=== PATIENT | female | born 1960 | race Caucasian/White ===

== ENCOUNTER 2017-10-16 06:36 | Emergency (ER) | payer BC, SELFPAY ==
[2017-10-16 06:37] VITALS: BP 204/93; PULSE 58; RESP 16; TEMP 36.4; O2SAT 98; BMI 22.0
--- NOTE | 2017-10-16 07:06 | EKG12_ITS ---
Test Reason : DIZZINESS Blood Pressure : / mmHG Vent. Rate : 055 BPM Atrial Rate : 055 BPM P-R Int : 188 ms QRS Dur : 078 ms QT Int : 434 ms P-R-T Axes : 050 064 086 degrees QTc Int : 415 ms Sinus bradycardia Nonspecific T wave abnormality Abnormal ECG Confirmed by HEMA DE LEON, ROSE ([id number]), order editor AUDI WEEKS ([id number]) on 10/18/2017 12:57:34 PM Referred By: FREDO Confirmed By:ROSE GARRIDO MD
[2017-10-16 07:19] VITALS: BP 157/98; BP 162/90; BP 175/92; PULSE 52; PULSE 55; PULSE 57
[2017-10-16] MEDS: 0.9% Normal Saline 1,000 ML 150 ML IV (07:19)
[2017-10-16 07:24] LABS: Absolute Lymphocyte Count 1.37 X10^3/ul (0.83-4.51); Absolute Neutrophil Count 4.6 X10^3/uL (2.0-7.7); Basophil# 0.04 X10^3/uL; Basophil% 0.6 % (0-1); Eosinophil# 0.17 X10^3/uL; Eosinophils% 2.5 % (0-5); Hematocrit 38.1 % (37-47); Hemoglobin 12.4 g/dl (12.0-15.0); Lymphocyte # 1.37 X10^3/ul (4.0); Lymphocyte % 19.9 % (19-41); Mean Corp Hgb Conc 32.5 g/gl (32-36); Mean Corpuscular Hgb 29.1 pg (27.0-32.0); Mean Corpuscular Volume 89.4 fL (81-99); Mean Platelet Vol. 10.7 fl (6.2-12.0); Monocyte# 0.67 X10^3/uL; Monocyte% 9.7 % (0-10); Neutrophil # 4.62 X10^3/uL (2.7-7.7); Neutrophil % 67.2 % (47-70); POSITIVE COUNT NO; POSITIVE DIFFERENTIAL NO; POSITIVE MORPHOLOGY NO; Platelet Count 240 K/mm3 (150-450); RBC Distribution Width CV 13.4 % (11.6-14.6); RBC Distribution Width SD 43.8 fl (35.1-43.9); Red Blood Count 4.26 M/mm3 (4.2-5.4); White Blood Count 6.9 K/mm3 (4.4-11.0)
[2017-10-16 07:31] LABS: Anion Gap 7 (5-15); BUN 18 mg/dL (7-18); BUN/Creat Ratio 28.6 RATIO (10-20); Calcium,Total 8.9 mg/dL (8.5-10.1); Chloride 105 mmol/L (98-107); Creatinine, Serum 0.63 mg/dL (0.55-1.02); EST Glomerular Filtration Rate 103 mL/min (>60); Est Glom Filt Rate - Afr Amer 124 mL/min (>60); Glucose 116 mg/dL (74-106); Potassium 3.8 mmol/L (3.5-5.1); Sodium Level 140 mmol/L (136-145)
[2017-10-16 08:04] VITALS: BP 163/81; PULSE 54; RESP 16; O2SAT 99
--- NOTE | 2017-10-16 08:04 | ED.DCSUM_ITS ---
- ER Visit Summary Date of Service: 10/16/17 Chief Complaint: [Nose bleed and dizziness] History of Present Illness: The patient is a 57 F [presents to the emergency department with complaint of feeling lightheaded this morning. Patient states that she had a spontaneous nosebleed from the left side of her nose that started around 1:45 AM today. Patient states that it bled quite a bit and was running down the back of the throat to the point where she was swallowing blood that was thick and congealed. Patient states that it eventually the nosebleed stopped around 4 AM. Patient try to go to work but just did not feel normal so she comes in for evaluation today. Patient states that she did take her blood pressure medicines this morning. Patient denies any trauma to her nose. Patient does not get frequent nosebleeds. Patient is on Plavix and has a history of a cardiac stent. And states that normally her blood pressure is in the 130 systolic.] Denies recent illness. Patient denies any chest pain or shortness of breath. Patient denies exertional dyspnea. Denies vertiginous symptoms. Physical Examination: [HEENT-PERRLA, EOMI. Cranial nerves II through XII grossly intact. TMs clear. Mucous membranes moist. No adenopathy. Patient is noted to have small amount of dried blood in the left nasal vault with a small area of clot noted on the anterior septum where I suspect the source of the bleeding originated. There is no blood down the posterior oropharynx. Cardiovascular-regular rate and rhythm without murmur or ectopy Lungs-clear to auscultation, chest wall stable without crepitus or subcu emphysema Abdomen-normoactive bowel sounds, soft, nontender, no rebound or rigidity, no peritoneal signs. Extremities-intact ?4, normal range of motion, normal pulses, atraumatic] Test Results: [EKG obtained showed a sinus rhythm with a ventricular rate of 55 bpm with some nonspecific ST changes. CBC with differential was normal. Chemistries were normal. Troponin was less than 0.02. Orthostatic vital signs were negative] Emergency Department Course and Treatment: [Was just observed in the emergency department and her blood pressure improved into the 150s and 160s systolic with diastolics in the 80s. When I feel no further treatment of her blood pressures indicated.] Treatment Plan: [Patient advised to rest today and advised not to pick or blow her nose. Patient advised that if her know should start bleeding again to hold constant pressure for 20 minutes and if that does not resolve it to return to the emergency department.] Disposition: [Discharged to home in stable condition.] Impression: [Epistaxis left anterior septum Hypertension-established Dizziness-resolved ] This note was generated with [employer] dictation software. It may contain incorrect words, spelling, and punctuation that were not noted in review of the chart prior to signing ED Disposition - Plan for ED Patient: Chief Complaint: Dizziness Referrals: Care Physician,No Primary [Primary Care Provider] -
--- NOTE | 2017-10-16 08:05 | ED.DEP ---
ED Disposition - Plan for ED Patient: Chief Complaint: Dizziness Instructions: ED Dizziness UKO, ED Nosebleed, ED HTN Established Referrals: Care Physician,No Primary [Primary Care Provider] - Brian Stephenson III, MD [STAFF PHYSICIAN] - 3-5 Days
== END 2017-10-16 08:12 | disposition home or self-care (01) ==
PROVIDERS: Emergency Provider Emergency Medicine
DX: R04.0 Epistaxis (principal); I10 Essential (primary) hypertension; R42 Dizziness and giddiness; I25.10 Atherosclerotic heart disease of native coronary artery without angina pectoris; Z90.710 Acquired absence of both cervix and uterus; Z95.5 Presence of coronary angioplasty implant and graft; Z98.1 Arthrodesis status; Z79.02 Long term (current) use of antithrombotics/antiplatelets; Z79.899 Other long term (current) drug therapy; Z72.0 Tobacco use
CPT/HCPCS: 80048; 84484; 85025; 93005; 96360; 99285; A4216

== ENCOUNTER → 2018-06-22 09:48 | Outpatient (CLI) | payer BC, SELFPAY ==
[2018-06-22 11:43] LABS: AST(SGOT) 25 U/L (15-37); Alanine Aminotransfer ALT/SGPT 28 U/L (13-56); Albumin, Serum 3.3 g/dL (3.2-5.0); Alkaline Phosphatase 86 U/L (45-117); Anion Gap 6 (5-15); BUN 13 mg/dL (7-18); BUN/Creat Ratio 23.6 RATIO (10-20); Bilirubin, Direct 0.16 mg/dL (0.00-0.30); Calcium,Total 8.4 mg/dL (8.5-10.1); Chloride 108 mmol/L (98-107); Cholesterol 101 mg/dL (200); Creatinine, Serum 0.55 mg/dL (0.55-1.02); EST Glomerular Filtration Rate 120 mL/min (>60); Est Glom Filt Rate - Afr Amer 145 mL/min (>60); Globulin 3.5 g/dL (2.2-4.2); Glucose 96 mg/dL (74-106); High Density Lipoprotein 54 mg/dL; Potassium 4.1 mmol/L (3.5-5.1); Protein, Total 6.8 g/dL (6.4-8.2); Sodium Level 140 mmol/L (136-145); Triglycerides 44 mg/dL; Very Low Density Lipoprotein 9 mg/dL (5-40)
== END ==
PROVIDERS: Family Provider Internal Medicine; PCP Internal Medicine; Referring Provider Nurse Practitioner Family; Visit Provider Nurse Practitioner Family
DX: I10 Essential (primary) hypertension (principal); I25.10 Atherosclerotic heart disease of native coronary artery without angina pectoris; E78.00 Pure hypercholesterolemia, unspecified; Z95.5 Presence of coronary angioplasty implant and graft
CPT/HCPCS: 36415; 80048; 80061; 80076

== ENCOUNTER → 2019-07-15 09:44 | Outpatient (CLI) | payer BC, SELFPAY ==
[2019-07-09 16:02] VITALS: BMI 21.7
--- NOTE | 2019-07-15 09:45 | CDU_ITS ---
Reason For Study: carotid stenosis Rt. Velocities/BP Lt. Velocities/BP Prox CCA 83.3/15.5 cm/sec. Prox CCA 102.7/24.1 cm/sec. Mid CCA 78.1/15.5 cm/sec. Mid CCA 81.8/24.1 cm/sec. Dist CCA 72.9/19.4 cm/sec. Dist CCA 64.4/18.2 cm/sec. Prox ICA 54.1/15.6 cm/sec. Prox ICA 66.6/23.7 cm/sec. Mid ICA 71.3/18.6 cm/sec. Mid ICA 74.3/23.7 cm/sec. Dist ICA 64.7/15.3 cm/sec. Dist ICA 74.3/27.0 cm/sec. Rt. ICA/CCA = 71.3/78.1=0.9. Lt. ICA/CCA = 74.3/81.8=0.9. Prox ECA 61.2/11.6 cm/sec. Prox ECA 67.7/17.1 cm/sec. Rt. Vert. 42.4/9.4 cm/sec. Lt. Vert. 41.8/7.8 cm/sec. Right Extracranial There is intimal thickening but no significant atherosclerotic plaque noted in the right common carotid artery. There is intimal thickening but no significant atherosclerotic plaque noted in the right internal carotid artery. There is no significant atherosclerotic plaque noted in the right external carotid artery. Antegrade flow is noted in the right vertebral artery. Left Extracranial There is intimal thickening but no significant atherosclerotic plaque noted in the left common carotid artery. There is heterogeneous, irregular atherosclerotic plaque noted in the left internal carotid artery. There is heterogeneous, irregular atherosclerotic plaque noted in the left external carotid artery. Antegrade flow is noted in the left vertebral artery. Procedure Carotid Duplex [id number]. The exam was diagnostic. Exam performed in department. Interpretation Summary Mild (<50%) stenosis right extracranial internal carotid. Mild (<50%) stenosis left extracranial internal carotid. Flow within the vertebral arteries is antegrade bilaterally. Ordering Physician: Feliz Clancy Referring Physician: Cora Nguyễn Performed By: Obdulia Doherty RDCS, RVT
[2019-07-15 13:08] LABS: AST(SGOT) 22 U/L (15-37); Alanine Aminotransfer ALT/SGPT 28 U/L (13-56); Albumin, Serum 3.4 g/dL (3.2-5.0); Alkaline Phosphatase 78 U/L (45-117); Bilirubin, Direct 0.16 mg/dL (0.00-0.30); Cholesterol 108 mg/dL (200); Globulin 3.2 g/dL (2.2-4.2); High Density Lipoprotein 53 mg/dL; Protein, Total 6.6 g/dL (6.4-8.2); Triglycerides 61 mg/dL; Very Low Density Lipoprotein 12 mg/dL (5-40)
== END ==
PROVIDERS: Family Provider Internal Medicine; PCP Internal Medicine; Referring Provider Internal Medicine Cardiovascular Disease; Visit Provider Internal Medicine Cardiovascular Disease
DX: I73.9 Peripheral vascular disease, unspecified (principal); E78.00 Pure hypercholesterolemia, unspecified; I65.23 Occlusion and stenosis of bilateral carotid arteries
CPT/HCPCS: 36415; 80061; 80076; 93880

== ENCOUNTER 2019-08-12 09:47 | Emergency (ER) | payer BC, SELFPAY ==
[2019-07-09 16:02] VITALS: BMI 21.7
[2019-08-12 09:47] VITALS: BP 161/104; PULSE 102; RESP 16; TEMP 36.6; O2SAT 98; BMI 20.9
--- NOTE | 2019-08-12 10:12 | ED.DCSUM_ITS ---
History of Present Illness Chief Complaint: Nosebleed Informant: Patient Onset: Today Timing: Continuous Narrative: Patient is a 59-year-old female with a history of coronary artery disease status post stent placement presenting with a nosebleed. Patient states she has had nosebleeds in the past and has followed with ENT before for her ears. She notes this morning she blew her nose when her nose started bleeding. She held pressure but it continued to bleed. Patient states that she tilts her head back she feels blood-brain to the back of her throat. Is been out of the left side. She has associated pain or lightheadedness. Is been persistent for a little over 2 hours she came to the emergency room for further evaluation. She denies any other complaints at this time. She notes she is on Plavix and does tend to bleed easily if she cuts herself. Past Medical History - Allergies and Home Meds Allergies/Adverse Reactions: Allergies codeine Allergy (Intermediate, Verified 08/12/19 09:47) nausea and vomiting Primary Care Physician: Cora Nguyễn MD [Primary Care Provider] - Past Medical History: - - Coronary artery disease, hypertension, hyperlipidemia Surgical History: - - PCI Smoking Status: Heavy Smoker (>10/day) Review of Systems General: Denies: Chills, Fever, Sweats Eyes: Denies: Visual changes - bilaterally, Diplopia ENT: Reports: - - Epistaxis. Denies: Rhinorrhea, Sore throat Cardiovascular: Denies: Chest pain, Palpitations Respiratory: Denies: Dyspnea, Cough, Dyspnea on exertion Gastrointestinal: Denies: Abdominal pain, Nausea, Vomiting, Diarrhea, Melena, Hematochezia Genitourinary: Denies: Dysuria, Hematuria, Frequency Musculoskeletal: Denies: Back pain, Extremity Pain Skin: Denies: Rash, Wounds Neurological: Denies: Headache, Weakness, Numbness Physical Exam Vital Signs/Narrative: Vital Signs Temp Pulse Resp BP Pulse Ox 08/12/19 09:47 97.8 F 102 H 16 161/104 H 98 Inital Vital Signs reviewed: Yes General: Well nourished, Well developed, No Acute Distress Head: Normocephalic, Atraumatic Eyes: Perrl, EOMI ENT: Moist mucous membranes, No rhinorrhea, - - Epistaxis from the left naris present. There is active bleeding. A clot is visualized in the oropharynx but no active bleeding. The source of bleeding cannot be visualized on exam. Neck: Supple, Nontender Cardiovascular: Regular rate, Regular rhythm, No murmurs Respiratory: No distress, CTA bilaterally, Chest nontender Abdomen: Soft, Nontender, Nondistended, Normal bowel sounds Back: Nontender, Normal Inspection Extremities: Nontender, No edema Skin: Normal color, No rash Neurological: Alert, Oriented x3, Cranial nerves II-XII grossly intact, Normal Strength, Normal Sensation Psychological: Normal affect, Normal Mood Procedures Procedure(s): Epistaxis care, nasal packing. Patient evacuate the clots from her nose. Afrin is inserted intranasally. Cottonball soaked in Slovan solution is then placed in the left naris which appears to be the source of the bleeding. After about 5 minutes this is removed. Patient does not seem to have further bleeding at this time. Again I cannot visualize the source of bleeding. A 5.5 cm Rhino Rocket is placed. It does take 2 attempts as patient does not tolerate the discomfort well. 3 cc of air is inflated in the packing. Patient has no further evidence of bleeding. ED Disposition - Plan for ED Patient: Disposition: Home or Assisted Living Diagnosis: Epistaxis Instructions: Nosebleed Prescriptions: Amoxicillin/Potassium Clav [Augmentin 875-125 Tablet] 1 ea PO BID #14 tab Prescription Printed Ibuprofen [Motrin] 600 mg PO Q8H PRN PRN #15 tab PRN Reason: Pain Or Fever Prescription Printed Hydrocodone Bitart/Apap 5-325 [[place] 5MG-325MG] 1 tab PO Q8H PRN PRN 4 Days #12 tab PRN Reason: Pain Prescription Printed Referrals: Cora Nguyễn MD [Primary Care Provider] - Claudio Baron MD [STAFF PHYSICIAN] - Additional Instructions: Call Dr. Terrell, today to arrange follow-up over the next few days for removal of your nasal packing. Take the antibiotics as long as the packing is in place. Return if you have further bleeding or new symptoms.
[2019-08-12] MEDS: Oxymetazoline 0.05% 1 SPRAY SPRAY.BTL 2 SPRAY NASAL (10:37)
[2019-08-12] MEDS: Mixture 30 ML Bottle 5 ML TOPICAL (10:38)
[2019-08-12] MEDS: Ibuprofen 600 MG Tablet PO (11:39)
== END 2019-08-12 11:55 | disposition home or self-care (01) ==
PROVIDERS: Emergency Provider Emergency Medicine; Family Provider Internal Medicine; PCP Internal Medicine
DX: R04.0 Epistaxis (principal); I25.10 Atherosclerotic heart disease of native coronary artery without angina pectoris; I10 Essential (primary) hypertension; E78.5 Hyperlipidemia, unspecified; Z95.5 Presence of coronary angioplasty implant and graft; Z79.02 Long term (current) use of antithrombotics/antiplatelets; Z79.82 Long term (current) use of aspirin; Z79.899 Other long term (current) drug therapy; F17.200 Nicotine dependence, unspecified, uncomplicated
CPT/HCPCS: 30901; 99283; A4216

== ENCOUNTER 2019-10-25 15:56 | Inpatient (IN) | payer BC, SELFPAY ==
[2019-10-25 15:58] VITALS: BP 149/67; PULSE 55; RESP 17; TEMP 36.8; O2SAT 99; BMI 21.9
--- NOTE | 2019-10-25 16:13 | RAD_ITS ---
STUDY: X-RAY CHEST REASON FOR EXAM: Female, 59 years old. FALL, PRE OP, SMOKER, STENT TECHNIQUE: AP COMPARISON: None FINDINGS: Fusion hardware the lower cervical spine. Coarsened interstitial lung markings (suggesting fibrotic changes) but no airspace consolidation. There is no demonstrated pleural abnormality. Normal size heart. Normal mediastinum and rosamaria. Normal visualized pulmonary arteries. There is atherosclerotic calcification of the aortic arch with tortuosity. There is demineralization of the osseous structures. Normal visualized ribs, clavicles, and shoulders. There is no demonstrated abnormality of the visualized soft tissue structures of the upper abdomen. RAD/Chest 1 View (Portable) IMPRESSION: 1. No acute cardiopulmonary process. Electronically Signed: Luisito Peoples MD (Brooks) at 17:56 EST , Service support ,
--- NOTE | 2019-10-25 16:15 | RAD_ITS ---
STUDY: X-RAY - PELVIS AND LEFT HIP REASON FOR EXAM: Female, 59 years old. FALL, PAIN, DEFORMITY TECHNIQUE: 3 views of the pelvis and hip. COMPARISON: None. FINDINGS: There is a non-specific bowel gas pattern. Left hip soft tissue swelling noted. Normal bilateral iliac wings, sacroiliac joints and visualized sacrum. Normal bilateral superior and inferior pubic rami. Normal pubic symphysis. Normal bilateral ischial tuberosities. Normal visualized femoral head. Normal acetabulum. Normal hip joint. Left intratrochanteric fracture identified with varus deformity. There is approximately 2.3 cm of displacement of the lesser trochanter medially. RAD/HIP, UNI W/ Pelvis 2-3 Views IMPRESSION: Left intratrochanteric fracture with varus deformity. Electronically Signed: Luisito Peoples MD (Brooks) at 17:57 EST , Service support ,
--- NOTE | 2019-10-25 16:15 | ED.DCSUM_ITS ---
History of Present Illness Chief Complaint: Lower Extremity Injury Informant: Patient Onset: Today Current Severity: Severe Maximum Severity: Severe Narrative: Patient presents after fall with left hip injury. Patient states she was walking her dog on the side of the road when she caught her foot on the raised pavement. She landed directly on her left hip. Patient denies any other injury from her fall. EMS to give 50 mcg of fentanyl in route to the hospital. - Past Medical History (1) Anxiety Status: Chronic (2) Atherosclerosis of [place] coronary artery of [place] heart without angina pectoris Status: Chronic Comment: Stenting to LCX in March 2008; (3) Essential (primary) hypertension Status: Chronic (4) History of coronary artery stent placement Status: Chronic Comment: PCI/stent to LCX 03/11/08 (5) Pure hypercholesterolemia Status: Chronic Past Medical History - Allergies and Home Meds Allergies/Adverse Reactions: Allergies codeine Allergy (Intermediate, Verified 10/25/19 15:57) nausea and vomiting Primary Care Physician: Cora Nguyễn MD [Primary Care Provider] - Doctors: [facility] Prior records reviewed: Yes Surgical History: - - PCI Smoking Status: Heavy Smoker (>10/day) Review of Systems General: Denies: Chills, Fever Eyes: Denies: Visual changes - bilaterally ENT: Denies: Bilateral ear pain Cardiovascular: Denies: Chest pain Respiratory: Denies: Dyspnea, Cough Gastrointestinal: Denies: Abdominal pain, Nausea, Vomiting, Diarrhea Musculoskeletal: Reports: Extremity Pain Skin: Denies: Wounds Neurological: Denies: Headache Hematologic: Denies: Easy bruising, Easy bleeding Allergy: Denies: Uticaria Physical Exam Vital Signs/Narrative: Vital Signs Temp Pulse Resp BP Pulse Ox 10/25/19 15:58 98.2 F 55 L 17 149/67 H 99 Inital Vital Signs reviewed: Yes General: Well nourished, Well developed Head: Normocephalic ENT: Moist mucous membranes Neck: Supple Cardiovascular: Bradycardia Respiratory: No distress, CTA bilaterally Abdomen: Soft, Nontender Extremities: - - Tenderness over the left hip. No tenderness over the iliac wing. No tenderness of the knee or lower leg. Strong pulses are noted. She is able to wiggle toes. Patient is lying on her side so leg length discrepancy is difficult to determine at this time. Skin: Normal color Neurological: Alert, Oriented x3 Psychological: Normal affect Diagnostic/Tx/Re-eval Impressions Chest X-Ray 10/25/19 16:13 IMPRESSION: 1. No acute cardiopulmonary process. Electronically Signed: Luisito Peoples MD (Bro[place]) at 17:56 EST , Service support , Hip/Pelvis X-Ray 10/25/19 16:15 IMPRESSION: Left intratrochanteric fracture with varus deformity. Electronically Signed: Luisito Peoples MD (Brooks) at 17:57 EST , Service support , 10/25/19 16:13 Chest 1 View (Portable) [RAD] Stat 10/25/19 16:15 HIP, UNI W/ Pelvis 2-3 Views [RAD] Stat Laboratory Results 10/25/19 10/25/19 10/25/19 16:25 16:25 16:25 WBC 10.5 RBC 4.08 L Hgb 12.8 Hct 38.1 MCV 93.4 MCH 31.4 MCHC 33.6 RDW Std Deviation 46.2 H RDW Coeff of Ace 13.4 Plt Count 235 MPV 10.5 Immature Gran % (Auto) 0.500 Neut % (Auto) 71.5 H Lymph % (Auto) 18.2 L Person % (Auto) 8.3 Eos % (Auto) 1.0 Baso % (Auto) 0.5 Absolute Neuts (auto) 7.5 Absolute Lymphs (auto) 1.91 Nucleated RBC % 0 PT 13.9 INR 1.1 APTT 28.4 Sodium 144 Potassium 3.2 L Chloride 111 H Carbon Dioxide 29.0 Anion Gap 4 L BUN 13 Creatinine 0.63 Estim Creat Clear Calc 91.19 Est GFR (MDRD) Af Amer 123 Est GFR (MDRD) Non-Af 102 BUN/Creatinine Ratio 20.6 H Glucose 116 H Calcium 8.9 - Medical Decision Making Work-up does confirm left intertrochanteric hip fracture. Patient has received multiple small doses of Dilaudid while in the emergency room for pain control. On repeat examination patient still having a lot of spasm in her left thigh. She is given a small dose of Valium to help with spasm. I spoke with Dr. Moura as patient is known to us to orthopedics. Have also spoken with hospitalist. ED Disposition - Plan for ED Patient: Disposition: Acute Care Hospital [facility] Diagnosis: Closed left hip fracture Referrals: Cora Nguyễn MD [Primary Care Provider] -
[2019-10-25 16:33] LABS: Absolute Lymphocyte Count 1.91 X10^3/uL (0.83-4.51); Absolute Neutrophil Count 7.5 X10^3/uL (2.0-7.7); Basophil# 0.05 X10^3/uL; Basophil% 0.5 % (0-1); Hematocrit 38.1 % (37-47); Hemoglobin 12.8 g/dL (12.0-15.0); Lymphocyte # 1.91 X10^3/ul (4.0); Lymphocyte % 18.2 % (19-41); Mean Corp Hgb Conc 33.6 g/dL (32-36); Mean Corpuscular Hgb 31.4 pg (27.0-32.0); Mean Corpuscular Volume 93.4 fL (81-99); Mean Platelet Vol. 10.5 fl (6.2-12.0); Monocyte# 0.87 X10^3/uL; Monocyte% 8.3 % (0-10); NRBC Flagged by Analyzer 0 % (0-5); Neutrophil # 7.51 X10^3/uL (2.7-7.7); Neutrophil % 71.5 % (47-70); Platelet Count 235 K/mm3 (150-450); RBC Distribution Width CV 13.4 % (11.6-14.6); RBC Distribution Width SD 46.2 fl (35.1-43.9); Red Blood Count 4.08 M/mm3 (4.2-5.4); White Blood Count 10.5 K/mm3 (4.4-11.0)
[2019-10-25] MEDS: 0.9% Normal Saline 1,000 ML 150 ML IV (16:39)
[2019-10-25] MEDS: Ondansetron 4 MG/2 ML Vial IV (16:39)
[2019-10-25] MEDS: HYDROmorphone 1 MG/ML Syringe 0.5 MG IV (16:40)
[2019-10-25 16:43] LABS: International Normalized Ratio 1.1; Prothrombin Time (Protime)PT. 13.9 SECONDS (11.7-14.9)
[2019-10-25 16:44] LABS: Partial Thromboplast Time 28.4 Seconds (24.1-36.2)
[2019-10-25 17:07] LABS: Anion Gap 4 (5-15); BUN 13 mg/dL (7-18); BUN/Creat Ratio 20.6 RATIO (10-20); Calcium,Total 8.9 mg/dL (8.5-10.1); Chloride 111 mmol/L (98-107); Creatinine, Serum 0.63 mg/dL (0.55-1.02); EST Glomerular Filtration Rate 102 mL/min (>60); Est Glom Filt Rate - Afr Amer 123 mL/min (>60); Estimated Creatinine Clearance 91.19 ml/min; Glucose 116 mg/dL (74-106); Potassium 3.2 mmol/L (3.5-5.1); Sodium Level 144 mmol/L (136-145)
[2019-10-25] MEDS: HYDROmorphone 0.5 MG/0.5 ML SYRINGE IV ×2 (17:22→18:07)
[2019-10-25 18:00] VITALS: BP 166/88; PULSE 61; RESP 16; O2SAT 92
--- NOTE | 2019-10-25 18:55 | PCM.HP.STD ---
History of Present Illness Date of Admission: 10/25/19 Chief Complaint: Left hip pain The patient is a 59 year old F with a PMH as below who presents after a fall today. She was out walking her dog and tripped on the curb and landed on her left side. She was brought in immediately by EMS. She was found to have a left intertrochanter hip fracture, and orthopedic surgery was consulted. She states that she is in her normal health and she has not been having any issues. She had one stent in 2007 but otherwise has been doing fine. Her lab work was remarkable for a potassium of 3.2, and her blood pressure is just a little bit elevated likely secondary to pain. Past Medical History Past Medical History (Chronic Problems): Chronic Problems (Last Reviewed 07/09/19 @ 15:57 by Isabela Harding) Anxiety (Chronic) Nicotine dependence, cigarettes, uncomplicated (Chronic) Nonrheumatic mitral (valve) insufficiency (Chronic) Nonrheumatic aortic (valve) insufficiency (Chronic) Pure hypercholesterolemia (Chronic) Essential (primary) hypertension (Chronic) History of coronary artery stent placement (Chronic ~03/11/08) PCI/stent to LCX 03/11/08 Atherosclerosis of [place] coronary artery of [place] heart without angina pectoris (Chronic) Stenting to LCX in March 2008; Medical History: Medical History (Last Reviewed 07/09/19 @ 15:57 by Isabela Harding) Nonrheumatic mitral (valve) insufficiency (Chronic) I34.0 Nonrheumatic aortic (valve) insufficiency (Chronic) I35.1 Pure hypercholesterolemia (Chronic) E78.00 Essential (primary) hypertension (Chronic) I10 Atherosclerosis of [place] coronary artery of [place] heart without angina pectoris (Chronic) I25.10 Stenting to LCX in March 2008; Allergies codeine Allergy (Intermediate, Verified 10/25/19 15:57) nausea and vomiting Home Medications: Ambulatory Orders Medication Instructions Recorded atenolol 25 mg tablet 25 mg PO DAILY #90 tab 04/29/19 niacin 500 mg tablet,extended 500 mg PO DAILY #90 tab 06/13/19 release 24 hr aspirin 81 mg tablet,delayed 81 mg PO DAILY 07/09/19 release ferrous gluconate 270 mg (27 mg 270 mg PO BID tab 07/09/19 iron) tablet ramipril 10 mg capsule 20 mg PO DAILY #90 cap 07/09/19 clopidogrel 75 mg tablet 75 mg PO DAILY #90 tab 07/19/19 atorvastatin 80 mg tablet 80 mg PO QHS #90 tab 08/05/19 Amoxicillin/Potassium Clav 1 ea PO BID #14 tab 08/12/19 [Augmentin 875-125 Tablet] Surgical History: Surgical History (Last Reviewed 07/09/19 @ 15:57 by Isabela Harding) History of coronary artery stent placement (Chronic) Onset Date: ~03/11/08 Z95.5 PCI/stent to LCX 03/11/08 History of hysterectomy Z90.710 History of open reduction and internal fixation (ORIF) procedure Z98.890 right side of neck for pinched nerve History of shoulder surgery Z98.890 right ligament repair History of tonsillectomy Z90.89 Surgical History: - - PCI Smoking Status: Heavy Smoker (>10/day) Tobacco Use: Cigarettes Alcohol: None Drugs: None - *Family History Maternal Family History: Family History (Last Reviewed 07/09/19 @ 15:57 by Isabela Harding) Father Myocardial infarction Mother Myocardial infarction Brother CAD (coronary artery disease) Hypertension Sister Hypertension Review of Systems Constitutional: Denies: Chills, Fever, Weight Change HEENT: Denies: Head Aches, Sinus Congestion, Sinus Drainage Cardiovascular: Denies: Chest Pain, Palpitations Respiratory: Denies: Cough, Shortness of breath at rest, Sputum production Gastrointestinal: Denies: Abdominal Pain, Nausea, Vomiting Genitourinary: Denies: Dysuria Musculoskeletal: Reports: Leg Pain. Denies: Joint Pain, Joint Tenderness Skin: Denies: Rash, Wounds Neurological: Denies: Numbness, Tingling, Focal weakness Psychiatric: Denies: Anxiety, Depression Hematologic/ Lymphatic: Denies: Easy Bruising, Easy Bleeding VTE Information - Inpt Only VTE Present on Admission: No Patient Problems: Active and Suspected Problems (Last Reviewed 07/09/19 @ 15:57 by Isabela Harding) Closed left hip fracture (Acute) - Physical Exam Vitals/I&O's: Vital Signs Temp Pulse Resp BP Pulse Ox 98.2 F 61 16 166/88 H 92 10/25/19 15:58 10/25/19 18:00 10/25/19 18:00 10/25/19 18:00 10/25/19 18:00 Oxygen Delivery Method Room Air Weight: 140 lb 3.424 oz Body Mass Index (BMI) 21.9 General: Alert, Oriented x3, Cooperative, No apparent distress HEENT: Atraumatic, PERRLA, EOMI, Normocephalic Oral: Moist Mucosa Neck: Supple, No JVD Lungs: Clear to auscultation, Normal air movement, No rhonchi, No wheeze, No rales Cardiovascular: Regular rate, Regular Rhythm, Normal S1, Normal S2, No murmurs Abdomen: Soft, Non Tender, Non-Distended, No Hepato-splenomegaly Extremities: No edema, Capillary Refill Less than 3 Seconds Musculoskeletal: Tenderness - Left hip with muscle spasm Neurological: Neuro grossly intact, Sensory exam intact to light touch and pain Psych/Mental Status: Normal Affect, Appropriate Laboratory Results 10/25/19 16:25: WBC 10.5, RBC 4.08 L, Hgb 12.8, Hct 38.1, MCV 93.4, MCH 31.4, MCHC 33.6, RDW Std Deviation 46.2 H, RDW Coeff of Ace 13.4, Plt Count 235, MPV 10.5, Immature Gran % (Auto) 0.500, Neut % (Auto) 71.5 H, Lymph % (Auto) 18.2 L, [place] % (Auto) 8.3, Eos % (Auto) 1.0, Baso % (Auto) 0.5, Absolute Neuts (auto) 7.5, Absolute Lymphs (auto) 1.91, Nucleated RBC % 0 10/25/19 16:25: PT 13.9, INR 1.1, APTT 28.4 10/25/19 16:25: Sodium 144, Potassium 3.2 L, Chloride 111 H, Carbon Dioxide 29.0, Anion Gap 4 L, BUN 13, Creatinine 0.63, Estim Creat Clear Calc 91.19, Est GFR (MDRD) Af Amer 123, Est GFR (MDRD) Non-Af 102, BUN/Creatinine Ratio 20.6 H, Glucose 116 H, Calcium 8.9 Current Medications Sodium Chloride () 1,000 mls @ 150 mls/hr IV .Q6H40M [facility] Last Admin: 10/25/19 16:39 Dose: 150 mls/hr Documented by: Assessment/Plan All Active Problems (Last Reviewed 11/06/19 @ 15:57 by Isabela Harding) Closed left hip fracture (Acute) 1. Left acute intertrochanteric hip fracture -Consult orthopedic surgery, plan for surgery on Sunday -Risk calculator is in the chart -PT/OT -IV and p.o. pain medications -We will also provide p.o. Valium for muscle spasms 2. CAD status post stent/HTN/HLD -Her most recent stent was in 2007 -Can hold her aspirin and her Plavix for surgery -Continue with atenolol, Lipitor, ramipril, niacin DVT: Lovenox Code Visit Inpatient E&M: 43705 Init Hosp L2
[2019-10-25] MEDS: diazePAM 5 MG Tablet 2.5 MG PO (19:18)
[2019-10-25 20:11] VITALS: BMI 22.0
[2019-10-25 20:15] VITALS: BP 161/92; PULSE 64; RESP 18; TEMP 36.4; O2SAT 96
[2019-10-25] MEDS: Morphine 4 MG/ML Syringe IV (20:33)
[2019-10-25] MEDS: diazePAM 2 MG Tablet 4 MG PO (20:33)
[2019-10-25] MEDS: Atorvastatin Calcium 80 MG Tablet PO (23:03)
[2019-10-25] MEDS: oxyCODONE 5 MG Tablet PO (23:03)
[2019-10-25 23:06] VITALS: BMI 22.0
[2019-10-26] VITALS (7 sets, daily range): BP systolic 147–188; BP diastolic 86–92; PULSE 59–74; RESP 16–18; TEMP 36.8–37.3; O2SAT 88–96
[2019-10-26] MEDS: diazePAM 2 MG Tablet 4 MG PO ×4 (01:16→22:59)
[2019-10-26] MEDS: Morphine 4 MG/ML Syringe IV ×7 (01:16→22:38)
[2019-10-26] MEDS: 0.9% Saline Lock 10 ML Syringe IV ×7 (01:19→19:11)
[2019-10-26] MEDS: oxyCODONE 5 MG Tablet PO ×4 (03:34→21:09)
[2019-10-26 06:15] LABS: Absolute Lymphocyte Count 0.84 X10^3/uL (0.83-4.51); Absolute Neutrophil Count 6.3 X10^3/uL (2.0-7.7); Basophil# 0.02 X10^3/uL; Basophil% 0.2 % (0-1); Eosinophil# 0.03 X10^3/uL; Eosinophils% 0.4 % (0-5); Hematocrit 36.2 % (37-47); Hemoglobin 11.6 g/dL (12.0-15.0); Lymphocyte # 0.84 X10^3/ul (4.0); Lymphocyte % 10.4 % (19-41); Mean Corpuscular Hgb 30.7 pg (27.0-32.0); Mean Corpuscular Volume 95.8 fL (81-99); Mean Platelet Vol. 10.9 fl (6.2-12.0); Monocyte# 0.85 X10^3/uL; Monocyte% 10.5 % (0-10); NRBC Flagged by Analyzer 0 % (0-5); Neutrophil # 6.32 X10^3/uL (2.7-7.7); Neutrophil % 78.1 % (47-70); Platelet Count 176 K/mm3 (150-450); RBC Distribution Width CV 13.7 % (11.6-14.6); RBC Distribution Width SD 48.5 fl (35.1-43.9); Red Blood Count 3.78 M/mm3 (4.2-5.4); White Blood Count 8.1 K/mm3 (4.4-11.0)
[2019-10-26 06:38] LABS: Anion Gap 5 (5-15); BUN 14 mg/dL (7-18); BUN/Creat Ratio 28.3 RATIO (10-20); Calcium,Total 8.4 mg/dL (8.5-10.1); Chloride 110 mmol/L (98-107); EST Glomerular Filtration Rate 135 mL/min (>60); Est Glom Filt Rate - Afr Amer 163 mL/min (>60); Estimated Creatinine Clearance 110.61 ml/min; Glucose 120 mg/dL (74-106); Potassium 4.1 mmol/L (3.5-5.1); Sodium Level 139 mmol/L (136-145)
--- NOTE | 2019-10-26 07:38 | PCM.PN.HOSP ---
Patient Problems: Active and Suspected Problems (Last Reviewed 07/09/19 @ 15:57 by Isabela Harding) Closed left hip fracture (Acute) Reason for Visit: Follow-up on left hip fracture Subjective: Patient was seen and examined. She complains of severe pain in the left hip. Denied any dizziness or palpitations or shortness of breath. Objective: Physical exam: General: Alert, Oriented x3, Cooperative, No apparent distress HEENT: Atraumatic, PERRLA, EOMI, Normocephalic Oral: Moist Mucosa Neck: Supple, No JVD Lungs: Clear to auscultation, Normal air movement, No rhonchi, No wheeze, No rales Cardiovascular: Regular rate, Regular Rhythm, Normal S1, Normal S2, No murmurs Abdomen: Soft, Non Tender, Non-Distended, No Hepato-splenomegaly Extremities: No edema, underlies over the left hip, external rotation of the left lower extremity Musculoskeletal: Tenderness - Left hip with muscle spasm Neurological: Neuro grossly intact, Sensory exam intact to light touch and pain Psych/Mental Status: Normal Affect, Appropriate Vitals/I&O's: Vital Signs Temp Pulse Resp BP Pulse Ox 99.1 F 74 17 147/92 H 95 10/26/19 02:15 10/26/19 02:15 10/26/19 02:15 10/26/19 02:15 10/26/19 02:15 Oxygen Delivery Method Room Air Weight: 63.6 kg Body Mass Index (BMI) 22.0 Intake and Output for Last 24 Hours 10/24/19 10/25/19 10/26/19 23:59 23:59 23:59 Intake Total 1000 / 1000 740 / 740 Output Total 650 / 650 Balance 1000 / 1000 90 / 90 Laboratory Results 10/25/19 16:25: WBC 10.5, RBC 4.08 L, Hgb 12.8, Hct 38.1, MCV 93.4, MCH 31.4, MCHC 33.6, RDW Std Deviation 46.2 H, RDW Coeff of Ace 13.4, Plt Count 235, MPV 10.5, Immature Gran % (Auto) 0.500, Neut % (Auto) 71.5 H, Lymph % (Auto) 18.2 L, Evangeline % (Auto) 8.3, Eos % (Auto) 1.0, Baso % (Auto) 0.5, Absolute Neuts (auto) 7.5, Absolute Lymphs (auto) 1.91, Nucleated RBC % 0 10/25/19 16:25: PT 13.9, INR 1.1, APTT 28.4 10/25/19 16:25: Sodium 144, Potassium 3.2 L, Chloride 111 H, Carbon Dioxide 29.0, Anion Gap 4 L, BUN 13, Creatinine 0.63, Estim Creat Clear Calc 91.19, Est GFR (MDRD) Af Amer 123, Est GFR (MDRD) Non-Af 102, BUN/Creatinine Ratio 20.6 H, Glucose 116 H, Calcium 8.9 10/26/19 05:53: WBC 8.1, RBC 3.78 L, Hgb 11.6 L, Hct 36.2 L, MCV 95.8, MCH 30.7, MCHC 32.0, RDW Std Deviation 48.5 H, RDW Coeff of Ace 13.7, Plt Count 176, MPV 10.9, Immature Gran % (Auto) 0.400, Neut % (Auto) 78.1 H, Lymph % (Auto) 10.4 L, Evangeline % (Auto) 10.5 H, Eos % (Auto) 0.4, Baso % (Auto) 0.2, Absolute Neuts (auto) 6.3, Absolute Lymphs (auto) 0.84, Nucleated RBC % 0 10/26/19 05:53: Sodium 139, Potassium 4.1, Chloride 110 H, Carbon Dioxide 24.0, Anion Gap 5, BUN 14, Creatinine 0.50 L, Estim Creat Clear Calc 110.61, Est GFR (MDRD) Af Amer 163, Est GFR (MDRD) Non-Af 135, BUN/Creatinine Ratio 28.3 H, Glucose 120 H, Calcium 8.4 L Current Medications Atenolol (Tenormin (Beta Zeina)) 25 mg PO DAILY [facility] Atorvastatin Calcium (Lipitor) 80 mg PO QHS [facility] Last Admin: 10/25/19 23:03 Dose: 80 mg Documented by: Diazepam (Valium) 4 mg PO 4X/DAY PRN PRN PRN Reason: Muscle spasm left leg Last Admin: 10/26/19 01:16 Dose: 4 mg Documented by: Enoxaparin Sodium (Lovenox) 40 mg SC DAILY [facility] Sodium Chloride () 250 mls @ 15 mls/hr IV .[id number] PRN PRN Reason: Saline Flush Melatonin (Melatonin) 3 mg PO QHS PRN PRN PRN Reason: INSOMNIA Morphine Sulfate () 4 mg IV Q3H PRN PRN PRN Reason: Pain Score 6-10/10 Last Admin: 10/26/19 04:59 Dose: 4 mg Documented by: Ondansetron HCl (Zofran) 4 mg IV Q8H PRN PRN PRN Reason: NAUSEA/VOMITING Oxycodone HCl (Oxyir) 5 mg PO Q4H PRN PRN PRN Reason: Pain Score 4-5/10 Last Admin: 10/26/19 03:34 Dose: 5 mg Documented by: Ramipril (Altace) 20 mg PO DAILY [facility] Sodium Chloride () 10 - 40 ml IV UD PRN PRN Reason: SALINE FLUSH Last Admin: 10/26/19 05:00 Dose: 10 ml Documented by: Medical Necessity - Tobacco Use Smoking Status: Heavy Smoker (>10/day) Tobacco Use: Cigarettes Assessment/Plan All Active Problems (Last Reviewed 07/09/19 @ 15:57 by Isabela Harding) Closed left hip fracture (Acute) 1. Acute left intertrochanteric hip fracture, pneumatic secondary to mechanical fall Her pain is uncontrolled, continue on oxycodone with morphine as needed 2. Hypertension, fairly uncontrolled, on continue with atenolol, ramipril, continue to monitor 3. CAD status post stent, on aspirin and plavis, statin and beta-zeina Will hold plavix as surgery is tomorrow. Continue aspirin today, hold aspirin tomorrow for surgery Continue on statin and beta-zeina 4. Hypokalemia, resolved, check in a.m. 5. DVT PPx- Lovenox Sc Code Visit Inpatient E&M: 72529 Subs Hosp L2
[2019-10-26] MEDS: Atenolol 25 MG Tablet PO (09:29)
[2019-10-26] MEDS: Enoxaparin 40 MG/0.4 ML Syringe SC (09:30)
[2019-10-26] MEDS: Ramipril 10 MG Capsule 20 MG PO (09:30)
[2019-10-26] MEDS: Aspirin E.C. 81 MG Tablet PO (09:39)
[2019-10-26] MEDS: 0.9% Normal Saline 1,000 ML 75 ML IV ×2 (09:40→22:39)
--- NOTE | 2019-10-26 10:07 | PCM.CONS.GEN ---
Reason for Consult Date of Consultation: 10/26/19 Reason for Consultation: Left hip pain History of Present Illness: The patient is a 59 year old F [who was walking her dog yesterday and fell on a crack in the sidewalk. She suffered a left hip fracture and was admitted to the hospital by the [facility] hospitalist. She reports pain only in her left hip at this time.] Past Medical History Past Medical History (Chronic Problems): Chronic Problems (Last Reviewed 07/09/19 @ 15:57 by Isabela Harding) Anxiety (Chronic) Nicotine dependence, cigarettes, uncomplicated (Chronic) Nonrheumatic mitral (valve) insufficiency (Chronic) Nonrheumatic aortic (valve) insufficiency (Chronic) Pure hypercholesterolemia (Chronic) Essential (primary) hypertension (Chronic) History of coronary artery stent placement (Chronic ~03/11/08) PCI/stent to LCX 03/11/08 Atherosclerosis of [place] coronary artery of [place] heart without angina pectoris (Chronic) Stenting to LCX in March 2008; Medical History: Medical History (Last Reviewed 07/09/19 @ 15:57 by Isabela Harding) Nonrheumatic mitral (valve) insufficiency (Chronic) I34.0 Nonrheumatic aortic (valve) insufficiency (Chronic) I35.1 Pure hypercholesterolemia (Chronic) E78.00 Essential (primary) hypertension (Chronic) I10 Atherosclerosis of [place] coronary artery of [place] heart without angina pectoris (Chronic) I25.10 Stenting to LCX in March 2008; Allergies codeine Allergy (Intermediate, Verified 10/25/19 15:57) nausea and vomiting Home Medications: Ambulatory Orders Medication Instructions Recorded atenolol 25 mg tablet 25 mg PO DAILY #90 tab 04/29/19 niacin 500 mg tablet,extended 500 mg PO DAILY #90 tab 06/13/19 release 24 hr aspirin 81 mg tablet,delayed 81 mg PO DAILY 07/09/19 release ferrous gluconate 270 mg (27 mg 270 mg PO BID tab 07/09/19 iron) tablet ramipril 10 mg capsule 20 mg PO DAILY #90 cap 07/09/19 clopidogrel 75 mg tablet 75 mg PO DAILY #90 tab 07/19/19 atorvastatin 80 mg tablet 80 mg PO QHS #90 tab 08/05/19 Amoxicillin/Potassium Clav 1 ea PO BID #14 tab 08/12/19 [Augmentin 875-125 Tablet] Surgical History: Surgical History (Last Reviewed 07/09/19 @ 15:57 by Isabela Harding) History of coronary artery stent placement (Chronic) Onset Date: ~03/11/08 Z95.5 PCI/stent to LCX 03/11/08 History of hysterectomy Z90.710 History of open reduction and internal fixation (ORIF) procedure Z98.890 right side of neck for pinched nerve History of shoulder surgery Z98.890 right ligament repair History of tonsillectomy Z90.89 Surgical History: - - PCI Smoking Status: Heavy Smoker (>10/day) Tobacco Use: Cigarettes Alcohol: None Drugs: None - *Family History Maternal Family History: Family History (Last Reviewed 07/09/19 @ 15:57 by Isabela Harding) Father Myocardial infarction Mother Myocardial infarction Brother CAD (coronary artery disease) Hypertension Sister Hypertension Review of Systems Musculoskeletal: Reports: Joint Pain - left hip upon falling. Denies prior left hip pain Patient Problems: Active and Suspected Problems (Last Reviewed 07/09/19 @ 15:57 by Isabela Harding) Closed left hip fracture (Acute) - Physical Exam Vitals/I&O's: Vital Signs Temp Pulse Resp BP Pulse Ox 98.3 F 62 18 162/87 H 92 10/26/19 09:27 10/26/19 09:27 10/26/19 09:27 10/26/19 09:27 10/26/19 09:27 Oxygen Flow Rate (L/min) 2 Oxygen Delivery Method Nasal Cannula Weight: 140 lb 3.424 oz Body Mass Index (BMI) 22.0 Intake and Output for Last 24 Hours 10/24/19 10/25/19 10/26/19 23:59 23:59 23:59 Intake Total 1000 / 1000 740 / 740 Output Total 650 / 650 Balance 1000 / 1000 90 / 90 General: Alert, Oriented x3, Cooperative Extremities: No clubbing, No cyanosis, No edema, Capillary Refill Less than 3 Seconds, No Calf Tenderness, Tenderness - About left hip with LLE shortening and external rotation. ROM not tested d/t known fx Neurological: Neuro grossly intact Laboratory Results 10/25/19 16:25: WBC 10.5, RBC 4.08 L, Hgb 12.8, Hct 38.1, MCV 93.4, MCH 31.4, MCHC 33.6, RDW Std Deviation 46.2 H, RDW Coeff of Ace 13.4, Plt Count 235, MPV 10.5, Immature Gran % (Auto) 0.500, Neut % (Auto) 71.5 H, Lymph % (Auto) 18.2 L, Carver % (Auto) 8.3, Eos % (Auto) 1.0, Baso % (Auto) 0.5, Absolute Neuts (auto) 7.5, Absolute Lymphs (auto) 1.91, Nucleated RBC % 0 10/25/19 16:25: PT 13.9, INR 1.1, APTT 28.4 10/25/19 16:25: Sodium 144, Potassium 3.2 L, Chloride 111 H, Carbon Dioxide 29.0, Anion Gap 4 L, BUN 13, Creatinine 0.63, Estim Creat Clear Calc 91.19, Est GFR (MDRD) Af Amer 123, Est GFR (MDRD) Non-Af 102, BUN/Creatinine Ratio 20.6 H, Glucose 116 H, Calcium 8.9 10/26/19 05:53: WBC 8.1, RBC 3.78 L, Hgb 11.6 L, Hct 36.2 L, MCV 95.8, MCH 30.7, MCHC 32.0, RDW Std Deviation 48.5 H, RDW Coeff of Ace 13.7, Plt Count 176, MPV 10.9, Immature Gran % (Auto) 0.400, Neut % (Auto) 78.1 H, Lymph % (Auto) 10.4 L, Carver % (Auto) 10.5 H, Eos % (Auto) 0.4, Baso % (Auto) 0.2, Absolute Neuts (auto) 6.3, Absolute Lymphs (auto) 0.84, Nucleated RBC % 0 10/26/19 05:53: Sodium 139, Potassium 4.1, Chloride 110 H, Carbon Dioxide 24.0, Anion Gap 5, BUN 14, Creatinine 0.50 L, Estim Creat Clear Calc 110.61, Est GFR (MDRD) Af Amer 163, Est GFR (MDRD) Non-Af 135, BUN/Creatinine Ratio 28.3 H, Glucose 120 H, Calcium 8.4 L Current Medications Aspirin (Ecotrin) 81 mg PO DAILY [facility] Last Admin: 10/26/19 09:39 Dose: 81 mg Documented by: Atenolol (Tenormin (Beta Zeina)) 25 mg PO DAILY [facility] Last Admin: 10/26/19 09:29 Dose: 25 mg Documented by: Atorvastatin Calcium (Lipitor) 80 mg PO QHS [facility] Last Admin: 10/25/19 23:03 Dose: 80 mg Documented by: Diazepam (Valium) 4 mg PO 4X/DAY PRN PRN PRN Reason: Muscle spasm left leg Last Admin: 10/26/19 01:16 Dose: 4 mg Documented by: Enoxaparin Sodium (Lovenox) 40 mg SC DAILY [facility] Last Admin: 10/26/19 09:30 Dose: 40 mg Documented by: Sodium Chloride () 250 mls @ 15 mls/hr IV .[id number] PRN PRN Reason: Saline Flush Sodium Chloride () 1,000 mls @ 75 mls/hr IV .[id number] [facility] Stop: 10/27/19 04:49 Last Admin: 10/26/19 09:40 Dose: 75 mls/hr Documented by: Cefazolin Sodium 2 gm/ Sodium (Chloride) 110 mls @ 150 mls/hr IV X1 ONE Stop: 10/27/19 10:49 Melatonin (Melatonin) 3 mg PO QHS PRN PRN PRN Reason: INSOMNIA Morphine Sulfate () 4 mg IV Q3H PRN PRN PRN Reason: Pain Score 6-10/10 Last Admin: 10/26/19 08:25 Dose: 4 mg Documented by: Ondansetron HCl (Zofran) 4 mg IV Q8H PRN PRN PRN Reason: NAUSEA/VOMITING Oxycodone HCl (Oxyir) 5 mg PO Q4H PRN PRN PRN Reason: Pain Score 4-5/10 Last Admin: 10/26/19 09:39 Dose: 5 mg Documented by: Ramipril (Altace) 20 mg PO DAILY [facility] Last Admin: 10/26/19 09:30 Dose: 20 mg Documented by: Sodium Chloride () 10 - 40 ml IV UD PRN PRN Reason: SALINE FLUSH Last Admin: 10/26/19 09:30 Dose: 10 ml Documented by: Assessment/Plan All Active Problems (Last Reviewed 07/09/19 @ 15:57 by Isabela Harding) Closed left hip fracture (Acute) Left intertrochanteric hip fracture Will plan to take patient to OR tomorrow for a gamma nail of the left hip. Potential risk, benefits, complications, surgical and non-surgical options as well as expected time of recovery were reviewed with the patient.
[2019-10-26] MEDS: Atorvastatin Calcium 80 MG Tablet PO (21:09)
[2019-10-27] VITALS (12 sets, daily range): BP systolic 142–196; BP diastolic 66–90; PULSE 59–76; RESP 16–18; TEMP 36.3–36.9; O2SAT 91–97; BMI 22.6
[2019-10-27] MEDS: Morphine 4 MG/ML Syringe IV ×5 (02:11→19:37)
--- NOTE | 2019-10-27 05:00 | EKG12_ITS ---
Test Reason : AM EKG Blood Pressure : / mmHG Vent. Rate : 062 BPM Atrial Rate : 062 BPM P-R Int : 188 ms QRS Dur : 084 ms QT Int : 414 ms P-R-T Axes : 039 018 090 degrees QTc Int : 420 ms Sinus rhythm with occasional Premature ventricular complexes Nonspecific T wave abnormality Abnormal ECG When compared with ECG of 16-OCT-2017 06:57, Premature ventricular complexes are now Present Nonspecific T wave abnormality, improved in Anterior leads T wave inversion now evident in Lateral leads Confirmed by JOSE MOYA ([id number]), acquisitions editor JOSSY VICENTE ([id number]) on 10/29/2019 3:13:05 PM Referred By: MARIANO Confirmed By:JOSE MOYA
[2019-10-27 05:27] LABS: Absolute Lymphocyte Count 1.06 X10^3/uL (0.83-4.51); Absolute Neutrophil Count 5.5 X10^3/uL (2.0-7.7); Basophil# 0.02 X10^3/uL; Basophil% 0.3 % (0-1); Eosinophil# 0.06 X10^3/uL; Eosinophils% 0.8 % (0-5); Hematocrit 35.9 % (37-47); Hemoglobin 11.4 g/dL (12.0-15.0); Lymphocyte # 1.06 X10^3/ul (4.0); Lymphocyte % 14.1 % (19-41); Mean Corp Hgb Conc 31.8 g/dL (32-36); Mean Corpuscular Hgb 30.5 pg (27.0-32.0); Mean Platelet Vol. 11.5 fl (6.2-12.0); Monocyte# 0.84 X10^3/uL; Monocyte% 11.2 % (0-10); NRBC Flagged by Analyzer 0 % (0-5); Neutrophil % 73.3 % (47-70); Platelet Count 152 K/mm3 (150-450); RBC Distribution Width CV 13.7 % (11.6-14.6); RBC Distribution Width SD 48.3 fl (35.1-43.9); Red Blood Count 3.74 M/mm3 (4.2-5.4); White Blood Count 7.5 K/mm3 (4.4-11.0)
[2019-10-27 05:39] LABS: ALB/GLOB Ratio 0.8 RATIO (0.9-2.4); AST(SGOT) 19 U/L (15-37); Alanine Aminotransfer ALT/SGPT 25 U/L (13-56); Albumin, Serum 2.8 g/dL (3.2-5.0); Alkaline Phosphatase 74 U/L (45-117); Anion Gap 5 (5-15); BUN 10 mg/dL (7-18); BUN/Creat Ratio 20.7 RATIO (10-20); Calcium,Total 8.3 mg/dL (8.5-10.1); Chloride 106 mmol/L (98-107); Creatinine, Serum 0.48 mg/dL (0.55-1.02); EST Glomerular Filtration Rate 138 mL/min (>60); Est Glom Filt Rate - Afr Amer 167 mL/min (>60); Estimated Creatinine Clearance 115.22 ml/min; Globulin 3.4 g/dL (2.2-4.2); Glucose 100 mg/dL (74-106); Potassium 3.9 mmol/L (3.5-5.1); Protein, Total 6.2 g/dL (6.4-8.2); Sodium Level 138 mmol/L (136-145)
[2019-10-27] MEDS: Atenolol 25 MG Tablet PO (09:01)
[2019-10-27] MEDS: oxyCODONE 5 MG Tablet PO (09:01)
[2019-10-27] MEDS: Ramipril 10 MG Capsule 20 MG PO (09:01)
[2019-10-27] MEDS: 0.9% Saline Lock 10 ML Syringe IV ×2 (09:49→12:56)
--- NOTE | 2019-10-27 11:00 | CASEMGMT ---
JOANA GUERRA Face to Face with patient for initial transition planning/care coordination assessment. RN CM introduced self and role at [facility]. Patient lying in bed, alert and oriented, family at bedside. Patient willing to participate in assessment and is able to answer all questions appropriately. Care providers, pharmacy, and demographics verified. Patient to have surgery today and not sure of disposition on discharge. Will monitor how patient does with therapy after surgery. RN CHARLIE provided list of HHC and SNF to patient and family that are in-network with insurance. Patient states she has no further needs or concerns at this time. CM to follow for discharge planning needs that may arise. 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 Patient independent at home prior to hospitalization. Transportation: DME/HHC: Patient has raised toilet. Will monitor patient's progress with therapy to determine disposition. Disposition Plan: MELANI SANTOS, RN, CM
[2019-10-27] MEDS: diazePAM 2 MG Tablet 4 MG PO ×2 (12:04→21:36)
--- NOTE | 2019-10-27 13:09 | NURSING ---
pt in transport to surgery at this time.
--- NOTE | 2019-10-27 13:55 | RAD_ITS ---
STUDY: X-RAY - PELVIS AND LEFT HIP REASON FOR EXAM: Female, 59 years old. POST OP ORIF GAMMA NAIL LEFT HIP TECHNIQUE: 5 fluoroscopic guided views of the pelvis and hip. COMPARISON: None. FINDINGS: 5 fluoroscopic guided views of the left hip were obtained status post open reduction internal fixation of intertrochanteric fracture.. Fracture fragments are in near anatomic alignment and position. RAD/Hip Min 2 Views (Portable) IMPRESSION: Status post ORIF intertrochanteric fracture of the left hip Electronically Signed: Albert Parnell MD at 16:08 EST , Service support ,
[2019-10-27] MEDS: Cefazolin 2 GM in 0.9% Normal Saline 100 ML IV (14:20)
--- NOTE | 2019-10-27 15:29 | OP.PCM_ITS ---
Report of Operation Date of Procedure: 10/27/19 Pre-Operative Diagnosis: Varus angulated intertrochanteric fracture left hip Post-Operative Diagnosis: same Surgery/Procedure Performed:: ORIF left hip Description of Surgical Findings:: Primary Surgeon/Physician: Brayan Moura automatic drilling machine operator: Alexy Hinojosa PA-C automatic drilling machine operator: Pre-Operative Diagnosis: Varus angulated intertrochanteric fracture left hip Post-Operative Diagnosis: same Surgery/Procedure Performed: ORIF left hip with Gamma nail Estimated Blood Loss: 100cc Specimen's Removed: none Type of Anesthesia: general ASA Class: 3 Implants: Procedure Description: The patient was greeted in the preoperative area. The [left ] lower extremity was marked with surgical marker. Preoperative antibiotics were administered. The patient was then placed in supine position on a fracture table, a padded perineal post was utilized, all bony prominences were well-padded. Patient's leg was then secured in the fracture leg garcia and the well leg was placed in the well-leg garcia both were well-padded. Closed reduction maneuver was then performed under biplanar fluoroscopic imaging. Once anatomic alignment of the fracture was confirmed the leg was prepped and draped in usual sterile fashion. Surgical timeout was performed and surgery was commenced. Fluoroscopic imaging was used to identify the tip of the greater trochanter. A 3 cm incision was then made 3 cm above the tip of the greater trochanter and a guidepin was then placed at the junction of the anterior one third and posterior two thirds of the greater trochanter. This was then placed intramedullary. an opening reamer was then used and a ball-tipped guidewire was then placed to the superior pole of the patella and measured. Sequential reaming was then commenced over the ball-tipped guidewire to the appropriate diameter and where chatter was identified. Appropriate size Gamma nail was then placed on the guide handle on the operating table and confirmed to be appropriately placed. This was then inserted into the body over the ball-tipped guidewire to the appropriate depth. A stab incision was then made on lateral aspect of the thigh for placement of the lag screw which was then placed in center-center position confirmed in both AP and lateral. This was then measured. Lag screw reamer was then used over the guidepin and the lag screw was then placed into subchondral bone with tip to apex distance less than 25 mm on both the AP and lateral. The insertion handle was then removed. Attention was then turned to the distal fixation. The distal guide on the [employer] system was used and a screw was then placed from lateral to medial through the eccentric hole distally. This was drilled measured and a screw was placed with excellent purchase. Final imaging was obtained with fluoroscopic imaging AP and lateral. The wounds were then irrigated with copious irrigation and closed in layers with 2-0 Vicryl and surgical kwame. A well-padded nonadherent dressing is applied patient was taken to recovery room in stable condition. My certified ophthalmic surgical assistant, Mr. Hinojosa, played a vital role in this procedure. He assisted in positioning the patient. He retracted soft tissue to provide optimal visualization during the procedure. And he closed the operative wounds. Postoperatively patient may be weightbearing as tolerated without restrictions automatic drilling machine operator: Loc Hinojosa Type of Anesthesia:: General Anesthesiologist: Roberto Johns Estimated Blood Loss (mL): 100cc - Admit VTE Documentation VTE Present on Admission: No VTE Mechan Device Prophylaxis: SCD's, Thigh High BRIJESH Hose VTE Pharm Prophylaxis ordered?: Yes
[2019-10-27] MEDS: Lactated Ringers 1,000 ML 100 ML IV (18:00)
--- NOTE | 2019-10-27 18:36 | PCM.PN.HOSP ---
Patient Problems: Active and Suspected Problems (Last Reviewed 07/09/19 @ 15:57 by Isabela Harding) Closed left hip fracture (Acute) Subjective: Patient was seen and examined today, she is somnolent after returning from her left hip surgery today with ORIF and gamma nail insertion. I talked briefly with the family at the bedside today-her and daughter-about having the patient go to inpatient short-term rehab either in the rehab unit here at the hospital or at a nursing home facility, patient's and daughter are in favor of this because the works a 12-hour day and is not going to be home all day long and he is concerned about leaving her at home alone. I told them that I would see if the rehab unit here would take the patient when she is medically stable. Patient has no complaints of any fevers or chills at this time, there is no complaints of any shortness of breath or chest pain. Vitals/I&O's: Vital Signs Temp Pulse Resp BP Pulse Ox 97.5 F L 68 16 152/67 H 93 10/27/19 17:25 10/27/19 17:25 10/27/19 17:25 10/27/19 17:25 10/27/19 17:25 Oxygen Flow Rate (L/min) 4 Oxygen Delivery Method Nasal Cannula Weight: 63.6 kg Body Mass Index (BMI) 22.6 Intake and Output for Last 24 Hours 10/25/19 10/26/19 10/27/19 23:59 23:59 23:59 Intake Total 1000 / 1000 1913.75 / 1913.75 1125 / 1125 Output Total 1050 / 1350 1800 / 1800 Balance 1000 / 1000 863.75 / 563.75 -675 / -675 General: Alert, Oriented x3, Cooperative, No apparent distress, Well developed HEENT: Atraumatic, PERRLA, EOMI, Normocephalic Oral: Moist Mucosa Neck: Supple, No JVD, Trachea Midline, Thyroid Normal Size and Texture Lungs: Clear to auscultation, Normal air movement, No rhonchi, No wheeze, No rales Cardiovascular: Regular rate, Regular Rhythm, Normal S1, Normal S2, Murmur - 2/6 systolic murmur is noted at the left sternal border and apex Abdomen: Bowel Sounds Present, Soft, Non Tender Extremities: No edema, Capillary Refill Less than 3 Seconds Skin: No rashes, No breakdown Musculoskeletal: No Tenderness to Palpation of Joints or Extremities Neurological: Cranial nerves II-XII grossly intact, Neuro grossly intact, Sensory exam intact to light touch and pain Psych/Mental Status: Normal Affect, Appropriate, - - Patient is drowsy at this time but is appropriate when answering questions and providing information Laboratory Results 10/27/19 04:35: WBC 7.5, RBC 3.74 L, Hgb 11.4 L, Hct 35.9 L, MCV 96.0, MCH 30.5, MCHC 31.8 L, RDW Std Deviation 48.3 H, RDW Coeff of Ace 13.7, Plt Count 152, MPV 11.5, Immature Gran % (Auto) 0.300, Neut % (Auto) 73.3 H, Lymph % (Auto) 14.1 L, [place] % (Auto) 11.2 H, Eos % (Auto) 0.8, Baso % (Auto) 0.3, Absolute Neuts (auto) 5.5, Absolute Lymphs (auto) 1.06, Nucleated RBC % 0 10/27/19 04:35: Sodium 138, Potassium 3.9, Chloride 106, Carbon Dioxide 27.0, Anion Gap 5, BUN 10, Creatinine 0.48 L, Estim Creat Clear Calc 115.22, Est GFR (MDRD) Af Amer 167, Est GFR (MDRD) Non-Af 138, BUN/Creatinine Ratio 20.7 H, Glucose 100, Calcium 8.3 L, Total Bilirubin 0.90, AST 19, ALT 25, Alkaline Phosphatase 74, Total Protein 6.2 L, Albumin 2.8 L, Globulin 3.4, Albumin/Globulin Ratio 0.8 L 10/27/19 04:35: Blood Type O POSITIVE, Antibody Screen NEGATIVE Current Medications Hydrocodone Bitart/Acetaminophen ([place] 5mg-325mg) 1 - 2 tablet PO Q6H PRN PRN PRN Reason: Pain Score 1-3/10 Aspirin (Ecotrin) 81 mg PO DAILY [facility] Last Admin: 10/27/19 17:38 Dose: Not Given Documented by: Atenolol (Tenormin (Beta Zeina)) 25 mg PO DAILY [facility] Last Admin: 10/27/19 09:01 Dose: 25 mg Documented by: Atorvastatin Calcium (Lipitor) 80 mg PO QHS [facility] Last Admin: 10/26/19 21:09 Dose: 80 mg Documented by: Diazepam (Valium) 4 mg PO 4X/DAY PRN PRN PRN Reason: Muscle spasm left leg Last Admin: 10/27/19 12:04 Dose: 4 mg Documented by: Enoxaparin Sodium (Lovenox) 40 mg SC DAILY [facility] Last Admin: 10/27/19 08:52 Dose: Not Given Documented by: Sodium Chloride () 250 mls @ 15 mls/hr IV .[id number] PRN PRN Reason: Saline Flush Lactated Ringer's () 1,000 mls @ 100 mls/hr IV .Q10H [facility] Cefazolin Sodium () 1 gm in 50 mls @ 150 mls/hr IV Q8H [facility] Stop: 10/28/19 06:19 Melatonin (Melatonin) 3 mg PO QHS PRN PRN PRN Reason: INSOMNIA Morphine Sulfate () 4 mg IV Q3H PRN PRN PRN Reason: Pain Score 6-10/10 Last Admin: 10/27/19 12:55 Dose: 4 mg Documented by: Ondansetron HCl (Zofran) 4 mg IV Q8H PRN PRN PRN Reason: NAUSEA/VOMITING Oxycodone HCl (Oxyir) 5 mg PO Q4H PRN PRN PRN Reason: Pain Score 4-5/10 Last Admin: 10/27/19 09:01 Dose: 5 mg Documented by: Ramipril (Altace) 20 mg PO DAILY [facility] Last Admin: 10/27/19 09:01 Dose: 20 mg Documented by: Sodium Chloride () 10 - 40 ml IV UD PRN PRN Reason: SALINE FLUSH Last Admin: 10/27/19 12:56 Dose: 10 ml Documented by: STROKE Vital Signs/Narrative: Vital Signs Temp Pulse Resp BP Pulse Ox 10/27/19 17:25 97.5 F L 68 16 152/67 H 93 10/27/19 16:46 97.9 F 62 16 162/76 H 94 10/27/19 16:30 59 L 16 149/70 H 94 10/27/19 16:15 60 16 159/76 H 94 10/27/19 16:00 62 16 174/66 H 93 02/24/20 15:47 97.4 F L 66 16 154/74 H 97 Medical Necessity - Tobacco Use Smoking Status: Heavy Smoker (>10/day) Tobacco Use: Cigarettes Assessment/Plan All Active Problems (Last Reviewed 07/09/19 @ 15:57 by Isabela Harding) Closed left hip fracture (Acute) #1 angulated intertrochanteric fracture of the left hip-postop day 0 ORIF with gamma nail-continue PT and OT, patient will likely need short-term placement in a nursing home facility. #2 valvular heart disease-mitral and aortic insufficiency #3 hyperlipidemia #4 essential hypertension #5 coronary artery disease-stable at this time 6 chronic anxiety Code Visit Inpatient E&M: 07422 Subs Hosp L2
[2019-10-27] MEDS: Atorvastatin Calcium 80 MG Tablet PO (21:36)
[2019-10-27] MEDS: Cefazolin 1 GM/50 ML BAG IV (21:37)
[2019-10-28 02:00] VITALS: BP 152/67; PULSE 82; RESP 20; TEMP 36.8; O2SAT 93
[2019-10-28] MEDS: Morphine 4 MG/ML Syringe IV ×2 (02:06→20:10)
[2019-10-28] MEDS: oxyCODONE 5 MG Tablet PO ×3 (06:30→16:48)
[2019-10-28] MEDS: Cefazolin 1 GM/50 ML BAG IV (06:30)
--- NOTE | 2019-10-28 07:40 | PN.ORTHO_ITS ---
Patient Problems: Active and Suspected Problems (Last Reviewed 07/09/19 @ 15:57 by Isabela Harding) Closed left hip fracture (Acute) Subjective: Patient sitting up in bed, awake. Patient states that her hip and buttocks is painful today. Patient denies chest pain, shortness of breath, calf pain, nausea vomiting. Patient this time has no other complaints. Objective: The proximal dressing is clean dry intact. The distal dressing has a small blood spot. There appears to be no active bleeding. Patient does have diffuse thigh swelling postoperatively. Patient has good flexion-extension of left knee. Patient has no calf tenderness. Patient is strong distal posterior tibial and dorsalis pedis pulses. No paracentesis of the left leg. Leg is cool to touch nonerythematous. Patient's vitals and labs were reviewed. Patient is afebrile, neurovascular is otherwise intact. Patient is in no respiratory distress, speaking in full sentences. - Physical Exam Vitals/I&O's: Vital Signs Temp Pulse Resp BP Pulse Ox 98.3 F 82 20 H 152/67 H 93 10/28/19 02:00 10/28/19 02:00 10/28/19 02:00 10/28/19 02:00 10/28/19 02:00 Oxygen Flow Rate (L/min) 2 Oxygen Delivery Method Nasal Cannula Weight: 63.6 kg Body Mass Index (BMI) 22.6 Intake and Output for Last 24 Hours 10/26/19 10/27/19 10/28/19 23:59 23:59 23:59 Intake Total 1913.75 / 1913.75 1536.67 / 1736.67 831.25 / 831.25 Output Total 1050 / 1350 1800 / 2200 850 / 850 Balance 863.75 / 563.75 -263.33 / -463.33 -18.75 / -18.75 General: Alert, Oriented x3 HEENT: PERRLA Oral: Moist Mucosa Neurological: Cranial nerves II-XII grossly intact Psych/Mental Status: Normal Affect, Alert and oriented to time, place, person, mood and affect Laboratory Results 10/27/19 04:35: Blood Type O POSITIVE, Antibody Screen NEGATIVE Current Medications Hydrocodone Bitart/Acetaminophen ([place] 5mg-325mg) 1 - 2 tablet PO Q6H PRN PRN PRN Reason: Pain Score 1-3/10 Aspirin (Ecotrin) 81 mg PO DAILY [facility] Last Admin: 10/27/19 17:38 Dose: Not Given Documented by: Atenolol (Tenormin (Beta Zeina)) 25 mg PO DAILY [facility] Last Admin: 10/27/19 09:01 Dose: 25 mg Documented by: Atorvastatin Calcium (Lipitor) 80 mg PO QHS [facility] Last Admin: 10/27/19 21:36 Dose: 80 mg Documented by: Diazepam (Valium) 4 mg PO 4X/DAY PRN PRN PRN Reason: Muscle spasm left leg Last Admin: 10/27/19 21:36 Dose: 4 mg Documented by: Enoxaparin Sodium (Lovenox) 40 mg SC DAILY [facility] Last Admin: 10/27/19 08:52 Dose: Not Given Documented by: Sodium Chloride () 250 mls @ 15 mls/hr IV .[id number] PRN PRN Reason: Saline Flush Lactated Ringer's () 1,000 mls @ 100 mls/hr IV .Q10H [facility] Last Infusion: 10/28/19 06:50 Dose: 15 mls/hr Documented by: Melatonin (Melatonin) 3 mg PO QHS PRN PRN PRN Reason: INSOMNIA Morphine Sulfate () 4 mg IV Q3H PRN PRN PRN Reason: Pain Score 6-10/10 Last Admin: 10/28/19 02:06 Dose: 4 mg Documented by: Ondansetron HCl (Zofran) 4 mg IV Q8H PRN PRN PRN Reason: NAUSEA/VOMITING Oxycodone HCl (Oxyir) 5 mg PO Q4H PRN PRN PRN Reason: Pain Score 4-5/10 Last Admin: 10/28/19 06:30 Dose: 5 mg Documented by: Ramipril (Altace) 20 mg PO DAILY [facility] Last Admin: 10/27/19 09:01 Dose: 20 mg Documented by: Sodium Chloride () 10 - 40 ml IV UD PRN PRN Reason: SALINE FLUSH Last Admin: 10/27/19 12:56 Dose: 10 ml Documented by: Medical Necessity - Tobacco Use Smoking Status: Heavy Smoker (>10/day) Tobacco Use: Cigarettes Assessment/Plan All Active Problems (Last Reviewed 07/09/19 @ 15:57 by Isabela Harding) Closed left hip fracture (Acute) Status post ORIF left hip fracture Plan 1. Continue all pain medications as prescribed 2. Physical therapy, toe-touch weightbearing with walker 3. Continue postop anticoagulation as directed by medicine 4. Encourage incentive spirometry 5. Ice to incisional area and anterior thigh left leg. 6. Shower 11/01/2019 7. Dressing to be changed on day of discharge to Ag dressing 8. Staple removal on 10/10/2019, and discontinue dressing 9. Follow-up with [facility] in 10 to 14 days, call for appointment 10. Discharge when cleared with medicine
[2019-10-28 07:50] VITALS: BP 142/85; PULSE 84; RESP 16; TEMP 36.6; O2SAT 93
[2019-10-28 08:46] VITALS: O2SAT 93
[2019-10-28] MEDS: Enoxaparin 40 MG/0.4 ML Syringe SC (10:28)
[2019-10-28] MEDS: Ramipril 10 MG Capsule 20 MG PO (10:28)
[2019-10-28] MEDS: Atenolol 25 MG Tablet PO (10:28)
[2019-10-28] MEDS: Aspirin E.C. 81 MG Tablet PO (10:28)
--- NOTE | 2019-10-28 10:47 | CASEMGMT ---
Social Work Note GRACIELA spoke with Amber with [facility] stating pt has been accepted to [facility] and she will submit for pre-cert once PT/OT notes are available. GRACIELA met with pt and pt's daughter present in room. SW updated pt that [facility] is willing to accept pt pending pre-cert but if pt gets denied pre-cert, then pt would need to look into SNF. Pt's daughter asked if pt gets denied [facility] and instead of going to SNF if pt could go home with HHC and aides. GRACIELA informed pt's daughter that going home is an option but per PT/OT pt was assist of two today. Pt and pt's daughter state understanding, agreeable to [facility]. GRACIELA spoke with PT/OT who recommend [facility] for pt, will document. Plan: [facility] pending pre-cert Falguni Knight [employer]ICK [employer]ARD [employer], JOB HONER
[2019-10-28 14:45] VITALS: BP 122/69; PULSE 76; RESP 16; TEMP 36.5; O2SAT 94
[2019-10-28] MEDS: cycloBENZAPRine HCl 10 MG Tablet PO (14:46)
--- NOTE | 2019-10-28 18:28 | PCM.PROGNOTE ---
Patient Problems: Active and Suspected Problems (Last Reviewed 07/09/19 @ 15:57 by Isabela Harding) Closed left hip fracture (Acute) Subjective: Patient was seen and examined today, she appeared confused to this examiner this afternoon, I found that she had been placed on Flexeril and I think this along with her opiates for pain have caused some confusion and the patient. Patient appears in no distress but she is not consistent with explaining things when I ask her questions. Patient denies any shortness of breath or chest discomfort, she remains on 2 L via nasal cannula at this time. - Physical Exam Vitals/I&O's: Vital Signs Temp Pulse Resp BP Pulse Ox 97.7 F L 76 16 122/69 H 94 10/28/19 14:45 10/28/19 14:45 10/28/19 14:45 10/28/19 14:45 10/28/19 14:45 Oxygen Flow Rate (L/min) 2 Oxygen Delivery Method Nasal Cannula Weight: 63.6 kg Body Mass Index (BMI) 22.6 Intake and Output for Last 24 Hours 10/26/19 10/27/19 10/28/19 23:59 23:59 23:59 Intake Total 1913.75 / 1913.75 1536.67 / 1736.67 1686.25 / 1686.25 Output Total 1050 / 1350 1800 / 2200 2370 / 2370 Balance 863.75 / 563.75 -263.33 / -463.33 -683.75 / -683.75 General: Alert, Cooperative, No apparent distress, Well developed, Confused HEENT: Atraumatic, PERRLA, EOMI, Normocephalic Oral: Moist Mucosa Neck: Supple, No JVD, Trachea Midline, Thyroid Normal Size and Texture Lungs: Clear to auscultation, Normal air movement, No rhonchi, No wheeze, No rales Cardiovascular: Regular rate, Regular Rhythm, Normal S1, Normal S2, PMI Normal, Murmur - 2/6 systolic murmur is noted at the apex and left sternal border, No rub noted, No Gallop Abdomen: Bowel Sounds Present, Soft, Non Tender, Non-Distended Extremities: No clubbing, No cyanosis, No edema, Capillary Refill Less than 3 Seconds Skin: No rashes Neurological: Cranial nerves II-XII grossly intact, Neuro grossly intact, Sensory exam intact to light touch and pain Psych/Mental Status: - - Patient is alert but has mild confusion and is consistent with providing answers to this examiner Current Medications Acetaminophen (Tylenol) 1,000 mg PO Q8 [facility] Hydrocodone Bitart/Acetaminophen ([place] 5mg-325mg) 1 - 2 tablet PO Q6H PRN PRN PRN Reason: Pain Score 1-3/10 Aspirin (Ecotrin) 81 mg PO DAILY [facility] Last Admin: 10/28/19 10:28 Dose: 81 mg Documented by: Atenolol (Tenormin (Beta Zeina)) 25 mg PO DAILY [facility] Last Admin: 10/28/19 10:28 Dose: 25 mg Documented by: Atorvastatin Calcium (Lipitor) 80 mg PO QHS [facility] Last Admin: 10/27/19 21:36 Dose: 80 mg Documented by: Diazepam (Valium) 4 mg PO 4X/DAY PRN PRN PRN Reason: Muscle spasm left leg Last Admin: 10/27/19 21:36 Dose: 4 mg Documented by: Enoxaparin Sodium (Lovenox) 40 mg SC DAILY [facility] Last Admin: 10/28/19 10:28 Dose: 40 mg Documented by: Sodium Chloride () 250 mls @ 15 mls/hr IV .[id number] PRN PRN Reason: Saline Flush Melatonin (Melatonin) 3 mg PO QHS PRN PRN PRN Reason: INSOMNIA Morphine Sulfate () 4 mg IV Q3H PRN PRN PRN Reason: Pain Score 6-10/10 Last Admin: 10/28/19 02:06 Dose: 4 mg Documented by: Nutritional Formula (Lactose Free) (Ensure Enlive) 120 ml PO 4X/DAY [facility] Last Admin: 10/28/19 17:57 Dose: 120 ml Documented by: Ondansetron HCl (Zofran) 4 mg IV Q8H PRN PRN PRN Reason: NAUSEA/VOMITING Oxycodone HCl (Oxyir) 5 mg PO Q4H PRN PRN PRN Reason: Pain Score 4-5/10 Last Admin: 10/28/19 16:48 Dose: 5 mg Documented by: Ramipril (Altace) 20 mg PO DAILY [facility] Last Admin: 10/28/19 10:28 Dose: 20 mg Documented by: Sodium Chloride () 10 - 40 ml IV UD PRN PRN Reason: SALINE FLUSH Last Admin: 10/27/19 12:56 Dose: 10 ml Documented by: Medical Necessity - Tobacco Use Smoking Status: Heavy Smoker (>10/day) Tobacco Use: Cigarettes Assessment/Plan All Active Problems (Last Reviewed 07/09/19 @ 15:57 by Isabela Harding) Closed left hip fracture (Acute) #1 angulated intertrochanteric fracture of the left hip-postop day 1 ORIF with gamma nail-continue PT and OT, at this time we are trying for placement in the rehab facility at [facility], I talked to the rehab consultant today and she will consider the patient. We are awaiting insurance approval for the transfer. Orthopedic surgery states that the patient is stable from their standpoint today #2 valvular heart disease-mitral and aortic insufficiency #3 hyperlipidemia #4 essential hypertension #5 coronary artery disease-stable at this time #6 chronic anxiety #7 medication reaction-confusion secondary to Flexeril and narcotic administration, Flexeril will be stopped at this time and the patient will be monitored. Patient is received no IV narcotics throughout the day. Code Visit Inpatient E&M: 69413 Subs Hosp L2
[2019-10-28] MEDS: 0.9% Saline Lock 10 ML Syringe IV (20:10)
[2019-10-28 20:45] VITALS: BP 128/66; PULSE 79; RESP 18; TEMP 36.3; O2SAT 96
[2019-10-28] MEDS: Acetaminophen 500 MG Tablet 1000 MG PO (22:31)
[2019-10-28] MEDS: Atorvastatin Calcium 80 MG Tablet PO (22:31)
[2019-10-28] MEDS: diazePAM 2 MG Tablet 4 MG PO (22:34)
[2019-10-29 02:45] VITALS: BP 101/62; PULSE 80; RESP 18; TEMP 36.6; O2SAT 95
[2019-10-29] MEDS: Acetaminophen 500 MG Tablet 1000 MG PO ×3 (06:07→21:58)
[2019-10-29] MEDS: oxyCODONE 5 MG Tablet PO ×4 (06:12→22:02)
[2019-10-29 08:06] VITALS: O2SAT 92
[2019-10-29 08:40] VITALS: BP 117/63; PULSE 77; RESP 16; TEMP 36.6; O2SAT 94
[2019-10-29] MEDS: Aspirin E.C. 81 MG Tablet PO (10:07)
[2019-10-29] MEDS: Ramipril 10 MG Capsule 20 MG PO (10:07)
[2019-10-29] MEDS: Enoxaparin 40 MG/0.4 ML Syringe SC (10:07)
[2019-10-29] MEDS: Atenolol 25 MG Tablet PO (10:07)
[2019-10-29 10:10] VITALS: O2SAT 92
--- NOTE | 2019-10-29 11:54 | CASEMGMT ---
Addendum entered by Falguni Knight 10/29/19 12:02: GRACIELA received call from Jannie in TCU stating Amber with [facility] called and pt's insurance will not approve [facility] but will approve SNF. Jannie states she can submit for pre-cert for TCU. GRACIELA spoke with pt, pt agreeable to TCU. Plan: TCU pending pre-cert. Original Note: Social Work Note GRACIELA placed a call to Amber with [facility] and left message asking about pre-cert. Per physician, pt is medically cleared for discharge once pre-cert is obtained. Plan: [facility] pending pre-cert Falguni Knight LATHE MACHINIST, RADIOLOGY MANAGER
[2019-10-29 14:30] VITALS: BP 129/75; PULSE 83; RESP 16; TEMP 36.8; O2SAT 95
--- NOTE | 2019-10-29 17:03 | PCM.PROGNOTE ---
Patient Problems: Active and Suspected Problems (Last Reviewed 07/09/19 @ 15:57 by Isabela Harding) Closed left hip fracture (Acute) Subjective: Patient was seen and examined today, she has no confusion today, she does not complain of any shortness of breath or chest discomfort. Patient was turned down to go to the rehab unit by her insurance carrier, we are now trying placement in a senior care facility short-term. - Physical Exam Vitals/I&O's: Vital Signs Temp Pulse Resp BP Pulse Ox 98.3 F 83 16 129/75 H 95 10/29/19 14:30 10/29/19 14:30 10/29/19 14:30 10/29/19 14:30 10/29/19 14:30 Oxygen Flow Rate (L/min) 3 Oxygen Delivery Method Nasal Cannula Weight: 63.6 kg Body Mass Index (BMI) 22.6 Intake and Output for Last 24 Hours 10/27/19 10/28/19 10/29/19 23:59 23:59 23:59 Intake Total 1536.67 / 1736.67 1686.25 / 1836.25 570 / 570 Output Total 1800 / 2200 2370 / 2370 1150 / 1150 Balance -263.33 / -463.33 -683.75 / -533.75 -580 / -580 General: Alert, Oriented x3, Cooperative, No apparent distress, Well developed, Well nourished HEENT: Atraumatic, PERRLA, EOMI, Normocephalic Oral: Moist Mucosa Neck: Supple, No JVD, Trachea Midline, Thyroid Normal Size and Texture Lungs: Clear to auscultation, Normal air movement, No rhonchi, No wheeze, No rales Cardiovascular: Regular rate, Regular Rhythm, Normal S1, Normal S2, Murmur - 2/6 systolic murmur noted at the apex and left sternal border Abdomen: Bowel Sounds Present, Soft, Non Tender, Non-Distended Extremities: No clubbing, No cyanosis, No edema, Capillary Refill Less than 3 Seconds Skin: No rashes Neurological: Cranial nerves II-XII grossly intact, Neuro grossly intact, Sensory exam intact to light touch and pain Psych/Mental Status: Normal Affect, Appropriate, Alert and oriented to time, place, person, mood and affect Current Medications Acetaminophen (Tylenol) 1,000 mg PO Q8 [facility] Last Admin: 10/29/19 14:34 Dose: 1,000 mg Documented by: Hydrocodone Bitart/Acetaminophen ([place] 5mg-325mg) 1 - 2 tablet PO Q6H PRN PRN PRN Reason: Pain Score 1-3/10 Aspirin (Ecotrin) 81 mg PO DAILY [facility] Last Admin: 10/29/19 10:07 Dose: 81 mg Documented by: Atenolol (Tenormin (Beta Zeina)) 25 mg PO DAILY [facility] Last Admin: 10/29/19 10:07 Dose: 25 mg Documented by: Atorvastatin Calcium (Lipitor) 80 mg PO QHS [facility] Last Admin: 10/28/19 22:31 Dose: 80 mg Documented by: Diazepam (Valium) 4 mg PO 4X/DAY PRN PRN PRN Reason: Muscle spasm left leg Last Admin: 10/28/19 22:34 Dose: 4 mg Documented by: Enoxaparin Sodium (Lovenox) 40 mg SC DAILY [facility] Last Admin: 10/29/19 10:07 Dose: 40 mg Documented by: Sodium Chloride () 250 mls @ 15 mls/hr IV .[id number] PRN PRN Reason: Saline Flush Melatonin (Melatonin) 3 mg PO QHS PRN PRN PRN Reason: INSOMNIA Morphine Sulfate () 4 mg IV Q3H PRN PRN PRN Reason: Pain Score 6-10/10 Last Admin: 10/28/19 20:10 Dose: 4 mg Documented by: Nutritional Formula (Lactose Free) (Ensure Enlive) 120 ml PO 4X/DAY [facility] Last Admin: 10/29/19 14:35 Dose: 120 ml Documented by: Ondansetron HCl (Zofran) 4 mg IV Q8H PRN PRN PRN Reason: NAUSEA/VOMITING Oxycodone HCl (Oxyir) 5 mg PO Q4H PRN PRN PRN Reason: Pain Score 4-5/10 Last Admin: 10/29/19 10:12 Dose: 5 mg Documented by: Ramipril (Altace) 20 mg PO DAILY [facility] Last Admin: 10/29/19 10:07 Dose: 20 mg Documented by: Sodium Chloride () 10 - 40 ml IV UD PRN PRN Reason: SALINE FLUSH Last Admin: 10/28/19 20:10 Dose: 10 ml Documented by: Medical Necessity - Tobacco Use Smoking Status: Heavy Smoker (>10/day) Tobacco Use: Cigarettes Assessment/Plan All Active Problems (Last Reviewed 07/09/19 @ 15:57 by Isabela Harding) Closed left hip fracture (Acute) #1 angulated intertrochanteric fracture of the left hip-postop day 2 ORIF with gamma nail-continue PT and OT, at this time we are trying for placement in a senior care facility for short-term rehab services #2 valvular heart disease-mitral and aortic insufficiency #3 hyperlipidemia #4 essential hypertension #5 coronary artery disease-stable at this time #6 chronic anxiety #7 medication reaction-confusion secondary to Flexeril and narcotic administration-resolved at this time Code Visit Inpatient E&M: 72956 Subs Hosp L2
[2019-10-29 21:28] VITALS: BP 121/66; PULSE 82; RESP 16; TEMP 37; O2SAT 97
[2019-10-29] MEDS: Atorvastatin Calcium 80 MG Tablet PO (21:58)
[2019-10-30] VITALS (7 sets, daily range): BP systolic 116–135; BP diastolic 63–75; PULSE 74–82; RESP 17–20; TEMP 36.6–37.2; O2SAT 86–94
[2019-10-30] MEDS: diazePAM 2 MG Tablet 4 MG PO ×3 (00:04→11:03)
[2019-10-30] MEDS: oxyCODONE 5 MG Tablet PO ×4 (03:28→21:01)
[2019-10-30] MEDS: Acetaminophen 500 MG Tablet 1000 MG PO ×3 (06:32→21:01)
[2019-10-30] MEDS: Atenolol 25 MG Tablet PO (08:22)
[2019-10-30] MEDS: Aspirin E.C. 81 MG Tablet PO (08:22)
[2019-10-30] MEDS: Ramipril 10 MG Capsule 20 MG PO (08:22)
[2019-10-30] MEDS: Enoxaparin 40 MG/0.4 ML Syringe SC (08:22)
[2019-10-30] MEDS: Bisacodyl 5 MG Tablet 10 MG PO (11:01)
[2019-10-30] MEDS: Magnesium Citrate 300 ML 150 ML PO (11:01)
--- NOTE | 2019-10-30 14:27 | PN.ORTHO_ITS ---
Patient Problems: Active and Suspected Problems (Last Reviewed 07/09/19 @ 15:57 by Isabela Harding) Closed left hip fracture (Acute) Subjective: Pt. up in chair. Reports thigh pain, but hip pain well controlled. Participated in PT earlier. - Physical Exam Vitals/I&O's: Vital Signs Temp Pulse Resp BP Pulse Ox 98.7 F 79 18 116/65 94 10/30/19 08:19 10/30/19 08:19 10/30/19 08:19 10/30/19 08:19 10/30/19 08:19 Oxygen Flow Rate (L/min) 2 Oxygen Delivery Method Nasal Cannula Weight: 140 lb 3.424 oz Body Mass Index (BMI) 22.6 Intake and Output for Last 24 Hours 10/28/19 10/29/19 10/30/19 23:59 23:59 23:59 Intake Total 1686.25 / 1836.25 1170 / 1170 1240 / 1240 Output Total 2370 / 2370 1900 / 1900 1200 / 1200 Balance -683.75 / -533.75 -730 / -730 40 / 40 General: Alert, Oriented x3, Cooperative, No apparent distress Extremities: No clubbing, No cyanosis, No edema, Capillary Refill Less than 3 Seconds, No Calf Tenderness, Tenderness - Primarily about left high. Compartments soft with no evidence of hematoma Skin: Incision - stable with dcant, dry drainage about the distal incision. Current Medications Acetaminophen (Tylenol) 1,000 mg PO Q8 [facility] Last Admin: 10/30/19 14:22 Dose: 1,000 mg Documented by: Hydrocodone Bitart/Acetaminophen ([place] 5mg-325mg) 1 - 2 tablet PO Q6H PRN PRN PRN Reason: Pain Score 1-5/10 Aspirin (Ecotrin) 81 mg PO DAILY [facility] Last Admin: 10/30/19 08:22 Dose: 81 mg Documented by: Atenolol (Tenormin (Beta Zeina)) 25 mg PO DAILY [facility] Last Admin: 10/30/19 08:22 Dose: 25 mg Documented by: Atorvastatin Calcium (Lipitor) 80 mg PO QHS [facility] Last Admin: 10/29/19 21:58 Dose: 80 mg Documented by: Diazepam (Valium) 4 mg PO 4X/DAY PRN PRN PRN Reason: Muscle spasm left leg Last Admin: 10/30/19 11:03 Dose: 4 mg Documented by: Enoxaparin Sodium (Lovenox) 40 mg SC DAILY [facility] Last Admin: 10/30/19 08:22 Dose: 40 mg Documented by: Sodium Chloride () 250 mls @ 15 mls/hr IV .[id number] PRN PRN Reason: Saline Flush Melatonin (Melatonin) 3 mg PO QHS PRN PRN PRN Reason: INSOMNIA Nutritional Formula (Lactose Free) (Ensure Enlive) 120 ml PO 4X/DAY [facility] Last Admin: 10/30/19 14:22 Dose: 120 ml Documented by: Ondansetron HCl (Zofran) 4 mg IV Q8H PRN PRN PRN Reason: NAUSEA/VOMITING Oxycodone HCl (Oxyir) 5 - 10 mg PO Q4H PRN PRN PRN Reason: Pain Score 6-10/10 Last Admin: 10/30/19 08:21 Dose: 10 mg Documented by: Ramipril (Altace) 20 mg PO DAILY [facility] Last Admin: 10/30/19 08:22 Dose: 20 mg Documented by: Sodium Chloride () 10 - 40 ml IV UD PRN PRN Reason: SALINE FLUSH Last Admin: 10/28/19 20:10 Dose: 10 ml Documented by: Medical Necessity - Tobacco Use Smoking Status: Heavy Smoker (>10/day) Tobacco Use: Cigarettes Assessment/Plan All Active Problems (Last Reviewed 07/09/19 @ 15:57 by Isabela Harding) Closed left hip fracture (Acute) s/p ORIF left hip Continue PT Discharge to TCU when stable per medicine and when insurance approves Follow up in office in 2 weeks
--- NOTE | 2019-10-30 17:33 | PN_ITS ---
Patient Problems: Active and Suspected Problems (Last Reviewed 07/09/19 @ 15:57 by Isabela Harding) Closed left hip fracture (Acute) Subjective: Patient was seen and examined today, she complained of pain in her left mid thigh area while sitting in a chair today. Patient has no complaints of any shortness of breath or chest discomfort, attempts to wean the patient to room air have not been successful so far and she remains on oxygen at 2 L via nasal cannula. - Physical Exam Vitals/I&O's: Vital Signs Temp Pulse Resp BP Pulse Ox 98.7 F 80 18 135/75 H 94 10/30/19 14:23 10/30/19 14:23 10/30/19 14:23 10/30/19 14:23 10/30/19 15:44 Oxygen Flow Rate (L/min) 2 Oxygen Delivery Method Nasal Cannula Weight: 63.6 kg Body Mass Index (BMI) 22.6 Intake and Output for Last 24 Hours 10/28/19 10/29/19 10/30/19 23:59 23:59 23:59 Intake Total 1686.25 / 1836.25 1170 / 1170 1240 / 1240 Output Total 2370 / 2370 1900 / 1900 1200 / 1200 Balance -683.75 / -533.75 -730 / -730 40 / 40 General: Alert, Oriented x3, Cooperative, Well developed, Well nourished HEENT: Atraumatic, PERRLA, EOMI, Normocephalic Oral: Moist Mucosa Neck: Supple, No JVD, Trachea Midline, Thyroid Normal Size and Texture Lungs: Clear to auscultation, Normal air movement, No rhonchi, No wheeze, No rales Cardiovascular: Regular rate, Regular Rhythm, Normal S1, Normal S2, No murmurs, PMI Normal, No rub noted, No Gallop Abdomen: Bowel Sounds Present, Soft, Non Tender, Non-Distended Extremities: No clubbing, No cyanosis, No edema, Capillary Refill Less than 3 Seconds Skin: No rashes Neurological: Cranial nerves II-XII grossly intact, Neuro grossly intact, Sensory exam intact to light touch and pain Psych/Mental Status: Normal Affect, Appropriate, Alert and oriented to time, place, person, mood and affect Current Medications Acetaminophen (Tylenol) 1,000 mg PO Q8 [facility] Last Admin: 10/30/19 14:22 Dose: 1,000 mg Documented by: Hydrocodone Bitart/Acetaminophen ([place] 5mg-325mg) 1 - 2 tablet PO Q6H PRN PRN PRN Reason: Pain Score 1-5/10 Aspirin (Ecotrin) 81 mg PO DAILY [facility] Last Admin: 10/30/19 08:22 Dose: 81 mg Documented by: Atenolol (Tenormin (Beta Zeina)) 25 mg PO DAILY [facility] Last Admin: 10/30/19 08:22 Dose: 25 mg Documented by: Atorvastatin Calcium (Lipitor) 80 mg PO QHS [facility] Last Admin: 10/29/19 21:58 Dose: 80 mg Documented by: Diazepam (Valium) 4 mg PO 4X/DAY PRN PRN PRN Reason: Muscle spasm left leg Last Admin: 10/30/19 11:03 Dose: 4 mg Documented by: Enoxaparin Sodium (Lovenox) 40 mg SC DAILY [facility] Last Admin: 10/30/19 08:22 Dose: 40 mg Documented by: Sodium Chloride () 250 mls @ 15 mls/hr IV .[id number] PRN PRN Reason: Saline Flush Melatonin (Melatonin) 3 mg PO QHS PRN PRN PRN Reason: INSOMNIA Nutritional Formula (Lactose Free) (Ensure Enlive) 120 ml PO 4X/DAY [facility] Last Admin: 10/30/19 14:22 Dose: 120 ml Documented by: Ondansetron HCl (Zofran) 4 mg IV Q8H PRN PRN PRN Reason: NAUSEA/VOMITING Oxycodone HCl (Oxyir) 5 - 10 mg PO Q4H PRN PRN PRN Reason: Pain Score 6-10/10 Last Admin: 10/30/19 15:42 Dose: 10 mg Documented by: Ramipril (Altace) 20 mg PO DAILY [facility] Last Admin: 10/30/19 08:22 Dose: 20 mg Documented by: Sodium Chloride () 10 - 40 ml IV UD PRN PRN Reason: SALINE FLUSH Last Admin: 10/28/19 20:10 Dose: 10 ml Documented by: Medical Necessity - Tobacco Use Smoking Status: Heavy Smoker (>10/day) Tobacco Use: Cigarettes Assessment/Plan All Active Problems (Last Reviewed 07/09/19 @ 15:57 by Isabela Harding) Closed left hip fracture (Acute) #1 angulated intertrochanteric fracture of the left hip-postop day 3 ORIF with gamma nail-continue PT and OT, at this time we are trying for placement in a long term facility for short-term rehab services #2 valvular heart disease-mitral and aortic insufficiency #3 hyperlipidemia #4 essential hypertension #5 coronary artery disease-stable at this time #6 chronic anxiety #7 medication reaction-confusion secondary to Flexeril and narcotic administration-resolved at this time #8 hypoxia-probably secondary to underlying COPD and or atelectasis, continue to try to wean oxygen, if we are unable to wean the oxygen by tomorrow, I will order a chest x-ray, I do not hear any signs of pneumonia or congestive heart failure on physical examination. I will place the patient on aerosol treatments and reevaluate tomorrow Code Visit Inpatient E&M: 17186 Subs Hosp L2
[2019-10-30] MEDS: Ipratropium/Albuterol Sulfate 3 ML AMPUL.NEB INHALATION (19:05)
[2019-10-30] MEDS: Atorvastatin Calcium 80 MG Tablet PO (21:00)
[2019-10-31] VITALS (16 sets, daily range): BP systolic 119–159; BP diastolic 71–88; PULSE 66–89; RESP 16–18; TEMP 36.6–37.7; O2SAT 87–98
[2019-10-31] MEDS: oxyCODONE 5 MG Tablet PO ×4 (02:51→20:58)
[2019-10-31] MEDS: Acetaminophen 500 MG Tablet 1000 MG PO ×3 (05:53→21:00)
[2019-10-31] MEDS: Ipratropium/Albuterol Sulfate 3 ML AMPUL.NEB INHALATION ×2 (06:37→19:56)
[2019-10-31] MEDS: Atenolol 25 MG Tablet PO (09:29)
[2019-10-31] MEDS: Aspirin E.C. 81 MG Tablet PO (09:29)
[2019-10-31] MEDS: Ramipril 10 MG Capsule 20 MG PO (09:30)
[2019-10-31] MEDS: Enoxaparin 40 MG/0.4 ML Syringe SC (09:31)
--- NOTE | 2019-10-31 09:43 | NURSING ---
This nurse informed Dr. George that bowels did not move despite having Mg Citrate and Ducolax yesterday, see EMAR. Dr. George ordered Mg Citrate and Ducolax again.
[2019-10-31] MEDS: Bisacodyl 5 MG Tablet 10 MG PO (12:55)
[2019-10-31] MEDS: Magnesium Citrate 300 ML PO (12:57)
[2019-10-31] MEDS: diazePAM 2 MG Tablet 4 MG PO ×2 (13:00→23:14)
--- NOTE | 2019-10-31 16:05 | NURSING ---
Pt c/o more pain today in her LT hip then yesterday. It just feels sore. This nurse touching Lt hip and to side of incision an top of incision, feels hard. This nurse informed Dr. George and he wanted H&H done. Pt also tired today and pale.
--- NOTE | 2019-10-31 16:30 | PCM.PROGNOTE ---
Patient Problems: Active and Suspected Problems (Last Reviewed 07/09/19 @ 15:57 by Isabela Harding) Closed left hip fracture (Acute) Subjective: Patient was seen and examined today, she was briefly off oxygen today and was able to maintain her saturation but then late in the afternoon she had to be placed back on 2 L due to an oxygen saturation of 87% on room air. Patient complained of pain in her left thigh area, I ordered an H&H this afternoon but it has not resulted yet. Patient has no complaints of any shortness of breath or chest pain at this time. - Physical Exam Vitals/I&O's: Vital Signs Temp Pulse Resp BP Pulse Ox 98.0 F 66 16 127/77 H 94 10/31/19 14:29 10/31/19 14:29 10/31/19 14:29 10/31/19 14:29 10/31/19 14:29 Oxygen Flow Rate (L/min) 2 Oxygen Delivery Method Room Air Weight: 63.6 kg Body Mass Index (BMI) 22.6 Intake and Output for Last 24 Hours 10/29/19 10/30/19 10/31/19 23:59 23:59 23:59 Intake Total 1170 / 1170 1860 / 1860 640 / 640 Output Total 1900 / 1900 1200 / 1200 350 / 350 Balance -730 / -730 660 / 660 290 / 290 General: Alert, Oriented x3, Cooperative, No apparent distress, Well developed HEENT: Atraumatic, PERRLA, EOMI, Normocephalic Oral: Moist Mucosa Neck: Supple, No JVD, Trachea Midline, Thyroid Normal Size and Texture Lungs: Clear to auscultation, Normal air movement, No rhonchi, No wheeze, No rales Cardiovascular: Regular rate, Regular Rhythm, Normal S1, Normal S2, PMI Normal, Murmur - 2/6 systolic murmur is noted at the left sternal border and apex, No rub noted Abdomen: Bowel Sounds Present, Soft, Non Tender, Non-Distended Extremities: No clubbing, No cyanosis, Capillary Refill Less than 3 Seconds Skin: No rashes Neurological: Cranial nerves II-XII grossly intact, Neuro grossly intact, Sensory exam intact to light touch and pain Psych/Mental Status: Normal Affect, Appropriate, Alert and oriented to time, place, person, mood and affect Current Medications Acetaminophen (Tylenol) 1,000 mg PO Q8 [facility] Last Admin: 10/31/19 14:24 Dose: 1,000 mg Documented by: Hydrocodone Bitart/Acetaminophen ([place] 5mg-325mg) 1 - 2 tablet PO Q6H PRN PRN PRN Reason: Pain Score 1-5/10 Albuterol/Ipratropium (Duoneb) 3 ml INHALATION Q6HWA.RT [facility] Last Admin: 10/31/19 13:18 Dose: Not Given Documented by: Aspirin (Ecotrin) 81 mg PO DAILY [facility] Last Admin: 10/31/19 09:29 Dose: 81 mg Documented by: Atenolol (Tenormin (Beta Zeina)) 25 mg PO DAILY [facility] Last Admin: 10/31/19 09:29 Dose: 25 mg Documented by: Atorvastatin Calcium (Lipitor) 80 mg PO QHS [facility] Last Admin: 10/30/19 21:00 Dose: 80 mg Documented by: Diazepam (Valium) 4 mg PO 4X/DAY PRN PRN PRN Reason: Muscle spasm left leg Last Admin: 10/31/19 13:00 Dose: 4 mg Documented by: Enoxaparin Sodium (Lovenox) 40 mg SC DAILY [facility] Last Admin: 10/31/19 09:31 Dose: 40 mg Documented by: Sodium Chloride () 250 mls @ 15 mls/hr IV .[id number] PRN PRN Reason: Saline Flush Melatonin (Melatonin) 3 mg PO QHS PRN PRN PRN Reason: INSOMNIA Nutritional Formula (Lactose Free) (Ensure Enlive) 120 ml PO 4X/DAY [facility] Last Admin: 10/31/19 14:25 Dose: 120 ml Documented by: Ondansetron HCl (Zofran) 4 mg IV Q8H PRN PRN PRN Reason: NAUSEA/VOMITING Oxycodone HCl (Oxyir) 5 - 10 mg PO Q4H PRN PRN PRN Reason: Pain Score 6-10/10 Last Admin: 10/31/19 09:36 Dose: 10 mg Documented by: Ramipril (Altace) 20 mg PO DAILY [facility] Last Admin: 10/31/19 09:30 Dose: 20 mg Documented by: Sodium Chloride () 10 - 40 ml IV UD PRN PRN Reason: SALINE FLUSH Last Admin: 10/28/19 20:10 Dose: 10 ml Documented by: Medical Necessity - Tobacco Use Smoking Status: Heavy Smoker (>10/day) Tobacco Use: Cigarettes Assessment/Plan All Active Problems (Last Reviewed 07/09/19 @ 15:57 by Isabela Harding) Closed left hip fracture (Acute) #1 angulated intertrochanteric fracture of the left hip-postop day 4 ORIF with gamma nail-continue PT and OT, at this time we are trying for placement in a retirement facility for short-term rehab services-we have not received approval yet from the patient's insurance carrier, this will more than likely happen next Sunday #2 valvular heart disease-mitral and aortic insufficiency #3 hyperlipidemia #4 essential hypertension #5 coronary artery disease-stable at this time #6 chronic anxiety #7 medication reaction-confusion secondary to Flexeril and narcotic administration-resolved at this time #8 hypoxia-probably secondary to underlying COPD and or atelectasis, continue to try to wean oxygen, I do not believe the patient needs a chest x-ray at this time #9 left thigh pain-perhaps secondary to hematoma of the left thigh, I talked with orthopedic surgery briefly yesterday and they felt that this was a possibility. I will get an H&H today Code Visit Inpatient E&M: 56043 Subs Hosp L2
--- NOTE | 2019-10-31 16:33 | CASEMGMT ---
Social Work GRACIELA spoke with Jannie in TCU. Jannie spoke with pt insurance who confirm they have received the referral but have not yet made a determination. GRACIELA updated pt that if precert comes in this afternoon pt can transfer to TCU tonight. If not pt will remain here until Sunday when we hear from insurance. SHANNAN Houser
[2019-10-31 16:37] LABS: Hematocrit 20.4 % (37-47); Hemoglobin 6.7 g/dL (12.0-15.0)
--- NOTE | 2019-10-31 16:58 | NURSING ---
This nurse aware of 6.7 Hemoglobin. Informed and educated pt. Will notify Dr. George.
--- NOTE | 2019-10-31 17:12 | NURSING ---
Dr. George aware of Hemoglobin of 6.7 and what it was. Order for Type and Cross and give 2 units and he would call Dr. Moura and make him aware.
--- NOTE | 2019-10-31 19:40 | NURSING ---
Blood bank called, Blood ready. Sharon BERNARD aware. Also aware that consent is needed.
[2019-10-31] MEDS: 0.9% Saline Lock 10 ML Syringe IV (20:12)
[2019-10-31] MEDS: Atorvastatin Calcium 80 MG Tablet PO (21:00)
[2019-11-01] VITALS (13 sets, daily range): BP systolic 131–151; BP diastolic 79–92; PULSE 63–79; RESP 16–20; TEMP 36.4–37.2; O2SAT 93–97
[2019-11-01] MEDS: MELATONIN 3 MG TABLET PO (00:51)
[2019-11-01] MEDS: oxyCODONE 5 MG Tablet PO ×5 (01:01→21:47)
[2019-11-01] MEDS: 0.9% Saline Lock 10 ML Syringe IV ×2 (02:52→16:37)
[2019-11-01] MEDS: Acetaminophen 500 MG Tablet 1000 MG PO ×3 (05:46→21:47)
[2019-11-01] MEDS: Ipratropium/Albuterol Sulfate 3 ML AMPUL.NEB INHALATION ×3 (06:42→20:08)
[2019-11-01 07:09] LABS: Hematocrit 27.9 % (37-47); Hemoglobin 9.1 g/dL (12.0-15.0)
--- NOTE | 2019-11-01 08:51 | RAD_ITS ---
STUDY: X-RAY - PELVIS AND LEFT HIP REASON FOR EXAM: Female, 59 years old. increasing pain s/p hip surgery 10-27-19 TECHNIQUE: 3 views of the pelvis and hip. COMPARISON: 10/25/2019 FINDINGS: Since the prior exam, patient has undergone postsurgical fixation of radius identified left femoral neck fracture. Hardware appears intact. No evidence of acute hardware failure. Expected postoperative soft tissue changes. Remainder is unchanged RAD/HIP, UNI W/ Pelvis 2-3 Views IMPRESSION: As above Electronically Signed: Humza Diego DO at 10:28 EST Tel , Service support ,
--- NOTE | 2019-11-01 08:53 | PCM.PN.BLA ---
Progress Note Received call last evening patient having thigh swelling. Concerns for tightness in the thigh. Patient denies numbness and tingling distally. She still concern for excessive pain. She is having difficulty with physical therapy. She is concerned it is not fixed right. Postop x-rays reviewed I shared the patient intraoperative x-rays look appropriate. I explained the patient the natural history of this disease process and that thigh pain and swelling can be a part of the process moving forward. Her thigh is supple with moderate swelling. No tightness. Neurovascular intact distally. I will reorder some x-rays today to reevaluate the fracture and fixation. She was encouraged to continue with therapy. Responded well to transfusion. Continue to monitor swelling and anemia. Please call orthopedics with any further issues. [facility] Office: [facility] Vital Signs/Narrative: Vital Signs Pulse Resp Pulse Ox 11/01/19 06:42 68 16 96
[2019-11-01] MEDS: Atenolol 25 MG Tablet PO (09:13)
[2019-11-01] MEDS: Ramipril 10 MG Capsule 20 MG PO (09:13)
[2019-11-01] MEDS: Aspirin E.C. 81 MG Tablet PO (09:13)
[2019-11-01] MEDS: Ferrous Gluconate 324 MG Tablet PO ×2 (09:18→16:37)
[2019-11-01] MEDS: diazePAM 2 MG Tablet 4 MG PO (09:21)
[2019-11-01] MEDS: Lactulose 20 GM/30 ML UDC 30 GM PO (10:49)
--- NOTE | 2019-11-01 11:38 | PN_ITS ---
Patient Problems: Active and Suspected Problems (Last Reviewed 07/09/19 @ 15:57 by Isabela Harding) Closed left hip fracture (Acute) Subjective: Patient was seen and examined today, she had an x-ray done of her left hip and pelvis which was read out as unremarkable other than the addition of recent hardware for her hip fracture. Patient's hemoglobin this morning is 9.1, she remains on low-flow oxygen at this time. Patient does not complain of any shortness of breath or chest discomfort - Physical Exam Vitals/I&O's: Vital Signs Temp Pulse Resp BP Pulse Ox 98.2 F 68 18 151/82 H 96 11/01/19 09:00 11/01/19 09:00 11/01/19 09:00 11/01/19 09:00 11/01/19 09:15 Oxygen Flow Rate (L/min) 2 Oxygen Delivery Method Nasal Cannula Weight: 63.6 kg Body Mass Index (BMI) 22.6 Intake and Output for Last 24 Hours 10/30/19 10/31/19 11/01/19 23:59 23:59 23:59 Intake Total 1860 / 1860 1280 / 1780 1000 / 1000 Output Total 1200 / 1200 350 / 350 400 / 400 Balance 660 / 660 930 / 1430 600 / 600 General: Alert, Oriented x3, Cooperative, No apparent distress, Well developed, Well nourished HEENT: Atraumatic, PERRLA, EOMI, Normocephalic Oral: Moist Mucosa Neck: Supple, No JVD, Trachea Midline, Thyroid Normal Size and Texture Lungs: Clear to auscultation, No rhonchi, No wheeze, No rales, Diminished Cardiovascular: Regular rate, Regular Rhythm, Normal S1, Normal S2, No murmurs, PMI Normal Abdomen: Bowel Sounds Present, Soft, Non Tender, Non-Distended Extremities: No clubbing, No cyanosis, Capillary Refill Less than 3 Seconds Skin: No rashes Neurological: Cranial nerves II-XII grossly intact, Neuro grossly intact, Sensory exam intact to light touch and pain, Coordination normal Psych/Mental Status: Normal Affect, Appropriate, Alert and oriented to time, place, person, mood and affect Laboratory Results 10/31/19 16:26: Hgb 6.7 L, Hct 20.4 L 10/31/19 17:45: Blood Type O POSITIVE, Antibody Screen NEGATIVE, Crossmatch See Detail 11/01/19 06:10: Hgb 9.1 L, Hct 27.9 L Current Medications Acetaminophen (Tylenol) 1,000 mg PO Q8 [facility] Last Admin: 11/01/19 05:46 Dose: 1,000 mg Documented by: Hydrocodone Bitart/Acetaminophen ([place] 5mg-325mg) 1 - 2 tablet PO Q6H PRN PRN PRN Reason: Pain Score 1-5/10 Albuterol/Ipratropium (Duoneb) 3 ml INHALATION Q6HWA.RT [facility] Last Admin: 11/01/19 06:42 Dose: 3 ml Documented by: Aspirin (Ecotrin) 81 mg PO DAILY [facility] Last Admin: 11/01/19 09:13 Dose: 81 mg Documented by: Atenolol (Tenormin (Beta Zeina)) 25 mg PO DAILY [facility] Last Admin: 11/01/19 09:13 Dose: 25 mg Documented by: Atorvastatin Calcium (Lipitor) 80 mg PO QHS [facility] Last Admin: 10/31/19 21:00 Dose: 80 mg Documented by: Diazepam (Valium) 4 mg PO 4X/DAY PRN PRN PRN Reason: Muscle spasm left leg Last Admin: 11/01/19 09:21 Dose: 4 mg Documented by: Ferrous Gluconate (Ferrous Gluconate) 324 mg PO BIDCM [facility] Last Admin: 11/01/19 09:18 Dose: 324 mg Documented by: Sodium Chloride () 250 mls @ 15 mls/hr IV .[id number] PRN PRN Reason: Saline Flush Melatonin (Melatonin) 3 mg PO QHS PRN PRN PRN Reason: INSOMNIA Last Admin: 11/01/19 00:51 Dose: 3 mg Documented by: Nutritional Formula (Lactose Free) (Ensure Enlive) 120 ml PO 4X/DAY [facility] Last Admin: 11/01/19 09:14 Dose: 120 ml Documented by: Ondansetron HCl (Zofran) 4 mg IV Q8H PRN PRN PRN Reason: NAUSEA/VOMITING Oxycodone HCl (Oxyir) 5 - 10 mg PO Q4H PRN PRN PRN Reason: Pain Score 6-10/10 Last Admin: 11/01/19 10:49 Dose: 10 mg Documented by: Ramipril (Altace) 20 mg PO DAILY [facility] Last Admin: 11/01/19 09:13 Dose: 20 mg Documented by: Sodium Chloride () 10 - 40 ml IV UD PRN PRN Reason: SALINE FLUSH Last Admin: 11/01/19 02:52 Dose: 10 ml Documented by: Medical Necessity - Tobacco Use Smoking Status: Heavy Smoker (>10/day) Tobacco Use: Cigarettes Assessment/Plan All Active Problems (Last Reviewed 07/09/19 @ 15:57 by Isabela Harding) Closed left hip fracture (Acute) #1 angulated intertrochanteric fracture of the left hip-postop day #5 ORIF with gamma nail-continue PT and OT, at this time we are trying for placement in a [facility]p facility for short-term rehab services-we have not received approval yet from the patient's insurance carrier, this will more than likely happen next Sunday #2 acute blood loss anemia secondary to expected blood loss from left hip fracture-again patient's hemoglobin today is 9.1, we will recheck her H&H tomorrow #3 valvular heart disease-mitral and aortic insufficiency #4 hyperlipidemia #5 essential hypertension #6 coronary artery disease-stable at this time #7 chronic anxiety #8 medication reaction-confusion secondary to Flexeril and narcotic administration-resolved at this time #9 hypoxia-probably secondary to underlying COPD and or atelectasis, continue to try to wean oxygen, I do not believe the patient needs a chest x-ray at this time #10 left thigh pain secondary to blood loss within the soft tissues of the left thigh from expected acute blood loss from left hip fracture Code Visit Inpatient E&M: 47232 Subs Hosp L2
[2019-11-01] MEDS: Atorvastatin Calcium 80 MG Tablet PO (21:47)
[2019-11-02] VITALS (7 sets, daily range): BP systolic 140–161; BP diastolic 82–92; PULSE 70–90; RESP 16–20; TEMP 36.8–37.3; O2SAT 93–96
[2019-11-02] MEDS: oxyCODONE 5 MG Tablet PO ×3 (05:56→18:14)
[2019-11-02] MEDS: Acetaminophen 500 MG Tablet 1000 MG PO ×3 (05:56→21:41)
[2019-11-02] MEDS: Ipratropium/Albuterol Sulfate 3 ML AMPUL.NEB INHALATION ×2 (07:00→19:00)
[2019-11-02 07:44] LABS: Hematocrit 29.1 % (37-47); Hemoglobin 9.3 g/dL (12.0-15.0)
[2019-11-02] MEDS: Ferrous Gluconate 324 MG Tablet PO ×2 (08:31→16:34)
[2019-11-02] MEDS: Ramipril 10 MG Capsule 20 MG PO (08:31)
[2019-11-02] MEDS: Atenolol 25 MG Tablet PO (08:32)
[2019-11-02] MEDS: Aspirin E.C. 81 MG Tablet PO (08:32)
--- NOTE | 2019-11-02 13:56 | PN_ITS ---
Patient Problems: Active and Suspected Problems (Last Reviewed 07/09/19 @ 15:57 by Isabela Harding) Closed left hip fracture (Acute) Subjective: Patient was seen and examined today, she stated to this examiner she did not know what her discharge plan was going to be, I told her again that we are waiting on approval from her insurance company for her to go to a fdc facility. Patient is not on oxygen at this time and does not appear in distress, she does not complain of any shortness of breath or chest discomfort. Objective: General: Alert, Oriented x3, Cooperative, No apparent distress, Well developed, Well nourished HEENT: Atraumatic, PERRLA, EOMI, Normocephalic Oral: Moist Mucosa Neck: Supple, No JVD, Trachea Midline, Thyroid Normal Size and Texture Lungs: Clear to auscultation, No rhonchi, No wheeze, No rales, Diminished Cardiovascular: Regular rate, Regular Rhythm, Normal S1, Normal S2, No murmurs, PMI Normal Abdomen: Bowel Sounds Present, Soft, Non Tender, Non-Distended Extremities: No clubbing, No cyanosis, Capillary Refill Less than 3 Seconds Skin: No rashes Neurological: Cranial nerves II-XII grossly intact, Neuro grossly intact, Sensory exam intact to light touch and pain, Coordination normal Psych/Mental Status: Normal Affect, Appropriate, Alert and oriented to time, place, person, mood and affect - Physical Exam Vitals/I&O's: Vital Signs Temp Pulse Resp BP Pulse Ox 98.2 F 80 18 140/82 H 95 11/02/19 08:09 11/02/19 08:09 11/02/19 08:09 11/02/19 08:09 11/02/19 08:20 Oxygen Flow Rate (L/min) 2 Oxygen Delivery Method Room Air Weight: 63.6 kg Body Mass Index (BMI) 22.6 Intake and Output for Last 24 Hours 10/31/19 11/01/19 11/02/19 23:59 23:59 23:59 Intake Total 1280 / 1780 1240 / 1240 Output Total 350 / 350 1000 / 1000 Balance 930 / 1430 240 / 240 Laboratory Results 11/02/19 06:03: Hgb 9.3 L, Hct 29.1 L Current Medications Acetaminophen (Tylenol) 1,000 mg PO Q8 [facility] Last Admin: 03/01/20 05:56 Dose: 1,000 mg Documented by: Hydrocodone Bitart/Acetaminophen ([place] 5mg-325mg) 1 - 2 tablet PO Q6H PRN PRN PRN Reason: Pain Score 1-5/10 Albuterol/Ipratropium (Duoneb) 3 ml INHALATION Q6HWA.RT [facility] Last Admin: 11/02/19 13:00 Dose: Not Given Documented by: Aspirin (Ecotrin) 81 mg PO DAILY [facility] Last Admin: 11/02/19 08:32 Dose: 81 mg Documented by: Atenolol (Tenormin (Beta Zeina)) 25 mg PO DAILY [facility] Last Admin: 11/02/19 08:32 Dose: 25 mg Documented by: Atorvastatin Calcium (Lipitor) 80 mg PO QHS [facility] Last Admin: 11/01/19 21:47 Dose: 80 mg Documented by: Diazepam (Valium) 4 mg PO 4X/DAY PRN PRN PRN Reason: Muscle spasm left leg Last Admin: 11/01/19 09:21 Dose: 4 mg Documented by: Ferrous Gluconate (Ferrous Gluconate) 324 mg PO BIDCM [facility] Last Admin: 11/02/19 08:31 Dose: 324 mg Documented by: Sodium Chloride () 250 mls @ 15 mls/hr IV .[id number] PRN PRN Reason: Saline Flush Melatonin (Melatonin) 3 mg PO QHS PRN PRN PRN Reason: INSOMNIA Last Admin: 11/01/19 00:51 Dose: 3 mg Documented by: Nutritional Formula (Lactose Free) (Ensure Enlive) 120 ml PO 4X/DAY [facility] Last Admin: 11/02/19 08:35 Dose: Not Given Documented by: Ondansetron HCl (Zofran) 4 mg IV Q8H PRN PRN PRN Reason: NAUSEA/VOMITING Oxycodone HCl (Oxyir) 5 - 10 mg PO Q4H PRN PRN PRN Reason: Pain Score 6-10/10 Last Admin: 11/02/19 10:39 Dose: 10 mg Documented by: Ramipril (Altace) 20 mg PO DAILY [facility] Last Admin: 11/02/19 08:31 Dose: 20 mg Documented by: Sodium Chloride () 10 - 40 ml IV UD PRN PRN Reason: SALINE FLUSH Last Admin: 11/01/19 16:37 Dose: 10 ml Documented by: Medical Necessity - Tobacco Use Smoking Status: Heavy Smoker (>10/day) Tobacco Use: Cigarettes Assessment/Plan All Active Problems (Last Reviewed 07/09/19 @ 15:57 by Isabela Harding) Closed left hip fracture (Acute) #1 angulated intertrochanteric fracture of the left hip-postop day #6 ORIF with gamma nail-continue PT and OT, at this time we are trying for placement in a fdc facility for short-term rehab services-we have not received approval yet from the patient's insurance carrier, this will more than likely happen next Sunday #2 acute blood loss anemia secondary to expected blood loss from left hip fracture-again patient's hemoglobin today is 9.3 #3 valvular heart disease-mitral and aortic insufficiency #4 hyperlipidemia #5 essential hypertension #6 coronary artery disease-stable at this time #7 chronic anxiety #8 medication reaction-confusion secondary to Flexeril and narcotic administration-resolved at this time #9 hypoxia-probably secondary to underlying COPD and or atelectasis, patient is now on room air #10 left thigh pain secondary to blood loss within the soft tissues of the left thigh from expected acute blood loss from left hip fracture Code Visit Inpatient E&M: 00176 Subs Hosp L2
--- NOTE | 2019-11-02 17:13 | NURSING ---
This nurse was reading the progress report from Dr. Moura that was written on 10/30/19. Patients came up from behind this nurse to read the progress note but then as this nurse was closing it stated, Don't close that yet, I wanna take a picture of it. Pt had his flip phone out. This nurse explained that this nurse could not allow him to take a picture of medical information but could get a copy if patient signed for medical records to release information to pt and/or . At first was upset but then calmed down and said, That's okay, I''ll let my daughter handle it tomorrow. This nurse offered patient to sign the medical records release form and she did not want to.
[2019-11-02] MEDS: Atorvastatin Calcium 80 MG Tablet PO (21:42)
[2019-11-03 03:42] VITALS: BP 159/95; PULSE 69; RESP 16; TEMP 37; O2SAT 95
[2019-11-03] MEDS: Acetaminophen 500 MG Tablet 1000 MG PO ×3 (06:19→21:42)
[2019-11-03] MEDS: oxyCODONE 5 MG Tablet PO ×4 (06:19→19:24)
[2019-11-03 06:51] VITALS: PULSE 71; RESP 18; O2SAT 97
[2019-11-03] MEDS: Ipratropium/Albuterol Sulfate 3 ML AMPUL.NEB INHALATION ×2 (06:51→19:40)
[2019-11-03 08:40] VITALS: BP 160/88; PULSE 75; RESP 18; TEMP 36.8; O2SAT 98
[2019-11-03] MEDS: Ramipril 10 MG Capsule 20 MG PO (08:40)
[2019-11-03] MEDS: Atenolol 25 MG Tablet PO (08:40)
[2019-11-03] MEDS: Aspirin E.C. 81 MG Tablet PO (08:40)
[2019-11-03] MEDS: Ferrous Gluconate 324 MG Tablet PO ×2 (08:40→17:51)
--- NOTE | 2019-11-03 12:59 | CASEMGMT ---
Social Work Note SW spoke with Jannie in TCU. Jannie states she will be calling pt's insurance again today in regards to pre-cert. Plan: TCU pending pre-cert [employer], [employer]
[2019-11-03 15:27] VITALS: BP 130/87; PULSE 65; RESP 18; TEMP 36.7; O2SAT 97
--- NOTE | 2019-11-03 17:19 | PCM.PROGNOTE ---
Patient Problems: Active and Suspected Problems (Last Reviewed 07/09/19 @ 15:57 by Isabela Harding) Closed left hip fracture (Acute) Subjective: Patient was seen and examined today, she is on room air, she does not complain of any shortness of breath or chest pain. - Physical Exam Vitals/I&O's: Vital Signs Temp Pulse Resp BP Pulse Ox 98.1 F 65 18 130/87 H 97 11/03/19 15:27 11/03/19 15:27 11/03/19 15:27 11/03/19 15:27 11/03/19 15:27 Oxygen Flow Rate (L/min) 2 Oxygen Delivery Method Room Air Weight: 63.6 kg Body Mass Index (BMI) 22.6 Intake and Output for Last 24 Hours 11/01/19 11/02/19 11/03/19 23:59 23:59 23:59 Intake Total 1240 / 1240 640 / 640 600 / 600 Output Total 1000 / 1000 1200 / 1200 600 / 600 Balance 240 / 240 -560 / -560 0 / 0 General: Alert, Oriented x3, Cooperative, No apparent distress, Well developed HEENT: Atraumatic, PERRLA, EOMI, Normocephalic Oral: Moist Mucosa Neck: Supple, No JVD, Trachea Midline, Thyroid Normal Size and Texture Lungs: Clear to auscultation, Normal air movement, No rhonchi, No wheeze, No rales Cardiovascular: Regular rate, Regular Rhythm, Normal S1, Normal S2, PMI Normal, Murmur - 2/6 systolic murmur is noted at the apex and left sternal border, No rub noted, No Gallop Abdomen: Bowel Sounds Present, Soft, Non Tender, Non-Distended Extremities: No clubbing, No cyanosis, Capillary Refill Less than 3 Seconds Skin: No rashes Neurological: Cranial nerves II-XII grossly intact, Neuro grossly intact, Sensory exam intact to light touch and pain, Coordination normal Psych/Mental Status: Normal Affect, Appropriate, Alert and oriented to time, place, person, mood and affect Current Medications Acetaminophen (Tylenol) 1,000 mg PO Q8 BERNA Last Admin: 11/03/19 13:15 Dose: 1,000 mg Documented by: Hydrocodone Bitart/Acetaminophen ([place] 5mg-325mg) 1 - 2 tablet PO Q6H PRN PRN PRN Reason: Pain Score 1-5/10 Albuterol/Ipratropium (Duoneb) 3 ml INHALATION Q6HWA.RT [facility] Last Admin: 11/03/19 13:33 Dose: Not Given Documented by: Aspirin (Ecotrin) 81 mg PO DAILY [facility] Last Admin: 11/03/19 08:40 Dose: 81 mg Documented by: Atenolol (Tenormin (Beta Zeina)) 25 mg PO DAILY [facility] Last Admin: 11/03/19 08:40 Dose: 25 mg Documented by: Atorvastatin Calcium (Lipitor) 80 mg PO QHS [facility] Last Admin: 11/02/19 21:42 Dose: 80 mg Documented by: Diazepam (Valium) 4 mg PO 4X/DAY PRN PRN PRN Reason: Muscle spasm left leg Last Admin: 11/01/19 09:21 Dose: 4 mg Documented by: Ferrous Gluconate (Ferrous Gluconate) 324 mg PO BIDCM [facility] Last Admin: 11/03/19 08:40 Dose: 324 mg Documented by: Sodium Chloride () 250 mls @ 15 mls/hr IV .[id number] PRN PRN Reason: Saline Flush Melatonin (Melatonin) 3 mg PO QHS PRN PRN PRN Reason: INSOMNIA Last Admin: 11/01/19 00:51 Dose: 3 mg Documented by: Nutritional Formula (Lactose Free) (Ensure Enlive) 120 ml PO 4X/DAY [facility] Last Admin: 11/03/19 15:09 Dose: Not Given Documented by: Ondansetron HCl (Zofran) 4 mg IV Q8H PRN PRN PRN Reason: NAUSEA/VOMITING Oxycodone HCl (Oxyir) 5 - 10 mg PO Q4H PRN PRN PRN Reason: Pain Score 6-10/10 Last Admin: 11/03/19 15:08 Dose: 10 mg Documented by: Ramipril (Altace) 20 mg PO DAILY [facility] Last Admin: 11/03/19 08:40 Dose: 20 mg Documented by: Sodium Chloride () 10 - 40 ml IV UD PRN PRN Reason: SALINE FLUSH Last Admin: 11/01/19 16:37 Dose: 10 ml Documented by: Medical Necessity - Tobacco Use Smoking Status: Heavy Smoker (>10/day) Tobacco Use: Cigarettes Assessment/Plan All Active Problems (Last Reviewed 07/09/19 @ 15:57 by Isabela Harding) Closed left hip fracture (Acute) #1 angulated intertrochanteric fracture of the left hip-postop day #7 ORIF with gamma nail-continue PT and OT, at this time we are trying for placement in a jail facility for short-term rehab services-we have not received approval yet from the patient's insurance carrier #2 acute blood loss anemia secondary to expected blood loss from left hip fracture #3 valvular heart disease-mitral and aortic insufficiency #4 hyperlipidemia #5 essential hypertension #6 coronary artery disease-stable at this time #7 chronic anxiety #8 hypoxia-probably secondary to underlying COPD and or atelectasis, patient is now on room air #9 left thigh pain secondary to blood loss within the soft tissues of the left thigh from expected acute blood loss from left hip fracture Code Visit Inpatient E&M: 22496 Subs Hosp L2
--- NOTE | 2019-11-03 17:40 | NURSING ---
ensure D/C due to pt refusing to drink.
[2019-11-03 19:40] VITALS: PULSE 71; RESP 18
[2019-11-03] MEDS: Atorvastatin Calcium 80 MG Tablet PO (21:42)
[2019-11-03 21:54] VITALS: BP 157/84; PULSE 67; RESP 16; TEMP 36.6; O2SAT 93
[2019-11-04 03:00] VITALS: BP 153/91; PULSE 66; RESP 16; TEMP 36.5; O2SAT 93
[2019-11-04] MEDS: Acetaminophen 500 MG Tablet 1000 MG PO (07:01)
[2019-11-04 09:03] VITALS: BP 135/86; PULSE 77; RESP 18; TEMP 36.7; O2SAT 97
[2019-11-04] MEDS: Ramipril 10 MG Capsule 20 MG PO (09:17)
[2019-11-04] MEDS: Ferrous Gluconate 324 MG Tablet PO (09:17)
[2019-11-04] MEDS: oxyCODONE 5 MG Tablet PO (09:17)
[2019-11-04] MEDS: Aspirin E.C. 81 MG Tablet PO (09:17)
[2019-11-04] MEDS: Atenolol 25 MG Tablet PO (09:17)
--- NOTE | 2019-11-04 09:25 | CASEMGMT ---
Social Work Note SW received message from Jannie in TCU stating pre-cert was obtained. SW updated pt, pt states understanding. Physician updated. Plan: TCU today Falguni Knight IMAGE ARCHIVIST, WELLNESS PROGRAM MANAGER
--- NOTE | 2019-11-04 09:40 | PCM.TXEXTCAR ---
- Diet 10/27/19 23:21 Diet: Cardiac/Low Cholesterol Is pt able to select menu?: Yes - Routine Orders/Code Status Routine Lab Work: CBC - in one week - Wound(s) LT HIP Wound Type: Surgical Incision upper hip incision Wound Type: Surgical Incision - Therapies Weight Bearing: Non weight bearing Physical Therapy: Eval and Treat Occupational Therapy: Eval and Treat - Problem/Diagnosis (1) Hematoma of left lower extremity Status: Acute Comment: due to blood loss from hip fracture while on aspirin and plavix-required PRBC's Current Visit: Yes (2) COPD (chronic obstructive pulmonary disease) Status: Chronic Comment: suspected Current Visit: Yes (3) Anxiety Status: Chronic Current Visit: No (4) Closed left hip fracture Status: Acute Comment: S/P ORIF left hip with Gamma nail 10/27/19 Current Visit: Yes (5) Pure hypercholesterolemia Status: Chronic Current Visit: No (6) Essential (primary) hypertension Status: Chronic Current Visit: No (7) History of coronary artery stent placement Status: Chronic Comment: PCI/stent to LCX 03/11/08 Current Visit: No (8) Atherosclerosis of [place] coronary artery of [place] heart without angina pectoris Status: Chronic Comment: Stenting to LCX in March 2008; Current Visit: No (9) Acute blood loss anemia Status: Acute Comment: Due to left hip fracture Current Visit: Yes - Allergies/Procedures Done in Hospital Allergies/Adverse Reactions: Allergies codeine Allergy (Intermediate, Verified 10/25/19 15:57) nausea and vomiting Procedures: Blood transfusion, - - ORIF left hip with Gamma nail 10/27/19 - Type of Care/Length of Stay Estimated LOS: Convalescent Care Less Than 30 days Type of Care Needed: Skilled Rehab Potential: Good Prognosis: Good - Additional Orders/Day of Discharge Additional Orders: See Dr. Moura in 10 days H&P will serve as current which was dated: 10/25/19 Day of Discharge: 11/04/19 - Dietary and Speech Recommendations Dietitian Recommendations/Changes: Rec continue Cardiac/Cholesterol and ONS Ensure Enlive at [facility]. - Follow Up Care Primary Care Physician: Cora Nguyễn MD [Primary Care Provider] -
--- NOTE | 2019-11-04 11:00 | NURSING ---
Report called to Екатерина BERNARD in TCU.
--- NOTE | 2019-11-06 17:16 | PCM.DC.SUM ---
Discharge Date and Diagnosis - Problem List Patient Problems: Active and Suspected Problems (Last Reviewed 07/09/19 @ 15:57 by Isabela Harding) Debility (Acute) Urinary retention (Acute) Encephalopathy (Acute) Date of Admission: 10/25/19 Date of Discharge: 11/04/19 - Primary Discharge Diagnosis Active and Suspected Problems (Last Reviewed 07/09/19 @ 15:57 by Isabela Harding) #1 angulated intertrochanteric fracture of the left hip #2 acute blood loss anemia secondary to expected blood loss from left hip fracture #3 valvular heart disease-mitral and aortic insufficiency #4 hyperlipidemia #5 essential hypertension #6 coronary artery disease #7 chronic anxiety #8 hypoxia-probably secondary to underlying COPD and or atelectasis #9 Hematoma of the left thigh secondary to left hip fracture - Secondary Discharge Diagnosis Chronic Problems (Last Reviewed 07/09/19 @ 15:57 by Isabela Harding) Anxiety (Chronic) COPD (chronic obstructive pulmonary disease) (Chronic) suspected Iron deficiency anemia (Chronic) Coronary artery disease (Chronic) Hypertension (Chronic) Hyperlipidemia (Chronic) Tobacco abuse (Chronic) Nicotine dependence, cigarettes, uncomplicated (Chronic) Nonrheumatic mitral (valve) insufficiency (Chronic) Nonrheumatic aortic (valve) insufficiency (Chronic) Pure hypercholesterolemia (Chronic) Essential (primary) hypertension (Chronic) History of coronary artery stent placement (Chronic ~03/11/08) PCI/stent to LCX 03/11/08 Atherosclerosis of [place] coronary artery of [place] heart without angina pectoris (Chronic) Stenting to LCX in March 2008; Hospital Course and Treatment Operations: - - ORIF left hip fracture Procedures: Blood transfusion Summary of Care Provided: The patient is a 59 year old F seen in the emergency room at [facility] after sustaining a mechanical fall and injuring her left hip. X-rays done in the emergency room showed a left intertrochanteric fracture. Patient was admitted to [place] [id number] and seen in consultation by orthopedic surgery, on 10/27/2019, patient underwent ORIF of the left hip fracture with gamma nail. Postop the patient had trouble weaning from oxygen, it was felt that this was secondary to atelectasis and underlying COPD. It was also noted that the patient's blood count declined and she complained of left thigh pain-it was felt that the patient had blood loss inside the left thigh from her hip fracture-probably secondary to taking aspirin and Plavix as an outpatient. She underwent transfusion of 2 units of packed red blood cells. Patient was seen by PT and OT postop, it was felt that she would benefit from a short inpatient stay in a nursing home facility for physical therapy. On 11/04/2019, patient was seen and examined: On examination she appeared in good health and spirits. Vital signs as documented. Skin warm and dry and without overt rashes. Neck without JVD. Lungs clear. Heart exam notable for regular rhythm, normal sounds and absence of murmurs, rubs or gallops. Abdomen unremarkable and without evidence of organomegaly, masses, or abdominal aortic enlargement. Extremities nonedematous. Neuro: Cranial nerves II through XII are grossly intact, no focal motor deficits were noted, sensation to light touch and pinprick is intact. Psych: Patient is alert and oriented x3, she does not appear anxious or depressed On 11/04/2019, patient was discharged to TCU in stable condition for inpatient rehab. Patient Problems: Active and Suspected Problems (Last Reviewed 07/09/19 @ 15:57 by Isabela Harding) Debility (Acute) Urinary retention (Acute) Encephalopathy (Acute) - Physical Exam Vitals/I&O's: Vital Signs Temp Pulse Resp BP Pulse Ox 98.0 F 77 18 135/86 H 97 11/04/19 09:03 11/04/19 09:03 11/04/19 09:03 11/04/19 09:03 11/04/19 09:03 Oxygen Flow Rate (L/min) 2 Oxygen Delivery Method Room Air Weight: 63.6 kg Body Mass Index (BMI) 22.6 Intake and Output for Last 24 Hours 11/04/19 11/05/19 11/06/19 23:59 23:59 23:59 Intake Total 600 / 600 Output Total 600 / 600 Balance 0 / 0 Home Medications: Medications to take at Discharge aspirin 81 mg tablet,delayed release 81 mg PO DAILY 07/09/19 ferrous gluconate 270 mg (27 mg iron) tablet 270 mg PO BID tab 07/09/19 Acetaminophen [Tylenol] 650 mg PO 4X/DAY PRN PRN #1 tab 11/04/19 Atenolol [Tenormin (beta tom)] 25 mg PO DAILY 11/04/19 Atorvastatin Calcium 80 mg PO QHS 11/04/19 Clopidogrel Bisulfate [Clopidogrel] 75 mg PO DAILY 11/04/19 Hydrocodone Bitart/Apap 5-325 [[place] 5/325] 1 - 2 tab PO Q6H PRN PRN 7 Days #30 tab 11/04/19 Ramipril 20 mg PO DAILY 11/04/19 Following Prescrptions Were Given to Patient: Hydrocodone Bitart/Apap 5-325 [[place] 5/325] 1 - 2 tab PO Q6H PRN PRN 7 Days #30 tab PRN Reason: Pain Score 1-5/10 Prescription Printed Acetaminophen [Tylenol] 650 mg PO 4X/DAY PRN PRN #1 tab PRN Reason: Pain Score 1-5/10 Primary Care Physician: Cora Nguyễn MD [Primary Care Provider] - Disposition: Snf facility Minutes spent on discharge:: 33 Patient Condition:: Stable Medical Necessity - Tobacco Use Smoking Status: Heavy Smoker (>10/day) Tobacco Use: Cigarettes Meaningful Use Info Meaningful Use Diagnoses (Choose all that apply): None applicable Inpatient E&M: [id number] [facility]
== END 2019-11-04 11:35 | disposition skilled nursing facility (03) | DRG 481 ==
LOC: ED 18:47 → MS3 19:13
PROVIDERS: Internal Medicine; Orthopaedic Surgery; Admitting Provider Family Medicine; Emergency Provider Emergency Medicine; PCP Internal Medicine; Visit Provider Internal Medicine
PROC: 0QS706Z Reposition Left Upper Femur with Intramedullary Internal Fixation Device, Open Approach (ICD-10-PCS; CPT 27245; principal; 2019-10-27 14:45)
DX: S72.142A Displaced intertrochanteric fracture of left femur, initial encounter for closed fracture (principal); D62 Acute posthemorrhagic anemia; J98.11 Atelectasis; W01.0XXA Fall on same level from slipping, tripping and stumbling without subsequent striking against object, initial encounter; Y93.K1 Activity, walking an animal; I25.10 Atherosclerotic heart disease of native coronary artery without angina pectoris; E78.5 Hyperlipidemia, unspecified; F17.210 Nicotine dependence, cigarettes, uncomplicated; E87.6 Hypokalemia; I10 Essential (primary) hypertension; R41.0 Disorientation, unspecified; T48.1X5A Adverse effect of skeletal muscle relaxants [neuromuscular blocking agents], initial encounter; T40.2X5A Adverse effect of other opioids, initial encounter; R09.02 Hypoxemia; F41.9 Anxiety disorder, unspecified; Z79.82 Long term (current) use of aspirin; Z79.02 Long term (current) use of antithrombotics/antiplatelets; Z95.5 Presence of coronary angioplasty implant and graft; I34.0 Nonrheumatic mitral (valve) insufficiency; I35.1 Nonrheumatic aortic (valve) insufficiency; J44.9 Chronic obstructive pulmonary disease, unspecified; S70.12XA Contusion of left thigh, initial encounter
CPT/HCPCS: 36415; 71045; 73502; 76000; 80048; 80053; 85014; 85018; 85025; 85610; 85730; 86850; 86900; 86901; 86920; 86922; 93005; 94640; 97110; 97116; 97163; 97167; 97530; 97535; 99251; 99285; C1713; J7030; J7040; J7120; P9016; A4216; G0463; J2405

== ENCOUNTER 2019-11-04 11:45 | Inpatient (IN) | payer BC, SELFPAY ==
[2019-10-27 12:15] VITALS: BMI 22.6
[2019-11-04 12:04] VITALS: BP 167/90; PULSE 58; RESP 18; TEMP 36.9; O2SAT 96
[2019-11-04 12:15] VITALS: BMI 19.7
[2019-11-04 12:20] VITALS: BMI 19.7
[2019-11-04] MEDS: HYDROcodone Bitartrate/Apap 5/325 Tablet PO (15:01)
[2019-11-04] MEDS: Ferrous Gluconate 324 MG Tablet PO (17:30)
[2019-11-04 17:33] VITALS: BP 150/76; PULSE 71
[2019-11-04] MEDS: Atorvastatin Calcium 80 MG Tablet PO (20:34)
--- NOTE | 2019-11-04 20:48 | HP.PCM_ITS ---
Problem List (1) Debility Status: Acute (2) Iron deficiency anemia Status: Chronic (3) Urinary retention Status: Acute (4) Encephalopathy Status: Acute (5) Coronary artery disease Status: Chronic (6) Hypertension Status: Chronic (7) Hyperlipidemia Status: Chronic (8) Tobacco abuse Status: Chronic (9) Anxiety Status: Chronic (10) Closed left hip fracture Status: Acute Comment: S/P ORIF left hip with Gamma nail 10/27/19 History of Present Illness Date of Admission: 11/04/19 Chief Complaint: Here for rehabilitation, strengthening, prior to discharge home with . The patient is a 59 year old Female with below past medical history presented to [facility] Emergency Department 10/25/2019 with fall, left hip injury. 10/25/2019 Chest X-ray negative. 10/25/2019 X-ray pelvis, left hip showed left hip fracture. Walking dog, fell on left hip. Fentanyl 50MG given en route. Multiple doses of Dilaudid given for pain. Valium given for spasms. Potassium 3.2. 10/25/2019 Admit to Hospital. IV pain control. PT/OT. Hold aspirin, prepare for surgery. 10/26/2019 Benitez catheter for urinary retention. Oxycodone, morphine as needed for pain. 10/27/2019 Dr. Moura performed ORIF left hip. 10/27/2019 PT/OT for Assisted Facility. 10/28/2019 Stop Flexeril, caused confusion. 10/30/2019 Hypoxia secondary to COPD/Atelectasis. Wean oxygen. Aerosol treatments. 10/31/2019 Confusion from narcotic pain medication resolved. Left thigh pain secondary to left thigh hematoma. 10/31/2019 Transfused 2 units PRBC with good response. 11/04/2019 Admit to TCU with debility, here for rehabilitation, strengthening, prior to discharge home with . Past Medical History Past Medical History (Chronic Problems): Chronic Problems (Last Reviewed 07/09/19 @ 15:57 by Isabela Harding) Anxiety (Chronic) COPD (chronic obstructive pulmonary disease) (Chronic) suspected Iron deficiency anemia (Chronic) Coronary artery disease (Chronic) Hypertension (Chronic) Hyperlipidemia (Chronic) Tobacco abuse (Chronic) Nicotine dependence, cigarettes, uncomplicated (Chronic) Nonrheumatic mitral (valve) insufficiency (Chronic) Nonrheumatic aortic (valve) insufficiency (Chronic) Pure hypercholesterolemia (Chronic) Essential (primary) hypertension (Chronic) History of coronary artery stent placement (Chronic ~03/11/08) PCI/stent to LCX 03/11/08 Atherosclerosis of [place] coronary artery of [place] heart without angina pectoris (Chronic) Stenting to LCX in March 2008; Medical History: Medical History (Last Reviewed 07/09/19 @ 15:57 by Isabela Harding) Nonrheumatic mitral (valve) insufficiency (Chronic) I34.0 Nonrheumatic aortic (valve) insufficiency (Chronic) I35.1 Pure hypercholesterolemia (Chronic) E78.00 Essential (primary) hypertension (Chronic) I10 Atherosclerosis of [place] coronary artery of [place] heart without angina pectoris (Chronic) I25.10 Stenting to LCX in March 2008; Allergies codeine Allergy (Intermediate, Verified 10/25/19 15:57) nausea and vomiting Home Medications: Ambulatory Orders Medication Instructions Recorded aspirin 81 mg tablet,delayed 81 mg PO DAILY 07/09/19 release ferrous gluconate 270 mg (27 mg 270 mg PO BID tab 07/09/19 iron) tablet Acetaminophen [Tylenol] 650 mg PO 4X/DAY PRN PRN #1 tab 11/04/19 Atenolol [Tenormin (beta zeina)] 25 mg PO DAILY 11/04/19 Atorvastatin Calcium 80 mg PO QHS 11/04/19 Clopidogrel Bisulfate [Clopidogrel] 75 mg PO DAILY 11/04/19 Hydrocodone Bitart/Apap 5-325 1 - 2 tab PO Q6H PRN PRN 7 Days 11/04/19 [[place] 5/325] #30 tab Ramipril 20 mg PO DAILY 11/04/19 Surgical History: Surgical History (Last Reviewed 07/09/19 @ 15:57 by Isabela Harding) History of coronary artery stent placement (Chronic) Onset Date: ~03/11/08 Z95.5 PCI/stent to LCX 03/11/08 History of hysterectomy Z90.710 History of open reduction and internal fixation (ORIF) procedure Z98.890 right side of neck for pinched nerve History of shoulder surgery Z98.890 right ligament repair History of tonsillectomy Z90.89 Surgical History: angioplasty - Cardiac stent., hysterectomy, tonsillectomy, - - ORIF neck, Right shoulder surgery. 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 Lives: Spouse/ Significant Other Smoking Status: Heavy Smoker (>10/day) Tobacco Use: Cigarettes Alcohol: None Drugs: None - *Family History Maternal Family History: Family History (Last Reviewed 07/09/19 @ 15:57 by Isabela Harding) Father Myocardial infarction Mother Myocardial infarction Brother CAD (coronary artery disease) Hypertension Sister Hypertension History Items: No pertinent history Paternal Family History: Family History (Last Reviewed 07/09/19 @ 15:57 by Isabela Harding) Father Myocardial infarction Mother Myocardial infarction Brother CAD (coronary artery disease) Hypertension Sister Hypertension History Items: No pertinent history Review of Systems Constitutional: Denies: Chills, Fever, Weight Change HEENT: Denies: Head Aches, Sinus Congestion, Sinus Drainage Cardiovascular: Denies: Chest Pain, Palpitations Respiratory: Denies: Cough, Shortness of breath at rest, Sputum production Gastrointestinal: Denies: Abdominal Pain, Nausea, Vomiting Genitourinary: Denies: Dysuria Musculoskeletal: Denies: Joint Pain, Joint Tenderness Skin: Denies: Rash, Wounds Neurological: Denies: Numbness, Tingling, Focal weakness Psychiatric: Denies: Anxiety, Depression, Homicidal Ideations, Suicidal Ideations Hematologic/ Lymphatic: Denies: Easy Bruising, Easy Bleeding VTE Information - Inpt Only VTE Present on Admission: No VTE Mechan Device Prophylaxis: Knee High BRIJESH Hose VTE Pharm Prophylaxis ordered?: No Reason prophylaxis not ordered:: Treatment Not Indicated Patient Problems: Active and Suspected Problems (Last Reviewed 07/09/19 @ 15:57 by Isabela Harding) Debility (Acute) Urinary retention (Acute) Encephalopathy (Acute) - Physical Exam Vitals/I&O's: Vital Signs Temp Pulse Resp BP Pulse Ox 98.5 F 71 18 150/76 H 96 11/04/19 12:04 11/04/19 17:33 11/04/19 12:04 11/04/19 17:33 11/04/19 12:04 Oxygen Delivery Method Room Air Weight: 57.153 kg Body Mass Index (BMI) 19.7 Intake and Output for Last 24 Hours 11/02/19 11/03/19 11/04/19 23:59 23:59 23:59 Intake Total 480 / 480 Balance 480 / 480 General: Alert, Oriented x3, Cooperative HEENT: Atraumatic, PERRLA, EOMI, Normocephalic Neck: Supple, No JVD, Negative Carotid Bruits Lungs: Clear to auscultation, Normal air movement Cardiovascular: Regular rate, No murmurs Abdomen: Bowel Sounds Present, Soft, Non Tender Extremities: No edema, Capillary Refill Less than 3 Seconds Skin: No rashes, No breakdown Musculoskeletal: No Tenderness to Palpation of Joints or Extremities Neurological: Cranial nerves II-XII grossly intact Psych/Mental Status: Normal Affect, Appropriate Current Medications Acetaminophen (Tylenol) 650 mg PO 4X/DAY PRN PRN PRN Reason: Pain Score 1-10 Hydrocodone Bitart/Acetaminophen ([place] 5mg-325mg) 1 - 2 tablet PO Q6H PRN PRN PRN Reason: Pain Score 1-06/12 Last Admin: 11/04/19 15:01 Dose: 2 tablet Documented by: Aspirin (Ecotrin) 81 mg PO DAILY@0800 [facility] Atenolol (Tenormin (Beta Zeina)) 25 mg PO DAILY [facility] Atorvastatin Calcium (Lipitor) 80 mg PO QHS [facility] Last Admin: 11/04/19 20:34 Dose: 80 mg Documented by: Clopidogrel Bisulfate (Plavix) 75 mg PO DAILY [facility] Ferrous Gluconate (Ferrous Gluconate) 324 mg PO BIDCM [facility] Last Admin: 11/04/19 17:30 Dose: 324 mg Documented by: Nutritional Formula (Lactose Free) (Ensure Enlive) 120 ml PO 4X/DAY [facility] Last Admin: 11/04/19 20:35 Dose: Not Given Documented by: Ramipril (Altace) 20 mg PO DAILY [facility] Tuberculin PPD (Tubersol, Aplisol, Ppd) 5 tu ID X1 ONE Stop: 11/05/19 10:01 Tuberculin PPD (Tubersol, Aplisol, Ppd) 5 tu ID X1 ONE Stop: 11/12/19 10:01 Assessment/Plan All Active Problems (Last Reviewed 07/09/19 @ 15:57 by Isabela Harding) Closed left hip fracture (Acute) Hematoma of left lower extremity (Acute) Acute blood loss anemia (Acute) Debility (Acute) Urinary retention (Acute) Encephalopathy (Acute) 59 year old female with below past medical history hospitalized for left hip fracture, underwent ORIF 10/27/[address] Moura, postoperative course complicated by acute blood loss anemia requiring transfusion, narcotic induced encephalopathy, hypoxia secondary to COPD/Atelectasis, admitted to TCU with debility, here for rehabilitation, strengthening, prior to discharge home with . * Debility - PT/OT. * Pain - Tylenol 1000MG QID, Tramadol 50MG Q6H PRN pain (1-4), Oxycodone 5MG Q4H PRN pain (5-10). * Bowel - Miralax 17GM daily, Senna/colace 2 tablets BID, Dulcolax 10MG daily PRN. * Adult immunization - Administer Prevnar 13, Pneumovax 23, Fluzone as appropriate. * DVT prophylaxis - Hold, already on dual antiplatelet therapy. * Coronary Artery Disease status stent - Atenolol 25MG daily, Ramipril 20MG heidy y, Plavix 75MG daily, Aspirin 81MG daily. * Hyperlipidemia - High intensity Atorvastatin 80MG QHS. * Nutrition - Ensure 120ML 4x/day. * Iron deficiency anemia - Ferrous Gluconate 324MG BID.
[2019-11-04] MEDS: oxyCODONE 5 MG Tablet PO (21:41)
[2019-11-04] MEDS: Acetaminophen 500 MG Tablet 1000 MG PO (21:41)
[2019-11-05] MEDS: Acetaminophen 500 MG Tablet 1000 MG PO ×4 (05:34→22:01)
[2019-11-05] MEDS: Clopidogrel Bisulfate 75 MG Tablet PO (05:35)
[2019-11-05] MEDS: Ramipril 10 MG Capsule 20 MG PO (05:35)
[2019-11-05] MEDS: Atenolol 25 MG Tablet PO (05:35)
[2019-11-05 05:40] LABS: Absolute Lymphocyte Count 1.17 X10^3/uL (0.83-4.51); Absolute Neutrophil Count 4.4 X10^3/uL (2.0-7.7); Basophil# 0.03 X10^3/uL; Basophil% 0.4 % (0-1); Eosinophil# 0.39 X10^3/uL; Eosinophils% 5.7 % (0-5); Hematocrit 31.4 % (37-47); Hemoglobin 10.1 g/dL (12.0-15.0); Lymphocyte # 1.17 X10^3/ul (4.0); Lymphocyte % 17.1 % (19-41); Mean Corp Hgb Conc 32.2 g/dL (32-36); Mean Corpuscular Hgb 29.6 pg (27.0-32.0); Mean Corpuscular Volume 92.1 fL (81-99); Mean Platelet Vol. 9.3 fl (6.2-12.0); Monocyte# 0.82 X10^3/uL; NRBC Flagged by Analyzer 0 % (0-5); Neutrophil # 4.39 X10^3/uL (2.7-7.7); Neutrophil % 64.2 % (47-70); Platelet Count 454 K/mm3 (150-450); RBC Distribution Width CV 15.3 % (11.6-14.6); RBC Distribution Width SD 48.6 fl (35.1-43.9); Red Blood Count 3.41 M/mm3 (4.2-5.4); White Blood Count 6.8 K/mm3 (4.4-11.0)
[2019-11-05 05:59] LABS: BUN 12 mg/dL (7-18); Creatinine, Serum 0.42 mg/dL (0.55-1.02); Estimated Creatinine Clearance 126.91 ml/min; Glucose 97 mg/dL (74-106)
[2019-11-05 06:00] LABS: Anion Gap 6 (5-15); BUN/Creat Ratio 28.3 RATIO (10-20); Calcium,Total 8.7 mg/dL (8.5-10.1); Chloride 110 mmol/L (98-107); EST Glomerular Filtration Rate 161 mL/min (>60); Est Glom Filt Rate - Afr Amer 195 mL/min (>60); Potassium 3.6 mmol/L (3.5-5.1); Sodium Level 142 mmol/L (136-145)
[2019-11-05] MEDS: Aspirin E.C. 81 MG Tablet PO (08:13)
[2019-11-05] MEDS: Ferrous Gluconate 324 MG Tablet PO ×2 (08:13→17:51)
[2019-11-05 10:00] VITALS: PULSE 61; RESP 14; O2SAT 98
[2019-11-05] MEDS: oxyCODONE 5 MG Tablet PO (11:00)
[2019-11-05] MEDS: Tuberculin,Purif.prot.deriv. 50 TU/ML Vial 5 ML ID (11:01)
[2019-11-05] MEDS: traMADol 50 MG Tablet PO (12:51)
[2019-11-05 13:52] VITALS: BP 125/66; PULSE 69; RESP 18; TEMP 37.2; O2SAT 97
--- NOTE | 2019-11-05 13:53 | NURSING ---
Spoke with Dr. Thomas's office. Per Dr. Thomas pt is to be 50% weight bearing to left leg for four weeks. Order repeated back, will add order.
--- NOTE | 2019-11-05 17:03 | CASEMGMT ---
Social Work Reviewed and agreed with social work dietetic intern documentation on this date. Anjelica Girard, VEHICLE DAMAGE APPRAISER COMPRESSED AIR PILE DRIVER OPERATOR
[2019-11-05] MEDS: Atorvastatin Calcium 80 MG Tablet PO (22:01)
[2019-11-06] MEDS: Acetaminophen 500 MG Tablet 1000 MG PO ×4 (05:44→23:14)
[2019-11-06] MEDS: Atenolol 25 MG Tablet PO (05:44)
[2019-11-06] MEDS: Ramipril 10 MG Capsule 20 MG PO (05:44)
[2019-11-06] MEDS: Clopidogrel Bisulfate 75 MG Tablet PO (05:44)
[2019-11-06] MEDS: Escitalopram Oxalate 10 MG Tablet PO (05:44)
[2019-11-06] MEDS: Aspirin E.C. 81 MG Tablet PO (07:54)
[2019-11-06] MEDS: Ferrous Gluconate 324 MG Tablet PO ×2 (07:54→18:03)
[2019-11-06] MEDS: traMADol 50 MG Tablet PO (07:58)
[2019-11-06] MEDS: oxyCODONE 5 MG Tablet PO ×2 (11:24→23:18)
[2019-11-06 15:14] VITALS: BP 141/73; PULSE 58; RESP 16; TEMP 36.9; O2SAT 99
[2019-11-06] MEDS: Atorvastatin Calcium 80 MG Tablet PO (23:14)
[2019-11-07] MEDS: Clopidogrel Bisulfate 75 MG Tablet PO (06:06)
[2019-11-07] MEDS: Ramipril 10 MG Capsule 20 MG PO (06:06)
[2019-11-07] MEDS: Atenolol 25 MG Tablet PO (06:06)
[2019-11-07] MEDS: Escitalopram Oxalate 10 MG Tablet PO (06:06)
[2019-11-07] MEDS: Acetaminophen 500 MG Tablet 1000 MG PO ×4 (06:07→23:44)
--- NOTE | 2019-11-07 07:01 | NURSING ---
20 kwame removed from left hip, incisions x3, no redness, no drainage, DSD applied to middle incision incase of drainage. Slight swelling noted
[2019-11-07] MEDS: Aspirin E.C. 81 MG Tablet PO (08:40)
[2019-11-07] MEDS: oxyCODONE 5 MG Tablet PO ×2 (11:24→21:34)
[2019-11-07 14:20] VITALS: BP 144/75; PULSE 64; RESP 14; TEMP 36.2; O2SAT 97
[2019-11-07] MEDS: Atorvastatin Calcium 80 MG Tablet PO (21:30)
[2019-11-08] MEDS: Atenolol 25 MG Tablet PO (06:01)
[2019-11-08] MEDS: Escitalopram Oxalate 10 MG Tablet PO (06:01)
[2019-11-08] MEDS: Clopidogrel Bisulfate 75 MG Tablet PO (06:01)
[2019-11-08] MEDS: Ramipril 10 MG Capsule 20 MG PO (06:01)
[2019-11-08] MEDS: oxyCODONE 5 MG Tablet PO ×2 (06:02→16:41)
[2019-11-08] MEDS: Acetaminophen 500 MG Tablet 1000 MG PO ×4 (06:08→23:45)
[2019-11-08] MEDS: Aspirin E.C. 81 MG Tablet PO (08:26)
[2019-11-08] MEDS: Ferrous Gluconate 324 MG Tablet PO ×2 (08:26→16:08)
[2019-11-08] MEDS: traMADol 50 MG Tablet PO (08:28)
[2019-11-08 13:53] VITALS: BP 140/61; PULSE 57; RESP 14; TEMP 37.1; O2SAT 98
[2019-11-08] MEDS: Atorvastatin Calcium 80 MG Tablet PO (22:18)
[2019-11-09] MEDS: oxyCODONE 5 MG Tablet PO ×4 (00:51→20:32)
[2019-11-09] MEDS: Clopidogrel Bisulfate 75 MG Tablet PO (06:11)
[2019-11-09] MEDS: Escitalopram Oxalate 10 MG Tablet PO (06:11)
[2019-11-09] MEDS: Atenolol 25 MG Tablet PO (06:11)
[2019-11-09] MEDS: Ramipril 10 MG Capsule 20 MG PO (06:12)
[2019-11-09] MEDS: Polyethylene Glycol 3350 17 GM PACKET PO (06:12)
[2019-11-09] MEDS: traMADol 50 MG Tablet PO (06:54)
[2019-11-09] MEDS: Acetaminophen 500 MG Tablet 1000 MG PO ×3 (07:20→21:54)
[2019-11-09] MEDS: Ferrous Gluconate 324 MG Tablet PO ×2 (07:53→16:26)
[2019-11-09] MEDS: Aspirin E.C. 81 MG Tablet PO (07:53)
[2019-11-09 13:16] VITALS: BP 136/69; PULSE 59; RESP 16; TEMP 36.9; O2SAT 98
[2019-11-09] MEDS: Atorvastatin Calcium 80 MG Tablet PO (21:54)
[2019-11-10] MEDS: oxyCODONE 5 MG Tablet PO ×4 (02:27→20:59)
[2019-11-10 05:55] VITALS: BP 153/80; PULSE 61
[2019-11-10] MEDS: Clopidogrel Bisulfate 75 MG Tablet PO (05:57)
[2019-11-10] MEDS: Polyethylene Glycol 3350 17 GM PACKET PO (05:57)
[2019-11-10] MEDS: Atenolol 25 MG Tablet PO (05:58)
[2019-11-10] MEDS: Escitalopram Oxalate 10 MG Tablet PO (05:58)
[2019-11-10] MEDS: Ramipril 10 MG Capsule 20 MG PO (05:58)
[2019-11-10] MEDS: Acetaminophen 500 MG Tablet 1000 MG PO ×4 (05:58→22:06)
[2019-11-10] MEDS: Ferrous Gluconate 324 MG Tablet PO (08:06)
[2019-11-10] MEDS: Aspirin E.C. 81 MG Tablet PO (08:06)
--- NOTE | 2019-11-10 12:07 | PHA.CONS_ITS ---
<Kanwal Bryan M - Last Filed: 11/10/19 12:07> Progress Note - Pharmacy Subjective: [] Objective: Allergies codeine Allergy (Intermediate, Verified 10/25/19 15:57) nausea and vomiting Current Medications Generic Name Dose Route Start Last Admin Trade Name Freq PRN Reason Stop Dose Admin Acetaminophen 1,000 mg 11/04/19 22:00 11/10/19 10:51 Tylenol PO 1,000 mg 4X/DAY BERNA Administration Aspirin 81 mg 11/05/19 08:00 11/10/19 08:06 Ecotrin PO 81 mg DAILY@0800 BERNA Administration Atenolol 25 mg 11/05/19 06:00 11/10/19 05:58 Tenormin (Beta Zeina) PO 25 mg DAILY [facility] Administration Atorvastatin Calcium 80 mg 11/04/19 22:00 11/09/19 21:54 Lipitor PO 80 mg QHS [facility] Administration Bisacodyl 10 mg 11/04/19 21:06 Dulcolax PO DAILY PRN Constipation Clopidogrel Bisulfate 75 mg 11/05/19 06:00 11/10/19 05:57 Plavix PO 75 mg DAILY BERNA Administration Escitalopram Oxalate 10 mg 11/06/19 06:00 11/10/19 05:58 Lexapro PO 10 mg DAILY [facility] Administration Ferrous Gluconate 324 mg 11/04/19 17:00 11/10/19 08:06 Ferrous Gluconate PO 324 mg BIDCM [facility] Administration Oxycodone HCl 5 mg 11/04/19 21:05 11/10/19 08:08 Oxyir PO 5 mg Q4H PRN PRN Administration Pain Score 4-10/10 Polyethylene Glycol 17 gm 11/05/19 06:00 11/10/19 05:57 Miralax PO 17 gm DAILY [facility] Administration Ramipril 20 mg 11/05/19 06:00 11/10/19 05:58 Altace PO 20 mg DAILY [facility] Administration Senna/Docusate Sodium 2 tablet 11/05/19 17:11 Senokot-S, Naty-Colace PO BID PRN Constipation Tramadol HCl 50 mg 11/04/19 21:04 11/09/19 06:54 Ultram PO 50 mg Q6H PRN PRN Administration Pain Score 1-3/10 Tuberculin PPD 5 tu 11/12/19 10:00 Tubersol, Aplisol, Ppd ID 03/11/20 10:01 X1 ONE Problem List (Last Reviewed 07/09/19 @ 15:57 by Isabela Harding) Debility (Acute) Iron deficiency anemia (Chronic) Urinary retention (Acute) Encephalopathy (Acute) Coronary artery disease (Chronic) Hypertension (Chronic) Hyperlipidemia (Chronic) Tobacco abuse (Chronic) Vital Signs Temp Pulse Resp BP Pulse Ox 98.5 F 61 16 153/80 H 98 11/09/19 13:16 11/10/19 05:55 11/09/19 13:16 11/10/19 05:55 11/09/19 13:16 Oxygen Delivery Method Room Air Weight: 57.153 kg Body Mass Index (BMI) 19.7 Sodium 142 mmol/L (136-145) 11/05/19 05:25 Potassium 3.6 mmol/L (3.5-5.1) 11/05/19 05:25 Chloride 110 mmol/L (98-107) H 11/05/19 05:25 Carbon Dioxide 26.0 mmol/L (21.0-32.0) 11/05/19 05:25 Anion Gap 6 (5-15) 11/05/19 05:25 BUN 12 mg/dL (7-18) 11/05/19 05:25 Creatinine 0.42 mg/dL (0.55-1.02) L 11/05/19 05:25 Est GFR (MDRD) Af Amer 195 mL/min (>60) 11/05/19 05:25 Est GFR (MDRD) Non-Af 161 mL/min (>60) 11/05/19 05:25 BUN/Creatinine Ratio 28.3 RATIO (10-20) H 11/05/19 05:25 Glucose 97 mg/dL (74-106) 11/05/19 05:25 Assessment/Plan: 1. Pain: Tylenol 1,000mg PO 4x daily, Tramadol 50mg PO Q6h PRN Pain 1-3/10, Oxycodone 5mg PO Q4h PRN Pain 4-10/10. Please continue to monitor for increased/decreased pain, PRN medication usage. 2. CAD: Aspirin 81mg PO Daily, Plavix 75mg PO Daily, Lipitor 80mg PO HS, Atenolol 25mg PO Daily, Ramipril 20mg PO Daily. Please continue to monitor BP, pulse, electrolytes, renal function, S/S bleeding/bruising. 3. Iron Deficiency: Ferrous Gluconate 324mg PO BID. Please continue to monitor, obtain iron studies as clinically indicated. Psychotropic Medications: *4. Depression: Lexapro 10mg PO Daily. Please consider a GDR by 05/2020 if clinically appropriate. Unnecessary Medications: None Bowel Regimen: Miralax 17g PO Daily, Bisacodyl 10mg PO Daily PRN, Senna/Docusate 2 tab PO BID PRN. Please continue to monitor PRN medication use, as well as increased/decreased constipation and/or diarrhea. Date of Note:: 11/10/19 - Provider Comments Provider responsibility: Provider responsible to enter orders to implement recommendations <Denis Medina Chi - Last Filed: 11/10/19 17:20> Progress Note - Pharmacy Subjective: [] Objective: Allergies codeine Allergy (Intermediate, Verified 10/25/19 15:57) nausea and vomiting Current Medications Generic Name Dose Route Start Last Admin Trade Name Freq PRN Reason Stop Dose Admin Acetaminophen 1,000 mg 11/04/19 22:00 11/10/19 16:55 Tylenol PO 1,000 mg 4X/DAY BERNA Administration Aspirin 81 mg 11/05/19 08:00 11/10/19 08:06 Ecotrin PO 81 mg DAILY@0800 BERNA Administration Atenolol 25 mg 11/05/19 06:00 11/10/19 05:58 Tenormin (Beta Zeina) PO 25 mg DAILY BERNA Administration Atorvastatin Calcium 80 mg 11/04/19 22:00 11/09/19 21:54 Lipitor PO 80 mg QHS BERNA Administration Bisacodyl 10 mg 11/04/19 21:06 Dulcolax PO DAILY PRN Constipation Clopidogrel Bisulfate 75 mg 11/05/19 06:00 11/10/19 05:57 Plavix PO 75 mg DAILY BERNA Administration Escitalopram Oxalate 10 mg 11/06/19 06:00 11/10/19 05:58 Lexapro PO 10 mg DAILY BERNA Administration Ferrous Gluconate 324 mg 11/04/19 17:00 11/10/19 16:55 Ferrous Gluconate PO Not Given BIDCM [facility] Oxycodone HCl 5 mg 11/04/19 21:05 11/10/19 16:55 Oxyir PO 5 mg Q4H PRN PRN Administration Pain Score 4-1010 Polyethylene Glycol 17 gm 11/05/19 06:00 11/10/19 05:57 Miralax PO 17 gm DAILY BERNA Administration Ramipril 20 mg 11/05/19 06:00 11/10/19 05:58 Altace PO 20 mg DAILY BERNA Administration Senna/Docusate Sodium 2 tablet 11/05/19 17:11 Senokot-S, Naty-Colace PO BID PRN Constipation Tramadol HCl 50 mg 11/04/19 21:04 11/09/19 06:54 Ultram PO 50 mg Q6H PRN PRN Administration Pain Score 1-10 Tuberculin PPD 5 tu 11/12/19 10:00 Tubersol, Aplisol, Ppd ID 11/12/19 10:01 X1 ONE Problem List (Last Reviewed 07/09/19 @ 15:57 by Isabela Harding) Debility (Acute) Iron deficiency anemia (Chronic) Urinary retention (Acute) Encephalopathy (Acute) Coronary artery disease (Chronic) Hypertension (Chronic) Hyperlipidemia (Chronic) Tobacco abuse (Chronic) Vital Signs Temp Pulse Resp BP Pulse Ox 98.8 F 62 20 H 143/76 H 96 11/10/19 14:04 11/10/19 14:04 11/10/19 14:04 11/10/19 14:04 11/10/19 14:04 Oxygen Delivery Method Room Air Weight: 57.153 kg Body Mass Index (BMI) 19.7 Sodium 142 mmol/L (136-145) 11/05/19 05:25 Potassium 3.6 mmol/L (3.5-5.1) 11/05/19 05:25 Chloride 110 mmol/L (98-107) H 11/05/19 05:25 Carbon Dioxide 26.0 mmol/L (21.0-32.0) 11/05/19 05:25 Anion Gap 6 (5-15) 11/05/19 05:25 BUN 12 mg/dL (7-18) 11/05/19 05:25 Creatinine 0.42 mg/dL (0.55-1.02) L 11/05/19 05:25 Est GFR (MDRD) Af Amer 195 mL/min (>60) 11/05/19 05:25 Est GFR (MDRD) Non-Af 161 mL/min (>60) 11/05/19 05:25 BUN/Creatinine Ratio 28.3 RATIO (10-20) H 11/05/19 05:25 Glucose 97 mg/dL (74-106) 11/05/19 05:25 Assessment/Plan: Psychotropic Medications: Unnecessary Medications: Bowel Regimen: - Provider Comments Provider responsibility: Provider responsible to enter orders to implement recommendations Provider Comments to Recommendations by Pharmacy: Agree
[2019-11-10 14:04] VITALS: BP 143/76; PULSE 62; RESP 20; TEMP 37.1; O2SAT 96
[2019-11-10] MEDS: Atorvastatin Calcium 80 MG Tablet PO (20:59)
[2019-11-11] MEDS: Ramipril 10 MG Capsule 20 MG PO (06:03)
[2019-11-11] MEDS: Atenolol 25 MG Tablet PO (06:03)
[2019-11-11] MEDS: Acetaminophen 500 MG Tablet 1000 MG PO ×4 (06:03→22:17)
[2019-11-11] MEDS: Polyethylene Glycol 3350 17 GM PACKET PO (06:03)
[2019-11-11] MEDS: Clopidogrel Bisulfate 75 MG Tablet PO (06:04)
[2019-11-11] MEDS: Escitalopram Oxalate 10 MG Tablet PO (06:04)
[2019-11-11] MEDS: Aspirin E.C. 81 MG Tablet PO (07:59)
[2019-11-11] MEDS: oxyCODONE 5 MG Tablet PO ×2 (08:01→15:18)
--- NOTE | 2019-11-11 12:01 | CASEMGMT ---
Social Work Spoke with patient about DC plans. Have not heard from insurance update 11/06. Pt ready to DC home 11/15. Will await outcome from insurance if they set DC sooner. Pt would like outpatient PT/OT at [facility] and a FWW through [facility] [place]. Will make referrals once DC date is set. Will continue to follow. Anjelica Girard, STEPH SAMPLING THEORY TEACHER
[2019-11-11] MEDS: traMADol 50 MG Tablet PO (13:08)
[2019-11-11 14:05] VITALS: BP 136/70; PULSE 51; RESP 16; TEMP 36.6; O2SAT 98
[2019-11-11] MEDS: Ferrous Gluconate 324 MG Tablet PO (16:49)
[2019-11-11] MEDS: Atorvastatin Calcium 80 MG Tablet PO (21:07)
[2019-11-12 05:59] LABS: Absolute Lymphocyte Count 1.25 X10^3/uL (0.83-4.51); Absolute Neutrophil Count 3.1 X10^3/uL (2.0-7.7); Basophil# 0.07 X10^3/uL; Basophil% 1.4 % (0-1); Eosinophil# 0.23 X10^3/uL; Eosinophils% 4.4 % (0-5); Hematocrit 37.1 % (37-47); Hemoglobin 11.6 g/dL (12.0-15.0); Lymphocyte # 1.25 X10^3/ul (4.0); Lymphocyte % 24.1 % (19-41); Mean Corp Hgb Conc 31.3 g/dL (32-36); Mean Corpuscular Hgb 30.3 pg (27.0-32.0); Mean Corpuscular Volume 96.9 fL (81-99); Mean Platelet Vol. 9.6 fl (6.2-12.0); Monocyte# 0.55 X10^3/uL; Monocyte% 10.6 % (0-10); NRBC Flagged by Analyzer 0 % (0-5); Neutrophil # 3.05 X10^3/uL (2.7-7.7); Neutrophil % 58.9 % (47-70); Platelet Count 509 K/mm3 (150-450); RBC Distribution Width CV 15.9 % (11.6-14.6); RBC Distribution Width SD 55.8 fl (35.1-43.9); Red Blood Count 3.83 M/mm3 (4.2-5.4); White Blood Count 5.2 K/mm3 (4.4-11.0)
[2019-11-12] MEDS: Ramipril 10 MG Capsule 20 MG PO (05:59)
[2019-11-12] MEDS: Escitalopram Oxalate 10 MG Tablet PO (05:59)
[2019-11-12] MEDS: Atenolol 25 MG Tablet PO (05:59)
[2019-11-12] MEDS: Clopidogrel Bisulfate 75 MG Tablet PO (05:59)
[2019-11-12] MEDS: Polyethylene Glycol 3350 17 GM PACKET PO (06:01)
[2019-11-12] MEDS: Acetaminophen 500 MG Tablet 1000 MG PO ×4 (06:04→22:18)
[2019-11-12 06:34] LABS: Anion Gap 2 (5-15); BUN 10 mg/dL (7-18); BUN/Creat Ratio 17.2 RATIO (10-20); Calcium,Total 9.8 mg/dL (8.5-10.1); Chloride 110 mmol/L (98-107); Creatinine, Serum 0.58 mg/dL (0.55-1.02); EST Glomerular Filtration Rate 112 mL/min (>60); Est Glom Filt Rate - Afr Amer 135 mL/min (>60); Estimated Creatinine Clearance 91.22 ml/min; Glucose 91 mg/dL (74-106); Potassium 4.4 mmol/L (3.5-5.1); Sodium Level 144 mmol/L (136-145)
[2019-11-12] MEDS: Ferrous Gluconate 324 MG Tablet PO ×2 (08:22→17:38)
[2019-11-12] MEDS: Aspirin E.C. 81 MG Tablet PO (08:22)
[2019-11-12] MEDS: oxyCODONE 5 MG Tablet PO ×2 (08:26→20:59)
--- NOTE | 2019-11-12 11:08 | CASEMGMT ---
Social Work IDT met with patient for care plan meeting. Discussed patient's progress in therapy. Pt is mod I for all ADLs, adli in room, completed 4 steps CGA, walked 180 ft with FWW. Patient ready to DC home 11/15 pending insurance outcome if issued LCD sooner. Pt will go to [facility] outpatient PT/OT and receive a FWW. Will continue to follow for final DC date. STEPH McdonaldW
[2019-11-12 14:17] VITALS: BP 144/74; PULSE 56; RESP 18; TEMP 36.8; O2SAT 99
[2019-11-12] MEDS: Atorvastatin Calcium 80 MG Tablet PO (21:04)
[2019-11-13] MEDS: Clopidogrel Bisulfate 75 MG Tablet PO (05:49)
[2019-11-13] MEDS: Atenolol 25 MG Tablet PO (05:49)
[2019-11-13] MEDS: Ramipril 10 MG Capsule 20 MG PO (05:49)
[2019-11-13] MEDS: Escitalopram Oxalate 10 MG Tablet PO (05:49)
[2019-11-13] MEDS: Acetaminophen 500 MG Tablet 1000 MG PO ×4 (06:06→22:20)
[2019-11-13] MEDS: Ferrous Gluconate 324 MG Tablet PO (08:02)
[2019-11-13] MEDS: Aspirin E.C. 81 MG Tablet PO (08:02)
[2019-11-13] MEDS: oxyCODONE 5 MG Tablet PO ×2 (08:10→19:59)
--- NOTE | 2019-11-13 08:24 | MDS.RN ---
Information for the mds was obtained from review of the clinical record, interview of resident, staff, and direct observation of resident's care.
[2019-11-13 14:09] VITALS: BP 139/70; PULSE 56; RESP 18; TEMP 36.8; O2SAT 98
--- NOTE | 2019-11-13 15:47 | DCINST_ITS ---
- Discharge Diagnoses Current Active Problems: Current Active and Chronic Problems (Last Reviewed 07/09/19 @ 15:57 by Isabela Harding) Debility (Acute) Iron deficiency anemia (Chronic) Urinary retention (Acute) Encephalopathy (Acute) Coronary artery disease (Chronic) Hypertension (Chronic) Hyperlipidemia (Chronic) Tobacco abuse (Chronic) You will use the following diet at home:: No restrictions, Regular Your food should be the consistency of: Regular Your liquids should be the consistency of: Regular/Thin Discharge Activity: Return to Normal Activity, May Shower, Use Walker Weight Bearing Status: Weight bearing as tolerated Call your doctor if you observe: Fever of 101 or Higher, Inability to urinate, Inability to have a bowel movement, Shortness of breath, Chest pain, Uncontrolled pain Allergies/Adverse Reactions: Allergies codeine Allergy (Intermediate, Verified 10/25/19 15:57) nausea and vomiting Medications to take at Discharge aspirin 81 mg tablet,delayed release 81 mg PO DAILY 07/09/19 ferrous gluconate 270 mg (27 mg iron) tablet 270 mg PO BID tab 07/09/19 Atenolol [Tenormin (beta tom)] 25 mg PO DAILY 11/04/19 Atorvastatin Calcium 80 mg PO QHS 11/04/19 Clopidogrel Bisulfate [Clopidogrel] 75 mg PO DAILY 11/04/19 Ramipril 20 mg PO DAILY 11/04/19 Acetaminophen [Tylenol] 1,000 mg PO 4X/DAY tablet 11/13/19 Escitalopram Oxalate [Lexapro] 10 mg PO DAILY #30 tab 11/13/19 Oxycodone [Oxyir] 5 mg PO Q4H PRN PRN 7 Days #42 tablet 11/13/19 Polyethylene Glycol 3350 [Miralax] 17 gm PO DAILY #30 packet 11/13/19 Senna/Docusate Sodium [Senokot-S] 2 tab PO BID PRN #120 tab 11/13/19 traMADol [Ultram] 50 mg PO Q6H PRN PRN 7 Days #42 tablet 11/13/19 The following prescriptions were given: Escitalopram Oxalate [Lexapro] 10 mg PO DAILY #30 tab Transmission Status: Pending to [facility] [place] Polyethylene Glycol 3350 [Miralax] 17 gm PO DAILY #30 packet Transmission Status: Pending to [facility] [place] Oxycodone [Oxyir] 5 mg PO Q4H PRN PRN 7 Days #42 tablet PRN Reason: Pain Score 4-10/10 Transmission Status: Sent to [facility] [place] Senna/Docusate Sodium [Senokot-S] 2 tab PO BID PRN #120 tab PRN Reason: Constipation Transmission Status: Pending to [facility] [place] traMADol [Ultram] 50 mg PO Q6H PRN PRN 7 Days #42 tablet PRN Reason: Pain Score 1-3/10 Transmission Status: Sent to [facility] [place] Primary Care Physician: Cora Nguyễn MD [Primary Care Provider] - Please follow up with your Primary Care Physician in: 1 week. Test Results: Test results from this visit will be discussed in further detail at your follow- up appointment, if applicable. Please Follow Up With: Brayan Moura DO When: Sunday Please Follow Up With: Cora Nguyễn MD Proposed Discharge Date: 11/16/19
--- NOTE | 2019-11-13 15:49 | PCM.DC.SUM ---
Discharge Date and Diagnosis - Problem List Patient Problems: Active and Suspected Problems (Last Reviewed 07/09/19 @ 15:57 by Isabela Harding) Debility (Acute) Urinary retention (Acute) Encephalopathy (Acute) Date of Admission: 10/25/19 Date of Discharge: 11/16/19 - Primary Discharge Diagnosis Active and Suspected Problems (Last Reviewed 07/09/19 @ 15:57 by Isabela Harding) Debility (Acute) Urinary retention (Acute) Encephalopathy (Acute) - Secondary Discharge Diagnosis Chronic Problems (Last Reviewed 07/09/19 @ 15:57 by Isabela Harding) Anxiety (Chronic) COPD (chronic obstructive pulmonary disease) (Chronic) suspected Iron deficiency anemia (Chronic) Coronary artery disease (Chronic) Hypertension (Chronic) Hyperlipidemia (Chronic) Tobacco abuse (Chronic) Nicotine dependence, cigarettes, uncomplicated (Chronic) Nonrheumatic mitral (valve) insufficiency (Chronic) Nonrheumatic aortic (valve) insufficiency (Chronic) Pure hypercholesterolemia (Chronic) Essential (primary) hypertension (Chronic) History of coronary artery stent placement (Chronic ~03/11/08) PCI/stent to LCX 03/11/08 Atherosclerosis of telida coronary artery of telida heart without angina pectoris (Chronic) Stenting to LCX in March 2008; Hospital Course and Treatment Imaging Results: 11/04/19 12:14 Diet: Cardiac/Low Cholesterol Food consistency:: Regular Liquid Consistency:: Regular/Thin Is pt able to select menu?: Yes Labs (Last 48 Hours) 11/12/19 11/12/19 05:10 05:10 WBC 5.2 RBC 3.83 L Hgb 11.6 L Hct 37.1 MCV 96.9 MCH 30.3 MCHC 31.3 L RDW Std Deviation 55.8 H RDW Coeff of Ace 15.9 H Plt Count 509 H MPV 9.6 Immature Gran % (Auto) 0.600 Neut % (Auto) 58.9 Lymph % (Auto) 24.1 [place] % (Auto) 10.6 H Eos % (Auto) 4.4 Baso % (Auto) 1.4 H Absolute Neuts (auto) 3.1 Absolute Lymphs (auto) 1.25 Nucleated RBC % 0 Sodium 144 Potassium 4.4 Chloride 110 H Carbon Dioxide 32.0 Anion Gap 2 L BUN 10 Creatinine 0.58 Estim Creat Clear Calc 91.22 Est GFR (MDRD) Af Amer 135 Est GFR (MDRD) Non-Af 112 BUN/Creatinine Ratio 17.2 Glucose 91 Calcium 9.8 Operations: None, - - ORIF left hip fracture Procedures: None Summary of Care Provided: The patient is a 59 year old Female with below past medical history hospitalized for left hip fracture, underwent ORIF 10/27/[address] Moura, postoperative course complicated by acute blood loss anemia requiring transfusion, narcotic induced encephalopathy, hypoxia secondary to COPD/Atelectasis, admitted to TCU with debility, here for rehabilitation, strengthening, prior to discharge home with . Lexapro 10MG daily added for depression. Discharge home with , [place] outpatient PT/OT. Patient Problems: Active and Suspected Problems (Last Reviewed 07/09/19 @ 15:57 by Isabela Harding) Debility (Acute) Urinary retention (Acute) Encephalopathy (Acute) - Physical Exam Vitals/I&O's: Vital Signs Temp Pulse Resp BP Pulse Ox 98.2 F 56 L 18 139/70 H 98 11/13/19 14:09 11/13/19 14:09 11/13/19 14:09 11/13/19 14:09 11/13/19 14:09 Oxygen Delivery Method Room Air Weight: 56.727 kg Body Mass Index (BMI) 19.7 Intake and Output for Last 24 Hours 11/11/19 11/12/19 11/13/19 23:59 23:59 23:59 Intake Total 820 / 820 1200 / 1200 480 / 480 Balance 820 / 820 1200 / 1200 480 / 480 Current Medications Acetaminophen (Tylenol) 1,000 mg PO 4X/DAY [facility] [place] Last Admin: 11/13/19 13:05 Dose: 1,000 mg Documented by: Aspirin (Ecotrin) 81 mg PO DAILY@0800 [facility] Last Admin: 11/13/19 08:02 Dose: 81 mg Documented by: Atenolol (Tenormin (Beta Zeina)) 25 mg PO DAILY [facility] Last Admin: 11/13/19 05:49 Dose: 25 mg Documented by: Atorvastatin Calcium (Lipitor) 80 mg PO QHS [facility] [place] Last Admin: 11/12/19 21:04 Dose: 80 mg Documented by: Bisacodyl (Dulcolax) 10 mg PO DAILY PRN PRN Reason: Constipation Clopidogrel Bisulfate (Plavix) 75 mg PO DAILY [facility] [place] Last Admin: 11/13/19 05:49 Dose: 75 mg Documented by: Escitalopram Oxalate (Lexapro) 10 mg PO DAILY [facility] [place] Last Admin: 11/13/19 05:49 Dose: 10 mg Documented by: Ferrous [facility] Last Admin: 11/13/19 08:02 Dose: 324 mg Documented by: Oxycodone HCl (Oxyir) 5 mg PO Q4H PRN PRN PRN Reason: Pain Score 4-10 Last Admin: 11/13/19 08:10 Dose: 5 mg Documented by: Polyethylene Glycol (Miralax) 17 gm PO DAILY [facility] [place] Last Admin: 11/13/19 05:49 Dose: Not Given Documented by: Ramipril (Altace) 20 mg PO DAILY [facility] Last Admin: 11/13/19 05:49 Dose: 20 mg Documented by: Senna/Docusate Sodium (Senokot-S, Naty-Colace) 2 tablet PO BID PRN PRN Reason: Constipation Tramadol HCl (Ultram) 50 mg PO Q6H PRN PRN PRN Reason: Pain Score 1-10 Last Admin: 11/11/19 13:08 Dose: 50 mg Documented by: Discharge Diet: No Restrictions Discharge Activity: Return to Normal Activity, May Shower, Use Walker Weight Bearing Status: Weight bearing as tolerated Call your doctor if you observe: Fever of 101 or Higher, Inability to urinate, Inability to have a bowel movement, Shortness of breath, Chest pain, Uncontrolled pain Home Medications: Medications to take at Discharge aspirin 81 mg tablet,delayed release 81 mg PO DAILY 07/09/19 ferrous gluconate 270 mg (27 mg iron) tablet 270 mg PO BID tab 07/09/19 Atenolol [Tenormin (beta zeina)] 25 mg PO DAILY 11/04/19 Atorvastatin Calcium 80 mg PO QHS 11/04/19 Clopidogrel Bisulfate [Clopidogrel] 75 mg PO DAILY 11/04/19 Ramipril 20 mg PO DAILY 11/04/19 Acetaminophen [Tylenol] 1,000 mg PO 4X/DAY tablet 11/13/19 Escitalopram Oxalate [Lexapro] 10 mg PO DAILY #30 tab 11/13/19 Oxycodone [Oxyir] 5 mg PO Q4H PRN PRN 7 Days #42 tablet 11/13/19 Polyethylene Glycol 3350 [Miralax] 17 gm PO DAILY #30 packet 11/13/19 Senna/Docusate Sodium [Senokot-S] 2 tab PO BID PRN #120 tab 11/13/19 traMADol [Ultram] 50 mg PO Q6H PRN PRN 7 Days #42 tablet 11/13/19 Following Prescrptions Were Given to Patient: Escitalopram Oxalate [Lexapro] 10 mg PO DAILY #30 tab Transmission Status: Pending to [facility] [place] Polyethylene Glycol 3350 [Miralax] 17 gm PO DAILY #30 packet Transmission Status: Pending to [facility] [place] Oxycodone [Oxyir] 5 mg PO Q4H PRN PRN 7 Days #42 tablet PRN Reason: Pain Score 4-10/10 Transmission Status: Sent to [facility] [place] Senna/Docusate Sodium [Senokot-S] 2 tab PO BID PRN #120 tab PRN Reason: Constipation Transmission Status: Pending to [facility] [place] traMADol [Ultram] 50 mg PO Q6H PRN PRN 7 Days #42 tablet PRN Reason: Pain Score 1-3/10 Transmission Status: Sent to [facility] [place] Primary Care Physician: Cora Nguyễn MD [Primary Care Provider] - Please follow up with your Primary Care Physician in: 1 week. Please Follow Up With: Brayan Moura DO When: Sunday Please Follow Up With: Cora Nguyễn MD Disposition: Home Minutes spent on discharge:: 30 Patient Condition:: Stable Medical Necessity - Tobacco Use Smoking Status: Heavy Smoker (>10/day) Tobacco Use: Cigarettes Meaningful Use Info Meaningful Use Diagnoses (Choose all that apply): None applicable
--- NOTE | 2019-11-13 17:46 | NURSING ---
Resident states iron tablet causes stomach upset. Resident would like to take it once a day.
[2019-11-13] MEDS: Atorvastatin Calcium 80 MG Tablet PO (22:12)
[2019-11-14] MEDS: Ramipril 10 MG Capsule 20 MG PO (05:58)
[2019-11-14] MEDS: Escitalopram Oxalate 10 MG Tablet PO (05:59)
[2019-11-14] MEDS: Atenolol 25 MG Tablet PO (05:59)
[2019-11-14] MEDS: Clopidogrel Bisulfate 75 MG Tablet PO (05:59)
[2019-11-14] MEDS: Acetaminophen 500 MG Tablet 1000 MG PO ×4 (06:07→22:21)
[2019-11-14] MEDS: Aspirin E.C. 81 MG Tablet PO (08:10)
[2019-11-14] MEDS: oxyCODONE 5 MG Tablet PO ×2 (09:21→17:40)
--- NOTE | 2019-11-14 11:32 | CASEMGMT ---
Social Work BIMS and PHQ-9 completed for MDS assessment. Anjelica Girard, GREEN BUILDING ENGINEER YARDER OPERATOR
[2019-11-14 13:33] VITALS: BP 146/76; PULSE 57; RESP 16; TEMP 37; O2SAT 97
[2019-11-14] MEDS: Atorvastatin Calcium 80 MG Tablet PO (22:17)
[2019-11-15 06:37] VITALS: BP 164/78; PULSE 53
[2019-11-15] MEDS: Ramipril 10 MG Capsule 20 MG PO (06:42)
[2019-11-15] MEDS: Escitalopram Oxalate 10 MG Tablet PO (06:42)
[2019-11-15] MEDS: Clopidogrel Bisulfate 75 MG Tablet PO (06:42)
[2019-11-15] MEDS: Acetaminophen 500 MG Tablet 1000 MG PO ×4 (06:42→22:27)
[2019-11-15] MEDS: Aspirin E.C. 81 MG Tablet PO (08:16)
[2019-11-15] MEDS: Atenolol 25 MG Tablet PO (08:17)
[2019-11-15 08:18] VITALS: BP 151/75; PULSE 57
[2019-11-15] MEDS: oxyCODONE 5 MG Tablet PO ×2 (08:21→17:36)
[2019-11-15] MEDS: traMADol 50 MG Tablet PO (11:08)
[2019-11-15 13:38] VITALS: BP 141/85; PULSE 61; RESP 16; TEMP 36.4; O2SAT 97
[2019-11-15] MEDS: Ferrous Gluconate 324 MG Tablet PO (17:31)
[2019-11-15] MEDS: Atorvastatin Calcium 80 MG Tablet PO (22:29)
[2019-11-16] MEDS: Ramipril 10 MG Capsule 20 MG PO (06:52)
[2019-11-16] MEDS: Clopidogrel Bisulfate 75 MG Tablet PO (06:53)
[2019-11-16] MEDS: Escitalopram Oxalate 10 MG Tablet PO (06:53)
[2019-11-16] MEDS: Atenolol 25 MG Tablet PO (06:53)
[2019-11-16] MEDS: Acetaminophen 500 MG Tablet 1000 MG PO (06:53)
[2019-11-16] MEDS: Aspirin E.C. 81 MG Tablet PO (07:35)
[2019-11-16] MEDS: oxyCODONE 5 MG Tablet PO (07:38)
[2019-11-16 07:39] VITALS: BP 164/74; PULSE 48; RESP 18; TEMP 36.9; O2SAT 99
== END 2019-11-16 10:00 | disposition home or self-care (01) | DRG 561 ==
PROVIDERS: Admitting Provider Family Medicine Geriatric Medicine; PCP Internal Medicine; Referring Provider Family Medicine Geriatric Medicine; Visit Provider Family Medicine Geriatric Medicine
DX: S72.002D Fracture of unspecified part of neck of left femur, subsequent encounter for closed fracture with routine healing (principal); W19.XXXD Unspecified fall, subsequent encounter; E78.5 Hyperlipidemia, unspecified; I25.10 Atherosclerotic heart disease of native coronary artery without angina pectoris; I10 Essential (primary) hypertension; D50.9 Iron deficiency anemia, unspecified; J44.9 Chronic obstructive pulmonary disease, unspecified; F17.210 Nicotine dependence, cigarettes, uncomplicated; Z23 Encounter for immunization; F32.9 Major depressive disorder, single episode, unspecified; F41.9 Anxiety disorder, unspecified
CPT/HCPCS: 36415; 80048; 85025; 97110; 97116; 97163; 97167; 97530; 97535; 97802; 99406; 90670

== ENCOUNTER → 2020-04-09 06:07 | Outpatient (CLI) | payer BC, SELFPAY ==
[2020-04-05 11:37] VITALS: BMI 20.3
--- NOTE | 2020-04-09 14:49 | STRESSREP_ITS ---
Stress Test Report Date: 04-09-2020 Procedure: Pharmacologic stress nuclear imaging study Indications: Chest pain; CAD; PCI Consent: Per the patient Procedure: The patient underwent pharmacologic (Regadenoson) evaluation with a peak heart rate of 80 beats per minute (50 %predicted maximal heart rate) and a peak blood pressure of 170/94 mmHg. The baseline ECG demonstrated and is bradycardia. The peak pharmacologic ECG demonstrated no obvious ECG changes. There were occasional PVCs during recovery. There was no complaint of chest discomfort during pharmacologic infusion or recovery. The examination was discontinued secondary to completion of protocol. Impression: 1. Pharmacologic (Regadenoson) evaluation 2. Peak pharmacologic ECG with no obvious ECG changes. 3. There were occasional PVCs during recovery. 4. Nuclear images pending Myocardial perfusion imaging study: Technique: The patient was injected with 10.7 millicuries of technetium 99m Cardiolite and subsequently rest SPECT Cardiolite nuclear imaging was obtained in the horizontal long, vertical long, and short axis views. The patient underwent pharmacologic (Regadenoson) evaluation with a peak heart rate of 80 beats per minute (50 % percent predicted maximal heart rate) and a peak blood pressure of 170/94 mmHg. The patient was injected with 32.9 millicuries of technetium 99m Cardiolite and subsequently stress SPECT Cardiolite nuclear imaging was obtained in the horizontal long, vertical long, and short axis views. A gated Cardiolite study at peak stress was not obtained. Interpretation: Rest and stress SPECT Cardiolite nuclear imaging status post realignment and normalization demonstrate area of diminished myocardial perfusion/tracer uptake in the mid interventricular septal area which appears to be somewhat more prominent status post stress as opposed to rest. A gated Cardiolite study at peak stress was not obtained. Impression: 1. Rest and stress SPECT current nuclear imaging demonstrate myocardial perfusion changes potentially compatible with an area of previous myocardial injury/infarction with post-rest myocardial perfusion changes considered densely compatible with mild denise-infarct related myocardial ischemia. 2. A gated Cardiolite study at peak stress was not obtained. This note was generated with rubberitation software. It may contain incorrect words, spelling, and punctuation that were not noted in checking the note before signing.
== END ==
PROVIDERS: PCP Internal Medicine; Referring Provider Nurse Practitioner Family; Visit Provider Nurse Practitioner Family
DX: I25.10 Atherosclerotic heart disease of native coronary artery without angina pectoris (principal); Z95.5 Presence of coronary angioplasty implant and graft; R07.9 Chest pain, unspecified
CPT/HCPCS: 78452; 93017; A9500; A4216; J2785

== ENCOUNTER 2020-04-13 16:05 | Observation (INO) | payer BC, SELFPAY ==
[2020-04-05 11:37] VITALS: BMI 20.3
[2020-04-13 16:06] VITALS: BP 195/85; PULSE 56; RESP 16; TEMP 36.4; O2SAT 98; BMI 20.5
--- NOTE | 2020-04-13 16:29 | EKG12_ITS ---
Test Reason : CHEST PAIN Blood Pressure : / mmHG Vent. Rate : 056 BPM Atrial Rate : 056 BPM P-R Int : 180 ms QRS Dur : 074 ms QT Int : 444 ms P-R-T Axes : 048 059 101 degrees QTc Int : [address] & T wave abnormality, consider lateral ischemia Abnormal ECG Confirmed by JOSE MOYA ([id number]), image editor GRIS REYEZ ([id number]) on 04/16/2020 10:29:16 AM Referred By: DIGNA Confirmed By:JOSE MOYA
--- NOTE | 2020-04-13 16:30 | ED.DCSUM_ITS ---
- ER Visit Summary Date of Service: 04/13/20 Chief Complaint: Chest pain History of Present Illness: The patient is a 59 F who presents with chest pain that is been intermittent over the past several days. Patient describes her pain as a heaviness. Patient states it is over the substernal area. Patient s tatyesica she does have some mild sharp pain in the left upper chest area. Patient states her heaviness and tightness is worse with any exertion and improves with rest. Patient does admit to some shortness of breath and diaphoresis with the pain. Patient also admits to some palpitations. Patient does have a history of reflux and has been having some increased reflux symptoms as well. Patient stat es she was seen at Dr. Clancy's office and had a stress test recently. Patient states this was somewhat abnormal and Dr. Clancy's office was planning on arranging for cardiac catheterization. Patient states this was not definitively scheduled as yet. Physical Examination: Vital signs are stable. Patient is afebrile. Patient is in no acute distress. Oral mucosa is pink and moist. Neck is supple. Trachea is midline. There is no JVD noted. Heart was regular rate and rhythm. Lungs are clear and equal bilaterally. Abdomen is soft. Bowel sounds are normal. Th ere is no tenderness. There is no rebound or guarding noted. Skin is warm dry. Cranial nerves II through XII are intact. There are no focal motor or sensory deficits noted. Extremities are intact. There is no calf tenderness or edema. Test Results: EKG showed normal sinus rhythm with a rate of 56. There are nonspecific ST-T wave changes in leads V4 and V5 which are unchanged compared to previous EKG dated 04/05/2020. CBC shows a slight anemia with a hemoglobin of 11.6 and hematocrit 35.9. Basic metabolic profile was within normal limits. Troponin was normal. Emergency Department Course and Treatment: Patient was given aspirin here. Patient was ordered some lingual nitroglycerin but was not having any chest pain while she was at rest and none was given. Patient has a HEART score of 6. Case was discussed with Dr. Clancy. He agrees with admitting the patient to the hospitalist. He did recommend keeping the patient n.p.o. after midnight in case he could perform the heart cath tomorrow. Case was discussed with the hospitalist. He will admit the patient for observation to PCU. Patient and family understood and were agreeable with the plan. All questions were answered. Disposition: Admit to hospital Impression: 1. Chest pain This note was generated with [employer] dictation software. It may contain incorrect words, spelling, and punctuation that were not noted in review of the chart prior to signing ED Disposition - Plan for ED Patient: Disposition: Acute Care Hospital [facility] Diagnosis: Chest pain Referrals: Cora Nguyễn MD [Primary Care Provider] -
[2020-04-13 16:38] LABS: Absolute Lymphocyte Count 1.58 X10^3/uL (0.83-4.51); Absolute Neutrophil Count 4.3 X10^3/uL (2.0-7.7); Basophil# 0.05 X10^3/uL; Basophil% 0.8 % (0-1); Eosinophil# 0.14 X10^3/uL; Eosinophils% 2.1 % (0-5); Hematocrit 35.9 % (37-47); Hemoglobin 11.6 g/dL (12.0-15.0); Lymphocyte # 1.58 X10^3/ul (4.0); Lymphocyte % 23.9 % (19-41); Mean Corp Hgb Conc 32.3 g/dL (32-36); Mean Corpuscular Hgb 30.4 pg (27.0-32.0); Mean Corpuscular Volume 94.2 fL (81-99); Mean Platelet Vol. 10.7 fl (6.2-12.0); Monocyte# 0.55 X10^3/uL; Monocyte% 8.3 % (0-10); NRBC Flagged by Analyzer 0 % (0-5); Neutrophil # 4.25 X10^3/uL (2.7-7.7); Neutrophil % 64.4 % (47-70); Platelet Count 279 K/mm3 (150-450); RBC Distribution Width CV 12.6 % (11.6-14.6); RBC Distribution Width SD 43.4 fl (35.1-43.9); Red Blood Count 3.81 M/mm3 (4.2-5.4); White Blood Count 6.6 K/mm3 (4.4-11.0)
--- NOTE | 2020-04-13 16:45 | RAD_ITS ---
STUDY: X-RAY CHEST REASON FOR EXAM: Female, 59 years old. Chest pain TECHNIQUE: 2 AP portable views COMPARISON: 10/25/2019 FINDINGS: EKG leads overlie the chest The lungs are clear and expanded. There is no demonstrated pleural abnormality. Normal size heart. Normal mediastinum and rosamaria. Normal visualized pulmonary arteries. There is atherosclerotic calcification of the aortic arch with tortuosity. There are diffuse degenerative changes of the visualized thoracic spine. There is degenerative osteoarthritis of the bilateral shoulders. There is no demonstrated abnormality of the visualized soft tissue structures of the upper abdomen. RAD/Chest 1 View (Portable) IMPRESSION: No acute pulmonary process Electronically Signed: Reuben Cole MD at 17:15 EDT , Service support ,
[2020-04-13 16:54] LABS: Anion Gap 4 (5-15); BUN 12 mg/dL (7-18); BUN/Creat Ratio 19.1 RATIO (10-20); Calcium,Total 9.5 mg/dL (8.5-10.1); Chloride 110 mmol/L (98-107); Creatinine, Serum 0.63 mg/dL (0.55-1.02); EST Glomerular Filtration Rate 102 mL/min (>60); Est Glom Filt Rate - Afr Amer 124 mL/min (>60); Estimated Creatinine Clearance 87.93 ml/min; Glucose 134 mg/dL (74-106); Potassium 3.7 mmol/L (3.5-5.1); Sodium Level 143 mmol/L (136-145)
[2020-04-13] MEDS: Aspirin 81 MG TAB.CHEW 324 MG PO (16:54)
--- NOTE | 2020-04-13 18:03 | NURSING ---
PCU OBS HARI VAZ
[2020-04-13 18:08] VITALS: BP 168/73; PULSE 52; RESP 16; TEMP 36.6; O2SAT 96
--- NOTE | 2020-04-13 18:13 | PCM.HP.STD ---
<Danilo Harris - Last Filed: 04/13/20 18:13> Problem List (1) Chest pain Status: Acute (2) Anxiety Status: Chronic (3) COPD (chronic obstructive pulmonary disease) Status: Chronic Comment: suspected (4) Coronary artery disease Status: Chronic (5) Tobacco abuse Status: Chronic (6) Nonrheumatic aortic (valve) insufficiency Status: Chronic (7) Pure hypercholesterolemia Status: Chronic (8) Essential (primary) hypertension Status: Chronic (9) History of coronary artery stent placement Status: Chronic Comment: PCI/stent to LCX 03/11/08 History of Present Illness Date of Admission: 04/13/20 Chief Complaint: chest pain The patient is a 59 year old F with pmhx of CAD with stent 11 years ago, ongoing nicotine abuse, HTN, HLD, aortic valve insufficiency, who presents to the ER with c/o chest pain. The patient began feeling unwell about a month ago. She has had increased fatigue and SOB with exertion. 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 Clancy and arranged to have a stress test. This was found to be abnormal and she was planning to have an outpatient heart cath for follow up. The last two days she has had worsening symptoms. She has chest heaviness, heartburn, SOB, and diaphoresis with exertion relieved by rest. She denies LH, palp, or LE edema. She denies recent illness or infection. She continues to smoke 1/2 pack per day.[] Past Medical History Past Medical History (Chronic Problems): Chronic Problems (Last Reviewed 07/09/19 @ 15:57 by Isabela Harding) Nicotine dependence, cigarettes, uncomplicated (Chronic) Anxiety (Chronic) COPD (chronic obstructive pulmonary disease) (Chronic) suspected Iron deficiency anemia (Chronic) Coronary artery disease (Chronic) Tobacco abuse (Chronic) Nonrheumatic mitral (valve) insufficiency (Chronic) Nonrheumatic aortic (valve) insufficiency (Chronic) Pure hypercholesterolemia (Chronic) Essential (primary) hypertension (Chronic) History of coronary artery stent placement (Chronic ~03/11/08) PCI/stent to LCX 03/11/08 Atherosclerosis of [place] coronary artery of [place] heart without angina pectoris (Chronic) Stenting to LCX in March 2008; Medical History: Medical History (Last Reviewed 07/09/19 @ 15:57 by Isabela Harding) Nonrheumatic mitral (valve) insufficiency (Chronic) I34.0 Pure hypercholesterolemia (Chronic) E78.00 Essential (primary) hypertension (Chronic) I10 Atherosclerosis of [place] coronary artery of [place] heart without angina pectoris (Chronic) I25.10 Stenting to LCX in March 2008; Allergies codeine Allergy (Intermediate, Verified 04/13/20 16:09) nausea and vomiting Home Medications: Ambulatory Orders Medication Instructions Recorded aspirin 81 mg tablet,delayed 81 mg PO DAILY 07/09/19 release Atenolol [Tenormin (beta tom)] 25 mg PO DAILY 11/04/19 Atorvastatin Calcium 80 mg PO QHS 11/04/19 Clopidogrel Bisulfate [Clopidogrel] 75 mg PO DAILY 11/04/19 Ramipril 20 mg PO DAILY 11/04/19 Escitalopram Oxalate [Lexapro] 10 mg PO DAILY 04/13/20 Niacin 500 mg PO DAILY 04/13/20 Pantoprazole Sodium [Protonix] 40 mg PO DAILY 04/13/20 Surgical History: Surgical History (Last Reviewed 07/09/19 @ 15:57 by Isabela Harding) History of coronary artery stent placement (Chronic) Onset Date: ~03/11/08 Z95.5 PCI/stent to LCX 03/11/08 History of hysterectomy Z90.710 History of open reduction and internal fixation (ORIF) procedure Z98.890 right side of neck for pinched nerve History of shoulder surgery Z98.890 right ligament repair History of tonsillectomy Z90.89 Surgical History: angioplasty - Cardiac stent., hysterectomy, tonsillectomy, - - ORIF neck, Right shoulder surgery. 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 Lives: Spouse/ Significant Other Smoking Status: Current every day smoker Tobacco Use: Cigarettes Alcohol: None Drugs: None - *Family History Maternal Family History: Family History (Last Reviewed 04/13/20 @ 18:18 by MARY ANNE Persaud) Father Myocardial infarction Mother Myocardial infarction Brother CAD (coronary artery disease) Hypertension Sister Hypertension History Items: No pertinent history Paternal Family History: Family History (Last Reviewed 04/13/20 @ 18:18 by MARY ANNE Persaud) Father Myocardial infarction Mother Myocardial infarction Brother CAD (coronary artery disease) Hypertension Sister Hypertension History Items: No pertinent history Review of Systems Constitutional: Reports: Malaise, Weakness, Fatigue. Denies: Chills, Fever, Weight Change Eyes: Denies: Blurred vision, Double vision, Vision Change HEENT: Denies: Difficulty Hearing, Head Aches, Sinus Congestion, Sinus Drainage Cardiovascular: Reports: Chest Pain, Heaviness, - - diaphoresis. Denies: Edema, Light Headedness, Palpitations, Syncope Respiratory: Reports: Shortness of Breath, Shortness of breath upon exertion. Denies: Cough, Shortness of breath at rest, Sputum production Gastrointestinal: Reports: Nausea. Denies: Abdominal Pain, Diarrhea, Vomiting Genitourinary: Denies: Dysuria, Frequency Musculoskeletal: Denies: Joint Pain, Joint Tenderness Skin: Denies: Lesions, Rash, Wounds Neurological: Denies: Numbness, Tingling, Focal weakness Psychiatric: Denies: Anxiety, Depression, Homicidal Ideations, Suicidal Ideations Hematologic/ Lymphatic: Denies: Easy Bruising, Easy Bleeding VTE Information - Inpt Only VTE Present on Admission: No VTE Mechan Device Prophylaxis: None VTE Pharm Prophylaxis ordered?: Yes Patient Problems: Active and Suspected Problems (Last Reviewed 07/09/19 @ 15:57 by Isabela Harding) Chest pain (Acute) - Physical Exam Vitals/I&O's: Vital Signs Temp Pulse Resp BP Pulse Ox 98 F 52 L 16 168/73 H 96 04/13/20 18:08 04/13/20 18:08 04/13/20 18:08 04/13/20 18:08 04/13/20 18:08 Oxygen Delivery Method Room Air Weight: 130 lb 15.273 oz Body Mass Index (BMI) 20.5 General: Alert, Oriented x3, Cooperative HEENT: Atraumatic, PERRLA, EOMI, Normocephalic Neck: Supple, No JVD, Negative Carotid Bruits Lungs: Clear to auscultation, Normal air movement Cardiovascular: Regular rate, No murmurs, Murmur - 3/6 systolic murmur best heard at RSB 2nd ICS radiating loudly into the right neck. Abdomen: Bowel Sounds Present, Soft, Non Tender Extremities: No edema, Capillary Refill Less than 3 Seconds Skin: No rashes, No breakdown Musculoskeletal: No Tenderness to Palpation of Joints or Extremities Neurological: Cranial nerves II-XII grossly intact Psych/Mental Status: Normal Affect, Appropriate, Alert and oriented to time, place, person, mood and affect Laboratory Results 04/13/20 16:10: WBC 6.6, RBC 3.81 L, Hgb 11.6 L, Hct 35.9 L, MCV 94.2, MCH 30.4, MCHC 32.3, RDW Std Deviation 43.4, RDW Coeff of Ace 12.6, Plt Count 279, MPV 10.7, Immature Gran % (Auto) 0.500, Neut % (Auto) 64.4, Lymph % (Auto) 23.9, Richardson % (Auto) 8.3, Eos % (Auto) 2.1, Baso % (Auto) 0.8, Absolute Neuts (auto) 4.3, Absolute Lymphs (auto) 1.58, Nucleated RBC % 0 04/13/20 16:10: Sodium 143, Potassium 3.7, Chloride 110 H, Carbon Dioxide 29.0, Anion Gap 4 L, BUN 12, Creatinine 0.63, Estim Creat Clear Calc 87.93, Est GFR (MDRD) Af Amer 124, Est GFR (MDRD) Non-Af 102, BUN/Creatinine Ratio 19.1, Glucose 134 H, Calcium 9.5, Troponin I < 0.015 Current Medications Nitroglycerin (Nitrostat) 0.4 mg SUBLINGUAL Q5M PRN PRN Reason: Chest pain Assessment/Plan All Active Problems (Last Reviewed 07/09/19 @ 15:57 by Isabela Harding) Chest pain (Acute) 1. Chest pain - cardiology consulted. Patient will go fo heart cath in AM. Trop neg. EKG with nonspecific T wave changes. CXR negative. PRN nitro. EKG in AM. 2. CAD - prior stent 2007-circumflex. She is currently treated with aspirin, atenolol, plavix, ramipril, atorvastatin 3. HTN - poorly controlled. PRN hydralazine + home meds. 4. HLD - statin 5 Nicotine abuse - it is imperative that she completely stop smoking. She is still smoking 1/2 ppd. she has smoked since age 13. 6. Anx/Depression - lexapro 7. GERD - on PPI 8. Hx Aortic valve disease - no recent echo. loud murmur on exam. DVT ppx: lovenox This patient was seen by Danilo Harris PA-C under the supervision of Doctor Waller. <Melany Waller E - Last Filed: 04/13/20 19:02> History of Present Illness The patient is a 59 year old F [] Past Medical History Medical History: Medical History (Last Reviewed 07/09/19 @ 15:57 by Isabela Harding) Nonrheumatic mitral (valve) insufficiency (Chronic) I34.0 Pure hypercholesterolemia (Chronic) E78.00 Essential (primary) hypertension (Chronic) I10 Atherosclerosis of [place] coronary artery of [place] heart without angina pectoris (Chronic) I25.10 Stenting to LCX in March 2008; Allergies codeine Allergy (Intermediate, Verified 04/13/20 16:09) nausea and vomiting Surgical History: Surgical History (Last Reviewed 07/09/19 @ 15:57 by Isabela Harding) History of coronary artery stent placement (Chronic) Onset Date: ~03/11/08 Z95.5 PCI/stent to LCX 03/11/08 History of hysterectomy Z90.710 History of open reduction and internal fixation (ORIF) procedure Z98.890 right side of neck for pinched nerve History of shoulder surgery Z98.890 right ligament repair History of tonsillectomy Z90.89 - *Family History Maternal Family History: Family History (Last Reviewed 04/13/20 @ 18:18 by MARY ANNE Persaud) Father Myocardial infarction Mother Myocardial infarction Brother CAD (coronary artery disease) Hypertension Sister Hypertension Paternal Family History: Family History (Last Reviewed 04/13/20 @ 18:18 by MARY ANNE Persaud) Father Myocardial infarction Mother Myocardial infarction Brother CAD (coronary artery disease) Hypertension Sister Hypertension - Physical Exam Vitals/I&O's: Vital Signs Temp Pulse Resp BP Pulse Ox 98 F 52 L 16 168/73 H 96 04/13/20 18:08 04/13/20 18:08 04/13/20 18:08 04/13/20 18:08 04/13/20 18:08 Oxygen Delivery Method Room Air Weight: 130 lb 15.273 oz Body Mass Index (BMI) 20.5 Laboratory Results 04/13/20 16:10: WBC 6.6, RBC 3.81 L, Hgb 11.6 L, Hct 35.9 L, MCV 94.2, MCH 30.4, MCHC 32.3, RDW Std Deviation 43.4, RDW Coeff of Ace 12.6, Plt Count 279, MPV 10.7, Immature Gran % (Auto) 0.500, Neut % (Auto) 64.4, Lymph % (Auto) 23.9, Richardson % (Auto) 8.3, Eos % (Auto) 2.1, Baso % (Auto) 0.8, Absolute Neuts (auto) 4.3, Absolute Lymphs (auto) 1.58, Nucleated RBC % 0 04/13/20 16:10: Sodium 143, Potassium 3.7, Chloride 110 H, Carbon Dioxide 29.0, Anion Gap 4 L, BUN 12, Creatinine 0.63, Estim Creat Clear Calc 87.93, Est GFR (MDRD) Af Amer 124, Est GFR (MDRD) Non-Af 102, BUN/Creatinine Ratio 19.1, Glucose 134 H, Calcium 9.5, Troponin I < 0.015 Current Medications Nitroglycerin (Nitrostat) 0.4 mg SUBLINGUAL Q5M PRN PRN Reason: Chest pain Assessment/Plan Hospitalist note: I am seeing this patient in conjunction with Danilo Harris. I independently seen and examined the patient. History and physical, laboratory data and imaging studies reviewed and I concur with above admission and work-up plan. Patient presented to the emergency room because of chest pain. Her symptoms started today after she woke up from sleep, felt short of breath, comes on with exertion, aggravated by more activity, relieved with rest, associated with mild chest pain that was described as chest heaviness across her chest and also relieved with rest and associated with diaphoresis. She has been having this shortness of breath and intermittent chest pain for the past several weeks. She had a stress test done as outpatient on April 09, 2020 that was abnormal and revealed myocardial perfusion changes compatible with previous myocardial injury/ischemia. She was scheduled to have cardiac catheterization done as outpatient. At this time, she is chest pain-free. In the emergency department, her blood pressure was elevated, other vital signs were stable. Routine blood work was remarkable for chronic anemia, otherwise normal. EKG revealed minimal ST depression in leads V3, V4 and V5 and those changes were present on EKG from October, but it is more prominent, no acute ST elevation. Troponin was negative. Chest x-ray showed no acute findings. She is being admitted for chest pain/unstable angina for evaluation. - Physical Exam General: Alert, Oriented x3, Cooperative, No apparent distress. HEENT: Atraumatic, PERRLA, EOMI. Neck: Supple, No JVD, Negative Carotid Bruits, Trachea Midline, Thyroid Normal. Lungs: Clear to auscultation, Normal air movement, No rhonchi, No wheeze, No rales. Cardiovascular: Regular rate, Regular Rhythm, Normal S1, Normal S2, PMI Normal. Abdomen: Bowel Sounds Present, Soft, Non Tender, Non-Distended, No Hepato-splenomegaly. Extremities: No clubbing, No cyanosis, No edema Skin: No rashes, No breakdown Neurological: Cranial nerves are intact, neuro grossly intact Assessment and plan: #1 chest pain/unstable angina/abnormal stress test: At this time, she is chest pain-free. EKG reviewed as above. Stress test that was done on April 09, 2021 reviewed. Troponin is negative. Plan: Admit to PCU for observation, cardiac monitoring, serial cardiac enzymes, repeat EKG tomorrow morning, cardiology consult, gentle IV fluids for hydration, nitroglycerin PRN, Tylenol PRN, Zofran PRN, continue aspirin, statins, Plavix and atenolol as well as ramipril. #2 hypertension: Uncontrolled, elevated in the ED. Plan to continue home medications, start IV adenosine PRN. #3 other chronic medical problems: Stable, continue current medications as above. This note was generated with [employer] dictation software. It may contain incorrect words, spelling, and punctuation that were not noted in checking the note before signing. OBSV E&M: 53319 Initial observation care L3
[2020-04-13 18:35] VITALS: BP 160/78; PULSE 53; RESP 16; TEMP 37.3; O2SAT 97
[2020-04-13 19:15] VITALS: PULSE 68
[2020-04-13 19:52] VITALS: BMI 20.2
[2020-04-13 19:57] VITALS: BMI 20.3
--- NOTE | 2020-04-13 19:57 | PCM.CONS.C ---
Problem List (1) Accelerating angina Status: Acute (2) Coronary artery disease Status: Chronic Qualifiers: Coronary Disease-Associated Artery/Lesion type: [place] artery [place] vs. transplanted heart: [place] heart (3) History of coronary artery stent placement Status: Chronic Comment: PCI/stent to LCX 03/11/08 (4) Valvular heart disease Status: Chronic (5) Pure hypercholesterolemia Status: Chronic (6) Essential (primary) hypertension Status: Chronic Reason for Consult Date of Consultation: 04/13/20 History of Present Illness: The patient is a 59 year oldfms-owat-emj white female with a history of CAD, PCI, valvular heart disease, hyperlipidemia, hypertension is referred for concerns of accelerating angina pectoris and an abnormal stress nuclear imaging study pending plans for upcoming evaluation with diagnostic cardiac catheterization. The patient states that she is noticed progressive exertional chest discomfort over her left chest area which she describes as a pressure/heavy sensation associated with a sensation of not being able to catch my breath as well as some element of nausea and diaphoresis which all appear to improve with rest. She notes this is getting more and more pronounced with less and less exertional activity. She also notes concerns where she has an epigastric discomfort that seems to radiate up into her chest as well. She is not sure whether this is coming from concern of cardiac related issues versus possible gastrointestinal related issues. She denies orthopnea or PND or peripheral pitting edema. There has been no near syncope or syncope. Based upon her worsening symptoms she presented to the emergency department today. She had a troponin I level which was negative. An ECG demonstrated sinus bradycardia with nonspecific ST and T wave changes with concern of possible myocardial ischemia in the lateral distribution. Her chest x-ray suggested no acute cardiopulmonary disease process. She was placed in the PCU for further evaluation and care with cardiology consultation for consideration to proceed with her previously requested diagnostic cardiac catheterization. [] Past Medical History Allergies/Adverse Reactions: Allergies codeine Allergy (Intermediate, Verified 04/13/20 16:09) nausea and vomiting Home Medications: Ambulatory Orders Medication Instructions Recorded aspirin 81 mg tablet,delayed 81 mg PO DAILY 07/09/19 release Atenolol [Tenormin (beta tom)] 25 mg PO DAILY 11/04/19 Atorvastatin Calcium 80 mg PO QHS 11/04/19 Clopidogrel Bisulfate [Clopidogrel] 75 mg PO DAILY 11/04/19 Ramipril 20 mg PO DAILY 11/04/19 Escitalopram Oxalate [Lexapro] 10 mg PO DAILY 04/13/20 Niacin 500 mg PO DAILY 04/13/20 Pantoprazole Sodium [Protonix] 40 mg PO DAILY 04/13/20 Past Medical History (Chronic Problems): Chronic Problems (Last Reviewed 07/09/19 @ 15:57 by Isabela Harding) Valvular heart disease (Chronic) Nicotine dependence, cigarettes, uncomplicated (Chronic) Anxiety (Chronic) COPD (chronic obstructive pulmonary disease) (Chronic) suspected Iron deficiency anemia (Chronic) Coronary artery disease (Chronic) Tobacco abuse (Chronic) Nonrheumatic mitral (valve) insufficiency (Chronic) Nonrheumatic aortic (valve) insufficiency (Chronic) Pure hypercholesterolemia (Chronic) Essential (primary) hypertension (Chronic) History of coronary artery stent placement (Chronic ~03/11/08) PCI/stent to LCX 03/11/08 Atherosclerosis of [place] coronary artery of [place] heart without angina pectoris (Chronic) Stenting to LCX in March 2008; Surgical History: angioplasty - Cardiac stent., hysterectomy, tonsillectomy, - - ORIF neck, Right shoulder surgery. 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: No pertinent WEATHERIZATION DIRECTOR history - *Family History Maternal Family History: Family History (Last Reviewed 04/13/20 @ 18:18 by MARY ANNE Persaud) Father Myocardial infarction Mother Myocardial infarction Brother CAD (coronary artery disease) Hypertension Sister Hypertension History Items: No pertinent history Paternal Family History: Family History (Last Reviewed 04/13/20 @ 18:18 by MARY ANNE Persaud) Father Myocardial infarction Mother Myocardial infarction Brother CAD (coronary artery disease) Hypertension Sister Hypertension History Items: No pertinent history Lives: Spouse/ Significant Other Smoking Status: Current every day smoker Tobacco Use: Cigarettes Alcohol: None Drugs: None Review of Systems - Review of Systems General: Denies: Fever, Night Sweats, Fatigue Cardiovascular: Reports: Chest Discomfort, Chest Discomfort with Exertion, Shortness of Breath, Shortness of Breath with Exertion. Denies: Orthopnea, PND, Peripheral Edema, Palpitations, Lightheadedness, Dizziness, Near Syncope, Syncope Respiratory: Reports: Shortness of Breath. Denies: Cough, Sputum Production, Hemoptysis Gastrointestinal: Reports: Epigastric Discomfort. Denies: Hematemesis, Hematochezia, Melena Genitourinary: Denies: Dysuria, Hematuria Skin: Denies: Rash Subjectve: This is a thin 59-year-old white female who appears to be resting reasonably comfortably at the moment in no acute distress. Objective: Vital Signs Temp Pulse Resp BP Pulse Ox 99.1 F 68 16 160/78 H 97 04/13/20 18:35 04/13/20 19:15 04/13/20 18:35 04/13/20 18:35 04/13/20 18:35 Oxygen Delivery Method Room Air Weight: 129 lb 9.6 oz Body Mass Index (BMI) 20.2 General: Awake, Alert, Oriented x 3, Cooperative, No Acute Distress HEENT: Atraumatic, Normocephalic, PERRL, EOMI, Sclera Non Icteric Neck: Supple, Good ROM, No JVD Lungs: Clear to auscultation Cardiovascular: Regular Rhythm, Normal S1, Normal S2 Murmur Murmur: Grade 3/6, Harsh, Mid Systolic, LLSB, LVOT, Sternal Notch Vascular: Radiation of Murmur to Carotid Arteries Abdomen: Bowel Sounds Present, Soft, Non Tender Extremities: No edema Neurological: No Focal Motor or Sensory Deficit Psych/Mental Status: Appropriate 04/13/20 16:10: WBC 6.6, RBC 3.81 L, Hgb 11.6 L, Hct 35.9 L, MCV 94.2, MCH 30.4, MCHC 32.3, Plt Count 279, MPV 10.7, Immature Gran % (Auto) 0.500, Neut % (Auto) 64.4, Lymph % (Auto) 23.9, [place] % (Auto) 8.3, Eos % (Auto) 2.1, Baso % (Auto) 0.8, Absolute Neuts (auto) 4.3, Nucleated RBC % 0 04/13/20 16:10: Sodium 143, Potassium 3.7, Chloride 110 H, Carbon Dioxide 29.0, Anion Gap 4 L, BUN 12, Creatinine 0.63, Est GFR (MDRD) Af Amer 124, Est GFR (MDRD) Non-Af 102, BUN/Creatinine Ratio 19.1, Glucose 134 H, Calcium 9.5, Troponin I < 0.015 04/13/20 16:10: PT 13.0, INR 1.0 04/13/20 19:07: Troponin I < 0.015 Rhythm: Sinus rhythm EKG: As noted above ECHO: 06-08-2016 Left ventricle normal with an LVEF 60% Mild MR Mild TR Mild diffuse aortic valve thickening Mild AI Estimated RV systolic pressure 27 mmHg Decreased diastolic compliance Stress Test: Stress Test Report Date: 04-09-2020 Procedure: Pharmacologic stress nuclear imaging study Indications: Chest pain; CAD; PCI Consent: Per the patient Procedure: The patient underwent pharmacologic (Regadenoson) evaluation with a peak heart rate of 80 beats per minute (50 %predicted maximal heart rate) and a peak blood pressure of 170/94 mmHg. The baseline ECG demonstrated and is bradycardia. The peak pharmacologic ECG demonstrated no obvious ECG changes. There were occasional PVCs during recovery. There was no complaint of chest discomfort during pharmacologic infusion or recovery. The examination was discontinued secondary to completion of protocol. Impression: 1. Pharmacologic (Regadenoson) evaluation 2. Peak pharmacologic ECG with no obvious ECG changes. 3. There were occasional PVCs during recovery. 4. Nuclear images pending Myocardial perfusion imaging study: Technique: The patient was injected with 10.7 millicuries of technetium 99m Cardiolite and subsequently rest SPECT Cardiolite nuclear imaging was obtained in the horizontal long, vertical long, and short axis views. The patient underwent pharmacologic (Regadenoson) evaluation with a peak heart rate of 80 beats per minute (50 % percent predicted maximal heart rate) and a peak blood pressure of 170/94 mmHg. The patient was injected with 32.9 millicuries of technetium 99m Cardiolite and subsequently stress SPECT Cardiolite nuclear imaging was obtained in the horizontal long, vertical long, and short axis views. A gated Cardiolite study at peak stress was not obtained. Interpretation: Rest and stress SPECT Cardiolite nuclear imaging status post realignment and normalization demonstrate area of diminished myocardial perfusion/tracer uptake in the mid interventricular septal area which appears to be somewhat more prominent status post stress as opposed to rest. A gated Cardiolite study at peak stress was not obtained. Impression: 1. Rest and stress SPECT current nuclear imaging demonstrate myocardial perfusion changes potentially compatible with an area of previous myocardial injury/infarction with post-rest myocardial perfusion changes considered densely compatible with mild denise-infarct related myocardial ischemia. 2. A gated Cardiolite study at peak stress was not obtained. This note was generated with [email or web address] software. It may contain incorrect words, spelling, and punctuation that were not noted in checking the note before signing. Cardiac Cath: 02-19-2009 Conclusion: Normal left ventricular systolic function with an LVEF of 65% LAD with 10 to 20% proximal and 10 to 20% mid stenosis Ramus intermedius with mild diffuse plaque Circumflex with 10 to 20% proximal stenosis, 10 to 20% mid stenosis, with mild ectasia and patent mid to distal stent with 10 to 20% in-stent stenosis RCA with 10 to 20% proximal and 10% mid stenosis PCI: 03-11-2008: [facility] LCx PTCA/stent: Liberte RE Stent 4.00 x 12.0 CXR: As noted above Assessment/Plan 1. Accelerating angina pectoris The patient presents with concerns of accelerating angina pectoris. She has a history of underlying CAD. She has recently undergone an exercise tolerance test/imaging study with findings as noted: Raising concerns of possible previous NH with denise-NH related ischemia. At the present time she is being followed. Her cardiac enzymes and ECG can be followed. An echocardiogram can be requested to evaluate left ventricular wall motion and systolic function. However it is felt she should proceed with her evaluation with diagnostic cardiac catheterization. The procedure and risks were discussed with her. She was agreeable to this approach. 2. CAD status post PCI-remote She does have a history of previous PCI as noted above. At the moment there are concerns as to whether she has had progression of CAD in her PCI distribution versus another distribution. She will continue medical management. She will proceed with noninvasive and invasive evaluation as noted. 3. Valvular heart disease She has a history of valvular heart disease. It would not be unreasonable to reassess her valvular anatomy and physiology with a transthoracic echocardiogram. 4. Hyperlipidemia She will continue risk factor evaluation care. 5. Hypertension Her blood pressures can be followed and she will continue medical management. Comment: The patient's case was discussed and reviewed with the patient and previously with the [facility] emergency department staff. This note was generated using a voice recognition system and there may be incorrect words, spelling or punctuation that were not noted when reviewing the office note prior to saving. Procedure Criteria Procedure Type: Elective COVID Risk Discussion: The surgeon/proceduralist and patient have discussed in detail the risk of exposure to and/or potential harm posed by the COVID-19 virus with having a surgery/procedure at this time versus the risk of delaying the surgery/procedure. It is not possible to know either the risk of delaying the surgery or procedure or chance of getting an infection with perfect accuracy, but a joint decision was made between the patient and the surgeon/proceduralist to proceed at this time with the scheduled surgery/procedure as indicated on the consent form.
--- NOTE | 2020-04-13 20:23 | ECHOD_ITS ---
Reason For Study: Chest pain Procedure This was a 2D Doppler, Color Flow transthoracic echocardiogram. The study was technically difficult. Exam performed portable in patient room. Left Ventricle Normal LV size. Moderate to severe concentric left ventricular hypertrophy. Left ventricular systolic function is normal. The estimated ejection fraction is 55 %. Diastolic function is indeterminate. No regional wall motion abnormalities noted. Right Ventricle Normal RV size. Normal systolic function. Atria The left atrium is mildly enlarged. Normal right atrium. Prominent eustachian valve. Color-flow Doppler compatible with a left to right interatrial shunt compatible with a small PFO versus ASD. Bubble contrast study negative for right to left interatrial shunt. Mitral Valve There is no mitral annular calcification. Anterior leaflet diffuse mitral valve thickening. Trivial mitral valve insufficiency. Tricuspid Valve Normal tricuspid valve. Mild tricuspid valve insufficiency. Right ventricular systolic pressure estimated to be 30 mmHg. Aortic Valve Trisinus/trileaflet aortic valve. Mild diffuse aortic valve thickening. Moderate focal aortic valve calcification. Mild aortic stenosis. Mild (1+) aortic valve insufficiency. Pulmonic Valve The pulmonic valve is not well visualized. Great Vessels Normal sized aortic root. Pericardium/Pleural No pericardial effusion. Medication Performed a rapid injection of agitated mix of 9 cc saline and 1cc air to assess for atrial septal defect. MMode/2D Measurements & Calculations LVIDd: 4.0 cm IVSd: 1.8 cm LVOT diam: 2.1 cm LVIDs: 2.7 cm LVPWd: 1.4 cm RVDd: 3.2 cm FS: 31.7 % LVOT area: 3.4 cm2 Ao root diam: 2.8 cm LAV(MOD-bp): 56.5 ml LVAd ap4: 28.9 cm2 LAV(MOD-bp) Indexed: 33.6 ml/m2 EDV(MOD-sp4): 87.0 ml LAV(MOD-sp2): 47.4 ml EDV(sp4-el): 91.7 ml LAV(MOD-sp4): 60.9 ml LVAs ap4: 17.5 cm2 ESV(MOD-sp4): 40.1 ml ESV(sp4-el): 39.8 ml EF(MOD-sp4): 53.8 % EF(sp4-el): 56.6 % SV(MOD-sp4): 46.8 ml SV(sp4-el): 51.9 ml LA A4 area: 19.8 cm2 LA dimension(2D): 3.4 cm RA A4 area: 15.4 cm2 Doppler Measurements & Calculations MV E max ventura: 73.4 cm/sec Lat Peak E' [place]: 6.1 cm/sec Med Peak E' [place]: 5.6 cm/sec MV A max ventura: 89.1 cm/sec E/E' lat: 12.1 E/E' med: 13.1 MV E/A: 0.82 Ao V2 max: 246.1 cm/sec AI max ventura: 473.8 cm/sec LV V1 max: 131.6 cm/sec Ao max P.4 mmHg AI max P.8 mmHg LV V1 max P.9 mmHg Ao V2 mean: 175.7 cm/sec LV V1 mean P.8 mmHg Ao mean P.8 mmHg AI dec slope: 217.5 cm/sec2 LV V1 mean: 77.1 cm/sec Ao V2 VTI: 56.5 cm AI P1/2t: 638.1 msec LV V1 VTI: 25.3 cm ADRY(I,D): 1.5 cm2 ADRY(V,D): 1.8 cm2 SV(LVOT): 85.1 ml PA V2 max: 109.6 cm/sec TR max ventura: 234.8 cm/sec TR max P.1 mmHg Interpretation Summary The study was technically difficult. Left ventricular systolic function is normal. The estimated ejection fraction is 55 %. Moderate to severe concentric left ventricular hypertrophy. The left atrium is mildly enlarged. Prominent eustachian valve. Anterior leaflet diffuse mitral valve thickening. Trivial mitral valve insufficiency. Mild tricuspid valve insufficiency. Mild aortic stenosis. Mild (1+) aortic valve insufficiency. Right ventricular systolic pressure estimated to be 30 mmHg. Diastolic function is indeterminate. Color-flow Doppler compatible with a left to right interatrial shunt compatible with a small PFO versus ASD. Bubble contrast study negative for right to left interatrial shunt. Ordering Physician: Feliz Clancy Performed By: Mechelle Abdul RDCS
[2020-04-13] MEDS: 0.9% Normal Saline 1,000 ML 60 ML IV (20:58)
[2020-04-13] MEDS: 0.9% Saline Lock 10 ML Syringe IV (20:58)
[2020-04-13] MEDS: Atorvastatin Calcium 80 MG Tablet PO (21:00)
--- NOTE | 2020-04-13 22:33 | EKG12_ITS ---
Test Reason : CP Blood Pressure : / mmHG Vent. Rate : 051 BPM Atrial Rate : 051 BPM P-R Int : 178 ms QRS Dur : 076 ms QT Int : 306 ms P-R-T Axes : 055 056 171 degrees QTc Int : 282 ms Sinus bradycardia Nonspecific ST and T wave abnormality Abnormal ECG When compared with ECG of 13-APR-2020 16:14, MANUAL COMPARISON REQUIRED, DATA IS UNCONFIRMED Confirmed by JOSE MOYA ([id number]), news analyst GRIS REYEZ ([id number]) on 04/16/2020 10:36:36 AM Referred By: OBEY VAZ Confirmed By:JOSE MOYA
[2020-04-13 23:03] VITALS: PULSE 48
[2020-04-14] VITALS (16 sets, daily range): BP systolic 142–191; BP diastolic 69–86; PULSE 18–68; RESP 16–18; TEMP 36.6–37.1; O2SAT 97–100
--- NOTE | 2020-04-14 01:01 | NURSING ---
Rec'd report from JOANA Muir. This RN taking over pt care at this time. JOANA Petty
--- NOTE | 2020-04-14 05:55 | EKG12_ITS ---
Test Reason : AMEKG Blood Pressure : / mmHG Vent. Rate : 050 BPM Atrial Rate : 050 BPM P-R Int : 194 ms QRS Dur : 080 ms QT Int : 466 ms P-R-T Axes : 039 027 086 degrees QTc Int : 424 ms Sinus bradycardia Nonspecific ST and T wave abnormality Abnormal ECG When compared with ECG of 13-APR-2020 19:31, MANUAL COMPARISON REQUIRED, DATA IS UNCONFIRMED Confirmed by JOSE MOYA ([id number]), assignment editor GRIS REYEZ ([id number]) on 04/16/2020 10:38:47 AM Referred By: ТАТЬЯНА Confirmed By:JOSE MOYA
[2020-04-14] MEDS: Atenolol 25 MG Tablet PO (06:14)
[2020-04-14] MEDS: Aspirin E.C. 81 MG Tablet PO (06:14)
[2020-04-14] MEDS: Clopidogrel Bisulfate 75 MG Tablet PO (06:14)
[2020-04-14] MEDS: Ramipril 10 MG Capsule 20 MG PO (06:14)
--- NOTE | 2020-04-14 10:22 | CL.D_ITS ---
Patient Name: MARIAELENA STEPHENSON Study Date: 04/14/2020 Performing: Feliz Clancy MD Ht: 66.92 inches 170 cm : 1960 Wt: 130.07 lbs 59 kg Age: 59 Gender: female BSA: 1.68 PROCEDURE(S) PERFORMED EX89-WDW/COR/LV CLINICAL PROFILE AND INDICATIONS Indications: Worsening Angina, Suspected CAD Heart Failure: None Stress/Imaging Stress Test w/SPECT MPI: Yes Result: PositiveStress Test with SPECT MPI: Positive Angina Classification Anginal Classification w/in 2 Weeks: CCS III CAD Presentations: Stable angina. CONCLUSIONS Elevated Left Ventricular End Diastolic Pressure Normal LV size, wall motion,and systolic function LVEF: by LV gram 60 % [place] Multivessel CAD RECOMMENDATIONS Risk factor modification Medical therapy DESCRIPTION OF PROCEDURE The patient arrived to the procedure lab. The risks and benefits of the procedure as well as a full d escription of our services here and current unavailability of surgical backup were fully explained to the patient and/or their significant other prior to the catheterization. The Timeout was completed, verifying the correct patient and procedure. The patient's procedural site was prepped and draped in the usual fashion. Local anesthetic was given subcutaneously to right groin region with Lidocaine 2%. Using a modified Seldinger technique, arterial access was obtained via the right femoral artery, a 4 Fr sheath was inserted Left Coronary Artery selective angiography was performed in multiple views us ing a 4 Fr. JL5 catheter. Right Coronary Artery selective angiography was then performed in multiple views using a 4 Fr. 3DRC catheter. Left Ventriculography was performed in MARTINEZ projection using a 4 Fr . Pigtail catheter. LV to AO pullback pressures were then recorded. CORONARY ANGIOGRAPHY DOMINANCE: Right Dominant LEFT HEART ASSESSMENT Left Ventricular Ejection Fraction: by LV Gram 60 % Normal LV wall motion Elevated Left Ventricular End Diastolic Pressure LVEDP: 24 mmHg LEFT MAIN: Angiographically normal LEFT ANTERIOR DESCENDING ARTERY: Mild luminal irregularities PROX LAD: Mild calcification MID LAD: eccentric: 10 - 25 % Stenosis CIRCUMFLEX ARTERY: Mild luminal irregularities PROX CIRC: ectatic /aneuyrsmal segment MID CIRC: ectatic / aneurysmal segment, Previously placed stent is patent RIGHT CORONARY ARTERY: Mild calcification Mild luminal irregularities MID RCA: eccentric: 10 25 % Stenosis RT PDA: Proximal - eccentric: smooth: 25 % Stenosis AORTIC ROOT: Angiographically normal COMPLICATIONS No Complications PROCEDURE MEDICATIONS Versed 1 mg IV Oxygen: 2 L/min via nasal cannula Nitro glycerin 25mg / 250ml D5W @ 5 mcg/min IV started 04/14/2020 10:21:03 SUMMARY OF HEMODYNAMIC DATA Time AIR REST ECG 09:33:14 AO 192/86 (125) SA 09:46:25 LV 214/0, 23 09:53:33 LV 214/-5, 24 09:53:39 LV 223/-1, 24 09:54:37 LVp 224/-5, 25 09:54:40 AOp 207/83 (122) 09:54:45 Signed By Feliz Clancy MD On 04/14/2020 10:21:44 Feliz Clancy MD
[2020-04-14] MEDS: Ondansetron 4 MG/2 ML Vial IV (11:36)
[2020-04-14] MEDS: 0.9% Saline Lock 10 ML Syringe IV (11:36)
[2020-04-14] MEDS: Pantoprazole Sodium 40 MG Tablet PO (12:02)
[2020-04-14] MEDS: amLODIPine 10 MG Tablet PO (12:02)
[2020-04-14] MEDS: Escitalopram Oxalate 10 MG Tablet PO (12:02)
[2020-04-14] MEDS: Pramipexole Di-HCl 0.125 MG Tablet PO (12:02)
[2020-04-14] MEDS: 0.9% Normal Saline 1,000 ML 75 ML IV (12:03)
--- NOTE | 2020-04-14 12:50 | PCM.PN.HOSP ---
<Danilo Harris - Last Filed: 04/14/20 13:02> Patient Problems: Active and Suspected Problems (Last Updated 04/14/20 @ 12:30 by Isabela Harding) Chest pain (Acute) Accelerating angina (Acute) Reason for Visit: CP Subjective: Pt seen and examined prior to cath. Ongoing CP/heaviness overnight with SOB. Severe headache with nitro, however this was used this AM as BPs were uncontrolled. Pt had mild multivessel CAD on heart cath and no stents were placed. Vitals/I&O's: Vital Signs Temp Pulse Resp BP Pulse Ox 98.3 F 58 L 18 152/76 H 100 04/14/20 12:00 04/14/20 12:15 04/14/20 12:15 04/14/20 12:15 04/14/20 12:15 Oxygen Delivery Method Room Air Weight: 129 lb 9.6 oz Body Mass Index (BMI) 20.2 Intake and Output for Last 24 Hours 04/12/20 04/13/20 04/14/20 23:59 23:59 23:59 Intake Total 1266 / 1266 Output Total 0 / 0 Balance 1266 / 1266 General: Alert, Oriented x3, Cooperative HEENT: Atraumatic, PERRLA, EOMI, Normocephalic Neck: Supple, No JVD, Negative Carotid Bruits Lungs: Clear to auscultation, Normal air movement Cardiovascular: Regular rate, Murmur - 3/6 RSB, 2nd ICS radiating into R neck Abdomen: Bowel Sounds Present, Soft, Non Tender Extremities: No edema, Capillary Refill Less than 3 Seconds Skin: No rashes, No breakdown Musculoskeletal: No Tenderness to Palpation of Joints or Extremities Neurological: Cranial nerves II-XII grossly intact Psych/Mental Status: Normal Affect, Appropriate, Alert and oriented to time, place, person, mood and affect Laboratory Results 04/13/20 16:10: WBC 6.6, RBC 3.81 L, Hgb 11.6 L, Hct 35.9 L, MCV 94.2, MCH 30.4, MCHC 32.3, RDW Std Deviation 43.4, RDW Coeff of Ace 12.6, Plt Count 279, MPV 10.7, Immature Gran % (Auto) 0.500, Neut % (Auto) 64.4, Lymph % (Auto) 23.9, [place] % (Auto) 8.3, Eos % (Auto) 2.1, Baso % (Auto) 0.8, Absolute Neuts (auto) 4.3, Absolute Lymphs (auto) 1.58, Nucleated RBC % 0 04/13/20 16:10: Sodium 143, Potassium 3.7, Chloride 110 H, Carbon Dioxide 29.0, Anion Gap 4 L, BUN 12, Creatinine 0.63, Estim Creat Clear Calc 87.93, Est GFR (MDRD) Af Amer 124, Est GFR (MDRD) Non-Af 102, BUN/Creatinine Ratio 19.1, Glucose 134 H, Calcium 9.5, Troponin I < 0.015 04/13/20 16:10: PT 13.0, INR 1.0 04/13/20 19:07: Troponin I < 0.015 04/13/20 22:30: Troponin I < 0.015 Current Medications Acetaminophen (Tylenol) 650 mg PO Q6H PRN PRN PRN Reason: Pain Score 1-10/Temp > 100.7 F Amlodipine Besylate (Norvasc) 10 mg PO DAILY [facility] Last Admin: 04/14/20 12:02 Dose: 10 mg Documented by: Aspirin (Ecotrin) 81 mg PO DAILY@0800 [facility] Last Admin: 04/14/20 06:14 Dose: 81 mg Documented by: Atenolol (Tenormin (Beta Zeina)) 25 mg PO DAILY [facility] Last Admin: 04/14/20 06:14 Dose: 25 mg Documented by: Atorvastatin Calcium (Lipitor) 80 mg PO QHS [facility] Last Admin: 04/13/20 21:00 Dose: 80 mg Documented by: Escitalopram Oxalate (Lexapro) 10 mg PO DAILY [facility] Last Admin: 04/14/20 12:02 Dose: 10 mg Documented by: Heparin Sodium (Beef Lung) (Heparin 500 Unit/5 Ml (100/Ml)) 500 unit IV UD PRN PRN Reason: HEPARIN FLUSH Hydralazine HCl (Apresoline Iv) 10 mg IV Q6H PRN PRN PRN Reason: for SBP>160 Sodium Chloride () 1,000 mls @ 60 mls/hr IV .[id number] [facility] Last Infusion: 04/14/20 09:24 Dose: 0 mls/hr Documented by: Sodium Chloride () 1,000 mls @ 0 mls/hr IV .Q0M [facility] Sodium Chloride () 1,000 mls @ 75 mls/hr IV .[id number] [facility] Stop: 04/14/20 14:09 Last Admin: 04/14/20 12:03 Dose: 75 mls/hr Documented by: Labetalol HCl (Trandate) 5 mg IV X1 PRN PRN Reason: SBP > 160 prior to sheath pull Nitroglycerin (Nitrostat) 0.4 mg SUBLINGUAL Q5M PRN PRN Reason: CARDIAC/CHEST PAIN Ondansetron HCl (Zofran) 4 mg IV Q8H PRN PRN PRN Reason: NAUSEA/VOMITING Last Admin: 04/14/20 11:36 Dose: 4 mg Documented by: Pantoprazole Sodium (Protonix) 40 mg PO DAILY [facility] Last Admin: 04/14/20 12:02 Dose: 40 mg Documented by: Pramipexole Dihydrochloride (Mirapex) 0.125 mg PO TID [facility] Last Admin: 04/14/20 12:02 Dose: 0.125 mg Documented by: Ramipril (Altace) 20 mg PO DAILY [facility] Last Admin: 04/14/20 06:14 Dose: 20 mg Documented by: Senna/Docusate Sodium (Senokot-S, Naty-Colace) 2 tablet PO BID PRN PRN PRN Reason: Constipation Sodium Chloride () 10 - 40 ml IV UD PRN PRN Reason: SALINE FLUSH Last Admin: 04/14/20 11:36 Dose: 10 ml Documented by: Zolpidem Tartrate (Ambien (Generic)) 5 mg PO QHS PRN PRN PRN Reason: INSOMNIA STROKE Vital Signs/Narrative: Vital Signs Temp Pulse Resp BP Pulse Ox 04/14/20 12:15 58 L 18 152/76 H 100 04/14/20 12:00 98.3 F 57 L 18 153/73 H 100 04/14/20 11:45 59 L 18 143/78 H 100 04/14/20 11:30 98.3 F 58 L 18 160/72 H 98 Medical Necessity - Tobacco Use Smoking Status: Current every day smoker Tobacco Use: Cigarettes Assessment/Plan All Active Problems (Last Updated 04/14/20 @ 12:30 by Isabela Harding) Chest pain (Acute) Accelerating angina (Acute) 1. Chest pain, CAD - mild multivessel disease per cath today. No stent placed. Continue care as per cardiology. Echo pending. 2. CAD - prior stent 2007-circumflex. She is currently treated with aspirin, atenolol, plavix, ramipril, atorvastatin 3. HTN - poorly controlled. PRN hydralazine, norvasc, atenolol, ramipril 4. HLD - statin 5 Nicotine abuse - it is imperative that she completely stop smoking. She is still smoking 1/2 ppd. she has smoked since age 13. 6. Anx/Depression - lexapro 7. GERD - on PPI 8. Hx Aortic valve disease - no recent echo. repeat pending. loud murmur on exam. DVT ppx: lovenox This patient was seen by Danilo Harris PA-C under the supervision of Doctor Deon <Brennan Chavarria - Last Filed: 04/14/20 17:10> Reason for Visit: Follow-up for chest pain and hypertensive emergency. Objective: Seen and examined. Patient had high blood pressure 195/68, 191/83. Patient has been having chest pain and shortness of breath with exertion for last 2 days. Physical exam General: Alert, Oriented x3, Cooperative HEENT: Atraumatic, PERRLA, EOMI, Normocephalic Oral: No Gingival or Mucosal Lesions/ Ulcerations Neck: Supple, No JVD, Negative Carotid Bruits Lungs: Air entry diminished in bilateral lung bases. No crepitation/rhonchi Cardiovascular: Regular rate, Regular Rhythm, Normal S1, Normal S2, ejection systolic and diastolic murmur present over right second intercostal space. Abdomen: Bowel Sounds Present, Soft, Non Tender, Non-Distended : No renal angle tenderness. No suprapubic tenderness. Extremities: No edema, Capillary Refill Less than 3 Seconds Skin: No rashes, No breakdown Musculoskeletal: No Tenderness to Palpation of Joints or Extremities Neurological: Cranial nerves II-XII grossly intact, Deep Tendon Reflexes 2+/4 and Symmetrical, Neuro grossly intact Psych/Mental Status: Normal Affect, Appropriate. Vitals/I&O's: Vital Signs Temp Pulse Resp BP Pulse Ox 98.1 F 61 18 157/76 H 99 04/14/20 15:35 04/14/20 15:35 04/14/20 15:35 04/14/20 15:35 04/14/20 15:35 Oxygen Delivery Method Room Air Weight: 129 lb 9.6 oz Body Mass Index (BMI) 20.2 Intake and Output for Last 24 Hours 04/12/20 04/13/20 04/14/20 23:59 23:59 23:59 Intake Total 1266 / 1266 Output Total 0 / 0 Balance 1266 / 1266 Laboratory Results 04/13/20 16:10: WBC 6.6, RBC 3.81 L, Hgb 11.6 L, Hct 35.9 L, MCV 94.2, MCH 30.4, MCHC 32.3, RDW Std Deviation 43.4, RDW Coeff of Ace 12.6, Plt Count 279, MPV 10.7, Immature Gran % (Auto) 0.500, Neut % (Auto) 64.4, Lymph % (Auto) 23.9, [place] % (Auto) 8.3, Eos % (Auto) 2.1, Baso % (Auto) 0.8, Absolute Neuts (auto) 4.3, Absolute Lymphs (auto) 1.58, Nucleated RBC % 0 04/13/20 16:10: Sodium 143, Potassium 3.7, Chloride 110 H, Carbon Dioxide 29.0, Anion Gap 4 L, BUN 12, Creatinine 0.63, Estim Creat Clear Calc 87.93, Est GFR (MDRD) Af Amer 124, Est GFR (MDRD) Non-Af 102, BUN/Creatinine Ratio 19.1, Glucose 134 H, Calcium 9.5, Troponin I < 0.015 04/13/20 16:10: PT 13.0, INR 1.0 04/13/20 19:07: Troponin I < 0.015 04/13/20 22:30: Troponin I < 0.015 Current Medications Acetaminophen (Tylenol) 650 mg PO Q6H PRN PRN PRN Reason: Pain Score 1-10/Temp > 100.7 F Last Admin: 04/14/20 15:31 Dose: 650 mg Documented by: Amlodipine Besylate (Norvasc) 10 mg PO DAILY [facility] Last Admin: 04/14/20 12:02 Dose: 10 mg Documented by: Aspirin (Ecotrin) 81 mg PO DAILY@0800 [facility] Last Admin: 04/14/20 06:14 Dose: 81 mg Documented by: Atenolol (Tenormin (Beta Zeina)) 25 mg PO DAILY [facility] Last Admin: 04/14/20 06:14 Dose: 25 mg Documented by: Atorvastatin Calcium (Lipitor) 80 mg PO QHS [facility] Last Admin: 04/13/20 21:00 Dose: 80 mg Documented by: Escitalopram Oxalate (Lexapro) 10 mg PO DAILY [facility] Last Admin: 04/14/20 12:02 Dose: 10 mg Documented by: Heparin Sodium (Beef Lung) (Heparin 500 Unit/5 Ml (100/Ml)) 500 unit IV UD PRN PRN Reason: HEPARIN FLUSH Hydralazine HCl (Apresoline Iv) 10 mg IV Q6H PRN PRN PRN Reason: for SBP>160 Sodium Chloride () 1,000 mls @ 60 mls/hr IV .[id number] [facility] Last Admin: 04/14/20 15:32 Dose: 60 mls/hr Documented by: Sodium Chloride () 1,000 mls @ 0 mls/hr IV .Q0M [facility] Labetalol HCl (Trandate) 5 mg IV X1 PRN PRN Reason: SBP > 160 prior to sheath pull Nitroglycerin (Nitrostat) 0.4 mg SUBLINGUAL Q5M PRN PRN Reason: CARDIAC/CHEST PAIN Ondansetron HCl (Zofran) 4 mg IV Q8H PRN PRN PRN Reason: NAUSEA/VOMITING Last Admin: 04/14/20 11:36 Dose: 4 mg Documented by: Pantoprazole Sodium (Protonix) 40 mg PO DAILY [facility] Last Admin: 04/14/20 12:02 Dose: 40 mg Documented by: Pramipexole Dihydrochloride (Mirapex) 0.125 mg PO TID [facility] Last Admin: 04/14/20 12:02 Dose: 0.125 mg Documented by: Ramipril (Altace) 20 mg PO DAILY [facility] Last Admin: 04/14/20 06:14 Dose: 20 mg Documented by: Senna/Docusate Sodium (Senokot-S, Naty-Colace) 2 tablet PO BID PRN PRN PRN Reason: Constipation Sodium Chloride () 10 - 40 ml IV UD PRN PRN Reason: SALINE FLUSH Last Admin: 04/14/20 11:36 Dose: 10 ml Documented by: Zolpidem Tartrate (Ambien (Generic)) 5 mg PO QHS PRN PRN PRN Reason: INSOMNIA STROKE Vital Signs/Narrative: Vital Signs Temp Pulse Resp BP Pulse Ox 04/14/20 15:35 98.1 F 61 18 157/76 H 99 04/14/20 15:15 18 L 159/77 H 99 04/14/20 15:00 59 L 04/14/20 14:15 60 157/76 H 100 04/14/20 13:15 54 L 157/69 H 99 04/14/20 12:45 58 L 142/77 H 100 Assessment/Plan This patient was seen in conjunction with Danilo NORTH. I have independently interviewed and examined the patient and reviewed pertinent history, examination findings, laboratory and plan of management. I have reviewed the note and agree with the documented findings with the few additional points. In brief, patient is admitted for chest pain along with exertional shortness of breath for 2 days prior to admission. Serial troponin enzymes are negative. Patient had abnormal stress test reported on April 09, 2020 with mild naty-infarct related myocardial ischemia with previous myocardial infarction. Subsequently patient had cardiac catheter today. Cardiac cath shows EF 60% by LV EF. Normal LV size, wall motion and systolic function. Mild coronary atherosclerosis the range of 10 to 25%. Patient was on IV nitroglycerin drip for hypertensive emergency in the [facility]. Nitroglycerin drip was discontinued. Current blood pressure is 157/76. Other comorbidities including coronary artery disease status post stent in 2007, hypertension, dyslipidemia, nicotine use anxiety and depression and GERD as mentioned above. 2D echo ordered for tomorrow for systolic and diastolic murmur probably aortic stenosis plus AR suggestive of valvular heart disease. Anticipate discharge tomorrow a.m. I have discussed my assessment with Danilo NORTH and orders have been reviewed. Inpatient E&M: 62541 Subs Hosp L2
[2020-04-14] MEDS: Acetaminophen 325 MG Tablet 650 MG PO (15:31)
[2020-04-14] MEDS: 0.9% Normal Saline 1,000 ML 60 ML IV (15:32)
--- NOTE | 2020-04-14 17:34 | PCM.PN.CARD ---
Subjectve: The patient underwent diagnostic cardiac catheterization earlier this day. Following her cardiac catheterization she appeared to be resting comfortably in no acute distress. Objective: Vital Signs Temp Pulse Resp BP Pulse Ox 98.1 F 61 18 157/76 H 99 04/14/20 15:35 04/14/20 15:35 04/14/20 15:35 04/14/20 15:35 04/14/20 15:35 Oxygen Delivery Method Room Air Weight: 129 lb 9.6 oz Body Mass Index (BMI) 20.2 Intake and Output for Last 24 Hours 04/12/20 04/13/20 04/14/20 23:59 23:59 23:59 Intake Total 1626 / 1626 Output Total 0 / 0 Balance 1626 / 1626 General: Awake, Alert, Oriented x 3, Cooperative, No Acute Distress HEENT: Atraumatic, Normocephalic, PERRL, EOMI, Sclera Non Icteric Neck: Supple, Good ROM, No JVD Lungs: Clear to auscultation Cardiovascular: Regular Rhythm, Normal S1, Normal S2 Murmur Murmur: Grade 3/6, Harsh, Mid Systolic, LLSB, LVOT, Sternal Notch Vascular: Normal Femoral Pulses Abdomen: Bowel Sounds Present, Soft, Non Tender Extremities: No edema Neurological: No Focal Motor or Sensory Deficit Psych/Mental Status: Appropriate 04/13/20 16:10: PT 13.0, INR 1.0 04/13/20 19:07: Troponin I < 0.015 04/13/20 22:30: Troponin I < 0.015 Rhythm: Sinus rhythm; PVCs EKG: Sinus bradycardia; nonspecific ST/T wave abnormality; no acute changes compared to the previous ECG Cardiac Cath: CONCLUSIONS Elevated Left Ventricular End Diastolic Pressure Normal LV size, wall motion,and systolic function LVEF: by LV gram 60 % [place] Multivessel CAD RECOMMENDATIONS Risk factor modification Medical therapy CORONARY ANGIOGRAPHY DOMINANCE: Right Dominant LEFT HEART ASSESSMENT Left Ventricular Ejection Fraction: by LV Gram 60 % Normal LV wall motion Elevated Left Ventricular End Diastolic Pressure LVEDP: 24 mmHg LEFT MAIN: Angiographically normal LEFT ANTERIOR DESCENDING ARTERY: Mild luminal irregularities PROX LAD: Mild calcification MID LAD: eccentric: 10 - 25 % Stenosis CIRCUMFLEX ARTERY: Mild luminal irregularities PROX CIRC: ectatic /aneuyrsmal segment MID CIRC: ectatic / aneurysmal segment, Previously placed stent is patent RIGHT CORONARY ARTERY: Mild calcification Mild luminal irregularities MID RCA: eccentric: 10 25 % Stenosis RT PDA: Proximal - eccentric: smooth: 25 % Stenosis AORTIC ROOT: Angiographically normal Medical Necessity - Tobacco Use Smoking Status: Current every day smoker Tobacco Use: Cigarettes Assessment/Plan 1. Accelerating angina pectoris The patient presents with concerns of accelerating angina pectoris. She has a history of underlying CAD. She has recently undergone an exercise tolerance test/imaging study with findings as noted: Raising concerns of possible previous [place] with denise-TN related ischemia. Her cardiac enzymes have remained negative. Her ECG demonstrated no new acute changes. She did undergo further evaluation with diagnostic cardiac catheterization. The report is as noted. In brief her coronary arteries were patent with no angiographically significant appearing CAD. She did not require additional revascularization therapy. Thus there is concerned that her symptoms are not related to her CAD process and potentially related to her marked hypertension that was noted during her cardiac catheterization procedure. At the same time she may need to continue non-CAD/noncardiac evaluation of her discomforts. 2. CAD status post PCI-remote She does have a history of previous PCI as noted above. She has undergone evaluation care as noted above. At the moment her coronary arteries are patent with no angiographically significant appearing CAD to explain her symptoms or her findings. She will need to continue risk factor modification medical management. 3. Valvular heart disease She has a history of valvular heart disease. She will continue evaluation with a transthoracic echocardiogram. 4. Hyperlipidemia She will continue risk factor evaluation care. 5. Hypertension Her blood pressures were noted to be markedly elevated during her cardiac catheterization procedure. This raises concern as to whether or not this is what she has been experiencing with respect to her symptoms versus non-CAD/noncardiac etiologies. At the present time an attempt is being made to adjust her antihypertensive therapy to bring her blood pressure under better control. In the cardiac catheterization laboratory she received hydralazine 20 mg IV push total as well as the transient use of IV nitroglycerin to bring her blood pressures down so that her cardiac catheterization sheath could be removed safely with decreased risks of bleeding related issues. Her oral antihypertensive therapy regimen is being adjusted as well attempt to bring her blood pressure under better control. This note was generated using a voice recognition system and there may be incorrect words, spelling or punctuation that were not noted when reviewing the office note prior to saving.
[2020-04-14] MEDS: hydroCHLOROthiazide 25 MG Tablet PO (20:20)
[2020-04-14] MEDS: Atorvastatin Calcium 80 MG Tablet PO (21:22)
[2020-04-14] MEDS: traMADol 50 MG Tablet PO (21:24)
[2020-04-15 02:59] VITALS: PULSE 54
[2020-04-15] MEDS: Acetaminophen 325 MG Tablet 650 MG PO (03:22)
[2020-04-15 03:25] VITALS: BP 155/79; PULSE 61; RESP 16; TEMP 36.8; O2SAT 95
[2020-04-15 06:25] LABS: Absolute Lymphocyte Count 1.19 X10^3/uL (0.83-4.51); Absolute Neutrophil Count 4.6 X10^3/uL (2.0-7.7); Basophil# 0.03 X10^3/uL; Basophil% 0.5 % (0-1); Eosinophil# 0.14 X10^3/uL; Eosinophils% 2.1 % (0-5); Hemoglobin 12.5 g/dL (12.0-15.0); Lymphocyte # 1.19 X10^3/ul (4.0); Lymphocyte % 18.3 % (19-41); Mean Corp Hgb Conc 32.1 g/dL (32-36); Mean Corpuscular Volume 93.8 fL (81-99); Mean Platelet Vol. 10.4 fl (6.2-12.0); Monocyte# 0.57 X10^3/uL; Monocyte% 8.7 % (0-10); NRBC Flagged by Analyzer 0 % (0-5); Neutrophil # 4.57 X10^3/uL (2.7-7.7); Neutrophil % 70.1 % (47-70); Platelet Count 287 K/mm3 (150-450); RBC Distribution Width CV 12.6 % (11.6-14.6); RBC Distribution Width SD 43.6 fl (35.1-43.9); Red Blood Count 4.16 M/mm3 (4.2-5.4); White Blood Count 6.5 K/mm3 (4.4-11.0)
[2020-04-15] MEDS: 0.9% Normal Saline 1,000 ML 60 ML IV (06:31)
[2020-04-15 07:00] VITALS: PULSE 56
[2020-04-15 07:00] LABS: Anion Gap 6 (5-15); BUN 8 mg/dL (7-18); BUN/Creat Ratio 12.4 RATIO (10-20); Calcium,Total 8.8 mg/dL (8.5-10.1); Chloride 103 mmol/L (98-107); Creatinine, Serum 0.64 mg/dL (0.55-1.02); EST Glomerular Filtration Rate 99 mL/min (>60); Est Glom Filt Rate - Afr Amer 120 mL/min (>60); Estimated Creatinine Clearance 85.67 ml/min; Glucose 101 mg/dL (74-106); Potassium 3.3 mmol/L (3.5-5.1); Sodium Level 137 mmol/L (136-145)
--- NOTE | 2020-04-15 07:58 | PN.CARD_ITS ---
Subjectve: The patient is awake and alert. She has been up and ambulating. She states her main concern at this time continues to be her longstanding epigastric discomfort that radiates up into her chest and takes her breath away. She states this is similar to symptoms she had prior to a previous endoscopy where she was told she might have a ulcer . Objective: Vital Signs Temp Pulse Resp BP Pulse Ox 98.2 F 56 L 16 155/79 H 95 04/15/20 03:25 04/15/20 07:00 04/15/20 03:25 04/15/20 03:25 04/15/20 03:25 Oxygen Delivery Method Room Air Weight: 129 lb 9.6 oz Body Mass Index (BMI) 20.2 Intake and Output for Last 24 Hours 04/13/20 04/14/20 04/15/20 23:59 23:59 23:59 Intake Total 2408.5 / 2408.5 1896.5 / 1896.5 Output Total 0 / 0 Balance 2408.5 / 2408.5 1896.5 / 1896.5 General: Awake, Alert, Oriented x 3, Cooperative, No Acute Distress HEENT: Atraumatic, Normocephalic, PERRL, EOMI, Sclera Non Icteric Neck: Supple, Good ROM, No JVD Lungs: Clear to auscultation Cardiovascular: Regular Rhythm, Normal S1, Normal S2 Murmur Murmur: Grade 3/6, Harsh, Mid Systolic, LLSB, LVOT, Sternal Notch Abdomen: Bowel Sounds Present, Soft Extremities: No edema Neurological: No Focal Motor or Sensory Deficit Psych/Mental Status: Appropriate 04/15/20 06:08: WBC 6.5, RBC 4.16 L, Hgb 12.5, Hct 39.0, MCV 93.8, MCH 30.0, MCHC 32.1, Plt Count 287, MPV 10.4, Immature Gran % (Auto) 0.300, Neut % (Auto) 70.1 H, Lymph % (Auto) 18.3 L, [place] % (Auto) 8.7, Eos % (Auto) 2.1, Baso % (Auto) 0.5, Absolute Neuts (auto) 4.6, Nucleated RBC % 0 04/15/20 06:08: Sodium 137, Potassium 3.3 L, Chloride 103, Carbon Dioxide 28.0, Anion Gap 6, BUN 8, Creatinine 0.64, Est GFR (MDRD) Af Amer 120, Est GFR (MDRD) Non-Af 99, BUN/Creatinine Ratio 12.4, Glucose 101, Calcium 8.8 Rhythm: Sinus rhythm; PVCs; transient ventricular bigeminy Medical Necessity - Tobacco Use Smoking Status: Current every day smoker Tobacco Use: Cigarettes Assessment/Plan 1. Accelerating angina pectoris The patient presents with concerns of accelerating angina pectoris. She has a history of underlying CAD. She has recently undergone an exercise tolerance test/imaging study with findings as noted: Raising concerns of possible previous [place] with denise-OK related ischemia. Her cardiac enzymes have remained negative. Her ECG demonstrated no new acute changes. She did undergo further evaluation with diagnostic cardiac catheterization. The report is as noted. In brief her coronary arteries were patent with no angiographically significant appearing CAD. She did not require additional revascularization therapy. Thus there is concerned that her symptoms are not related to her CAD process and potentially related to her marked hypertension that was noted during her cardiac catheterization procedure. At the same time she may need to continue non- CAD/noncardiac evaluation of her discomforts. 2. CAD status post PCI-remote She does have a history of previous PCI as noted above. She has undergone evaluation care as noted above. At the moment her coronary arteries are patent with no angiographically significant appearing CAD to explain her symptoms or her findings. She will need to continue risk factor modification medical management. 3. Valvular heart disease She has a history of valvular heart disease. She will continue evaluation with a transthoracic echocardiogram. 4. Hyperlipidemia She will continue risk factor evaluation care. 5. Hypertension Her blood pressures were noted to be markedly elevated during her cardiac catheterization procedure. This raises concern as to whether or not this is what she has been experiencing with respect to her symptoms versus non- CAD/noncardiac etiologies. She has initiated additional medical therapy with amlodipine. Her blood pressu res are somewhat improved. Overall, from a cardiac standpoint, she will continue to be monitored, continue evaluation with an echocardiogram based on her cardiac murmur to evaluate for any obvious underlying significant valvular heart related issues that require further evaluation and care, continue adjustment of her antihypertensive regimen to try and bring her blood pressures under better control, and she should also be considered for further noncardiac evaluation of her ongoing chest discomfort. This note was generated using a voice recognition system and there may be incorrect words, spelling or punctuation that were not noted when reviewing the office note prior to saving.
[2020-04-15 08:50] VITALS: BP 141/77; PULSE 61; RESP 16; TEMP 37.6; O2SAT 99
[2020-04-15] MEDS: Aspirin E.C. 81 MG Tablet PO (09:00)
[2020-04-15] MEDS: Ramipril 10 MG Capsule 20 MG PO (09:00)
[2020-04-15] MEDS: Escitalopram Oxalate 10 MG Tablet PO (09:01)
[2020-04-15] MEDS: amLODIPine 10 MG Tablet PO (09:01)
[2020-04-15] MEDS: Atenolol 25 MG Tablet PO (09:01)
[2020-04-15] MEDS: Pantoprazole Sodium 40 MG Tablet PO (09:01)
[2020-04-15] MEDS: hydroCHLOROthiazide 25 MG Tablet PO (09:07)
--- NOTE | 2020-04-15 11:25 | PCM.DC ---
- Discharge Diagnoses Current Active Problems: Current Active and Chronic Problems (Last Updated 04/14/20 @ 12:30 by Isabela Harding) Chest pain (Acute) Accelerating angina (Acute) Valvular heart disease (Chronic) You will use the following diet at home:: Cardiac Your food should be the consistency of: Regular Your liquids should be the consistency of: Regular/Thin Discharge Activity: Return to Normal Activity Weight Bearing Status: Weight bearing as tolerated Call your doctor if you observe: Shortness of breath, Dizziness, Fainting spells, Swelling in the ankles, - - chest pain Instructions: ED Chest Pain NonCardiac Allergies/Adverse Reactions: Allergies codeine Allergy (Intermediate, Verified 04/13/20 16:09) nausea and vomiting Medications to take at Discharge aspirin 81 mg tablet,delayed release 81 mg PO DAILY 07/09/19 Atenolol [Tenormin (beta tom)] 25 mg PO DAILY 11/04/19 Atorvastatin Calcium 80 mg PO QHS 11/04/19 Clopidogrel Bisulfate [Clopidogrel] 75 mg PO DAILY 11/04/19 Ramipril 20 mg PO DAILY 11/04/19 Escitalopram Oxalate [Lexapro] 10 mg PO DAILY 04/13/20 Niacin 500 mg PO DAILY 04/13/20 Pantoprazole Sodium [Protonix] 40 mg PO DAILY 04/13/20 Amlodipine [Norvasc] 10 mg PO DAILY #30 tab 04/15/20 The following prescriptions were given: Amlodipine [Norvasc] 10 mg PO DAILY #30 tab Transmission Status: Pending to [facility] Primary Care Physician: Cora Nguyễn MD [Primary Care Provider] - Please follow up with your Primary Care Physician in: 1-2 weeks Test Results: Test results from this visit will be discussed in further detail at your follow-up appointment, if applicable. Please Follow Up With: Feliz Clancy MD When: 1-2 weeks Proposed Discharge Date: 04/15/20
--- NOTE | 2020-04-15 11:29 | DS.PCM_ITS ---
Discharge Date and Diagnosis - Problem List Patient Problems: Active and Suspected Problems (Last Updated 04/14/20 @ 12:30 by Isabela Harding) Chest pain (Acute) Accelerating angina (Acute) Date of Admission: 04/13/20 Date of Discharge: 04/15/20 - Primary Discharge Diagnosis Acute Problems: Active Problems (Last Updated 04/14/20 @ 12:30 by Isabela Harding) Chest pain (Acute) Accelerating angina (Acute) Takotsubo's cardiomyopathy - Secondary Discharge Diagnosis Chronic Problems: Chronic Problems (Last Updated 04/14/20 @ 12:30 by Isabela Harding) Valvular heart disease (Chronic) Nicotine dependence, cigarettes, uncomplicated (Chronic) Anxiety (Chronic) COPD (chronic obstructive pulmonary disease) (Chronic) suspected Iron deficiency anemia (Chronic) Coronary artery disease (Chronic) Tobacco abuse (Chronic) Nonrheumatic mitral (valve) insufficiency (Chronic) Nonrheumatic aortic (valve) insufficiency (Chronic) Pure hypercholesterolemia (Chronic) Essential (primary) hypertension (Chronic) History of coronary artery stent placement (Chronic ~03/11/08) PCI/stent to LCX 03/11/08 Atherosclerosis of [place] coronary artery of [place] heart without angina pectoris (Chronic) Stenting to LCX in March 2008; Hospital Course and Treatment Imaging Results: Diagnostic Data Chest X-Ray 04/13/20 16:45 IMPRESSION: No acute pulmonary process Electronically Signed: Reuben Cole MD at 17:15 EDT , Service support , Chest CTA 04/15/20 11:56 IMPRESSION: Stable examination. No evidence of pulmonary embolism. Electronically Signed: Dennis Chaidez at 12:40 EDT , Service support , Operations: None, - - ORIF left hip fracture Procedures: 2-D Echocardiogram, Cardiac catheterization Summary of Care Provided: The patient is a 59 year old F with a PMH of CAD s/p stent 11 years ago, ongoing nicotine dependence, hypertension, hyperlipidemia and aortic valve i nsufficiency. She was admitted through the ED with a complaint of chest pain. Patient had been having chest pain for about a month with associated exertional shortness of breath and increased fatigue. She had an outpatient stress test which was found to be abnormal and she was scheduled to have an outpatient cath for follow-up. However his symptoms worsened with associated chest heaviness, heartburn and diaphoresis so she decided to come into the ED. She was admitted and managed for chest pain rule out ACS. Cardiology was consulted as she had been scheduled for outpatient cardiac cath. Cardiac cath was done which showed elevated left ventricular end-diastolic pressure with normal left ventricular size and wall motion as well as systolic function with EF of 60% as well as [place] multivessel coronary artery disease. Plan was for medical management. D-dimer was done and this was found to be elevated so patient had a CTA which was also negative for PE. Patient remained stable and was discharged home on 04/15/2020. Amlodipine 10 mg daily was added onto her medication and she was discharged on aspirin, Plavix and atenolol as well as ramipril. She was counseled to quit smoking. She is follow-up with her primary care doctor and cardiology within 1 to 2 weeks. Patient seen and examined prior to discharge. She had no complaints and felt well. Review of systems otherwise negative. Labs and vitals reviewed. Home medication reviewed and reconciled. O/E; Vital Signs Temp Pulse Resp BP Pulse Ox 99.6 F H 57 L 16 125/70 H 97 04/15/20 13:24 04/15/20 13:24 04/15/20 13:24 04/15/20 13:24 04/15/20 13:24 General: Alert, Oriented x3, Cooperative HEENT: Atraumatic, PERRLA, EOMI, Normocephalic Neck: Supple, No JVD, Negative Carotid Bruits Lungs: Clear to auscultation, Normal air movement Cardiovascular: Regular rate, Murmur - 3/6 RSB, 2nd ICS radiating into R neck Abdomen: Bowel Sounds Present, Soft, Non Tender Extremities: No edema, Capillary Refill Less than 3 Seconds Skin: No rashes, No breakdown Musculoskeletal: No Tenderness to Palpation of Joints or Extremities Neurological: Cranial nerves II-XII grossly intact Psych/Mental Status: Normal Affect, Appropriate, Alert and oriented to time, place, person, mood and affect Plan is for DC home today Patient Problems: Active and Suspected Problems (Last Updated 04/14/20 @ 12:30 by Isabela Harding) Chest pain (Acute) Accelerating angina (Acute) - Physical Exam Vitals/I&O's: Vital Signs Temp Pulse Resp BP Pulse Ox 99.6 F H 61 16 141/77 H 99 04/15/20 08:50 04/15/20 08:50 04/15/20 08:50 04/15/20 08:50 04/15/20 08:50 Oxygen Delivery Method Room Air Weight: 129 lb 9.6 oz Body Mass Index (BMI) 20.2 Intake and Output for Last 24 Hours 04/13/20 04/14/20 04/15/20 23:59 23:59 23:59 Intake Total 2408.5 / 2408.5 1896.5 / 1896.5 Output Total 0 / 0 Balance 2408.5 / 2408.5 1896.5 / 1896.5 Laboratory Results 04/15/20 06:08: WBC 6.5, RBC 4.16 L, Hgb 12.5, Hct 39.0, MCV 93.8, MCH 30.0, MCHC 32.1, RDW Std Deviation 43.6, RDW Coeff of Ace 12.6, Plt Count 287, MPV 10.4, Immature Gran % (Auto) 0.300, Neut % (Auto) 70.1 H, Lymph % (Auto) 18.3 L, [place] % (Auto) 8.7, Eos % (Auto) 2.1, Baso % (Auto) 0.5, Absolute Neuts (auto) 4.6, Absolute Lymphs (auto) 1.19, Nucleated RBC % 0 04/15/20 06:08: Sodium 137, Potassium 3.3 L, Chloride 103, Carbon Dioxide 28.0, Anion Gap 6, BUN 8, Creatinine 0.64, Estim Creat Clear Calc 85.67, Est GFR ( RD) Af Amer 120, Est GFR (MDRD) Non-Af 99, BUN/Creatinine Ratio 12.4, Glucose 101, Calcium 8.8 04/15/20 06:08: Magnesium 2.0 Current Medications Acetaminophen (Tylenol) 650 mg PO Q6H PRN PRN PRN Reason: Pain Score 1-10/Temp > 100.7 F Last Admin: 04/15/20 03:22 Dose: 650 mg Documented by: Al Hydroxide/Mg Hydroxide (Mylanta Ii) 15 ml PO Q6H PRN PRN PRN Reason: DYSPEPSIA Amlodipine Besylate (Norvasc) 10 mg PO DAILY [facility] Last Admin: 04/15/20 09:01 Dose: 10 mg Documented by: Aspirin (Ecotrin) 81 mg PO DAILY@0800 [facility] Last Admin: 04/15/20 09:00 Dose: 81 mg Documented by: Atenolol (Tenormin (Beta Zeina)) 25 mg PO DAILY [facility] Last Admin: 04/15/20 09:01 Dose: 25 mg Documented by: Atorvastatin Calcium (Lipitor) 80 mg PO QHS [facility] Last Admin: 04/14/20 21:22 Dose: 80 mg Documented by: Calcium Carbonate (Tums) 500 mg PO Q6H PRN PRN PRN Reason: DYSPEPSIA Escitalopram Oxalate (Lexapro) 10 mg PO DAILY [facility] Last Admin: 04/15/20 09:01 Dose: 10 mg Documented by: Heparin Sodium (Beef Lung) (Heparin 500 Unit/5 Ml (100/Ml)) 500 unit IV UD PRN PRN Reason: HEPARIN FLUSH Hydralazine HCl (Apresoline Iv) 10 mg IV Q6H PRN PRN PRN Reason: for SBP>160 Hydrochlorothiazide (Hctz) 25 mg PO DAILY [facility] Last Admin: 04/15/20 09:07 Dose: 25 mg Documented by: Sodium Chloride () 1,000 mls @ 60 mls/hr IV .[id number] [facility] Last Admin: 04/15/20 06:31 Dose: 60 mls/hr Documented by: Sodium Chloride () 1,000 mls @ 0 mls/hr IV .Q0M [facility] Labetalol HCl (Trandate) 5 mg IV X1 PRN PRN Reason: SBP > 160 prior to sheath pull Nitroglycerin (Nitrostat) 0.4 mg SUBLINGUAL Q5M PRN PRN Reason: CARDIAC/CHEST PAIN Ondansetron HCl (Zofran) 4 mg IV Q8H PRN PRN PRN Reason: NAUSEA/VOMITING Last Admin: 04/14/20 11:36 Dose: 4 mg Documented by: Pantoprazole Sodium (Protonix) 40 mg PO DAILY [facility] Last Admin: 04/15/20 09:01 Dose: 40 mg Documented by: Pramipexole Dihydrochloride (Mirapex) 0.125 mg PO TID [facility] Last Admin: 04/15/20 05:55 Dose: Not Given Documented by: Ramipril (Altace) 20 mg PO DAILY [facility] Last Admin: 04/15/20 09:00 Dose: 20 mg Documented by: Senna/Docusate Sodium (Senokot-S, Naty-Colace) 2 tablet PO BID PRN PRN PRN Reason: Constipation Sodium Chloride () 10 - 40 ml IV UD PRN PRN Reason: SALINE FLUSH Last Admin: 04/14/20 11:36 Dose: 10 ml Documented by: Zolpidem Tartrate (Ambien (Generic)) 5 mg PO QHS PRN PRN PRN Reason: INSOMNIA Discharge Diet: Low fat/ Low Cholesterol Discharge Activity: Return to Normal Activity Weight Bearing Status: Weight bearing as tolerated Call your doctor if you observe: Shortness of breath, Dizziness, Fainting spells, Swelling in the ankles, - - chest pain Home Medications: Medications to take at Discharge aspirin 81 mg tablet,delayed release 81 mg PO DAILY 07/09/19 Atenolol [Tenormin (beta zeina)] 25 mg PO DAILY 11/04/19 Atorvastatin Calcium 80 mg PO QHS 11/04/19 Clopidogrel Bisulfate [Clopidogrel] 75 mg PO DAILY 11/04/19 Ramipril 20 mg PO DAILY 11/04/19 Escitalopram Oxalate [Lexapro] 10 mg PO DAILY 04/13/20 Niacin 500 mg PO DAILY 04/13/20 Pantoprazole Sodium [Protonix] 40 mg PO DAILY 04/13/20 Amlodipine [Norvasc] 10 mg PO DAILY #30 tab 04/15/20 Following Prescriptions Were Given to Patient: Amlodipine [Norvasc] 10 mg PO DAILY #30 tab Transmission Status: Received by [employer] [facility]30 Primary Care Physician: Cora Nguyễn MD [Primary Care Provider] - Please follow up with your Primary Care Physician in: 1-2 weeks Please Follow Up With: Feliz Clancy MD When: 1-2 weeks Patient Instructions: ED Chest Pain NonCardiac Disposition: Home Minutes spent on discharge:: 35 Patient Condition:: Stable Medical Necessity - Tobacco Use Smoking Status: Current every day smoker Tobacco Use: Cigarettes Meaningful Use Info Meaningful Use Diagnoses (Choose all that apply): None applicable OBSV E&M: 03614 Observation care discharge
[2020-04-15 11:45] VITALS: O2SAT 99
--- NOTE | 2020-04-15 11:56 | CT_ITS ---
STUDY: CTA CHEST REASON FOR EXAM: Female, 59 years old. EPIGASTRIC PAIN RADIATES TO CHEST AND TAKES BREATH AWAY, ELEVATED D-DIMER RADIATION DOSAGE (If Supplied By Facility): CTDIvol = ( 5.94 ) mGy, DLP = ( 153.13 ) mGycm TECHNIQUE: The examination was performed with the intravenous administration of IV 100mL Isovue-370. Post-processing of the angiographic images was performed, with multiplanar reformation and 3D reconstruction. Individualized dose optimization techniques were used for this CT. COMPARISON: Comparison is made with prior study dated 01/08/2016. FINDINGS: Normal enhancement of the main pulmonary artery and right and left pulmonary arteries. Normal enhancement of the bilateral peripheral pulmonary arteries. There is no demonstrated pulmonary embolism. Normal thoracic aorta and visualized great vessels. There is no demonstrated aortic dissection. There are calcifications of the coronary arteries. There are visualized mediastinal lymph nodes, which are within normal size limits, and with normal morphology. Normal hilar regions. Normal visualized trachea and bronchi. Hyperinflation. Diffuse emphysematous changes with bolus formation worse in the upper lobes. Normal pleura. Normal chest wall structures. There are degenerative changes of thoracic spine. Normal visualized upper abdomen. CT/CTA Chest W/WO Contrast IMPRESSION: Stable examination. No evidence of pulmonary embolism. Electronically Signed: Dennis Chaidez, at 12:40 EDT , Service support ,
--- NOTE | 2020-04-15 12:31 | PHA.DC.COU ---
Pharmacy Services has performed discharge medication counseling for this patient. The patient was counseled on the following discharge medications and changes in medications for homegoing review. The Reason for Use, instructions for use, and potential side effects were reviewed for all new medications. The patient's questions regarding all of their medications were answered. The patient was able to verbally demonstrate an understanding of their discharge medications. The patient demonstrated some understanding but would benefit from further education and reinforcement. The patient was not able to adequately demonstrate understanding.
[2020-04-15 13:24] VITALS: BP 125/70; PULSE 57; RESP 16; TEMP 37.6; O2SAT 97
== END 2020-04-15 11:27 | disposition home or self-care (01) ==
LOC: ED 17:58 → PCU 18:11
PROVIDERS: Internal Medicine Cardiovascular Disease; Physician Assistant; Admitting Provider Hospitalist; Emergency Provider Emergency Medicine; PCP Internal Medicine; Visit Provider Student in an Organized Health Care Education/Training Program
DX: I25.118 Atherosclerotic heart disease of native coronary artery with other forms of angina pectoris (principal); R07.89 Other chest pain; J44.9 Chronic obstructive pulmonary disease, unspecified; K21.9 Gastro-esophageal reflux disease without esophagitis; F41.9 Anxiety disorder, unspecified; F17.210 Nicotine dependence, cigarettes, uncomplicated; R01.1 Cardiac murmur, unspecified; F32.9 Major depressive disorder, single episode, unspecified; I08.3 Combined rheumatic disorders of mitral, aortic and tricuspid valves; I16.1 Hypertensive emergency; I11.9 Hypertensive heart disease without heart failure; E78.5 Hyperlipidemia, unspecified; Z95.5 Presence of coronary angioplasty implant and graft; Z79.899 Other long term (current) drug therapy; Z79.82 Long term (current) use of aspirin; Z79.02 Long term (current) use of antithrombotics/antiplatelets
CPT/HCPCS: 36415; 71045; 71275; 80048; 83735; 84484; 85025; 85379; 85610; 93005; 93306; 93458; 96361; 96374; 99152; 99153; 99218; 99251; 99285; 99406; J7030; J7040; Q9967; A4216; C1769; C1894; G0378; G0463; J2405

== ENCOUNTER → 2020-09-06 10:57 | Outpatient (CLI) | payer OTHER, SELFPAY ==
[2020-07-07 15:50] VITALS: BMI 21.1
[2020-09-06 12:08] LABS: AST(SGOT) 18 U/L (15-37); Alanine Aminotransfer ALT/SGPT 28 U/L (13-56); Albumin, Serum 3.6 g/dL (3.2-5.0); Alkaline Phosphatase 104 U/L (45-117); Bilirubin, Direct 0.11 mg/dL (0.00-0.30); Cholesterol 129 mg/dL (200); Globulin 3.8 g/dL (2.2-4.2); High Density Lipoprotein 70 mg/dL; Protein, Total 7.4 g/dL (6.4-8.2); Triglycerides 63 mg/dL; Very Low Density Lipoprotein 13 mg/dL (5-40)
== END ==
PROVIDERS: PCP Internal Medicine; Referring Provider Internal Medicine Cardiovascular Disease; Visit Provider Internal Medicine Cardiovascular Disease
DX: R07.9 Chest pain, unspecified (principal); R94.39 Abnormal result of other cardiovascular function study; I25.10 Atherosclerotic heart disease of native coronary artery without angina pectoris; Z95.5 Presence of coronary angioplasty implant and graft; I10 Essential (primary) hypertension; E78.00 Pure hypercholesterolemia, unspecified; Z72.0 Tobacco use
CPT/HCPCS: 36415; 80061; 80076

== ENCOUNTER → 2020-12-22 12:55 | Outpatient (CLI) | payer OTHER, SELFPAY ==
[2020-07-07 15:50] VITALS: BMI 21.1
--- NOTE | 2020-12-22 12:57 | ART_ITS ---
Reason For Study: CLAUDICATION Procedure A bilateral lower extremity continuous wave Doppler with analog waveform analysis,segmental pressures,and ankle brachial indexes without exercise. Left Segmental Pressures Left brachial= 166mmHg. Left posterior tibial artery = 173mmHg. Left dorsalis pedis artery = 176mmHg. Left digit = 101 mmHg. The left dorsalis pedis waveforms are triphasic. The left posterior tibial artery waveforms are triphasic. Right Segmental Pressures Right brachial= 151mmHg. Right posterior tibial artery = 166mmHg. Right dorsalis pedis artery = 172mmHg. Right digit = 75 mmHg. The right dorsalis pedis waveforms are triphasic. The right posterior tibial artery waveforms are triphasic. Indices The right ankle brachial index by the dorsalis pedis is 1.04. The right ankle brachial index by the posterior tibial artery is 1.00. The right digital-brachial index is .45. The left ankle brachial index by the posterior tibial artery is 1.04. The left ankle brachial index by the dorsalis pedis is 1.06. The left digital-brachial index is .61. VL/Lower Ext Art Exam w/o Exercis Interpretation Summary Normal bilateral lower extremity ankle-brachial indices and normal bilateral po sterior tibial and dorsalis pedis triphasic waveforms at rest Abnormal bilateral digital brachial indices 0.45 on the right and 0.61 on the l eft which may be due to temperature effect. Clinical correlation would be appropriate. Ordering Physician: Isabela Loaiza Referring Physician: SHIRA BULLARD Performed By: Razia Rai RDCS, RVT
== END ==
PROVIDERS: PCP Internal Medicine; Referring Provider Physician Assistant Medical; Visit Provider Physician Assistant Medical
DX: I25.10 Atherosclerotic heart disease of native coronary artery without angina pectoris (principal); I73.9 Peripheral vascular disease, unspecified
CPT/HCPCS: 93923

== ENCOUNTER → 2021-02-17 08:58 | Outpatient (CLI) | payer OTHER, SELFPAY ==
[2021-01-19 15:53] VITALS: BMI 20.2
--- NOTE | 2021-02-17 09:06 | CDU_ITS ---
Reason For Study: Carotid stenosis Rt. Velocities/BP Lt. Velocities/BP Prox CCA 78.6/13.4 cm/sec. Prox CCA 76/16 cm/sec. Mid CCA 72.1/17.3 cm/sec. Mid CCA 64.3/21.2 cm/sec. Dist CCA 64.3/16 cm/sec. Dist CCA 64.3/21.2 cm/sec. Prox ICA 49.9/13.4 cm/sec. Prox ICA 53.2/17.3 cm/sec. Mid ICA 63/16 cm/sec. Mid ICA 89.3/26.7 cm/sec. Dist ICA 87.8/23.9 cm/sec. Dist ICA 69.6/25.6 cm/sec. Rt. ICA/CCA = 1.22. Lt. ICA/CCA = 1.39. Prox ECA 59.1/9.5 cm/sec. Prox ECA 52/6.9 cm/sec. Rt. Vert. 46/12.1 cm/sec. Lt. Vert. 35.2/9.9 cm/sec. Right Extracranial There is homogeneous, smooth atherosclerotic plaque noted in the right common carotid artery. There is homogeneous, smooth atherosclerotic plaque noted in the right internal carotid artery. There is intimal thickening but no significant atherosclerotic plaque noted in the right external carotid artery. Antegrade flow is noted in the right vertebral artery. Left Extracranial There is homogeneous, smooth atherosclerotic plaque noted in the left common carotid artery. There is heterogeneous, irregular atherosclerotic plaque noted in the left internal carotid artery. There is intimal thickening but no significant atherosclerotic plaque noted in the left external carotid artery. Antegrade flow is noted in the left vertebral artery. There is heterogeneous, irregular atherosclerotic plaque noted in the left bulb. Procedure Carotid Duplex 87496. This is a Carotid Duplex examination using B-mode, color flow and specral Doppler. Exam performed in department. VL/Carotid Duplex Ultrasound Interpretation Summary Mild (<50%) stenosis right extracranial internal carotid. Mild (<50%) stenosis left extracranial internal carotid. Flow within the vertebral arteries is antegrade bilaterally. Ordering Physician: Joe Lennon Referring Physician: Cora Nguyễn Performed By: Falguni Mahajan RVT
--- NOTE | 2021-02-17 09:06 | AAVD_ITS ---
Reason For Study: Atherosclerosis Aorta Measurements Aorta Doppler Measurements Proximal aorta measures2.08 x 2.05cm. in cross- Peak systolic flow velocities within the proximal sectional axis. aorta measure 57.2 cm/sec. Proximal aorta measures2.05cm. in longitudinal Peak systolic flow velocities within the mid aorta axis. measure 72.9 cm/sec. Mid aorta measures1.66 x 1.67cm. in cross- Peak systolic flow velocities within the distal sectional axis. aorta measure 48.5 cm/sec. Mid aorta measures1.65cm. in longitudinal axis. Distal aorta measures1.26 x 1.26cm. in cross- sectional axis. Distal aorta measures1.25cm. in longitudinal axis. Left Iliac Artery Left iliac artery measures 0.66 x 0.66 cm. in the cross-sectional axis. Left iliac artery measures 0.69 cm. in the longitudinal axis. Peak systolic velocity in the left iliac artery measures 206.3 cm/sec. Right Iliac Artery Right iliac artery measures 0.64 x 0.64 cm. in the cross-sectional axis. Right iliac artery measures 0.72 cm. in the longitudinal axis. Peak systolic velocity in the right iliac artery measures 201.1 cm/sec. Procedure Aorta IVC Iliac vasculature or bypass grafts [id number]. Exam performed in department. VL/Abd Aortic/IVC Duplex scan Interpretation Summary No evidence of aortic iliac aneurysm or stenosis. Ordering Physician: Joe Lennon Referring Physician: Cora Nguyễn Performed By: Falguni Mahajan RVT
--- NOTE | 2021-02-17 09:06 | ART_ITS ---
Reason For Study: Atherosclerosis Procedure A bilateral lower extremity continuous wave Doppler with analog waveform analysis,segmental pressures,and ankle brachial indexes with exercise. Left Segmental Pressures Left brachial= 193mmHg. Left posterior tibial artery = 205mmHg. Left dorsalis pedis artery = 194mmHg. Left digit = 135 mmHg. The left dorsalis pedis waveforms are triphasic. The left posterior tibial artery waveforms are triphasic. Right Segmental Pressures Right brachial= 196mmHg. Right posterior tibial artery = 212mmHg. Right dorsalis pedis artery = 205mmHg. Right digit = 131 mmHg. The right dorsalis pedis waveforms are triphasic. The right posterior tibial artery waveforms are triphasic. Indices The right ankle brachial index by the dorsalis pedis is 1.05. The right ankle brachial index by the posterior tibial artery is 1.08. The right digital-brachial index is 0.67. The right post exercise ankle brachial index is 0.83. The left ankle brachial index by the dorsalis pedis is 0.99. The left ankle brachial index by the posterior tibial artery is 1.05. The left digital-brachial index is 0.69. The left post exercise ankle brachial index is 0.92. VL/Ankle Brachial Index Interpretation Summary No evidence of significant occlusive disease at rest with an INES of 1.08 and 1. 05. Bilateral legs with triphasic flow noted at the ankle. Digit brachial index 0.67 and 0.69. Ordering Physician: Joe Lennon Referring Physician: Cora Nguyễn Performed By: Falguni Mahajan RVT
== END ==
PROVIDERS: PCP Internal Medicine; Referring Provider Surgery Vascular Surgery; Visit Provider Surgery Vascular Surgery
DX: I77.1 Stricture of artery (principal); I65.23 Occlusion and stenosis of bilateral carotid arteries; I70.213 Atherosclerosis of native arteries of extremities with intermittent claudication, bilateral legs; M79.606 Pain in leg, unspecified; E78.00 Pure hypercholesterolemia, unspecified; I10 Essential (primary) hypertension; F17.200 Nicotine dependence, unspecified, uncomplicated
CPT/HCPCS: 93880; 93922; 93978

== ENCOUNTER → 2021-04-19 15:55 | Outpatient (CLI) | payer OTHER, SELFPAY ==
[2021-01-19 15:53] VITALS: BMI 20.2
--- NOTE | 2021-04-19 15:57 | CT_ITS ---
STUDY: CT LEFT HIP WITHOUT CONTRAST REASON FOR EXAM: Female, 60 years old. DISPL INTERTROCH FX 1 FEMUR,SUBS FOR CLOS FX W ROUTN HEAL RADIATION DOSAGE (If Supplied By Facility): CTDIvol = ( 12.06 ) mGy, DLP = ( 512.13 ) mGycm Individualized dose optimization techniques were used for this CT. ? TECHNIQUE: Transaxial CT imaging of the hip was performed. Coronal and sagittal images were reformatted. COMPARISON: Left hip x-ray dated November 01, 2019 FINDINGS: Stable intramedullary nail system of the left hip and femur without hardware complications. There is 95% healing of the intertrochanteric fracture site with fibrous deposits at the lesser trochanteric incompletely ossified fracture site. The displaced lesser trochanteric triangular-shaped fragment is only a few millimeters medial to the site of origin which is improved from what was seen on the initial study. Moderate intraosseous cystic changes present in the central aspect of the head of the femur, on the articular surface. The left hip joint space is preserved. The visualized aspects of the left hemipelvis structures are grossly unremarkable. There is a non-specific bowel gas pattern. Normal visualized soft tissue structures. Diffuse rectosigmoid diverticulosis noted. Normal bladder. The remaining visualized internal structures are grossly unremarkable. Mild enthesopathy at the periphery of the left iliac wing noted. Unremarkable SI joint. A small left hip joint effusion is present. CT/Extremity Lower without Contra IMPRESSION: 1. There is 95% healing of the intertrochanteric fracture site, with fibrous deposits at the lesser trochanteric incompletely ossified fracture site. Electronically Signed: Adolfo Benson MD at 17:10 EDT , Service support ,
== END ==
PROVIDERS: PCP Internal Medicine; Referring Provider Physician Assistant; Visit Provider Physician Assistant
DX: S72.142D Displaced intertrochanteric fracture of left femur, subsequent encounter for closed fracture with routine healing (principal)
CPT/HCPCS: 73700

== ENCOUNTER 2021-12-14 11:15 | Outpatient (CLI) | payer BC, SELFPAY ==
[2021-12-14 12:11] LABS: AST(SGOT) 18 U/L (15-37); Alanine Aminotransfer ALT/SGPT 25 U/L (13-56); Albumin, Serum 3.4 g/dL (3.2-5.0); Alkaline Phosphatase 99 U/L (45-117); Bilirubin, Direct 0.17 mg/dL (0.00-0.30); Cholesterol 131 mg/dL (200); Globulin 4.1 g/dL (2.2-4.2); High Density Lipoprotein 54 mg/dL; Protein, Total 7.5 g/dL (6.4-8.2); Triglycerides 82 mg/dL; Very Low Density Lipoprotein 16 mg/dL (5-40)
== END 2021-12-14 23:59 | disposition home or self-care (01) ==
LOC: LAB 11:18
PROVIDERS: PCP Internal Medicine; Referring Provider Internal Medicine Cardiovascular Disease; Visit Provider Internal Medicine Cardiovascular Disease
DX: E78.00 Pure hypercholesterolemia, unspecified (principal)
CPT/HCPCS: 36415; 80061; 80076

== ENCOUNTER 2021-12-20 09:57 | Outpatient (CLI) | payer BC, SELFPAY ==
--- NOTE | 2021-12-20 10:02 | ECHOD_ITS ---
Reason For Study: Murmur Procedure This was a 2D Doppler, Color Flow transthoracic echocardiogram. The exam was of adequate technical quality. Exam performed in department. Left Ventricle Normal LV size. Moderate concentric left ventricular hypertrophy. Left ventricular systolic function is normal. The estimated ejection fraction is 60 %. There is evidence of diastolic dysfunction. No regional wall motion abnormalities noted. Right Ventricle Normal RV size. Normal systolic function. Atria The left atrium is mildly enlarged. Normal right atrium. Color-flow Doppler study compatible with a left to right interatrial shunt compatible with a small PFO versus ASD. Mitral Valve There is no mitral annular calcification. Anterior leaflet diffuse mitral valve thickening. Mild (1+) eccentric mitral valve insufficiency. Tricuspid Valve Normal tricuspid valve. Mild (1+) tricuspid valve insufficiency. Right ventricular systolic pressure estimated to be 31 mmHg. Aortic Valve Trisinus/trileaflet aortic valve. Moderate diffuse aortic valve thickening. Mild focal aortic valve calcification. Moderate aortic stenosis. Mild (1+) aortic valve insufficiency. Pulmonic Valve The pulmonic valve is not well visualized. Great Vessels The aortic root is not well visualized. Pericardium/Pleural No pericardial effusion. MMode/2D Measurements & Calculations LVIDd: 4.3 cm IVSd: 1.4 cm LVOT diam: 2.0 cm LVIDs: 2.9 cm LVPWd: 1.4 cm LVOT area: 3.3 cm2 RVDd: 4.6 cm FS: 31.4 % LA dimension: 4.0 cm LAV(MOD-bp): 74.4 ml Aortic Valve Planimetry: 1.2 cm2 LAV(MOD-bp) Indexed: 43.5 ml/m2 LAV(MOD-sp2): 71.8 ml LAV(MOD-sp4): 72.7 ml LA A4 area: 21.7 cm2 RA A4 area: 17.5 cm2 Time Measurements MV dec time: 0.45 sec Doppler Measurements & Calculations MV E max ventura: 65.7 cm/sec Lat Peak E' Ventura: 4.5 cm/sec Med Peak E' Ventura: 3.6 cm/sec MV A max ventura: 100.4 cm/sec E/E' lat: 14.5 E/E' med: 18.2 MV E/A: 0.65 MV V2 max: 94.4 cm/sec MV P1/2t max ventura: 69.6 cm/sec Ao V2 max: 316.2 cm/sec MV max P.6 mmHg MV P1/2t: 101.7 msec Ao max P.0 mmHg MV V2 mean: 49.5 cm/sec MV dec slope: 200.3 cm/sec2 Ao V2 mean: 210.6 cm/sec MV mean P.2 mmHg Ao mean P.7 mmHg MV V2 VTI: 30.6 cm MVA(P1/2t): 2.2 cm2 Ao V2 VTI: 77.4 cm MVA(VTI): 2.3 cm2 ADRY(I,D): 0.92 cm2 ADRY(V,D): 1.1 cm2 AI max ventura: 498.1 cm/sec LV V1 max: 102.5 cm/sec SV(LVOT): 70.8 ml AI max P.4 mmHg LV V1 max P.2 mmHg LV V1 mean P.0 mmHg AI dec slope: 266.7 cm/sec2 LV V1 mean: 64.8 cm/sec AI P1/2t: 547.1 msec LV V1 VTI: 21.8 cm PA V2 max: 99.2 cm/sec TR max ventura: 262.0 cm/sec TR max P.5 mmHg ECHO/Echo Complete Interpretation Summary Left ventricular systolic function is normal. The estimated ejection fraction is 60 %. Moderate concentric left ventricular hypertrophy. The left atrium is mildly enlarged. Anterior leaflet diffuse mitral valve thickening. Mild (1+) eccentric mitral valve insufficiency. Mild (1+) tricuspid valve insufficiency. Moderate aortic stenosis. Mild (1+) aortic valve insufficiency. Right ventricular systolic pressure estimated to be 31 mmHg. There is evidence of diastolic dysfunction. Color-flow Doppler study compatible with a left to right interatrial shunt comp atible with a small PFO versus ASD. Comment: The previous transthoracic echocardiogram from 04-15-2020 demonstrated a negative agitated saline contrast study for a right to left interatrial shunt. Color-flow Doppler study compatible with a left to right Ordering Physician: Feliz Clancy Referring Physician: Cora Nguyễn Performed By: David Kohler RCS
== END 2021-12-20 23:59 | disposition home or self-care (01) ==
LOC: CVS 10:01
PROVIDERS: PCP Internal Medicine; Referring Provider Internal Medicine Cardiovascular Disease; Visit Provider Internal Medicine Cardiovascular Disease
DX: I38 Endocarditis, valve unspecified (principal); E78.00 Pure hypercholesterolemia, unspecified; I10 Essential (primary) hypertension; Z95.5 Presence of coronary angioplasty implant and graft; I25.10 Atherosclerotic heart disease of native coronary artery without angina pectoris
CPT/HCPCS: 93306

== ENCOUNTER → 2022-04-26 | Outpatient (CLI) | payer BC, SELFPAY ==
--- NOTE | 2022-04-26 13:09 | STRESSREP_ITS ---
Stress Test Report Date: Procedure: Pharmacologic stress nuclear imaging study Indications: Abnormal ECG; CAD; PCI; aortic valve disease; chest pain Consent: Per the patient Procedure: The patient underwent pharmacologic (Regadenoson 0.4mg ) evaluation with a peak heart rate of 70 beats per minute (44%predicted maximal heart rate) and a peak b lood pressure of 174/88 mmHg. The baseline ECG demonstrated sinus bradycardia; ST/T wave abnormality. The peak pharmacologic ECG demonstrated continued ST/T wave abnormality. There were no cardiac dysrhythmias pretest, during pharmacologic infusion, or recovery. There was no complaint of chest discomfort during pharmacologic infusion or recovery. The examination was discontinued secondary to completion of protocol. Impression: 1. Pharmacologic (Regadenoson) evaluation 2. Peak pharmacologic ECG with continued ST/T wave abnormality. 3. There were no cardiac dysrhythmias pretest, during pharmacologic infusion, or recovery. 4. Nuclear images pending Myocardial perfusion imaging study: Technique: The patient was injected with 11.6 millicuries of technetium 99m Cardiolite and subsequently rest SPECT Cardiolite nuclear imaging was obtained in the horizontal long, vertical long, and short axis views. The patient underwent pharmacologic (Regadenoson) evaluation with a peak heart rate of 70 beats per minute (44% percent predicted maximal heart rate) and a peak blood pressure of 174/88 mmHg. The patient was injected with 33.2 millicuries of technetium 99m Cardiolite and subsequently stress SPECT Cardiolite nuclear imaging was obtained in the horizontal long, vertical long, and short axis views. A gated Cardiolite study at peak stress was obtained. Interpretation: Rest and stress SPECT Cardiolite nuclear imaging status post realignment, normalization, and attenuation correction demonstrate relative uniform tracer uptake and myocardial perfusion appearing within normal limits. There is end systolic thickening and brightening. The gated Cardiolite study demonstrates myocardial thickening and inward wall motion. The reported LVEF is 57%. Impression: 1. Rest and stress SPECT Cardiolite nuclear imaging demonstrate relative uniform tracer uptake and myocardial perfusion appearing within normal limits. 2. The gated Cardiolite study reports an LVEF of 57%. This note was generated with [employer] software. It may contain incorrect words, spelling, and punctuation that were not noted in checking the note before signing.
== END | disposition home or self-care (01) ==
PROVIDERS: PCP Internal Medicine; Referring Provider Nurse Practitioner Family; Visit Provider Nurse Practitioner Family
DX: R94.31 Abnormal electrocardiogram [ECG] [EKG] (principal); Z95.5 Presence of coronary angioplasty implant and graft; I10 Essential (primary) hypertension; E78.00 Pure hypercholesterolemia, unspecified
CPT/HCPCS: 78452; 93017; A9500; A4216; J2785

== ENCOUNTER 2022-12-04 12:03 | Observation (INO) | payer BC, SELFPAY ==
[2022-12-04 12:04] VITALS: BP 162/87; PULSE 71; RESP 16; TEMP 36.4; O2SAT 97; BMI 22.2
--- NOTE | 2022-12-04 12:30 | CT_ITS ---
STUDY: CT ABDOMEN AND PELVIS WITH CONTRAST REASON FOR EXAM: Female, 62 years old. rlq pain, gi bleeding RADIATION DOSAGE (If Supplied By Facility): CTDIvol = ( 16.44 ) mGy, DLP = ( 637.97 ) mGycm TECHNIQUE: Transaxial images were obtained from the dome of the diaphragm to the symphysis pubis without oral contrast. IV 100mL Isovue-300 was administered. Sagittal and coronal images were reconstructed. Individualized dose optimization techniques were used for this CT. COMPARISON: None. FINDINGS: Minimal degree of dependent right basilar atelectasis. Coronary artery calcification. There is decreased attenuation of the liver consistent with steatosis. Minimal dilatation of the central intrahepatic biliary ducts. Questionable tiny gallstones in the neck of the gallbladder. Normal spleen. Normal pancreas. Normal bilateral adrenal glands. Small right renal cysts. Normal left kidney. Normal visualized stomach. Normal small intestine. There are multiple colonic diverticula consistent with diverticulosis. The appendix is visualized and appears normal. There is diffuse atherosclerotic calcification of the abdominal aorta and its major visceral branches, without a demonstrated aneurysm. Normal inferior vena cava. Normal retroperitoneum. Normal urinary bladder. There is absence of the uterus consistent with a prior hysterectomy. Normal abdominal wall. There are mild degenerative changes of the visualized lumbar spine. Prior left total hip replacement. CT/Abdomen/Pelvis W IV Cont ONLY IMPRESSION: Questionable tiny gallstones in the neck of the gallbladder. Fatty infiltration of the liver. Minimal dilatation of the central intrahepatic biliary ducts. Small right renal cysts. Sigmoid diverticulosis without evidence of diverticulitis. Electronically Signed: Dennis Chaidez MD at 13:50 EDT ,
[2022-12-04] MEDS: 0.9% Normal Saline 1,000 ML 1000 ML IV (12:47)
[2022-12-04 12:50] LABS: Absolute Lymphocyte Count 1.35 X10^3/uL (0.83-4.51); Absolute Neutrophil Count 5.2 X10^3/uL (2.0-7.7); Basophil# 0.02 X10^3/uL; Basophil% 0.3 % (0-1); Eosinophil# 0.08 X10^3/uL; Eosinophils% 1.1 % (0-5); Hematocrit 34.5 % (37-47); Hemoglobin 11.7 g/dL (12.0-15.0); Lymphocyte # 1.35 X10^3/ul (0.83-4.51); Lymphocyte % 18.9 % (19-41); Mean Corp Hgb Conc 33.9 g/dL (32-36); Mean Corpuscular Hgb 31.1 pg (27.0-32.0); Mean Corpuscular Volume 91.8 fL (81-99); Mean Platelet Vol. 11.3 fl (6.2-12.0); Monocyte# 0.49 X10^3/uL; Monocyte% 6.9 % (0-10); NRBC Flagged by Analyzer 0 % (0-5); Neutrophil # 5.19 X10^3/uL (2.7-7.7); Neutrophil % 72.5 % (47-70); Platelet Count 238 K/mm3 (150-450); RBC Distribution Width CV 12.6 % (11.6-14.6); RBC Distribution Width SD 41.9 fl (35.1-43.9); Red Blood Count 3.76 M/mm3 (4.2-5.4); White Blood Count 7.2 K/mm3 (4.4-11.0)
[2022-12-04 13:07] LABS: Anion Gap 5 (5-15); BUN 18 mg/dL (7-18); Calcium,Total 9.4 mg/dL (8.5-10.1); Chloride 110 mmol/L (98-107); Creatinine, Serum 0.56 mg/dL (0.55-1.02); EST Glomerular Filtration Rate 115 mL/min (>60); Est Glom Filt Rate - Afr Amer 139 mL/min (>60); Estimated Creatinine Clearance 98.69 ml/min; Glucose 113 mg/dL (74-106); Sodium Level 140 mmol/L (136-145)
--- NOTE | 2022-12-04 14:10 | ED.VIS.GI ---
HPI HPI - GI History of Present Illness Chief Complaint: GI Bleed Informant: patient Abdominal Pain/Flank Pain Onset: Days (2-3) Timing: Continuous Quality: Aching Location: RLQ Current Severity: Moderate Maximum Severity: Moderate Worsened by: Nothing Relieved by: Nothing Nausea/Vomiting/Emesis GI Symptom: Positive for Nausea; Negative for Vomiting Onset: Today Diarrhea/Melena/Hematochezia GI Symptom: Positive for Melena and Hematochezia Onset: Days (2-3) Associated Symptoms Associated Symptoms: Negative for Dysuria, Frequency, Hematuria or Urgency Narrative Narrative: Patient states couple days ago she had an episode of blood in her stool, then she was having melanotic nonbloody stools, and then today she has had 3 or so episodes of bright red blood per rectum, that seem to get worse with each 1. She also has chronic discomfort in the right lower part of her abdomen, and in the last several days that pain has been more prominent. She feels a little nauseated right now, but other than the right now she has had no nausea or vomiting in the past several days. No lightheadedness or feeling exceptionally weak. She is on clopidogrel because of a history of stents in her heart, the last of which was placed remotely. [facility] Medical History (Updated 12/04/22 @ 14:[address] Sammy Anderson MD) Atherosclerosis of [place] coronary artery of [place] heart without angina pectoris Essential (primary) hypertension History of left heart catheterization (LHC) (~04/14/20) Nonrheumatic aortic (valve) stenosis Nonrheumatic mitral (valve) insufficiency Pure hypercholesterolemia Home Medications aspirin 81 mg tablet,delayed release (Adult Low Dose Aspirin) 81 mg PO DAILY heart health 07/09/19 [History Last Taken 12/03/22] amlodipine 5 mg tablet 5 mg PO DAILY #90 tabs 07/05/22 [Rx Last Taken 12/04/22] atenolol 25 mg tablet 25 mg PO DAILY blood pressure #90 tabs 07/05/22 [Rx Last Taken 12/04/22] atorvastatin 80 mg tablet 80 mg PO QHS cholesterol #90 tabs 07/05/22 [Rx Last Taken 12/03/22] clopidogrel 75 mg tablet 75 mg PO DAILY antiplatelet #90 tabs 07/05/22 [Rx Last Taken 12/03/22] ramipril 10 mg capsule 20 mg PO DAILY blood pressure #180 caps 07/05/22 [Rx Last Taken 12/04/22] Allergy/AdvReac Type Severity Reaction Status Date / Time codeine Allergy Intermediate nausea and Verified 12/04/22 12:06 vomiting Family History Father Myocardial infarction Mother Myocardial infarction Brother CAD (coronary artery disease) Hypertension Sister Hypertension Surgical History History of coronary artery stent placement (~03/11/08) History of hysterectomy History of left hip replacement History of open reduction and internal fixation (ORIF) procedure History of shoulder surgery History of tonsillectomy Social History (Updated 04/20/22 @ 13:00 by Lucina Chamberlain) Smoking Status: Current every day smoker tobacco type: cigarettes alcohol intake: current alcohol intake frequency: holidays/special occasions only substance use type: does not use caffeine: Yes Type: coffee Number of servings: 5 ROS ROS ED Constitutional Constitutional ED: Denies chills or fever(s) Eyes Eyes: Denies change in vision or diplopia ENT ENT ED: Denies rhinorrhea or sore throat Cardiovascular Cardiovascular: Denies chest pain, lightheadedness or palpitations Respiratory/Chest Respiratory/Chest: Denies cough or dyspnea Gastrointestinal Gastrointestinal: Reports abdominal pain, hematochezia, melena and nausea; Denies diarrhea or vomiting Genitourinary Genitourinary ED: Denies dysuria or hematuria Musculoskeletal Musculoskeletal: Denies back pain or neck pain Integumentary Denies abscess or rash Neurologic Neurologic: Denies headache(s), paresthesias or weakness Psychiatric Psychiatric: Denies anxiety or suicidal thoughts EXAM Physical Exam Const Vital Signs: 12/04/22 12:04 Temperature 97.5 F L Temperature Source Temporal Pulse Rate 71 Respiratory Rate 16 Blood Pressure 162/87 H Blood Pressure Mean 112 Pulse Ox 97 Oxygen Delivery Method Room Air Positive well nourished and well developed General Appearance ED: well developed and NAD HEENT Reports moist mucous membranes normocephalic and atraumatic Eyes PERRL and EOMs intact bilaterally Neck full ROM and supple Resp normal respiratory effort and clear to auscultation bilaterally Cardio regular rate, regular rhythm and no murmurs Rate: Negative for tachycardic GI non-tender and non-distended Auscultation: normoactive bowel sounds Palpation: soft Back/Spine no CVA tenderness General Back: other FROM Extremity normal to inspection General Extremety ED: Negative for edema, pulses abnormal or tenderness General Extremity: Negative for edema or pulses abnormal Neuro oriented x3, CN's II-XII intact bilaterally and no sensory deficits noted Sensorium / Orientation: awake and alert Motor Exam: strength 5/5 throughout Skin no rashes or lesions noted and no wounds MDM MDM MDM Narrative Medical decision making narrative: Patient only mildly anemic at 11.7, last measurement couple years ago was 12.5. She does not have significant elevation of her BUN, the melena does suggest a possible upper source. I did do a CT because of the pain, it shows no obvious source, nor diverticulitis or acute appendicitis. I reviewed the images and agree with the radiologist interpretation of these films. I started her on Protonix bolus and drip, discussed with GI Dr. Friend, she is not in need of transfusion at this time, she was given IV fluids her hemodynamics are stable and she is stable clinically, plan is for admission. Lab Data Attestation: I reviewed the patient's lab results. Labs: Laboratory Results - last 24 hr 12/04/22 12/04/22 12/04/22 12:15 12:15 12:15 WBC 7.2 RBC 3.76 L Hgb 11.7 L Hct 34.5 L MCV 91.8 MCH 31.1 MCHC 33.9 RDW Std Deviation 41.9 RDW Coeff of Ace 12.6 Plt Count 238 MPV 11.3 Immature Gran % (Auto) 0.300 Neut % (Auto) 72.5 H Lymph % (Auto) 18.9 L Hardy % (Auto) 6.9 Eos % (Auto) 1.1 Baso % (Auto) 0.3 Absolute Neuts (auto) 5.2 Absolute Lymphs (auto) 1.35 Nucleated RBC % 0 Sodium 140 Potassium 4.0 Chloride 110 H Carbon Dioxide 25.0 Anion Gap 5 BUN 18 Creatinine 0.56 Estim Creat Clear Calc 98.69 Est GFR (MDRD) Af Amer 139 Est GFR (MDRD) Non-Af 115 BUN/Creatinine Ratio 32.0 H Glucose 113 H Calcium 9.4 Blood Type O POSITIVE Antibody Screen NEGATIVE Radiography Diagnostic Testing: Clinical Impression(s) from Imaging Studies Abdomen/Pelvis CT 12/04/22 12:30 IMPRESSION: Questionable tiny gallstones in the neck of the gallbladder. Fatty infiltration of the liver. Minimal dilatation of the central intrahepatic biliary ducts. Small right renal cysts. Sigmoid diverticulosis without evidence of diverticulitis. Electronically Signed: Dennis Chaidez MD at 13:50 EDT , Discharge Plan Triage Chief Complaint: GI Bleed ED Provider: Sammy Anderson Dx/Rx/DC Orders Clinical Impression: Acute GI bleeding Prescriptions: No Action aspirin [Adult Low Dose Aspirin] 81 mg tablet,delayed release (DR/EC) 81 mg PO DAILY amlodipine 5 mg tablet 5 mg PO DAILY Qty: 90 3RF atenolol 25 mg tablet 25 mg PO DAILY Qty: 90 3RF atorvastatin 80 mg tablet 80 mg PO QHS Qty: 90 3RF clopidogrel 75 mg tablet 75 mg PO DAILY Qty: 90 3RF ramipril 10 mg capsule 20 mg PO DAILY Qty: 180 3RF Primary Care Provider: Cora Nguyễn Referrals: Cora Nguyễn MD [Primary Care Provider] - Disposition Disposition: Acute Care Hospital [facility]
--- NOTE | 2022-12-04 14:46 | HP.PCM_ITS ---
HPI - General General Date of Admission: 12/04/22 Date of Service: 12/04/22 Chief Complaint: BRB and dark black stools, abd cramping/pain/bloating. HPI Narrative The patient is a 62 y/o F w/ PMHx: CAD s/p PCI 2007, Valvular heart disease, HT N, HLD, COPD, Tobacco use who presents to the [facility] ED on 12/04/22 with history of bright red blood clots in her stool which eventually transition with a dark black appearing stools intermixed with nicki red blood prompting ED evaluation with associated abdominal discomfort with cramping, bloating sensation as well as pain primarily to the right upper and lower quadrants, worse with palpation which has been ongoing since onset of alteration of stools as well as loose stools since the beginning with reportedly at least 6 stools although primarily blood on day of presentation since 7 AM. She rates her abdominal discomfort at 4 out of 10 in severity. Work-up in the ED included T97.5, heart rate 71, BP 162/87, respiratory rate 16, 97% on room air, CBC with WC 7.2, hemoglobin 1.7, MCV 91.8, platelets 238 without marked shift, BMP with chloride 110, glucose 113 otherwise not marked appearing, type and screen performed per ED physician, CT abdomen/pelvis with questionable tiny gallstones in the neck of the gallbladder, fatty infiltration of the liver, minimal dilatation of the central intrapelvic biliary ducts, small right renal cyst, sigmoid diverticulosis without any evidence of diverticulitis. In the ED patient ministered 1 L normal saline. In the ED patient ministered 1 L normal saline bolus as well as a Protonix bolus and a continuous infusion. ED discussed case with Dr. Barrera who will evaluate in consultation. [facility] Medical History Atherosclerosis of [place] coronary artery of [place] heart without angina pectoris Essential (primary) hypertension History of left heart catheterization (LHC) (~04/14/20) Nonrheumatic aortic (valve) stenosis Nonrheumatic mitral (valve) insufficiency Pure hypercholesterolemia Home Medications aspirin 81 mg tablet,delayed release (Adult Low Dose Aspirin) 81 mg PO DAILY heart health 07/09/19 [History Last Taken 12/03/22] amlodipine 5 mg tablet 5 mg PO DAILY #90 tabs 07/05/22 [Rx Last Taken 12/04/22] atenolol 25 mg tablet 25 mg PO DAILY blood pressure #90 tabs 07/05/22 [Rx Last Taken 12/04/22] atorvastatin 80 mg tablet 80 mg PO QHS cholesterol #90 tabs 07/05/22 [Rx Last Taken 12/03/22] clopidogrel 75 mg tablet 75 mg PO DAILY antiplatelet #90 tabs 07/05/22 [Rx Last Taken 12/03/22] ramipril 10 mg capsule 20 mg PO DAILY blood pressure #180 caps 07/05/22 [Rx Last Taken 12/04/22] Allergy/AdvReac Type Severity Reaction Status Date / Time codeine Allergy Intermediate nausea and Verified 12/04/22 12:06 vomiting Family History Father Myocardial infarction Mother Myocardial infarction Brother CAD (coronary artery disease) Hypertension Sister Hypertension Surgical History History of coronary artery stent placement (~03/11/08) History of hysterectomy History of left hip replacement History of open reduction and internal fixation (ORIF) procedure History of shoulder surgery History of tonsillectomy Social History (Updated 12/04/22 @ 15:[address] Vicki Barnes MD) household members: spouse Smoking Status: Current every day smoker tobacco type: cigarettes Smoking packs per day: 1 Smoking cigarettes per day: 20.0 alcohol intake: current alcohol intake frequency: holidays/special occasions only substance use type: does not use caffeine: Yes Type: coffee Number of servings: 5 ROS ROS Narrative Admission Review of Systems: CONSTITUTIONAL: No weight loss, fever, chills, + weakness or fatigue. HEENT: Eyes: No visual loss, blurred vision, double vision or yellow sclerae. Ears, Nose, Throat: No hearing loss, sneezing, congestion, runny nose or sore throat. SKIN: No rash or itching, lesions, wounds. CARDIOVASCULAR: No chest pain, chest pressure or chest discomfort, palpitations, edema, orthopnea, syncopal events. RESPIRATORY: No shortness of breath, cough or sputum, wheezing, hemoptysis. GASTROINTESTINAL: + Bright red blood and dark appearing black stools, abdominal pain/bloating/cramping, loost stools, no anorexia, nausea, vomiting. GE NITOURINARY: No dysuria, frequency, urgency or retention. NEUROLOGICAL: No headache, dizziness, syncope, paralysis, ataxia, numbness or tingling in the extremities, focal weakness, change in bowel or bladder control, seizure. MUSCULOSKELETAL: No muscle, back pain, joint pain or stiffness. HEMATOLOGIC: + anemia, bleeding or bruising. LYMPHATICS: No enlarged nodes. No history of splenectomy. PSYCHIATRIC: No history of depression or anxiety. ENDOCRINOLOGIC: No reports of sweating, cold or heat intolerance. No polyuria or polydipsia. ALLERGIES: No history of asthma, hives, eczema or rhinitis. Vital Signs Vital Signs Vital Signs: 12/04/22 12:04 Temperature 97.5 F L Temperature Source Temporal Pulse Rate 71 Respiratory Rate 16 Blood Pressure 162/87 H Blood Pressure Mean 112 Pulse Ox 97 Oxygen Delivery Method Room Air Weight Weight: 142 lb Body Mass Index (BMI) 22.2 Physical Exam Narrative Physical Examination: General: Awake, alert, oriented x 3 and cooperative, seated upright in the ED bed, fatigued and pale appearing. Skin: Pale color, normal turgor, no icterus, no cyanosis. HEENT: AT/NC, EOMI, PERRLA, mildly dry MM, no carotid bruits or JVD noted. Lungs: Mildly diminished, greater bases, mild crackles likely chronic at bases, occasional end expiratory wheeze, no rales or rhonchi. Heart: Currently regular rate and rhythm; no gallop, rub audible. Abdomen: Soft, discomfort to the right upper and lower quadrants with no specific rebound or guarding, no marked distention, mildly hyperactive bowel sounds, no obvious HSM. Extremities: No cyanosis, clubbing, or edema. Neurological: Patient awake, alert, oriented as noted, cognitive function intact; pupils equally reactive to light and accommodation, cranial nerves II- XII grossly normal, moving all 4 extremities, no focal deficits, strength mildly to moderately globally Basia secondary to acute complaints. Psychiatric: Affect appears fatigued otherwise normal, no acute evidence of depressive or anxiety feelings. Results Lab / Micro Data Result Diagrams: 12/04/22 12:15 12/04/22 12:15 Labs: Laboratory Results - last 24 hr 12/04/22 12:15: Blood Type O POSITIVE, Antibody Screen NEGATIVE 12/04/22 12:15: WBC 7.2, RBC 3.76 L, Hgb 11.7 L, Hct 34.5 L, MCV 91.8, MCH 31.1, MCHC 33.9, RDW Std Deviation 41.9, RDW Coeff of Ace 12.6, Plt Count 238, MPV 11.3, Immature Gran % (Auto) 0.300, Neut % (Auto) 72.5 H, Lymph % (Auto) 18.9 L, [place] % (Auto) 6.9, Eos % (Auto) 1.1, Baso % (Auto) 0.3, Absolute Neuts (auto) 5.2, Absolute Lymphs (auto) 1.35, Nucleated RBC % 0 12/04/22 12:15: Sodium 140, Potassium 4.0, Chloride 110 H, Carbon Dioxide 25.0, Anion Gap 5, BUN 18, Creatinine 0.56, Estim Creat Clear Calc 98.69, Est GFR (MDRD) Af Amer 139, Est GFR (MDRD) Non-Af 115, BUN/Creatinine Ratio 32.0 H, Glucose 113 H, Calcium 9.4 Radiology Impression Abdomen/Pelvis CT 12/04/22 12:30 IMPRESSION: Questionable tiny gallstones in the neck of the gallbladder. Fatty infiltration of the liver. Minimal dilatation of the central intrahepatic biliary ducts. Small right renal cysts. Sigmoid diverticulosis without evidence of diverticulitis. Electronically Signed: Dennis Chaidez MD at 13:50 EDT Reading Location ID and State: [address] [place] [address] , Service support , Assessment & Plan Assessment/Plan (1) Acute GI bleeding: PLAN: Plan The patient is a 62 y/o F w/ PMHx: CAD s/p PCI 2007, Valvular heart disease, HTN, HLD, COPD, Tobacco use who presents to the [facility] ED on 12/04/22 with history of bright red blood clots in her stool which eventually transition with a dark black appearing stools intermixed with nicki red blood prompting ED evaluation. #1. Acute GI Bleed with chronic normocytic anemia similar to previous, possible Diverticular associated: Given stable hemoglobin currently compared to prior and stable vital signs will admit to medical surgical floor, maintain on IVFs, cycle H&H's, type and screen already performed per ED physician, will maintain on IV PPI drip, temporarily holding antiplatelet therapy as noted will allow clears with n.p.o. status at midnight pending GI evaluation, gastroenterology consulted and pending. #2. Incidental evidence of tiny gallstones at the neck of the gallbladder: Incidentally noted on CT, will obtain liver panel to be cautious, no obvious etiology for current presentation, recommend follow-up outpatient for further evaluation as needed #3. CAD: Status post remote PCI 2007, we will temporarily hold patient's aspirin and Plavix with quick resumption of at least a single agent once cleared per gastroenterology, continue atenolol, ramipril and amlodipine with close BP m onitoring hold if necessary, continue statin therapy. #4. Hypertension: Continue home regimen including ramipril, atenolol, amlodipine while closely monitoring blood pressure given acute presentation with hold as needed, PRN hydralazine. #5. Hyperlipidemia: We will continue patient on statin therapy. #6. Chronic COPD: Patient is not on any chronic inhalers, will maintain on PRN albuterol, HOB, IS parameters. #7. Tobacco Abuse: Encouraged cessation, inpatient consultation per RT, NR if desired. #8. DVT prophylaxis: SCDs. #9. CODE status: Patient HANNAH is her who is present and living will is currently in place. Discussed CODE status at length including difference between FULL code, DNR-CCA and DNR-CC status. Following discussions about the differences in these status, requested Full Code status. Advanced Care Planning Face to Face Time: 16 minutes. Admission Evaluation Time spent evaluating chart, patient history, patient evaluation, care planning and discussion with specialists: 55 minutes. Charges/Coding Visit Charges Inpatient E&M: 26942 Init Hosp L2 Procedures Hospitalists Procedures: 80713 Advncd Care Plan 30 Min
--- NOTE | 2022-12-04 14:56 | NURSING ---
MED SURG OBS WHITE GI BLEEDING
[2022-12-04 15:12] VITALS: BP 137/67; PULSE 61; RESP 18; O2SAT 97
[2022-12-04 15:18] VITALS: BP 137/67; PULSE 61; RESP 18; TEMP 36.5; O2SAT 97
[2022-12-04 15:34] VITALS: BMI 22.2
[2022-12-04 15:40] VITALS: BP 117/74; PULSE 74; RESP 18; TEMP 36.8; O2SAT 98
[2022-12-04] MEDS: 0.9% Normal Saline 1,000 ML 100 ML IV (15:56)
--- NOTE | 2022-12-04 17:24 | CON.PCM.GI_ITS ---
HPI Consult Data Date of Consult: 12/04/22 HPI Narrative Reason for Consultation: GI bleed HPI Narrative: MARIAELENA STEPHENSON, is a 62 F who presents after having multiple episode of blood in her stool. Then she stated that her stools turned melanotic. Today she has had 3 or so episodes of bright red blood per rectum, that seem to get worse with each 1.? She also has chronic discomfort in the right lower part of her abdomen, and in the last several days that pain has been more prominent.? She feels a little nauseated right now, but other than the right now she has had no nausea or vomiting in the past several days.? No lightheadedness or feeling exceptionally weak.? She has a history of coronary artery disease status post PCI to her circumflex in 2007, hyperlipidemia, hypertension, aortic valve disease, and tobacco abuse.?Work-up in the ED included T97.5, heart rate 71, BP 162/87, respiratory rate 16, 97% on room air, CBC with WC 7.2, hemoglobin 1.7, MCV 91.8, platelets 238 without marked shift, BMP with chloride 110, glucose 113 otherwise not marked appearing, type and screen performed per ED physician, CT abdomen/pelvis with questionable tiny gallstones in the neck of the gallbladder, fatty infiltration of the liver, minimal dilatation of the central intrapelvic biliary ducts, small right renal cyst, sigmoid diverticulosis without any evidence of diverticulitis.? In the ED patient ministered 1 L normal saline. In the ED patient ministered 1 L normal saline bolus as well as a Protonix bolus and a continuous infusion. ED discussed case with Dr. Barrera who will evaluate in consultation. [facility] Medical History Atherosclerosis of [place] coronary artery of [place] heart without angina pectoris Essential (primary) hypertension History of left heart catheterization (LHC) (~04/14/20) Nonrheumatic aortic (valve) stenosis Nonrheumatic mitral (valve) insufficiency Pure hypercholesterolemia Home Medications aspirin 81 mg tablet,delayed release (Adult Low Dose Aspirin) 81 mg PO DAILY heart health 07/09/19 [History Last Taken 12/03/22] amlodipine 5 mg tablet 5 mg PO DAILY #90 tabs 07/05/22 [Rx Last Taken 12/04/22] atenolol 25 mg tablet 25 mg PO DAILY blood pressure #90 tabs 07/05/22 [Rx Last Taken 12/04/22] atorvastatin 80 mg tablet 80 mg PO QHS cholesterol #90 tabs 07/05/22 [Rx Last Taken 12/03/22] clopidogrel 75 mg tablet 75 mg PO DAILY antiplatelet #90 tabs 07/05/22 [Rx Last Taken 12/03/22] ramipril 10 mg capsule 20 mg PO DAILY blood pressure #180 caps 07/05/22 [Rx Last Taken 12/04/22] Allergy/AdvReac Type Severity Reaction Status Date / Time codeine Allergy Intermediate nausea and Verified 12/04/22 12:06 vomiting Family History Father Myocardial infarction Mother Myocardial infarction Brother CAD (coronary artery disease) Hypertension Sister Hypertension Surgical History History of coronary artery stent placement (~03/11/08) History of hysterectomy History of left hip replacement History of open reduction and internal fixation (ORIF) procedure History of shoulder surgery History of tonsillectomy Social History (Updated 12/04/22 @ 15:[address] Vicki Barnes MD) household members: spouse Smoking Status: Current every day smoker tobacco type: cigarettes Smoking packs per day: 1 Smoking cigarettes per day: 20.0 alcohol intake: current alcohol intake frequency: holidays/special occasions only substance use type: does not use caffeine: Yes Type: coffee Number of servings: 5 ROS ROS Narrative Admission Review of Systems: CONSTITUTIONAL: No weight loss, fever, chills, + weakness or fatigue. HEENT: Eyes: No visual loss, blurred vision, double vision or yellow sclerae. Ears, Nose, Throat: No hearing loss, sneezing, congestion, runny nose or sore throat. SKIN: No rash or itching, lesions, wounds. CARDIOVASCULAR: No chest pain, chest pressure or chest discomfort, palpitations, edema, orthopnea, syncopal events. RESPIRATORY: No shortness of breath, cough or sputum, wheezing, hemoptysis. GASTROINTESTINAL: + Bright red blood and dark appearing black stools, abdominal pain/bloating/cramping, loost stools, no anorexia, nausea, vomiting. GENITOURINARY: No dysuria, frequency, urgency or retention. NEUROLOGICAL: No headache, dizziness, syncope, paralysis, ataxia, numbness or tingling in the extremities, focal weakness, change in bowel or bladder control, seizure. MUSCULOSKELETAL: No muscle, back pain, joint pain or stiffness. HEMATOLOGIC: + anemia, bleeding or bruising. LYMPHATICS: No enlarged nodes. No history of splenectomy. PSYCHIATRIC: No history of depression or anxiety. ENDOCRINOLOGIC: No reports of sweating, cold or heat intolerance. No polyuria or polydipsia. ALLERGIES: No history of asthma, hives, eczema or rhinitis. Physical Exam Narrative Physical Examination: General: Awake, alert, oriented x 3 and cooperative, seated upright in the ED bed, fatigued and pale appearing. Skin: Pale color, normal turgor, no icterus, no cyanosis. HEENT: AT/NC, EOMI, PERRLA, mildly dry MM, no carotid bruits or JVD noted. Lungs: Mildly diminished, greater bases, mild crackles likely chronic at bases, occasional end expiratory wheeze, no rales or rhonchi. Heart: Currently regular rate and rhythm; no gallop, rub audible. Abdomen: Soft, discomfort to the right upper and lower quadrants with no specific rebound or guarding, no marked distention, mildly hyperactive bowel sounds, no obvious HSM. Extremities: No cyanosis, clubbing, or edema. Neurological: Patient awake, alert, oriented as noted, cognitive function intact; pupils equally reactive to light and accommodation, cranial nerves II- XII grossly normal, moving all 4 extremities, no focal deficits, strength mildly to moderately globally Basia secondary to acute complaints. Psychiatric: Affect appears fatigued otherwise normal, no acute evidence of depressive or anxiety feelings. Lab / Micro Data Result Diagrams: 12/04/22 12:15 12/04/22 12:15 Labs: Laboratory Results - last 24 hr 12/04/22 12:15: Blood Type O POSITIVE, Antibody Screen NEGATIVE 12/04/22 12:15: WBC 7.2, RBC 3.76 L, Hgb 11.7 L, Hct 34.5 L, MCV 91.8, MCH 31.1, MCHC 33.9, RDW Std Deviation 41.9, RDW Coeff of Ace 12.6, Plt Count 238, MPV 11.3, Immature Gran % (Auto) 0.300, Neut % (Auto) 72.5 H, Lymph % (Auto) 18.9 L, [place] % (Auto) 6.9, Eos % (Auto) 1.1, Baso % (Auto) 0.3, Absolute Neuts (auto) 5.2, Absolute Lymphs (auto) 1.35, Nucleated RBC % 0 12/04/22 12:15: Sodium 140, Potassium 4.0, Chloride 110 H, Carbon Dioxide 25.0, Anion Gap 5, BUN 18, Creatinine 0.56, Estim Creat Clear Calc 98.69, Est GFR (MDRD) Af Amer 139, Est GFR (MDRD) Non-Af 115, BUN/Creatinine Ratio 32.0 H, Glucose 113 H, Calcium 9.4 Radiology Impression Abdomen/Pelvis CT 12/04/22 12:30 IMPRESSION: Questionable tiny gallstones in the neck of the gallbladder. Fatty infiltration of the liver. Minimal dilatation of the central intrahepatic biliary ducts. Small right renal cysts. Sigmoid diverticulosis without evidence of diverticulitis. Electronically Signed: Dennis Chaidez MD at 13:50 EDT , Assessment & Plan Assessment/Plan (1) Acute GI bleeding: PLAN: 62-year-old woman with a history of coronary artery disease status post PCI to her circumflex in 2007, hyperlipidemia, hypertension, aortic valve disease, and tobacco abuse.? She is presenting with GI bleed. The differential diagnosis does include diverticular, ischemic colitis especially on the right side of the colon, angiodysplasia, upper GI bleed with rapid transit. Her hemoglobin is down to 11.7 from 14. Her antiplatelet therapy is on hold. She should likely undergo upper and lower endoscopy to evaluate upper and lower GI tract to make sure her to go up back on any platelet therapy. She does take aspirin and clopidogrel along with atorvastatin due to history of CAD.?Maintain on IVFs, cycle H&H's, type and screen already, will maintain on IV PPI drip, temporarily holding antiplatelet therapy. Charges/Coding Visit Charges Inpatient E&M: 03110 Init Hosp L3 Multi Select Codes Visit Charges Visit Charges: 63170 Init Hosp L3
[2022-12-04 18:27] LABS: Hematocrit 29.5 % (37-47); Hemoglobin 9.9 g/dL (12.0-15.0)
[2022-12-04] MEDS: Acetaminophen 325 MG Tablet 650 MG PO (19:01)
[2022-12-04 20:01] VITALS: BP 130/77; PULSE 58; RESP 16; TEMP 37.2; O2SAT 97
[2022-12-04] MEDS: Polyethylene Glycol 3350 BOWEL PREP PO (20:16)
[2022-12-04] MEDS: Atorvastatin Calcium 80 MG Tablet PO (21:11)
[2022-12-04 22:19] LABS: Hematocrit 31.4 % (37-47); Hemoglobin 10.4 g/dL (12.0-15.0)
[2022-12-04 23:01] VITALS: BMI 22.7
[2022-12-05] VITALS (14 sets, daily range): BP systolic 123–158; BP diastolic 68–91; PULSE 56–110; RESP 16–18; TEMP 36.6–37.4; O2SAT 90–97; BMI 21.8
--- NOTE | 2022-12-05 | EGD_PTH ---
PATIENT: MARIAELENA STEPHENSON LOC: MS3 U#:[id number] AGE/SX: 62/F ROOM: FL312 RE12/04/[address]: Dr. Christopher Butterfield MD : 1960 BED: 1 DIS: 12/06/2022 SPEC #: [id number] RECD: 12/06/22 09:21 STATUS: HEATHER ATWOOD #: [id number] JAZZMINE: 12/05/22 00:[address]: Willam Barrera DEPT: SURGICAL PATHOLOGY RECD BY: Librado Rubio ENTERED: 12/06/22 09:21 SP TYPE: EGD BIOPSY OTHR DR: MD Dr. Cora Wheeler MD Dr. Nicholas F Kotsonis, MD Tissues: Duodenum, NOS Procedures: Surgery Specimen Level IV Comments: @ Ordering doctor for SUIV edited from to @ by BESSIE at 12/06/22 1502 @ Submitting doctor edited from to @ by BESSIE at 12/06/22 1502 HEADER OPERATION: Colonoscopy, EGD (MAC), biopsy PRE-OP DIAGNOSIS: GI bleed TISSUE SUBMITTED: Duodenum MICROSCOPIC DIAGNOSIS Duodenum, biopsy: No pathologic change. AM:marcio 12/07/2022 MICROSCOPIC DESCRIPTION Slides are reviewed. GROSS DESCRIPTION Received in fixative is one container labeled with the patient's name and designated duodenum. The specimen consists of one irregular fragment of light lang soft tissue that measures 0.5 x 0.5 x 0.1 cm. The specimen is totally submitted in one cassette. / AM:marcio 12/06/2022 TC:5 CPT: 04989
[2022-12-05 01:02] LABS: Hematocrit 30.7 % (37-47); Hemoglobin 10.2 g/dL (12.0-15.0)
[2022-12-05] MEDS: 0.9% Normal Saline 1,000 ML 100 ML IV ×3 (02:10→18:37)
[2022-12-05] MEDS: Acetaminophen 325 MG Tablet 650 MG PO ×2 (03:00→21:04)
--- NOTE | 2022-12-05 06:00 | EKG12_ITS ---
Test Reason : AM EKG Blood Pressure : / mmHG Vent. Rate : 065 BPM Atrial Rate : 065 BPM P-R Int : 192 ms QRS Dur : 086 ms QT Int : 400 ms P-R-T Axes : 050 027 132 degrees QTc Int : 416 ms Normal sinus rhythm ST & T wave abnormality, consider lateral ischemia Abnormal ECG When compared with ECG of 14-APR-2020 04:33, T wave inversion less evident in Anterior leads T wave inversion now evident in Lateral leads Confirmed by PEPITO DE LEON, MARIO ([id number]), assistant production editor GRIS REYEZ ([id number]) on 12/06/2022 10:22:01 AM Referred By: DR DOWNS Confirmed By:SP BEYER MD
[2022-12-05 06:45] LABS: Absolute Lymphocyte Count 1.14 X10^3/uL (0.83-4.51); Basophil# 0.02 X10^3/uL; Basophil% 0.3 % (0-1); Eosinophil# 0.17 X10^3/uL; Eosinophils% 2.2 % (0-5); Hematocrit 27.3 % (37-47); Hemoglobin 9.2 g/dL (12.0-15.0); Lymphocyte # 1.14 X10^3/ul (0.83-4.51); Lymphocyte % 14.4 % (19-41); Mean Corp Hgb Conc 33.7 g/dL (32-36); Mean Corpuscular Hgb 31.8 pg (27.0-32.0); Mean Corpuscular Volume 94.5 fL (81-99); Monocyte# 0.58 X10^3/uL; Monocyte% 7.4 % (0-10); NRBC Flagged by Analyzer 0 % (0-5); Neutrophil # 5.95 X10^3/uL (2.7-7.7); Neutrophil % 75.3 % (47-70); Platelet Count 166 K/mm3 (150-450); RBC Distribution Width SD 44.8 fl (35.1-43.9); Red Blood Count 2.89 M/mm3 (4.2-5.4); White Blood Count 7.9 K/mm3 (4.4-11.0)
[2022-12-05 06:53] LABS: International Normalized Ratio 1.1; Prothrombin Time (Protime)PT. 14.1 SECONDS (11.7-14.9)
[2022-12-05 06:54] LABS: Partial Thromboplast Time 32.7 Seconds (24.1-36.2)
[2022-12-05 07:26] LABS: ALB/GLOB Ratio 1.2 RATIO (0.9-2.4); AST(SGOT) 19 U/L (15-37); Alanine Aminotransfer ALT/SGPT 24 U/L (13-56); Albumin, Serum 2.8 g/dL (3.2-5.0); Alkaline Phosphatase 57 U/L (45-117); Anion Gap 4 (5-15); BUN 11 mg/dL (7-18); BUN/Creat Ratio 19.5 RATIO (10-20); Calcium,Total 8.3 mg/dL (8.5-10.1); Chloride 117 mmol/L (98-107); Creatinine, Serum 0.56 mg/dL (0.55-1.02); EST Glomerular Filtration Rate 114 mL/min (>60); Est Glom Filt Rate - Afr Amer 139 mL/min (>60); Estimated Creatinine Clearance 98.69 ml/min; Globulin 2.4 g/dL (2.2-4.2); Glucose 105 mg/dL (74-106); Potassium 3.5 mmol/L (3.5-5.1); Protein, Total 5.2 g/dL (6.4-8.2); Sodium Level 144 mmol/L (136-145)
[2022-12-05] MEDS: Ramipril 10 MG Capsule 20 MG PO (09:37)
[2022-12-05] MEDS: Atenolol 25 MG Tablet PO (09:38)
[2022-12-05] MEDS: amLODIPine 5 MG Tablet PO (09:38)
--- NOTE | 2022-12-05 10:54 | PCM.PN.HOSP ---
Subjective Subjective Doing well, hemoglobin does continue to drop Objective Data Objective Data Vital Signs: Vital Signs Temp Pulse Resp BP Pulse Ox O2 Del Method 98.1 F 100 18 143/84 H 97 Room Air 12/05/22 09:51 12/05/22 10:00 12/05/22 09:51 12/05/22 09:51 12/05/22 09:51 12/05/22 10:00 Oxygen Delivery Method Room Air Weight: 145 lb 1.027 oz Body Mass Index (BMI) 22.7 Intake & Output: Intake and Output for Last 24 Hours 12/04/22 12/05/22 12/06/22 03:59 03:59 03:59 Intake Total 2810.17 / 2810.17 85 / 85 Balance 2810.17 / 2810.17 Lab / Micro Data Result Diagrams: 12/05/22 06:10 12/05/22 06:10 Labs: Laboratory Results - last 24 hr 12/04/22 12:15: Blood Type O POSITIVE, Antibody Screen NEGATIVE 12/04/22 12:15: WBC 7.2, RBC 3.76 L, Hgb 11.7 L, Hct 34.5 L, MCV 91.8, MCH 31.1, MCHC 33.9, RDW Std Deviation 41.9, RDW Coeff of Ace 12.6, Plt Count 238, MPV 11.3, Immature Gran % (Auto) 0.300, Neut % (Auto) 72.5 H, Lymph % (Auto) 18.9 L, [place] % (Auto) 6.9, Eos % (Auto) 1.1, Baso % (Auto) 0.3, Absolute Neuts (auto) 5.2, Absolute Lymphs (auto) 1.35, Nucleated RBC % 0 12/04/22 12:15: Sodium 140, Potassium 4.0, Chloride 110 H, Carbon Dioxide 25.0, Anion Gap 5, BUN 18, Creatinine 0.56, Estim Creat Clear Calc 98.69, Est GFR (MDRD) Af Amer 139, Est GFR (MDRD) Non-Af 115, BUN/Creatinine Ratio 32.0 H, Glucose 113 H, Calcium 9.4 12/04/22 17:24: Hgb 9.9 L, Hct 29.5 L 12/04/22 21:57: Hgb 10.4 L, Hct 31.4 L 12/05/22 00:53: Hgb 10.2 L, Hct 30.7 L 12/05/22 06:10: WBC 7.9, RBC 2.89 L, Hgb 9.2 L, Hct 27.3 L, MCV 94.5, MCH 31.8, MCHC 33.7, RDW Std Deviation 44.8 H, RDW Coeff of Ace 13.0, Plt Count 166, MPV 11.0, Immature Gran % (Auto) 0.400, Neut % (Auto) 75.3 H, Lymph % (Auto) 14.4 L, [place] % (Auto) 7.4, Eos % (Auto) 2.2, Baso % (Auto) 0.3, Absolute Neuts (auto) 6.0, Absolute Lymphs (auto) 1.14, Nucleated RBC % 0 12/05/22 06:10: Sodium 144, Potassium 3.5, Chloride 117 H, Carbon Dioxide 23.0, Anion Gap 4 L, BUN 11, Creatinine 0.56, Estim Creat Clear Calc 98.69, Est GFR (MDRD) Af Amer 139, Est GFR (MDRD) Non-Af 114, BUN/Creatinine Ratio 19.5, Glucose 105, Calcium 8.3 L, Total Bilirubin 0.50, AST 19, ALT 24, Alkaline Phosphatase 57, Total Protein 5.2 L, Albumin 2.8 L, Globulin 2.4, Albumin/Globulin Ratio 1.2 12/05/22 06:10: PT 14.1, INR 1.1, APTT 32.7 Radiography Diagnostic Testing: Radiology Impression Abdomen/Pelvis CT 12/04/22 12:30 IMPRESSION: Questionable tiny gallstones in the neck of the gallbladder. Fatty infiltration of the liver. Minimal dilatation of the central intrahepatic biliary ducts. Small right renal cysts. Sigmoid diverticulosis without evidence of diverticulitis. Electronically Signed: Dennis Chaidez MD at 13:50 EDT , Physical Exam Narrative General: Alert, Oriented x3, Cooperative, No apparent distress HEENT: Atraumatic, PERRLA, EOMI, Normocephalic Oral: Moist Mucosa Neck: Supple, No JVD Lungs: Diminished, Normal air movement, No rhonchi, No wheeze, No rales Cardiovascular: Regular rate, Regular Rhythm, Normal S1, Normal S2, No murmurs Abdomen: Soft, Non Tender, Non-Distended, No Hepato-splenomegaly Extremities: No edema, Capillary Refill Less than 3 Seconds Skin: No rashes, No breakdown Musculoskeletal: No Tenderness to Palpation of Joints or Extremities Neurological: Cranial nerves II-XII grossly intact, Motor Exam 5/5 strength throughout, Sensory exam intact to light touch and pain Psych/Mental Status: Normal Affect, Appropriate Assessment & Plan Assessment/Plan (1) Acute GI bleeding: PLAN: Plan 1. Acute GI bleed with chronic normocytic anemia ?Hemoglobin continues to trend downwards, will continue with PPI ? Continue with IV fluids and n.p.o. ? GI was consulted plan for EGD today 2. CAD status post stent/HTN/HLD/tobacco abuse ? We will hold her antiplatelet medications ? Can resume her home blood pressure medications ? Continue with her statin ? Encourage tobacco cessation 3. COPD ? Not in exacerbation ? Continue with her home inhalers DVT: SCDs Charges/Coding Visit Charges Inpatient E&M: 32625 Subs Hosp L2
--- NOTE | 2022-12-05 18:08 | OP.CCLET_ITS ---
12/05/2022 Cora Nguy[address]n [address] [place] [address] Re : Upper GI endoscopy procedure for Naheed Lynch Dear Dr. Nguyễn This procedure was performed on Monday, December 05, 2022. My impressions and recommendations are as follows: Impressions : - Normal esophagus. - Normal stomach. - A single bleeding angiodysplastic lesion in the duodenum. Treated with a heater probe. - Duodenitis. Biopsied. Recommendations : - Await pathology results. - Repeat upper endoscopy for surveillance. - Return to GI clinic. - Continue present medications. My findings are described in the full procedure note, which is enclosed. If I can be of further assistance, please feel free to contact me at . Sincerely, Willam Barrera, 12/05/2022 6:08:10 PM This report has been signed electronically.
--- NOTE | 2022-12-05 18:08 | OP.EGD_ITS ---
Patient Name: Naheed Lynch Procedure Date: 12/05/2022 5:13 PM Date of : 1960 Age: 62 Procedure: Upper GI endoscopy Indications: Epigastric abdominal pain, Hematochezia Providers: Willam Barrera DO Medicines: Monitored Anesthesia Care Complications: No immediate complications. Procedure: Pre-Anesthesia Assessment: - Prior to the procedure, a History and Physical was performed, and patient medications and allergies were reviewed. The patient is competent. The risks and benefits of the procedure and the sedation options and risks were discussed with the patient. All questions were answered and informed consent was obtained. Patient identification and proposed procedure were verified by the physician in the pre-procedure area. Mental Status Examination: alert and oriented. Airway Examination: normal oropharyngeal airway and neck mobility. Respiratory Examination: clear to auscultation. CV Examination: normal. Prophylactic Antibiotics: The patient does not require prophylactic antibiotics. Prior Anticoagulants: The patient has taken no previous anticoagulant or antiplatelet agents. ASA Grade Assessment: II - A patient with mild systemic disease. After reviewing the risks and benefits, the patient was deemed in satisfactory condition to undergo the procedure. The anesthesia plan was to use monitored anesthesia care (MAC). Immediately prior to administration of medications, the patient was re-assessed for adequacy to receive sedatives. The heart rate, respiratory rate, oxygen saturations, blood pressure, adequacy of pulmonary ventilation, and response to care were monitored throughout the procedure. The physical status of the patient was re-assessed after the procedure. After obtaining informed consent, the endoscope was passed under direct vision. Throughout the procedure, the patient's blood pressure, pulse, and oxygen saturations were monitored continuously. The colonoscope was introduced through the mouth, and advanced to the second part of duodenum. The upper GI endoscopy was accomplished without difficulty. The patient tolerated the procedure well. Scope In: 5:22:04 PM Scope Out: 5:25:22 PM Total Procedure Duration Time 0 hours 3 minutes 18 seconds Findings: The examined esophagus was normal. The entire examined stomach was normal. A single 6 mm angiodysplastic lesion with bleeding was found in the duodenal bulb. Coagulation for hemostasis using heater probe was successful. Segmental mild inflammation characterized by congestion (edema) and erythema was found in the duodenal bulb. Biopsies were taken with a cold forceps for histology. Impression: - Normal esophagus. - Normal stomach. - A single bleeding angiodysplastic lesion in the duodenum. Treated with a heater probe. - Duodenitis. Biopsied. Recommendation: - Await pathology results. - Repeat upper endoscopy for surveillance. - Return to GI clinic. - Continue present medications. Procedure Code(s): --- Professional --- 62410, 59, Esophagogastroduodenoscopy, flexible, transoral; with control of bleeding, any method 94369, 51, Esophagogastroduodenoscopy, flexible, transoral; with biopsy, single or multiple CPT copyright 2017 [employer]. All rights reserved. The codes documented in this report are preliminary and upon credit checker review may be revised to meet current compliance requirements. Willam Barrera DO 12/05/2022 6:08:10 PM This report has been signed electronically. Number of Addenda: 0 Note Initiated On: 12/05/2022 5:13 PM
--- NOTE | 2022-12-05 18:21 | OP.COLON_ITS ---
Patient Name: Naheed Lynch Procedure Date: 12/05/2022 5:25 PM Date of : 1960 Age: 62 Procedure: Colonoscopy Indications: Hematochezia Providers: Willam Barrera DO Medicines: Monitored Anesthesia Care Patient Profile: This is a 62 year old female. Refer to note in patient chart for documentation of history and physical. Last Colonoscopy: within the past 3 years. Complications: No immediate complications. Procedure: Pre-Anesthesia Assessment: - Prior to the procedure, a History and Physical was performed, and patient medications and allergies were reviewed. The patient is competent. The risks and benefits of the procedure and the sedation options and risks were discussed with the patient. All questions were answered and informed consent was obtained. Patient identification and proposed procedure were verified by the physician in the pre-procedure area. Mental Status Examination: alert and oriented. Airway Examination: normal oropharyngeal airway and neck mobility. Respiratory Examination: clear to auscultation. CV Examination: normal. Prophylactic Antibiotics: The patient does not require prophylactic antibiotics. Prior Anticoagulants: The patient has taken no previous anticoagulant or antiplatelet agents. ASA Grade Assessment: II - A patient with mild systemic disease. After reviewing the risks and benefits, the patient was deemed in satisfactory condition to undergo the procedure. The anesthesia plan was to use monitored anesthesia care (MAC). Immediately prior to administration of medications, the patient was re-assessed for adequacy to receive sedatives. The heart rate, respiratory rate, oxygen saturations, blood pressure, adequacy of pulmonary ventilation, and response to care were monitored throughout the procedure. The physical status of the patient was re-assessed after the procedure. After I obtained informed consent, the scope was passed under direct vision. Throughout the procedure, the patient's blood pressure, pulse, and oxygen saturations were monitored continuously. The colonoscope was introduced through the anus and advanced to the cecum, identified by appendiceal orifice and ileocecal valve. The colonoscopy was performed without difficulty. The patient tolerated the procedure well. The quality of the bowel preparation was fair. Scope In: 5:30:08 PM Scope Withdrawal Time 0 hours 14 minutes 35 seconds Scope Out: 5:53:13 PM Total Procedure Duration Time 0 hours 23 minutes 5 seconds Findings: The perianal and digital rectal examinations were normal. Segmental inflammation characterized by erosions, erythema and friability was found in the ascending colon. Biopsies were taken with a cold forceps for histology. Multiple small and large-mouthed diverticula were found in the entire colon. There was evidence of recent bleeding from the diverticular opening. Impression: - Preparation of the colon was fair. - Segmental inflammation was found in the ascending colon secondary to colitis. Biopsied. - Moderate diverticulosis in the entire examined colon. There was evidence of recent bleeding from the diverticular opening. Recommendation: - [facility] care. - Resume regular diet. - Continue present medications. - Await pathology results. - No repeat colonoscopy. Procedure Code(s): --- Professional --- 76488, Colonoscopy, flexible; with biopsy, single or multiple CPT copyright 2017 [employer]. All rights reserved. The codes documented in this report are preliminary and upon life skills instructor review may be revised to meet current compliance requirements. Willam Barrera DO 12/05/2022 6:20:58 PM This report has been signed electronically. Number of Addenda: 0 Note Initiated On: 12/05/2022 5:25 PM
--- NOTE | 2022-12-05 18:22 | OP.CCLET_ITS ---
12/05/2022 Cora Nguyễn [address] [place] [address] Re : Colonoscopy procedure for Naheed Lynch Dear Dr. Nguyễn This procedure was performed on Monday, December 05, 2022. My impressions and recommendations are as follows: Impressions : - Preparation of the colon was fair. - Segmental inflammation was found in the ascending colon secondary to colitis. Biopsied. - Moderate diverticulosis in the entire examined colon. There was evidence of recent bleeding from the diverticular opening. Recommendations : - Return patient to [facility] care. - Resume regular diet. - Continue present medications. - Await pathology results. - No repeat colonoscopy. My findings are described in the full procedure note, which is enclosed. If I can be of further assistance, please feel free to contact me at . Sincerely, Willam Barrera, 12/05/2022 6:20:58 PM This report has been signed electronically.
[2022-12-05] MEDS: 0.9% Saline Lock 10 ML Syringe IV (18:48)
[2022-12-05] MEDS: Atorvastatin Calcium 80 MG Tablet PO (20:59)
[2022-12-06 02:09] VITALS: BP 147/85; PULSE 62; RESP 16; TEMP 36.8; O2SAT 96
[2022-12-06 05:18] VITALS: BMI 22.1
--- NOTE | 2022-12-06 05:19 | NURSING ---
Patient very frustrated with iv pump beeping. Requesting to be saline locked at this time. Considering AMA but did agree to stay and see what morning lab work shows.
[2022-12-06 06:08] LABS: Absolute Lymphocyte Count 1.34 X10^3/uL (0.83-4.51); Absolute Neutrophil Count 3.3 X10^3/uL (2.0-7.7); Basophil# 0.03 X10^3/uL; Basophil% 0.5 % (0-1); Eosinophil# 0.21 X10^3/uL; Eosinophils% 3.8 % (0-5); Hematocrit 29.9 % (37-47); Hemoglobin 9.7 g/dL (12.0-15.0); Lymphocyte # 1.34 X10^3/ul (0.83-4.51); Lymphocyte % 24.5 % (19-41); Mean Corp Hgb Conc 32.4 g/dL (32-36); Mean Corpuscular Hgb 30.9 pg (27.0-32.0); Mean Corpuscular Volume 95.2 fL (81-99); Mean Platelet Vol. 11.3 fl (6.2-12.0); Monocyte# 0.55 X10^3/uL; NRBC Flagged by Analyzer 0 % (0-5); Neutrophil # 3.32 X10^3/uL (2.7-7.7); Neutrophil % 60.7 % (47-70); Platelet Count 195 K/mm3 (150-450); RBC Distribution Width CV 12.7 % (11.6-14.6); RBC Distribution Width SD 44.1 fl (35.1-43.9); Red Blood Count 3.14 M/mm3 (4.2-5.4); White Blood Count 5.5 K/mm3 (4.4-11.0)
[2022-12-06 06:32] LABS: Anion Gap 8 (5-15); BUN 7 mg/dL (7-18); Calcium,Total 8.5 mg/dL (8.5-10.1); Chloride 112 mmol/L (98-107); Creatinine, Serum 0.58 mg/dL (0.55-1.02); EST Glomerular Filtration Rate 111 mL/min (>60); Est Glom Filt Rate - Afr Amer 134 mL/min (>60); Estimated Creatinine Clearance 95.29 ml/min; Glucose 107 mg/dL (74-106); Potassium 3.2 mmol/L (3.5-5.1); Sodium Level 144 mmol/L (136-145)
[2022-12-06 07:35] VITALS: O2SAT 94
--- NOTE | 2022-12-06 07:35 | CPS ---
Pt refusing PEP & I.S., says she will not do it and is getting discharged today.
[2022-12-06 08:00] VITALS: BP 156/81; PULSE 62; RESP 16; TEMP 36.7; O2SAT 93
[2022-12-06] MEDS: Potassium Chloride Oral Tablet 20 MEQ 40 MEQ PO (08:20)
[2022-12-06] MEDS: Atenolol 25 MG Tablet PO (08:21)
[2022-12-06] MEDS: Ramipril 10 MG Capsule 20 MG PO (08:21)
[2022-12-06] MEDS: amLODIPine 5 MG Tablet PO (08:21)
--- NOTE | 2022-12-06 09:02 | DCINST_ITS ---
Discharge Instructions Diet Discharge Diet: Low fat / Low cholesterol Activity Discharge Activity: Return to Normal Activity Dressing / Incision Call your doctor if you observe: Fever of 101 or Higher, Shortness of breath, Dizziness, Fainting spells, Swelling in the ankles, Chest pain and Increased palpitations (irregular heartbeat) Follow Up Care Test Results: Test results from this visit will be discussed in further detail at your follow- up appointment, if applicable. Discharge Plan Admission Admit Date/Time: 12/04/22 14:59 Attending Provider: Christopher Butterfield Primary Care Provider: Cora Nguyễn Consulting Providers: Vicki Barnes Instructions Additional Instructions / Restrictions: Follow-up with your PCP in 3 to 5 days to obtain a CBC to monitor your hemoglobin secondary to your GI bleed Discharge Orders/Prescriptions Prescriptions: New pantoprazole [Protonix] 40 mg tablet,delayed release (DR/EC) 40 mg PO BID 30 Days Qty: 60 0RF Continued amlodipine 5 mg tablet 5 mg PO DAILY Qty: 90 3RF atenolol 25 mg tablet 25 mg PO DAILY Qty: 90 3RF atorvastatin 80 mg tablet 80 mg PO QHS Qty: 90 3RF ramipril 10 mg capsule 20 mg PO DAILY Qty: 180 3RF Held aspirin [Adult Low Dose Aspirin] 81 mg tablet,delayed release (DR/EC) 81 mg PO DAILY Hold Instructions: Resume on 12/11/22. clopidogrel 75 mg tablet 75 mg PO DAILY Qty: 90 3RF Hold Instructions: Resume on 12/11/22. Referrals / Follow Up: Cora Nguyễn MD [Primary Care Provider] - Within 1 Week FriendWillam DO [Med Staff - Active Staff] - Within 1 Month Disposition Disposition (needs filled in before D/C Order can be placed): Home, Self Care
--- NOTE | 2022-12-06 11:19 | PCM.DC.SUM ---
Providers Date of Admission: 12/04/22 Primary Care Physician: Dr. Cora Nguyễn MD Consultations 12/04/22 15:37 Consult: Gastroenterology Routine Consulting Provider: [facility] Reason for Consult: GI bleed EMERGENT Consult: No MD Notified: Yes Date Notified: 12/04/22 Time Notified: 14:59 Method of Notification: ED Physician Initiated Reason For Visit: GI BLEED Diagnosis Discharge Diagnosis (1) Acute GI bleeding: Status: Acute Code(s): K92.2 - Gastrointestinal hemorrhage, unspecified Medications at Discharge Home Medications aspirin 81 mg tablet,delayed release (Adult Low Dose Aspirin) 81 mg PO DAILY [facility] 07/09/19 amlodipine 5 mg tablet 5 mg PO DAILY #90 tabs 07/05/22 atenolol 25 mg tablet 25 mg PO DAILY blood pressure #90 tabs 07/05/22 atorvastatin 80 mg tablet 80 mg PO QHS cholesterol #90 tabs 07/05/22 clopidogrel 75 mg tablet 75 mg PO DAILY antiplatelet #90 tabs 07/05/22 ramipril 10 mg capsule 20 mg PO DAILY blood pressure #180 caps 07/05/22 pantoprazole 40 mg tablet,delayed release (Protonix) 40 mg PO BID 30 days #60 tabs 12/06/22 Hospital Course Operations None Procedures Colonoscopy and EGD Summary of Care Provided Minutes Spent on Discharge: 36 Hospital Course: Per HPI: The patient is a 62 y/o F w/ PMHx: CAD s/p PCI 2007, Valvular heart disease, HTN, HLD, COPD, Tobacco use who presents to the [facility] ED on 12/04/22 with history of bright red blood clots in her stool which eventually transition with a dark black appearing stools intermixed with nicki red blood prompting ED evaluation with associated abdominal discomfort with cramping, bloating sensation as well as pain primarily to the right upper and lower quadrants, worse with palpation which has been ongoing since onset of alteration of stools as well as loose stools since the beginning with reportedly at least 6 stools although primarily blood on day of presentation since 7 AM.? She rates her abdominal discomfort at 4 out of 10 in severity. Work-up in the ED included T97.5, heart rate 71, BP 162/87, respiratory rate 16, 97% on room air, CBC with WC 7.2, hemoglobin 1.7, MCV 91.8, platelets 238 without marked shift, BMP with chloride 110, glucose 113 otherwise not marked appearing, type and screen performed per ED physician, CT abdomen/pelvis with questionable tiny gallstones in the neck of the gallbladder, fatty infiltration of the liver, minimal dilatation of the central intrapelvic biliary ducts, small right renal cyst, sigmoid diverticulosis without any evidence of diverticulitis.? In the ED patient ministered 1 L normal saline. In the ED patient ministered 1 L normal saline bolus as well as a Protonix bolus and a continuous infusion. ED discussed case with Dr. Barrera who will evaluate in consultation. Hospital Course: 1. Acute GI bleed with chronic normocytic anemia ?Hemoglobin continues to trend downwards, will continue with PPI ? Continue with IV fluids and n.p.o. ? 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 Hemoglobin globin is stable at 9.7, I discussed with her the possibility for discharge she expressed understanding of the risk and benefits and wanted to go home. I do recommend that she follow-up with her PCP in 3 to 5 days and gastroenterology in a month. I do recommend twice daily PPI. Will also hold her aspirin and Plavix as her stent was several years ago she can restart in a few days as indicated on the discharge instructions. 2. CAD status post stent/HTN/HLD/tobacco abuse ? We will hold her antiplatelet medications ? Can resume her home blood pressure medications ? Continue with her statin ? Encourage tobacco cessation 3. COPD ? Not in exacerbation ? Continue with her home inhalers Physical Exam Narrative General: Alert, Oriented x3, Cooperative, No apparent distress HEENT: Atraumatic, PERRLA, EOMI, Normocephalic Oral: Moist Mucosa Neck: Supple, No JVD Lungs: Diminished, Normal air movement, No rhonchi, No wheeze, No rales Cardiovascular: Regular rate, Regular Rhythm, Normal S1, Normal S2, No murmurs Abdomen: Soft, Non Tender, Non-Distended, No Hepato-splenomegaly Extremities: No edema, Capillary Refill Less than 3 Seconds Skin: No rashes, No breakdown Musculoskeletal: No Tenderness to Palpation of Joints or Extremities Neurological: Cranial nerves II-XII grossly intact, Motor Exam 5/5 strength throughout, Sensory exam intact to light touch and pain Psych/Mental Status: Normal Affect, Appropriate Weight / BMI Weight Weight: 141 lb 12.116 oz Body Mass Index (BMI) 22.1 ABG / Lab / Microbiology Data Result Diagrams: 12/06/22 05:25 12/06/22 05:25 Laboratory: Laboratory Results - last 24 hr 12/06/22 05:25: WBC 5.5, RBC 3.14 L, Hgb 9.7 L, Hct 29.9 L, MCV 95.2, MCH 30.9, MCHC 32.4, RDW Std Deviation 44.1 H, RDW Coeff of Ace 12.7, Plt Count 195, MPV 11.3, Immature Gran % (Auto) 0.500, Neut % (Auto) 60.7, Lymph % (Auto) 24.5, [place] % (Auto) 10.0, Eos % (Auto) 3.8, Baso % (Auto) 0.5, Absolute Neuts (auto) 3.3, Absolute Lymphs (auto) 1.34, Nucleated RBC % 0 12/06/22 05:25: Sodium 144, Potassium 3.2 L, Chloride 112 H, Carbon Dioxide 24.0, Anion Gap 8, BUN 7, Creatinine 0.58, Estim Creat Clear Calc 95.29, Est GFR (MDRD) Af Amer 134, Est GFR (MDRD) Non-Af 111, BUN/Creatinine Ratio 12.0, Glucose 107 H, Calcium 8.5 D/C Instructions Discharge Diet: Low fat / Low cholesterol Call your doctor if you observe: Fever of 101 or Higher, Shortness of breath, Dizziness, Fainting spells, Swelling in the ankles, Chest pain and Increased palpitations (irregular heartbeat) Meaningful Use Info Meaningful Use Diagnoses (Choose all that apply): None applicable Discharge Plan Admission Admit Date/Time: 12/04/22 14:59 Attending Provider: Christopher Butterfield Primary Care Provider: Cora Nguyễn Consulting Providers: Vicki Barnes Instructions Additional Instructions / Restrictions: Follow-up with your PCP in 3 to 5 days to obtain a CBC to monitor your hemoglobin secondary to your GI bleed Discharge Orders/Prescriptions Prescriptions: New pantoprazole [Protonix] 40 mg tablet,delayed release (DR/EC) 40 mg PO BID 30 Days Qty: 60 0RF Continued amlodipine 5 mg tablet 5 mg PO DAILY Qty: 90 3RF atenolol 25 mg tablet 25 mg PO DAILY Qty: 90 3RF atorvastatin 80 mg tablet 80 mg PO QHS Qty: 90 3RF ramipril 10 mg capsule 20 mg PO DAILY Qty: 180 3RF Held aspirin [Adult Low Dose Aspirin] 81 mg tablet,delayed release (DR/EC) 81 mg PO DAILY Hold Instructions: Resume on 12/11/22. clopidogrel 75 mg tablet 75 mg PO DAILY Qty: 90 3RF Hold Instructions: Resume on 12/11/22. Referrals / Follow Up: Cora Nguyễn MD [Primary Care Provider] - Within 1 Week Willam Barrera DO [Med Staff - Active Staff] - Within 1 Month Disposition Disposition (needs filled in before D/C Order can be placed): Home, Self Care Charges/Coding Visit Charges Inpatient E&M: 10317 Disch Hosp >30min
== END 2022-12-06 09:15 | disposition home or self-care (01) ==
LOC: ED 14:15 → MS3 15:25
PROVIDERS: Anesthesiology; Internal Medicine Gastroenterology; Admitting Provider Family Medicine; Emergency Provider Emergency Medicine; PCP Internal Medicine; Visit Provider Family Medicine
PROC: 0DJD8ZZ Inspection of Lower Intestinal Tract, Via Natural or Artificial Opening Endoscopic (ICD-10-PCS; CPT 45378; principal; 2022-12-05 16:10)
DX: K31.811 Angiodysplasia of stomach and duodenum with bleeding (principal); J44.9 Chronic obstructive pulmonary disease, unspecified; K92.2 Gastrointestinal hemorrhage, unspecified; Z79.02 Long term (current) use of antithrombotics/antiplatelets; I10 Essential (primary) hypertension; E78.00 Pure hypercholesterolemia, unspecified; I25.10 Atherosclerotic heart disease of native coronary artery without angina pectoris; K52.9 Noninfective gastroenteritis and colitis, unspecified; F17.210 Nicotine dependence, cigarettes, uncomplicated; K57.30 Diverticulosis of large intestine without perforation or abscess without bleeding; Z79.82 Long term (current) use of aspirin; D64.9 Anemia, unspecified; Z79.899 Other long term (current) drug therapy; R94.31 Abnormal electrocardiogram [ECG] [EKG]
CPT/HCPCS: 43239; 45380; 43255; 36415; 74177; 80048; 80053; 85014; 85018; 85025; 85610; 85730; 86850; 86900; 86901; 88305; 93005; 94668; 96361; 96365; 96366; 99221; 99283; 99406; J7030; Q9967; A4216; G0378; J3490

== ENCOUNTER → 2023-08-02 | Outpatient (CLI) | payer BC, SELFPAY ==
--- NOTE | 2023-08-02 10:42 | ECHOD_ITS ---
Reason For Study: EVALUATE Procedure This was a 2D Doppler, Color Flow transthoracic echocardiogram. Exam performed in department. Left Ventricle Normal LV size. Left ventricular systolic function is normal. The estimated ejection fraction is 55 %. Stage 1 diastolic dysfunction. No regional wall motion abnormalities noted. Right Ventricle Normal RV size. Normal systolic function. Atria Normal left atrium. Normal right atrium. Mitral Valve Normal mitral valve. Tricuspid Valve Normal tricuspid valve. Aortic Valve Trisinus/trileaflet aortic valve. Peak aortic valve gradient 30.8 mmHg. Mean aortic valve gradient 17 mmHg. Mild aortic stenosis. Mild (1+) aortic valve insufficiency. Pericardium/Pleural No pericardial effusion. MMode/2D Measurements & Calculations LVIDd: 4.4 cm IVSd: 1.2 cm LVOT diam: 2.1 cm LVIDs: 3.0 cm LVPWd: 1.1 cm LVOT area: 3.5 cm2 RVDd: 4.4 cm FS: 32.3 % Ao root diam: 3.5 cm LAV(MOD-bp): 73.0 ml LVAd ap4: 27.9 cm2 LAV(MOD-bp) Indexed: 41.7 ml/m2 LVLd ap4: 7.9 cm LAV(MOD-sp2): 71.6 ml EDV(MOD-sp4): 80.7 ml LAV(MOD-sp4): 58.0 ml EDV(sp4-el): 83.4 ml LVAs ap4: 16.9 cm2 LVLs ap4: 6.2 cm ESV(MOD-sp4): 37.8 ml ESV(sp4-el): 39.1 ml EF(MOD-sp4): 53.2 % EF(sp4-el): 53.1 % SV(MOD-sp4): 42.9 ml SV(sp4-el): 44.3 ml LA A4 area: 17.9 cm2 LA dimension(2D): 4.1 cm TAPSE: 2.2 cm RA A4 area: 13.2 cm2 Time Measurements MV dec time: 0.33 sec Doppler Measurements & Calculations MV E max ventura: 78.2 cm/sec Lat Peak E' Ventura: 4.1 cm/sec Med Peak E' Ventura: 3.6 cm/sec MV A max ventura: 104.4 cm/sec E/E' lat: 19.0 E/E' med: 21.8 MV E/A: 0.75 MV V2 max: 105.4 cm/sec Ao V2 max: 275.9 cm/sec MV max P.5 mmHg MV dec slope: 242.0 cm/sec2 Ao max P.8 mmHg MV V2 mean: 48.4 cm/sec Ao V2 mean: 196.3 cm/sec MV mean P.2 mmHg Ao mean P.3 mmHg MV V2 VTI: 30.0 cm Ao V2 VTI: 70.0 cm AV (velocity ratio): 0.52 MVA(VTI): 4.2 cm2 ADRY(I,D): 1.8 cm2 ADRY(V,D): 1.5 cm2 AI max ventura: 401.4 cm/sec LV V1 max: 122.0 cm/sec SV(LVOT): 125.2 ml AI max P.5 mmHg LV V1 max P.0 mmHg AI dec slope: 168.9 cm/sec2 LV V1 mean P.9 mmHg AI P1/2t: 696.1 msec LV V1 mean: 93.4 cm/sec LV V1 VTI: 36.2 cm PA V2 max: 88.6 cm/sec PA V2 mean: 62.3 cm/sec ECHO/Echo Complete Interpretation Summary Normal LV size. Left ventricular systolic function is normal. The estimated ejection fraction is 55 %. Stage 1 diastolic dysfunction. Mean aortic valve gradient 17 mmHg. Mild (1+) aortic valve insufficiency. Peak aortic valve gradient 30.8 mmHg. Mild aortic stenosis. Ordering Physician: Abdulaziz Pizarro Referring Physician: Abdulaziz Pizarro Performed By: Mara Pickering RCS
== END | disposition home or self-care (01) ==
LOC: CVS 10:41
PROVIDERS: PCP Nurse Practitioner; Referring Provider Nurse Practitioner Family; Visit Provider Nurse Practitioner Family
DX: I38 Endocarditis, valve unspecified (principal); Z95.5 Presence of coronary angioplasty implant and graft; I10 Essential (primary) hypertension; E78.00 Pure hypercholesterolemia, unspecified
CPT/HCPCS: 93306

== ENCOUNTER → 2024-03-29 | Outpatient (CLI) | payer BC, SELFPAY ==
[2024-03-29 12:24] LABS: Anion Gap 2 (5-15); BUN 15 mg/dL (7-18); BUN/Creat Ratio 22.3 RATIO (10-20); Calcium,Total 9.4 mg/dL (8.5-10.1); Chloride 107 mmol/L (98-107); Creatinine, Serum 0.67 mg/dL (0.55-1.02); EST Glomerular Filtration Rate 93 mL/min (>60); Est Glom Filt Rate - Afr Amer 113 mL/min (>60); Glucose 108 mg/dL (74-106); Potassium 4.1 mmol/L (3.5-5.1); Sodium Level 137 mmol/L (136-145)
== END | disposition home or self-care (01) ==
LOC: LAB 11:19
PROVIDERS: PCP Nurse Practitioner; Referring Provider Physician Assistant Medical; Visit Provider Physician Assistant Medical
DX: R60.9 Edema, unspecified (principal)
CPT/HCPCS: 36415; 80048

== ENCOUNTER → 2024-05-09 | Outpatient (CLI) | payer BC, SELFPAY ==
[2024-05-09 09:53] LABS: Absolute Lymphocyte Count 1.28 X10^3/uL (0.83-4.51); Basophil# 0.04 X10^3/uL; Basophil% 0.6 % (0-1); Eosinophil# 0.21 X10^3/uL; Eosinophils% 2.9 % (0-5); Hematocrit 37.2 % (37-47); Hemoglobin 12.5 g/dL (12.0-15.0); Lymphocyte # 1.28 X10^3/ul (0.83-4.51); Lymphocyte % 17.6 % (19-41); Mean Corp Hgb Conc 33.6 g/dL (32-36); Mean Corpuscular Hgb 30.5 pg (27.0-32.0); Mean Corpuscular Volume 90.7 fL (81-99); Mean Platelet Vol. 10.7 fl (6.2-12.0); Monocyte# 0.67 X10^3/uL; Monocyte% 9.2 % (0-10); NRBC Flagged by Analyzer 0 % (0-5); Neutrophil # 4.98 X10^3/uL (2.7-7.7); Neutrophil % 68.5 % (47-70); Platelet Count 213 K/mm3 (150-450); RBC Distribution Width CV 12.5 % (11.6-14.6); RBC Distribution Width SD 41.5 fl (35.1-43.9); RET-HE 33.7 pg (30-35); Reticulocyte Count 2.18 % (0.5-1.5); White Blood Count 7.3 K/mm3 (4.4-11.0)
[2024-05-09 10:57] LABS: ALB/GLOB Ratio 0.9 RATIO (0.9-2.4); AST(SGOT) 19 U/L (15-37); Alanine Aminotransfer ALT/SGPT 27 U/L (13-56); Albumin, Serum 3.2 g/dL (3.2-5.0); Alkaline Phosphatase 76 U/L (45-117); Anion Gap 6 (5-15); BUN 20 mg/dL (7-18); BUN/Creat Ratio 28.5 RATIO (10-20); Calcium,Total 9.4 mg/dL (8.5-10.1); Chloride 107 mmol/L (98-107); EST Glomerular Filtration Rate 89 mL/min (>60); Est Glom Filt Rate - Afr Amer 107 mL/min (>60); Ferritin 58 ng/mL (8-252); Globulin 3.4 g/dL (2.2-4.2); Glucose 112 mg/dL (74-106); Iron 122 ug/dL (50-170); Iron Binding Capacity,Total 295 ug/dL (250-450); LDH 161 U/L (84-246); Potassium 4.1 mmol/L (3.5-5.1); Protein, Total 6.6 g/dL (6.4-8.2); Sodium Level 137 mmol/L (136-145)
[2024-05-12 16:09] LABS: Albumin 3.3 g/dL (2.9-4.4); Alpha-1-Globulins 0.3 g/dL (0.0-0.4); Alpha-2-Globulins 0.6 g/dL (0.4-1.0); Endomysial Antibody IgA Negative (Negative); Gamma Globulin 1.1 g/dL (0.4-1.8); Haptoglobin 65 mg/dL (37-355); Immunoglobulin A 101 mg/dL (87-352); Immunoglobulin G 738 mg/dL (586-1602); Immunoglobulin M 509 mg/dL (26-217); PROEL- TOTAL PROTEIN 6.1 g/dL (6.0-8.5); t-Transglutaminase IgA <2 U/mL (0-3)
== END | disposition home or self-care (01) ==
LOC: LAB 09:00
PROVIDERS: PCP Nurse Practitioner
DX: K92.2 Gastrointestinal hemorrhage, unspecified (principal)
CPT/HCPCS: 36415; 80053; 82728; 82784; 83010; 83516; 83540; 83550; 83615; 84165; 85025; 85045; 86255; 86334

== ENCOUNTER → 2024-05-09 | Outpatient (CLI) | payer BC, SELFPAY ==
--- NOTE | 2024-05-09 10:19 | CT_ITS ---
STUDY: CTA ABDOMEN AND PELVIS WITH CONTRAST REASON FOR EXAM: Female, 64 years old. Lower GIB RADIATION DOSAGE (If Supplied By Facility): CTDIvol = ( 23.51 ) mGy, DLP = ( 621.04 ) mGycm TECHNIQUE: Transaxial images were obtained from the dome of the diaphragm to the symphysis pubis without oral contrast. IV 100mL Isovue-370 was administered. Sagittal and coronal images were reconstructed. 3-D images were reconstructed. Individualized dose optimization techniques were used for this CT. COMPARISON: Comparison is made with prior study December 04, 2022. FINDINGS: Minimal increased markings at the right lung base suggestive of atelectasis and/or scarring. Minimal coronary calcification. There is decreased attenuation of the liver consistent with steatosis. Normal gallbladder and extrahepatic biliary system. Normal spleen. Normal pancreas. Normal bilateral adrenal glands. Stable small cysts in the right kidney. Normal left kidney. Normal visualized stomach. Normal small intestine. There are multiple colonic diverticula consistent with diverticulosis. There is non-visualization of the appendix. There is diffuse atherosclerotic calcification of the abdominal aorta, without a demonstrated aneurysm. Normal inferior vena cava. Normal retroperitoneum. Normal urinary bladder. There is absence of the uterus consistent with a prior hysterectomy. Normal abdominal wall. There are degenerative changes of the visualized lumbar spine. Status post left hip replacement. CT/CTA Abd/Pelvis W/WO Contrast IMPRESSION: Fatty infiltration of the liver. Sigmoid diverticulosis. Electronically Signed: Dennis Chaidez MD at 11:46 EDT ,
[2024-05-09 10:43] LABS: CREATININE FINGERSTICK < 1.0 mg/dL (0.55-1.02); EGFR FINGERSTICK > 60.0000 mL/min (>60)
== END | disposition home or self-care (01) ==
LOC: CT 10:18
PROVIDERS: PCP Nurse Practitioner
DX: K92.2 Gastrointestinal hemorrhage, unspecified (principal)
CPT/HCPCS: 74174; Q9967

== ENCOUNTER 2024-06-16 09:58 | Day surgery (SDC) | payer BC, SELFPAY ==
[2024-06-16] VITALS (8 sets, daily range): BP systolic 92–124; BP diastolic 59–69; PULSE 50–64; RESP 16–17; TEMP 36.2–36.7; O2SAT 94–97; BMI 23.1
--- NOTE | 2024-06-16 | IMM_PTH ---
PATIENT: MARIAELENA STEPHENSON LOC: EN U#:[id number] AGE/SX: 64/F ROOM: RE06/16/[address]: Dr. Willam Barrera DO : 1960 BED: DIS: 06/16/2024 SPEC #: [id number] RECD: 06/16/24 14:36 STATUS: [facility]ER REQ #: [id number] JAZZMINE: 06/16/24 00:[address]: Willam Barrera DEPT: IMMUNOHISTOCHEMISTRY RECD BY: Luis Eduardo Mccloud ENTERED: 06/16/24 14:37 SP TYPE: IMMUNO OT DR: LUDWIN HYATT, BLUEPRINTING AND PHOTOCOPY SUPERVISOR-C Tissues: A - Gastric mucous membrane Procedures: H Pylori (initial) KI-67 (add) P53 (add) PHYSICIAN & INSTITUTION [place] [id number] SPECIMEN INFORMATION: Tissue Source: A- Pyloric sphincter biopsy Clinical Info: GI bleed Specimen Number: [id number] CPT code: 84650,11946b6 METHODOLOGY: Deparaffinized sections of prefer/formalin-fixed tissue or PAP/DQ stained slides are incubated with monoclonal/polyclonal antibodies/oligonucleotide probes. Localization is made via biotin free immunoperoxidase method. Appropriate controls are performed and reacted as expected. Results on target cell population are indicated in the following table: RESULTS: ANTIBODY / CLONE RESULT Block A H Pylori (polyclonal) negative P53 (DO-7) positive, wild type Ki-67 (30-9) positive, low These tests were developed and their performance characteristics determined by [facility]. They may not have been cleared or approved by the U.S. Food and Drug Administration. The FDA has determined that such clearance or approval is not necessary. The above immunohistochemical/dualISH markers are ordered and reviewed by the Pathologist. INTERPRETATION: A. Pyloric sphincter, biopsy: Negative for Helicobacter pylori organisms. No evidence of dysplasia. AM. 06/18/2024
--- NOTE | 2024-06-16 10:34 | HP.PCM_ITS ---
History and Physical Date of Admission: 06/16/24 [facility] Complaint: Rectal Bleeding Details: MARIAELENA STEPHENSON, is a 64 F who presents to the office today for follow-up on constipation and new complaints of blood during BM. Pt reports urgency for BM that started yesterday morning, barely making it; describes seeing large blood clots and very little stool in toilet. States that the hematochezia continued throughout day with lessening urgency but increasing cramping and pressure to right upper and lower side of abdomen. States that applying manual pressure to right side relieved some of the pain, no rebound tenderness, no bleeding or bruising around abdomen. States she passes gas and will leak blood from her rectum. She reports being an easy bruiser due to clopidogrel and aspirin daily for CAD s/p PCI, HLD, HTN, AV valve disease. She denies nausea, difficulty swallowing, heartburn, constipation, fever, chills. 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 Reports daily BM with complete evacuation prior to this bleeding episode by increasing fiber and fluid intake. ROS Const Constitutional: Positive for fatigue and decreased energy; No fever(s), weight change or abnormal sleep pattern Eyes Eyes: No change in vision ENT ENT: No abnormal hearing or difficulty swallowing Resp Respiratory: No cough Gastro GI: Positive for abdominal pain, bloating, change in bowel habits, excessive flatus, incontinent of stools and Blood in stool; No belching, change in stool character, coffee ground emesis, constipation, cramping, diarrhea, heartburn, difficulty swallowing, feeling full early, Vomiting blood/hematemesis, loose stools, Black,tarry stools, nausea/dyspepsia, pain with swallowing, vomiting or other Genitourinary-Female: No difficulty urinating Musc Musculoskeletal: Positive for restless legs; No joint pain Skin Skin: No yellowing of the eye or itchy eyes Neuro Neurology: Positive for restless legs; No abnormal hearing Psych Psychiatric: No abnormal sleep pattern, Positive for anxiety and No depression Endo Endocrine: Positive for fatigue; No change in body appearance, cold intolerance, heat intolerance or weight change Aller/Imm Allergy/Immunologic: No food intolerance or itchy eyes Mikey/Lymp Hematologic/Lymphatic: Positive for easy bleeding and easy bruising Exam Const General: cooperative and acute distress mild Nutritional Appearance: well nourished Orientation: alert [facility] Head: normal to inspection Ears: hearing grossly normal bilaterally Nose: external nose normal Face and sinus: normal facial exam and face symmetric Eyes General: appearance normal, both eyes and all related structures Neck Neck: normal visual inspection and full ROM Neck mass: No Chest Chest palpation & inspection: normal inspection of the chest Resp Effort & Inspection: normal respiratory effort, able to speak in complete sentences and symmetric chest movement GI Inspection: normal to inspection Auscultation: hyperactive bowel sounds Palpation: soft, no hepatosplenomegaly and other Other: Negative psoas and obturator signs, no rebound tenderness. Skin General: no rashes or lesions noted and ecchymosis (scattered small areas) Neuro General: patient alert, patient awake and patient oriented x3 Extrem General: normal to inspection and full ROM Psych Appearance: grossly normal and well kempt Mental Status: mental status grossly normal Mood: congruent mood Affect: normal affect Speech and Movement: speech and movement normal Attitude: cooperative Thought Process: normal Judgment: judgment good Assessment and Plan Assessment and Plan (1) GI bleed: Status: Acute Qualifiers: GI bleed type/associated pathology: unspecified gastrointestinal hemo rrhage type Qualified Code(s): K92.2 - Gastrointestinal hemorrhage, unspecified Plan: MARIAELENA STEPHENSON, is a 64 F who presents to the office today for follow-up on constipation and new complaints of blood during BM. Pt reports urgency for BM that started yesterday morning, barely making it; describes seeing large blood clots and very little stool in toilet. States that the hematochezia continued throughout day with lessening urgency but increasing cramping and pressure to right upper and lower side of abdomen. States that applying manual pressure to right side relieved some of the pain, no rebound tenderness, no bleeding or bruising around abdomen. Differential diagnoses include: peptic ulcer disease, gastritis, duodenitis, varices, AVM. * CBC/d and CMP ordered stat, remaining lab studies routine * ordered CTa Abd/pelvis w/wo contrast stat to assess GIB, discussed w/radiology dept and they can see her today; called central scheduling * order EGD/colonoscopy, timing of scheduling dependent on testing results * no food intake, only water until testing cleared, pt understands * pt educated on timing of taking pantoprazole, reportedly using as needed only; recommend taking every morning and add famotidine as needed. * call with results Orders: Orders CBC W/Diff, Automated Today K92.2 - Gastrointestinal hemorrhage, unspecified LISSET + Protein Elect, Serum Today K92.2 - Gastrointestinal hemorrhage, unspecified LDH Today K92.2 - Gastrointestinal hemorrhage, unspecified Retic Panel Count Today K92.2 - Gastrointestinal hemorrhage, unspecified Celiac Disease Profile Today K92.2 - Gastrointestinal hemorrhage, unspecified Iron Today K92.2 - Gastrointestinal hemorrhage, unspecified Iron Binding Capacity,Total Today K92.2 - Gastrointestinal hemorrhage, unspecified Ferritin Today K92.2 - Gastrointestinal hemorrhage, unspecified Haptoglobin Today K92.2 - Gastrointestinal hemorrhage, unspecified Comprehensive Metabolic Profil Today K92.2 - Gastrointestinal hemorrhage, unspecified CTA Abd/Pelvis W/WO Contrast Today K92.2 - Gastrointestinal hemorrhage, unspecified Coding Level of Care Code Established Pt Off vis,est,level 4 Patient Type Established History Expanded Problem Focused Exam Expanded Problem Focused Medical Decision Making High Complexity Diagnoses Gastrointestinal hemorrhage, unspecified gastrointestinal hemorrhage type K92.2 GI bleed type/associated pathology: unspecified gastrointestinal hemorrhage type I have examined the patient and the H&P has been reviewed. There are no clinical changes since date of exam.
--- NOTE | 2024-06-16 10:50 | PRE.ANES_ITS ---
ASA Classification* ASA Classification ASA Classification: 3 Assessment & Plan Anesthesia* Anesthesia Assessment Anesthesia Assessment: Discussed sedation and/or anesthesia options, risks, benefits, and alternatives with patient/parents/legal guardian/POA. Questions invited. The patient/parents/legal guardian/POA seems to understand and agrees to proceed with anesthesia plan. Reviewed the physical assessment, medical history, allergy history and patient home medications list prior to surgery/procedure/anesthetic and documented any changes. Performed airway and anesthesia risk assessments. Anesthesia Type Anesthesia Type: MAC Anesthesia Focused Assessment* Temperature: 97.1 F Pulse Rate: 50 Blood Pressure: 124/66 Respiratory Rate: 16 Pulse Ox: 97 Airway Assessment Mouth opens: >3 cm Mallampati Score: II Focused Labs Anesthesia Preop lab: CBC WBC 7.3 K/mm3 (4.4-11.0) 05/09/24 09:04 RBC 4.10 M/mm3 (4.2-5.4) L 05/09/24 09:04 Hgb 12.5 g/dL (12.0-15.0) 05/09/24 09:04 Hct 37.2 % (37-47) 05/09/24 09:04 Plt Count 213 K/mm3 (150-450) 05/09/24 09:04 CHEMISTRY Potassium 4.1 mmol/L (3.5-5.1) 05/09/24 09:04 Sodium 137 mmol/L (136-145) 05/09/24 09:04 Magnesium 2.0 mg/dL (1.6-2.6) 04/15/20 06:08 BUN 20 mg/dL (7-18) H 05/09/24 09:04 Creatinine 0.70 mg/dL (0.55-1.02) 05/09/24 09:04 Glucose 112 mg/dL (74-106) H 05/09/24 09:04 COAG PT 14.1 SECONDS (11.7-14.9) 12/05/22 06:10 Pre-Assessment Diagnosis/Proposed Procedure Planned Operative Procedure(s): COLONOSCOPY, EGD Anesthesia History 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 When Was Last Pacemaker Check QUESTION #4 FULL TEXT: You/Your Family Experience fever (hyperthermia) with Anesthesia Last Oral Intake Last Oral intake: Last Oral Intake NPO since 06:00 06/16/24 10:25 Meds taken in AM with sips of Yes 06/16/24 10:25 water? Meds patient instructed to AMLODIPINE, RAMIPRIL, 06/16/24 10:25 take am of surgery ATENOLOL PLAVIX AND ASA STOPPED 06/11 [ End ] PONV PONV - fashion buying internship: PONV - fashion buying internship Female Yes 06/12/24 12:50 HX of Motion Sickness No 06/12/24 12:50 HX of N/V After Surgery No 06/12/24 12:50 Non-Smoker Yes 06/12/24 12:50 Duration of Surgery greater No 06/12/24 12:50 than 60 minutes Number of Risk Factors 2 06/12/24 12:50 PONV Score Moderate Risk 06/12/24 12:50 Height & Weight Height & Weight: Anesthesia: Height & Weight Height 5 ft 7 in 06/16/24 10:25 Weight: 67 kg 06/16/24 10:25 Body Mass Index (BMI) 23.1 06/16/24 10:25 Respiratory Assessment Respiratory Assessment - fashion buying internship: Respiratory Tract Infection Hx - fashion buying internship Hx Respiratory Tract Infection No 06/12/24 12:50 STOP Sleep Apnea STOP Sleep Apnea - fashion buying internship: STOP Sleep Apnea - fashion buying internship Hx Hypertension Yes: CONTROLLED WITH MEDS 06/12/24 12:50 Hx Sleep Apnea No 06/12/24 12:50 CPAP No 12/05/22 18:00 BIPAP No 12/04/22 15:34 Do you snore loudly (louder No 06/12/24 12:50 than talking or can be heard Do you often feel tired/ No 06/12/24 12:50 fatigued/ sleepy during daytime? Has anyone observed you stop No 06/12/24 12:50 breathing during sleep? STOP Results Negative 06/12/24 12:50 QUESTION #5 FULL TEXT : Do you snore loudly (louder than talking or can be heard through closed doors)? 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 Specify any problems Hx of Preganancy in last 3 No 06/12/24 12:50 Months Nurse Filling Out Transfusion [email or web address] 06/12/24 12:50 & Questions: Date: 06/12/24 06/12/24 12:50 Time: 12:52 06/12/24 12:50 Patient unable to answer at this time (ie. confused, unrespo /Reproduction History /Reproductive History - fashion buying internship: /Reproductive Hx- fashion buying internship Hx Now Gestational Age (in weeks): EDC: Hx Hx Para Hx Section SAB PFSH Medical History Wears partial dentures Arthritis Easy bruising Restless legs History of echocardiogram History of stress test Cardiology follow-up encounter Edema GI bleed Nonrheumatic aortic (valve) stenosis History of left heart catheterization (LHC) (~04/14/20) Nonrheumatic mitral (valve) insufficiency Pure hypercholesterolemia Essential (primary) hypertension Atherosclerosis of [place] coronary artery of [place] heart without angina pectoris Home Medications ?Medication ?Instructions ?Recorded ?Last Taken ?Type aspirin 81 mg tablet,delayed 81 mg PO DAILY heart health 07/09/19 06/12/24 08:00 History release (Adult Low Dose Aspirin) amlodipine 5 mg tablet 5 mg PO DAILY #90 tabs 06/15/23 06/16/24 08:00 Rx atenolol 25 mg tablet 25 mg PO DAILY blood pressure #90 06/15/23 06/16/24 08:00 Rx tabs atorvastatin 80 mg tablet 80 mg PO QHS cholesterol #90 tabs 06/15/23 Unknown Rx clopidogrel 75 mg tablet 75 mg PO DAILY antiplatelet #90 06/15/23 06/12/24 Rx tabs ramipril 10 mg capsule 20 mg (2 x 10 mg) PO DAILY blood 06/15/23 06/16/24 08:00 Rx pressure #180 caps hydrochlorothiazide 25 mg tablet 25 mg PO DAILY #90 tabs 03/17/24 Unknown Rx Allergy/AdvReac Type Severity Reaction Status Date / Time codeine Allergy Intermediate nausea and Verified 06/12/24 12:47 vomiting Family History Father Myocardial infarction Mother Myocardial infarction Brother CAD (coronary artery disease) Hypertension Sister Hypertension Surgical History History of left hip replacement History of tonsillectomy History of hysterectomy History of shoulder surgery History of open reduction and internal fixation (ORIF) procedure History of coronary artery stent placement (~03/11/08) Social History household members: spouse Smoking Status: Current every day smoker tobacco type: cigarettes alcohol intake: current alcohol intake frequency: holidays/special occasions only substance use type: does not use caffeine: Yes Type: coffee Number of servings: 5 Review of Systems (Anesthesia) ROS Narrative System reviewed and no additional complaints, except as documented.
--- NOTE | 2024-06-16 11:15 | COLBX_PTH ---
PATIENT: MARIAELENA STEPHENSON LOC: EN U#:[id number] AGE/SX: 64/F ROOM: RE06/16/[address]: Dr. Willam Barrera DO : 1960 BED: DIS: 06/16/2024 SPEC #: [id number] RECD: 06/16/24 13:40 STATUS: HEATHER ANGELIC #: [id number] JAZZMINE: 06/16/24 11:[address]: Willam Barrera DEPT: SURGICAL PATHOLOGY RECD BY: Eddie Flores ENTERED: 06/16/24 14:05 SP TYPE: COLON BX OTHR DR: LUDWIN HYATT, FELT HAT POUNCING OPERATOR HAND-C Tissues: A - Gastric mucous membrane B - Gastric mucous membrane C - Esophagus, NOS Procedures: Special Stain Group I Surgery Specimen Level IV Alcian Blue/PAS (control) HEADER OPERATION: Colonoscopy, EGD with biopsies PRE-OP DIAGNOSIS: GI bleed TISSUE SUBMITTED: A- Pyloric sphincter biopsy, B- Gastric body biopsy, C- Distal esophagus biopsy MICROSCOPIC DIAGNOSIS A. Prepyloric sphincter, biopsy: Intestinal metaplasia and mild chronic inflammation. No evidence of dysplasia. See comment. B. Gastric body, biopsy: Mild chronic gastritis. C. Distal esophagus, biopsy: Gastric mucosa with mild chronic inflammation. No evidence of goblet cell metaplasia. See comment. 06/17/2024 COMMENT A. The results of immunohistochemistry for Helicobacter pylori will be reported separately ([id number]). C. Alcian blue/PAS stain with matched control is used in the evaluation of the specimen. MICROSCOPIC DESCRIPTION Slides are reviewed. GROSS DESCRIPTION A. Received in fixative is one container labeled with the patient's name and designated Pyloric sphincter biopsy. The specimen consists of two irregular fragments of light lang soft tissue that in aggregate measure 0.6 x 0.2 x 0.1 cm. The specimen is totally submitted in one cassette. B. Received in fixative is one container labeled with the patient's name and designated Gastric body biopsy. The specimen consists of multiple irregular fragments of light lang soft tissue that in aggregate measure 1.0 x 0.6 x 0.1 cm. The specimen is totally submitted in one cassette. C. Received in fixative is one container labeled with the patient's name and designated Distal esophagus biopsy. The specimen consists of one irregular fragment of light lang soft tissue that measures 0.6 x 0.2 x 0.1 cm. The specimen is totally submitted in one cassette. 06/16/2024 TC:3 CPT:45919v8,44241
--- NOTE | 2024-06-16 12:10 | OP.CCLET_ITS ---
06/16/2024 Tevin Rucker Re : Upper GI endoscopy procedure for Naheed Lynch Loida Hector This procedure was performed on Sunday, June 16, 2024. My impressions and recommendations are as follows: Impressions : - Non-severe reflux esophagitis with no bleeding. Biopsied. - Chronic gastritis. Biopsied. - No gross lesions in the first portion of the duodenum. Recommendations : - Discharge patient to home. - Resume previous diet. - Continue present medications. - Await pathology results. My findings are described in the full procedure note, which is enclosed. If I can be of further assistance, please feel free to contact me at . Sincerely, Willam Barrera, 06/16/2024 12:10:18 PM This report has been signed electronically.
--- NOTE | 2024-06-16 12:10 | OP.EGD_ITS ---
Patient Name: Naheed Lynch Procedure Date: 06/16/2024 11:35 AM Date of : 1960 Age: 64 Procedure: Upper GI endoscopy Indications: Epigastric abdominal pain, Iron deficiency anemia Providers: Willam Barrera DO Referring MD: Usha Hector Np-navi Medicines: Monitored Anesthesia Care Patient Profile: This is a 64 year old female. Refer to note in patient chart for documentation of history and physical. Patient has symptoms of chronic abdominal pain, chronic dyspepsia, chronic heartburn and chronic nausea. Complications: No immediate complications. Procedure: Pre-Anesthesia Assessment: - Prior to the procedure, a History and Physical was performed, and patient medications and allergies were reviewed. The patient is competent. The risks and benefits of the procedure and the sedation options and risks were discussed with the patient. All questions were answered and informed consent was obtained. Patient identification and proposed procedure were verified by the physician in the pre-procedure area. Mental Status Examination: alert and oriented. Airway Examination: normal oropharyngeal airway and neck mobility. Respiratory Examination: clear to auscultation. CV Examination: normal. Prophylactic Antibiotics: The patient does not require prophylactic antibiotics. Prior Anticoagulants: The patient has taken no anticoagulant or antiplatelet agents except for NSAID medication. ASA Grade Assessment: III - A patient with severe systemic disease. After reviewing the risks and benefits, the patient was deemed in satisfactory condition to undergo the procedure. The anesthesia plan was to use monitored anesthesia care (MAC). Immediately prior to administration of medications, the patient was re-assessed for adequacy to receive sedatives. The heart rate, respiratory rate, oxygen saturations, blood pressure, adequacy of pulmonary ventilation, and response to care were monitored throughout the procedure. The physical status of the patient was re-assessed after the procedure. After obtaining informed consent, the endoscope was passed under direct vision. Throughout the procedure, the patient's blood pressure, pulse, and oxygen saturations were monitored continuously. The Colonoscope was introduced through the mouth, and advanced to the second part of duodenum. The upper GI endoscopy was accomplished without difficulty. The patient tolerated the procedure well. Scope In: Scope Out: 11:49:51 AM Findings: Non-severe esophagitis with no bleeding was found 39 to 40 cm from the incisors. Biopsies were taken with a cold forceps for histology. Verification of patient identification for the specimen was done. Estimated blood loss was minimal. Patchy moderate inflammation characterized by erythema was found at the pylorus. Biopsies were taken with a cold forceps for histology. Verification of patient identification for the specimen was done. Biopsies were taken with a cold forceps for Helicobacter pylori testing. Verification of patient identification for the specimen was done. Estimated blood loss was minimal. No gross lesions were noted in the first portion of the duodenum. Impression: - Non-severe reflux esophagitis with no bleeding. Biopsied. - Chronic gastritis. Biopsied. - No gross lesions in the first portion of the duodenum. Recommendation: - Discharge patient to home. - Resume previous diet. - Continue present medications. - Await pathology results. Procedure Code(s): --- Professional --- 77133, Esophagogastroduodenoscopy, flexible, transoral; with biopsy, single or multiple CPT copyright 2021 [employer]. All rights reserved. The codes documented in this report are preliminary and upon medical records coder review may be revised to meet current compliance requirements. Willam Barrera DO 06/16/2024 12:10:18 PM This report has been signed electronically. Number of Addenda: 0 Note Initiated On: 06/16/2024 11:35 AM
--- NOTE | 2024-06-16 12:13 | PCM.POST.ANE ---
Anesthesia: Postop Eval I Current Vital Signs Temperature: 98.1 F Pulse Rate: 57 Blood Pressure: 92/62 Respiratory Rate: 16 Pulse Ox: 96 Oxygen Delivery Method: Room Air Assessment Airway patent: Yes Spontaneous unlabored respirations: Yes Mental status: Asleep nausea: No Vomiting: No Anesthesia Complication: No Fluid Hydration Crystalloid volume administer (ml): 40 Total IV fluid infused: 40 Progress Note Anesthesia document: Postop Eval 1 completed: Yes
--- NOTE | 2024-06-16 12:14 | OP.COLON_ITS ---
Patient Name: Naheed Lynch Procedure Date: 06/16/2024 11:50 AM Date of : 1960 Age: 64 Procedure: Colonoscopy Indications: Screening for colorectal malignant neoplasm Providers: Willam Barrera DO Referring MD: Tevin Rucker Medicines: Monitored Anesthesia Care Patient Profile: This is a 64 year old female. Refer to note in patient chart for documentation of history and physical. Patient has symptoms of chronic abdominal pain, chronic dyspepsia, chronic heartburn and chronic nausea. Last Colonoscopy: date unknown. Unable to locate last colonoscopy report. Complications: No immediate complications. Procedure: Pre-Anesthesia Assessment: - Prior to the procedure, a History and Physical was performed, and patient medications and allergies were reviewed. The patient is competent. The risks and benefits of the procedure and the sedation options and risks were discussed with the patient. All questions were answered and informed consent was obtained. Patient identification and proposed procedure were verified by the physician in the pre-procedure area. Mental Status Examination: alert and oriented. Airway Examination: normal oropharyngeal airway and neck mobility. Respiratory Examination: clear to auscultation. CV Examination: normal. Prophylactic Antibiotics: The patient does not require prophylactic antibiotics. Prior Anticoagulants: The patient has taken no anticoagulant or antiplatelet agents except for NSAID medication. ASA Grade Assessment: III - A patient with severe systemic disease. After reviewing the risks and benefits, the patient was deemed in satisfactory condition to undergo the procedure. The anesthesia plan was to use monitored anesthesia care (MAC). Immediately prior to administration of medications, the patient was re-assessed for adequacy to receive sedatives. The heart rate, respiratory rate, oxygen saturations, blood pressure, adequacy of pulmonary ventilation, and response to care were monitored throughout the procedure. The physical status of the patient was re-assessed after the procedure. After I obtained informed consent, the scope was passed under direct vision. Throughout the procedure, the patient's blood pressure, pulse, and oxygen saturations were monitored continuously. The Colonoscope was introduced through the anus and advanced to the cecum, identified by appendiceal orifice and ileocecal valve. The colonoscopy was performed without difficulty. The patient tolerated the procedure well. The quality of the bowel preparation was adequate. The ileocecal valve, appendiceal orifice, and rectum were photographed. Scope In: 11:51:24 AM Scope Withdrawal Time 0 hours 7 minutes 39 seconds Scope Out: 12:05:55 PM Total Procedure Duration Time 0 hours 14 minutes 31 seconds Findings: The digital rectal exam findings include decreased sphincter tone. Multiple small and large-mouthed diverticula were found in the entire colon. Impression: - Decreased sphincter tone found on digital rectal exam. - Diverticulosis in the entire examined colon. - No specimens collected. Recommendation: - Discharge patient to home. - Resume previous diet. - Continue present medications. - Repeat colonoscopy in 5 years for surveillance. Procedure Code(s): --- Professional --- G0121, Colorectal cancer screening; colonoscopy on individual not meeting criteria for high risk CPT copyright 2021 [employer]. All rights reserved. The codes documented in this report are preliminary and upon coatings inspector review may be revised to meet current compliance requirements. Willam Barrera DO 06/16/2024 12:13:50 PM This report has been signed electronically. Number of Addenda: 0 Note Initiated On: 06/16/2024 11:50 AM
--- NOTE | 2024-06-16 12:14 | OP.CCLET_ITS ---
06/16/2024 Tevin Rucker Re : Colonoscopy procedure for Naheed Lynch Alkar Tawny This procedure was performed on Sunday, June 16, 2024. My impressions and recommendations are as follows: Impressions : - Decreased sphincter tone found on digital rectal exam. - Diverticulosis in the entire examined colon. - No specimens collected. Recommendations : - Discharge patient to home. - Resume previous diet. - Continue present medications. - Repeat colonoscopy in 5 years for surveillance. My findings are described in the full procedure note, which is enclosed. If I can be of further assistance, please feel free to contact me at . Sincerely, Willam Barrera, 06/16/2024 12:13:50 PM This report has been signed electronically.
--- NOTE | 2024-06-16 16:46 | PCM.POSTANE2 ---
Anesthesia Postop Eval I Sum Postop Eval Completion status Anesthesia document: Postop Eval 1 completed: Yes Anesthesia Postop Eval I Summary Anesthesia Postop Eval I Summary: Anesthesia Postop Eval I: Assessment Summary Airway patent Yes 06/16/24 12:14 [email or web address] Spontaneous unlabored Yes 06/16/24 12:14 [email or web address] respirations Mental status Asleep 06/16/24 12:14 [email or web address] nausea No 06/16/24 12:14 [email or web address] Vomiting No 06/16/24 12:14 [email or web address] Anesthesia Postop Eval I: Fluid Summary Crystalloid volume administer 40 06/16/24 12:14 [email or web address] (ml) Colloids volume administered ( ml) Blood Product volume administered (ml) Total IV fluid infused 40 06/16/24 12:14 [email or web address] Anesthesia Postop Eval I: Summary Notes Anesthesia Complication No 06/16/24 12:14 [email or web address] Anesthesia Complication Comment: Post-operative progress note Anesthesia: Postop Eval II Evaluation Mental status: Awake and Calm Pain Level: 0 nausea: No Vomiting: No Complications Anesthesia Complication: No
== END 2024-06-16 12:45 | disposition home or self-care (01) ==
LOC: EN 10:01 → AC 10:04
PROVIDERS: PCP Nurse Practitioner; Referring Provider Nurse Practitioner; Visit Provider Internal Medicine Gastroenterology
PROC: 0DJD8ZZ Inspection of Lower Intestinal Tract, Via Natural or Artificial Opening Endoscopic (ICD-10-PCS; CPT 45378; principal; 2024-06-16 11:10)
DX: Z12.11 Encounter for screening for malignant neoplasm of colon (principal); K62.5 Hemorrhage of anus and rectum; K57.30 Diverticulosis of large intestine without perforation or abscess without bleeding; D50.9 Iron deficiency anemia, unspecified; K29.51 Unspecified chronic gastritis with bleeding; K20.90 Esophagitis, unspecified without bleeding
CPT/HCPCS: 45378; 43239; 88305; 88312; 88341; 88342; A4216; J2405

== ENCOUNTER → 2025-05-27 | Outpatient (CLI) | payer MEDICARE, OTHER, SELFPAY ==
--- NOTE | 2025-05-27 07:00 | MRI_ITS ---
PROCEDURE: LOWER EXT JOINT ONLY (ROUTINE) 05/27/2025 REASON FOR EXAM: SPRAIN, INSTABILITY Injury March 2025, and re-injury 05/16/2025. Pain posterior to the inferior patella.. TECHNIQUE: Procedure Code: MRILEJ Modality: MR Procedure: LOWER EXT JOINT ONLY (ROUTINE) Multiplanar and multisequence images were obtained without IV contrast administration. COMPARISON: COMPARISON : None provided. FINDINGS: Bone and bone marrow: Substantial bone marrow edema is seen of the posterior portions of the tibial plateau, extending medially. This is concerning for the presence of bone bruising. No additional area of abnormal osseous signal is seen. Effusion: No joint effusion is seen. No Ellis's or popliteal cyst is noted. No articular cartilage thinning or defect is seen. No meniscal tear is seen. A partial tear of the proximal portion of the lateral collateral ligament is seen, of uncertain chronicity; recommend clinical correlation. Cruciate and medial collateral ligaments appear intact. Visualized extensor tendons appear intact. MRI/Lower Ext Joint Only (Routine) IMPRESSION: 1. Partial tear of the lateral collateral ligament, of uncertain chronicity. 2. Substantial bone marrow edema at portions of the tibial plateau, most concer fito for bone bruising. No fracture line is identified at this time. Reading Location: [id number]
--- OUTSIDE RECORDS SUMMARY | 2025-05-27 07:08 | XMS RPT_ITS | CCD ---
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 Shira Bullard Primary Care Provider Dr. Shira Bullard Referring Provider Dr. Feliz Clancy Attending Provider Shira Bullard MD Primary Care Provider DR SHIRA BULLARD MD Primary Care Physician Dr. Shira Bullard Primary Care Provider Dr. Shira Bullard Referring Provider Roof VERTICAL CONTOUR BAND SAW OPERATOR, VERTICAL CONTOUR BAND SAW OPERATOR-C Jerry Hanson Attending Provider Roof VERTICAL CONTOUR BAND SAW OPERATOR, VERTICAL CONTOUR BAND SAW OPERATOR-C Jerry H Referring Provider Roof VERTICAL CONTOUR BAND SAW OPERATOR, VERTICAL CONTOUR BAND SAW OPERATOR-C Jerry H Other Provider Dr. Feliz Clancy Attending Provider SIDDHARTH CALVO Attending Christina BULLARD MD., DR. SHIRA Rain Primary Care SIDDHARTH Lombardo Attending Christina BULLARD MD., DR. SHIRA Rain Primary Care UnavailSIDDHARTH Clarke Attending Unavailable JUAN MIGUEL ALAMO, DR. SHIRA Rain Primary Care UnavailSIDDHARTH Clakre Attending Unavailable JUAN MIGUEL ALAMO, DR. SHIRA Rain Primary Care UnavailShira Gresham MD Primary Care Provider Dr. Shira Bullard Primary Care Provider Dr. Shira Bullard Referring Provider Roof VERTICAL CONTOUR BAND SAW OPERATOR, VERTICAL CONTOUR BAND SAW OPERATOR-C Jerry Hanson Attending Provider OLDER, VERTICAL CONTOUR BAND SAW OPERATOR-C USHA Primary Care Provider Dr. Hao Pantoja Attending Provider Shira Bullard MD Primary Care Provider Older [facility] RE[facility], Usha Lisa Primary Care Provider BELLE GRIDER Referring Unavailable OLDER, USHA LISA Primary Care Unavailable Older [facility] RE[facility], Usha Unavailable OLDER, USHA Primary Care Unavailable Fadia NORTH, Isabela Laureano Attending Unavail able Isabela Angel Referring Unavail able OLDER, USHA Attending Unavailable OLDER, USHA Referring Unavailable OLDER, UHSA Primary Care Unavailable Friend, Willam Attending Unavailable OLDER, USHA Referring Unavailable OLDER, USHA Primary Care Unavailable Dorman, Windy Referring Unavailable OLDER, USHA Primary Care Unavailable Dorman, Windy Attending Unavailable Dorman, Windy Referring Unavailable OLDER, USHA Primary Care Unavailable Dorman, Windy Attending Unavailable OLDER, USHA Primary Care Unavailable Dorman, Windy Attending Unavailable OLDER, USHA Referring Unavailable OLDER, USHA Referring Unavailable OLDER, USHA Primary Care Unavailable Friend, Willam Consulting Unavailable Friend, Willam Attending Unavailable OLDER, USHA Primary Care Unavailable Roof VERTICAL CONTOUR BAND SAW OPERATOR, Jerry Hanson Attending Unavailable Ganta, Shira Referring Unavailable HARPSTER, TINY Referring Unavailable GANTA, SHIRA Primary Care Unavailable OLDER, USHA Attending Unavailable GANTA, SHIRA Primary Care Unavailable GANTA, SHIRA Referring Unavailable GANTA, SHIRA Primary Care Unavailable OLDER, USHA Attending Unavailable GANTA, SHIRA Primary Care Unavailable GANTA, SHIRA Referring Unavailable GANTA, SHIRA Primary Care Unavailable HARPSTER, TINY Attending Unavailable OLDER, USHA Referring Unavailable GANTA, SHIRA Primary Care Unavailable OLDER, USHA Referring Unavailable GANTA, SHIRA Primary Care Unavailable Allergies Allergy Classification Reported Allergen(s) Allergy Type Date of Onset Reaction(s) Facility (20 sources) codeine; Translations: [codeine] Drug Allergy 5 GI Upset [facility] Work Phone: (20 sources) Acetaminophen / traMADol; Translations: [TRAMADOL-ACETAMI NOPHEN] Drug Allergy 6 GI Upset [facility] Work Phone: (1 source) ALLERGIES NOT ON FILE; Translations: [ALLERGIES NOT ON FILE] Propensity to adverse reactions (disorder) [facility] 2 Repository Medications Current Medications Medication Drug Class(es) Dates Sig (Normalized) Sig (Original) amoxicillin 875 mg / clavulanate 125 mg oral tablet (8 sources) Penicillin-class Antibacterial Start: 01-08-2023 End: 01-18-2023 take 1 tablet by mouth twice daily amoxicillin-clav ulanic acid (AUGMENTIN) 875-125 mg per tablet Take 1 tablet by mouth twice daily for 10 days. 20 tablet 0 01/08/2023 01/18/2023 Active Start: 08-12-2019 End: 11-04-2019 Amoxicillin-Pot Clavulanate Discontinued 1 EACH PO TWICE A DAY August 12, 2019 12:00am November 04, 2019 9:35am Take twice a day while nasal packing is in place Comment on above: Take 1 tablet by mouth twice daily for 1 0 days. aspirin 81 mg oral tablet (20 sources) Nonsteroidal Anti-inflammatory Drug Start: take 1 tablet by mouth twice daily at mealtime aspirin Dose : 81 mg = 1 tab(s), Oral, Daily, Take 81 mg aspirin twice daily with food for 4 weeks postoperatively for DVT prophylaxis, 0 Refill(s) Start Date: 05/25/21 Status: Ordered Start: 02-06-2010 aspirin(ADULT LOW DOSE ASPIRIN 81 MG TAB, DELAYED RELEASE) Take one(1) tablet daily. 0 02/06/2010 Active Comment on above: Take one(1) tablet d aily. atenolol 25 mg oral tablet (20 sources) beta-Adrenergic Zeina Start: 10-08-19 End: 06-15-20 take 25 mg by mouth once daily Atenolol Active 25 MG PO DAILY June 15, 2023 3:32pm Comment on above: Take one(1) tablet d aily. atorvastatin 80 mg oral tablet (20 sources) HMG-CoA Reductase Inhibitor Start: 02-07-20 End: 06-15-20 23 take 1 tablet by mouth once daily atorvastatin (LIPITOR) 80 mg tablet Take 80 mg by mouth once daily. 10/16/2017 Active Comment on above: Take one(1) tablet d aily. Take 80 mg by mouth once daily. cholecalciferol 0.025 mg oral capsule (20 sources) Vitamin D Start: 01-09-20 take 1 capsule by mouth once daily Cholecalciferol, Vitamin D3, 25 mcg (1,000 unit) cap Take 1 capsule by mouth once daily. 90 capsule 1 01/08/2023 Active Comment on above: Take 1 capsule by mo [facility] once daily. clopidogrel 75 mg oral tablet (20 sources) P2Y12 Platelet Inhibitor Start: 02-07-20 End: 06-15-20 take 1 tablet by mouth once daily clopidogrel (PLAVIX) 75 mg tablet Take 75 mg by mouth once daily. 01/08/2016 Active Comment on above: Take one(1) tablet d aily. Take 75 mg by mouth once daily. escitalopram 20 mg oral tablet (20 sources) Serotonin Reuptake Inhibitor Start: 07-11-20 End: 06-11-20 take 1 tablet by mouth once daily escitalopram oxalate (LEXAPRO) 20 mg tablet Indications: Anxiety and depression Take 1 tablet by mouth once daily. Appointment needed for further refills. 90 tablet 3 06/11/2024 Active Start: 11-13-2019 End: 07-11-2023 take 10 mg by mouth once daily Escitalopram Oxalate Di scontinued 10 MG PO DAILY April 13, 2020 4:32pm November 21, 2021 2:32pm Start: 06-06-2017 take 1 tablet by brett once daily LEXAPRO 10 MG TABS One tablet by mouth daily ESCITALOPRAM OXALATE [id number] Jerry Pizarro VERTICAL CONTOUR BAND SAW OPERATOR Comment on above: Take 1 tablet by brett th once daily. Appointment needed for further refills. Take 1 tablet by brett once daily. FeroSul 325 mg (65 mg elemental iron) oral tablet (1 source) Start : 05-24 FeroSul 325 mg (65 mg elemental iron) oral tablet Dose : 650 mg = 2 tab(s), qDay, 0 Refill(s) Start Date: 05/24/21 Status: Ordered ferrous gluconate 240 mg oral tablet (3 sources) Start : 03-12 End: 12-11 take 1 tablet by mouth three times daily at mealtime Ferrous Gluconate 240 mg (27 mg iron) tablet Take 1 tablet by mouth three times daily with meals. 90 tablet 2 03/12/2019 12/11/2022 Discontinued (Discontinued by Patient) Comment on above: Take 1 tablet by brett three times daily with meals. fluticasone propionate 0.05 mg/actuat metered dose nasal spray (5 sources) Corticosteroid Start : 07-26 End: 12-11 take 2 spray(s) by mouth once daily fluticasone (FLONASE) 50 mcg/actuation nasal spray Indications: Sinobronchitis Use 2 Sprays in each nostril once daily. Rinse mouth after use. 1 Bottle 0 07/26/2018 12/11/2022 Discontinued (Discontinued by Patient) Comment on above: Use 2 Sprays in each nostril once daily. Rinse mouth after use. folic acid 1 mg oral tablet (5 sources) Start : 05-23 End: 12-11 take 1 tablet by mouth once daily folic acid 1 mg tablet Take 1 tablet by mouth once daily. 0 05/23/2021 12/11/2022 Discontinued (Discontinued by Patient) Comment on above: Take 1 tablet by brett once daily. hydroCHLOROthiazide 25 mg oral tablet (5 sources) Thiazide Diuretic Start : 03-17 take 1 tablet by mouth once hydroCHLOROthiazide 25 mg tablet Take 1 tablet by mouth every afternoon. 03/17/2024 Active hydrOXYzine hydrochloride 25 mg oral tablet (20 sources) Antihistamine Start : 07-11 End: 01-06 take 1 tablet by mouth every eight hours as needed hydrOXYzine HCl (ATARAX) 25 mg tablet take 1 tablet by mouth three times a day as needed for anxiety 270 tablet 1 01/07/2024 Active Comment on above: Take 1 tablet by brett three times a day as needed for anxiety. TAKE 1 TABLET BY BRETT THREE TIMES A DAY NEEDED FOR ANXIETY Magnesium (12 sources) MAGNESIUM ORAL T jose r by mouth. Active MAGNESIUM ORAL T jose r by mouth. 0 Active pantoprazole 40 mg delayed release oral tablet (11 sources) Proton Pump Inhibitor Start: 12-06-2022 take 1 tablet by mouth twice daily Pantoprazole (Protonix) 40 mg tablet,delayed release (DR/EC) Active 40 MG PO TWICE A DAY 60 December 05, 2022 11:00pm Start: 01-19-2021 End: 11-21-2021 take 1 tablet by mouth once daily Pantoprazole (Protonix) 40 mg tablet,delayed release (DR/EC) Discontinued 40 MG PO DAILY January 18, 2021 11:00pm November 21, 2021 2:32pm Start: 04-13-2020 End: 07-07-2020 take 40 mg by mouth once daily Pantoprazole Discontinu ed 40 MG PO DAILY April 12, 2020 11:00pm July 07, 2020 3:52pm ramipril 10 mg oral capsule (20 sources) Angiotensin Converting Enzyme Inhibitor Start: 07-11-2023 take 2 capsules by mouth once daily ramipril (ALTACE) 10 mg capsule Take 2 capsules by mouth once daily. 07/11/2023 Active Start: 12-15-2021 End: 06-15-2023 take 20 mg by mouth once daily Ramipril Active 20 MG P O DAILY 180 June 15, 2023 3:32pm Start: 07-09-2019 End: 11-16-2021 take 20 mg by mouth once daily Ramipril Discontinued 2 0 MG PO DAILY 180 November 15, 2021 3:13pm November 16, 2021 10:12am Start: 03-12-2018 End: 06-10-2018 take 5 mg by mouth once daily Ramipril Discontinued 5 MG PO daily March 12, 2018 3:38pm June 10, 2018 3:06pm Start: 10-16-2017 End: 07-11-2023 take 10 mg by mouth once daily Ramipril Discontinued 1 0 MG PO DAILY November 16, 2021 10:12am December 15, 2021 7:30am Start: 01-08-2016 End: 03-12-2018 take 10 mg by mouth once daily Ramipril Discontinued 1 0 MG PO DAILY January 07, 2016 11:00pm March 12, 2018 3:36pm Start: 01-04-2011 take 2 tablets by mo uth once daily ALTACE 2.5 MG CAPS Take two tablets by mouth daily RAMIPRIL [id number] Jerry Pizarro NP Start: 01-04-2011 take 1 tablet by brett once daily ALTACE 2.5 MG CAPS One tablet by mouth daily RAMIPRIL [id number] Feliz Clancy MD Comment on above: Take 1 capsule by mo [facility] once daily. ramipril Take 2 capsules by m out once daily. traZODone hydrochloride 50 mg oral tablet (5 sources) Serotonin Reuptake Inhibitor Start: 8 End: 3 take 1 tablet by mouth once daily at bedtime traZODone (DESYREL) 50 mg tablet Indications: Insomnia, unspecified type Take 1 tablet by mouth daily at bedtime. 90 tablet 1 12/05/2017 12/11/2022 Discontinued (Discontinued by Patient) Comment on above: [facility] Vitamin D3 (2 sources) Start: 1 Vitamin D3 Dose : 1,000 unit(s) = 1 tab(s), Oral, Daily, 0 Refill(s) Start Date: 05/13/21 Status: Ordered Completed/Discontinued Medications Medication Drug Class(es) Dates Sig (Normalized) Sig (Original) acetaminophen 325 mg oral tablet (5 sources) Start: 11-04-2019 End: 11-13-2019 take 650 mg by mouth four times daily as needed Acetaminophen Discontinued 650 MG PO 4 TIMES DAILY NEEDED November 04, 2019 9:36am November 13, 2019 2:45pm acetaminophen 325 mg / HYDROcodone bitartrate 5 mg oral tablet (10 sources) Opioid Agonist Start: 11-04-2019 End: 11-13-2019 take 1 tablet by mouth every six hours as needed Hydrocodone-Acetami nophen Discontinued 1 - 2 TABLET PO EVERY 6 HOURS NEEDED 30 7 November 13, 2019 November 13, 2019 2:46pm Start: 08-12-2019 End: 08-20-2019 take 1 tablet by mouth every eight hours as needed Hydrocodone-Acetaminophen Discontinued 1 TABLET PO EVERY 8 HOURS NEEDED 12 August 12, 2019 August 20, 2019 12:11am [id number] actuat albuterol 0.09 mg/actuat metered dose inhaler (20 sources) beta2-Adrenergic Agonist Start: 01-08-2023 End: 06-11-2024 take 2 puff(s) by inhalation every four hours as needed for wheezing albuterol HFA (PROVENTIL HFA, VENTOLIN HFA) 90 mcg/actuation inhaler INHALE 2 PUFFS INSTRUCTED EVERY 4 HOURS NEEDED FOR WHEEZING/SHORTNESS OF BREATH. 18 Each 1 06/15/2023 06/11/2024 Discontinued Comment on above: Inhale 2 Puffs as instructed every 4 miquel rs as needed for wheezing/shortness of breath. amLODIPine 10 mg oral tablet (20 sources) Dihydropyridine Calcium Channel Zeina Start: 09-04-2023 End: 06-11-2024 take 1 tablet by mouth once daily amLODIPine (NORVASC) 10 mg tablet Take 1 tablet by mouth once daily. 90 tablet 3 12/27/2023 06/11/2024 Discontinued Start: 05-04-2022 End: 06-15-2023 take 5 mg by mouth once daily Amlodipine Active 5 MG P O DAILY June 15, 2023 3:32pm Start: 04-28-2022 amLODIPine 2.5 mg oral tablet Dose : 5 mg = 2 tab(s), Oral, qDay, # 30 tab(s), 0 Refill(s) Start Date: 04/28/22 Status: Ordered Start: 04-26-2022 End: 05-04-2022 take 5 mg by mouth once daily Amlodipine Discontinued 5 MG PO DAILY April 26, 2022 12:34pm May 04, 2022 1:33pm Start: 04-20-2022 End: 04-26-2022 take 2.5 mg by mouth once daily Amlodipine Discontinue d 2.5 MG PO DAILY April 19, 2022 11:00pm April 26, 2022 12:34pm Start: 04-15-2020 End: 08-10-2023 take 1 tablet by mouth once daily amLODIPine (NORVASC) 10 mg tablet Take 1 tablet by mouth once daily. 30 tablet 1 08/10/2023 Active Comment on above: Take 10 mg by mouth once daily. Take 1 tablet by brett th once daily. TAKE 1 TABLET BY BRETT TH EVERY DAY Aspirin, Baby (5 sources) Start: 01-08-2016 End: 07-09-2019 take 81 mg by mouth once daily Aspirin, Baby Discontinued 81 MG PO DAILY January 08, 2016 1:14pm July 09, 2019 4:56pm Start: 01-08-2016 End: 07-09-2019 take 81 mg by mouth once daily Aspirin, Baby Discontin ued 81 MG PO DAILY January 07, 2016 11:00pm July 09, 2019 3:56pm Start: 01-08-2016 End: 07-09-2019 take 81 mg by mouth once daily Aspirin, Baby Discontin ued 81 MG PO DAILY January 08, 2016 12:00am July 09, 2019 4:56pm meloxicam 7.5 mg oral tablet (10 sources) Nonsteroidal Anti-inflammatory Drug Start: 01-04-2011 End: 11-27-2011 MOBIC 7.5 MG TABS As needed MELOXICAM [id number] Jin Chaves MD niacin 500 mg oral tablet (20 sources) Nicotinic Acid Start: 04-13-2020 End: 11-21-2021 take 500 mg by mouth once daily Niacin Discontinued 500 MG PO DAILY August 12, 2020 8:22am November 21, 2021 2:32pm On Hold: myalgia 01/19/2021 Start: 01-04-2011 take 1 tablet by brett at bedtime NIASPAN 500 MG CR-TABS One tablet by mouth at bedtime with ASA & fat free snack NIACIN (ANTIHYPERLIPIDEMIC) [id number] Feliz Clancy MD Start: 02-06-2010 End: 12-11-2022 take 500 mg by mouth once daily Niacin Discontinued 500 MG PO DAILY June 13, 2019 3:38pm November 04, 2019 9:35am Comment on above: Take one(1) tablet d aily at bedtime. nitroglycerin 0.4 mg sublingual tablet (10 sources) Nitrate Vasodilator Start: 01-05-20 NITROSTAT 0.4 MG SUBL 1 tablet under tongue every 5 min up to 3 X NITROGLYCERIN [id number] Feliz Clancy MD oxyCODONE hydrochloride 5 mg oral tablet (5 sources) Opioid Agonist Start: 11-13-19 End: 11-20-19 take 5 mg by mouth every four hours as needed Oxycodone Discontinued 5 MG PO EVERY 4 HOURS NEEDED 42 7 November 13, 2019 November 19, 2019 11:08pm traMADol hydrochloride 50 mg oral tablet (5 sources) Opioid Agonist Start: 11-13-19 End: 03-19-20 20 take 50 mg by mouth every six hours as needed Tramadol Discontinued 50 MG PO EVERY 6 HOURS NEEDED 42 7 November 12, 2019 11:00pm November 19, 2019 11:08pm Problems Active Problems Problem Classification Problem Date Documented Da te Episodic/Chronic Anxiety disorders (15 sources) Anxiety; Translations: [Anxiety disorder, unspecified] Onset: 4 10-25-2019 Chronic Chronic obstructive pulmonary disease and bronchiectasis (5 sources) Chronic obstructive lung disease; Translations: [Chronic obstructive pulmonary disease, unspecified] 04-13-2020 Chronic Coronary atherosclerosis and other heart disease (20 sources) Coronary arteriosclerosis; Translations: [Atherosclerotic heart disease of [place] coronary artery without angina pectoris] Onset: 1 Resolved: 7 06-05-2017 Chronic Deficiency and other anemia (5 sources) Iron deficiency anemia; Translations: [Iron deficiency anemia, unspecified] 04-13-2020 Episodic Deficiency and other anemia (2 sources) Anemia; Translations: [Anemia, unspecified] Episodic Diabetes mellitus without complication (2 sources) Increased glucose level; Translations: [Other abnormal glucose] Episodic Disorders of lipid metabolism (20 sources) Hyperlipidemia; Translations: [Pure hypercholesterolemia] Onset: 1 01-04-2011 Chronic Essential hypertension (20 sources) Hypertensive disorder; Translations: [Essential hypertension] Onset: 1 01-04-2011 Chronic Fluid and electrolyte disorders (1 source) Hypokalemia; Translations: [Hypokalemia] Episodic Fracture of neck of femur (hip) (5 sources) Closed fracture of hip; Translations: [Fracture of unspecified part of neck of left femur, initial encounter for closed fracture] 04-13-2020 Episodic Gastrointestinal hemorrhage (1 source) Gastrointestinal hemorrhage; Translations: [Chronic or unspecified duodenal ulcer with hemorrhage] Chronic Heart valve disorders (15 sources) Aortic stenosis, non-rheumatic ; Translations: [Nonrheumatic aortic (valve) stenosis] 12-01-2021 Chronic Inflammation; infection of eye (except that caused by tuberculosis or sexually transmitteddisease) (20 sources) Optic neuritis; Translations: [Unspecified optic neuritis] Onset: 3 10-08-2012 Chronic Nonspecific chest pain (20 sources) Precordial pain; Translations: [Chest pain, unspecified] Onset: 1 Resolved: 7 01-04-2011 Episodic Nutritional deficiencies (3 sources) Vitamin D deficiency; Translations: [Vitamin D deficiency, unspecified] Chronic Other aftercare (1 source) Other correction (current) drug therapy; Translations: [Medication management] Onset: 5 Episodic Other bone disease and musculoskeletal deformities (2 sources) Segmental and somatic dysfunction; Translations: [Segmental and somatic dysfunction of cervical region] Onset: 4 06-30-2024 Episodic Other bone disease and musculoskeletal deformities (1 source) Segmental and somatic dysfunction of cervical region; Translations: [Segmental and somatic dysfunction of cervical region] Onset: 4 Episodic Other lower respiratory disease (1 source) Cough; Translations: [Acute cough] Episodic Other lower respiratory disease (2 sources) Wheezing; Translations: [Wheezing] Episodic Other lower respiratory disease (1 source) Cough; Translations: [Acute cough] 01-08-2023 Episodic Other non-traumatic joint disorders (1 source) Swollen ankle region; Translations: [Effusion, unspecified ankle] 01-07-2024 Episodic Other screening for suspected conditions (not mental disorders or infectious disease) (17 sources) Patient encounter status; Translations: [Encounter for screening mammogram for malignant neoplasm of breast] Onset: 4 Episodic Other upper respiratory disease (5 sources) Bleeding from nose; Translations: [Epistaxis] 08-13-2019 Episodic Naty-; endo-; and myocarditis; cardiomyopathy (except that caused by tuberculosis or sexually transmitted disease) (9 sources) Heart valve disorder; Translations: [Endocarditis, valve unspecified] Chronic Residual codes; unclassified (8 sources) Tobacco user; Translations: [Tobacco use] 04-13-2020 Episodic Residual codes; unclassified (5 sources) Finding of systemic arterial pressure; Translations: [Other general symptoms and signs] 01-19-2021 Episodic Residual codes; unclassified (1 source) History of clinical finding in subject; Translations: [Personal history of other medical treatment] Episodic Residual codes; unclassified (2 sources) Insomnia; Translations: [Insomnia, unspecified] 07-11-2023 Episodic Residual codes; unclassified (2 sources) Menopause present; Translations: [Asymptomatic menopausal state] 12-10-2023 Episodic Spondylosis; intervertebral disc disorders; other back problems (3 sources) Cervical spondylosis without myelopathy; Translations: [Spondylosis without myelopathy or radiculopathy, cervical region] Onset: 4 06-30-2024 Chronic Substance-related disorders (20 sources) Tobacco dependence syndrome; Translations: [Nicotine dependence] Onset: 8 01-04-2011 Chronic Superficial injury; contusion (5 sources) Hematoma of lower limb; Translations: [Contusion of left lower leg, initial encounter] 04-13-2020 Episodic Unclassified (3 sources) Placement of stent in coronary artery ; Translations: [Presence of cardiac and vascular implant and graft, unspecified] Onset: 7 06-05-2017 Unclassified (10 sources) Long-term drug therapy; Translations: [Other correction (current) drug therapy] Onset: 1 06-05-2017 Past or Other Problems Problem Classification Problem Date Documented Da te Episodic/Chronic Cardiac dysrhythmias (1 source) Bradycardia, unspecified; Translations: [Bradycardia, unspecified] Onset: 4 Episodic Coronary atherosclerosis and other heart disease (14 sources) Coronary angioplasty status; Translations: [Presence of coronary angioplasty implant and graft] Onset: 8 Resolved: 7 01-04-2011 Episodic Gastrointestinal hemorrhage (5 sources) Acute gastrointestinal hemorrhage; Translations: [Gastrointestinal hemorrhage, unspecified] Onset: 4 12-04-2022 Episodic Heart valve disorders (5 sources) Heart murmur; Translations: [Cardiac murmur, unspecified] Onset: 3 04-14-2013 Episodic Other aftercare (20 sources) Surgical follow-up; Translations: [Encounter for follow-up examination after completed treatment for conditions other than malignant neoplasm] Onset: 6 06-11-2006 Episodic Other bone disease and musculoskeletal deformities (20 sources) Osteopenia; Translations: [Other specified disorders of bone density and structure, unspecified site] Onset: 2 02-15-2012 Episodic Other connective tissue disease (20 sources) Bicipital tenosynovitis; Translations: [Bicipital tendinitis, unspecified shoulder] Onset: 6 05-16-2006 Episodic Other connective tissue disease (15 sources) Lateral epicondylitis; Translations: [Lateral epicondylitis, unspecified elbow] Onset: 5 Resolved: 6 05-16-2006 Episodic Other non-traumatic joint disorders (20 sources) Soft tissue lesion of shoulder region; Translations: [Other specified joint disorders, unspecified shoulder] Onset: 5 08-14-2005 Episodic Residual codes; unclassified (2 sources) Family history of ischemic heart disease and other diseases of the circulatory system; Translations: [Family history of ischemic heart disease and other diseases of the circulatory system] 05-11-2014 Episodic Residual codes; unclassified (1 source) Edema, unspecified; Translations: [Edema, unspecified] Onset: 4 Episodic Residual codes; unclassified (1 source) Tobacco use; Translations: [Tobacco use current] Onset: 4 Episodic Residual codes; unclassified (1 source) Asymptomatic menopausal state; Translations: [Asymptomatic menopause] Onset: 4 Episodic Sprains and strains (20 sources) Injury of superior glenoid labrum of shoulder joint; Translations: [Superior glenoid labrum lesion of unspecified shoulder, initial encounter] Onset: 6 05-16-2006 Episodic Unclassified (8 sources) Family history of ischemic heart disease; Translations: [Family history of ischemic heart disease and other diseases of the circulatory system] Onset: 1 01-04-2011 Episodic Results Test Name Value Interpretation Reference Range Facility [facility] SCREENING W TOMOon 12-19 [facility] SCREENING W MIHIR * * *Final Report* * * DATE OF EXAM: Dec 19 2024 9:30AM [facility] 0582 - [facility] SCREENING W MIHIR / PROCEDURE REASON: Encounter for screening mammogram for breast cancer * * * * Physician Interpretation * * * * RESULT: [address] [address] [place] [address] #[id number] - [facility] SCREENING W MIHIR HISTORY: 64 year-old patient seen for screening. Patient is asymptomatic in both breasts. Patient states no personal history of breast cancer. COMPARISON STUDIES: The present examination has been compared to prior imaging studies dated 06/13/2018 (mammogram), 02/06/2022 (mammogram) and 03/22/2023 (mammogram). MAMMOGRAM TECHNIQUE: The study was acquired using full field digital technology and interpreted from soft copy. Digital Breast Tomosynthesis (DBT) images were obtained and used to assist in the interpretation of this examination. MAMMOGRAM FINDINGS: There are scattered areas of fibroglandular density. No suspicious masses, calcifications or other abnormalities are seen in either breast. There are no significant interval changes. IMPRESSION: There is no mammographic evidence of malignancy in either breast. Routine screening mammogram is recommended. Annual mammogram will be due in 1 year. BI-RADS Category 1: Negative RISK: Based on the Tyrer-Cuzick (TC) risk assessment model, this patient has a 3.7% lifetime risk of developing breast cancer, meaning they are at average risk for developing breast cancer. However, this is only an estimate based on available history provided on the patient's questionnaire. We encourage all patients to talk with their providers about these results, further recommendations for managing breast health, and appropriate supplemental screening options if the patient has dense breast tissue. Interpreting Radiologist: Alexandru Augustin M.D. Electronically signed on: 12/22/2024 Information Systems Security Officer: MARTINA Transcribe Date/Time: Dec 19 2024 9:18A Dictated by: ALEXANDRU AUGUSTIN MD This examination was interpreted and the report reviewed and electronically signed by: ALEXANDRU AUGUSTIN MD on Dec 22 2024 12:41PM EST [id number] Normal [facility] CNOVon 12-10-2024 CNOV Office Visit (INTMWS ) NAHEED LYNCH ([id number]) 1960 F Date Time Provider Department 12/10/24 10:20 AM USHA GOMES INTMWS During your visit today, we recorded the following information about you: Pulse Blood pressure Weight Height 96/minute 122/80 69.4 kg 1.73 m Older, UshaAPRN[facility] REP 12/10/2024 12:59 PM Signed Naheed Lynch is a 64 year old female here for a Medicare wellness visit. Medicare Health Risk Assessment General Health Good Exercise: Minutes/Day Currently not exercising Exercise: Days/Week Currently not exercising Alcohol: Daily Use Does not drink alcohol Alcohol: Drinks/Day Does not drink alcohol Alcohol: 6 or more drinks Does not drink alcohol Feel off balance Not with balance but clumsy after breaking left hip previously Concerns: Teeth/Dentures Denies Concerns: Sexual function Denies Troubled by feelings Denies Frequency: Eating healthy diet Most of the time ADLs requiring help Denies Safety precautions in home/vehicle Always wears seatbelt in car, steps have handrails, floors are clutter free, bathrooms do not have grab bars Smoke, vape, chews tobacco Smokes 1 ppd Difficulty hearing Has hearing aides but does not often wear them since she is home alone often Difficulty seeing Denies - wears glasses Current Providers Specialists: I have reviewed specialist-related care of the patient in the medical record. Optometry - [facility] - goes yearly Cardiology - [facility] Gastroenterology - Dr. Barrera Medical/Family history review Reviewed and updated problem list, medical/surgical/family /social history, medications, and allergies. Opioid use review Opioid Medications (last 90 days) No data to display Anxiety/Depression screening PHQ2 is 0 Bahrat 2 is 0 Recommendation: no further intervention at this time Cognitive screening Mini Cog Score: 5 Cognitive screening reviewed and No further action needed (score 3-5). Functional Observation Was the patient's Timed Up AND Go test unsteady or >= 12 seconds? No Advance Care Planning Patient did not wish or was not able to name a surrogate decision maker or provide an advance care plan Measurements BP 122/80 Pulse 96 Ht 173 cm (5' 8.11) Wt 69.4 kg (153 lb) SpO2 96% BMI 23.19 kg/m? Vision Screening: Follows with optometry/ophthalmology Assessment/Plan Medicare annual wellness visit, subsequent (Z00.00) - Counseled on healthy diet and regular exercise - Fall avoidance information provided - Personalized prevention plan provided - Smoking cessation encouraged; discussed risks to health and quitting strategies. Patient is not ready to quit ASSESSMENT/PLAN: 1. Medicare annual wellness visit, subsequent - ICD9: V70.0, ICD10: Z00.00 (primary diagnosis) - Counseled on healthy diet and regular exercise - Breast cancer screening - ordered mammogram - Smoking cessation encouraged; discussed health risks and quitting strategies. Patient is not ready to quit - Follow up for annual exam in one year 2. Tobacco use disorder - ICD9: 305.1, ICD10: F17.200 - Cessation encouraged. - Physiologic and physical aspects of tobacco addiction as well as strategies for quitting were discussed. - Counseling was given focusing on the harmful effects of this addiction especially given the patient's medical condition(s) which will be worsened because of the chemicals in tobacco. DOROTA Rucker Joy, APRN.CNP 12/10/2024 10:39 AM Signed Screening schedule The following prevention plan is recommended: BP Controlled (<130/80) Never done Mammogram Screening due on 03/22/2024 WHAT YOU CAN DO TO PREVENT FALLS Many falls can be prevented. By making some changes, you can lower your chances of falling. Four things YOU can do to prevent falls for you* and your caregiver 1. Begin a regular exercise program Exercise is one of the most important ways to lower your chances of falling. It makes you stronger and helps you feel better. Exercises that improve balance and coordination (like Denis Chi) are the most helpful. Lack of exercise leads to weakness and increases your chances of falling. Ask your doctor or health care provider about the best type of exercise program for you. 2. Have your health care provider review your medicines Have your doctor or pharmacist review all the medicines you take, even bfyr-dll-cfkykoe medicines. As you get older, the way medicines work in your body can change. Some medicines, or combinations of medicines, can make you sleepy or dizzy and can cause you to fall. 3. Have your vision checked Have your eyes checked by an eye doctor at least once a year. You may be wearing the wrong glasses or have a condition like glaucoma or cataracts that limits your vision. Poor vision can increase your chances of falling. 4. Make your home safer About half of all (more content not included)... Normal [facility] Basic metabolic 2000 panelon 12-08-2024 Anion gap [Moles/Vol] 9 mmol/L Normal 8-15 [facility] Comment on above: Order Comment: Speci men Type: BLOOD SPECIMENOrdering Facility: [facility] Address: [address] [place], [place] [address] Performed By: #### 2 4321-2, 23050-1 ####[facility] LABCLIA [id number] [address] [address] [place] Calcium [Mass/Vol] 10.0 mg/dL Normal 8.5-10.2 [facility] Comment on above: Order Comment: Speci men Type: BLOOD SPECIMENOrdering Facility: [facility] Address: [address] [place], [place] [address] Performed By: #### 2 4321-2, 67109-3 ####[facility] LABCLIA [id number] [place] [address] [place] Chloride [Moles/Vol] 104 mmol/L Normal 98-107 [facility] Comment on above: Order Comment: Speci men Type: BLOOD SPECIMENOrdering Facility: [facility] Address: [address] [place], [place] [address] Performed By: #### 2 432-2, 59045-3 ####[facility] LABCLIA [id number] [place] [address] [place] CO2 [Moles/Vol] 27 mmol/L Normal 22-[address] [facility] Comment on above: Order Comment: Speci men Type: BLOOD SPECIMENOrdering Facility: [facility] Address: [address] [place], [place] [address] Performed By: #### 2 1-2, 51425-0 ####[facility] LABCLIA [id number] [place] [address] [place] Creatinine [Mass/Vol] 0.67 mg/dL Normal 0.58-0.96 [facility] Comment on above: Order Comment: Speci men Type: BLOOD SPECIMENOrdering Facility: [facility] Address: [address] [place], [place] [address] Performed By: #### 2 4321-2, 73486-7 ####[facility] LABCLIA [id number] [place] [address] [place] Creatinine and Glomerular filtration rate.predicted panel (S/P/Bld) 97 mL/min/1.73m??? Normal >=[address] [facility] Comment on above: Order Comment: Nhan barber Type: BLOOD SPECIMENOrdering Facility: [facility] Address: [address] [place] [address] Result Comment: Hawa mated Glomerular Filtration Rate (eGFR) is calculated using the 2020 CKD-EPI creatinine equation. This equation utilizes serum creatinine, sex, and age as parameters. The creatinine assay has traceable calibration to isotope dilution-mass spectrometry. Refer to KDIGO guidelines for clinical interpretation. In patients with unstable renal function, e.g. those with acute kidney injury, the eGFR may not accurately reflect actual GFR. Performed By: #### 2 4321-2, 08412-6 ####[facility] LABIA [id number] [place] [address] [place] Glucose [Mass/Vol] 94 mg/dL Normal 74-99 [facility] Comment on above: Order Comment: Nhan barber Type: BLOOD SPECIMENOrdering Facility: [facility] Address: [address] [place] [address] Result Comment: The [place] Diabetes Association (ADA) provides guidance for cutoff values for fasting glucose and random glucose. The ADA defines fasting as no caloric intake for at least 8 hours. Fasting plasma glucose results between 100 to 125 mg/dL indicate increased risk for diabetes (prediabetes). Fasting plasma glucose results greater than or equal to 126 mg/dL meet the criteria for diagnosis of diabetes. In the absence of unequivocal hyperglycemia, results should be confirmed by repeat testing. In a patient with classic symptoms of hyperglycemia or hyperglycemic crisis, random plasma glucose results greater than or equal to 200 mg/dL meet the criteria for diagnosis of diabetes. Reference: Standards of Medical Care in Diabetes 2016, [place] Diabetes Association. Diabetes Care. 2016.39(Suppl 1). Performed By: #### 2 4321-2, 79644-5 ####[facility] LABCLIA [id number] [place] [address] [place] Potassium [Moles/Vol] 4.8 mmol/L Normal 3.7-5.1 [facility] Comment on above: Order Comment: Speci men Type: BLOOD SPECIMENOrdering Facility: [facility] Address: [address] [place] [address] Performed By: #### 2 4321-2, 44724-4 ####[facility] LABCLIA [id number] [place] [address] [place] Sodium [Moles/Vol] 140 mmol/L Normal 136-144 [facility] Comment on above: Order Comment: Speci men Type: BLOOD SPECIMENOrdering Facility: [facility] Address: [address] [place] [address] Performed By: #### 2 4321-2, 10722-2 ####[facility] LABIA [id number] [place] [address] [place] Urea nitrogen [Mass/Vol] 12 mg/dL Normal 7-[address] [facility] Comment on above: Order Comment: Speci men Type: BLOOD SPECIMENOrdering Facility: [facility] Address: [address] [place] [address] Performed By: #### 2 4321-2, 62252-5 ####[facility] LABIA [id number] [place] [address] [place] CBC panel Auto (Bld)on 12-08 Erythrocyte distribution width (RBC) [Ratio] 13.1 % Normal 11.5-15.[address] [facility] Comment on above: Order Comment: Speci men Type: BLOOD SPECIMENOrdering Facility: [facility] Address: [address] [place] [address] Performed By: #### 5 8410-2 ####[facility] LABIA [id number] [place] [address] [place] Hematocrit (Bld) [Volume fraction] 44.4 % Normal 36.0-46.[address] [facility] Comment on above: Order Comment: Speci men Type: BLOOD SPECIMENOrdering Facility: [facility] Address: [address] [place] [address] Performed By: #### 5 8410-2 ####[facility] LABIA [id number] [place] [address] [place] Hemoglobin (Bld) [Mass/Vol] 14.8 g/dL Normal 11.5-15.[address] [facility] Comment on above: Order Comment: Speci men Type: BLOOD SPECIMENOrdering Facility: [facility] Address: [address] [place] [address] Performed By: #### 5 8410-2 ####[facility] LABIA [id number] [place] [address] [place] MCH (RBC) [Entitic mass] 30.9 pg Normal 26.0-34.[address] [facility] Comment on above: Order Comment: Speci men Type: BLOOD SPECIMENOrdering Facility: [facility] Address: [address] [place] [address] Performed By: #### 5 8410-2 ####[facility] LABIA [id number] [place] [address] [place] MCHC (RBC) [Mass/Vol] 33.3 g/dL Normal 30.5-36.0 [facility] Comment on above: Order Comment: Speci men Type: BLOOD SPECIMENOrdering Facility: [facility] Address: [address] [place] [address] Performed By: #### 5 8410-2 ####[facility] LABIA [id number] [place] [address] [place] MCV (RBC) [Entitic vol] 92.7 fL Normal 80.0-100.[address] [facility] Comment on above: Order Comment: Speci men Type: BLOOD SPECIMENOrdering Facility: [facility] Address: [address] [place] [address] Performed By: #### 5 8410-2 ####[facility] LABCLIA [id number] [place] [address] [place] Nucleated RBC (Bld) [#/Vol] 10*3/uL Normal <0.[address] [facility] Comment on above: Order Comment: Speci men Type: BLOOD SPECIMENOrdering Facility: [facility] Address: [address] [place] [address] Performed By: #### 5 8410-2 ####[facility] LABCLIA [id number] [place] [address] [place] Platelet mean volume (Bld) [Entitic vol] 12.9 fL High 9.0-12.[address] [facility] Comment on above: Order Comment: Speci men Type: BLOOD SPECIMENOrdering Facility: [facility] Address: [address] [place] [address] Performed By: #### 5 8410-2 ####[facility] LABCLIA [id number] [place] [address] [place] Platelets (Bld) [#/Vol] 244 10*3/uL Normal 150-[address] [facility] Comment on above: Order Comment: Speci men Type: BLOOD SPECIMENOrdering Facility: [facility] Address: [address] [place] [address] Performed By: #### 5 8410-2 ####[facility] LABCLIA [id number] [address] [address] [place] RBC (Bld) [#/Vol] 4.79 10*6/uL Normal 3.90-5.20 [facility] Comment on above: Order Comment: Speci men Type: BLOOD SPECIMENOrdering Facility: [facility] Address: [address] [place] [address] Performed By: #### 5 8410-2 ####[facility] LABCLIA [id number] [address] [address] [place] WBC (Bld) [#/Vol] 6.62 10*3/uL Normal 3.70-11.00 [facility] Comment on above: Order Comment: Speci men Type: BLOOD SPECIMENOrdering Facility: [facility] Address: [address] [place] [address] Performed By: #### 5 8410-2 ####[facility] LABCLIA [id number] [place] [address] [place] Lipid 1996 panelon 5 Cholesterol [Mass/Vol] 121 mg/dL Normal <[address] [facility] Comment on above: Order Comment: Speci men Type: BLOOD SPECIMENOrdering Facility: [facility] Address: [address] [place] [address] Result Comment: <200 mg/dL, Desirable 200-239 mg/dL, Borderline high >239 mg/dL, High Performed By: #### 2 4321-2, 33437-2 ####[facility] LABCLIA [id number] [address] [place] Cholesterol in HDL [Mass/Vol] 37 mg/dL Low >[address] [facility] Comment on above: Order Comment: Speci men Type: BLOOD SPECIMENOrdering Facility: [facility] Address: [address] [place] [address] Result Comment: 40-5 9 mg/dL, Acceptable >59 mg/dL, High: Negative risk factor for coronary heart disease <40 mg/dL, Low: Positive risk factor for coronary heart disease Performed By: #### 2 4321-2, 02245-8 ####[facility] LABCLIA [id number] [address] [place] Cholesterol in LDL [Mass/Vol] 58 mg/dL Normal <[address] [facility] Comment on above: Order Comment: Speci men Type: BLOOD SPECIMENOrdering Facility: [facility] Address: [address] [place], [place] [address] Result Comment: <100 mg/dL, Optimal 100-129 mg/dL, Near optimal/above optimal 130-159 mg/dL, Borderline high 160-189 mg/dL, High >189 mg/dL, Very high Secondary prevention optimal LDL Cholesterol levels are recommended to be < 70 mg/dL Performed By: #### 2 4321-2, 47886-9 ####[facility] LABCLIA [id number] [address] [address] [place] Cholesterol in LDL/Cholesterol in HDL [Mass ratio] 1.57 {ratio} Normal <2.[address] [facility] Comment on above: Order Comment: Speci men Type: BLOOD SPECIMENOrdering Facility: [facility] Address: [address] [place] [address] Result Comment: Refe rence: 1. National Cholesterol Education Program ATP III Guideline At-A-Glance Quick Desk Reference: National Heart, Lung, and Blood [place]. National Institutes of Health. 2001: NIH Publication No. 01-3305. 2. An International Atherosclerosis Society position paper: global recommendations for the management of dyslipidemia: executive summary, Atherosclerosis. 2014: 232(2):410-413. Performed By: #### 2 4320-2, 50832-4 ####[facility] LABCLIA [id number] [place] [address] [place] Cholesterol in VLDL [Mass/Vol] 26 mg/dL Normal <[address] [facility] Comment on above: Order Comment: Speci men Type: BLOOD SPECIMENOrdering Facility: [facility] Address: [address] [place] [address] Performed By: #### 2 4321-2, 31971-2 ####[facility] LABCLIA [id number] [address] [address] [place] Cholesterol non HDL [Mass/Vol] 84 mg/dL Normal <[address] [facility] Comment on above: Order Comment: Florencei men Type: BLOOD SPECIMENOrdering Facility: [facility] Address: [address], [place] [address] Result Comment: <130 mg/dL, Optimal 130-159 mg/dL, Near optimal/above optimal 160-189 mg/dL, Borderline high 190-219 mg/dL, High >219 mg/dL, Very high Secondary prevention optimal non HDL Cholesterol levels are recommended to be <100 mg/dL Performed By: #### 2 4321-2, 22908-0 ####[facility] LABCLIA [id number] [address], [place] [address] [place] Cholesterol.total/Cho lesterol in HDL [Mass ratio] 3.27 {ratio} Normal <5.[address] [facility] Comment on above: Order Comment: Speci men Type: BLOOD SPECIMENOrdering Facility: [facility] Address: [address] [place] [address] Performed By: #### 2 4321-2, 06540-7 ####[facility] LABCLIA [id number] [address] [place] FASTING TIME 12 hrs Normal [facility] Comment on above: Order Comment: Speci men Type: BLOOD SPECIMENOrdering Facility: [facility] Address: [address] [place] [address] Performed By: #### 2 432-2, 39362-8 ####[facility] LABCLIA [id number] [address], [facility] [place] Triglyceride [Mass/Vol] 128 mg/dL Normal <[address] [facility] Comment on above: Order Comment: Speci men Type: BLOOD SPECIMENOrdering Facility: [facility] Address: [address] [place] [id number] Result Comment: <150 mg/dL, Normal 150-199 mg/dL, Borderline high 200-499 mg/dL, High >499 mg/dL, Very high Performed By: #### 2 432-2, 99146-9 ####[facility] LABCLIA [id number] [address] [place] [address] [place] CNCOon 12-02-2024 CNCO Letter Text Normal [facility] CNCOon 11-27-2024 CNCO Letter Text Normal [facility] CNCOon 10-23-2024 CNCO Letter Text Normal [facility] 12 Lead EKG performed by [facility] on 07-02-2024 12 Lead EKG performed by [facility] [address] [place] [address] 12 Lead EKG performed by [facility] 07/02/24 1004 MR#: [id number] Acct: [id number] Name: NAHEED LYNCH Rep #: [id number] : 1960 64 From: Jerry Pizarro NP VERTICAL CONTOUR BAND SAW OPERATOR-C Attending Dr: Jerry Pizarro VERTICAL CONTOUR BAND SAW OPERATORJeraldC Status: DEP AMB Ordering Dr: Jerry Pizarro NP VERTICAL CONTOUR BAND SAW OPERATORGeorge Date: 07/02/24 [facility] Sex: F C Admitted: BMS/12 Lead EKG performed by [facility] ECG Report Interpretation ---Sinus Bradycardia - T-abnormality -Possible Anterolateral ischemia. ABNORMAL Electronically signed on 07/05/2024 at 13:52 by [employer] Version [id number] 07/05/24 1357 Date Jerry Pizarro NP VERTICAL CONTOUR BAND SAW OPERATOR-C CC: OSMAR GOMES Date Dictated: 07/02/241003 Date Transcribed: 07/02/241003 Information Systems Security Officer: SARAH Signed Normal [facility] Cardiology Visit Reporton Cardiology Visit Report [facility] [address] [place], [place] [address] OFFICE VISIT Date of Service: 07/02/24 MR#: [id number] Acct: [id number] Name: NAHEED LYNCH Rep #: [id number] : 1960 Provider: VERTICAL CONTOUR BAND SAW OPERATORGeorge lr Age/Sex: 64/F Location: [facility] Status: Signed HPI [facility] History of Present Illness Details: NAHEED LYNCH, is a 64 year old white female who presents to the office today for a cardiovascular outpatient follow-up with a history of coronary artery disease status post PCI to her circumflex in 2007, hyperlipidemia, hypertension, aortic valve disease, and tobacco abuse. He denies chest, arm, jaw, or neck discomfort. She denies palpitations. She denies bilateral lower extreme edema. She denies shortness breath with activity, shortness of breath at rest, orthopnea, cough, or PND. She denies lightheadedness, dizziness, near-syncope, or syncope. She denies fatigue. She does acknowledge occasional heartburn. Intake Vital Signs 07/03/23 09:25 06/16/24 10:25 07/02/24 08:56 Height 5 ft 7 in 5 ft 7 in 5 ft 7 in Weight: 149 lb BMI 23.3 BP 121/67 H Blood Pressure Location Lt brachial Position Sitting Respiration 16 Pulse 48 L Pulse Source NIBP Intake Visit Reasons: 1 Y FU/PREV PFM Barrel Loader Required: No Is patient in pain?: No Allergies codeine Allergy (Intermediate, Verified 07/02/24 09:04) nausea and vomiting Medications ???Medication ???Instructions ???Recorded ???Confirmed ???Type aspirin 81 mg tablet,delayed 81 mg PO DAILY heart health 07/09/19 07/02/24 History release (Adult Low Dose Aspirin) pantoprazole 40 mg tablet,delayed 40 mg PO BID #60 tabs 06/16/24 07/02/24 Rx release amlodipine 5 mg tablet 5 mg PO DAILY #90 tabs 06/23/24 07/02/24 Rx atenolol 25 mg tablet 25 mg PO DAILY blood pressure #90 06/23/24 07/02/24 Rx tabs atorvastatin 80 mg tablet 80 mg PO QHS cholesterol #90 tabs 06/23/24 07/02/24 Rx clopidogrel 75 mg tablet 75 mg PO DAILY antiplatelet #90 06/23/24 07/02/24 Rx tabs ramipril 10 mg capsule 20 mg (2 x 10 mg) PO DAILY blood 06/23/24 07/02/24 Rx pressure #180 caps cholecalciferol (vitamin D3) 25 25 mcg PO QDAY 07/02/24 07/02/24 History mcg (1,000 unit) tablet escitalopram oxalate 20 mg tablet 20 mg PO QDAY 07/02/24 07/02/24 History hydrochlorothiazide 25 mg tablet 25 mg PO Q OTHER DAY 07/02/24 History magnesium oxide 400 mg (241.3 mg 400 mg PO QDAY 07/02/24 07/02/24 History magnesium) tablet Ejection fraction %: 55 Have you fallen in the past year?: No Nurse's Note: Taking HCTZ every other day [facility] Medical History Wears partial dentures Arthritis Easy bruising Restless legs History of echocardiogram History of stress test Cardiology follow-up encounter Edema GI bleed Nonrheumatic aortic (valve) stenosis History of left heart catheterization (LHC) ( 04/14/20) Nonrheumatic mitral (valve) insufficiency Pure hypercholesterolemia Essential (primary) hypertension Atherosclerosis of [place] coronary artery of [place] heart without angina pectoris Surgical History Hx of endoscopy History of colonoscopy History of left hip replacement History of tonsillectomy History of hysterectomy History of shoulder surgery History of open reduction and internal fixation (ORIF) procedure History of coronary artery stent placement ( 03/11/08) Family History Father Myocardial infarction Mother Myocardial infarction Brother CAD (coronary artery disease) Hypertension Sister Hypertension Social History household members: spouse Smoking Status: Current every day smoker tobacco type: cigarettes alcohol intake: never substance use type: does not use caffeine: Yes Type: coffee Number of servings: 5 ROS Const Const: Negative for fatigue or weakness Eyes Eyes: Negative for change in vision ENT ENT: Negative for dizziness, Nosebleed/epistaxis or balance problems Cardio Chest Pain: No Palpitations: No Edema: Bilateral (Controlled with HCTZ) Muscle aches with walking: None Resp Respiratory: Negative for SOB with activity, SOB at rest, SOB orthopnea SOB lying down, Cough or paroxysmal nocturnal dyspnea GI GI: Negative nausea, heartburn or black,tarry stools : Negative for hematuria Musc Musc: Negative for muscle aches/ myalgia, muscle weakness, joint pain or balance problems Skin Skin: Negative rash Neuro Neuro: Negative for dizziness, lightheadedness, near syncope, syncope or weakness Mikey Hematologic/Lymphatic: Negative for easy bleeding or easy bruising Endo Endo: Negative for fatigue Allerg (more content not included)... [facility] XR CERVICAL SPINE COMPLETE 6 + VIEWSon 06-30-2024 XR CERVICAL SPINE COMPLETE 6+ VIEWS Interpreted By: Andrea Adams, STUDY: XR CERVICAL SPINE COMPLETE 6+ VIEWS; ; 06/30/2024 8:59 am INDICATION: Signs/Symptoms:SEGMENTA L AND SOMATIC DYSFUNCTION OF CERVICAL REGION. 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 ACCESSION NUMBER(S): [id number] ORDERING CLINICIAN: BELLE GRIDER FINDINGS: CERVICAL SPINE-AP, LATERAL, SWIMMER'S, FLEXION/EXTENSION, OBLIQUE VIEWS Anterior cervical fusion is seen with plate and screws at C5, C6 and C7 levels. The hardware is intact. The bones are osteoporotic. Marked degenerative disc disease changes are present at C3-4 and to a lesser degree at C4-5 level as well as at C7-T1. Loss of cervical lordosis with straightening of the cervical spine and slight anterolisthesis at C4-5. No change in alignment on flexion. However no anterolisthesis on extension. Slight narrowing of the C3-4 intervertebral neural foramina bilaterally secondary to hypertrophic changes at the uncovertebral joints as well as narrowing at the C4-5 intervertebral neural foramina on the right side secondary to degenerative changes at the facet joints. The C7-T1 alignment is preserved. The odontoid process and atlantoaxial distance mild change atlantoaxial joint. IMPRESSION: ANTERIOR CERVICAL FUSION AT C5, C6 AND C7 LEVELS. MARKED DEGENERATIVE DISC DISEASE AT C3-4. FORAMINA NARROWING BILATERALLY AT C3-4 AND ON THE RIGHT SIDE AT C4-5 SECONDARY TO DEGENERATIVE CHANGES. MACRO: None Signed by: Andrea Adams 06/30/2024 2:22 PM Dictation workstation: [id number] [facility] XR Cervical spine 6 Viewson 06-30-2024 ANTERIOR CERVICAL FUSION AT C5, C6 AND C7 LEVELS. MARKED DEGENERATIVE DISC DISEASE AT C3-4. FORAMINA NARROWING BILATERALLY AT C3-4 AND ON THE RIGHT SIDE AT C4-5 SECONDARY TO DEGENERATIVE CHANGES. MACRO: None Signed by: Andrea Adams 06/30/2024 2:22 PM Dictation workstation: [id number] MMODAL Interpreted By: Andrea Adams, STUDY: XR CERVICAL SPINE COMPLETE 6+ VIEWS; ; 06/30/2024 8:59 am INDICATION: Signs/Symptoms:SEGMENTA L AND SOMATIC DYSFUNCTION OF CERVICAL REGION. 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 ACCESSION NUMBER(S): [id number] ORDERING CLINICIAN: BELLE GRIDER FINDINGS: CERVICAL SPINE-AP, LATERAL, SWIMMER'S, FLEXION/EXTENSION, OBLIQUE VIEWS Anterior cervical fusion is seen with plate and screws at C5, C6 and C7 levels. The hardware is intact. The bones are osteoporotic. Marked degenerative disc disease changes are present at C3-4 and to a lesser degree at C4-5 level as well as at C7-T1. Loss of cervical lordosis with straightening of the cervical spine and slight anterolisthesis at C4-5. No change in alignment on flexion. However no anterolisthesis on extension. Slight narrowing of the C3-4 intervertebral neural foramina bilaterally secondary to hypertrophic changes at the uncovertebral joints as well as narrowing at the C4-5 intervertebral neural foramina on the right side secondary to degenerative changes at the facet joints. The C7-T1 alignment is preserved. The odontoid process and atlantoaxial distance mild change atlantoaxial joint. MMODAL Andrea Adams MD - 06/30/2024 Interpreted By: Andrea Adams, STUDY: XR CERVICAL SPINE COMPLETE 6+ VIEWS; ; 06/30/2024 8:59 am INDICATION: Signs/Symptoms:SEGMENTA L AND SOMATIC DYSFUNCTION OF CERVICAL REGION. 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 ACCESSION NUMBER(S): [id number] ORDERING CLINICIAN: BELLE GRIDER FINDINGS: CERVICAL SPINE-AP, LATERAL, SWIMMER'S, FLEXION/EXTENSION, OBLIQUE VIEWS Anterior cervical fusion is seen with plate and screws at C5, C6 and C7 levels. The hardware is intact. The bones are osteoporotic. Marked degenerative disc disease changes are present at C3-4 and to a lesser degree at C4-5 level as well as at C7-T1. Loss of cervical lordosis with straightening of the cervical spine and slight anterolisthesis at C4-5. No change in alignment on flexion. However no anterolisthesis on extension. Slight narrowing of the C3-4 intervertebral neural foramina bilaterally secondary to hypertrophic changes at the uncovertebral joints as well as narrowing at the C4-5 intervertebral neural foramina on the right side secondary to degenerative changes at the facet joints. The C7-T1 alignment is preserved. The odontoid process and atlantoaxial distance mild change atlantoaxial joint. IMPRESSION: ANTERIOR CERVICAL FUSION AT C5, C6 AND C7 LEVELS. MARKED DEGENERATIVE DISC DISEASE AT C3-4. FORAMINA NARROWING BILATERALLY AT C3-4 AND ON THE RIGHT SIDE AT C4-5 SECONDARY TO DEGENERATIVE CHANGES. MACRO: None Signed by: Andrea Adams 06/30/2024 2:22 PM Dictation workstation: [id number] [facility] Work Phone: Radiology Study observation (narrative) [facility] Work Phone: XR Cervical spine 6 ViewsOrd ered By: Andrea Adams on 06-30-2024 [facility] Work Phone: Colonoscopy Reporton 024 Colonoscopy Report [facility] Medical Records Department [address] [place] [address] Colonoscopy Report MR#: [id number] Acct: [id number] Name: NAHEED LYNCH Rep #: [id number] : 1960 64 From: Willam Barrera DO PCP: OSMAR RUCKER Status:REG [facility] Patient Name: Naheed Lynch Procedure Date: 06/16/2024 11:50 AM Date of : 1960 Age: 64 Procedure: Colonoscopy Indications: Screening for colorectal malignant neoplasm Providers: Willam Barrera DO Referring MD: Usha Gomes Np-briseyda Medicines: Monitored Anesthesia Care Patient Profile: This is a 64 year old female. Refer to note in patient chart for documentation of history and physical. Patient has symptoms of chronic abdominal pain, chronic dyspepsia, chronic heartburn and chronic nausea. Last Colonoscopy: date unknown. Unable to locate last colonoscopy report. Complications: No immediate complications. Procedure: Pre-Anesthesia Assessment: - Prior to the procedure, a History and Physical was performed, and patient medications and allergies were reviewed. The patient is competent. The risks and benefits of the procedure and the sedation options and risks were discussed with the patient. All questions were answered and informed consent was obtained. Patient identification and proposed procedure were verified by the physician in the pre-procedure area. Mental Status Examination: alert and oriented. Airway Examination: normal oropharyngeal airway and neck mobility. Respiratory Examination: clear to auscultation. CV Examination: normal. Prophylactic Antibiotics: The patient does not require prophylactic antibiotics. Prior Anticoagulants: The patient has taken no anticoagulant or antiplatelet agents except for NSAID medication. ASA Grade Assessment: III - A patient with severe systemic disease. After reviewing the risks and benefits, the patient was deemed in satisfactory condition to undergo the procedure. The anesthesia plan was to use monitored anesthesia care (MAC). Immediately prior to administration of medications, the patient was re-assessed for adequacy to receive sedatives. The heart rate, respiratory rate, oxygen saturations, blood pressure, adequacy of pulmonary ventilation, and response to care were monitored throughout the procedure. The physical status of the patient was re-assessed after the procedure. After I obtained informed consent, the scope was passed under direct vision. Throughout the procedure, the patient's blood pressure, pulse, and oxygen saturations were monitored continuously. The Colonoscope was introduced through the anus and advanced to the cecum, identified by appendiceal orifice and ileocecal valve. The colonoscopy was performed without difficulty. The patient tolerated the procedure well. The quality of the bowel preparation was adequate. The ileocecal valve, appendiceal orifice, and rectum were photographed. Scope In: 11:51:24 AM Scope Withdrawal Time 0 hours 7 minutes 39 seconds Scope Out: 12:05:55 PM Total Procedure Duration Time 0 hours 14 minutes 31 seconds Findings: The digital rectal exam findings include decreased sphincter tone. Multiple small and large-mouthed diverticula were found in the entire colon. Impression: - Decreased sphincter tone found on digital rectal exam. - Diverticulosis in the entire examined colon. - No specimens collected. Recommendation: - Discharge patient to home. - Resume previous diet. - Continue present medications. - Repeat colonoscopy in 5 years for surveillance. Procedure Code(s): --- Professional --- G0121, Colorectal cancer screening; colonoscopy on individual not meeting criteria for high risk CPT copyright 2021 [employer]. All rights reserved. The codes documented in this report are preliminary and upon community outreach advocate review may be revised to meet current compliance requirements. Willam Barrera DO 06/16/2024 12:13:50 PM This report has been signed electronically. Number of Addenda: 0 Note Initiated On: 06/16/2024 11:50 AM 06/16/24 1214 Date Willam Barrera DO Cosigner Signature: Date (if indicated) CC: VERTICAL CONTOUR BAND SAW OPERATORGeorge GOMES; Willam Barrera DO Date Dictated: 06/16/24 1150 Date Transcribed: Information Systems Security Officer: STEVE Signed Normal [facility] EGD Reporton 06-16-2024 EGD Report [facility] Medical Records Department [address] [place] [address] EGD Report MR#: [id number] Acct: [id number] Name: NAHEED LYNCH Rep #: [id number] : 1960 64 From: Willam Barrera DO PCP: OSMAR RUCKER Status:REG [facility] Patient Name: Naheed Lynch Procedure Date: 06/16/2024 11:35 AM Date of : 1960 Age: 64 Procedure: Upper GI endoscopy Indications: Epigastric abdominal pain, Iron deficiency anemia Providers: Willam Barrera DO Referring MD: Osmar Rucker Medicines: Monitored Anesthesia Care Patient Profile: This is a 64 year old female. Refer to note in patient chart for documentation of history and physical. Patient has symptoms of chronic abdominal pain, chronic dyspepsia, chronic heartburn and chronic nausea. Complications: No immediate complications. Procedure: Pre-Anesthesia Assessment: - Prior to the procedure, a History and Physical was performed, and patient medications and allergies were reviewed. The patient is competent. The risks and benefits of the procedure and the sedation options and risks were discussed with the patient. All questions were answered and informed consent was obtained. Patient identification and proposed procedure were verified by the physician in the pre-procedure area. Mental Status Examination: alert and oriented. Airway Examination: normal oropharyngeal airway and neck mobility. Respiratory Examination: clear to auscultation. CV Examination: normal. Prophylactic Antibiotics: The patient does not require prophylactic antibiotics. Prior Anticoagulants: The patient has taken no anticoagulant or antiplatelet agents except for NSAID medication. ASA Grade Assessment: III - A patient with severe systemic disease. After reviewing the risks and benefits, the patient was deemed in satisfactory condition to undergo the procedure. The anesthesia plan was to use monitored anesthesia care (MAC). Immediately prior to administration of medications, the patient was re-assessed for adequacy to receive sedatives. The heart rate, respiratory rate, oxygen saturations, blood pressure, adequacy of pulmonary ventilation, and response to care were monitored throughout the procedure. The physical status of the patient was re-assessed after the procedure. After obtaining informed consent, the endoscope was passed under direct vision. Throughout the procedure, the patient's blood pressure, pulse, and oxygen saturations were monitored continuously. The Colonoscope was introduced through the mouth, and advanced to the second part of duodenum. The upper GI endoscopy was accomplished without difficulty. The patient tolerated the procedure well. Scope In: Scope Out: 11:49:51 AM Findings: Non-severe esophagitis with no bleeding was found 39 to 40 cm from the incisors. Biopsies were taken with a cold forceps for histology. Verification of patient identification for the specimen was done. Estimated blood loss was minimal. Patchy moderate inflammation characterized by erythema was found at the pylorus. Biopsies were taken with a cold forceps for histology. Verification of patient identification for the specimen was done. Biopsies were taken with a cold forceps for Helicobacter pylori testing. Verification of patient identification for the specimen was done. Estimated blood loss was minimal. No gross lesions were noted in the first portion of the duodenum. Impression: - Non-severe reflux esophagitis with no bleeding. Biopsied. - Chronic gastritis. Biopsied. - No gross lesions in the first portion of the duodenum. Recommendation: - Discharge patient to home. - Resume previous diet. - Continue present medications. - Await pathology results. Procedure Code(s): --- Professional --- 44295, Esophagogastroduodenosc opy, flexible, transoral; with biopsy, single or multiple CPT copyright 2021 [employer]. All rights reserved. The codes documented in this report are preliminary and upon community outreach advocate review may be revised to meet current compliance requirements. Willam Barrera DO 06/16/2024 12:10:18 PM This report has been signed electronically. Number of Addenda: 0 Note Initiated On: 06/16/2024 11:35 AM 06/16/24 1210 Date Willam Barrera DO Cosigner Signature: Date (if indicated) CC: VERTICAL CONTOUR BAND SAW OPERATOR-Briseyda GOMES; Willam Barrera DO Date Dictated: 06/16/24 4835 Date Transcribed: Information Systems Security Officer: STEVE Signed [facility] H Pylori (initial)on 024 H Pylori (initial) --- Patient Age/Sex Location Account Attending Physician NAHEED LYNCH/F EN [id number] Willam Barrera DO Specimen: [id number] Received: 06/16/24 Status: HEATHER Le Num: [id number] Spec Type: IMMUNO Subm Dr: Willam Barrera DO PHYSICIAN INSTITUTION [place] [address] SPECIMEN INFORMATION: Tissue Source: A- Pyloric sphincter biopsy Clinical Info: GI bleed Specimen Number: [id number] CPT code: 97865,19804s3 METHODOLOGY: Deparaffinized sections of prefer/formalin-fixed tissue or PAP/DQ stained slides are incubated with monoclonal/polyclonal antibodies/oligonucleot amara probes. Localization is made via biotin free immunoperoxidase method. Appropriate controls are performed and reacted as expected. Results on target cell population are indicated in the following table: RESULTS: ANTIBODY / CLONE RESULT Block A H Pylori (polyclonal) negative P53 (DO-7) positive, wild type Ki-67 (30-9) positive, low These tests were developed and their performance characteristics determined by [facility]. They may not have been cleared or approved by the U.S. Food and Drug Administration. The FDA has determined that such clearance or approval is not necessary. The above immunohistochemical/brady Miko markers are ordered and reviewed by the Pathologist. INTERPRETATION: A. Pyloric sphincter, biopsy: Negative for Helicobacter pylori organisms. No evidence of dysplasia. AM. 06/18/2024 Signed (signature on file) Dr. Baltazar Byrne DO 06/18/24 1126 Normal [facility] Comment on above: Performed By: #### L 500.2500 #### [facility] [address] [place], [address] MR/POSTOP.ANEon 06-16-2024 MR/POSTOP.ANE [facility] Medical Records Department [address] [place] [address] Anesthesia Postop Eval I 06/16/24 1213 MR#: [id number] Acct: [id number] Name: NAHEED LYNCH Rep #: [id number] : 1960 64 From: Loc Ortiz PCP: JEAN CLAUDE RUCKERC Status:REG [facility] Y Race: C Location: [place] [address] Anesthesia: Postop Eval I Current Vital Signs Temperature: 98.1 F Pulse Rate: 57 Blood Pressure: 92/62 Respiratory Rate: 16 Pulse Ox: 96 Oxygen Delivery Method: Room Air Assessment Airway patent: Yes Spontaneous unlabored respirations: Yes Mental status: Asleep nausea: No Vomiting: No Anesthesia Complication: No Fluid Hydration Crystalloid volume administer (ml): 40 Total IV fluid infused: 40 Progress Note Anesthesia document: Postop Eval 1 completed: Yes 06/16/241213 Date Loc Ivoryignlcuy Signature: Date CC: Signed [facility] MR/[id number] 06-16-2024 MR/POSTOPAN2 [facility] Medical Records Department [address] [place] [address] Anesthesia Postop Eval II 06/16/24 1646 MR#: [id number] Acct: [id number] Name: NAHEED LYNCH Rep #: [id number] : 1960 64 From: Roberto Johns MD PCP: USHA GOMES, VERTICAL CONTOUR BAND SAW OPERATOR-C Status:DEP [facility] Y Race: C Location: EN Anesthesia Postop Eval I Sum Postop Eval Completion status Anesthesia document: Postop Eval 1 completed: Yes Anesthesia Postop Eval I Summary Anesthesia Postop Eval I Summary: Anesthesia Postop Eval I: Assessment Summary Airway patent Yes 06/16/24 12:14 [email or web address] Spontaneous unlabored Yes 06/16/24 12:14 [email or web address] respirations Mental status Asleep 06/16/24 12:14 [email or web address] nausea No 06/16/24 12:14 [email or web address] Vomiting No 06/16/24 12:14 [email or web address] Anesthesia Postop Eval I: Fluid Summary Crystalloid volume administer 40 06/16/24 12:14 [email or web address] (ml) Colloids volume administered ( ml) Blood Product volume administered (ml) Total IV fluid infused 40 06/16/24 12:14 [email or web address] Anesthesia Postop Eval I: Summary Notes Anesthesia Complication No 06/16/24 12:14 [email or web address] Anesthesia Complication Comment: Post-operative progress note Anesthesia: Postop Eval II Evaluation Mental status: Awake and Calm Pain Level: 0 nausea: No Vomiting: No Complications Anesthesia Complication: No 06/16/241646 Date Roberto Johns MD Cosigner Signature: Date CC: Signed Normal [facility] Special Stain Group Ion 10- Special Stain Group I ----- Patient Age/Sex Location Account Attending Physician NAHEED LYNCH 64/F EN [id number] Willam Barrera DO Specimen: [id number] Received: 06/16/24 Status: HEATHER Le Num: [id number] Spec Type: COLON BX Subm Dr: Willam Barrera DO HEADER OPERATION: Colonoscopy, EGD with biopsies PRE-OP DIAGNOSIS: GI bleed TISSUE SUBMITTED: A- Pyloric sphincter biopsy, B- Gastric body biopsy, C- Distal esophagus biopsy MICROSCOPIC DIAGNOSIS A. Prepyloric sphincter, biopsy: Intestinal metaplasia and mild chronic inflammation. No evidence of dysplasia. See comment. B. Gastric body, biopsy: Mild chronic gastritis. C. Distal esophagus, biopsy: Gastric mucosa with mild chronic inflammation. No evidence of goblet cell metaplasia. See comment. AM 06/17/2024 COMMENT A. The results of immunohistochemistry for Helicobacter pylori will be reported separately ([id number]). C. Alcian blue/PAS stain with matched control is used in the evaluation of the specimen. MICROSCOPIC DESCRIPTION Slides are reviewed. GROSS DESCRIPTION A. Received in fixative is one container labeled with the patient's name and designated Pyloric sphincter biopsy. The specimen consists of two irregular fragments of light lang soft tissue that in aggregate measure 0.6 x 0.2 x 0.1 cm. The specimen is totally submitted in one cassette. B. Received in fixative is one container labeled with the patient's name and designated Gastric body biopsy. The specimen consists of multiple irregular fragments of light lang soft tissue that in aggregate measure 1.0 x 0.6 x 0.1 cm. The specimen is totally submitted in one cassette. C. Received in fixative is one container labeled with the patient's name and designated Distal esophagus biopsy. The specimen consists of one irregular fragment of light lang soft tissue that measures 0.6 x 0.2 x 0.1 cm. The specimen is totally submitted in one cassette. 06/16/2024 TC:3 Patient Age/Sex Location Account Attending Physician NAHEED LYNCH 64/F JESSICA [id number] Willam Barrera DO CPT:[id number] Patient Age/Sex Location Account Attending Physician NAHEED LYNCH 64/F EN [id number] Willam Barrera DO Signed (signature on file) Dr. Baltazar Byrne DO 06/18/24 1000 [facility] Comment on above: Performed By: #### L 500.2500 #### [facility] [address] [place], [address] CNOVon 06-11-2024 CNOV Office Visit (INTMWS ) NAHEED LYNCH ([id number]) 1960 F Date Time Provider Department 06/11/24 10:00 AM USHA GOMES INTJANETT During your visit today, we recorded the following information about you: Pulse Respiration Blood pressure Weight 56/minute 16/minute 132/62 68 kg OlderUsha APRN.CAMPUS REP 06/11/2024 10:25 AM Signed CC: Patient presents with: Recheck: 6 month follow up HPI Naheed Lynch is a 64 year old female who presents today for routine follow up. HTN, CAD w/ Stent many years ago: Ms. Lynch indicates that she is feeling well and denies any symptoms referable to elevated blood pressure. Specifically denies headache, chest pain, palpitations, dyspnea, and peripheral edema. Patient denies any side effects of her medication(s) and is compliant with their regimen. She does check BP's away from this office with average BP's in the 120/60s range. Naheed works out regularly 7 times per week with walking [place]. She watches her diet for sodium, low fat and low cholesterol most of the time. Last 3 Encounter BP Readings: Date: BP: 06/11/2024 132/62 01/14/2024 130/78 01/07/2024 154/75[bp average[ Anxiety and Depression: Feels well controlled on current treatment Sleep: is described as normal Alcohol use: does not drink any alcohol Drug use: No Appetite: good Suicidal Thoughts: No suicidal ideation, intent or plan Support: Comes from multiple sources including family REVIEW OF SYSTEMS See HPI PAST MEDICAL HISTORY Diagnosis Date Bilateral optic neuritis Chronic interstitial cystitis Coronary artery disease 2007 one stent placed Dyspareunia Irritable bowel syndrome Mental disorder Other disorder of menstruation and other abnormal bleeding from female genital tract Unspecified essential hypertension Essential hypertension Uterovaginal prolapse, complete PAST SURGICAL HISTORY Procedure Laterality Date COLONOSCOPY FLX DX W/COLLJ SPEC WHEN PFRMD 08/23/2018 Colonoscopy ESOPHAGOGASTRODUODENOSC OPY TRANSORAL DIAGNOSTIC 04/25/2019 EGD HEART CATHETERIZATION Left 2007 left circumflex stent HEART SURGERY HX LIG/TRNSXJ FLP TUBE ABDL/VAG APPR UNI/BI Tubal ligation PAST SURGICAL HISTORY OF 06/07/2006 right shoulder arthroscopy (biceps tenodesis and SLAP repair) PAST SURGICAL HISTORY OF 09/07/2011 neck surgery plate put in C 5-7 TONSILLECTOMY PRIMARY/SECONDARY Tonsillectomy VAGINAL HYSTERECTOMY UTERUS 250 GM/< Hysterectomy, vaginal ALLERGIES Codeine and Ultracet [Tramadol-Acetaminophen ] MEDICATIONS hydrOXYzine HCl (ATARAX) 25 mg tablet take 1 tablet by mouth three times a day as needed for anxiety MAGNESIUM ORAL Take by mouth. amLODIPine (NORVASC) 10 mg tablet Take 1 tablet by mouth once daily. escitalopram oxalate (LEXAPRO) 20 mg tablet Take 1 tablet by mouth once daily. Appointment needed for further refills. ramipril (ALTACE) 10 mg capsule Take 2 capsules by mouth once daily. Cholecalciferol, Vitamin D3, 25 mcg (1,000 unit) cap Take 1 capsule by mouth once daily. atorvastatin (LIPITOR) 80 mg tablet Take 80 mg by mouth once daily. clopidogrel (PLAVIX) 75 mg tablet Take 75 mg by mouth once daily. aspirin(ADULT LOW DOSE ASPIRIN 81 MG TAB, DELAYED RELEASE) Take one(1) tablet daily. FAMILY HISTORY Problem Relation Age of Onset Heart Mother MD Coronary Artery Disease Mother Heart Father MD Coronary Artery Disease Father Heart Maternal Grandmother MD Heart Paternal Grandmother MD Breast Cancer Paternal Grandmother sinus cancer Heart Paternal Grandfather MD Hypertension Brother Ischemic Heart Disease Brother age 42 MD, etoh, tob and drug use Multiple Sclerosis No Family History Coronary Artery Disease Brother Social History Tobacco Use Smoking status: Every Day Current packs/day: 1.00 Average packs/day: 1 pack/day for 50.0 years (50.0 ttl pk-yrs) Types: Cigarettes Smokeless tobacco: Never Tobacco comments: since age 14 Substance Use Topics Alcohol use: No Drug use: No PHYSICAL EXAM BP 132/62 Pulse (!) 56 Resp 16 Wt 68 kg (150 lb) SpO2 97% BMI 23.15 kg/m? General Appearance: well appearing, in no acute distress, alert Pysch: mood and affect broad and appropriate Eyes: conjunctiva pink and moist, no icterus, sclera white, non-injected Lungs: Lungs clear to auscultation. No wheezing, rhonchi, rales. Heart: RRR with grade 3 systolic murmur, gallop, or rubs. No ectopy Health maintenance reviewed with patient: Depression Screening Never done Anxiety Screening Never done Hepatitis C Screening Never done BP Controlled (<130/80) Never done DTaP,Tdap,Td Vaccine(1 - Tdap) due on 11/19/2007 Shingrix Vaccine(1 of 2) Never done Mammogram Screening due on 03/22/2024 Covid-19 Vaccine(2023- season) due on 05/04/2024 LDL Cholesterol due on 07/11/2024 Pneumococcal Vaccine: (more content not included)... Normal [facility] Celiac Disease Profileon ENDOMYSIAL IGA Negative Normal Negative [facility] Comment on above: Order Comment: N Performed By: #### L 500.2500 #### [facility] [address] [facility], [address] tTG IGA <2 Normal 0-3 [facility] Comment on above: Order Comment: N Result Comment: Nega tive 0 - 3 Weak Positive 4 - 10 Positive >10 Tissue Transglutaminase (tTG) has been identified as the endomysial antigen. Studies have demonstr- ated that endomysial IgA antibodies have over 99% specificity for gluten sensitive enteropathy. Performed By: #### L 500.2500 #### [facility] [address] [facility] [place], [address] Haptoglobinon 05-12-2024 HAPTOGLOBIN 65 mg/dL Normal 37-355 [facility] Comment on above: Order Comment: N Result Comment: Perf ormed at: - [facility] [id number] Biomaterials Engineer: Marbin Ulloa PhD, Phone: [phone] Performed By: #### L 503.6550, L500.4050, L100.9950, L3410.2400, L100.0100, L503.6075, L503.6150, L504.2610, L3100.1850, L3100.3425 #### [facility] [address] [place], [address] LISSET + Protein Elect, Serumon 05-12-2024 Albumin [Mass/Vol] 3.3 g/dL Normal 2.9-4.4 [facility] Comment on above: Order Comment: N Performed By: #### L 500.2500 #### [facility] [address] [place], [address] Albumin/Globulin [Mass ratio] 1.2 {ratio} Normal 0.7-1.7 [facility] Comment on above: Order Comment: N Performed By: #### L 500.2500 #### [facility] [address] [place], [address] TXDQV-4-XRML 0.3 g/dL Normal 0.0-0.4 [facility] Comment on above: Order Comment: N Performed By: #### L 500.2500 #### [facility] [address] [place], [address] UODTV-0-XZEC 0.6 g/dL Normal 0.4-1.0 [facility] Comment on above: Order Comment: N Performed By: #### L 500.2500 #### [facility] [address] [place], [address] BETA GLOBULIN 0.8 g/dL Normal 0.7-1.3 [facility] Comment on above: Order Comment: N Performed By: #### L 500.2500 #### [facility] [address] [place], [address] GAMMA GLOBULIN 1.1 g/dL Normal 0.4-1.8 [facility] Comment on above: Order Comment: N Performed By: #### L 500.2500 #### [facility] [address] [place], [address] Globulin (S) [Mass/Vol] 2.8 g/dL Normal 2.2-3.9 [facility] Comment on above: Order Comment: N Performed By: #### L 500.2500 #### [facility] [address] [place], [address] LISSET RESULT,S Comment Normal . [facility] Comment on above: Order Comment: N Result Comment: No m onoclonality detected. Performed By: #### L 500.2500 #### [facility] [address] [place], [address] IMMUNOGLOB A QN 101 mg/dL Normal 87-352 [facility] Comment on above: Order Comment: N Performed By: #### L 500.2500 #### [facility] [address] [place], [address] IMMUNOGLOB G QN 738 mg/dL Normal 586-1602 [facility] Comment on above: Order Comment: N Performed By: #### L 500.2500 #### [facility] [address] [place], [address] IMMUNOGLOB M QN 509 mg/dL High 26-217 [facility] Comment on above: Order Comment: N Performed By: #### L 500.2500 #### [facility] [address] [place], [address] M-Denys Not Observed Normal Not Observed [facility] Comment on above: Order Comment: N Performed By: #### L 500.2500 #### [facility] [address] [place], [address] NOTE: Comment Normal . [facility] Comment on above: Order Comment: N Result Comment: Prot ein electrophoresis scan will follow via computer, mail, or residential finish carpenter delivery. Performed By: #### L 500.2500 #### [facility] [address] [place], [address] Protein [Mass/Vol] 6.1 g/dL Normal 6.0-8.5 [facility] Comment on above: Order Comment: N Performed By: #### L 500.2500 #### [facility] [address] [place], [address] CBC W/Diff, Automatedon 09-0 6-2023 Absolute Lymph 1.28 X10 3/uL Normal 0.83-4.51 [facility] Comment on above: Performed By: #### L 503.6550, L500.4050, L100.9950, L3410.2400, L100.0100, L503.6075, L503.6150, L504.2610, L3100.1850, L3100.3425 #### [facility] [address] [place], [address] Absolute Neut 5.0 X10 3/uL Normal 2.0-7.7 [facility] Comment on above: Performed By: #### L 503.6550, L500.4050, L100.9950, L3410.2400, L100.0100, L503.6075, L503.6150, L504.2610, L3100.1850, L3100.3425 #### [facility] [address] [place], [address] Basophils/100 WBC (Bld) 0.6 % Normal 0-1 [facility] Comment on above: Performed By: #### L 503.6550, L500.4050, L100.9950, L3410.2400, L100.0100, L503.6075, L503.6150, L504.2610, L3100.1850, L3100.3425 #### [facility] [address] [place], [address] Eosinophils/100 WBC (Bld) 2.9 % Normal 0-5 [facility] Comment on above: Performed By: #### L 503.6550, L500.4050, L100.9950, L3410.2400, L100.0100, L503.6075, L503.6150, L504.2610, L3100.1850, L3100.3425 #### [facility] [address] [place], [place], [id number] (725) Erythrocyte distribution width (RBC) [Ratio] 12.5 % Normal 11.6-14.6 [facility] Comment on above: Performed By: #### L 503.6550, L500.4050, L100.9950, L3410.2400, L100.0100, L503.6075, L503.6150, L504.2610, L3100.1850, L3100.3425 #### [facility] [address] [place], [address] (837) Hematocrit (Bld) [Volume fraction] 37.2 % Normal 37-47 [facility] Comment on above: Performed By: #### L 503.6550, L500.4050, L100.9950, L3410.2400, L100.0100, L503.6075, L503.6150, L504.2610, L3100.1850, L3100.3425 #### [facility] [address] [place], [place], [phone] (163) Hemoglobin (Bld) [Mass/Vol] 12.5 g/dL Normal 12.0-15.0 [facility] Comment on above: Performed By: #### L 503.6550, L500.4050, L100.9950, L3410.2400, L100.0100, L503.6075, L503.6150, L504.2610, L3100.1850, L3100.3425 #### [facility] [address] [place], [place], [phone] (580) IG% 1.200 High 0.0-0.9 [facility] Comment on above: Result Comment: IG% - Immature Granulocytes (promyelocytes, myelocytes and metamyelocytes) > 1% indicates that a LEFT SHIFT is Present. Performed By: #### L 503.6550, L500.4050, L100.9950, L3410.2400, L100.0100, L503.6075, L503.6150, L504.2610, L3100.1850, L3100.3425 #### [facility] [address] [facility], [address] Lymphocytes/100 WBC (Bld) 17.6 % Low 19-41 [facility] Comment on above: Performed By: #### L 503.6550, L500.4050, L100.9950, L3410.2400, L100.0100, L503.6075, L503.6150, L504.2610, L3100.1850, L3100.3425 #### [facility] [address] [facility], [address] MCH (RBC) [Entitic mass] 30.5 pg Normal 27.0-32.0 [facility] Comment on above: Performed By: #### L 503.6550, L500.4050, L100.9950, L3410.2400, L100.0100, L503.6075, L503.6150, L504.2610, L3100.1850, L3100.3425 #### [facility] [address] [facility] [place], [address] MCHC (RBC) [Mass/Vol] 33.6 g/dL Normal 32-36 [facility] Comment on above: Performed By: #### L 503.6550, L500.4050, L100.9950, L3410.2400, L100.0100, L503.6075, L503.6150, L504.2610, L3100.1850, L3100.3425 #### [facility] [address] [place], [address] MCV (RBC) [Entitic vol] 90.7 fL Normal 81-99 [facility] Comment on above: Performed By: #### L 503.6550, L500.4050, L100.9950, L3410.2400, L100.0100, L503.6075, L503.6150, L504.2610, L3100.1850, L3100.3425 #### [facility] [address] [place], [address] Monocytes/100 WBC (Bld) 9.2 % Normal 0-10 [facility] Comment on above: Performed By: #### L 503.6550, L500.4050, L100.9950, L3410.2400, L100.0100, L503.6075, L503.6150, L504.2610, L3100.1850, L3100.3425 #### [facility] [address] [place], [address] Neutrophils/100 WBC (Bld) 68.5 % Normal 47-70 [facility] Comment on above: Performed By: #### L 503.6550, L500.4050, L100.9950, L3410.2400, L100.0100, L503.6075, L503.6150, L504.2610, L3100.1850, L3100.3425 #### [facility] [address] [place], [address] Nucleated RBC (Bld) [#/Vol] 0 10*3/uL Normal 0-5 [facility] Comment on above: Performed By: #### L 503.6550, L500.4050, L100.9950, L3410.2400, L100.0100, L503.6075, L503.6150, L504.2610, L3100.1850, L3100.3425 #### [facility] [address] [place], [address] Platelet mean volume (Bld) [Entitic vol] 10.7 fL Normal 6.2-12.0 [facility] Comment on above: Performed By: #### L 503.6550, L500.4050, L100.9950, L3410.2400, L100.0100, L503.6075, L503.6150, L504.2610, L3100.1850, L3100.3425 #### [facility] [address] [place], [address] Platelets (Bld) [#/Vol] 213 10*3/uL Normal 150-450 [facility] Comment on above: Performed By: #### L 503.6550, L500.4050, L100.9950, L3410.2400, L100.0100, L503.6075, L503.6150, L504.2610, L3100.1850, L3100.3425 #### [facility] [address] [place], [address] RBC (Bld) [#/Vol] 4.10 10*6/uL Low 4.2-5.4 [facility] Comment on above: Performed By: #### L 503.6550, L500.4050, L100.9950, L3410.2400, L100.0100, L503.6075, L503.6150, L504.2610, L3100.1850, L3100.3425 #### [facility] [address] [place], [address] RDW SD 41.5 fl Normal 35.1-43.9 [facility] Comment on above: Performed By: #### L 503.6550, L500.4050, L100.9950, L3410.2400, L100.0100, L503.6075, L503.6150, L504.2610, L3100.1850, L3100.3425 #### [facility] [address] [place], [address] WBC (Bld) [#/Vol] 7.3 10*3/uL Normal 4.4-11.0 [facility] Comment on above: Performed By: #### L 503.6550, L500.4050, L100.9950, L3410.2400, L100.0100, L503.6075, L503.6150, L504.2610, L3100.1850, L3100.3425 #### [facility] [address] [place], [address] CREATININE FINGERSTICKon CREATININE WB < 1.0 Normal 0.55-1.02 [facility] Comment on above: Performed By: #### L 500.2500 #### [facility] [address] [place], [address] EGFR WB > 60.0000 Normal >60 [facility] Comment on above: Performed By: #### L 500.2500 #### [facility] [address] 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 Lower GIB RADIATION DOSAGE (If Supplied By Facility): CTDIvol = ( 23.51 ) mGy, DLP = ( 621.04 ) mGycm TECHNIQUE: Transaxial images were obtained from the dome of the diaphragm to the symphysis pubis without oral contrast. IV 100mL Isovue-370 was administered. Sagittal and coronal images were reconstructed. 3-D images were reconstructed. Individualized dose optimization techniques were used for this CT. COMPARISON: Comparison is made with prior study December 04, 2022. FINDINGS: Minimal increased markings at the right lung base suggestive of atelectasis and/or scarring. Minimal coronary calcification. There is decreased attenuation of the liver consistent with steatosis. Normal gallbladder and extrahepatic biliary system. Normal spleen. Normal pancreas. Normal bilateral adrenal glands. Stable small cysts in the right kidney. Normal left kidney. Normal visualized stomach. Normal small intestine. There are multiple colonic diverticula consistent with diverticulosis. There is non-visualization of the appendix. There is diffuse atherosclerotic calcification of the abdominal aorta, without a demonstrated aneurysm. Normal inferior vena cava. Normal retroperitoneum. Normal urinary bladder. There is absence of the uterus consistent with a prior hysterectomy. Normal abdominal wall. There are degenerative changes of the visualized lumbar spine. Status post left hip replacement. CT/CTA Abd/Pelvis W/WO Contrast IMPRESSION: Fatty infiltration of the liver. Sigmoid diverticulosis. Electronically Signed: Dennis Chaidez MD at 11:46 EDT , CC: OSMAR Dorman; OSMAR GOMES Information Systems Security Officer: Signed Normal [facility] Comprehensive Metabolic Prof raheem 05-09-2024 Albumin [Mass/Vol] 3.2 g/dL Normal 3.2-5.0 [facility] Comment on above: Order Comment: 1 Performed By: #### L 503.6550, L500.4050, L100.9950, L3410.2400, L100.0100, L503.6075, L503.6150, L504.2610, L3100.1850, L3100.3425 #### [facility] [address] [place], [address] Albumin/Globulin [Mass ratio] 0.9 {ratio} Normal 0.9-2.4 [facility] Comment on above: Order Comment: 1 Performed By: #### L 503.6550, L500.4050, L100.9950, L3410.2400, L100.0100, L503.6075, L503.6150, L504.2610, L3100.1850, L3100.3425 #### [facility] [address] [place], [address] ALK P 76 U/L Normal 45-117 [facility] Comment on above: Order Comment: 1 Performed By: #### L 503.6550, L500.4050, L100.9950, L3410.2400, L100.0100, L503.6075, L503.6150, L504.2610, L3100.1850, L3100.3425 #### [facility] [address] [place], [address] ALT [Catalytic activity/Vol] 27 U/L Normal 13-56 [facility] Comment on above: Order Comment: 1 Performed By: #### L 503.6550, L500.4050, L100.9950, L3410.2400, L100.0100, L503.6075, L503.6150, L504.2610, L3100.1850, L3100.3425 #### [facility] [address] [place], [address] AST [Catalytic activity/Vol] 19 U/L Normal 15-37 [facility] Comment on above: Order Comment: 1 Performed By: #### L 503.6550, L500.4050, L100.9950, L3410.2400, L100.0100, L503.6075, L503.6150, L504.2610, L3100.1850, L3100.3425 #### [facility] [address] [place], [address] Bilirubin [Mass/Vol] 0.50 mg/dL Normal 0.20-1.00 [facility] Comment on above: Order Comment: 1 Result Comment: For patients on eltrombopag therapy, use of Dimension [place] TBIL is not recommended. Performed By: #### L 503.6550, L500.4050, L100.9950, L3410.2400, L100.0100, L503.6075, L503.6150, L504.2610, L3100.1850, L3100.3425 #### [facility] [address] [place], [place], [phone] (090 BUN/CRE 28.5 RATIO High 10-20 [facility] Comment on above: Order Comment: 1 Performed By: #### L 503.6550, L500.4050, L100.9950, L3410.2400, L100.0100, L503.6075, L503.6150, L504.2610, L3100.1850, L3100.3425 #### [facility] [address] [place], [address] CA,Total 9.4 mg/dL Normal 8.5-10.1 [facility] Comment on above: Order Comment: 1 Performed By: #### L 503.6550, L500.4050, L100.9950, L3410.2400, L100.0100, L503.6075, L503.6150, L504.2610, L3100.1850, L3100.3425 #### [facility] [address] [place], [address] (165) Chloride [Moles/Vol] 107 mmol/L Normal 98-107 [facility] Comment on above: Order Comment: 1 Performed By: #### L 503.6550, L500.4050, L100.9950, L3410.2400, L100.0100, L503.6075, L503.6150, L504.2610, L3100.1850, L3100.3425 #### [facility] [address] [place], [address] CO2 [Moles/Vol] 24.0 mmol/L Normal 21.0-32.0 [facility] Comment on above: Order Comment: 1 Performed By: #### L 503.6550, L500.4050, L100.9950, L3410.2400, L100.0100, L503.6075, L503.6150, L504.2610, L3100.1850, L3100.3425 #### [facility] [address] [place], [address] Creatinine [Mass/Vol] 0.70 mg/dL Normal 0.55-1.02 [facility] Comment on above: Order Comment: 1 Result Comment: The validity of the calculated GFR GFRAA in patients over 70 years has not been determined. Clinical correlation is essential. Performed By: #### L 503.6550, L500.4050, L100.9950, L3410.2400, L100.0100, L503.6075, L503.6150, L504.2610, L3100.1850, L3100.3425 #### [facility] [address] [place], [address] EST GFR - AA 107 mL/min Normal >60 [facility] Comment on above: Order Comment: 1 Result Comment: Afri can Estonian GFR Calc Performed By: #### L 503.6550, L500.4050, L100.9950, L3410.2400, L100.0100, L503.6075, L503.6150, L504.2610, L3100.1850, L3100.3425 #### [facility] [address] [place], [place], [phone] (522) GAP 6 Normal 5-15 [facility] Comment on above: Order Comment: 1 Performed By: #### L 503.6550, L500.4050, L100.9950, L3410.2400, L100.0100, L503.6075, L503.6150, L504.2610, L3100.1850, L3100.3425 #### [facility] [address] [place], [address] GFR/1.73 sq M.predicted among non-blacks MDRD (S/P/Bld) [Vol rate/Area] 89 mL/min/{1.73_m2} Normal >60 [facility] Comment on above: Order Comment: 1 Result Comment: Non- GFR Calc Performed By: #### L 503.6550, L500.4050, L100.9950, L3410.2400, L100.0100, L503.6075, L503.6150, L504.2610, L3100.1850, L3100.3425 #### [facility] [address] [place], [place], [phone] ([address] Globulin (S) [Mass/Vol] 3.4 g/dL Normal 2.2-4.2 [facility] Comment on above: Order Comment: 1 Performed By: #### L 503.6550, L500.4050, L100.9950, L3410.2400, L100.0100, L503.6075, L503.6150, L504.2610, L3100.1850, L3100.3425 #### [facility] [address] [place], [place], [id number] ([address] Glucose [Mass/Vol] 112 mg/dL High 74-106 [facility] Comment on above: Order Comment: 1 Result Comment: Fast ing Glucose result from 100 to 125 mg/dL suggests IMPAIRED HOMEOSTASIS per A.D.A. criteria. Performed By: #### L 503.6550, L500.4050, L100.9950, L3410.2400, L100.0100, L503.6075, L503.6150, L504.2610, L3100.1850, L3100.3425 #### [facility] [address] [place], [address] Potassium [Moles/Vol] 4.1 mmol/L Normal 3.5-5.1 [facility] Comment on above: Order Comment: 1 Performed By: #### L 503.6550, L500.4050, L100.9950, L3410.2400, L100.0100, L503.6075, L503.6150, L504.2610, L3100.1850, L3100.3425 #### [facility] [address] [place], [place], [phone] (482) Sodium [Moles/Vol] 137 mmol/L Normal 136-145 [facility] Comment on above: Order Comment: 1 Performed By: #### L 503.6550, L500.4050, L100.9950, L3410.2400, L100.0100, L503.6075, L503.6150, L504.2610, L3100.1850, L3100.3425 #### [facility] [address] [place], [address] T PROT 6.6 g/dL Normal 6.4-8.2 [facility] Comment on above: Order Comment: 1 Performed By: #### L 503.6550, L500.4050, L100.9950, L3410.2400, L100.0100, L503.6075, L503.6150, L504.2610, L3100.1850, L3100.3425 #### [facility] [address] [place], [address] Urea nitrogen [Mass/Vol] 20 mg/dL High 7-18 [facility] Comment on above: Order Comment: 1 Performed By: #### L 503.6550, L500.4050, L100.9950, L3410.2400, L100.0100, L503.6075, L503.6150, L504.2610, L3100.1850, L3100.3425 #### [facility] [address] [place], [address] Ferritinon 05-09-2024 Ferritin [Mass/Vol] 58 ng/mL Normal 8-252 [facility] Comment on above: Order Comment: 1 Performed By: #### L 503.6550, L500.4050, L100.9950, L3410.2400, L100.0100, L503.6075, L503.6150, L504.2610, L3100.1850, L3100.3425 #### [facility] [address] [place], [place], [address] Gastroenterology Visit Repor ton 05-09-2024 Gastroenterology Visit Report [facility] [address] [place] [address] OFFICE VISIT Date of Service: 05/09/24 MR#: [id number] Acct: [id number] Name: NAHEED LYNCH Rep #: [id number] : 1960 Provider: OSMAR lam Age/Sex: 64/F [place] [facility] [place] Status: Signed Intake Vital Signs 07/03/23 09:25 Height 5 ft 7 in Intake Visit Reasons: Rectal bleeding Chief Complaint: Rectal Bleeding Accompanied by: Self Is patient in pain?: No Allergies codeine Allergy (Intermediate, Verified 05/09/24 08:35) nausea and vomiting Medications ???Medication ???Instructions ???Recorded ???Confirmed ???Type aspirin 81 mg tablet,delayed 81 mg PO DAILY heart health 07/09/19 05/09/24 History release (Adult Low Dose Aspirin) amlodipine 5 mg tablet 5 mg PO DAILY #90 tabs 06/15/23 05/09/24 Rx atenolol 25 mg tablet 25 mg PO DAILY blood pressure #90 06/15/23 05/09/24 Rx tabs atorvastatin 80 mg tablet 80 mg PO QHS cholesterol #90 tabs 06/15/23 05/09/24 Rx clopidogrel 75 mg tablet 75 mg PO DAILY antiplatelet #90 06/15/23 05/09/24 Rx tabs ramipril 10 mg capsule 20 mg (2 x 10 mg) PO DAILY blood 06/15/23 05/09/24 Rx pressure #180 caps pantoprazole 40 mg tablet,delayed 40 mg PO BID 30 days #60 tabs 08/17/23 08/17/23 Rx release (Protonix) hydrochlorothiazide 25 mg tablet 25 mg PO DAILY #90 tabs 03/17/24 05/09/24 Rx Have you fallen in the past year?: No PFSH Medical History Edema GI bleed Nonrheumatic aortic (valve) stenosis History of left heart catheterization (LHC) ( 04/14/20) Nonrheumatic mitral (valve) insufficiency Pure hypercholesterolemia Essential (primary) hypertension Atherosclerosis of [place] coronary artery of [place] heart without angina pectoris Surgical History History of left hip replacement History of tonsillectomy History of hysterectomy History of shoulder surgery History of open reduction and internal fixation (ORIF) procedure History of coronary artery stent placement ( 03/11/08) Family History Father Myocardial infarction Mother Myocardial infarction Brother CAD (coronary artery disease) Hypertension Sister Hypertension Social History household members: spouse Smoking Status: Current every day smoker tobacco type: cigarettes alcohol intake: current alcohol intake frequency: holidays/special occasions only substance use type: does not use caffeine: Yes Type: coffee Number of servings: 5 HPI HPI Chief Complaint: Rectal Bleeding Details: NAHEED LYNCH, is a 64 F who presents to the office today for follow-up on constipation and new complaints of blood during BM. Pt reports urgency for BM that started yesterday morning, barely making it; describes seeing large blood clots and very little stool in toilet. States that the hematochezia continued throughout day with lessening urgency but increasing cramping and pressure to right upper and lower side of abdomen. States that applying manual pressure to right side relieved some of the pain, no rebound tenderness, no bleeding or bruising around abdomen. States she passes gas and will leak blood from her rectum. She reports being an easy bruiser due to clopidogrel and aspirin daily for CAD s/p PCI, HLD, HTN, AV valve disease. She denies nausea, difficulty swallowing, heartburn, constipation, fever, chills. 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 Reports daily BM with complete evacuation prior to this bleeding episode by increasing fiber and fluid intake. ROS Const Constitutional: Positive for fatigue and decreased energy; No fever(s), weight change or abnormal sleep pattern Eyes Eyes: No change in vision ENT ENT: No abnormal hearing or difficulty swallowing Resp Respiratory: No cough Gastro GI: Positive for abdominal pain, bloating, change in bowel habits, excessive flatus, incontinent of stools and Blood in stool; No belching, change in stool character, coffee ground emesis, constipation, cramping, diarrhea, heartburn, difficulty swallowing, feeling full early, Vomiting blood/hematemesis, loose stools, Black,tarry stools, nausea/dyspepsia, pain with swallowing, vomiting or other Genitourinary-Female: No difficulty urinating Musc Musculoskeletal: Positive for restless legs; No joint pain Skin Skin: No yellowing of the eye or itchy eyes Neuro Neurology: Positive for restless legs; No abnormal hearing Psych Psychiatric: No abnormal sleep pattern, Positive for anxiety and No depressi (more content not included)... Normal [facility] Ironon 05-09-2024 Iron [Mass/Vol] 122 ug/dL Normal 50-170 [facility] Comment on above: Order Comment: 1 Performed By: #### L 503.6550, L500.4050, L100.9950, L3410.2400, L100.0100, L503.6075, L503.6150, L504.2610, L3100.1850, L3100.3425 #### [facility] [address] [place], [address] Iron Binding Capacity,Totalo n 05-09-2024 TIBC 295 ug/dL Normal 250-450 [facility] Comment on above: Order Comment: 1 Performed By: #### L 503.6550, L500.4050, L100.9950, L3410.2400, L100.0100, L503.6075, L503.6150, L504.2610, L3100.1850, L3100.3425 #### [facility] [address] [place], [address] LDHon 05-09-2024 LDH 161 U/L Normal 84-246 [facility] Comment on above: Order Comment: 1 Performed By: #### L 503.6550, L500.4050, L100.9950, L3410.2400, L100.0100, L503.6075, L503.6150, L504.2610, L3100.1850, L3100.3425 #### [facility] [address] [place], [address] Retic Panelon 05-09-2024 IM RET FRACTION 7.30 Normal 3.00-15.90 [facility] Comment on above: Performed By: #### L 503.6550, L500.4050, L100.9950, L3410.2400, L100.0100, L503.6075, L503.6150, L504.2610, L3100.1850, L3100.3425 #### [facility] [address] [place], [place], [address] RET-HE 33.7 pg Normal 30-35 [facility] Comment on above: Performed By: #### L 503.6550, L500.4050, L100.9950, L3410.2400, L100.0100, L503.6075, L503.6150, L504.2610, L3100.1850, L3100.3425 #### [facility] [address] [place], [address] Retic Count 2.18 High 0.5-1.5 [facility] Comment on above: Performed By: #### L 503.6550, L500.4050, L100.9950, L3410.2400, L100.0100, L503.6075, L503.6150, L504.2610, L3100.1850, L3100.3425 #### [facility] [address] [place], [address] Basic Metabolic Profile (BMP )on 03-29-2024 BUN/CRE 22.3 RATIO High 10-20 [facility] Comment on above: Performed By: #### L 500.2500 #### [facility] [address] [place], [address] CA,Total 9.4 mg/dL Normal 8.5-10.1 [facility] Comment on above: Performed By: #### L 500.2500 #### [facility] [address] [place], [address] Chloride [Moles/Vol] 107 mmol/L Normal 98-107 [facility] Comment on above: Performed By: #### L 500.2500 #### [facility] [address] [place], [address] CO2 [Moles/Vol] 28.0 mmol/L Normal 21.0-32.0 [facility] Comment on above: Performed By: #### L 500.2500 #### [facility] [address] [place], [address] Creatinine [Mass/Vol] 0.67 mg/dL Normal 0.55-1.02 [facility] Comment on above: Result Comment: The validity of the calculated GFR GFRAA in patients over 70 years has not been determined. Clinical correlation is essential. Performed By: #### L 500.2500 #### [facility] [address] [place], [address] EST GFR - AA 113 mL/min Normal >60 [facility] Comment on above: Result Comment: Afri can Estonian GFR Calc Performed By: #### L 500.2500 #### [facility] [address] [place], [address] GAP 2 Low 5-15 [facility] Comment on above: Performed By: #### L 500.2500 #### [facility] [address] [place], [address] GFR/1.73 sq M.predicted among non-blacks MDRD (S/P/Bld) [Vol rate/Area] 93 mL/min/{1.73_m2} Normal >60 [facility] Comment on above: Result Comment: Non- GFR Calc Performed By: #### L 500.2500 #### [facility] [address] [place], [address] Glucose [Mass/Vol] 108 mg/dL High 74-106 [facility] Comment on above: Result Comment: Fast ing Glucose result from 100 to 125 mg/dL suggests IMPAIRED HOMEOSTASIS per A.D.A. criteria. Performed By: #### L 500.2500 #### [facility] [address] [place], [address] Potassium [Moles/Vol] 4.1 mmol/L Normal 3.5-5.1 [facility] Comment on above: Performed By: #### L 500.2500 #### [facility] [address] [place], [address] Sodium [Moles/Vol] 137 mmol/L Normal 136-145 [facility] Comment on above: Performed By: #### L 500.2500 #### [facility] [address] [place], [address] Urea nitrogen [Mass/Vol] 15 mg/dL Normal 7-18 [facility] Comment on above: Performed By: #### L 500.2500 #### [facility] [address] [place], [address] CNCOon 01-29-2024 CNCO Letter Text Normal [facility] CT Chest for screening WO co ntraston 01-25-2024 IMPRESSION: LungRADS category: 2 S LungRADS modifier: Significant other (S), coronary artery calcification, moderate or severe LungRADS 0 reason: n/a Recommendations: Continue annual screening with LDCT in 12 months. Other actionable findings: ====== Reference: [employer]. Lung CT Screening Reporting and Data System (Lung-RADS). Available at: http://www.acr.org/Qual ity-Safety/Resources/Paulette ngRADS Information Systems Security Officer: SIL Transcribe Date/Time: Jan 25 2024 5:35A Dictated by : ALVIN TAPIA MD This examination was interpreted and the report reviewed and electronically signed by: ALVIN TAPIA MD on Jan 25 2024 5:52AM [facility] DIVISION OF RADIOLOGY * * *Final Report* * * DATE OF EXAM: Jan 24 2024 1:22PM [facility] 0562 - CT LUNG SCREEN WO IVCON / PROCEDURE REASON: Tobacco use current * * * * Physician Interpretation * * * * EXAMINATION: CHEST CT WITHOUT CONTRAST (LOW-DOSE CT LUNG CANCER SCREENING PROTOCOL) CLINICAL HISTORY: Lung cancer LDCT screening ? absence of signs or symptoms of lung cancer. Nicotine dependence (cigarettes). Baseline (initial) Technique: Spiral CT acquisition of the chest from the thoracic inlet to the upper abdomen without contrast. MQ: CTLCS_6 Patient characteristics: * Ebkx-ro-Satqd: 1960; Age at exam: 63 years * Gender: Female * Lung Disease: Asymptomatic (no signs or symptoms of lung disease) * Number of Pack Years: 50 * Current smoker (=0) or Number of Years since Quit: 0 * Ordering provider and NPI: TINY CALDERON [id number] * Interpreting radiologist and NPI: Abdominal CT dated 05/21/2012 Exam acquisition parameters: * Exam Date: 01/24/2024 1:22 PM * Site: [facility] * * CT System Manager Monitoring: Nubisio * CT System Model: Sensation * Tube Current-Time (mA-sec): 18 * Peak Voltage (kV): 120V * Scan Time (sec): 11.13 * Scan Volume (z-length, cm): -29.65 * Pitch: 0.75 * Slice Thickness (mm): 1.5 * CT Dose-Length Product: 68 mGy*cm * CT Dose Index: 1.43mGy * CT Dose Reduction Method: Automated exposure control(AEC) and iterative recon COMPARISON: Abdominal CT dated 05/21/2012 RESULT: Are nodules present? Yes, 6 or more nodules Nodule 1: This Solid nodule is located in the Left Upper Lobe on slice number 194 with an average diameter of 4.0 mm (4.7 mm x 3.3 mm). Unchanged since the prior abdominal CT dated 05/21/2012. Nodule 2: This Solid nodule is located in the Right Upper Lobe on slice number 53 with an average diameter of 2.5 mm (2.9 mm x 2.0 mm). Nodule 3: This Calcified nodule is located in the Left Upper Lobe on slice number 131 with an average diameter of 2.3 mm (2.6 mm x 2.0 mm). This calcified nodule is consistent with a granuloma. Nodule 4: This Calcified nodule is located in the Right Lower Lobe on slice number 176 with an average diameter of 1.1 mm (1.5 mm x 0.6 mm). This calcified nodule is consistent with a granuloma. Other lung nodule comments: A few additional calcified pulmonary nodules are consistent with granulomas. Other findings: There is mild upper lobe predominant centrilobular and paraseptal emphysema which is associated with bronchial wall thickening. Mild dependent atelectasis is present at the lung bases. No enlarged thoracic lymph nodes. Mild to moderate atherosclerosis is present within the thoracic aorta which is nondilated measuring 3.6 cm in the mid ascending segment. There are moderate severity coronary artery atherosclerotic calcifications, however, this exam is not optimized for coronary artery assessment. The left atrium is borderline enlarged. There is mild to moderate calcification of the aortic valve, a finding associated with aortic stenosis. No abnormality identified within the imaged solid abdominal organs on this noncontrast exam. Mild atherosclerosis is present in the proximal abdominal aorta. There is partially imaged anterior lower cervical spine instrumentation. Suture anchors are noted in the right scapula. Multilevel endplate degenerative changes are present throughout the imaged spine. No destructive lytic or blastic bone lesion. Emphysema: Mild (5-25%), Centrilobular and paraseptal, Upper lobe Coronary Artery Calcifications: Circumflex Moderate; Left Anterior Descending Moderate; Right Coronary Moderate Localizer images: There is a partially imaged left hip arthroplasty. DIVISION OF RADIOLOGY Provider, [facility] - 01/25/2024 * * *Final Report* * * DATE OF EXAM: Jan 24 2024 1:22PM [facility] 0562 - CT LUNG SCREEN WO [facility] / PROCEDURE REASON: Tobacco use current * * * * Physician Interpretation * * * * EXAMINATION: CHEST CT WITHOUT CONTRAST (LOW-DOSE CT LUNG CANCER SCREENING PROTOCOL) CLINICAL HISTORY: Lung cancer LDCT screening ? absence of signs or symptoms of lung cancer. Nicotine dependence (cigarettes). Baseline (initial) Technique: Spiral CT acquisition of the chest from the thoracic inlet to the upper abdomen without contrast. MQ: CTLCS_6 Patient characteristics: * Ncal-nl-Kvbiu: 1960; Age at exam: 63 years * Gender: Female * Lung Disease: Asymptomatic (no signs or symptoms of lung disease) * Number of Pack Years: 50 * Current smoker (=0) or Number of Years since Quit: 0 * Ordering provider and NPI: TINY CALDERON [id number] * Interpreting radiologist and NPI: Abdominal CT dated 05/21/2012 Exam acquisition parameters: * Exam Date: 01/24/2024 1:22 PM * Site: [facility] * * CT System Manager Monitoring: Nubisio * CT System Model: Sensation * Tube Current-Time (mA-sec): 18 * Peak Voltage (kV): 120V * Scan Time (sec): 11.13 * Scan Volume (z-length, cm): -29.65 * Pitch: 0.75 * Slice Thickness (mm): 1.5 * CT Dose-Length Product: 68 mGy*cm * CT Dose Index: 1.43mGy * CT Dose Reduction Method: Automated exposure control(AEC) and iterative recon COMPARISON: Abdominal CT dated 05/21/2012 RESULT: Are nodules present? Yes, 6 or more nodules Nodule 1: This Solid nodule is located in the Left Upper Lobe on slice number 194 with an average diameter of 4.0 mm (4.7 mm x 3.3 mm). Unchanged since the prior abdominal CT dated 05/21/2012. Nodule 2: This Solid nodule is located in the Right Upper Lobe on slice number 53 with an average diameter of 2.5 mm (2.9 mm x 2.0 mm). Nodule 3: This Calcified nodule is located in the Left Upper Lobe on slice number 131 with an average diameter of 2.3 mm (2.6 mm x 2.0 mm). This calcified nodule is consistent with a granuloma. Nodule 4: This Calcified nodule is located in the Right Lower Lobe on slice number 176 with an average diameter of 1.1 mm (1.5 mm x 0.6 mm). This calcified nodule is consistent with a granuloma. Other lung nodule comments: A few additional calcified pulmonary nodules are consistent with granulomas. Other findings: There is mild upper lobe predominant centrilobular and paraseptal emphysema which is associated with bronchial wall thickening. Mild dependent atelectasis is present at the lung bases. No enlarged thoracic lymph nodes. Mild to moderate atherosclerosis is present within the thoracic aorta which is nondilated measuring 3.6 cm in the mid ascending segment. There are moderate severity coronary artery atherosclerotic calcifications, however, this exam is not optimized for coronary artery assessment. The left atrium is borderline enlarged. There is mild to moderate calcification of the aortic valve, a finding associated with aortic stenosis. No abnormality identified within the imaged solid abdominal organs on this noncontrast exam. Mild atherosclerosis is present in the proximal abdominal aorta. There is partially imaged anterior lower cervical spine instrumentation. Suture anchors are noted in the right scapula. Multilevel endplate degenerative changes are present throughout the imaged spine. No destructive lytic or blastic bone lesion. Emphysema: Mild (5-25%), Centrilobular and paraseptal, Upper lobe Coronary Artery Calcifications: Circumflex Moderate; Left Anterior Descending Moderate; Right Coronary Moderate Localizer images: There is a partially imaged left hip arthroplasty. IMPRESSION IMPRESSION: LungRADS category: 2 S LungRADS modifier: Significant other (S), coronary artery calcification, moderate or severe LungRADS 0 reason: n/a Recommendations: Continue annual screening with LDCT in 12 months. Other actionable findings: ====== Reference: [employer]. Lung CT Screening Reporting and Data System (Lung-RADS). Available at: http://www.acr.org/Qual ity-Safety/Resources/Paulette ngRADS Information Systems Security Officer: PSCB Transcribe Date/Time: Jan 25 2024 5:35A Dictated by : ALVIN TAPIA MD This examination was interpreted and the report reviewed and electronically signed by: ALVIN TAPIA MD on Jan 25 2024 5:52AM EST [facility] CT Chest for screening WO co ntrastOrdered By: [facility] Provider on 01-25-[address] [facility] [address] Chest for screening WO co ntraston 01-24-2024 Radiology Study observation (narrative) [facility] CT LUNG SCREEN WO IVCONon CT LUNG SCREEN WO IVCON * * *Final Report* * * DATE OF EXAM: Jan 24 2024 1:22PM [facility] 0562 - CT LUNG SCREEN WO IVCON / PROCEDURE REASON: Tobacco use current * * * * Physician Interpretation * * * * EXAMINATION: CHEST CT WITHOUT CONTRAST (LOW-DOSE CT LUNG CANCER SCREENING PROTOCOL) CLINICAL HISTORY: Lung cancer LDCT screening ? absence of signs or symptoms of lung cancer. Nicotine dependence (cigarettes). Baseline (initial) Technique: Spiral CT acquisition of the chest from the thoracic inlet to the upper abdomen without contrast. MQ: CTLCS_6 Patient characteristics: * Xski-la-Qbhpo: 1960; Age at exam: 63 years * Gender: Female * Lung Disease: Asymptomatic (no signs or symptoms of lung disease) * Number of Pack Years: 50 * Current smoker (=0) or Number of Years since Quit: 0 * Ordering provider and NPI: TINY CALDERON [id number] * Interpreting radiologist and NPI: Abdominal CT dated 05/21/2012 Exam acquisition parameters: * Exam Date: 01/24/2024 1:22 PM * Site: [facility] * * CT System Manager Monitoring: Siemens * CT System Model: Sensation * Tube Current-Time (mA-sec): 18 * Peak Voltage (kV): 120V * Scan Time (sec): 11.13 * Scan Volume (z-length, cm): -29.65 * Pitch: 0.75 * Slice Thickness (mm): 1.5 * CT Dose-Length Product: 68 mGy*cm * CT Dose Index: 1.43mGy * CT Dose Reduction Method: Automated exposure control(AEC) and iterative recon COMPARISON: Abdominal CT dated 05/21/2012 RESULT: Are nodules present? Yes, 6 or more nodules Nodule 1: This Solid nodule is located in the Left Upper Lobe on slice number 194 with an average diameter of 4.0 mm (4.7 mm x 3.3 mm). Unchanged since the prior abdominal CT dated 05/21/2012. Nodule 2: This Solid nodule is located in the Right Upper Lobe on slice number 53 with an average diameter of 2.5 mm (2.9 mm x 2.0 mm). Nodule 3: This Calcified nodule is located in the Left Upper Lobe on slice number 131 with an average diameter of 2.3 mm (2.6 mm x 2.0 mm). This calcified nodule is consistent with a granuloma. Nodule 4: This Calcified nodule is located in the Right Lower Lobe on slice number 176 with an average diameter of 1.1 mm (1.5 mm x 0.6 mm). This calcified nodule is consistent with a granuloma. Other lung nodule comments: A few additional calcified pulmonary nodules are consistent with granulomas. Other findings: There is mild upper lobe predominant centrilobular and paraseptal emphysema which is associated with bronchial wall thickening. Mild dependent atelectasis is present at the lung bases. No enlarged thoracic lymph nodes. Mild to moderate atherosclerosis is present within the thoracic aorta which is nondilated measuring 3.6 cm in the mid ascending segment. There are moderate severity coronary artery atherosclerotic calcifications, however, this exam is not optimized for coronary artery assessment. The left atrium is borderline enlarged. There is mild to moderate calcification of the aortic valve, a finding associated with aortic stenosis. No abnormality identified within the imaged solid abdominal organs on this noncontrast exam. Mild atherosclerosis is present in the proximal abdominal aorta. There is partially imaged anterior lower cervical spine instrumentation. Suture anchors are noted in the right scapula. Multilevel endplate degenerative changes are present throughout the imaged spine. No destructive lytic or blastic bone lesion. Emphysema: Mild (5-25%), Centrilobular and paraseptal, Upper lobe Coronary Artery Calcifications: Circumflex Moderate; Left Anterior Descending Moderate; Right Coronary Moderate Localizer images: There is a partially imaged left hip arthroplasty. IMPRESSION: LungRADS category: 2 S LungRADS modifier: Significant other (S), coronary artery calcification, moderate or severe LungRADS 0 reason: n/a Recommendations: Continue annual screening with LDCT in 12 months. Other actionable findings: ====== Reference: [employer]. Lung CT Screening Reporting and Data System (Lung-RADS). Available at: http://www.acr.org/Qual ity-Safety/Resources/Paulette ngRADS Information Systems Security Officer: SIL Transcribe Date/Time: Jan 25 2024 5:35A Dictated by : ALVIN TAPIA MD This examination was interpreted and the report reviewed and electronically signed by: ALVIN TAPIA MD on Jan 25 2024 5:52AM EST [id number] Normal [facility] BD DXA - AXIAL SKELETONon BD DXA - AXIAL SKELETON * * *Final Report* * * DATE OF EXAM: Jan 14 2024 10:30AM [facility] 0804 - BD DXA - AXIAL SKELETON / PROCEDURE REASON: multiple diagnoses * * * * Physician Interpretation * * * * EXAMINATION: DXA BONE DENSITOMETRY BD DXA - AXIAL SKELETON, BD DXA TRABECLR BONE SCORE (TBS) PATIENT DEMOGRAPHICS: Age: 63 years, Gender: Female SCANNER INFORMATION: DXA Model: Minutizer - [employer]ocket[employer] C [id number] Date Scanned: 01/14/2024 10:30 AM CLINICAL HISTORY: DIAGNOSTIC Screening for osteoporosis Asymptomatic menopause . RISK FACTORS FOR OSTEOPOROSIS AND ASSOCIATED FRACTURES REPORTED BY THIS PATIENT: Please refer to Bone Health Questionnaire in the EMR CURRENT THERAPY: Please refer to Bone Health Questionnaire in the EMR TECHNICAL LIMITATIONS: left hip fracture/surgery RESULTS: Lumbar spine (L1, L2, L3, L4): 0.818 g/cm2, T-score -2.1, Z-score -0.3 Lumbar spine: 2014: 0.919 g/cm2 There has been an 11% interval decrease in bone mineral density. Right Femoral Neck: 0.576 g/cm2, T-score -2.5, Z-score -0.9 Right Total Hip: 0.653 g/cm2, T-score -2.4, Z-score -1.1 CHANGE IS STATISTICALLY SIGNIFICANT IN THE SPINE OR HIP IF GREATER THAN OR EQUAL TO 0.04 g/cm2 VERTEBRAL FRACTURE ASSESSMENT Not performed. TRABECULAR BONE ASSESSMENT TBS score: 1.194 Bone micro-architecture: Degraded (< or = 1.230) IMPRESSION: THE LOWEST T-SCORE IS -2.5 IN THE RIGHT HIP 1) DIAGNOSIS (based on BMD alone): OSTEOPOROSIS Caution: Medical conditions other than osteoporosis may cause low bone density, such as osteomalacia or renal osteodystrophy. Clinical correlation is necessary. 2) FRACTURE RISK (Based on TBS adjusted FRAX): 10-year absolute fracture risk: - major osteoporotic fracture = 24 % - hip fracture = 8.1 % - A diagnosis of Osteoporosis, a 10 year probability of hip fracture greater than or equal to 3% or a 10 year probability of any major osteoporosis-related fracture greater than or equal to 20% should be considered for treatment. - DXA scanner generated FRAX calculations may slightly differ from online FRAX calculations due to differences in software versions. - All recommendations and calculations are to be considered as guidelines and should not replace sound clinical judgement - Caution: Fracture risk may be increased independent of BMD in patients with corticosteroid use, age greater than 65 years, or a history of prior fragility fracture. RECOMMENDATIONS: Follow-up in 2 years or as clinically indicated. Patients that are taking corticosteroids, are transplant recipients or have hyperparathyroidism should have annual follow-up. Follow-up scans should always be done on the same machine for accurate comparison. FOR MORE INFORMATION ABOUT DIAGNOSIS AND TREATMENT: [facility] [place] Center for Osteoporosis and Metabolic Bone Disease:? [email or web address]/arthritis/o steo National Osteoporosis Foundation:? www.nof.org International Society of Clinical Densitometry www.iscd.org Information Systems Security Officer: SIL Transcribe Date/Time: Jan 14 2024 3:13P Dictated by : WILFREDO LOMAS MD This examination was interpreted and the report reviewed and electronically signed by: WILFREDO LOMAS MD on Jan 14 2024 3:15PM EST [id number] -2.[address] [facility] BD DXA TRABECLR BONE SCORE ( TBS)on 01-14-2024 BD DXA TRABECLR BONE SCORE (TBS) * * *Final Report* * * DATE OF EXAM: Jan 14 2024 10:30AM WRB 0801 - BD DXA TRABECLR BONE SCORE (TBS) / PROCEDURE REASON: multiple diagnoses * * * * Physician Interpretation * * * * EXAMINATION: DXA BONE DENSITOMETRY BD DXA - AXIAL SKELETON, BD DXA TRABECLR BONE SCORE (TBS) PATIENT DEMOGRAPHICS: Age: 63 years, Gender: Female SCANNER INFORMATION: DXA Model: Minutizer - [employer]ocket[employer] C [id number] Date Scanned: 01/14/2024 10:30 AM CLINICAL HISTORY: DIAGNOSTIC Screening for osteoporosis Asymptomatic menopause . RISK FACTORS FOR OSTEOPOROSIS AND ASSOCIATED FRACTURES REPORTED BY THIS PATIENT: Please refer to Bone Health Questionnaire in the EMR CURRENT THERAPY: Please refer to Bone Health Questionnaire in the EMR TECHNICAL LIMITATIONS: left hip fracture/surgery RESULTS: Lumbar spine (L1, L2, L3, L4): 0.818 g/cm2, T-score -2.1, Z-score -0.3 Lumbar spine: 2014: 0.919 g/cm2 There has been an 11% interval decrease in bone mineral density. Right Femoral Neck: 0.576 g/cm2, T-score -2.5, Z-score -0.9 Right Total Hip: 0.653 g/cm2, T-score -2.4, Z-score -1.1 CHANGE IS STATISTICALLY SIGNIFICANT IN THE SPINE OR HIP IF GREATER THAN OR EQUAL TO 0.04 g/cm2 VERTEBRAL FRACTURE ASSESSMENT Not performed. TRABECULAR BONE ASSESSMENT TBS score: 1.194 Bone micro-architecture: Degraded (< or = 1.230) IMPRESSION: THE LOWEST T-SCORE IS -2.5 IN THE RIGHT HIP 1) DIAGNOSIS (based on BMD alone): OSTEOPOROSIS Caution: Medical conditions other than osteoporosis may cause low bone density, such as osteomalacia or renal osteodystrophy. Clinical correlation is necessary. 2) FRACTURE RISK (Based on TBS adjusted FRAX): 10-year absolute fracture risk: - major osteoporotic fracture = 24 % - hip fracture = 8.1 % - A diagnosis of Osteoporosis, a 10 year probability of hip fracture greater than or equal to 3% or a 10 year probability of any major osteoporosis-related fracture greater than or equal to 20% should be considered for treatment. - DXA scanner generated FRAX calculations may slightly differ from online FRAX calculations due to differences in software versions. - All recommendations and calculations are to be considered as guidelines and should not replace sound clinical judgement - Caution: Fracture risk may be increased independent of BMD in patients with corticosteroid use, age greater than 65 years, or a history of prior fragility fracture. RECOMMENDATIONS: Follow-up in 2 years or as clinically indicated. Patients that are taking corticosteroids, are transplant recipients or have hyperparathyroidism should have annual follow-up. Follow-up scans should always be done on the same machine for accurate comparison. FOR MORE INFORMATION ABOUT DIAGNOSIS AND TREATMENT: [facility] Center for Osteoporosis and Metabolic Bone Disease:? [email or web address]/arthritis/o steo National Osteoporosis Foundation:? www.nof.org International Society of Clinical Densitometry www.iscd.org Information Systems Security Officer: SIL Transcribe Date/Time: Jan 14 2024 3:13P Dictated by : WILFREDO LOMAS MD This examination was interpreted and the report reviewed and electronically signed by: WILFREDO LOMAS MD on Jan 14 2024 3:15PM EST [id number] -2.[address] [facility] CNOVon 01-14-2024 CNOV Office Visit (PULMWS ) NAHEED LYNCH ([id number]) 1960 F Date Time Provider Department 01/14/24 9:00 AM TINY CALDERON PULSrideviWS During your visit today, we recorded the following information about you: Pulse Respiration Blood pressure Weight 53/minute 14/minute 130/78 68 kg Tiny Calderon APRN.CNP 01/14/2024 9:21 AM Signed LUNG SCREENING VISIT PRIMARY CARE PHYSICIAN: Shira Bullard MD PULMONARY PROVIDER: none Results will be communicated via letter or electronic record if applicable. Visit Delivery: In Person Patient Visit Type: New to Screening Current or Ex-smoker? [Current Exam Type: baseline LDCT Number of Pack Years: 50 Current smoker (=0) REQUESTER: The referring provider advised the patient to have screening. HISTORY OF PRESENT ILLNESS: Naheed Lynch is a 63 year old Active smoker who presents for lung screening. Currently smoking about 1 PPD. Quit for a couple of weeks. Heart stent left circumflex artery follows with [facility], seen within the last year. Respiratory symptoms include: SOB: No Chest tightness: No Coughing: No Hemoptysis: No Wheezing: No Fever/Chills: No Recent Respiratory Infection: No Unintentional weight loss: No Last 6 Encounter Wt Readings: Date: Wt: 01/14/2024 68 kg (150 lb) 01/07/2024 68.5 kg (151 lb) 12/10/2023 68.5 kg (151 lb) 09/10/2023 66.7 kg (147 lb) 08/10/2023 66.7 kg (147 lb) 07/11/2023 65.3 kg (144 lb) ECOG PERFORMANCE STATUS: 0- Fully active, able to carry on all pre-disease performance w/o restriction. Modified Medical [employer] [place] Dyspnea Scale (MMRC) I only get breathless with strenous exercise 0 PAST MEDICAL HISTORY Diagnosis Date Bilateral optic neuritis Chronic interstitial cystitis Coronary artery disease 2007 one stent placed Dyspareunia Irritable bowel syndrome Mental disorder Other disorder of menstruation and other abnormal bleeding from female genital tract Unspecified essential hypertension Essential hypertension Uterovaginal prolapse, complete PAST SURGICAL HISTORY Procedure Laterality Date COLONOSCOPY FLX DX W/COLLJ SPEC WHEN PFRMD 08/23/2018 Colonoscopy ESOPHAGOGASTRODUODENOSC OPY TRANSORAL DIAGNOSTIC 04/25/2019 EGD HEART CATHETERIZATION stent HEART SURGERY HX LIG/TRNSXJ FLP TUBE ABDL/VAG APPR UNI/BI Tubal ligation PAST SURGICAL HISTORY OF 06/07/2006 right shoulder arthroscopy (biceps tenodesis and SLAP repair) PAST SURGICAL HISTORY OF 09/07/2011 neck surgery plate put in C 5-7 TONSILLECTOMY PRIMARY/SECONDARY Tonsillectomy VAGINAL HYSTERECTOMY UTERUS 250 GM/< Hysterectomy, vaginal FAMILY HISTORY Problem Relation Age of Onset Heart Mother MD Coronary Artery Disease Mother Heart Father MD Coronary Artery Disease Father Heart Maternal Grandmother MD Heart Paternal Grandmother MD Breast Cancer Paternal Grandmother sinus cancer Heart Paternal Grandfather MD Hypertension Brother Ischemic Heart Disease Brother age 42 MD, etoh, tob and drug use Multiple Sclerosis No Family History Coronary Artery Disease Brother hydrOXYzine HCl (ATARAX) 25 mg tablet take 1 tablet by mouth three times a day as needed for anxiety MAGNESIUM ORAL Take by mouth. amLODIPine (NORVASC) 10 mg tablet Take 1 tablet by mouth once daily. escitalopram oxalate (LEXAPRO) 20 mg tablet Take 1 tablet by mouth once daily. Appointment needed for further refills. ramipril (ALTACE) 10 mg capsule Take 2 capsules by mouth once daily. albuterol HFA (PROVENTIL HFA, VENTOLIN HFA) 90 mcg/actuation inhaler INHALE 2 PUFFS INSTRUCTED EVERY 4 HOURS NEEDED FOR WHEEZING/SHORTNESS OF BREATH. (Patient not taking: Reported on 01/07/2024) Cholecalciferol, Vitamin D3, 25 mcg (1,000 unit) cap Take 1 capsule by mouth once daily. atorvastatin (LIPITOR) 80 mg tablet Take 80 mg by mouth once daily. clopidogrel (PLAVIX) 75 mg tablet Take 75 mg by mouth once daily. aspirin(ADULT LOW DOSE ASPIRIN 81 MG TAB, DELAYED RELEASE) Take one(1) tablet daily. ALLERGIES Allergen Reactions Codeine GI Upset Ultracet [Tramadol-* GI Upset The medications and allergies were reviewed and reconciled for this patient and deemed current. Lung Cancer Risk Factors: 1.Tobacco Use: Start Age 14, Quit Age: N/A, Average packs per day 1, Pack Years 50 2. Passive Smoke Exposure: Yes, as a Child and as an Adult 3. Personal hx of malignancy: No, Type of Cancer: 4. Significant exposures (1 year or more of exposure): Other, [place] brush-adhesive 5. Race: White 6. Education: Less than High School 7. BMI:Body mass index is 23.15 kg/m?. Patient-entered Height: 5'7 Patient-entered Weight: 150 pounds 8. COPD: No 9. Pneumonia in the past 5 years: No 10. Is there a history of lung cancer in a first degree relative? No 11. Is there a history of lung cancer in a non-first degree rela (more content not included)... [facility]INTM[facility] NAHEED LYNCH ([id number]) 1960 F Date Time Provider Department 01/14/24 USHA GOMES During your visit today, we recorded the following information about you: Usha Gomes APRN.CNP 01/14/2024 4:10 PM Signed Bone density test is showing osteoporosis. She needs an appointment to discuss treatment options like fosamax. Continue Vitamin D Supplement. Calcium is best absorbed from your diet. Green vegetables and low fat dairy are good dietary sources of calcium. Walking, weight bearing exercise, resistance training , limiting alcohol and not smoking are also good ways to help maintain your bone mass. We will repeat the bone density in two years. If you add a calcium supplement you will not absorb more than 600 mg at a time so split the dosing . Thank you Usha Gomes APRN.Brooke Rajan RN 01/14/2024 4:52 PM Signed Patient calls and notified of results and providers instructions. Patient verbalizes understanding. Patient will increase dietary calcium and add a calcium supplement splitting up as recommended. Patient reports she will discuss additional treatment at appointment with provider in June. Brooke Yao RN Allergies As of Date: 01/14/2024 Noted Allergy Reaction CODEINE 07/07/2005 8 - GI Upset ULTRACET (TRAMADOL-ACETAMINOPHEN ) 10/09/2005 8 - GI Upset Date Reviewed: 01/14/2024 Reviewed by: Tiny Calderon APRN.CNP - Fully Assessed Reason for Visit: Results [95] Prescriptions as of 01/14/2024 - hydrOXYzine HCl (ATARAX) 25 mg tablet take 1 tablet by mouth three times a day as needed for anxiety - MAGNESIUM ORAL Take by mouth. - amLODIPine (NORVASC) 10 mg tablet Take 1 tablet by mouth once daily. - escitalopram oxalate (LEXAPRO) 20 mg tablet Take 1 tablet by mouth once daily. Appointment needed for further refills. - ramipril (ALTACE) 10 mg capsule Take 2 capsules by mouth once daily. - albuterol HFA (PROVENTIL HFA, VENTOLIN HFA) 90 mcg/actuation inhaler INHALE 2 PUFFS INSTRUCTED EVERY 4 HOURS NEEDED FOR WHEEZING/SHORTNESS OF BREATH. - Cholecalciferol, Vitamin D3, 25 mcg (1,000 unit) cap Take 1 capsule by mouth once daily. - atorvastatin (LIPITOR) 80 mg tablet Take 80 mg by mouth once daily. - clopidogrel (PLAVIX) 75 mg tablet Take 75 mg by mouth once daily. - aspirin(ADULT LOW DOSE ASPIRIN 81 MG TAB, DELAYED RELEASE) Take one(1) tablet daily. 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 DXA Femur [T-score] Wes rafael erazo 01-14-2024 * * *Final Report* * * DATE OF EXAM: Jan 14 2024 10:30AM WRB 0801 - BD DXA TRABECLR BONE SCORE (TBS) / PROCEDURE REASON: multiple diagnoses * * * * Physician Interpretation * * * * EXAMINATION: DXA BONE DENSITOMETRY BD DXA - AXIAL SKELETON, BD DXA TRABECLR BONE SCORE (TBS) PATIENT DEMOGRAPHICS: Age: 63 years, Gender: Female SCANNER INFORMATION: DXA Model: Minutizer - [employer] C [id number] Date Scanned: 01/14/2024 10:30 AM CLINICAL HISTORY: DIAGNOSTIC Screening for osteoporosis Asymptomatic menopause . RISK FACTORS FOR OSTEOPOROSIS AND ASSOCIATED FRACTURES REPORTED BY THIS PATIENT: Please refer to Bone Health Questionnaire in the EMR CURRENT THERAPY: Please refer to Bone Health Questionnaire in the EMR TECHNICAL LIMITATIONS: left hip fracture/surgery RESULTS: Lumbar spine (L1, L2, L3, L4): 0.818 g/cm2, T-score -2.1, Z-score -0.3 Lumbar spine: 2014: 0.919 g/cm2 There has been an 11% interval decrease in bone mineral density. Right Femoral Neck: 0.576 g/cm2, T-score -2.5, Z-score -0.9 Right Total Hip: 0.653 g/cm2, T-score -2.4, Z-score -1.1 CHANGE IS STATISTICALLY SIGNIFICANT IN THE SPINE OR HIP IF GREATER THAN OR EQUAL TO 0.04 g/cm2 VERTEBRAL FRACTURE ASSESSMENT Not performed. TRABECULAR BONE ASSESSMENT TBS score: 1.194 Bone micro-architecture: Degraded (< or = 1.230) DIVISION OF RADIOLOGY Provider, [facility] - 01/14/2024 * * *Final Report* * * DATE OF EXAM: Jan 14 2024 10:30AM [facility] 0801 - BD DXA TRABECLR BONE SCORE (TBS) / PROCEDURE REASON: multiple diagnoses * * * * Physician Interpretation * * * * EXAMINATION: DXA BONE DENSITOMETRY BD DXA - AXIAL SKELETON, BD DXA TRABECLR BONE SCORE (TBS) PATIENT DEMOGRAPHICS: Age: 63 years, Gender: Female SCANNER INFORMATION: DXA Model: Minutizer - [employer] C [id number] Date Scanned: 01/14/2024 10:30 AM CLINICAL HISTORY: DIAGNOSTIC Screening for osteoporosis Asymptomatic menopause . RISK FACTORS FOR OSTEOPOROSIS AND ASSOCIATED FRACTURES REPORTED BY THIS PATIENT: Please refer to Bone Health Questionnaire in the EMR CURRENT THERAPY: Please refer to Bone Health Questionnaire in the EMR TECHNICAL LIMITATIONS: left hip fracture/surgery RESULTS: Lumbar spine (L1, L2, L3, L4): 0.818 g/cm2, T-score -2.1, Z-score -0.3 Lumbar spine: 2014: 0.919 g/cm2 There has been an 11% interval decrease in bone mineral density. Right Femoral Neck: 0.576 g/cm2, T-score -2.5, Z-score -0.9 Right Total Hip: 0.653 g/cm2, T-score -2.4, Z-score -1.1 CHANGE IS STATISTICALLY SIGNIFICANT IN THE SPINE OR HIP IF GREATER THAN OR EQUAL TO 0.04 g/cm2 VERTEBRAL FRACTURE ASSESSMENT Not performed. TRABECULAR BONE ASSESSMENT TBS score: 1.194 Bone micro-architecture: Degraded (< or = 1.230) IMPRESSION IMPRESSION: THE LOWEST T-SCORE IS -2.5 IN THE RIGHT HIP 1) DIAGNOSIS (based on BMD alone): OSTEOPOROSIS Caution: Medical conditions other than osteoporosis may cause low bone density, such as osteomalacia or renal osteodystrophy. Clinical correlation is necessary. 2) FRACTURE RISK (Based on TBS adjusted FRAX): 10-year absolute fracture risk: - major osteoporotic fracture = 24 % - hip fracture = 8.1 % - A diagnosis of Osteoporosis, a 10 year probability of hip fracture greater than or equal to 3% or a 10 year probability of any major osteoporosis-related fracture greater than or equal to 20% should be considered for treatment. - DXA scanner generated FRAX calculations may slightly differ from online FRAX calculations due to differences in software versions. - All recommendations and calculations are to be considered as guidelines and should not replace sound clinical judgement - Caution: Fracture risk may be increased independent of BMD in patients with corticosteroid use, age greater than 65 years, or a history of prior fragility fracture. RECOMMENDATIONS: Follow-up in 2 years or as clinically indicated. Patients that are taking corticosteroids, are transplant recipients or have hyperparathyroidism should have annual follow-up. Follow-up scans should always be done on the same machine for accurate comparison. FOR MORE INFORMATION ABOUT DIAGNOSIS AND TREATMENT: [facility] Center for Osteoporosis and Metabolic Bone Disease:? [email or web address]/arthritis/o steo National Osteoporosis Foundation:? www.nof.org International Society of Clinical Densitometry www.iscd.org Information Systems Security Officer: SIL Transcribe Date/Time: Jan 14 2024 3:13P Dictated by : WILFREDO LOMAS MD This examination was interpreted and the report reviewed and electronically signed by: WILFREDO LOMAS MD on Jan 14 2024 3:15PM [facility] DXA Skeletal system.axial Vi ews for bone densityon 01-14-2024 * * *Final Report* * * DATE OF EXAM: Jan 14 2024 10:30AM [facility] 0804 - BD DXA - AXIAL SKELETON / PROCEDURE REASON: multiple diagnoses * * * * Physician Interpretation * * * * EXAMINATION: DXA BONE DENSITOMETRY BD DXA - AXIAL SKELETON, BD DXA TRABECLR BONE SCORE (TBS) PATIENT DEMOGRAPHICS: Age: 63 years, Gender: Female SCANNER INFORMATION: DXA Model: Minutizer - [employer] C [id number] Date Scanned: 01/14/2024 10:30 AM CLINICAL HISTORY: DIAGNOSTIC Screening for osteoporosis Asymptomatic menopause . RISK FACTORS FOR OSTEOPOROSIS AND ASSOCIATED FRACTURES REPORTED BY THIS PATIENT: Please refer to Bone Health Questionnaire in the EMR CURRENT THERAPY: Please refer to Bone Health Questionnaire in the EMR TECHNICAL LIMITATIONS: left hip fracture/surgery RESULTS: Lumbar spine (L1, L2, L3, L4): 0.818 g/cm2, T-score -2.1, Z-score -0.3 Lumbar spine: 2014: 0.919 g/cm2 There has been an 11% interval decrease in bone mineral density. Right Femoral Neck: 0.576 g/cm2, T-score -2.5, Z-score -0.9 Right Total Hip: 0.653 g/cm2, T-score -2.4, Z-score -1.1 CHANGE IS STATISTICALLY SIGNIFICANT IN THE SPINE OR HIP IF GREATER THAN OR EQUAL TO 0.04 g/cm2 VERTEBRAL FRACTURE ASSESSMENT Not performed. TRABECULAR BONE ASSESSMENT TBS score: 1.194 Bone micro-architecture: Degraded (< or = 1.230) DIVISION OF RADIOLOGY Provider, [facility] - 01/14/2024 * * *Final Report* * * DATE OF EXAM: Jan 14 2024 10:30AM [facility] 0804 - BD DXA - AXIAL SKELETON / PROCEDURE REASON: multiple diagnoses * * * * Physician Interpretation * * * * EXAMINATION: DXA BONE DENSITOMETRY BD DXA - AXIAL SKELETON, BD DXA TRABECLR BONE SCORE (TBS) PATIENT DEMOGRAPHICS: Age: 63 years, Gender: Female SCANNER INFORMATION: DXA Model: Minutizer - [employer] C [id number] Date Scanned: 01/14/2024 10:30 AM CLINICAL HISTORY: DIAGNOSTIC Screening for osteoporosis Asymptomatic menopause . RISK FACTORS FOR OSTEOPOROSIS AND ASSOCIATED FRACTURES REPORTED BY THIS PATIENT: Please refer to Bone Health Questionnaire in the EMR CURRENT THERAPY: Please refer to Bone Health Questionnaire in the EMR TECHNICAL LIMITATIONS: left hip fracture/surgery RESULTS: Lumbar spine (L1, L2, L3, L4): 0.818 g/cm2, T-score -2.1, Z-score -0.3 Lumbar spine: 2014: 0.919 g/cm2 There has been an 11% interval decrease in bone mineral density. Right Femoral Neck: 0.576 g/cm2, T-score -2.5, Z-score -0.9 Right Total Hip: 0.653 g/cm2, T-score -2.4, Z-score -1.1 CHANGE IS STATISTICALLY SIGNIFICANT IN THE SPINE OR HIP IF GREATER THAN OR EQUAL TO 0.04 g/cm2 VERTEBRAL FRACTURE ASSESSMENT Not performed. TRABECULAR BONE ASSESSMENT TBS score: 1.194 Bone micro-architecture: Degraded (< or = 1.230) IMPRESSION IMPRESSION: THE LOWEST T-SCORE IS -2.5 IN THE RIGHT HIP 1) DIAGNOSIS (based on BMD alone): OSTEOPOROSIS Caution: Medical conditions other than osteoporosis may cause low bone density, such as osteomalacia or renal osteodystrophy. Clinical correlation is necessary. 2) FRACTURE RISK (Based on TBS adjusted FRAX): 10-year absolute fracture risk: - major osteoporotic fracture = 24 % - hip fracture = 8.1 % - A diagnosis of Osteoporosis, a 10 year probability of hip fracture greater than or equal to 3% or a 10 year probability of any major osteoporosis-related fracture greater than or equal to 20% should be considered for treatment. - DXA scanner generated FRAX calculations may slightly differ from online FRAX calculations due to differences in software versions. - All recommendations and calculations are to be considered as guidelines and should not replace sound clinical judgement - Caution: Fracture risk may be increased independent of BMD in patients with corticosteroid use, age greater than 65 years, or a history of prior fragility fracture. RECOMMENDATIONS: Follow-up in 2 years or as clinically indicated. Patients that are taking corticosteroids, are transplant recipients or have hyperparathyroidism should have annual follow-up. Follow-up scans should always be done on the same machine for accurate comparison. FOR MORE INFORMATION ABOUT DIAGNOSIS AND TREATMENT: [facility] for Osteoporosis and Metabolic Bone Disease:? [email or web address].org/arthritis/o steo National Osteoporosis Foundation:? www.nof.org International Society of Clinical Densitometry www.iscd.org Information Systems Security Officer: SIL Transcribe Date/Time: Jan 14 2024 3:13P Dictated by : WILFREDO LOMAS MD This examination was interpreted and the report reviewed and electronically signed by: WILFREDO LOMAS MD on Jan 14 2024 3:15PM [facility] No Panel InformationOrdered By: [facility] Provider on 01-14-2024 LOWEST T-SCORE -2.5 [facility] No Panel Informationon 01-13 IMPRESSION: THE LOWEST T-SCORE IS -2.5 IN THE RIGHT HIP 1) DIAGNOSIS (based on BMD alone): OSTEOPOROSIS Caution: Medical conditions other than osteoporosis may cause low bone density, such as osteomalacia or renal osteodystrophy. Clinical correlation is necessary. 2) FRACTURE RISK (Based on TBS adjusted FRAX): 10-year absolute fracture risk: - major osteoporotic fracture = 24 % - hip fracture = 8.1 % - A diagnosis of Osteoporosis, a 10 year probability of hip fracture greater than or equal to 3% or a 10 year probability of any major osteoporosis-related fracture greater than or equal to 20% should be considered for treatment. - DXA scanner generated FRAX calculations may slightly differ from online FRAX calculations due to differences in software versions. - All recommendations and calculations are to be considered as guidelines and should not replace sound clinical judgement - Caution: Fracture risk may be increased independent of BMD in patients with corticosteroid use, age greater than 65 years, or a history of prior fragility fracture. RECOMMENDATIONS: Follow-up in 2 years or as clinically indicated. Patients that are taking corticosteroids, are transplant recipients or have hyperparathyroidism should have annual follow-up. Follow-up scans should always be done on the same machine for accurate comparison. FOR MORE INFORMATION ABOUT DIAGNOSIS AND TREATMENT: [facility] for Osteoporosis and Metabolic Bone Disease:? [email or web address]/arthritis/o steo National Osteoporosis Foundation:? www.nof.org International Society of Clinical Densitometry www.iscd.org Information Systems Security Officer: SIL Transcribe Date/Time: Jan 14 2024 3:13P Dictated by : WILFREDO LOMAS MD This examination was interpreted and the report reviewed and electronically signed by: WILFREDO LOMAS MD on Jan 14 2024 3:15PM [facility] DIVISION OF RADIOLOGY Radiology Study observation (narrative) [facility] CBC panel Auto (Bld)on 07-11 Erythrocyte distribution width (RBC) [Ratio] 13.2 % 11.5 - 15.0 % [facility] Hematocrit (Bld) [Volume fraction] 46.2 % High 36.0 - 46.0 % [facility] Hemoglobin (Bld) [Mass/Vol] 15.3 g/dL 11.5 - 15.5 g/dL [facility] MCH (RBC) [Entitic mass] 30.5 pg 26.0 - 34.0 pg [facility] MCHC (RBC) [Mass/Vol] 33.1 g/dL 30.5 - 36.0 g/dL [facility] MCV (RBC) [Entitic vol] 92.2 fL 80.0 - 100.0 fL [facility] Nucleated RBC (Bld) [#/Vol] <0.01 k/uL [facility] Platelet mean volume (Bld) [Entitic vol] 12.0 fL 9.0 - 12.7 fL [facility] Platelets (Bld) [#/Vol] 226 10*3/uL 150 - 400 k/uL [facility] RBC (Bld) [#/Vol] 5.01 10*6/uL 3.90 - 5.2 0 m/uL [facility] WBC (Bld) [#/Vol] 8.10 10*3/uL 3.70 - 11. 00 k/uL [facility] Comprehensive metabolic 2000 panelon 07-11-2023 Albumin [Mass/Vol] 4.0 g/dL 3.9 - 4.9 g/dL [facility] ALP [Catalytic activity/Vol] 90 U/L 34 - 123 U/L [facility] ALT [Catalytic activity/Vol] 19 U/L 7 - 38 U/L [facility] Anion gap [Moles/Vol] 10 mmol/L 9 - 18 mmol/L [facility] AST [Catalytic activity/Vol] 18 U/L 13 - 35 U/L [facility] Bilirubin [Mass/Vol] 0.6 mg/dL 0.2 - 1 .3 mg/dL [facility] Calcium [Mass/Vol] 9.6 mg/dL 8.5 - 10. 2 mg/dL [facility] Chloride [Moles/Vol] 104 mmol/L 97 - 10 5 mmol/L [facility] CO2 [Moles/Vol] 24 mmol/L 22 - 30 mmol/L [facility] Creatinine [Mass/Vol] 0.60 mg/dL 0.58 - 0.96 mg/dL [facility] Estimated Glomerular Filtration Rate 100 mL/min/1.73m >=60 mL/min/1.73m [facility] Glucose [Mass/Vol] 100 mg/dL High 74 - 99 mg/dL [facility] Potassium [Moles/Vol] 4.4 mmol/L 3.7 - 5.1 mmol/L [facility] Protein [Mass/Vol] 6.8 g/dL 6.3 - 8.0 g/dL [facility] Sodium [Moles/Vol] 138 mmol/L 136 - 144 mmol/L [facility] Urea nitrogen [Mass/Vol] 13 mg/dL 7 - 21 mg/dL [facility] HbA1c (Bld)on 07-11-2023 Average glucose Estimated from glycated hemoglobin (Bld) [Mass/Vol] 114 mg/dL [facility] HbA1c (Bld) [Mass fraction] 5.6 % 4.3 - 5.6 % [facility] Lipid 1996 panelon Cholesterol [Mass/Vol] 118 mg/dL <200 mg/dL [facility] Cholesterol in HDL [Mass/Vol] 41 mg/dL >39 mg/[facility] Cholesterol in LDL [Mass/Vol] 60 mg/dL <100 mg/dL [facility] Cholesterol in LDL/Cholesterol in HDL [Mass ratio] 1.46 {ratio} <2.54 [facility] Cholesterol in VLDL [Mass/Vol] 17 mg/dL <30 mg/dL [facility] Cholesterol non HDL [Mass/Vol] 77 mg/dL <130 mg/dL [facility] Cholesterol.total/Cho lesterol in HDL [Mass ratio] 2.88 {ratio} <5.10 [facility] Fasting Time 12 hrs [facility] Triglyceride [Mass/Vol] 85 mg/dL <150 mg/dL [facility] T4 FREE/FREE THYROXon 2022 Free T4 [Mass/Vol] 1.1 ng/dL 0.9 - 1.7 ng/dL [facility] TSH BLDon 07-11-2023 TSH Qn 2.080 m[IU]/L 0.270 - 4.200 mIU/L [facility] VITAMIN D 25 HYDROXYon 07-11 25-hydroxyvitamin D3 [Mass/Vol] 39.7 ng/mL 31.0 - 80.0 ng/mL [facility] No Panel Informationon 03-22 [facility] CBC W Auto Differential pane l (Bld)on 01-08-2023 Basophils (Bld) [#/Vol] 0.04 10*3/uL <0.11 k/uL [facility] Basophils/100 WBC (Bld) 0.4 % [facility] Differential cell count method Nom (Bld) Auto [facility] Eosinophils (Bld) [#/Vol] 0.15 10*3/uL <0.46 k/uL [facility] Eosinophils/100 WBC (Bld) 1.5 % [facility] Erythrocyte distribution width (RBC) [Ratio] 12.9 % 11.5 - 15.0 % [facility] Hematocrit (Bld) [Volume fraction] 40.8 % 36.0 - 46.0 % [facility] Hemoglobin (Bld) [Mass/Vol] 12.9 g/dL 11.5 - 15.5 g/dL [facility] Immature granulocytes (Bld) [#/Vol] 0.04 10*3/uL <0.10 k/uL [facility] Immature granulocytes/100 WBC (Bld) 0.4 % [facility] Lymphocytes (Bld) [#/Vol] 1.27 10*3/uL 1.00 - 4.00 k/uL [facility] Lymphocytes/100 WBC (Bld) 12.5 % [facility] MCH (RBC) [Entitic mass] 29.6 pg 26.0 - 34.0 pg [facility] MCHC (RBC) [Mass/Vol] 31.6 g/dL 30.5 - 36.0 g/dL [facility] MCV (RBC) [Entitic vol] 93.6 fL 80.0 - 100.0 fL [facility] Monocytes (Bld) [#/Vol] 0.87 10*3/uL High <0.87 k/uL [facility] Monocytes/100 WBC (Bld) 8.5 % [facility] Neutrophils (Bld) [#/Vol] 7.83 10*3/uL High 1.45 - 7.50 k/uL [facility] Neutrophils/100 WBC (Bld) 76.7 % [facility] Nucleated RBC (Bld) [#/Vol] <0.01 k/uL [facility] Nucleated RBC/100 WBC (Bld) [Ratio] 0.0 /100 WBC [facility] Platelet mean volume (Bld) [Entitic vol] 12.2 fL 9.0 - 12.7 fL [facility] Platelets (Bld) [#/Vol] 274 10*3/uL 150 - 400 k/uL [facility] RBC (Bld) [#/Vol] 4.36 10*6/uL 3.90 - 5.2 0 m/uL [facility] WBC (Bld) [#/Vol] 10.20 10*3/uL 3.70 - 11 .00 k/uL [facility] XR CHEST 2V FRONTAL/LATon [facility] XR Chest PA and Lateralon IMPRESSION: No acute radiographic abnormality. Information Systems Security Officer: PSCB Transcribe Date/Time: Jan 08 2023 12:26P Dictated by : GEN SMITH MD This examination was interpreted and the report reviewed and electronically signed by: GEN SMITH MD on Jan 08 2023 12:38PM [facility] DIVISION OF RADIOLOGY * * *Final Report* * * DATE OF EXAM: Jan 08 2023 10:14AM WOX 5291 - XR CHEST 2V FRONTAL/LAT / PROCEDURE REASON: multiple diagnoses * * * * Physician Interpretation * * * * EXAMINATION: CHEST RADIOGRAPH (2 VIEW FRONTAL & LATERAL) CLINICAL HISTORY: Acute cough Wheezing MQ: XC2_6 EXAM DATE/TIME: 01/08/2023 10:14 AM COMPARISON: No relevant prior studies available. RESULT: Lines, tubes, and devices: None. Lungs and pleura: No consolidation. No lung mass. No pleural effusion. No pneumothorax. Cardiomediastinal silhouette: Normal cardiomediastinal silhouette. Bones and soft tissues: Moderate degenerative change throughout the dorsal spine. Cervical orthopedic hardware is seen DIVISION OF RADIOLOGY Provider, Ricki Medrano - 01/08/2023 * * *Final Report* * * DATE OF EXAM: Jan 08 2023 10:14AM WOX 5291 - XR CHEST 2V FRONTAL/LAT / PROCEDURE REASON: multiple diagnoses * * * * Physician Interpretation * * * * EXAMINATION: CHEST RADIOGRAPH (2 VIEW FRONTAL & LATERAL) CLINICAL HISTORY: Acute cough Wheezing MQ: XC2_6 EXAM DATE/TIME: 01/08/2023 10:14 AM COMPARISON: No relevant prior studies available. RESULT: Lines, tubes, and devices: None. Lungs and pleura: No consolidation. No lung mass. No pleural effusion. No pneumothorax. Cardiomediastinal silhouette: Normal cardiomediastinal silhouette. Bones and soft tissues: Moderate degenerative change throughout the dorsal spine. Cervical orthopedic hardware is seen IMPRESSION IMPRESSION: No acute radiographic abnormality. Information Systems Security Officer: PSCB Transcribe Date/Time: Jan 08 2023 12:26P Dictated by : GEN SMITH MD This examination was interpreted and the report reviewed and electronically signed by: GEN SMITH MD on Jan 08 2023 12:38PM EST [facility] Radiology Study observation (narrative) [facility] XR Chest PA and LateralOrder ed By: [facility] Provider on 01-08-2023 [facility] Absolute lymphocyte countOrd ered By: Dr. Anderson on 12-04-2022 Lymphocytes Auto (Unsp spec) [#/Vol] 1.35 10*3/uL 0.83-4.51 [facility] Basophil percentageOrdered B y: Dr. Anderson on 12-04-2022 Basophils/100 WBC (Bld) 0.3 % 0-1 [facility] Chloride [Moles/Vol] 110 mmol/L 98-107 [facility] Eosinophils/100 WBC (Bld) 1.1 % 0-5 [facility] Glucose [Mass/Vol] 113 mg/dL 74-106 [facility] Comment on above: Fasting Glucose resu lt from 100 to 125 mg/dL suggests IMPAIRED HOMEOSTASIS per A.D.A. criteria. Neutrophils (Bld) [#/Vol] 5.2 10*3/uL 2.0-7.7 [facility] Neutrophils/100 WBC (Bld) 72.5 % 47-70 [facility] Potassium [Moles/Vol] 4.0 mmol/L 3.5-5.1 [facility] Sodium [Moles/Vol] 140 mmol/L 136-145 [facility] WBC (Bld) [#/Vol] 7.2 10*3/uL 4.4-11.0 [facility] Blood erythrocytes count (nu mber/volume)Ordered By: Dr. Anderson on 12-04-2022 RBC (Bld) [#/Vol] 3.76 10*6/uL 4.2-5.4 [facility] Blood hemoglobin measurement (mass/volume)Ordered By: Dr. Anderson on 12-04-2022 Hemoglobin (Bld) [Mass/Vol] 11.7 g/dL 12.0-15.0 [facility] Blood lymphocytes/100 leukoc ytesOrdered By: Dr. Anderson on 12-04-2022 Lymphocytes/100 WBC (Bld) 18.9 % 19-41 [facility] Blood monocytes/100 leukocyt esOrdered By: Dr. Anderson on 12-04-2022 Monocytes/100 WBC (Bld) 6.9 % 0-10 [facility] Blood platelet mean volumeOr dered By: Dr. Anderson on 12-04-2022 Platelet mean volume (Bld) [Entitic vol] 11.3 fL 6.2-12.0 [facility] Determination of erythrocyte mean corpuscular volume (MCV)Ordered By: Dr. Anderson on 12-04-2022 MCV (RBC) [Entitic vol] 91.8 fL 81-99 [facility] Hematocrit Auto (Bld) [Volum e fraction]Ordered By: Dr. Anderson on 12-04-2022 Hematocrit (Bld) [Volume fraction] 34.5 % 37-47 [facility] Laboratory - Chemistry and C hemistry - challengeOrdered By: Dr. Anderson on 12-04-2022 CO2 [Moles/Vol] 25.0 mmol/L 21.0-32.0 [facility] Urea nitrogen/Creatinine [Mass ratio] 32.0 mg/mg 10-20 [facility] Laboratory - Hematology and Cell countsOrdered By: Dr. Anderson on 12-04-2022 Erythrocyte distribution width (RBC) [Entitic vol] 41.9 fL 35.1-43.9 [facility] Erythrocyte distribution width (RBC) [Ratio] 12.6 % 11.6-14.6 [facility] Immature granulocytes/100 WBC (Bld) 0.300 % 0.0-0.9 [facility] Comment on above: IG% - Immature Granu locytes (promyelocytes, myelocytes and metamyelocytes) > 1% indicates that a LEFT SHIFT is Present. MCH (RBC) [Entitic mass] 31.1 pg 27.0-32.0 [facility] Nucleated RBC/100 WBC (Bld) [Ratio] 0 % 0-5 [facility] MCHC Auto (RBC) [Mass/Vol]Or dered By: Dr. Anderson on 12-04-2022 MCHC (RBC) [Mass/Vol] 33.9 g/dL 32-36 [facility] No Panel InformationOrdered By: Dr. Anderson on 12-04-2022 Estimated Creatinine Clearance Calc 98.69 ml/min [facility] Estimated GFR (MDRD) Amer 139 mL/min >60 [facility] Comment on above: GFR Calc Estimated GFR (MDRD) Non-Af Amer 115 mL/min >60 [facility] Comment on above: Non- GFR Calc Platelets bldOrdered By: Dr. Anderson on 12-04-2022 Platelets (Bld) [#/Vol] 238 10*3/uL 150-450 [facility] Serum or plasma calcium maria victoria urement (mass/volume)Ordered By: Dr. Anderson on 12-04-2022 Calcium [Mass/Vol] 9.4 mg/dL 8.5-10.1 [facility] Serum or plasma creatinine m easurement (mass/volume)Ordered By: Dr. Anderson on 12-04-2022 Creatinine [Mass/Vol] 0.56 mg/dL 0.55-1.02 [facility] Comment on above: The validity of the calculated GFR & GFRAA in patients over 70 years has not been determined. Clinical correlation is essential. Serum or plasma urea nitroge n measurement (mass/volume)Ordered By: Dr. Anderson on 12-04-2022 Urea nitrogen [Mass/Vol] 18 mg/dL 7-18 [facility] Thin prep Papanicolaou smear with manual screeningOrdered By: Dr. Anderson on 12-04-2022 Thin prep Papanicolaou smear with manual screening 5 5-15 [facility] TRINA SCREENINGon 02-06-2022 [facility] Basophil percentageon 2021 Bilirubin [Mass/Vol] 0.70 mg/dL 0.20-1.00 [facility] Work Phone: [phone] Comment on above: For patients on eltr ombopag therapy, use of Dimension [place] TBIL is not recommended. Cholesterol [Mass/Vol] 131 mg/dL <200 [facility] Work Phone: [phone] Comment on above: <200 mg/dL Desirable 200-240 mg/dL Borderline >240 mg/dL High Risk Protein [Mass/Vol] 7.5 g/dL 6.4-8.2 [facility] Work Phone: [phone] Triglyceride [Mass/Vol] 82 mg/dL [facility] Work Phone: [phone] Comment on above: The drugs N-Acetylcy steine and Metamizole may falsely depress this assay.Serum Triglycerides Reference Interval Normal <150 mg/dL Borderline high 150 - 199 mg/dL High 200 - 499 mg/dL Very High > or = 500 mg/dL Direct bilirubinon 2 Bilirubin.direct [Mass/Vol] 0.17 mg/dL 0.00-0.30 [facility] Work Phone: [phone] Laboratory - Chemistry and C hemistry - challengeon 12-14-2021 ALP [Catalytic activity/Vol] 99 U/L 45-117 [facility] Work Phone: [phone] ALT [Catalytic activity/Vol] 25 U/L 13-56 [facility] Work Phone: [phone] Globulin (S) [Mass/Vol] 4.1 g/dL 2.2-4.2 [facility] Work Phone: [phone] Serum or plasma albumin maria victoria urement (mass/volume)on 12-14-2021 Albumin [Mass/Vol] 3.4 g/dL 3.2-5.0 [facility] Work Phone: Serum or plasma cholesterol in HDL measurement (mass/volume)on 12-14-2021 Cholesterol in HDL [Mass/Vol] 54 mg/dL [facility] Work Phone: Comment on above: The drugs N-Acetylcy steine and Metamizole may falsely depress this assay. Reference Range HDL <40 mg/dL Low HDL Cholesterol HDL >or= 60 mg/dL High HDL Cholesterol Serum or plasma cholesterol in VLDL measurement (mass/volume)on 12-14-2021 Cholesterol in VLDL [Mass/Vol] 16 mg/dL 5-40 [facility] Work Phone: Serum or plasma low density lipoprotein (LDL) cholesterol measurement (mass/volume)on 12-14-2021 Cholesterol in LDL [Mass/Vol] 61 mg/dL 0-130 [facility] Work Phone: Thin prep Papanicolaou smear with manual screeningon 12-14-2021 Thin prep Papanicolaou smear with manual screening 18 U/L 15-37 [facility] Work Phone: Lab Report: Lipid Profileon 07-14-2017 Cholesterol 105 mg/dL Invalid Interpretation Code 200 [facility] Work Phone: [phone] HDL Cholesterol 62 mg/dL Invalid Interpretation Code [facility] Work Phone: [phone] LDL Cholesterol 35 mg/dL Invalid Interpretation Code 0-130 [facility] Work Phone: [phone] Triglyceride 42 mg/dL Invalid Interpretation Code [facility] Work Phone: [phone] very low density lipoproteins 8 mg/dL Invalid Interpretation Code 5-40 [facility] Work Phone: [phone] Lab Report: Liver Profileon 07-14-2017 Alanine aminotransferase (ALT) 27 U/L Invalid Interpretation Code 12-78 [facility] Work Phone: [phone] Albumin 3.4 g/dL Invalid Interpretation Code 3.4-5.0 [facility] Work Phone: [phone] Alkaline phosphatase (ALP) 95 U/L Invalid Interpretation Code 45-117 [facility] Work Phone: Aspartate aminotransferase (AST) 18 U/L Invalid Interpretation Code 15-37 [employer] Phone: [phone] Bilirubin (direct) 0.14 mg/dL Invalid Interpretation Code 0.00-0.30 [employer] Work Phone: [phone] Bilirubin (total) 0.50 mg/dL Invalid Interpretation Code 0.20-1.00 [employer] Phone: [phone] Globulin 3.6 g/dL Invalid Interpretation Code 2.2-4.2 [employer] Work Phone: [phone] Protein 7.0 g/dL Invalid Interpretation Code 6.4-8.2 [employer] Phone: [phone] Office Visit: [facility] 06-06-20 Documentation of current medications (procedure) Done Invalid Interpretation Code [employer] Phone: [phone] Fall risk assessment No Invalid Interpretation Code [employer] Phone: [phone] Protein mass conc Done Invalid Interpretation Code [employer] Phone: [phone] Protein mass conc yes Invalid Interpretation Code [employer] Phone: [phone] Smoking cessation education (procedure) yes Invalid Interpretation Code [employer] Phone: [phone] Tobacco smoking status NHIS Current every day smoker Invalid Interpretation Code [employer] Phone: [phone] Tobacco use CPHS Current every day smoker Invalid Interpretation Code [employer] Phone: [phone] 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 Left ventricular Ejection fraction 60 % Invalid Interpretation Code [employer] Phone: [phone] Lab Report: Lipid Profileon 06-24-2016 Cholesterol 112 mg/dL Invalid Interpretation Code 200 [employer] Work Phone: [phone] HDL Cholesterol 52 mg/dL Invalid Interpretation Code [employer] Work Phone: [phone] LDL Cholesterol 48 mg/dL Invalid Interpretation Code 0-130 [employer] Phone: [phone] Triglyceride 62 mg/dL Invalid Interpretation Code [employer] Phone: [phone] very low density lipoproteins 12 mg/dL Invalid Interpretation Code 5-40 [employer] Work Phone: [phone] Lab Report: Liver Profileon 06-24-2016 Alanine aminotransferase (ALT) 32 U/L Invalid Interpretation Code 12-78 [employer] Work Phone: [phone] Albumin 3.7 g/dL Invalid Interpretation Code 3.4-5.0 [employer] Phone: [phone] Alkaline phosphatase (ALP) 91 U/L Invalid Interpretation Code 50-136 [employer] Work Phone: [phone] ALP enzyme act/vol (Bld) 91 U/L Invalid Interpretation Code 50-136 [facility] [employer] Work Phone: [phone] Aspartate aminotransferase (AST) 22 U/L Invalid Interpretation Code 15-37 [employer] Phone: [phone] Bilirubin (direct) 0.19 mg/dL Invalid Interpretation Code 0.00-0.30 [employer] Phone: [phone] Bilirubin (total) 0.70 mg/dL Invalid Interpretation Code 0.20-1.00 [employer] Phone: [phone] Globulin 3.4 g/dL Invalid Interpretation Code 2.3-3.5 [employer] Phone: [phone] Protein 7.1 g/dL Invalid Interpretation Code 6.4-8.2 [employer] Phone: [phone] Office Visiton 05-24-2016 Documentation of current medications (procedure) Done Invalid Interpretation Code [employer] Phone: [phone] Smoking cessation education (procedure) yes Invalid Interpretation Code [employer] Work Phone: [phone] Tobacco use CPHS Current every day smoker Invalid Interpretation Code [employer] Phone: [phone] Office Visiton 05-31-2015 cardiac risk group C Invalid Interpretation Code [employer] Phone: [phone] General cardiovascular disease 10Y risk [#] Caputa.D'Agostpedro N/A Invalid Interpretation Code [employer] Phone: [phone] Lab Report: LIVERon 06-20-20 14 ALK 98 U/L Normal 50-136 [facility] Work Phone: [phone] Replaced Document: Kathy Waddell 04-14-2013 EKG QRS axis 21 deg Invalid Interpretation Code [facility] Work Phone: [phone] Interpretation Sinus Bradycardia WITHIN NORMAL LIMITS Invalid Interpretation Code [facility] Work Phone: [phone] P Tatums 26 deg Invalid Interpretation Code [facility] Work Phone: [phone] MA Interval 184 ms Invalid Interpretation Code [facility] Work Phone: [phone] Pulse (Heart Rate) 430 ms Invalid Interpretation Code [facility] Work Phone: [phone] Pulse (Heart Rate) 56 /min Invalid Interpretation Code [facility] Work Phone: [phone] QRS Duration 84 ms Invalid Interpretation Code [facility] Work Phone: [phone] QT Interval new path ms Invalid Interpretation Code [facility] Work Phone: [phone] T Tatums 54 deg Invalid Interpretation Code [facility] Work Phone: [phone] Vital Signs Date Time Vital Sign Value Performing Clinician Facility 12-10-2024 10:49-0400 Diastolic blood pressure 80 mm[Hg] [facility] Work Phone: [facility] 12-10-2024 10:49-0400 Systolic blood pressure 122 mm[Hg] [facility] Work Phone: [facility] 12-10-2024 10:13-0400 Body height 173 cm [facility] Work Phone: [facility] 12-10-2024 10:13-0400 Body mass index (BMI) [Ratio] 23.19 kg/m2 [facility] Work Phone: [facility] 12-10-2024 10:13-0400 Body weight 69.4 kg [facility] Work Phone: [facility] 12-10-2024 10:13-0400 Heart rate 96 /min Older [facility] Work Phone: [facility] 12-10-2024 10:13-0400 SaO2% (BldA) [Mass fraction] 96 % Usha Older [facility] Work Phone: [facility] 06-11-2024 09:50-0400 Body mass index (BMI) [Ratio] 23.15 kg/m2 Usha Older [facility] Work Phone: [facility] 06-11-2024 09:50-0400 Body weight 68.04 kg Usha Older [facility] Work Phone: [facility] 06-11-2024 09:50-0400 Diastolic blood pressure 62 mm[Hg] Usha Older [facility] Work Phone: [facility] 06-11-2024 09:50-0400 Heart rate 56 /min Usha Older [facility] Work Phone: [facility] 06-11-2024 09:50-0400 Respiratory rate 16 /min Usha Older [facility] Work Phone: [facility] 06-11-2024 09:50-0400 SaO2% (BldA) [Mass fraction] 97 % Usha Older [facility] Work Phone: [facility] 06-11-2024 09:50-0400 Systolic blood pressure 132 mm[Hg] Usha Older [facility] Work Phone: [facility] 01-14-2024 08:46-0400 Body mass index (BMI) [Ratio] 23.15 kg/m2 [place] [facility] Work Phone: [facility] 01-14-2024 08:46-0400 Body weight 68.04 kg [place] [facility] Work Phone: [facility] 01-14-2024 08:46-0400 Diastolic blood pressure 78 mm[Hg] Tiny [place] [facility] Work Phone: [facility] 01-14-2024 08:46-0400 Heart rate 53 /min [place] [facility] Work Phone: [facility] 01-14-2024 08:46-0400 Respiratory rate 14 /min [place] [facility] Work Phone: [facility] 01-14-2024 08:46-0400 SaO2% (BldA) [Mass fraction] 96 % [place] [facility] Work Phone: [facility] 01-14-2024 08:46-0400 Systolic blood pressure 130 mm[Hg] [place] [facility] Work Phone: [facility] 01-07-2024 08:10-0400 Diastolic blood pressure 75 mm[Hg] Tiffanie Sutherland [employer] Work Phone: [facility] Comment on above: bp average 01-07-2024 08:10-0400 Heart rate 48 /min Tiffanie Sutherland [employer] Work Phone: [facility] 01-07-2024 08:10-0400 Systolic blood pressure 154 mm[Hg] Tiffanie Sutherland [employer] Work Phone: [facility] Comment on above: bp average 01-07-2024 08:06-0400 Body mass index (BMI) [Ratio] 23.3 kg/m2 Tiffanie Sutherland [employer] Work Phone: [facility] 01-07-2024 08:06-0400 Body weight 68.49 kg Tiffanie Sutherland [employer] Work Phone: [facility] 01-07-2024 08:06-0400 Respiratory rate 16 /min Tiffanie Sutherland [employer] Work Phone: [facility] 12-10-2023 10:24-0400 Body height 171.5 cm Usha Older [facility] Work Phone: [facility] 12-10-2023 10:24-0400 Body temperature 97.3 [degF] Usha Older [facility] Work Phone: [facility] 12-10-2023 10:24-0400 Body weight 68.49 kg Usha Older [facility] [facility] Work Phone: [facility] 12-10-2023 10:24-0400 Diastolic blood pressure 76 mm[Hg] Usha Older [facility] [facility] Work Phone: [facility] 12-10-2023 10:24-0400 Heart rate 52 /min Usha Older [employer] Work Phone: [facility] 12-10-2023 10:24-0400 Respiratory rate 12 /min Usha Older [employer] [facility] [facility] Work Phone: [facility] 12-10-2023 10:24-0400 SaO2% (BldA) [Mass fraction] 97 % Usha Older [employer] [facility] [facility] Work Phone: [facility] 12-10-2023 10:24-0400 Systolic blood pressure 128 mm[Hg] Usha Older [facility] [facility] [facility] Work Phone: [facility] 08-10-2023 11:23-0500 Diastolic blood pressure 69 mm[Hg] Usha Older [facility] [facility] Work Phone: [facility] 08-10-2023 11:23-0500 Systolic blood pressure 156 mm[Hg] Usha Older [facility] Work Phone: [facility] 08-10-2023 10:48-0500 Body weight 66.68 kg Usha Older [employer] Work Phone: [facility] 08-10-2023 10:48-0500 Heart rate 48 /min Usha Older [employer] Work Phone: [facility] 08-10-2023 10:48-0500 Respiratory rate 16 /min Usha Older [employer] Work Phone: [facility] 08-10-2023 10:48-0500 SaO2% (BldA) [Mass fraction] 97 % Usha Older [employer] [facility] Work Phone: [facility] 07-11-2023 09:50-0500 Diastolic blood pressure 71 mm[Hg] Usha Older [employer] [facility] Work Phone: [facility] 07-11-2023 09:50-0500 Systolic blood pressure 156 mm[Hg] Usha Older [employer] [facility] Work Phone: [facility] 07-11-2023 09:25-0500 Body weight 65.32 kg Usha Older [employer] [facility] Work Phone: [facility] 07-11-2023 09:25-0500 Heart rate 56 /min Usha Older [employer] Work Phone: [facility] 07-11-2023 09:25-0500 Respiratory rate 16 /min Usha Older [employer] [facility] Work Phone: [facility] 07-11-2023 09:25-0500 SaO2% (BldA) [Mass fraction] 97 % Usha Older [employer] [facility] Work Phone: [facility] 07-03-2023 09:25-0400 Body height 170.[address] Shira Bullard Work Phone: [facility] 07-03-2023 09:19-0400 Body mass index (BMI) [Ratio] 22.7 kg/m2 Dr. Shira Bullard Work Phone: [facility] 07-03-2023 09:19-0400 Body weight 65.[address] Shira Bullard Work Phone: 2([phone])[phone] [place] [address] 07-03-2023 09:19-0400 Diastolic blood pressure 81 mm[Hg] Dr. Shira Bullard Work Phone: 8(727)[phone] [place] [address] 07-03-2023 09:19-0400 Heart rate 44 /min Dr. Shira Bullard Work Phone: [facility] 07-03-2023 09:19-0400 Respiratory rate 14 /min Dr. Shira Bullard Work Phone: 1(498)[phone] [place] [address] 07-03-2023 09:19-0400 Systolic blood pressure 163 mm[Hg] Dr. Shira Bullard Work Phone: 3(363)210-955235 [place] [address] 01-08-2023 09:47-0400 Diastolic blood pressure 76 mm[Hg] Usha Older [employer] Work Phone: [facility] 01-08-2023 09:47-0400 Systolic blood pressure 140 mm[Hg] Usha Older [employer] Work Phone: [facility] 01-08-2023 09:14-0400 Body temperature 97.2 [degF] Usha Older [employer] Work Phone: [facility] 01-08-2023 09:14-0400 Body weight 63.96 kg Usha Older [employer] Work Phone: [facility] 01-08-2023 09:14-0400 Heart rate 72 /min Usha Older [employer] Work Phone: [facility] 01-08-2023 09:14-0400 Respiratory rate 16 /min Usha Older [employer] Work Phone: [facility] 01-08-2023 09:14-0400 SaO2% (BldA) [Mass fraction] 95 % Usha Older [employer] Work Phone: [facility] 12-11-2022 08:07-0400 Diastolic blood pressure 76 mm[Hg] Usha Older [employer] Work Phone: [facility] 12-11-2022 08:07-0400 Heart rate 56 /min Usha Older [employer] Work Phone: [facility] 12-11-2022 08:07-0400 Systolic blood pressure 171 mm[Hg] Usha Older [employer] Work Phone: [facility] 12-11-2022 07:25-0400 Body temperature 96.91 [degF] Usha Older [employer] Work Phone: [facility] 12-11-2022 07:25-0400 Body weight 64.41 kg Usha Older [employer] Work Phone: [facility] 12-11-2022 07:25-0400 Respiratory rate 16 /min Usha Older [employer] Work Phone: [facility] 12-11-2022 07:25-0400 SaO2% (BldA) [Mass fraction] 99 % Usha Older [employer] [facility] Work Phone: [facility] 12-04-2022 15:18-0400 Body temperature 97.7 [degF] [facility] 12-04-2022 15:18-0400 Diastolic blood pressure 67 mm[Hg] [facility] 12-04-2022 15:18-0400 Heart rate 61 /min [facility] 12-04-2022 15:18-0400 Respiratory rate 18 /min [facility] 12-04-2022 15:18-0400 SaO2% (BldA) [Mass fraction] 97 % [facility] 12-04-2022 15:18-0400 Systolic blood pressure 137 mm[Hg] [facility] 12-04-2022 12:04-0400 Body height 170.18 cm [facility] 12-04-2022 12:04-0400 Body mass index (BMI) [Ratio] 22.2 kg/m2 [facility] 12-04-2022 12:04-0400 Body weight 64.41 kg [facility] 09-01-2022 08:15-0500 Diastolic Blood Pressure Non-Invasive 80 1 SIDDHARTH SUPPAN DPM [facility] 09-01-2022 08:15-0500 Heart rate 47 /min SIDDHARTH SUPPAN DPM [facility] 09-01-2022 08:15-0500 Respiratory rate 15 /min SIDDHARTH SUPPAN DPM [facility] 09-01-2022 08:15-0500 Systolic Blood Pressure Non-Invasive 167 1 SIDDHARTH SUPPAN DPM [facility] 09-01-2022 07:42-0500 Diastolic Blood Pressure Non-Invasive 75 1 SIDDHARTH SUPPAN DPM [facility] 09-01-2022 07:42-0500 Heart rate 45 /min SIDDHARTH SUPPAN DPM [facility] 09-01-2022 07:42-0500 Systolic Blood Pressure Non-Invasive 153 1 SIDDHARTH SUPPAN DPM [facility] 09-01-2022 07:37-0500 Diastolic Blood Pressure Non-Invasive 80 1 SIDDHARTH SUPPAN DPM [facility] 09-01-2022 07:37-0500 Heart rate 49 /min SIDDHARTH SUPPAN DPM [facility] 09-01-2022 07:37-0500 Respiratory rate 14 /min SIDDHARTH SUPPAN DPM [facility] 09-01-2022 07:37-0500 Systolic Blood Pressure Non-Invasive 166 1 SIDDHARTH SUPPAN DPM [facility] 09-01-2022 07:30-0500 Respiratory Rate - Anes 24 br/min SIDDHARTH SUPPAN DPM [facility] 09-01-2022 07:25-0500 Respiratory Rate - Anes 15 br/min SIDDHARTH SUPPAN DPM [facility] 09-01-2022 07:20-0500 Respiratory Rate - Anes 13 br/min SIDDHARTH SUPPAN DPM [facility] 09-01-2022 06:38-0500 Body height 171 cm SIDDHARTH SUPPAN DPM [facility] 09-01-2022 06:38-0500 Body temperature 97.7 [degF] SIDDHARTH SUPPAN DPM [facility] 09-01-2022 06:38-0500 Body weight 63.6 kg SIDDHARTH SUPPAN DPM [facility] 09-01-2022 06:38-0500 Heart rate 52 /min SIDDHARTH SUPPAN DPM [facility] 09-01-2022 06:38-0500 Respiratory rate 10 /min SIDDHARTH SUPPAN DPM [facility] 08-18-2022 10:05-0500 Blood Pressure Location SIDDHARTH SUPPAN DPM [facility] 08-18-2022 10:05-0500 Blood Pressure Method SIDDHARTH SUPPAN DPM [facility] 08-18-2022 10:05-0500 Body height 171 cm SIDDHARTH SUPPAN DPM [facility] 08-18-2022 10:05-0500 Body weight 63.6 kg SIDDHARTH SUPPAN DPM [facility] 08-18-2022 10:05-0500 Body weight 21.75 kg/m2 SIDDHARTH SUPPAN DPM [facility] 08-18-2022 10:05-0500 Diastolic Blood Pressure Non-Invasive 78 1 SIDDHARTH SUPPAN DPM [facility] 08-18-2022 10:05-0500 Heart rate 56 /min SIDDHARTH SUPPAN DPM [facility] 08-18-2022 10:05-0500 Respiratory rate 18 /min SIDDHARTH SUPPAN DPM [facility] 08-18-2022 10:05-0500 Systolic Blood Pressure Non-Invasive 164 1 SIDDHARTH SUPPAN DPM [facility] 04-28-2022 08:36-0400 Diastolic Blood Pressure NBP 81 1 SIDDHARTH SUPPAN DPM [facility] 04-28-2022 08:36-0400 Heart rate 46 /min SIDDHARTH SUPPAN DPM [facility] 04-28-2022 08:36-0400 Respiratory rate 17 /min SIDDHARTH SUPPAN DPM [facility] 04-28-2022 08:36-0400 Systolic Blood Pressure NBP 183 1 SIDDHARTH SUPPAN DPM [facility] 04-28-2022 08:23-0400 Diastolic Blood Pressure NBP 84 1 SIDDHARTH SUPPAN DPM [facility] 04-28-2022 08:23-0400 Heart rate 51 /min SIDDHARTH SUPPAN DPM [facility] 04-28-2022 08:23-0400 Respiratory rate 12 /min SIDDHARTH SUPPAN DPM [facility] 04-28-2022 08:23-0400 Systolic Blood Pressure NBP 179 1 SIDDHARTH SUPPAN DPM [facility] 04-28-2022 08:10-0400 Diastolic Blood Pressure NBP 79 1 SIDDHARTH SUPPAN DPM [facility] 04-28-2022 08:10-0400 Heart rate 46 /min SIDDHARTH SUPPAN DPM [facility] 04-28-2022 08:10-0400 Respiratory rate 15 /min SIDDHARTH SUPPAN DPM [facility] 04-28-2022 08:10-0400 Systolic Blood Pressure NBP 172 1 SIDDHARTH SUPPAN DPM [facility] 04-28-2022 08:01-0400 Body temperature 98.06 [degF] SIDDHARTH SUPPAN DPM [facility] 04-28-2022 06:15-0400 Body height 170.2 cm SIDDHARTH SUPPAN DPM [facility] 04-28-2022 06:15-0400 Body temperature 96.8 [degF] SIDDHARTH SUPPAN DPM [facility] 04-28-2022 06:15-0400 Body weight 63.6 kg SIDDHARTH SUPPAN DPM [facility] 04-28-2022 06:15-0400 Heart rate 47 /min SIDDHARTH SUPPAN DPM [facility] 04-20-2022 12:52-0400 Body height 170.[address] Shira Bullard Work Phone: [facility] Work Phone: 04-20-2022 12:52-0400 Body mass index (BMI) [Ratio] 20.9 kg/m2 Dr. Shira Bullard Work Phone: [facility] Work Phone: 04-20-2022 12:52-0400 Body weight 60.[address] Shira Bullard Work Phone: [facility] Work Phone: 04-20-2022 12:52-0400 Diastolic blood pressure 77 mm[Hg] Dr. Shira Bullard Work Phone: [facility] Work Phone: 04-20-2022 12:52-0400 Heart rate 54 /min Dr. Shira Bullard Work Phone: [facility] Work Phone: 04-20-2022 12:52-0400 Respiratory rate 16 /min Dr. Shira Bullard Work Phone: [facility] Work Phone: 04-20-2022 12:52-0400 Systolic blood pressure 157 mm[Hg] Dr. Shira Bullard Work Phone: [facility] Work Phone: 11-21-2021 15:29-0400 Body height 170.[address] Shira Bullard Work Phone: [facility] Work Phone: 11-21-2021 15:29-0400 Body weight 61.[address] Shira Bullard Work Phone: [facility] Work Phone: 11-21-2021 15:29-0400 Diastolic blood pressure 84 mm[Hg] Dr. Shira Bullard Work Phone: [facility] Work Phone: 11-21-2021 15:29-0400 Heart rate 60 /min Dr. Shira Bullard Work Phone: [facility] Work Phone: 11-21-2021 15:29-0400 Respiratory rate 16 /min Dr. Shira Bullard Work Phone: [facility] Work Phone: 11-21-2021 15:29-0400 Systolic blood pressure 190 mm[Hg] Dr. Shira Bullard Work Phone: [facility] Work Phone: 01-19-2021 15:53-0400 Body mass index (BMI) [Ratio] 20.2 kg/m2 Dr. Shira Bullard Work Phone: [facility] Work Phone: 06-06-2017 14:51-0400 BMI (Body Mass Index) 21.58 kg/m2 Radha Chan [facility] Work Phone: 06-06-2017 14:51-0400 BP Diastolic 70 mm[Hg] [facility] Work Phone: 06-06-2017 14:51-0400 BP Systolic 142 mm[Hg] [facility] Work Phone: 06-06-2017 14:51-0400 Height 170.18 cm Radha [facility] Work Phone: 06-06-2017 14:51-0400 Pulse (Heart Rate) 56 /min [facility] Work Phone: 06-06-2017 14:51-0400 Weight 62.51 kg Radha [facility] Work Phone: 05-24-2016 16:33-0400 BMI (Body Mass Index) 22.58 kg/m2 Em Rausch RN [facility] Work Phone: 05-24-2016 16:33-0400 BP Diastolic 80 mm[Hg] Em Rausch RN [facility] Work Phone: 05-24-2016 16:33-0400 BP Diastolic 82 mm[Hg] Em Rausch RN [facility] Work Phone: 05-24-2016 16:33-0400 BP Systolic 142 mm[Hg] Em Rausch RN [facility] Work Phone: 05-24-2016 16:33-0400 BP Systolic 164 mm[Hg] Em Rausch RN [facility] Work Phone: 05-24-2016 16:33-0400 BSA (Body Surface Area) 1.76 m2 Em Rausch RN [facility] Work Phone: 05-24-2016 16:33-0400 Pulse (Heart Rate) 60 /min Em Rausch RN [facility] Work Phone: 05-24-2016 16:33-0400 Respiratory Rate 12 /min Em Rausch RN [facility] Work Phone: 05-24-2016 16:33-0400 Weight 65.41 kg Em Rausch RN [facility] Work Phone: 04-14-2013 14:21-0400 Heart rate 430 ms Blakerosy Perezz [facility] Work Phone: 04-14-2013 14:21-0400 Heart rate 56 /min Radha Chan [facility] Work Phone: 11-27-2011 16:29-0400 Height 170.18 cm Em Rausch RN [facility] Work Phone: Encounters Encounter Date Encounter Type Care Provider Facility Start: 03-05-2025 End: 03-05-2025 Orders Only Sharon Garrison [employer] Work Phone: Pulmonary Medicine Comment on above: Cigarette smoker (Pr imary Dx) Start: 12-19-2024 ambulatory SHIRA BULLARD Facility:[facility] Start: 12-19-2024 End: 12-19-2024 Subsequent hospital visit by physician Screen Mammo [facility] M[facility] Comment on above: Encounter for screen ing mammogram for breast cancer [Z12.31] Start: 12-10-2024 End: 12-10-2024 [facility] Facility:[facility] Start: 12-10-2024 End: 12-10-2024 Patient encounter procedure [facility] [employer] [facility] Work Phone: [facility] [place] Comment on above: Medicare annual well ness visit, subsequent (Primary Dx); Tobacco use disorder Start: 12-08-2024 End: 12-08-2024 [facility] Facility:[facility] Start: 11-25-2024 End: 11-28-2024 ambulatory Shira Bullard MD Work Phone: Internal Medicine [place] [id number] Start: 07-02-2024 End: 07-02-2024 [facility] Start: 06-30-2024 End: 06-30-2024 ambulatory [facility] Start: 06-30-2024 End: 06-30-2024 Subsequent hospital visit by physician Kai [facility] Comment on above: Segmental and somati c dysfunction of cervical region; Spondylosis without myelopathy or radiculopathy, cervical region Start: 06-16-2024 End: 06-16-2024 ambulatory Willam Barrera Facility:[facility] Start: 06-11-2024 End: 06-11-2024 [facility] Start: 06-11-2024 End: 06-11-2024 Patient encounter procedure Usha Gomes APRN.CNP Work Phone: [facility] [place] Comment on above: Essential hypertensi on (Primary Dx); Coronary artery disease involving [place] coronary artery of [place] heart without angina pectoris; Anxiety and depression Start: 05-09-2024 End: 05-09-2024 ambulatory [facility] Start: 05-09-2024 End: 05-09-2024 ambulatory Windy Dorman Facility:[facility] Start: 04-30-2024 End: 05-05-2024 ambulatory Shira Bullard MD Work Phone: Internal Medicine [place] [id number] Start: 03-29-2024 End: 03-29-2024 [facility] Facility:[facility] Start: 01-25-2024 Orders Only Tiny ayala APRN.CAMPUS REP Work Phone: [facility] Comment on above: Tobacco use current (Primary Dx) Start: 01-24-2024 End: 01-24-2024 ambulatory TINY CALDERON Facility:[facility] Start: 01-24-2024 End: 01-24-2024 Subsequent hospital visit by physician Mame briseyda W[facility] (I-Stat) Work Phone: Cat [facility] Comment on above: Tobacco use current [Z72.0] Start: 01-14-2024 Telephone encounter Usha Gomes APRN.CNP Work Phone: [facility] [place] Comment on above: Results Start: 01-14-2024 End: 01-14-2024 ambulatory USHA OLDER Facility:[facility] Start: 01-14-2024 End: 01-14-2024 Patient encounter procedure Tiny Yumiko [employer] Work Phone: Pulmonary Medicine Comment on above: Encounter for screen ing for lung cancer (Primary Dx); Tobacco use current Start: 01-14-2024 End: 01-14-2024 Subsequent hospital visit by physician Bone Density [facility] Work Phone: Radiology Comment on above: Screening for osteop orosis [Z13.820] Start: 01-07-2024 End: 01-07-2024 Office outpatient visit 25 minutes Tiffanie Sutherland [employer] ATTENDANT Work Phone: [facility] [place] Comment on above: Ankle swelling, unsp ecified laterality (Primary Dx) Start: 01-04-2024 Refill Trisha villalpando PA-C Work Phone: [facility] [place] Comment on above: Refill Request Start: 12-26-2023 Refill Usha Gomes [employer] Work Phone: [facility] Comment on above: Refill Request Start: 12-10-2023 End: 12-10-2023 Patient encounter procedure Usha Older [employer] Work Phone: [facility] [place] Comment on above: Coronary artery dise ase involving [place] coronary artery of [place] heart without angina pectoris (Primary Dx); Essential hypertension; Mixed hyperlipidemia; Encounter for screening for lung cancer; Screening for osteoporosis; Asymptomatic menopause Start: 08-10-2023 End: 08-10-2023 Patient encounter procedure Usha Older [employer] Work Phone: [facility] [place] Comment on above: Essential hypertensi on (Primary Dx); Mixed hyperlipidemia; Coronary artery disease involving [place] coronary artery of [place] heart without angina pectoris; Anxiety and depression; Insomnia, unspecified type Start: 08-06-2023 Refill Usha Older [employer] Work Phone: [facility] [place] Comment on above: Med Change Request Start: 08-03-2023 Non-patient / Non-visit Dr. Anders Bullard Work Phone: [facility] Work Phone: Start: 08-02-2023 Non-patient / Non-visit Dr. Anders Bullard Work Phone: [facility] Start: 08-02-2023 End: 08-02-[address] Shira Bullard Work Phone: [facility] Work Phone: Start: 08-02-2023 End: 08-02-[address] Shira Bullard Work Phone: [facility] Work Phone: Start: 07-11-2023 End: 07-11-2023 Patient encounter procedure Usha Gomes APRN.CAMPUS REP Work Phone: Internal [facility] Comment on above: Essential hypertensi on (Primary Dx); Anxiety and depression; Insomnia, unspecified type; Coronary artery disease involving [place] coronary artery of [place] heart without angina pectoris; Tobacco use disorder; Mixed hyperlipidemia; Elevated glucose; Vitamin D deficiency Start: 07-03-2023 End: 07-03-[address] Shira Bullard Work Phone: [facility] Work Phone: Start: 06-15-2023 Refill Usha BarbozaCAMPUS REP Work Phone: Internal [facility] Comment on above: Refill Request Start: 03-26-2023 Telephone encounter Jeniffer ayala APRN.CAMPUS REP Work Phone: Internal [facility] Comment on above: Results Start: 03-22-2023 End: 03-22-2023 Subsequent hospital visit by physician Screen Mammo [facility] Comment on above: Encounter for screen ing mammogram for breast cancer [Z12.31] Start: 03-01-2023 Telephone encounter Shira gannon MD Work Phone: Internal [facility] [place] Comment on above: Mammogram order Start: 01-10-2023 Telephone encounter Usha Gomes APRN.CNP Work Phone: [facility] [place] Comment on above: Results Start: 01-08-2023 Telephone encounter Usha Gomes APRN.CNP Work Phone: [facility] [place] Comment on above: Results Start: 01-08-2023 End: 01-08-2023 Subsequent hospital visit by physician Xr [facility] Work Phone: Radiology Comment on above: Acute cough [R05.1] Start: 01-08-2023 End: 01-08-2023 Patient encounter procedure Usha Gomes APRN.CNP Work Phone: [facility] [place] Comment on above: Annual physical exam (Primary Dx); Acute cough; Wheezing; Anxiety and depression; Essential hypertension; Coronary artery disease involving [place] coronary artery of [place] heart without angina pectoris; Mixed hyperlipidemia; Elevated glucose; Anemia, unspecified type; Vitamin D deficiency Start: 12-11-2022 End: 12-11-2022 Patient encounter procedure Usha Gomes APRN.CAMPUS REP Work Phone: [facility] [place] Comment on above: History of recent ho spitalization (Primary Dx); Gastrointestinal hemorrhage associated with duodenal ulcer; Vitamin D deficiency; Hypokalemia; Anemia, unspecified type; Anxiety and depression; Essential hypertension; Mixed hyperlipidemia Start: 12-06-2022 Telephone encounter Shira gannon MD Work Phone: [facility] [place] Comment on above: Patient Update; Lab Orders Start: 12-04-2022 Evaluation and manag ement of inpatient [facility] 3 Start: 12-04-2022 observation encounter [facility] Work Phone: Start: 09-01-2022 End: 09-01-2022 ambulatory SIDDHARTH CALVO Facility:B Start: 09-01-2022 End: 09-01-2022 SAME DAY STAY SIDDHARTH CALVO DPM [facility] Start: 08-18-2022 End: 08-19-2022 ambulatory SIDDHARTH CALVO Facility:[facility] Start: 08-18-2022 End: 08-18-2022 Admission to establishment SIDDHARTH CALVO DPM [facility] Start: 04-28-2022 End: 04-28-2022 ambulatory SIDDHARTH CALVO Facility:[facility] Start: 04-28-2022 End: 04-28-2022 SAME DAY STAY SIDDHARTH CALVO DPM [facility] Start: 04-26-2022 Non-patient / Non-visit Dr. Anders Bullard Work Phone: [facility] Start: 04-26-2022 End: 04-26-[address] Shira Bullard Work Phone: [facility] Work Phone: Start: 04-26-2022 End: 04-26-[address] Shira Bullard Work Phone: [facility] Start: 04-20-2022 End: 04-20-2022 Admission to same day surgery center Dr. Shira Bullard Work Phone: [facility] Start: 04-20-2022 End: 04-20-[address] Shira Bullard Work Phone: [facility] Start: 04-18-2022 End: 04-19-2022 ambulatory SIDDHARTH CALVO Facility:[facility] Start: 02-06-2022 Documentation procedure Mammog poppy Coordinator [facility] Start: 02-06-2022 Letter encounter Mammography Coordinator [facility] Start: 02-06-2022 End: 02-06-2022 Subsequent hospital visit by physician Screen Mammo [facility] Comment on above: Encounter for screen ing mammogram for breast cancer [Z12.31] Start: 12-20-2021 Non-patient / Non-visit Dr. Anders Bullard Work Phone: [facility] Start: 12-20-2021 End: 12-20-[address] Shira Bullard Work Phone: [facility] Start: 12-14-2021 End: 12-14-[address] Shira Bullard Work Phone: [facility]Laboratory Start: 11-21-2021 End: 11-21-[address] Shira Bullard Work Phone: [facility] [facility] Start: 06-13-2021 Telephone encounter Shira gannon MD Work Phone: [facility] Comment on above: Patient Question Procedures Date Procedure Procedure Detail Performing Clinician Start: 12-08-2024 Lipid 1995 panel - S avtar or Plasma Usha Older [facility] Work Phone: Start: 06-30-2024 Radex spine cervical 6 or more views Non-Uh Radiology Contrast Provider Start: 01-24-2024 CT [facility] [employer] Work Phone: Start: 01-14-2024 BD DXA TRABECULAR DAYANA NE SCORE (TBS) Usha Gomes [facility] Work Phone: Start: 01-14-2024 Dxa bone density remi dy 1/> sites axial skel Usha Older [facility] Work Phone: Start: 07-11-2023 Lipid 1996 panel - S avtar or Plasma Usha Older [facility] Work Phone: Start: 03-22-2023 End: 03-22-2023 Mammography Shaylee Older [facility] Work Phone: Start: 01-08-2023 Radiologic exam ches t 2 views Usha Gomes [facility] Work Phone: Start: 12-11-2022 Lipid 1996 panel - S avtar or Plasma Usha Gomes [facility] RE[facility] Work Phone: Start: 12-05-2022 Colonoscopy Shira gannon MD Work Phone: Start: 12-04-2022 Computed tomography of abdomen and pelvis with intravenous contrast Start: 04-26-2022 Cardiovascular stres s test using pharmacologic stress agent Dr. Shira Bullard Work Phone: Start: 02-06-2022 End: 02-06-2022 Screening mammography bi 2-view breast inc cad Bulk Order Provider Start: 05-24-2021 Left hip region stru cture (body structure) SIDDHARTH CALVO DPM Start: 03-12-2019 Adult depression scr eening assessment Screen Wstr Start: 09-03-2018 Open reduction of fr acture with internal fixation SIDDHARTH CALVO DPM Comment on above: LEFT HIP Start: 08-23-2018 Colonoscopy Screen Wst r Start: 06-06-2017 End: 06-06-2017 Follow Up Appt 1 year Jerry Pizarro NP Work Phone: Start: 06-06-2017 End: 06-06-2017 PFM Jerry Pizarro VERTICAL CONTOUR BAND SAW OPERATOR Work Phone: Start: 06-05-2017 Placement of stent i n coronary artery Coronary stent Radha Chan Start: 12-25-2016 End: 07-16-2017 *Hepatic Function Panel Feliz Clancy MD Start: 12-25-2016 End: 07-16-2017 Lipid 1996 panel - Serum or Plasma Feliz Clancy MD Start: 05-24-2016 End: 06-26-2016 *Hepatic Function Panel Feliz Clancy MD Start: 05-24-2016 End: 05-25-2016 Follow Up Appt 1 year Feliz Munoz Start: 05-24-2016 End: 06-26-2016 Lipid 1996 panel - Serum or Plasma Feliz Clancy MD Start: 05-24-2016 End: 05-25-2016 PFM Feliz Clancy MD Start: 12-21-2015 End: 07-01-2016 *Hepatic Function Panel Feliz Clancy MD Start: 12-21-2015 End: 07-01-2016 Lipid 1996 panel - Serum or Plasma Feliz Clancy MD Start: 05-31-2015 End: 06-21-2015 *Hepatic Function Panel Feliz Clancy MD Start: 05-31-2015 End: 06-01-2015 Documentation of current medications Feliz Clancy MD Start: 05-31-2015 End: 05-31-2015 Follow Up Appt 1 year Feliz Munoz Start: 05-31-2015 End: 06-21-2015 Lipid 1996 panel - Serum or Plasma Feliz Clancy MD Start: 05-31-2015 End: 05-31-2015 PFM Feliz Clancy MD Start: 05-31-2015 End: 06-01-2015 Smoking cessation education Feliz Clancy MD Start: 05-11-2014 End: 06-22-2014 *Hepatic Function Panel Feliz Clancy MD Start: 05-11-2014 End: 06-22-2014 Lipid 1996 panel - Serum or Plasma Feliz Clancy MD Start: 11-01-2013 End: 06-22-2014 *Hepatic Function Panel Feliz Clancy MD Start: 11-01-2013 End: 06-22-2014 Lipid 1996 panel - Serum or Plasma Feliz Clancy MD Start: 04-14-2013 End: 05-12-2013 *Hepatic Function Panel Feliz Clancy MD Start: 04-14-2013 End: 04-14-2013 Ecg routine ecg w/least 12 lds w/i&r Feliz Clancy MD Start: 04-14-2013 End: 05-12-2013 Lipid 1996 panel - Serum or Plasma Feliz Clancy MD Start: 11-01-2012 End: 05-12-2013 *Hepatic Function Panel Jin Chaves MD Start: 11-01-2012 End: 05-12-2013 Lipid 1996 panel - Serum or Plasma Jin Chaves MD Start: 05-28-2012 End: 06-02-2012 *Hepatic Function Panel Jin Chaves MD Start: 05-28-2012 End: 05-28-2012 Follow Up Appt 1 year Jin Chaves MD Start: 05-28-2012 End: 06-02-2012 Lipid 1996 panel - Serum or Plasma iJn Chaves MD Start: 05-08-2012 End: 05-28-2012 *Hepatic Function Panel Jin Chaves MD Start: 05-08-2012 End: 05-28-2012 Lipid 1996 panel - Serum or Plasma Jin Chaves MD Start: 11-27-2011 End: 11-27-2011 Follow Up Appt 6 months Jin Chaves MD Start: 03-03-2008 History of placement of stent for coronary artery disease History of coronary artery stent placement Dr. Shira Bullard Work Phone: Cardiac catheterization ROMA CALVO DPM Comment on above: x2 Cervical arthrodesis SIDDHARTH PAZ DPM Comment on above: [id number] Hysterectomy SIDDHARTH CALVO DP M Neck structure (body structure) SIDDHARTH CALVO DPM Comment on above: neck surgery on her spine. Shoulder region stru cture (body structure) SIDDHARTH CALVO DPM Comment on above: SURGERY, RIGHT Stented coronary art danis (finding) SIDDHARTH CALVO DPM Plan of Treatment Date Care Activity Detail Author Start: 2033 RSV Vaccine (1 - 1-d ose 75+ series) RSV Vaccine (1 - 1-dose 75+ series) [facility] Start: 12-05-2032 Colonoscopy COLONOSCOPY [facility] Start: 12-05-2032 COLORECTAL CANCER SCREENING COLORECTAL CANCER SCREENING [facility] Start: 12-05-2032 Screening for malign ant neoplasm of colon [facility] Start: 12-08-2029 Lipid panel Lipid Screening [facility] Start: 08-23-2028 Colonoscopy COLONOSCOPY [facility] Start: 08-23-2028 COLORECTAL CANCER SCREENING COLORECTAL CANCER SCREENING [facility] Start: 07-11-2028 Lipid 1996 panel - S avtar or Plasma Lipid Screening [facility] Start: 07-11-2028 Lipid panel Lipid Screening [facility] Start: 12-12-2027 Lipid 1996 panel - S avtar or Plasma Lipid Screening [facility] Start: 12-12-2027 LIPID SCREEN LIPID SCREEN [facility] Start: 12-09-2027 Diabetes Screening Diabetes Screen[facility] Start: 12-06-2027 Screening for malign ant neoplasm of colon [facility] Start: 07-11-2026 Diabetes Screening Diabetes Screenin g [facility] Start: 06-24-2026 LIPID SCREEN LIPID SCREEN [facility] Start: 01-08-2026 DIABETES SCREEN DIABETES SCREEN [facility] Start: 01-08-2026 Diabetes Screening Diabetes Screenin g [facility] Start: 12-19-2025 Screening for malign ant neoplasm of breast Mammogram Screening [facility] Start: 12-11-2025 DIABETES SCREEN DIABETES SCREEN [facility] Start: 12-10-2025 Annual PCP Team Marketing Communication Manager keegan Disease Visit Annual PCP Team Chronic Disease Visit [facility] Start: 12-10-2025 Medicare Annual Well ness Visit Medicare Annual Wellness Visit [facility] Start: 12-10-2025 Pneumococcal Vaccine : 50+ (2 of 2 - PCV) Pneumococcal Vaccine: 50+ (2 of 2 - PCV) [facility] Comment on above: Postponed from 11/04 (Declined at this time) Start: 12-08-2025 Hepatitis B surface antibody level LDL Cholesterol [facility] Start: 09-02-2025 Advance Directive Discussion Advance Directive Discussion [facility] Comment on above: Postponed from 09/03 (Declined at this time) Start: 06-11-2025 Annual PCP Team Marketing Communication Manager keegan Disease Visit Annual PCP Team Chronic Disease Visit [facility] Start: 06-11-2025 Covid-19 Vaccine () Covid-19 Vaccine () [facility] Comment on above: Postponed from 05/04 (Declined at this time) Start: 06-11-2025 Hepatitis C screening Hepatitis C Sc april [facility] Comment on above: Postponed from 05/01 (Declined at this time) Start: 06-11-2025 Shingrix Vaccine (1 of 2) Rankin grix Vaccine (1 of 2) [facility] Comment on above: Postponed from 05/01 (Declined at this time) Start: 06-11-2025 Shingrix Vaccine (2 of 2) Rankin grix Vaccine (2 of 2) [facility] Comment on above: Postponed from 12/10 (Declined at this time) Start: 06-11-2025 Urine microalbumin profile DTa P,Tdap,Td Vaccine (1 - Tdap) [facility] Comment on above: Postponed from 11/18 (Declined at this time) Start: 06-11-2025 End: 06-11-2025 Patient encounter procedure 06/11/2025 10:00 AM EDT Office Visit [facility] [address] [place], [place] [id number] Usha Gomes [facility] [address] [place], [place] [address] 6 month follow up- HTN [facility] Comment on above: 6 month follow up- H [place] Start: 05-04-2025 Influenza vaccination Influenza Vacc ine (#1) [facility] Start: 01-23-2025 Screening for malign ant neoplasm of lung Lung Cancer Screening [facility] Start: 12-19-2024 End: 12-19-2024 Patient encounter procedure 12/19/2024 9:30 AM EDT Appointment Mammogram [address] [place] [address] Encounter for screening mammogram for breast cancer [Z12.31] Mammogram Comment on above: Encounter for screen ing mammogram for breast cancer [Z12.31] Start: 12-10-2024 End: 12-10-2024 Patient encounter procedure 12/10/2024 10:20 AM EDT Office Visit [facility] [address] [facility] [place] [id number] Usha [facility]omes [facility] [address] [place] [address] Medicare Wellness [facility] Comment on above: Medicare Wellness Start: 12-09-2024 Annual PCP Team Marketing Communication Manager keegan Disease Visit Annual PCP Team Chronic Disease Visit [facility] Start: 12-09-2024 BP Controlled (<130/80) BP Controlle d (<130/80) [facility] Start: 11-25-2024 End: 02-24-2025 Basic metabolic 2000 panel - Serum or Plasma BASIC METABOLIC PANEL Lab Routine Essential hypertension Expected: 11/25/2024, Expires: 02/24/2025 [facility] Work Phone: Comment on above: Expected: 11/25/2024 , Expires: 02/24/2025 Start: 11-25-2024 End: 02-24-2025 CBC panel - Blood by Automated count COMPLETE BLOOD COUNT Lab Routine Medication management Expected: 11/25/2024, Expires: 02/24/2025 [facility] Comment on above: Expected: 11/25/2024 , Expires: 02/24/2025 Start: 11-25-2024 End: 02-24-2025 Lipid 1996 panel - Serum or Plasma LIPID PANEL, FASTING Lab Routine Mixed hyperlipidemia Expected: 11/25/2024, Expires: 02/24/2025 [facility] Comment on above: Expected: 11/25/2024 , Expires: 02/24/2025 Start: 09-10-2024 Covid-19 Vaccine ( season) Covid-19 Vaccine () [facility] Comment on above: Postponed from 05/04 (Declined at this time) Start: 09-10-2024 Pneumococcal Vaccine : 65+ (2 of 2 - PCV) Pneumococcal Vaccine: 65+ (2 of 2 - PCV) [facility] Comment on above: Postponed from 11/04 (Declined at this time) Start: 09-10-2024 RSV Vaccine (1 - 1-d ose 60+ series) RSV Vaccine (1 - 1-dose 60+ series) [facility] Comment on above: Postponed from 05/01 (Declined at this time) Start: 09-03-2024 Advance Directive Discussion Advance Directive Discussion [facility] Start: 08-10-2024 Annual PCP Team Marketing Communication Manager keegan Disease Visit Annual PCP Team Chronic Disease Visit [facility] Start: 07-11-2024 Annual PCP Team Marketing Communication Manager keegan Disease Visit Annual PCP Team Chronic Disease Visit [facility] Start: 07-11-2024 Hepatitis B surface antibody level LDL Cholesterol [facility] Start: 06-24-2024 DIABETES SCREEN DIABETES SCREEN [facility] Start: 06-11-2024 End: 06-11-2024 Patient encounter procedure 06/11/2024 10:00 AM EDT Office Visit [facility] [place] [address] [place] [address] Usha Gomes APRN.[facility] RE[facility] [address] [place] [address] 6 month follow up- labs and bone density [facility] [place] Comment on above: 6 month follow up- l abs and bone density Start: 06-09-2024 End: 09-08-2024 CBC panel - Blood by Automated count CBC Lab Routine Coronary artery disease involving [place] coronary artery of [place] heart without angina pectoris Essential hypertension Mixed hyperlipidemia Expected: 06/09/2024 (Approximate), Expires: 09/08/2024 [facility] Work Phone: Comment on above: Expected: 06/09/2024 (Approximate), Expires: 09/08/2024 Start: 06-09-2024 End: 09-08-2024 Comprehensive metabolic 2000 panel - Serum or Plasma COMP METABOLIC PANEL Lab Routine Coronary artery disease involving [place] coronary artery of [place] heart without angina pectoris Essential hypertension Mixed hyperlipidemia Expected: 06/09/2024 (Approximate), Expires: 09/08/2024 [facility] Work Phone: Comment on above: Expected: 06/09/2024 (Approximate), Expires: 09/08/2024 Start: 06-09-2024 End: 09-08-2024 Lipid 1996 panel - Serum or Plasma LIPID PANEL BASIC Lab Routine Coronary artery disease involving [place] coronary artery of [place] heart without angina pectoris Essential hypertension Mixed hyperlipidemia Expected: 06/09/2024 (Approximate), Expires: 09/08/2024 [facility] Work Phone: Comment on above: Expected: 06/09/2024 (Approximate), Expires: 09/08/2024 Start: 05-04-2024 Covid-19 Vaccine ( season) Covid-19 Vaccine () [facility] Start: 05-04-2024 Covid-19 Vaccine ( season) Covid-19 Vaccine () [facility] Start: 05-04-2024 Influenza vaccination C [facility] Start: 03-22-2024 Mammography [facility] Start: 03-22-2024 Screening for malign ant neoplasm of breast [facility] Start: 01-24-2024 End: 01-24-2024 Patient encounter procedure 01/24/2024 1:00 PM EDT Appointment [facility] [address] [facility] [place] [address] Tobacco use current [Z72.0] Cat Scan Comment on above: Tobacco use current [Z72.0] Start: 01-14-2024 End: 01-14-2024 Patient encounter procedure Pulmonary Medicine Comment on above: Right hemiparesis (H CC) [G81.91] Screening for osteop orosis [Z13.820] Start: 01-09-2024 ANNUAL PCP TEAM ART CONSERVATOR KEEGAN DISEASE VISIT ANNUAL PCP TEAM CHRONIC DISEASE VISIT [facility] Start: 12-12-2023 ANNUAL PCP TEAM ART CONSERVATOR KEEGAN DISEASE VISIT ANNUAL PCP TEAM CHRONIC DISEASE VISIT [facility] Start: 12-12-2023 COVID-19 VACCINE (4 - Booster for Pfizer series) COVID-19 VACCINE (4 - Booster for Pfizer series) [facility] Comment on above: Postponed from 10/08 (Declined at this time) Start: 12-12-2023 COVID-19 VACCINE (4 - Pfizer series) COVID-19 VACCINE (4 - Pfizer series) [facility] Comment on above: Postponed from 10/08 (Declined at this time) Start: 12-12-2023 Hepatitis B surface antibody level LDL CHOLESTEROL [facility] Start: 12-12-2023 HEPATITIS C SCREENING HEPATITIS C [facility] Comment on above: Postponed from 05/01 (Declined at this time) Start: 12-12-2023 Hepatitis C screening Hepatitis C [facility] Comment on above: Postponed from 05/01 (Declined at this time) Start: 12-12-2023 HIV SCREENING HIV SCREENING [facility] Comment on above: Postponed from 05/01 (Declined at this time) Start: 12-12-2023 HIV screening HIV Screening [facility] Comment on above: Postponed from 05/01 (Declined at this time) Start: 12-12-2023 PNEUMOCOCCAL (2 - PCV) PNEUMOCOCCAL (2 - PCV) [facility] Comment on above: Postponed from 09/08 (Declined at this time) Start: 12-12-2023 SHINGRIX VACCINE (1 of 2) RANKIN GRIX VACCINE (1 of 2) [facility] Comment on above: Postponed from 05/01 (Declined at this time) Start: 12-12-2023 Urine microalbumin profile [facility] Comment on above: Postponed from 11/18 (Declined at this time) Start: 09-03-2023 Behavioral Health Screening Behavioral Health Screening [facility] Start: 05-04-2023 Covid-19 Vaccine ( season) Covid-19 Vaccine ( season) [facility] Start: 05-04-2023 Influenza vaccination [facility] Start: 2023 Advance Directive Discussion Advance Directive Discussion [facility] Start: 2023 Bone Density Screening Bone Density Screening [facility] Start: 2023 Screening for osteoporosis Bone Dens ity Screening [facility] Start: 02-06-2023 Mammography MAMMOGRAM [facility] Start: 01-08-2023 End: 03-10-2023 Hemoglobin A1c in Blood [facility] Work Phone: Comment on above: Expected: 01/08/2023 , Expires: 03/10/2023 Start: 12-11-2022 End: 02-10-2023 25-hydroxyvitamin D3 [Mass/volume] in Serum or Plasma [facility] Work Phone: Comment on above: Expected: 12/11/2022 , Expires: 02/10/2023 Start: 12-11-2022 End: 02-10-2023 CBC W Auto Differential panel - Blood [facility] Work Phone: Comment on above: Expected: 12/11/2022 , Expires: 02/10/2023 Start: 12-11-2022 End: 02-10-2023 Comprehensive metabolic 2000 panel - Serum or Plasma [facility] Work Phone: Comment on above: Expected: 12/11/2022 , Expires: 02/10/2023 Start: 12-11-2022 End: 02-10-2023 Lipid 1996 panel - Serum or Plasma [facility] Work Phone: Comment on above: Expected: 12/11/2022 , Expires: 02/10/2023 Start: 12-04-2022 Admission procedure [facility] Start: 12-04-2022 Verification routine Wo radha [facility] Start: 12-04-2022 [facility] Start: 09-03-2022 DEPRESSION ASSESSMENT DEPRESSION ASS ESSMENT [facility] Start: 06-24-2022 Hepatitis B surface antibody level LDL CHOLESTEROL [facility] Start: 05-23-2022 ANNUAL PCP TEAM ART CONSERVATOR KEEGAN DISEASE VISIT ANNUAL PCP TEAM CHRONIC DISEASE VISIT [facility] Start: 05-04-2022 Influenza vaccination INFLUENZ A (Season Ended) [facility] Start: 12-25-2021 Lipid panel Lipid Panel [facility] Start: 12-12-2021 COVID-19 VACCINE (4 - Booster for Pfizer series) COVID-19 VACCINE (4 - Booster for Pfizer series) [facility] Start: 10-08-2021 COVID-19 VACCINE (4 - Booster for Pfizer series) COVID-19 VACCINE (4 - Booster for Pfizer series) [facility] Start: 11-04-2020 Pneumococcal Vaccine : 50+ (2 of 2 - PCV) Pneumococcal Vaccine: 50+ (2 of 2 - PCV) [facility] Start: 11-04-2020 Pneumococcal Vaccine : 65+ (2 - PCV) Pneumococcal Vaccine: 65+ (2 - PCV) [facility] Start: 11-04-2020 Pneumococcal Vaccine : 65+ Years (2 of 2 - PCV) Pneumococcal Vaccine: 65+ Years (2 of 2 - PCV) [facility] Start: 03-12-2020 Adult depression scr eening assessment DEPRESSION SCREENING [facility] Start: 06-10-2018 End: 06-10-2018 Appointment Appointment [facility] Work Phone: Start: 2018 RSV High Risk: (Elde rly (60+) or Population) (1 - Risk 60-74 years 1-dose series) RSV High Risk: (Elderly (60+) or Population) (1 - Risk 60-74 years 1-dose series) [facility] Start: 2018 RSV Vaccine (1 - 1-d ose 60+ series) RSV Vaccine (1 - 1-dose 60+ series) [facility] Start: 01-14-2018 End: 07-18-2017 *Hepatic Function Panel *Hepatic Function Panel [facility] Work Phone: Start: 01-14-2018 End: 07-18-2017 Lipid panel [AGGREGATE] *Lipid Profile CC PCP [facility] Work Phone: Start: 06-06-2017 End: 06-06-2017 Appointment Appointment [facility] Work Phone: Start: 06-06-2017 End: 06-06-2017 Follow Up Appt 1 year Follow Up Appt 1 year [facility] Work Phone: Start: 06-06-2017 End: 06-06-2017 PFM PFM [facility] Work Phone: Start: 12-25-2016 End: 07-16-2017 *Hepatic Function Panel *Hepatic Function Panel [facility] Work Phone: Start: 12-25-2016 End: 07-16-2017 Lipid panel [AGGREGATE] *Lipid Profile CC PCP [facility] Work Phone: Start: 05-24-2016 End: 06-26-2016 *Hepatic Function Panel *Hepatic Function Panel [facility] Work Phone: Start: 05-24-2016 End: 05-25-2016 Echocardiography Echocardiogram (complete) [facility] Work Phone: Start: 05-24-2016 End: 05-25-2016 Follow Up Appt 1 year Follow Up Appt 1 year [facility] Work Phone: Start: 05-24-2016 End: 06-26-2016 Lipid panel [AGGREGATE] *Lipid Profile CC [facility]CP [facility] Work Phone: Start: 05-24-2016 End: 05-25-2016 PFM PFM [facility] Work Phone: Start: 12-21-2015 End: 07-01-2016 *Hepatic Function Panel *Hepatic Function Panel [facility] Work Phone: Start: 12-21-2015 End: 07-01-2016 Lipid panel [AGGREGATE] *Lipid Profile CC [facility]CP [facility] Work Phone: Start: 05-31-2015 End: 06-21-2015 *Hepatic Function Panel *Hepatic Function Panel [facility] Work Phone: Start: 05-31-2015 End: 05-31-2015 Follow Up Appt 1 year Follow Up Appt 1 year [facility] Work Phone: Start: 05-31-2015 End: 06-21-2015 Lipid panel [AGGREGATE] *Lipid Profile CC PCP [facility] Work Phone: Start: 05-31-2015 End: 05-31-2015 PFM PFM [facility] Work Phone: Start: 05-11-2014 End: 06-22-2014 *Hepatic Function Panel *Hepatic Function Panel [facility] Work Phone: Start: 05-11-2014 End: 05-11-2014 Follow Up Appt 1 year Follow Up Appt 1 year [facility] Work Phone: Start: 05-11-2014 End: 06-22-2014 Lipid panel [AGGREGATE] *Lipid Profile CC PCP [facility] Work Phone: Start: 05-11-2014 End: 05-11-2014 PFM PFM [facility] Work Phone: Start: 11-01-2013 End: 06-22-2014 *Hepatic Function Panel *Hepatic Function Panel [facility] Work Phone: Start: 11-01-2013 End: 06-22-2014 Lipid panel [AGGREGATE] *Lipid Profile CC [facility]CP [facility] Work Phone: Start: 04-14-2013 End: 05-12-2013 *Hepatic Function Panel *Hepatic Function Panel [facility] Work Phone: Start: 04-14-2013 End: 04-14-2013 Ecg routine ecg w/least 12 lds w/i&r EKG (In office) [facility] Work Phone: Start: 04-14-2013 End: 04-14-2013 Echocardiography Echocardiogram (complete) [facility] Work Phone: Start: 04-14-2013 End: 04-14-2013 Follow Up Appt 1 year Follow Up Appt 1 year [facility] Work Phone: Start: 04-14-2013 End: 05-12-2013 Lipid panel [AGGREGATE] *Lipid Profile CC PCP [facility] Work Phone: Start: 04-14-2013 End: 04-14-2013 PFM PFM [facility] Work Phone: Start: 11-01-2012 End: 05-12-2013 *Hepatic Function Panel *Hepatic Function Panel [facility] Work Phone: Start: 11-01-2012 End: 05-12-2013 Lipid panel [AGGREGATE] *Lipid Profile [facility] Work Phone: Start: 09-08-2012 PNEUMOCOCCAL (2 - PCV) PNEUMOCOCCAL (2 - PCV) [facility] Start: 09-08-2012 Pneumococcal Vaccine : 65+ (2 - PCV) Pneumococcal Vaccine: 65+ (2 - PCV) [facility] Start: 05-28-2012 End: 05-28-2012 *Hepatic Function Panel *Hepatic Function Panel [facility] Work Phone: Start: 05-28-2012 End: 05-28-2012 Follow Up Appt 1 year Follow Up Appt 1 year [facility] Work Phone: Start: 05-28-2012 End: 06-02-2012 Lipid panel [AGGREGATE] *Lipid Profile [facility] Work Phone: Start: 05-08-2012 End: 05-28-2012 *Hepatic Function Panel *Hepatic Function Panel [facility] Work Phone: Start: 05-08-2012 End: 05-28-2012 Lipid panel [AGGREGATE] *Lipid Profile [facility] Work Phone: Start: 11-27-2011 End: 11-27-2011 Follow Up Appt 6 months Follow Up Appt 6 months [facility] Work Phone: Start: 2008 Influenza vaccination LUNG CANCER SC REENING [facility] Start: 2008 Screening for malign ant neoplasm of lung Lung Cancer Screening [facility] Start: 2008 SHINGRIX VACCINE (1 of 2) RANKIN GRIX VACCINE (1 of 2) [facility] Start: 2008 Zoster Vaccines (1 of 2) Zoste r Vaccines (1 of 2) [facility] Start: 11-19-2007 DTaP/Tdap/Td Vaccine s (1 - Tdap) DTaP/Tdap/Td Vaccines (1 - Tdap) [facility] Start: 11-19-2007 Urine microalbumin profile [facility] Start: 2003 COLOGUARD (FIT-DNA) COLOGUARD (FIT-D NA) [facility] Start: [address] COLONOGRAPHY [facility] Start: 2003 FECAL OCCULT BLOOD FECAL OCCULT BLOO D [facility] Start: 2003 Screening for malign ant neoplasm of colon [facility] Start: 2003 SIGMOIDOSCOPY SIGMOIDOSCOPY [facility] Start: 1976 Anxiety Screening Anxiety Screening [facility] Start: 1976 BP CONTROLLED (<130/80) BP CONTROLLE D (<130/80) [facility] Start: 1976 Depression Screening Depression Scre ening [facility] Start: 1976 HEPATITIS C SCREENING HEPATITIS C [facility] Start: 1976 Hepatitis C screening Hepatitis C [facility] Start: 1976 HIV SCREENING HIV SCREENING [facility] Start: 1976 HIV screening HIV Screening [facility] Start: 1959 MMR Vaccines (1 of 1 - Standard series) MMR Vaccines (1 of 1 - Standard series) [facility] Start: 1960 Screening for malign ant neoplasm of colon [facility] Start: 1960 Yearly Adult Physical Yearly Adult P hysical [facility] End: 01-08-2025 BD DXA TRABECULAR BONE SCORE (TBS) BD DXA TRABECULAR BONE SCORE (TBS) Radiology Routine Screening for osteoporosis Asymptomatic menopause 1 Occurrences starting 12/10/2023 until 01/08/2025 [facility] Work Phone: Comment on above: 1 Occurrences starti ng 12/10/2023 until 01/08/2025 End: 02-12-2025 CT Chest for screening WO contrast CT LUNG SCREEN WO IVCON Radiology Routine Tobacco use current 1 Occurrences starting 01/14/2024 until 02/12/2025 [facility] Work Phone: Comment on above: 1 Occurrences starti ng 01/14/2024 until 02/12/2025 End: 02-23-2025 CT Chest for screening WO contrast CT LUNG SCREEN WO IVCON Radiology Routine Tobacco use current 1 Occurrences starting 01/25/2024 until 02/23/2025 [facility] Work Phone: Comment on above: 1 Occurrences starti ng 01/25/2024 until 02/23/2025 End: 04-04-2026 CT Chest for screening WO contrast CT LUNG SCREEN WO IVCON Radiology Routine Cigarette smoker 1 Occurrences starting 03/05/2025 until 04/04/2026 [facility] Work Phone: Comment on above: 1 Occurrences starti ng 03/05/2025 until 04/04/2026 End: 05-30-2025 DBT Breast - bilateral screening TRINA SCREENING W MIHIR Radiology Routine Encounter for screening mammogram for breast cancer 1 Occurrences starting 04/30/2024 until 05/30/2025 [facility] Work Phone: Comment on above: 1 Occurrences starti ng 04/30/2024 until 05/30/2025 DBT Breast - bilater al screening TRINA SCREENING W MIHIR Radiology Routine Encounter for screening mammogram for breast cancer 12/19/2024 9:30 AM EDT [facility] Work Phone: End: 01-08-2025 DXA Skeletal system.axial Views for bone density DXA-AXIAL SKELETON Radiology Routine Screening for osteoporosis Asymptomatic menopause 1 Occurrences starting 12/10/2023 until 01/08/2025 [facility] Work Phone: Comment on above: 1 Occurrences starti ng 12/10/2023 until 01/08/2025 Patient Education HYPERLIPIDEMIA , HYPERTENSION%2C%20AMBUL ATORY%20CARE, CHOLESTEROL%20AND%20YOU R%20HEALTH [facility] Work Phone: Patient referral [facility] Work Phone: [facility] Immunizations Immunization Date Immunization Notes Care Provider Kofi cherry 06-03-2024 influenza (HD-IIV4) vaccine, age 65+ yr, high dose, quadrivalent, PF (FLUZONE HIGH-DOSE) Usha Gomes [facility] Work Phone: [facility] 06-03-2024 influenza virus vacc ine, unspecified formulation Sharon Garrison [facility] Work Phone: [facility] 11-05-2019 pneumococcal polysaccharide vaccine, 23 valent Usha Gomes [facility] Work Phone: [facility] 11-05-[address] Darrel Bullard Work Phone: [facility] Work Phone: 11-05-2019 pneumococcal vaccine , unspecified formulation [facility] 10-16-2019 zoster vaccine recombinant Usha Gomes [facility] Work Phone: [facility] 06-03-2019 influenza, injectabl e, quadrivalent, preservative free Dr. Shira Bullard Work Phone: [facility] 06-03-2019 influenza, seasonal, injectable Dr. Shira Bullard Work Phone: [facility] 06-03-2019 influenza virus vacc ine, unspecified formulation Usha Gomes [facility] Work Phone: [facility] 05-24-2018 influenza, injectabl e, quadrivalent, contains preservative [facility] Work Phone: 05-18-2016 influenza virus vacc ine, whole virus [facility] 09-08-2011 pneumococcal polysaccharide vaccine, 23 valent [facility] Work Phone: 07-04-2011 influenza virus vacc ine, unspecified formulation [facility] Work Phone: 11-18-2007 tetanus and diphther ia toxoids, adsorbed, preservative free, for adult use (2 Lf of tetanus toxoid and 2 Lf of diphtheria toxoid) [facility] Payers Date Payer Category Payer Private Health Insurance [facility] [id number] 2024 Self-pay [id number] 2023 Medicare MEDICARE [id number] 2023 Medicare [id number] 2021 Blue Cross Blue Shield BLUE CARD PPO OOS [id number] [facility] [id number] 2021 Unknown ANTHEM BLUE CARD PPO OOS [id number] 2021-Present [phone] [address] [place] [address] PPO [id number] 2021 Unknown ANTHEM BLUE CARD PPO OOS [id number] 2021-Present [phone] [address] [place] [address] PPO [id number] 2020 Unknown HEALTHSMART PREF ERRED NETWORK HEALTHSMART PREFERRED GENERIC [id number] 2020-2021 [address] [place] [address] PPO [id number] 2006 Unknown SELF PAY INSURANCE [id number] 2006 Unknown [id number] 1958 Unknown [id number] .2. 1958 Unknown [id number] .2. 1958 Unknown [id number] .2. 1958 Unknown [id number] .[id number] .2. 1958 Unknown [id number] .[id number] Unknown [id number] Unknown [id number] Unknown [id number] .2.462 Unknown [id number] .2.462 Unknown [id number] .2.462 Unknown [id number] .2.462 Unknown [id number] [id number] .2.462 Unknown [id number] .2.462 Unknown [id number] .2.462 Social History Date Type Detail Facility Start: 11-21-2021 End: 07-03-2023 Tobacco smoking status VTIS Unknown if ever smoked [facility] Start: 04-13-2020 None [facility] Start: 04-13-2020 Spouse/ Signif icant Other [facility] Start: 04-14-2020 Cigarettes [facility] Start: 1960 Sex Assigned At Female [facility] Start: 10-08-2012 End: 01-14-2024 Tobacco smoking status VTIS Smokes tobacco daily [facility] Work Phone: History of tobacco use Cigarette Smoker C [facility] Start: 05-23-2021 End: 12-10-2024 Alcohol intake Current non-drinker of alcohol (finding) [facility] Start: 1960 Sex Assigned At Not on file C [facility] Start: 01-27-2022 End: 06-30-2024 Exposure to SARS-CoV-2 (event) Not sure [facility] Start: 04-18-2022 Tobacco smoking status Heavy t obacco smoker (finding) [facility] Start: 10-08-2012 End: 01-08-2023 Cigarettes smoked current (pack per day) - Reported 1 [facility] Work Phone: Start: 10-08-2012 End: 01-14-2024 Tobacco use and exposure Smokeless tobacco non-user [facility] Work Phone: Start: 01-08-2023 Tobacco Comment since age 14 [facility] Start: 01-08-2023 End: 09-10-2023 Tobacco use panel [facility] Work Phone: Adult Depression Screening Assessment 0 [facility] Work Phone: Medical Equipment Procedure Code Equipment Code Equipment Origin al Text Equipment Identifier Dates ORIF, hip, using Gamma nail GAMMA 3 SYSTEM TROCH NAIL FDA Start: 10-27-2019 ORIF, hip, using Gamma nail LOCKING SCREW FDA Start: 10-27-2019 ORIF, hip, using Gamma nail LOCKING SCREW FULLY THREADED FDA Start: 10-27-2019 ORIF, hip, using Gamma nail GAMMA 3 SYSTEM TROCH NAIL FDA Start: 10-27-2019 ORIF, hip, using Gamma nail LOCKING SCREW FDA Start: 10-27-2019 ORIF, hip, using Gamma nail LOCKING SCREW FULLY THREADED FDA Start: 10-27-2019 ORIF, hip, using Gamma nail GAMMA 3 SYSTEM TROCH NAIL FDA Start: 10-27-2019 ORIF, hip, using Gamma nail LOCKING SCREW FDA Start: 10-27-2019 ORIF, hip, using Gamma nail LOCKING SCREW FULLY THREADED FDA Start: 10-27-2019 ORIF, hip, using Gamma nail GAMMA 3 SYSTEM TROCH NAIL FDA Start: 10-27-2019 ORIF, hip, using Gamma nail LOCKING SCREW FDA Start: 10-27-2019 ORIF, hip, using Gamma nail LOCKING SCREW FULLY THREADED FDA Start: 10-27-2019 ORIF, hip, using Gamma nail GAMMA 3 SYSTEM TROCH NAIL FDA Start: 10-27-2019 ORIF, hip, using Gamma nail LOCKING SCREW FDA Start: 10-27-2019 ORIF, hip, using Gamma nail LOCKING SCREW FULLY THREADED FDA Start: 10-27-2019 Functional Status Date Assessment Result Facility 09-01-2022 Functional Status NPO Status ice chips and sips taken [facility] 09-01-2022 Functional Status [facility] 04-28-2022 Functional Status Awake [facility] 04-28-2022 Functional Status Maintained [facility] 05-06-2014 Are you deaf, or do you have serious difficulty hearing No 05/06/2014 10:58 AM Linda Oliveira MA [facility] 05-06-2014 Are you blind, or do you have serious difficulty seeing, even when wearing glasses No 05/06/2014 10:58 AM Linda Oliveira MA [facility] 05-06-2014 Do you have serious difficulty walking or climbing stairs No 05/06/2014 10:58 AM Linda Oliveira MA [facility] 05-06-2014 Do you have difficul ty dressing or bathing No 05/06/2014 10:58 AM Linda Oliveira MA [facility] 05-06-2014 Because of a physica l, mental, or emotional condition, do you have difficulty doing errands alone such as visiting a physician's office or shopping No 05/06/2014 10:58 AM Linda Oliveira MA [facility] Mental Status Date Assessment Result Facility 09-01-2022 Mental Status Orientation Oriented x 4 [facility] 09-01-2022 Mental Status [facility] 04-28-2022 Mental Status Oriented x 4 [facility] 04-28-2022 Mental Status [facility] 05-06-2014 Because of a physica l, mental, or emotional condition, do you have serious difficulty concentrating, remembering, or making decisions No 05/06/2014 10:58 AM Linda Oliveira MA [facility] Clinical Notes 08-14-2005 to 12-19-2024 Bailey Celaya Mammo [facility] - 12/19/2024 9:30 AM EDTPatient Usha Hughes APRN.CAMP[facility] REP - 12/10/2024 10:35 AM Usha Williamson APRN.CAMP[facility] REP - 06/11/2024 10:02 AM EDTPatient Instructions Note Date & Type Note Facility 12-19-2024 History of Present illness Narrative Radiology Service Progress Note PATIENT NAME: Naheed Lynch DATE OF SERVICE: December 19, 2024 TIME: 9:33 AM PATIENT IDENTITY VERIFICATION COMPLETED USING TWO (2) IDENTIFIERS: Name and Date of confirmed by patient verbally. FALL SCREENING: Has the patient had 2 falls in the last year or 1 fall with injury or currently using an Ambulatory Assistive Device (Walker, Cane, Wheelchair, Crutches, etc.)? No PATIENT GENDER DATA: Assigned female at . status: : No status: NO. PATIENT RELEVANT IMPLANT DATA REVIEWED: Not Applicable PATIENT PRESENTS WITH AN IMPLANTABLE OR ATTACHED BATTERY ASSEMBLER PLASTIC: No RADIOLOGY DEPARTMENT: Mammography PERIPHERAL IV DATA: Not applicable SIGNED BY: Lazaro Guerrero December 19, 2024 9:33 AM documented in this encounter [facility] 12-19-2024 Note HNO ID: [id number] Author: BAILEY CELAYA Mammo Tech Service: ? Author Type: [employer] Type: Progress Notes Filed: 12/19/2024 09:34 Note Text: Radiology Service Progress Note PATIENT NAME: Naheed Lynch DATE OF SERVICE: December 19, 2024 TIME: 9:33 AM PATIENT IDENTITY VERIFICATION COMPLETED USING TWO (2) IDENTIFIERS: Name and Date of confirmed by patient verbally. FALL SCREENING: Has the patient had 2 falls in the last year or 1 fall with injury or currently using an Ambulatory Assistive Device (Walker, Cane, Wheelchair, Crutches, etc.)? No PATIENT GENDER DATA: Assigned female at . status: : No status: NO. PATIENT RELEVANT IMPLANT DATA REVIEWED: Not Applicable PATIENT PRESENTS WITH AN IMPLANTABLE OR ATTACHED BATTERY ASSEMBLER PLASTIC: No RADIOLOGY DEPARTMENT: Mammography PERIPHERAL IV DATA: Not applicable SIGNED BY: Lazaro Guerrero December 19, 2024 9:[address] [facility] 12-10-2024 Usha Hernandez APRN.CNP - 12/10/2024 10:39 AM EDT Screening schedule The following prevention plan is recommended: BP Controlled (<130/80) Never done Mammogram Screening due on 03/22/2024 WHAT YOU CAN DO TO PREVENT FALLS Many falls can be prevented. By making some changes, you can lower your chances of falling. Four things YOU can do to prevent falls for you* and your caregiver 1. Begin a regular exercise program Exercise is one of the most important ways to lower your chances of falling. It makes you stronger and helps you feel better. Exercises that improve balance and coordination (like Denis Chi) are the most helpful. Lack of exercise leads to weakness and increases your chances of falling. Ask your doctor or health care provider about the best type of exercise program for you. 2. Have your health care provider review your medicines Have your doctor or pharmacist review all the medicines you take, even xtog-ltz-esekdlf medicines. As you get older, the way medicines work in your body can change. Some medicines, or combinations of medicines, can make you sleepy or dizzy and can cause you to fall. 3. Have your vision checked Have your eyes checked by an eye doctor at least once a year. You may be wearing the wrong glasses or have a condition like glaucoma or cataracts that limits your vision. Poor vision can increase your chances of falling. 4. Make your home safer About half of all falls happen at home. To make your home safer: Remove things you can trip over (like papers, books, clothes, and shoes) from stairs and places where you walk. Remove small throw rugs or use double-sided tape to keep the rugs from slipping. Keep items you use often in cabinets you can reach easily without using a step stool. Have grab bars put in next to your toilet and in the tub or shower. Use non-slip mats in the bathtub and on shower floors. Improve the lighting in your home. As you get older, you need brighter lights to see well. Hang light-weight curtains or shades to reduce glare. Have handrails and lights put in on all staircases. Wear shoes both inside and outside the house. Avoid going barefoot or wearing slippers. For more information, contact: Centers for Disease Control and Prevention www.cdc.gov/injury * This information may not apply if you have certain medical conditions. documented in this encounter [facility] 12-10-2024 Note HNO ID: [id number] Author: USHA GOMES APRN.CJ Service: ? Author Type: Nurse Practitioner Type: Progress Notes Filed: 12/10/2024 12:59 Note Text: Naheed Lynch is a 64 year old female here for a Medicare wellness visit. Medicare Health Risk Assessment General Health Good Exercise: Minutes/Day Currently not exercising Exercise: Days/Week Currently not exercising Alcohol: Daily Use Does not drink alcohol Alcohol: Drinks/Day Does not drink alcohol Alcohol: 6 or more drinks Does not drink alcohol Feel off balance Not with balance but clumsy after breaking left hip previously Concerns: Teeth/Dentures Denies Concerns: Sexual function Denies Troubled by feelings Denies Frequency: Eating healthy diet Most of the time ADLs requiring help Denies Safety precautions in home/vehicle Always wears seatbelt in car, steps have handrails, floors are clutter free, bathrooms do not have grab bars Smoke, vape, chews tobacco Smokes 1 ppd Difficulty hearing Has hearing aides but does not often wear them since she is home alone often Difficulty seeing Denies - wears glasses Current Providers Specialists: I have reviewed specialist-related care of the patient in the medical record. [facility]ometry - [facility] - goes yearly Cardiology - [facility] Gastroenterology - Dr. Barrera Medical/Family history review Reviewed and updated problem list, medical/surgical/family/social history, medications, and allergies. Opioid use review Opioid Medications (last 90 days) No data to display Anxiety/Depression screening PHQ2 is 0 Bharat 2 is 0 Recommendation: no further intervention at this time Cognitive screening Mini Cog Score: 5 Cognitive screening reviewed and No further action needed (score 3-5). Functional Observation Was the patient's Timed Up AND Go test unsteady or >= 12 seconds? No Advance Care Planning Patient did not wish or was not able to name a surrogate decision maker or provide an advance care plan Measurements BP 122/80 Pulse 96 Ht 173 cm (5' 8.11) Wt 69.4 kg (153 lb) SpO2 96% BMI 23.19 kg/m? Vision Screening: Follows with optometry/ophthalmology Assessment/Plan Medicare annual wellness visit, subsequent (Z00.00) - Counseled on healthy diet and regular exercise - Fall avoidance information provided - Personalized prevention plan provided - Smoking cessation encouraged; discussed risks to health and quitting strategies. Patient is not ready to quit ASSESSMENT/PLAN: 1. Medicare annual wellness visit, subsequent - ICD9: V70.0, ICD10: Z00.00 (primary diagnosis) - Counseled on healthy diet and regular exercise - Breast cancer screening - ordered mammogram - Smoking cessation encouraged; discussed health risks and quitting strategies. Patient is not ready to quit - Follow up for annual exam in one year 2. Tobacco use disorder - ICD9: 305.1, ICD10: F17.200 - Cessation encouraged. - Physiologic and physical aspects of tobacco addiction as well as strategies for quitting were discussed. - Counseling was given focusing on the harmful effects of this addiction especially given the patient's medical condition(s) which will be worsened because of the chemicals in tobacco. Usha Gomes, KEV.[facility] 12-10-2024 History of Present illness Narrative Images from the original note were not included. Naheed Lynch is a 64 year old female here for a Medicare wellness visit. Medicare Health Risk Assessment General Health Good Exercise: Minutes/Day Currently not exercising Exercise: Days/Week Currently not exercising Alcohol: Daily Use Does not drink alcohol Alcohol: Drinks/Day Does not drink alcohol Alcohol: 6 or more drinks Does not drink alcohol Feel off balance Not with balance but clumsy after breaking left hip previously Concerns: Teeth/Dentures Denies Concerns: Sexual function Denies Troubled by feelings Denies Frequency: Eating healthy diet Most of the time ADLs requiring help Denies Safety precautions in home/vehicle Always wears seatbelt in car, steps have handrails, floors are clutter free, bathrooms do not have grab bars Smoke, vape, chews tobacco Smokes 1 ppd Difficulty hearing Has hearing aides but does not often wear them since she is home alone often Difficulty seeing Denies - wears glasses Current Providers Specialists: I have reviewed specialist-related care of the patient in the medical record. [facility] - [facility] - goes yearly Cardiology - [facility] Gastroenterology - Dr. Barrera Medical/Family history review Reviewed and updated problem list, medical/surgical/family/social history, medications, and allergies. Opioid use review Opioid Medications (last 90 days) No data to display Anxiety/Depression screening PHQ2 is 0 Bharat 2 is 0 Recommendation: no further intervention at this time Cognitive screening Mini Cog Score: 5 Cognitive screening reviewed and No further action needed (score 3-5). Functional Observation Was the patient's Timed Up & Go test unsteady or >= 12 seconds? No Advance Care Planning Patient did not wish or was not able to name a surrogate decision maker or provide an advance care plan Measurements BP 122/80 Pulse 96 Ht 173 cm (5' 8.11) Wt 69.4 kg (153 lb) SpO2 96% BMI 23.19 kg/m Vision Screening: Follows with optometry/ophthalmology Assessment/Plan Medicare annual wellness visit, subsequent (Z00.) - Counseled on healthy diet and regular exercise - Fall avoidance information provided - Personalized prevention plan provided - Smoking cessation encouraged; discussed risks to health and quitting strategies. Patient is not ready to quit ASSESSMENT/PLAN: 1. Medicare annual wellness visit, subsequent - ICD9: V70.0, ICD10: Z00.00 (primary diagnosis) - Counseled on healthy diet and regular exercise - Breast cancer screening - ordered mammogram - Smoking cessation encouraged; discussed health risks and quitting strategies. Patient is not ready to quit - Follow up for annual exam in one year 2. Tobacco use disorder - ICD9: 305.1, ICD10: F17.200 - Cessation encouraged. - Physiologic and physical aspects of tobacco addiction as well as strategies for quitting were discussed. - Counseling was given focusing on the harmful effects of this addiction especially given the patient's medical condition(s) which will be worsened because of the chemicals in tobacco. Usha Gomes APRN.CNP documented in this encounter [facility] 11-25-2024 Note Patient Outreach (IN TMMN) NAHEED LYNCH ([id number]) 1960 F Date Time Provider Department 11/25/24 SHIRA BULLARD During your visit today, we recorded the following information about you: Allergies As of Date: 11/25/2024 Noted Allergy Reaction CODEINE 07/07/2005 8 - GI Upset ULTRACET (TRAMADOL-ACETAMINOPHEN) 10/09/2005 8 - GI Upset Date Reviewed: 06/11/2024 Reviewed by: Fela Wright MA - Fully Assessed Visit Diagnoses:Essential hypertension [I10] Mixed hyperlipidemia [E78.2] Medication management [Z79.899] Order(s):BASIC METABOLIC PANEL [SQBMP] Order #: [id number] FUTURE LIPID PANEL, FASTING [SQLIPB] Order #: [id number] FUTURE COMPLETE BLOOD COUNT [SQCBC] Order #: [id number] FUTURE Prescriptions as of 11/28/2024 - escitalopram oxalate (LEXAPRO) 20 mg tablet Take 1 tablet by mouth once daily. Appointment needed for further refills. - hydroCHLOROthiazide 25 mg tablet Take 1 tablet by mouth every afternoon. - amLODIPine (NORVASC) 5 mg tablet Take 5 mg by mouth once daily. - hydrOXYzine HCl (ATARAX) 25 mg tablet take 1 tablet by mouth three times a day as needed for anxiety - MAGNESIUM ORAL Take by mouth. - ramipril (ALTACE) 10 mg capsule Take 2 capsules by mouth once daily. - Cholecalciferol, Vitamin D3, 25 mcg (1,000 unit) cap Take 1 capsule by mouth once daily. - atorvastatin (LIPITOR) 80 mg tablet Take 80 mg by mouth once daily. - clopidogrel (PLAVIX) 75 mg tablet Take 75 mg by mouth once daily. - aspirin(ADULT LOW DOSE ASPIRIN 81 MG TAB, DELAYED RELEASE) Take one(1) tablet daily. Problem List As Of Date 11/25/2024 Noted Resolved Essential hypertension [I10] SHOULDER REGION DIS NEC right [M25.819] 08/14/2005 ROTATOR CUFF SYND NOSright [M71.9, M67.919] 08/14/2005 LATERAL EPICONDYLITIS right [M77.10] 08/14/2005 05/16/2006 SUPERIOR GLENOID LABRUM LES [S43.439A] 05/16/2006 BICIPITAL TENOSYNOVITIS [M75.20] 05/16/2006 SURGERY FOLLOWUP NOS [Z09] 06/11/2006 TOBACCO USE DISORDER [F17.200] 12/30/2007 Osteopenia [M85.80] 02/15/2012 Optic neuritis [H46.9] 10/08/2012 Coronary artery disease involving [place] jason*12/05/2017 Mixed hyperlipidemia [E78.2] 12/05/2017 Anxiety and depression [F41.9, F32.A] 06/11/2024 Encounter Status:Closed by EPIC, PRODUSER on 11/28/[address] 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 Pt reports urgency for BM that started yesterday morning, barely making it; describes seeing large blood clots and very little stool in toilet. States that the hematochezia continued throughout day with lessening urgency but increasing cramping and pressure to right upper and lower side of abdomen. States that applying manual pressure to right side relieved some of the pain, no rebound tenderness, no bleeding or bruising around abdomen. States she passes gas and will leak blood from her rectum. She reports being an easy bruiser due to clopidogrel and aspirin daily for CAD s/p PCI, HLD, HTN, AV valve disease. She denies nausea, difficulty swallowing, heartburn, constipation, fever, chills. 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 Reports daily BM with complete evacuation prior to this bleeding episode by increasing fiber and fluid intake. ROS Const Constitutional: Positive for fatigue and decreased energy; No fever(s), weight change or abnormal sleep pattern Eyes Eyes: No change in vision ENT ENT: No abnormal hearing or difficulty swallowing Resp Respiratory: No cough Gastro GI: Positive for abdominal pain, bloating, change in bowel habits, excessive flatus, incontinent of stools and Blood in stool; No belching, change in stool character, coffee ground emesis, constipation, cramping, diarrhea, heartburn, difficulty swallowing, feeling full early, Vomiting blood/hematemesis, loose stools, Black,tarry stools, nausea/dyspepsia, pain with swallowing, vomiting or other Genitourinary-Female: No difficulty urinating Musc Musculoskeletal: Positive for restless legs; No joint pain Skin Skin: No yellowing of the eye or itchy eyes Neuro Neurology: Positive for restless legs; No abnormal hearing Psych Psychiatric: No abnormal sleep pattern, Positive for anxiety and No depression Endo Endocrine: Positive for fatigue; No change in body appearance, cold intolerance, heat intolerance or weight change Aller/Imm Allergy/Immunologic: No food intolerance or itchy eyes Mikey/Lymp Hematologic/Lymphatic: Positive for easy bleeding and easy bruising Exam Const General: cooperative and acute distress mild Nutritional Appearance: well nourished Orientation: alert [facility] Head: normal to inspection Ears: hearing grossly normal bilaterally Nose: external nose normal Face and sinus: normal facial exam and face symmetric Eyes General: appearance normal, both eyes and all related structures Neck Neck: normal visual inspection and full ROM Neck mass: No Chest Chest palpation inspection: normal inspection of the chest Resp Effort Inspection: normal respiratory effort, able to speak in complete sentences and symmetric chest movement GI Inspection: normal to inspection Auscultation: hyperactive bowel sounds Palpation: soft, no hepatosplenomegaly and other Other: Negative psoas and obturator signs, no rebound tenderness. Skin General: no rashes or lesions noted and ecchymosis (scattered small areas) Neuro General: patient alert, patient awake and patient oriented x3 Extrem General: normal to inspection and full ROM Psych Appearance: grossly normal and well kempt Mental Status: mental status grossly normal Mood: congruent mood Affect: normal affect Speech and Movement: speech and movement normal Attitude: cooperative Thought Process: normal Judgment: judgment good Assessment and Plan Assessment and Plan (1) GI bleed: Status: Acute Qualifiers: GI bleed type/associated pathology: unspecified gastrointestinal hemorrhage type Qualified Code(s): K92.2 - Gastrointestinal hemorrhage, unspecified Plan: NAHEED LYNCH, is a 64 F who presents to the office today for follow-up on constipation and new complaints of blood during BM. Pt reports urgency for BM that started yesterday morning, barely making it; describes seeing large blood clots and very little stool in toilet. States that the hematochezia continued throughout day with lessening urgency but increasing cramping and pressure to right upper and lower side of abdomen. States that applying manual pressure to right side relieved some of the pain, no rebound tenderness, no bleeding or bruising around abdomen. Differential (more content not included)... [facility] 06-11-2024 Note HNO ID: [id number] Author: USHA GOMES APRN.CAMPUS REP Service: ? Author Type: Nurse Practitioner Type: Progress Notes Filed: 06/11/2024 10:25 Note Text: CC: Patient presents with: Recheck: 6 month follow up HPI Naheed Lynch is a 64 year old female who presents today for routine follow up. HTN, CAD w/ Stent many years ago: Ms. Lynch indicates that she is feeling well and denies any symptoms referable to elevated blood pressure. Specifically denies headache, chest pain, palpitations, dyspnea, and peripheral edema. Patient denies any side effects of her medication(s) and is compliant with their regimen. She does check BP's away from this office with average BP's in the 120/60s range. Naheed works out regularly 7 times per week with walking [place] her [place]. She watches her diet for sodium, low fat and low cholesterol most of the time. Last 3 Encounter BP Readings: Date: BP: 06/11/2024 132/62 01/14/2024 130/78 01/07/2024 154/75[bp average[ Anxiety and Depression: Feels well controlled on current treatment Sleep: is described as normal Alcohol use: does not drink any alcohol Drug use: No Appetite: good Suicidal Thoughts: No suicidal ideation, intent or plan Support: Comes from multiple sources including family REVIEW OF SYSTEMS See HPI PAST MEDICAL HISTORY Diagnosis Date Bilateral optic neuritis Chronic interstitial cystitis Coronary artery disease 2007 one stent placed Dyspareunia Irritable bowel syndrome Mental disorder Other disorder of menstruation and other abnormal bleeding from female genital tract Unspecified essential hypertension Essential hypertension Uterovaginal prolapse, complete PAST SURGICAL HISTORY Procedure Laterality Date COLONOSCOPY FLX DX W/COLLJ SPEC WHEN PFRMD 08/23/2018 Colonoscopy ESOPHAGOGASTRODUODENOSCOPY TRANSORAL DIAGNOSTIC 04/25/2019 EGD HEART CATHETERIZATION Left 2007 left circumflex stent HEART SURGERY HX LIG/TRNSXJ FLP TUBE ABDL/VAG APPR UNI/BI Tubal ligation PAST SURGICAL HISTORY OF 06/07/2006 right shoulder arthroscopy (biceps tenodesis and SLAP repair) PAST SURGICAL HISTORY OF 09/07/2011 neck surgery plate put in C 5-7 TONSILLECTOMY PRIMARY/SECONDARY Tonsillectomy VAGINAL HYSTERECTOMY UTERUS 250 GM/< Hysterectomy, vaginal ALLERGIES Codeine and Ultracet [Tramadol-Acetaminophen] MEDICATIONS hydrOXYzine HCl (ATARAX) 25 mg tablet take 1 tablet by mouth three times a day as needed for anxiety MAGNESIUM ORAL Take by mouth. amLODIPine (NORVASC) 10 mg tablet Take 1 tablet by mouth once daily. escitalopram oxalate (LEXAPRO) 20 mg tablet Take 1 tablet by mouth once daily. Appointment needed for further refills. ramipril (ALTACE) 10 mg capsule Take 2 capsules by mouth once daily. Cholecalciferol, Vitamin D3, 25 mcg (1,000 unit) cap Take 1 capsule by mouth once daily. atorvastatin (LIPITOR) 80 mg tablet Take 80 mg by mouth once daily. clopidogrel (PLAVIX) 75 mg tablet Take 75 mg by mouth once daily. aspirin(ADULT LOW DOSE ASPIRIN 81 MG TAB, DELAYED RELEASE) Take one(1) tablet daily. FAMILY HISTORY Problem Relation Age of Onset Heart Mother MD Coronary Artery Disease Mother Heart Father MD Coronary Artery Disease Father Heart Maternal Grandmother MD Heart Paternal Grandmother MD Breast Cancer Paternal Grandmother sinus cancer Heart Paternal Grandfather MD Hypertension Brother Ischemic Heart Disease Brother age 42 MD, etoh, tob and drug use Multiple Sclerosis No Family History Coronary Artery Disease Brother Social History Tobacco Use Smoking status: Every Day Current packs/day: 1.00 Average packs/day: 1 pack/day for 50.0 years (50.0 ttl pk-yrs) Types: Cigarettes Smokeless tobacco: Never Tobacco comments: since age 14 Substance Use Topics Alcohol use: No Drug use: No PHYSICAL EXAM BP 132/62 Pulse (!) 56 Resp 16 Wt 68 kg (150 lb) SpO2 97% BMI 23.15 kg/m? General Appearance: well appearing, in no acute distress, alert Pysch: mood and affect broad and appropriate Eyes: conjunctiva pink and moist, no icterus, sclera white, non-injected Lungs: Lungs clear to auscultation. No wheezing, rhonchi, rales. Heart: RRR with grade 3 systolic murmur, gallop, or rubs. No ectopy Health maintenance reviewed with patient: Depression Screening Never done Anxiety Screening Never done Hepatitis C Screening Never done BP Controlled (<130/80) Never done DTaP,Tdap,Td Vaccine(1 - Tdap) due on 11/19/2007 Shingrix Vaccine(1 of 2) Never done Mammogram Screening due on 03/22/2024 Covid-19 Vaccine( - ) due on 05/04/2024 LDL Cholesterol due on 07/11/2024 Pneumococcal Vaccine: 65+(2 of 2 - PCV) due on 09/10/2024 Lung Cancer Screening due on 01/23/2025 Annual PCP Team Chronic Disease Visit due on 06/11/2025 Diabetes Screening due on 07/11/2026 Lipid Screening due on 07/11/2028 Colorectal Cancer Screening due on 12/05/2032 R (more content not included)... [facility] 06-11-2024 History of Present illness Narrative CC: Patient presents with: Recheck: 6 month follow up HPI Naheed Lynch is a 64 year old female who presents today for routine follow up. HTN, CAD w/ Stent many years ago: Ms. Lynch indicates that she is feeling well and denies any symptoms referable to elevated blood pressure. Specifically denies headache, chest pain, palpitations, dyspnea, and peripheral edema. Patient denies any side effects of her medication(s) and is compliant with their regimen. She does check BP's away from this office with average BP's in the 120/60s range. Naheed works out regularly 7 times per week with walking [place] her [place]. She watches her diet for sodium, low fat and low cholesterol most of the time. Last 3 Encounter BP Readings: Date: BP: 06/11/2024 132/62 01/14/2024 130/78 01/07/2024 154/75[bp average[ Anxiety and Depression: Feels well controlled on current treatment Sleep: is described as normal Alcohol use: does not drink any alcohol Drug use: No Appetite: good Suicidal Thoughts: No suicidal ideation, intent or plan Support: Comes from multiple sources including family REVIEW OF SYSTEMS See HPI PAST MEDICAL HISTORY Diagnosis Date Bilateral optic neuritis Chronic interstitial cystitis Coronary artery disease 2007 one stent placed Dyspareunia Irritable bowel syndrome Mental disorder Other disorder of menstruation and other abnormal bleeding from female genital tract Unspecified essential hypertension Essential hypertension Uterovaginal prolapse, complete PAST SURGICAL HISTORY Procedure Laterality Date COLONOSCOPY FLX DX W/COLLJ SPEC WHEN PFRMD 08/23/2018 Colonoscopy ESOPHAGOGASTRODUODENOSCOPY TRANSORAL DIAGNOSTIC 04/25/2019 EGD HEART CATHETERIZATION Left 2007 left circumflex stent HEART SURGERY HX LIG/TRNSXJ FLP TUBE ABDL/VAG APPR UNI/BI Tubal ligation PAST SURGICAL HISTORY OF 06/07/2006 right shoulder arthroscopy (biceps tenodesis and SLAP repair) PAST SURGICAL HISTORY OF 09/07/2011 neck surgery plate put in C 5-7 TONSILLECTOMY PRIMARY/SECONDARY <AGE 10 Tonsillectomy VAGINAL HYSTERECTOMY UTERUS 250 GM/< Hysterectomy, vaginal ALLERGIES Codeine and Ultracet [Tramadol-Acetaminophen] MEDICATIONS hydrOXYzine HCl (ATARAX) 25 mg tablet take 1 tablet by mouth three times a day as needed for anxiety MAGNESIUM ORAL Take by mouth. amLODIPine (NORVASC) 10 mg tablet Take 1 tablet by mouth once daily. escitalopram oxalate (LEXAPRO) 20 mg tablet Take 1 tablet by mouth once daily. Appointment needed for further refills. ramipril (ALTACE) 10 mg capsule Take 2 capsules by mouth once daily. Cholecalciferol, Vitamin D3, 25 mcg (1,000 unit) cap Take 1 capsule by mouth once daily. atorvastatin (LIPITOR) 80 mg tablet Take 80 mg by mouth once daily. clopidogrel (PLAVIX) 75 mg tablet Take 75 mg by mouth once daily. aspirin(ADULT LOW DOSE ASPIRIN 81 MG TAB, DELAYED RELEASE) Take one(1) tablet daily. FAMILY HISTORY Problem Relation Age of Onset Heart Mother MD Coronary Artery Disease Mother Heart Father MD Coronary Artery Disease Father Heart Maternal Grandmother MD Heart Paternal Grandmother MD Breast Cancer Paternal Grandmother sinus cancer Heart Paternal Grandfather MD Hypertension Brother Ischemic Heart Disease Brother age 42 MD, etoh, tob and drug use Multiple Sclerosis No Family History Coronary Artery Disease Brother Social History Tobacco Use Smoking status: Every Day Current packs/day: 1.00 Average packs/day: 1 pack/day for 50.0 years (50.0 ttl pk-yrs) Types: Cigarettes Smokeless tobacco: Never Tobacco comments: since age 14 Substance Use Topics Alcohol use: No Drug use: No PHYSICAL EXAM BP 132/62 Pulse (!) 56 Resp 16 Wt 68 kg (150 lb) SpO2 97% BMI 23.15 kg/m General Appearance: well appearing, in no acute distress, alert Pysch: mood and affect broad and appropriate Eyes: conjunctiva pink and moist, no icterus, sclera white, non-injected Lungs: Lungs clear to auscultation. No wheezing, rhonchi, rales. Heart: RRR with grade 3 systolic murmur, gallop, or rubs. No ectopy Health maintenance reviewed with patient: Depression Screening Never done Anxiety Screening Never done Hepatitis C Screening Never done BP Controlled (<130/80) Never done DTaP,Tdap,Td Vaccine(1 - Tdap) due on 11/19/2007 Shingrix Vaccine(1 of 2) Never done Mammogram Screening due on 03/22/2024 Covid-19 Vaccine(2023- season) due on 05/04/2024 LDL Cholesterol due on 07/11/2024 Pneumococcal Vaccine: 65+(2 of 2 - PCV) due on 09/10/2024 Lung Cancer Screening due on 01/23/2025 Annual PCP Team Chronic Disease Visit due on 06/11/2025 Diabetes Screening due on 07/11/2026 Lipid Screening due on 07/11/2028 Colorectal Cancer Screening due on 12/05/2032 RSV Vaccine(1 - 1-dose 75+ series) due on 2033 Bone Density Screening Completed Influenza Vaccine Completed Advance Directive Discussion Completed Cervical Cancer Screening Discontinued DATA REVIEWED: Outside chart from [facility] reviewed. ASSESSMENT/PLAN: 1. Essential hypertension - ICD9: 401.9, ICD10: I10 (primary diagnosis) - Controlled - Continue current medications - Recommend home blood pressure monitoring, to bring results to next visit - Encouraged sodium restriction, DASH or Mediterranean diet - Recommend regular aerobic exercise - Smoking cessation encouraged; discussed risks to health and quitting strategies. Patient is not ready to quit 2. Coronary artery disease involving [place] coronary artery of [place] heart without angina pectoris - ICD9: 414.01, ICD10: I25.10 Stable - as above Continue with recommendations by cardiology 3. Anxiety and depression - ICD9: 300.00, 311, ICD10: F41.9, F32.A Controlled with current treatment - ESCITALOPRAM 20 MG TABLET - Reviewed concept of neurochemical imbalance [facility] depression/anxiety, treatment options and benefits of counseling in combination with medication. Also reviewed benefits of sleep hygeine, diet and exercise - Instructed patient to contact office or [id number] after-hours promptly should condition worsen or any new symptoms appear. - Counseling Center [facility] and after hours crisis line Prescription instructions reviewed with patient as applicable. Potential red flag symptoms discussed with the patient. Reviewed appropriate action plan to take if red flag symptoms occur. Patient agreeable to treatment plan. Usha Gomes APRN.CNP documented in this encounter [facility] 04-30-2024 Note Patient Outreach (IN TMMN) NAHEED LYNCH ([id number]) 1960 F Date Time Provider Department 04/30/24 SHIRA BULLARD During your visit today, we recorded the following information about you: Allergies As of Date: 04/30/2024 Noted Allergy Reaction CODEINE 07/07/2005 8 - GI Upset ULTRACET (TRAMADOL-ACETAMINOPHEN) 10/09/2005 8 - GI Upset Date Reviewed: 01/14/2024 Reviewed by: Tiny Calderon APRN.CNP - Fully Assessed Visit Diagnosis:Encounter for screening mammogram for breast cancer [Z12.31] Order(s):TRINA SCREENING W MIHIR [[id number]] Order #: [id number] FUTURE Prescriptions as of 05/05/2024 - hydrOXYzine HCl (ATARAX) 25 mg tablet take 1 tablet by mouth three times a day as needed for anxiety - MAGNESIUM ORAL Take by mouth. - amLODIPine (NORVASC) 10 mg tablet Take 1 tablet by mouth once daily. - escitalopram oxalate (LEXAPRO) 20 mg tablet Take 1 tablet by mouth once daily. Appointment needed for further refills. - ramipril (ALTACE) 10 mg capsule Take 2 capsules by mouth once daily. - albuterol HFA (PROVENTIL HFA, VENTOLIN HFA) 90 mcg/actuation inhaler INHALE 2 PUFFS INSTRUCTED EVERY 4 HOURS NEEDED FOR WHEEZING/SHORTNESS OF BREATH. - Cholecalciferol, Vitamin D3, 25 mcg (1,000 unit) cap Take 1 capsule by mouth once daily. - atorvastatin (LIPITOR) 80 mg tablet Take 80 mg by mouth once daily. - clopidogrel (PLAVIX) 75 mg tablet Take 75 mg by mouth once daily. - aspirin(ADULT LOW DOSE ASPIRIN 81 MG TAB, DELAYED RELEASE) Take one(1) tablet daily. Problem List As Of Date 04/30/2024 Noted Resolved Essential hypertension [I10] SHOULDER REGION DIS NEC right [M25.819] 08/14/2005 ROTATOR CUFF SYND NOSright [M71.9, M67.919] 08/14/2005 LATERAL EPICONDYLITIS right [M77.10] 08/14/2005 05/16/2006 SUPERIOR GLENOID LABRUM LES [S43.439A] 05/16/2006 BICIPITAL TENOSYNOVITIS [M75.20] 05/16/2006 SURGERY FOLLOWUP NOS [Z09] 06/11/2006 TOBACCO USE DISORDER [F17.200] 12/30/2007 Osteopenia [M85.80] 02/15/2012 Optic neuritis [H46.9] 10/08/2012 Coronary artery disease involving [place] jason*12/05/2017 Mixed hyperlipidemia [E78.2] 12/05/2017 Encounter Status:Closed by RAFAEL URIASUSER on 05/05/[address] [facility] 01-24-2024 History of Present illness Narrative Radiology Service Progress Note PATIENT NAME: Naheed Lynch DATE OF SERVICE: January 24, 2024 TIME: 3:10 PM PATIENT IDENTITY VERIFICATION COMPLETED USING TWO (2) IDENTIFIERS: Name and Date of confirmed by patient verbally. FALL SCREENING: Has the patient had 2 falls in the last year or 1 fall with injury or currently using an Ambulatory Assistive Device (Walker, Cane, Wheelchair, Crutches, etc.)? No PATIENT GENDER DATA: Female. status: : No status: NO. PATIENT RELEVANT IMPLANT DATA REVIEWED: Yes PATIENT PRESENTS WITH AN IMPLANTABLE OR ATTACHED BATTERY ASSEMBLER PLASTIC: No RADIOLOGY DEPARTMENT: CT; Exam(s) Completed: Chest PERIPHERAL IV DATA: Not applicable SIGNED BY: RT Geovanna(R) January 24, 2024 3:10 PM documented in this encounter [facility] 01-24-2024 Note HNO ID: [id number] Author: VANESSA OLIVEROS RT(Madan) Service: ? Author Type: [employer] Type: Progress Notes Filed: 01/24/2024 15:10 Note Text: Radiology Service Progress Note PATIENT NAME: Naheed Lynch DATE OF SERVICE: January 24, 2024 TIME: 3:10 PM PATIENT IDENTITY VERIFICATION COMPLETED USING TWO (2) IDENTIFIERS: Name and Date of confirmed by patient verbally. FALL SCREENING: Has the patient had 2 falls in the last year or 1 fall with injury or currently using an Ambulatory Assistive Device (Walker, Cane, Wheelchair, Crutches, etc.)? No PATIENT GENDER DATA: Female. status: : No status: NO. PATIENT RELEVANT IMPLANT DATA REVIEWED: Yes PATIENT PRESENTS WITH AN IMPLANTABLE OR ATTACHED BATTERY ASSEMBLER PLASTIC: No RADIOLOGY DEPARTMENT: CT; Exam(s) Completed: Chest PERIPHERAL IV DATA: Not applicable SIGNED BY: RT Geovanna(R) January 24, 2024 3:[address] [facility] 01-14-2024 Telephone encounter Note Patient calls and notified of results and providers instructions. Patient verbalizes understanding. Patient will increase dietary calcium and add a calcium supplement splitting up as recommended. Patient reports she will discuss additional treatment at appointment with provider in June. Brooke Yao RN [facility] 01-14-2024 Miscellaneous Notes Patient calls and notified of results and providers instructions. Patient verbalizes understanding. Patient will increase dietary calcium and add a calcium supplement splitting up as recommended. Patient reports she will discuss additional treatment at appointment with provider in June. Brooke Yao RN Bone density test is showing osteoporosis. She needs an appointment to discuss treatment options like fosamax. Continue Vitamin D Supplement. Calcium is best absorbed from your diet. Green vegetables and low fat dairy are good dietary sources of calcium. Walking, weight bearing exercise, resistance training , limiting alcohol and not smoking are also good ways to help maintain your bone mass. We will repeat the bone density in two years. If you add a calcium supplement you will not absorb more than 600 mg at a time so split the dosing . Thank you Usha Gomes APRN.CNP documented in this encounter [facility] 01-14-2024 Telephone encounter Note Bone density test is showing osteoporosis. She needs an appointment to discuss treatment options like fosamax. Continue Vitamin D Supplement. Calcium is best absorbed from your diet. Green vegetables and low fat dairy are good dietary sources of calcium. Walking, weight bearing exercise, resistance training , limiting alcohol and not smoking are also good ways to help maintain your bone mass. We will repeat the bone density in two years. If you add a calcium supplement you will not absorb more than 600 mg at a time so split the dosing . Thank you Usha Gomes APRN.CNP [facility] 01-14-2024 History of Present illness Narrative Radiology Service Progress Note PATIENT NAME: Naheed Lynch DATE OF SERVICE: January 14, 2024 TIME: 10:02 AM PATIENT IDENTITY VERIFICATION COMPLETED USING TWO (2) IDENTIFIERS: Name and Date of confirmed by patient verbally. FALL SCREENING: Has the patient had 2 falls in the last year or 1 fall with injury or currently using an Ambulatory Assistive Device (Walker, Cane, Wheelchair, Crutches, etc.)? No PATIENT GENDER DATA: Female. status: : No status: NO. PATIENT RELEVANT IMPLANT DATA REVIEWED: Not Applicable PATIENT PRESENTS WITH AN IMPLANTABLE OR ATTACHED BATTERY ASSEMBLER PLASTIC: No RADIOLOGY DEPARTMENT: Bone Density PERIPHERAL IV DATA: Not applicable SIGNED BY: RT Suhail(R) January 14, 2024 10:02 AM documented in this encounter [facility] 01-14-2024 Note HNO ID: [id number] Author: SUKH DOUGLAS RT(R) Service: ? Author Type: Technologist Type: Progress Notes Filed: 01/14/2024 10:13 Note Text: Radiology Service Progress Note PATIENT NAME: Naheed Lynch DATE OF SERVICE: January 14, 2024 TIME: 10:02 AM PATIENT IDENTITY VERIFICATION COMPLETED USING TWO (2) IDENTIFIERS: Name and Date of confirmed by patient verbally. FALL SCREENING: Has the patient had 2 falls in the last year or 1 fall with injury or currently using an Ambulatory Assistive Device (Walker, Cane, Wheelchair, Crutches, etc.)? No PATIENT GENDER DATA: Female. status: : No status: NO. PATIENT RELEVANT IMPLANT DATA REVIEWED: Not Applicable PATIENT PRESENTS WITH AN IMPLANTABLE OR ATTACHED BATTERY ASSEMBLER PLASTIC: No RADIOLOGY DEPARTMENT: Bone Density PERIPHERAL IV DATA: Not applicable SIGNED BY: RT Suhail(R) January 14, 2024 10:[address] [facility] 01-14-2024 Instructions Tiny Calderon APRN.[facility] 01/14/2024 9:[address] Lung Screen Results The CT scan that you will have done will show if you have any nodules (small spots) in your lungs that are suspicious for cancer. Around 90% of the patients who have this scan done are found to have at least one nodule. Most nodules are benign (not cancer) and of no harm to you at all. A specialist will make a scientific evaluation about whether or not a nodule is worrisome based on its size and shape. The radiologist who will read your scan will put it into one of four categories: LUNG-RADS Category Description Overall Probability of Malignancy Recommended Follow-Up 1 Negative No nodules and definitely benign (non-cancerous nodules) Essentially 0. 1 Year - Follow-up Low dose CT 2 Benign Appearance or Behavior Nodules with a very low likelihood of becoming cancer due to size or lack of growth Less than 1% 1 Year - Follow-up Low dose CT 3 Probably Benign Probably benign finding, short term follow-up recommended 1 to 2% 6 Months - Follow-up Low dose CT 4 Suspicious Findings for which additional diagnostic testing and/or biopsy is recommended Will be calculated based on nodule characteristics. Dependent on what is seen on the exam. (3 month follow-up CT, PET-CT, or biopsy) 0 Incomplete Findings suggestive of an inflammatory or infectious process AND/OR part of the lung cannot be evaluated Additional lung cancer screening CT imaging needed AND/OR comparison with prior chest CT imaging At times, we may see something outside of the lungs on the scan that could be a health concern. Below are some of the most common findings: S Clinically Significant or Potentially Clinically Significant Findings (non lung cancer) Referral or additional imaging/labs depending on result. Approximately 10% of people receive this result. Coronary Artery Calcifications (Moderate or Severe) - Referral to cardiology for further work-up and recommendations. Thyroid Nodule - TSH level and Thyroid Ultrasound dependent on size, referral to endocrinology. Adrenal Nodule - blood work and referral to endocrinology. Others Lung Cancer Screening hotline: [phone] Lung Cancer Screening [phone] Billing Questions: or [email or web address] Specialist Providers: (Yamila Harris PA-C; Dara Zheng CNP; Falguni Esquivel CNP, Lucina Sierra CNP; Vanessa Lamb CNP; Yusra Najera PA-C; Tiny Calderon CNP; Tess Escobar CNP; Annalisa Reno CNP; Zoie To CNP; Luda Kee PA-C; Dahlia Lee PA-C; Elida Agrawal CNP; Jennifer West CNP; Sharon Garrison CNP): [phone] documented in this encounter [facility] 01-14-2024 Note HNO ID: [id number] Author: TINY CALDERON APRN.CNP Service: ? Author Type: Nurse Practitioner Type: Progress Notes Filed: 01/14/2024 09:21 Note Text: LUNG SCREENING VISIT PRIMARY CARE PHYSICIAN: Shira Bullard MD PULMONARY PROVIDER: none Results will be communicated via letter or electronic record if applicable. Visit Delivery: In Person Patient Visit Type: New to Screening Current or Ex-smoker? [Current Exam Type: baseline LDCT Number of Pack Years: 50 Current smoker (=0) REQUESTER: The referring provider advised the patient to have screening. HISTORY OF PRESENT ILLNESS: Naheed Lynch is a 63 year old Active smoker who presents for lung screening. Currently smoking about 1 PPD. Quit for a couple of weeks. Heart stent left circumflex artery follows with [facility], seen within the last year. Respiratory symptoms include: SOB: No Chest tightness: No Coughing: No Hemoptysis: No Wheezing: No Fever/Chills: No Recent Respiratory Infection: No Unintentional weight loss: No Last 6 Encounter Wt Readings: Date: Wt: 01/14/2024 68 kg (150 lb) 01/07/2024 68.5 kg (151 lb) 12/10/2023 68.5 kg (151 lb) 09/10/2023 66.7 kg (147 lb) 08/10/2023 66.7 kg (147 lb) 07/11/2023 65.3 kg (144 lb) ECOG PERFORMANCE STATUS: 0- Fully active, able to carry on all pre-disease performance w/o restriction. Modified Medical Research [place] Dyspnea Scale (MMRC) I only get breathless with strenous exercise 0 PAST MEDICAL HISTORY Diagnosis Date Bilateral optic neuritis Chronic interstitial cystitis Coronary artery disease 2007 one stent placed Dyspareunia Irritable bowel syndrome Mental disorder Other disorder of menstruation and other abnormal bleeding from female genital tract Unspecified essential hypertension Essential hypertension Uterovaginal prolapse, complete PAST SURGICAL HISTORY Procedure Laterality Date COLONOSCOPY FLX DX W/COLLJ SPEC WHEN PFRMD 08/23/2018 Colonoscopy ESOPHAGOGASTRODUODENOSCOPY TRANSORAL DIAGNOSTIC 04/25/2019 EGD HEART CATHETERIZATION stent HEART SURGERY HX LIG/TRNSXJ FLP TUBE ABDL/VAG APPR UNI/BI Tubal ligation PAST SURGICAL HISTORY OF 06/07/2006 right shoulder arthroscopy (biceps tenodesis and SLAP repair) PAST SURGICAL HISTORY OF 09/07/2011 neck surgery plate put in C 5-7 TONSILLECTOMY PRIMARY/SECONDARY Tonsillectomy VAGINAL HYSTERECTOMY UTERUS 250 GM/< Hysterectomy, vaginal FAMILY HISTORY Problem Relation Age of Onset Heart Mother MD Coronary Artery Disease Mother Heart Father MD Coronary Artery Disease Father Heart Maternal Grandmother MD Heart Paternal Grandmother MD Breast Cancer Paternal Grandmother sinus cancer Heart Paternal Grandfather MD Hypertension Brother Ischemic Heart Disease Brother age 42 MD, etoh, tob and drug use Multiple Sclerosis No Family History Coronary Artery Disease Brother hydrOXYzine HCl (ATARAX) 25 mg tablet take 1 tablet by mouth three times a day as needed for anxiety MAGNESIUM ORAL Take by mouth. amLODIPine (NORVASC) 10 mg tablet Take 1 tablet by mouth once daily. escitalopram oxalate (LEXAPRO) 20 mg tablet Take 1 tablet by mouth once daily. Appointment needed for further refills. ramipril (ALTACE) 10 mg capsule Take 2 capsules by mouth once daily. albuterol HFA (PROVENTIL HFA, VENTOLIN HFA) 90 mcg/actuation inhaler INHALE 2 PUFFS INSTRUCTED EVERY 4 HOURS NEEDED FOR WHEEZING/SHORTNESS OF BREATH. (Patient not taking: Reported on 01/07/2024) Cholecalciferol, Vitamin D3, 25 mcg (1,000 unit) cap Take 1 capsule by mouth once daily. atorvastatin (LIPITOR) 80 mg tablet Take 80 mg by mouth once daily. clopidogrel (PLAVIX) 75 mg tablet Take 75 mg by mouth once daily. aspirin(ADULT LOW DOSE ASPIRIN 81 MG TAB, DELAYED RELEASE) Take one(1) tablet daily. ALLERGIES Allergen Reactions Codeine GI Upset Ultracet [Tramadol-* GI Upset The medications and allergies were reviewed and reconciled for this patient and deemed current. Lung Cancer Risk Factors: 1.Tobacco Use: Start Age 14, Quit Age: N/A, Average packs per day 1, Pack Years 50 2. Passive Smoke Exposure: Yes, as a Child and as an Adult 3. Personal hx of malignancy: No, Type of Cancer: 4. Significant exposures (1 year or more of exposure): Other, Jean brush-adhesive 5. Race: White 6. Education: Less than High School 7. BMI:Body mass index is 23.15 kg/m?. Patient-entered Height: 5'7 Patient-entered Weight: 150 pounds 8. COPD: No 9. Pneumonia in the past 5 years: No 10. Is there a history of lung cancer in a first degree relative? No 11. Is there a history of lung cancer in a non-first degree relative? No 12. Is there a history of any other cancer in a first degree relative? No Health Maintenance Immunization History Administered Date(s) Administered COVID-19 original vaccine, age 12+ yr, monovalent (ReferralMD - PURPLE TOP) 11/11/2020 (more content not included)... [facility] 01-14-2024 History of Present illness Narrative Images from the original note were not included. LUNG SCREENING VISIT PRIMARY CARE PHYSICIAN: Shira Bullard MD PULMONARY PROVIDER: none Results will be communicated via letter or electronic record if applicable. Visit Delivery: In Person Patient Visit Type: New to Screening Current or Ex-smoker? [Current Exam Type: baseline LDCT Number of Pack Years: 50 Current smoker (=0) REQUESTER: The referring provider advised the patient to have screening. HISTORY OF PRESENT ILLNESS: Naheed Lynch is a 63 year old Active smoker who presents for lung screening. Currently smoking about 1 PPD. Quit for a couple of weeks. Heart stent left circumflex artery follows with [facility], seen within the last year. Respiratory symptoms include: SOB: No Chest tightness: No Coughing: No Hemoptysis: No Wheezing: No Fever/Chills: No Recent Respiratory Infection: No Unintentional weight loss: No Last 6 Encounter Wt Readings: Date: Wt: 01/14/2024 68 kg (150 lb) 01/07/2024 68.5 kg (151 lb) 12/10/2023 68.5 kg (151 lb) 09/10/2023 66.7 kg (147 lb) 08/10/2023 66.7 kg (147 lb) 07/11/2023 65.3 kg (144 lb) ECOG PERFORMANCE STATUS: 0- Fully active, able to carry on all pre-disease performance w/o restriction. Modified Medical Research [place] Dyspnea Scale (MMRC) I only get breathless with strenous exercise 0 PAST MEDICAL HISTORY Diagnosis Date Bilateral optic neuritis Chronic interstitial cystitis Coronary artery disease 2007 one stent placed Dyspareunia Irritable bowel syndrome Mental disorder Other disorder of menstruation and other abnormal bleeding from female genital tract Unspecified essential hypertension Essential hypertension Uterovaginal prolapse, complete PAST SURGICAL HISTORY Procedure Laterality Date COLONOSCOPY FLX DX W/COLLJ SPEC WHEN PFRMD 08/23/2018 Colonoscopy ESOPHAGOGASTRODUODENOSCOPY TRANSORAL DIAGNOSTIC 04/25/2019 EGD HEART CATHETERIZATION stent HEART SURGERY HX LIG/TRNSXJ FLP TUBE ABDL/VAG APPR UNI/BI Tubal ligation PAST SURGICAL HISTORY OF 06/07/2006 right shoulder arthroscopy (biceps tenodesis and SLAP repair) PAST SURGICAL HISTORY OF 09/07/2011 neck surgery plate put in C 5-7 TONSILLECTOMY PRIMARY/SECONDARY <AGE 12 Tonsillectomy VAGINAL HYSTERECTOMY UTERUS 250 GM/< Hysterectomy, vaginal FAMILY HISTORY Problem Relation Age of Onset Heart Mother MD Coronary Artery Disease Mother Heart Father MD Coronary Artery Disease Father Heart Maternal Grandmother MD Heart Paternal Grandmother MD Breast Cancer Paternal Grandmother sinus cancer Heart Paternal Grandfather MD Hypertension Brother Ischemic Heart Disease Brother age 42 MD, etoh, tob and drug use Multiple Sclerosis No Family History Coronary Artery Disease Brother hydrOXYzine HCl (ATARAX) 25 mg tablet take 1 tablet by mouth three times a day as needed for anxiety MAGNESIUM ORAL Take by mouth. amLODIPine (NORVASC) 10 mg tablet Take 1 tablet by mouth once daily. escitalopram oxalate (LEXAPRO) 20 mg tablet Take 1 tablet by mouth once daily. Appointment needed for further refills. ramipril (ALTACE) 10 mg capsule Take 2 capsules by mouth once daily. albuterol HFA (PROVENTIL HFA, VENTOLIN HFA) 90 mcg/actuation inhaler INHALE 2 PUFFS INSTRUCTED EVERY 4 HOURS NEEDED FOR WHEEZING/SHORTNESS OF BREATH. (Patient not taking: Reported on 01/07/2024) Cholecalciferol, Vitamin D3, 25 mcg (1,000 unit) cap Take 1 capsule by mouth once daily. atorvastatin (LIPITOR) 80 mg tablet Take 80 mg by mouth once daily. clopidogrel (PLAVIX) 75 mg tablet Take 75 mg by mouth once daily. aspirin(ADULT LOW DOSE ASPIRIN 81 MG TAB, DELAYED RELEASE) Take one(1) tablet daily. ALLERGIES Allergen Reactions Codeine GI Upset Ultracet [Tramadol-* GI Upset The medications and allergies were reviewed and reconciled for this patient and deemed current. Lung Cancer Risk Factors: 1.Tobacco Use: Start Age 14, Quit Age: N/A, Average packs per day 1, Pack Years 50 2. Passive Smoke Exposure: Yes, as a Child and as an Adult 3. Personal hx of malignancy: No, Type of Cancer: 4. Significant exposures (1 year or more of exposure): Other, Jean brush-adhesive 5. Race: White 6. Education: Less than High School 7. BMI:Body mass index is 23.15 kg/m . Patient-entered Height: 5'7 Patient-entered Weight: 150 pounds 8. COPD: No 9. Pneumonia in the past 5 years: No 10. Is there a history of lung cancer in a first degree relative? No 11. Is there a history of lung cancer in a non-first degree relative? No 12. Is there a history of any other cancer in a first degree relative? No Health Maintenance Immunization History Administered Date(s) Administered COVID-19 original vaccine, age 12+ yr, monovalent (ReferralMD - PURPLE TOP) 11/11/2020 12/02/2020 08/13/2021 TD Adult 11/18/2007 influenza (IIV4) vaccine, age 6 mo - 64 yr, quadrivalent (AFLURIA, FLULAVAL, FLUZONE) 05/24/2018 influenza vaccine, unspecified formulation 07/04/2011 influenza vaccine, whole virus 05/18/2016 pneumococcal polysaccharide (PPV23) vaccine, 23 valent (PNEUMOVAX 23) 09/08/2011 Colonoscopy: 08/23/2018 Mammogram: 03/23/2023 DATA REVIEW I have directly visualized the testing documented: none Prior Imaging: Last CT/CTA Chest/Lungs No resulted procedures found. Last CT Chest - Impression Only No resulted procedures found. Last XR Chest - Impression Only XR CHEST 2V FRONTAL/LAT Exam End: 01/08/2023 10:14 AM (Final result) Impression: IMPRESSION: No acute radiographic abnormality. ... Pulmonary Function Testing: No textual results found for the specified procedure(s). PHYSICAL EXAM: BP 130/78 Pulse (!) 53 Resp 14 Wt 68 kg (150 lb) SpO2 96% BMI 23.15 kg/m Deferred ASSESSMENT and RECOMMENDATIONS: 1. Screening for lung cancer: Six year risk for lung cancer: 5.95% Https://[employer]/Hungarian/ [email or web address]/[email or web address]://[email or web address]/[email or web address] I have determined that the patient is eligible for a low dose CT based on age, absence of signs or symptoms of lung cancer, and total pack years: Yes. The patient and I engaged in shared decision making, including the use of one or more decision aids, to include benefits, harms, follow-up diagnostic testing, over-diagnosis, false positive rate, and total radiation exposure. The patient understands and feels comfortable with it: Yes. The patient was counseled on the importance of adherence to annual LDCT lung cancer screening, impact of comorbidities and ability or willingness to undergo diagnosis and treatment. The patient understands and feels comfortable with it:Yes. 2. Nicotine dependence: The patient was counseled on the importance of smoking cessation if current smoker and, if appropriate, offered additional tobacco cessation counseling services - Smoking Cessation Counseling. SMOKING CESSATION COUNSELING Smoking cessation methods including Nicotine Replacement Therapies and Behavior Modification were discussed with the patient and assistance offered. Used nicorette gum in the past. Can go long periods without smoking. The medical conditions adversely affected by cigarette use include:COPD, Emphysema, and Lung Cancer. The patient is currently not ready to quit. I personally spent 3 minutes in counseling. The time spent in smoking cessation counseling is exclusive of any other counseling during this visit. Tiny Calderon APRN.CNP NPI #: January [id number], [id number] 9:03 AM documented in this encounter [facility] 01-07-2024 Instructions Tiffanie Sutherland APRN.CNS - 01/07/2024 8:32 AM EDT It is possible the ankle swelling you are noticing is a medication effect for amlodipine or Norvasc. It appears you should be taking amlodipine 10 mg daily. Check your pill bottles to verify if this is your current dosing. For foot and leg swelling: Avoid salty foods, elevate your legs when sitting down and try [id number] compression socks when sitting or standing for prolonged periods (8-15mmHg strength or similar). These are available at most pharmacies. Monitor your left ear. Let us know if not healing or an abnormal looking lesion appears. Watch with soap and water and place antibacterial ointment on a daily until healed documented in this encounter [facility] 01-07-2024 History of Present illness Narrative SUBJECTIVE: Hepatitis C Screening Never done HIV Screening Never done DTaP,Tdap,Td Vaccine(1 - Tdap) due on 11/19/2007 Lung Cancer Screening Never done Shingrix Vaccine(1 of 2) Never done Bone Density Screening due on 2023 Behavioral Health Screening Never done Mammogram Screening due on 03/22/2024 HPI Naheed Lynch is a 63 year old female. PMH significant for ACTIVE PROBLEM LIST Essential Hypertension SHOULDER REGION DIS NEC right ROTATOR CUFF SYND NOSright Superior Glenoid Labrum Lesion Bicipital Tenosynovitis Follow-Up Examination, Following Unspecified Surgery Tobacco Use Disorder Osteopenia Optic Neuritis Coronary Artery Disease Involving [place] Coronary Artery of [place] Heart Without Angina Pectoris Mixed Hyperlipidemia Presents today regarding swelling in her feet and ankles. She reports this has been present for a week. Notes it is better now than it was a week ago. She notes she may have had some dietary sodium indiscretions. Does not think she has been on her feet or sitting with feet dependent more than usual. Weight is stable. No shortness of breath. No chest pain. No palpitations. Cardiology: [facility], last seen by Jerry Pizarro/Dr Pantoja 08/2023. Review of outside medications shows feeling of amlodipine at both 10 mg and 5 mg daily with last filled January 03 by cardiology. Cardiology has been ordering 5 mg and Marcial has been ordering 10 mg. It is unclear what her current dose actually is. She states she is taking 10 mg. Continues on atenolol 25 daily and clopidogrel 75 mg daily per cardiology.. Last 14 Encounter BP Readings: Date: BP: 01/07/2024 154/75[bp average[ 12/10/2023 128/76 09/10/2023 142/78 08/10/2023 156/69[BP Tony[ 07/11/2023 156/71 01/08/2023 140/76 12/11/2022 171/76[BP Tony[ 05/23/2021 145/80 2019 169/85 04/07/2019 183/87 04/07/2019 166/81 03/12/2019 120/70 08/19/2018 142/84 07/31/2018 120/76 She separately reports that she noted a tick on her dog that jumped on her left ear which she removed as soon as it occurred. No noted EM. Reports currently cleaning the area with peroxide and applying Neosporin. Review of Systems Constitutional: Negative. Cardiovascular: Positive for leg swelling (bilateral ankle swelling). Objective BP 156/84 Pulse (!) 45 Resp 16 Wt 68.5 kg (151 lb) BMI 23.30 kg/m Physical Exam Vitals and nursing note reviewed. Constitutional: Appearance: Normal appearance. HENT: Head: Normocephalic and atraumatic. Eyes: Conjunctiva/sclera: Conjunctivae normal. Neck: Thyroid: No thyromegaly. Vascular: Normal carotid pulses. No JVD. Cardiovascular: Rate and Rhythm: Regular rhythm. Bradycardia present. Pulses: Carotid pulses are 2+ on the right side and 2+ on the left side. Radial pulses are 2+ on the right side and 2+ on the left side. Heart sounds: Normal heart sounds. Pulmonary: Effort: Pulmonary effort is normal. Breath sounds: Normal breath sounds. Abdominal: General: Bowel sounds are normal. Palpations: Abdomen is soft. Musculoskeletal: Right lower leg: Edema (ankle puffiness, no leg edema) present. Left lower leg: Edema (ankle puffiness, no leg edema) present. Skin: General: Skin is warm and dry. Comments: Left ear pinna with a scab, no EM Neurological: General: No focal deficit present. Mental Status: She is alert and oriented to person, place, and time. ALLERGIES Allergen Reactions Codeine GI Upset Ultracet [Tramadol-* GI Upset Medication MAGNESIUM ORAL Take by mouth. amLODIPine (NORVASC) 10 mg tablet Take 1 tablet by mouth once daily. hydrOXYzine HCl (ATARAX) 25 mg tablet TAKE 1 TABLET BY MOUTH THREE TIMES A DAY NEEDED FOR ANXIETY escitalopram oxalate (LEXAPRO) 20 mg tablet Take 1 tablet by mouth once daily. Appointment needed for further refills. ramipril (ALTACE) 10 mg capsule Take 2 capsules by mouth once daily. Cholecalciferol, Vitamin D3, 25 mcg (1,000 unit) cap Take 1 capsule by mouth once daily. atorvastatin (LIPITOR) 80 mg tablet Take 80 mg by mouth once daily. clopidogrel (PLAVIX) 75 mg tablet Take 75 mg by mouth once daily. aspirin(ADULT LOW DOSE ASPIRIN 81 MG TAB, DELAYED RELEASE) Take one(1) tablet daily. albuterol HFA (PROVENTIL HFA, VENTOLIN HFA) 90 mcg/actuation inhaler INHALE 2 PUFFS INSTRUCTED EVERY 4 HOURS NEEDED FOR WHEEZING/SHORTNESS OF BREATH. (Patient not taking: Reported on 01/07/2024) PAST MEDICAL HISTORY Diagnosis Date Bilateral optic neuritis Chronic interstitial cystitis Coronary artery disease 2007 one stent placed Dyspareunia Irritable bowel syndrome Mental disorder Other disorder of menstruation and other abnormal bleeding from female genital tract Unspecified essential hypertension Essential hypertension Uterovaginal prolapse, complete Social History Tobacco Use Smoking status: Every Day Packs/day: 1.00 Years: 35.00 Additional pack years: 0.00 Total pack years: 35.00 Types: Cigarettes Smokeless tobacco: Never Tobacco comments: since age 14 Substance Use Topics Alcohol use: No Drug use: No ASSESSMENT/PLAN: 1. Ankle swelling, unspecified laterality - ICD9: 719.07, ICD10: M25.473 Her bilateral ankle swelling only appears to be medication effect of amlodipine. There is no leg edema. Weight is stable. Review of outside medication shows she has had both 5 mg and 10 mg amlodipine prescriptions filled. 5 mg is coming from cardiology office, 10 mg coming from Usha gomes CNP. Recommend she check her pill bottles to verify which dose she is currently taking. It appears she needs to 10 mg and I suspect she only had 5 mg today. For ankle swelling endorse DASH diet, OTC compression socks when seated or standing for prolonged periods with feet dependent, elevating feet when sitting. She will let us know if not improved with these measures. She reports a tick came off her dog onto her ear and was on her left ear for moments before she removed it. No EM noted on exam. Advised: It is possible the ankle swelling you are noticing is a medication effect for amlodipine or Norvasc. It appears you should be taking amlodipine 10 mg daily. Check your pill bottles to verify if this is your current dosing. For foot and leg swelling: Avoid salty foods, elevate your legs when sitting down and try koyy-[id number]-ioaoqky compression socks when sitting or standing for prolonged periods (8-15mmHg strength or similar). These are available at most pharmacies. Monitor your left ear. Let us know if not healing or an abnormal looking lesion appears. Watch with soap and water and place antibacterial ointment on a daily until healed. Tiffanie Sutherland APRN.COFFEE BREAK ATTENDANT Medical Decision Making: Problems: Moderate: 1+ chronic illnesses with change Risk: Moderate: Drug management Medical Decision Making Level: 4 - Moderate documented in this encounter [facility] 01-04-2024 Telephone encounter Note Patient has been identified by name and date of : Yes Pharmacy phones for refill(s): Requested Prescriptions Pending Prescriptions Disp Refills hydrOXYzine HCl (ATARAX) 25 mg tablet [Pharmacy Med Name: HYDROXYZINE HCL 25 MG TABLET] 270 tablet 1 Sig: take 1 tablet by mouth three times a day as needed for anxiety Date of last office visit in primary care: 12/10/2023 Date of next office visit in primary care: 06/11/2024 Please advise. Thank you. Corbin Reyez LPN. [facility] 01-04-2024 Miscellaneous Notes Patient has been identified by name and date of : Yes Pharmacy phones for refill(s): Requested Prescriptions Pending Prescriptions Disp Refills hydrOXYzine HCl (ATARAX) 25 mg tablet [Pharmacy Med Name: HYDROXYZINE HCL 25 MG TABLET] 270 tablet 1 Sig: take 1 tablet by mouth three times a day as needed for anxiety Date of last office visit in primary care: 12/10/2023 Date of next office visit in primary care: 06/11/2024 Please advise. Thank you. Corbin Reyez LPN. documented in this encounter [facility] 12-26-2023 Telephone encounter Note Patient has been identified by name and date of : No Patient phones for refill(s): Requested Prescriptions Pending Prescriptions Disp Refills amLODIPine (NORVASC) 10 mg tablet 90 tablet 3 Sig: Take 1 tablet by mouth once daily. Date of last office visit in primary care: 12/10/23 Date of next office visit in primary care: 06/11/24 Please advise. Thank you. Willa Chandler LPN. [facility] 12-26-2023 Miscellaneous Notes Patient has been identified by name and date of : No Patient phones for refill(s): Requested Prescriptions Pending Prescriptions Disp Refills amLODIPine (NORVASC) 10 mg tablet 90 tablet 3 Sig: Take 1 tablet by mouth once daily. Date of last office visit in primary care: 12/10/23 Date of next office visit in primary care: 06/11/24 Please advise. Thank you. Willa Chandler LPN. Patient has been identified by name and date of : Yes, Provider Usha Gomes Date 12/26/2023 Time 9:31 am Patient phones for refill(s): Requested Prescriptions Pending Prescriptions Disp Refills amLODIPine (NORVASC) 10 mg tablet 90 tablet 3 Sig: Take 1 tablet by mouth once daily. Date of last office visit in primary care: 12/10/2023 Date of next office visit in primary care: 06/11/2024 Please fill this by tomorrow as patient will be out in two days Please advise. Thank you. Tracie Ceballos. documented in this encounter [facility] 12-26-2023 Telephone encounter Note Patient has been identified by name and date of : Yes, Provider Usha Gomes Date 12/26/2023 Time 9:31 am Patient phones for refill(s): Requested Prescriptions Pending Prescriptions Disp Refills amLODIPine (NORVASC) 10 mg tablet 90 tablet 3 Sig: Take 1 tablet by mouth once daily. Date of last office visit in primary care: 12/10/2023 Date of next office visit in primary care: 06/11/2024 Please fill this by tomorrow as patient will be out in two days Please advise. Thank you. Tracie Ceballos. [facility] 12-10-2023 Instructions Usha Gomes APRN.CAMPUS REP - 12/10/2023 10:42 AM EDT BONE MINERAL DENSITY PATIENT INSTRUCTIONS ======= Bone mineral density testing measures the amount of calcium in certain parts of your bones. This information determines how strong your bones are. The test is used to detect osteoporosis, a disease in which the bone's mineral content and density are low, increasing a person's risk of fractures. The lumbar spine (lower back) and the hip are the skeletal sites usually examined. For the test, remember that: 1. You cannot take this test if you are . 2. Eat a normal diet on the day of the test. 3. Take your medications as you normally would. 4. DO NOT take calcium supplements (such as Tums) for 24 hours before the test. 5. On the day of the test, leave valuables (jewelry or credit cards) at home. 6. The test should be performed prior to oral, rectal or IV contrast studies, or at least 7 days after any of these studies. For the test, you may be asked to wear a hospital gown. You will lie on your back, on a padded table, in a comfortable position. Generally, you can resume your usual activities immediately. documented in this encounter [facility] 12-10-2023 History of Present illness Narrative CC: Patient presents with: F/U HTN 3 Month HPI Naheed Lynch is a 63 year old female who presents today for blood pressure follow up. HTN, CAD with stent placement: Ms. Lynch indicates that she is feeling well and denies any symptoms referable to elevated blood pressure. Specifically denies headache, chest pain, palpitations, dyspnea, and peripheral edema. Patient denies any side effects of her medication(s) and is compliant with their regimen. She does check BP's away from this office with average BP's in the 120s-130s/70s range. Naheed denies regular aerobic exercise. She watches her diet for sodium, low fat and low cholesterol some of the time. Sees [facility] yearly. Last 3 Encounter BP Readings: Date: BP: 12/10/2023 128/76 09/10/2023 142/78 08/10/2023 156/69[BP Tony[ REVIEW OF SYSTEMS See HPI PAST MEDICAL HISTORY Diagnosis Date Bilateral optic neuritis Chronic interstitial cystitis Coronary artery disease 2007 one stent placed Dyspareunia Irritable bowel syndrome Mental disorder Other disorder of menstruation and other abnormal bleeding from female genital tract Unspecified essential hypertension Essential hypertension Uterovaginal prolapse, complete PAST SURGICAL HISTORY Procedure Laterality Date COLONOSCOPY FLX DX W/COLLJ SPEC WHEN PFRMD 08/23/2018 Colonoscopy ESOPHAGOGASTRODUODENOSCOPY TRANSORAL DIAGNOSTIC 04/25/2019 EGD HEART CATHETERIZATION stent HEART SURGERY HX LIG/TRNSXJ FLP TUBE ABDL/VAG APPR UNI/BI Tubal ligation PAST SURGICAL HISTORY OF 06/07/2006 right shoulder arthroscopy (biceps tenodesis and SLAP repair) PAST SURGICAL HISTORY OF 09/07/2011 neck surgery plate put in C 5-7 TONSILLECTOMY PRIMARY/SECONDARY <AGE 10 Tonsillectomy VAGINAL HYSTERECTOMY UTERUS 250 GM/< Hysterectomy, vaginal ALLERGIES Codeine and Ultracet [Tramadol-Acetaminophen] MEDICATIONS amLODIPine (NORVASC) 10 mg tablet TAKE 1 TABLET BY MOUTH EVERY DAY hydrOXYzine HCl (ATARAX) 25 mg tablet TAKE 1 TABLET BY MOUTH THREE TIMES A DAY NEEDED FOR ANXIETY escitalopram oxalate (LEXAPRO) 20 mg tablet Take 1 tablet by mouth once daily. Appointment needed for further refills. ramipril (ALTACE) 10 mg capsule Take 2 capsules by mouth once daily. albuterol HFA (PROVENTIL HFA, VENTOLIN HFA) 90 mcg/actuation inhaler INHALE 2 PUFFS INSTRUCTED EVERY 4 HOURS NEEDED FOR WHEEZING/SHORTNESS OF BREATH. Cholecalciferol, Vitamin D3, 25 mcg (1,000 unit) cap Take 1 capsule by mouth once daily. atorvastatin (LIPITOR) 80 mg tablet Take 80 mg by mouth once daily. clopidogrel (PLAVIX) 75 mg tablet Take 75 mg by mouth once daily. aspirin(ADULT LOW DOSE ASPIRIN 81 MG TAB, DELAYED RELEASE) Take one(1) tablet daily. FAMILY HISTORY Problem Relation Age of Onset Heart Mother MD Coronary Artery Disease Mother Heart Father MD Coronary Artery Disease Father Heart Maternal Grandmother MD Heart Paternal Grandmother MD Breast Cancer Paternal Grandmother sinus cancer Heart Paternal Grandfather MD Hypertension Brother Ischemic Heart Disease Brother age 42 MD, etoh, tob and drug use Multiple Sclerosis No Family History Coronary Artery Disease Brother Social History Tobacco Use Smoking status: Every Day Packs/day: 1.00 Years: 35.00 Additional pack years: 0.00 Total pack years: 35.00 Types: Cigarettes Smokeless tobacco: Never Tobacco comments: since age 14 Substance Use Topics Alcohol use: No Drug use: No PHYSICAL EXAM BP 128/76 (BP Site: Left Arm, BP Position: Sitting, BP Cuff Size: Large Adult) Pulse (!) 52 Temp 36.3 C (97.3 F) Resp 12 Ht 171.5 cm (5' 7.5) Wt 68.5 kg (151 lb) SpO2 97% BMI 23.30 kg/m General Appearance: well appearing, in no acute distress, alert Eyes: conjunctiva pink and moist, no icterus, sclera white, non-injected Lungs: Lungs clear to auscultation. No wheezing, rhonchi, rales. Heart: RRR without murmur, gallop, or rubs. No ectopy Health maintenance reviewed with patient: BP Controlled (<130/80) Never done Lung Cancer Screening Never done Bone Density Screening due on 2023 Behavioral Health Screening Never done DTaP,Tdap,Td Vaccine(1 - Tdap) due on 12/12/2023 Hepatitis C Screening due on 12/12/2023 HIV Screening due on 12/12/2023 Shingrix Vaccine(1 of 2) due on 12/12/2023 RSV Vaccine(1 - 1-dose 60+ series) due on 09/10/2024 Covid-19 Vaccine(4 - season) due on 09/10/2024 Pneumococcal Vaccine: 65+(2 of 2 - PCV) due on 09/10/2024 Mammogram Screening due on 03/22/2024 Influenza Vaccine(Season Ended) due on 05/04/2024 LDL Cholesterol due on 07/11/2024 Annual PCP Team Chronic Disease Visit due on 09/10/2024 Diabetes Screening due on 07/11/2026 Lipid Screening due on 07/11/2028 Colorectal Cancer Screening due on 12/05/2032 Advance Directive Discussion Completed Pap Testing Discontinued DATA REVIEWED: No new labs ASSESSMENT/PLAN: 1. Coronary artery disease involving [place] coronary artery of [place] heart without angina pectoris - ICD9: 414.01, ICD10: I25.10 (primary diagnosis) Stable and asymptomatic Continue with current medications and recommendations by cardiology - smoking cessation encouraged. - LIPID PANEL BASIC - COMP METABOLIC PANEL - CBC 2. Essential hypertension - ICD9: 401.9, ICD10: I10 - Controlled - Continue current medications - Recommend home blood pressure monitoring, to bring results to next visit - Encouraged sodium restriction, DASH or Mediterranean diet - Recommend regular aerobic exercise - Smoking cessation encouraged; discussed risks to health and quitting strategies. Patient is not ready to quit - LIPID PANEL BASIC - COMP METABOLIC PANEL - CBC 3. Mixed hyperlipidemia - ICD9: 272.2, ICD10: E78.2 - Controlled - Continue current medications - Counseled on healthy diet and regular exercise - LIPID PANEL BASIC - COMP METABOLIC PANEL - CBC 4. Encounter for screening for lung cancer - ICD9: V76.0, ICD10: Z12.2 - CONSULT LUNG CANCER SCREENING CLINIC 5. Screening for osteoporosis - ICD9: V82.81, ICD10: Z13.820 - DXA-AXIAL SKELETON - BD DXA TRABECULAR BONE SCORE (TBS) 6. Asymptomatic menopause - ICD9: V49.81, ICD10: Z78.0 - DXA-AXIAL SKELETON - BD DXA TRABECULAR BONE SCORE (TBS) Prescription instructions reviewed with patient as applicable. Potential red flag symptoms discussed with the patient. Reviewed appropriate action plan to take if red flag symptoms occur. Patient agreeable to treatment plan. Usha Gomes APRN.CNP documented in this encounter [facility] 08-10-2023 History of Present illness Narrative CC: Patient presents with: Recheck: BP meds HPI Naheed Lynch is a 63 year old female who presents today for anxiety and elevated blood pressure. Anxiety and Insomnia: Much improved with increase of lexapro and hydroxyzine. Sleep: is described as normal with the hydroxyzine Alcohol use: does not drink any alcohol Drug use: No Appetite: good Stresses: Denies any major stressor. Suicidal Thoughts: No suicidal ideation, intent or plan HTN, CAD, and HLD: Ms. Lynch indicates that she is feeling well and denies any symptoms referable to elevated blood pressure. Specifically denies headache, chest pain, palpitations, dyspnea, and peripheral edema. Patient denies any side effects of her medication(s) and is compliant with their regimen. She does check BP's away from this office with average BP's in the 140s-150s/70s range prior taking her blood pressure medicine. Saw [facility] recently with elevated BP in office with plan of increasing amlodipine if still elevated. Patient reports she is on 10mg but pharmacy record shows 5mg being ordered by [facility]. Recent ECHO completed as well. Last 3 Encounter BP Readings: Date: BP: 08/10/2023 150/86 07/11/2023 156/71 01/08/2023 140/76 REVIEW OF SYSTEMS See HPI PAST MEDICAL HISTORY Diagnosis Date Bilateral optic neuritis Chronic interstitial cystitis Coronary artery disease 2007 one stent placed Dyspareunia Irritable bowel syndrome Mental disorder Other disorder of menstruation and other abnormal bleeding from female genital tract Unspecified essential hypertension Essential hypertension Uterovaginal prolapse, complete PAST SURGICAL HISTORY Procedure Laterality Date COLONOSCOPY FLX DX W/COLLJ SPEC WHEN PFRMD 08/23/2018 Colonoscopy ESOPHAGOGASTRODUODENOSCOPY TRANSORAL DIAGNOSTIC 04/25/2019 EGD HEART CATHETERIZATION stent HEART SURGERY HX LIG/TRNSXJ FLP TUBE ABDL/VAG APPR UNI/BI Tubal ligation PAST SURGICAL HISTORY OF 06/07/2006 right shoulder arthroscopy (biceps tenodesis and SLAP repair) PAST SURGICAL HISTORY OF 09/07/2011 neck surgery plate put in C 5-7 TONSILLECTOMY PRIMARY/SECONDARY <AGE 10 Tonsillectomy VAGINAL HYSTERECTOMY UTERUS 250 GM/< Hysterectomy, vaginal ALLERGIES Codeine and Ultracet [Tramadol-Acetaminophen] MEDICATIONS hydrOXYzine HCl (ATARAX) 25 mg tablet TAKE 1 TABLET BY MOUTH THREE TIMES A DAY NEEDED FOR ANXIETY escitalopram oxalate (LEXAPRO) 20 mg tablet Take 1 tablet by mouth once daily. Appointment needed for further refills. ramipril (ALTACE) 10 mg capsule Take 2 capsules by mouth once daily. albuterol HFA (PROVENTIL HFA, VENTOLIN HFA) 90 mcg/actuation inhaler INHALE 2 PUFFS INSTRUCTED EVERY 4 HOURS NEEDED FOR WHEEZING/SHORTNESS OF BREATH. Cholecalciferol, Vitamin D3, 25 mcg (1,000 unit) cap Take 1 capsule by mouth once daily. amLODIPine (NORVASC) 10 mg tablet Take 10 mg by mouth once daily. atorvastatin (LIPITOR) 80 mg tablet Take 80 mg by mouth once daily. clopidogrel (PLAVIX) 75 mg tablet Take 75 mg by mouth once daily. aspirin(ADULT LOW DOSE ASPIRIN 81 MG TAB, DELAYED RELEASE) Take one(1) tablet daily. FAMILY HISTORY Problem Relation Age of Onset Heart Mother MD Coronary Artery Disease Mother Heart Father MD Coronary Artery Disease Father Heart Maternal Grandmother MD Heart Paternal Grandmother MD Breast Cancer Paternal Grandmother sinus cancer Heart Paternal Grandfather MD Hypertension Brother Ischemic Heart Disease Brother age 42 MD, etoh, tob and drug use Multiple Sclerosis No Family History Coronary Artery Disease Brother Social History Tobacco Use Smoking status: Every Day Packs/day: 1.00 Years: 35.00 Additional pack years: 0.00 Total pack years: 35.00 Types: Cigarettes Smokeless tobacco: Never Tobacco comments: since age 14 Substance Use Topics Alcohol use: No Drug use: No PHYSICAL EXAM BP 150/86 Pulse (!) 48 Resp 16 Wt 66.7 kg (147 lb) SpO2 97% BMI 22.68 kg/m General Appearance: well appearing, in no acute distress, alert Pysch: mood and affect broad and appropriate Eyes: conjunctiva pink and moist, no icterus, sclera white, non-injected Lungs: Lungs clear to auscultation. No wheezing, rhonchi, rales. Heart: RRR without murmur, gallop, or rubs. No ectopy Health maintenance reviewed with patient: BP Controlled (<130/80) Never done Lung Cancer Screening Never done RSV Vaccine(1 - 1-dose 60+ series) Never done Pneumococcal Vaccine: 65+(2 - PCV) due on 11/04/2020 Bone Density Screening due on 2023 Advance Directive Discussion Never done Influenza Vaccine(1) due on 05/04/2023 Covid-19 Vaccine(4 - 2022- season) due on 05/04/2023 DTaP,Tdap,Td Vaccine(1 - Tdap) due on 12/12/2023 Hepatitis C Screening due on 12/12/2023 HIV Screening due on 12/12/2023 Shingrix Vaccine(1 of 2) due on 12/12/2023 Mammogram Screening due on 03/22/2024 LDL Cholesterol due on 07/11/2024 Annual PCP Team Chronic Disease Visit due on 07/11/2024 Diabetes Screening due on 07/11/2026 Lipid Screening due on 07/11/2028 Colorectal Cancer Screening due on 12/05/2032 Depression Assessment Completed Pap Testing Discontinued DATA REVIEWED: Most recent labs ASSESSMENT/PLAN: 1. Essential hypertension - ICD9: 401.9, ICD10: I10 (primary diagnosis) - Uncontrolled - Continue current medications but increasing amlodipine - follow up in 2-4 weeks - Recommend home blood pressure monitoring, to bring results to next visit - Encouraged sodium restriction, DASH or Mediterranean diet - Recommend regular aerobic exercise 2. Mixed hyperlipidemia - ICD9: 272.2, ICD10: E78.2 - Controlled - Continue current medications - Counseled on healthy diet and regular exercise - Discussed need for and benefit of weight loss. BMI 22.68 kg/(m^2) 3. Coronary artery disease involving [place] coronary artery of [place] heart without angina pectoris - ICD9: 414.01, ICD10: I25.10 Asymptomatic - continue with current medications and recommendations by cardiology. 4. Anxiety and depression - ICD9: 300.00, 311, ICD10: F41.9, F32.A Improved with current treatment. - Reviewed concept of neurochemical imbalance wth depression/anxiety, treatment options and benefits of counseling in combination with medication. Also reviewed benefits of sleep hygeine, diet and exercise - Instructed patient to contact office or [id number] after-hours promptly should condition worsen or any new symptoms appear. - Counseling Center [facility] and after hours crisis line 5. Insomnia, unspecified type - ICD9: 780.52, ICD10: G47.00 As above Prescription instructions reviewed with patient as applicable. Potential red flag symptoms discussed with the patient. Reviewed appropriate action plan to take if red flag symptoms occur. Patient agreeable to treatment plan. Usha Gomes APRN.CJ documented in this encounter [facility] 08-06-2023 Miscellaneous Notes Patient has been identified by name and date of : No Patient phones for refill(s): Requested Prescriptions Pending Prescriptions Disp Refills hydrOXYzine HCl (ATARAX) 25 mg tablet [Pharmacy Med Name: HYDROXYZINE HCL 25 MG TABLET] 270 tablet 1 Sig: TAKE 1 TABLET BY MOUTH THREE TIMES A DAY NEEDED FOR ANXIETY Date of last office visit in primary care: 07/11/2023 Date of next office visit in primary care: 08/10/2023 Last 2 Encounter Wt Readings: Date: Wt: 07/11/2023 65.3 kg (144 lb) 01/08/2023 64 kg (141 lb) Previous labs/tests for medication: Not applicable Please advise. Thank you. Willa Chandler. documented in this encounter [facility] 07-11-2023 History of Present illness Narrative CC: Patient presents with: Recheck: 6 month follow up HPI Nahede Lynch is a 63 year old female who presents today for routine follow up. HTN CAD and HLD: Ms. Lynch indicates that she is feeling well and denies any symptoms referable to elevated blood pressure. Specifically denies headache, chest pain, palpitations, dyspnea, and peripheral edema. Patient denies any side effects of her medication(s) and is compliant with their regimen. She does check BP's away from this office with average BP's in the 150/70s range. Naheed works out regularly 7 times per week with walking. She watches her diet for sodium, low fat and low cholesterol most of the time. Is a cigarette smoker and not interested in quitting at this time. Saw her cardiology recently with BP similar to reading today but no med changes were done at that visit. Last 3 Encounter BP Readings: Date: BP: 07/11/2023 162/108 - 156/71 01/08/2023 140/76 12/11/2022 171/76[BP Tony[ Depression and anxiety: Feels depression is well controlled but still with large amount of anxiousness that may be affecting her blood pressure. Sleep: is characterized by difficulty falling asleep and only gets an average of 4 hours ever night because her thoughts keep racing. Alcohol use: does not drink any alcohol Drug use: No Appetite: good Stresses: Denies any major stressor. Suicidal Thoughts: No suicidal ideation, intent or plan Support: Comes from multiple sources including REVIEW OF SYSTEMS General: no fevers, no chills, no night sweats, no recurrent infections, no change in appetite, no change in energy, and no significant changes in weight Respiratory: no cough, no wheezing, no shortness of breath, no hemoptysis Cardiovascular: no chest pain, no chest pressure, no palpitations, and no swelling Neurologic: No headache, weakness, numbness, tingling, dizziness, memory loss, syncope. PAST MEDICAL HISTORY Diagnosis Date Bilateral optic neuritis Chronic interstitial cystitis Coronary artery disease 2007 one stent placed Dyspareunia Irritable bowel syndrome Mental disorder Other disorder of menstruation and other abnormal bleeding from female genital tract Unspecified essential hypertension Essential hypertension Uterovaginal prolapse, complete PAST SURGICAL HISTORY Procedure Laterality Date COLONOSCOPY FLX DX W/COLLJ SPEC WHEN PFRMD 08/23/2018 Colonoscopy ESOPHAGOGASTRODUODENOSCOPY TRANSORAL DIAGNOSTIC 04/25/2019 EGD HEART CATHETERIZATION stent HEART SURGERY HX LIG/TRNSXJ FLP TUBE ABDL/VAG APPR UNI/BI Tubal ligation PAST SURGICAL HISTORY OF 06/07/2006 right shoulder arthroscopy (biceps tenodesis and SLAP repair) PAST SURGICAL HISTORY OF 09/07/2011 neck surgery plate put in C 5-7 TONSILLECTOMY PRIMARY/SECONDARY <AGE 10 Tonsillectomy VAGINAL HYSTERECTOMY UTERUS 250 GM/< Hysterectomy, vaginal ALLERGIES Codeine and Ultracet [Tramadol-Acetaminophen] MEDICATIONS albuterol HFA (PROVENTIL HFA, VENTOLIN HFA) 90 mcg/actuation inhaler INHALE 2 PUFFS INSTRUCTED EVERY 4 HOURS NEEDED FOR WHEEZING/SHORTNESS OF BREATH. escitalopram oxalate (LEXAPRO) 10 mg tablet Take 1 tablet by mouth once daily. Appointment needed for further refills. Cholecalciferol, Vitamin D3, 25 mcg (1,000 unit) cap Take 1 capsule by mouth once daily. ramipril (ALTACE) 10 mg capsule ramipril amLODIPine (NORVASC) 10 mg tablet Take 10 mg by mouth once daily. atorvastatin (LIPITOR) 80 mg tablet Take 80 mg by mouth once daily. clopidogrel (PLAVIX) 75 mg tablet Take 75 mg by mouth once daily. aspirin(ADULT LOW DOSE ASPIRIN 81 MG TAB, DELAYED RELEASE) Take one(1) tablet daily. FAMILY HISTORY Problem Relation Age of Onset Heart Mother MD Coronary Artery Disease Mother Heart Father MD Coronary Artery Disease Father Heart Maternal Grandmother MD Heart Paternal Grandmother MD Breast Cancer Paternal Grandmother sinus cancer Heart Paternal Grandfather MD Hypertension Brother Ischemic Heart Disease Brother age 42 MD, etoh, tob and drug use Multiple Sclerosis No Family History Coronary Artery Disease Brother Social History Tobacco Use Smoking status: Every Day Packs/day: 1.00 Years: 35.00 Additional pack years: 0.00 Total pack years: 35.00 Types: Cigarettes Smokeless tobacco: Never Tobacco comments: since age 14 Substance Use Topics Alcohol use: No Drug use: No PHYSICAL EXAM BP 162/108 Pulse (!) 56 Resp 16 Wt 65.3 kg (144 lb) SpO2 97% BMI 22.22 kg/m General Appearance: well appearing, in no acute distress, alert Pysch: mood and affect broad and appropriate Skin: Skin color, texture, turgor normal for age; Eyes: conjunctiva pink and moist, no icterus, sclera white, non-injected Lungs: Lungs clear to auscultation. No wheezing, rhonchi, rales. Heart: RRR without murmur, gallop, or rubs. No ectopy Health maintenance reviewed with patient: BP Controlled (<130/80) Never done Lung Cancer Screening Never done RSV Vaccine(1 - 1-dose 60+ series) Never done Pneumococcal Vaccine: 65+(2 - PCV) due on 11/04/2020 Bone Density Screening due on 2023 Advance Directive Discussion Never done Influenza Vaccine(1) due on 05/04/2023 Covid-19 Vaccine(4 - 2022-24 season) due on 05/04/2023 DTaP,Tdap,Td Vaccine(1 - Tdap) due on 12/12/2023 Hepatitis C Screening due on 12/12/2023 HIV Screening due on 12/12/2023 Shingrix Vaccine(1 of 2) due on 12/12/2023 LDL Cholesterol due on 12/12/2023 Annual PCP Team Chronic Disease Visit due on 01/09/2024 Mammogram Screening due on 03/22/2024 Diabetes Screening due on 01/08/2026 Lipid Screening due on 12/12/2027 Colorectal Cancer Screening due on 12/05/2032 Depression Assessment Completed Pap Testing Discontinued DATA REVIEWED: No new labs ASSESSMENT/PLAN: 1. Essential hypertension - ICD9: 401.9, ICD10: I10 (primary diagnosis) - Uncontrolled - possibly result of increased anxiety and not sleeping. Will treat anxiety/insomnia and have her follow up in 2-4 weeks - Continue current medications - Recommend home blood pressure monitoring, to bring results to next visit - Encouraged sodium restriction, DASH or Mediterranean diet - Recommend regular aerobic exercise - CBC - COMP METABOLIC PANEL - TSH BLD - T4 FREE/FREE THYROX 2. Anxiety and depression - ICD9: 300.00, 311, ICD10: F41.9, F32.A - uncontrolled - increasing lexapro and adding hydroxyzine to help with anxiety and insomnia as well. - ESCITALOPRAM 20 MG TABLET - TSH BLD - T4 FREE/FREE THYROX - Reviewed concept of neurochemical imbalance wth depression/anxiety, treatment options and benefits of counseling in combination with medication. Also reviewed benefits of sleep hygeine, diet and exercise - Follow-up in 4 weeks or sooner as needed - Instructed patient to contact office or [id number] after-hours promptly should condition worsen or any new symptoms appear. - Counseling Center [facility] and after hours crisis line 3. Insomnia, unspecified type - ICD9: 780.52, ICD10: G47.00 As above - TSH BLD - T4 FREE/FREE THYROX 4. Coronary artery disease involving [place] coronary artery of [place] heart without angina pectoris - ICD9: 414.01, ICD10: I25.10 - stable and asymptomatic - continue current medications and recommendations by cardiology - COMP METABOLIC PANEL - LIPID PANEL BASIC 5. Tobacco use disorder - ICD9: 305.1, ICD10: F17.200 - Cessation encouraged. - Physiologic and physical aspects of tobacco addiction as well as strategies for quitting were discussed. - Counseling was given focusing on the harmful effects of this addiction especially given the patient's medical condition(s) which will be worsened because of the chemicals in tobacco. 6. Mixed hyperlipidemia - ICD9: 272.2, ICD10: E78.2 - Control undetermined, due for labs - Continue current medications - Counseled on healthy diet and regular exercise - Discussed need for and benefit of weight loss. BMI 22.22 kg/(m^2) - COMP METABOLIC PANEL - LIPID PANEL BASIC 7. Elevated glucose - ICD9: 790.29, ICD10: R73.09 - HGB A1C 8. Vitamin D deficiency - ICD9: 268.9, ICD10: E55.9 - VITAMIN D 25 HYDROXY Prescription instructions reviewed with patient as applicable. Potential red flag symptoms discussed with the patient. Reviewed appropriate action plan to take if red flag symptoms occur. Patient agreeable to treatment plan. Usha Gomes APRN.CNP documented in this encounter [facility] 06-15-2023 Miscellaneous Notes Patient has been identified by name and date of : No Patient phones for refill(s): Requested Prescriptions Pending Prescriptions Disp Refills albuterol HFA (PROVENTIL HFA, VENTOLIN HFA) 90 mcg/actuation inhaler [Pharmacy Med Name: ALBUTEROL HFA (VENTOLIN) INH] 18 Each 1 Sig: INHALE 2 PUFFS INSTRUCTED EVERY 4 HOURS NEEDED FOR WHEEZING/SHORTNESS OF BREATH. Date of last office visit in primary care: 01/08/2023 Date of next office visit in primary care: 07/11/2023 Last 2 Encounter Wt Readings: Date: Wt: 01/08/2023 64 kg (141 lb) 12/11/2022 64.4 kg (142 lb) Previous labs/tests for medication: Not applicable Please advise. Thank you. Willa Chandler. documented in this encounter [facility] 03-26-2023 Miscellaneous Notes Pt called and is notified of providers results and instructions. Pt voices understanding. Sharon Lopez RN Please call patient and let her know her recent mammogram was without any issues. We recommend a repeat mammogram in 1 year per screening guidelines. Please let me know if any questions or concerns. Thanks. Jeniffer Reeder APRN.CAMPUS REP documented in this encounter [facility] 03-01-2023 Miscellaneous Notes Patient calling with request for mammogram order. Pended. Evon Snider RN documented in this encounter [facility] 01-10-2023 Miscellaneous Notes Patient notified. ----- Message from Usha Gomes APRN.CAMPUS REP sent at 01/10/2023 1:58 PM EDT ----- Please let patient know lab work is all within acceptable ranges. No current concern of diabetes and her blood counts are now normal. Thank you Usha Gomes APRN.CAMPUS REP documented in this encounter [facility] 01-08-2023 Miscellaneous Notes Spoke with patient. Given message from provider's office. Patient verbalizes understanding. Evon Snider RN TC to patient with no answer. Left VM to return call to office to receive results. AKOSUA Keita Please let patient know chest xray does not show any infection. Continue with already ordered antibiotic and follow up if no improvement in the next 3-5 days. We are still waiting on lab results. Thank you Usha Gomes APRN.CJ documented in this encounter [facility] 01-08-2023 History of Present illness Narrative Radiology Service Progress Note PATIENT NAME: Naheed Lynch DATE OF SERVICE: January 08, 2023 TIME: 10:08 AM PATIENT IDENTITY VERIFICATION COMPLETED USING TWO (2) IDENTIFIERS: Name and Date of confirmed by patient verbally. FALL SCREENING: Has the patient had 2 falls in the last year or 1 fall with injury or currently using an Ambulatory Assistive Device (Walker, Cane, Wheelchair, Crutches, etc.)? No PATIENT GENDER DATA: Female. status: : No status: NO. PATIENT RELEVANT IMPLANT DATA REVIEWED: Yes RADIOLOGY DEPARTMENT: General X-ray: Exam(s) Completed: Chest X-Ray PERIPHERAL IV DATA: Not applicable SIGNED BY: RT Noe(R) January 08, 2023 10:08 AM documented in this encounter [facility] 01-08-2023 History of Present illness Narrative CC: Patient presents with: Yearly Exam: Annual Exam HPI Naheed Lynch is a 62 year old female who presents today for annual physical exam. Exercise: works out regularly 7 times per week with walking. Diet: Watches diet for salt (salty snacks, added salt, processed frozen/canned foods), sugary/sweet snacks, unhealthy fats: No Caffeine: 3-4 cups a day Water intake: average 80-100 ml a day Has had sinus drainage and cough for the past 3 weeks. States cough is keeping her up at night and is producing green sputum. Also has sinus pressure, headache, green sinus drainage, fatigue, chills, and is a cigarette smoker. Denies fever, shortness of breath, chest pain, wheezing, edema, dizziness, syncope, or sore throat. Has a cough suppressant at home that is working. HTN, CAD with stent placement 16 years ago and HLD: Sees [facility] with Cardiology and sees regularly has had recent normal stress test last fall. Ms. Lynch indicates that she is feeling well and denies any symptoms referable to elevated blood pressure. Specifically denies headache, chest pain, palpitations, dyspnea, and peripheral edema. Patient denies any side effects of her medication(s) and is compliant with their regimen but did just take her antihypertensives 20 minutes before appointment and smoked before appointment. She does check BP's away from this office with average BP's in the 150s/80s range. Last 3 Encounter BP Readings: Date: BP: 01/08/2023 162/92 - 140/76 at end of appointment 12/11/2022 171/76[BP Tony[ 05/23/2021 145/80 Depression and Anxiety is much improved. Was started on Lexapro 4 weeks ago. Sleep: is described as normal Alcohol use: does not drink any alcohol Drug use: No Appetite: good Stresses: Denies any major stressor. Suicidal Thoughts: No suicidal ideation, intent or plan Support: Comes from multiple sources including Counseling: No REVIEW OF SYSTEMS General: no fevers, no chills, no night sweats, no recurrent infections, no change in appetite, and no significant changes in weight Respiratory: See HPI Cardiovascular: no chest pain, no chest pressure, no palpitations, and no swelling GI: No nausea, vomiting, or diarrhea : No history of dysuria, frequency or incontinence Skin: Negative for lesions, rash, and itching Endocrine: no cold intolerance, no heat intolerance, no polyuria, no polyphagia, and no polydipsia Neurologic: No weakness, numbness, tingling, dizziness, memory loss, syncope. PAST MEDICAL HISTORY Diagnosis Date Bilateral optic neuritis Chronic interstitial cystitis Coronary artery disease 2007 one stent placed Dyspareunia Irritable bowel syndrome Mental disorder Other disorder of menstruation and other abnormal bleeding from female genital tract Unspecified essential hypertension Essential hypertension Uterovaginal prolapse, complete PAST SURGICAL HISTORY Procedure Laterality Date COLONOSCOPY FLX DX W/COLLJ SPEC WHEN PFRMD 08/23/2018 Colonoscopy ESOPHAGOGASTRODUODENOSCOPY TRANSORAL DIAGNOSTIC 04/25/2019 EGD HEART CATHETERIZATION stent HEART SURGERY HX LIG/TRNSXJ FLP TUBE ABDL/VAG APPR UNI/BI Tubal ligation PAST SURGICAL HISTORY OF 06/07/2006 right shoulder arthroscopy (biceps tenodesis and SLAP repair) PAST SURGICAL HISTORY OF 09/07/2011 neck surgery plate put in C 5-7 TONSILLECTOMY PRIMARY/SECONDARY <AGE 10 Tonsillectomy VAGINAL HYSTERECTOMY UTERUS 250 GM/< Hysterectomy, vaginal ALLERGIES Codeine and Ultracet [Tramadol-Acetaminophen] MEDICATIONS ramipril (ALTACE) 10 mg capsule ramipril amLODIPine (NORVASC) 10 mg tablet Take 10 mg by mouth once daily. atorvastatin (LIPITOR) 80 mg tablet Take 80 mg by mouth once daily. clopidogrel (PLAVIX) 75 mg tablet Take 75 mg by mouth once daily. aspirin(ADULT LOW DOSE ASPIRIN 81 MG TAB, DELAYED RELEASE) Take one(1) tablet daily. escitalopram oxalate (LEXAPRO) 10 mg tablet Take 1 tablet by mouth once daily. Appointment needed for further refills. amoxicillin-clavulanic acid (AUGMENTIN) 875-125 mg per tablet Take 1 tablet by mouth twice daily for 10 days. albuterol HFA (VENTOLIN HFA) 90 mcg/actuation inhaler Inhale 2 Puffs as instructed every 4 hours as needed for wheezing/shortness of breath. Cholecalciferol, Vitamin D3, 25 mcg (1,000 unit) cap Take 1 capsule by mouth once daily. FAMILY HISTORY Problem Relation Age of Onset Heart Mother MD Coronary Artery Disease Mother Heart Father MD Coronary Artery Disease Father Heart Maternal Grandmother MD Heart Paternal Grandmother MD Breast Cancer Paternal Grandmother sinus cancer Heart Paternal Grandfather MD Hypertension Brother Ischemic Heart Disease Brother age 42 MD, etoh, tob and drug use Multiple Sclerosis No Family History Coronary Artery Disease Brother Social History Tobacco Use Smoking status: Every Day Packs/day: 1.00 Years: 35.00 Pack years: 35.00 Types: Cigarettes Smokeless tobacco: Never Tobacco comments: since age 14 Substance Use Topics Alcohol use: No Drug use: No PHYSICAL EXAM BP 140/76 Pulse 72 Temp 36.2 C (97.2 F) (Temporal) Resp 16 Wt 64 kg (141 lb) SpO2 95% BMI 21.76 kg/m General Appearance: well appearing, in no acute distress, alert Pysch: mood and affect broad and appropriate Skin: Skin color, texture, turgor normal for age; Eyes: conjunctiva pink and moist, no icterus, sclera white, non-injected Nose/sinus: Nares normal. Septum midline. Mucosa normal. No drainage. Neck: Thyroid normal size and symmetric without palpable nodules, Neck supple, No adenopathy Oropharynx: tongue midline and normal, soft palate, uvula, and tonsils normal, palpation of salivary glands negative Lymph nodes: No cervical lymphadenopathy and No supraclavicular lymphadenopathy Lungs: wheezing and rhonchi throughout Heart: RRR without murmur, gallop, or rubs. No ectopy Abdomen: Abdomen soft, non-tender. Bowel sounds normal. No masses, organomegaly BUE Extremities: No deformities, edema, skin discoloration, clubbing or cyanosis. Good capillary refill. Neurological: Gait normal. Reflexes normal and symmetric. Sensation grossly intact. BP CONTROLLED (<130/80) Never done DEPRESSION ASSESSMENT Never done MAMMOGRAM due on 02/06/2023 DTAP,TDAP,TD(1 - Tdap) due on 12/12/2023 HEPATITIS C SCREENING due on 12/12/2023 HIV SCREENING due on 12/12/2023 SHINGRIX VACCINE(1 of 2) due on 12/12/2023 COVID-19 VACCINE(4 - Booster for Pfizer series) due on 12/12/2023 PNEUMOCOCCAL(2 - PCV) due on 12/12/2023 INFLUENZA(Season Ended) due on 05/04/2023 LDL CHOLESTEROL due on 12/12/2023 ANNUAL PCP TEAM CHRONIC DISEASE VISIT due on 12/12/2023 DIABETES SCREEN due on 12/11/2025 LIPID SCREEN due on 12/12/2027 COLORECTAL CANCER SCREENING due on 12/05/2032 PAP TESTING Discontinued HPV TESTING Discontinued ASSESSMENT/PLAN: 1. Annual physical exam - ICD9: V70.0, ICD10: Z00.00 (primary diagnosis) - Counseled on healthy diet and regular exercise - Calcium intake with supplements or by diet of 1000 mg/day for under 50, 4745-1492 mg/day for 50+ - Smoking cessation encouraged; discussed risks to health and quitting strategies. Patient is not ready to quit - Depression screening tool completed and reviewed with patient. Based on score and interview, patient is already diagnosed with depression and recommended no further intervention at this time. - Follow up for annual exam in one year 2. Acute cough - ICD9: 786.2, ICD10: R05.1 - with abnormal lung sounds, needs evaluated for pneumonia. Started on augmentin and will add azithromycin if positive for pneumonia. No prednisone at this time as patient has had a recent GI bleed. Albuterol inhaler as ordered - XR CHEST 2V FRONTAL/LAT - follow up depending on result 3. Wheezing - ICD9: 786.07, ICD10: R06.2 As above - XR CHEST 2V FRONTAL/LAT 4. Anxiety and depression - ICD9: 300.00, 311, ICD10: F41.9, F32.A - controlled with current treatment - ESCITALOPRAM 10 MG TABLET - Reviewed concept of neurochemical imbalance wth depression/anxiety, treatment options and benefits of counseling in combination with medication. Also reviewed benefits of sleep hygeine, diet and exercise - Follow-up in 6 months or sooner as needed - Instructed patient to contact office or [id number] after-hours promptly should condition worsen or any new symptoms appear. - [facility] and after hours crisis line 5. Essential hypertension - ICD9: 401.9, ICD10: I10 - good control, was elevated at start of visit but had just smoked and taken her medications, was much lower at end of appointment - Continue current medication(s) - Encouraged dietary sodium restriction/DASH diet - Recommended regular aerobic exercise. - Recommend home blood pressure monitoring, to bring results in on next visit - Goal of BP <130/80 - follow up in 6 months - continue with cardiology and orders placed by them. 6. Coronary artery disease involving [place] coronary artery of [place] heart without angina pectoris - ICD9: 414.01, ICD10: I25.10 - stable and no angina - follow up in 6 months - continue with cardiology and orders placed by them. 7. Mixed hyperlipidemia - ICD9: 272.2, ICD10: E78.2 - good control - Continue current medication. - Encouraged following a low fat, low cholesterol diet. - Discussed the benefits of regular aerobic exercise and weight loss. 8. Elevated glucose - ICD9: 790.29, ICD10: R73.09 - HGB A1C 9. Anemia, unspecified type - ICD9: 285.9, ICD10: D64.9 - from recent GI Bleed - CBC + DIFF 10. Vitamin D deficiency - ICD9: 268.9, ICD10: E55.9 Start Vit D supplement as ordered Prescription instructions reviewed with patient as applicable. Potential red flag symptoms discussed with the patient. Reviewed appropriate action plan to take if red flag symptoms occur. Patient agreeable to treatment plan. Usha Gomes APRN.CJ documented in this encounter [facility] 12-11-2022 History of Present illness Narrative CC: Patient presents with: Recheck: Hosp follow up, GI bleed HPI Naheed Lynch is a 62 year old female who presents today for Hospital follow-up. Has not been seen in the office in well over a year. Facility: [facility] Date of visit: 12/04/22-12/06/22 Reason for visit: Pain in side then 2 days of dark sticky stool then bright red bleeding. Went to ER and admitted. Had a colonoscopy and EGD by Dr. Barrera on the showing colitis, diverticulosis, then a bleeding lesion in the duodenum. Hospital course: Hgb 9.7 on discharge no blood transfusions. Potassium 3.2 on discharge without any supplementation. Discharge: Was prescribed pantoprazole 2 times a day but had too much gas and could not tolerate. Is taking 1 time a day and tolerating well. Current symptoms: Denies any difficulty with abdominal pain, nausea, vomiting, fatigue, rectal bleeding, or shortness of breath. Last BM was yesterday no liquid but not formed. Light brown in color. Depression and anxiety: Patient not been on anything in over a year but requesting to start again. Her puppy was hit by a car and killed right before she came into the office today. Sleep: difficulty falling asleep Alcohol use: does not drink any alcohol Drug use: No Appetite: good Stresses: Major stressor: Health and Family Suicidal Thoughts: No suicidal ideation, intent or plan Support: Comes from multiple sources including family Counseling: Declines HTN: Ms. Lynch denies headache, chest pain, palpitations, dyspnea, and peripheral edema. Patient denies any side effects of her medication(s) and is compliant with their regimen. Blood pressure medication is prescribed by [facility] and states her blood pressure varies on her stress and anxiety and easily spikes up. States she is always over the place and can easily be 160/70s but varies depending on her anxiety and mental health cardiology aware. Last 3 Encounter BP Readings: Date: BP: 12/11/2022 168/90 05/23/2021 145/80 2019 169/85 REVIEW OF SYSTEMS General: no fevers, no chills, no night sweats, no recurrent infections, no change in appetite, no change in energy, and no significant changes in weight Respiratory: no cough, no wheezing, no shortness of breath, no hemoptysis Cardiovascular: no chest pain, no chest pressure, no palpitations, and no swelling GI: See HPI : No history of dysuria, frequency or incontinence Neurologic: No headache, weakness, numbness, tingling, dizziness, syncope. PAST MEDICAL HISTORY Diagnosis Date Bilateral optic neuritis Chronic interstitial cystitis Coronary artery disease 2007 one stent placed Dyspareunia Irritable bowel syndrome Mental disorder Other disorder of menstruation and other abnormal bleeding from female genital tract Unspecified essential hypertension Essential hypertension Uterovaginal prolapse, complete PAST SURGICAL HISTORY Procedure Laterality Date COLONOSCOP W/ OR W/O [facility] SPEC 08/23/2018 Colonoscopy EGD W/O OR W/BRUSH/WASH 04/25/2019 EGD HEART CATHETERIZATION stent HEART SURGERY HX LIGATE FALLOPIAN TUBE Tubal ligation PAST SURGICAL HISTORY OF 06/07/2006 right shoulder arthroscopy (biceps tenodesis and SLAP repair) PAST SURGICAL HISTORY OF 09/07/2011 neck surgery plate put in C 5-7 REMOVAL OF TONSILS,<12 Y/O Tonsillectomy VAGINAL HYSTERECTOMY Hysterectomy, vaginal ALLERGIES Codeine and Ultracet [Tramadol-Acetaminophen] MEDICATIONS atorvastatin (LIPITOR) 80 mg tablet Take 80 mg by mouth once daily. clopidogrel (PLAVIX) 75 mg tablet Take 75 mg by mouth once daily. ramipril (ALTACE) 10 mg capsule ramipril amLODIPine (NORVASC) 10 mg tablet Take 10 mg by mouth once daily. folic acid 1 mg tablet Take 1 tablet by mouth once daily. escitalopram oxalate (LEXAPRO) 10 mg tablet Take 1 tablet by mouth once daily. Appointment needed for further refills. Ferrous Gluconate 240 mg (27 mg iron) tablet Take 1 tablet by mouth three times daily with meals. fluticasone (FLONASE) 50 mcg/actuation nasal spray Use 2 Sprays in each nostril once daily. Rinse mouth after use. traZODone (DESYREL) 50 mg tablet Take 1 tablet by mouth daily at bedtime. ramipril (ALTACE) 10 mg capsule Take 1 capsule by mouth once daily. atorvastatin calcium(LIPITOR 80 MG TAB) Take one(1) tablet daily. clopidogrel bisulfate(PLAVIX 75 MG TAB) Take one(1) tablet daily. niacin(NIASPAN 500 MG TAB) Take one(1) tablet daily at bedtime. aspirin(ADULT LOW DOSE ASPIRIN 81 MG TAB, DELAYED RELEASE) Take one(1) tablet daily. ATENOLOL 25 MG TAB Take one(1) tablet daily. FAMILY HISTORY Problem Relation Age of Onset Heart Mother MD Coronary Artery Disease Mother Heart Father MD Coronary Artery Disease Father Heart Maternal Grandmother MD Heart Paternal Grandmother MD Breast Cancer Paternal Grandmother sinus cancer Heart Paternal Grandfather MD Hypertension Brother Ischemic Heart Disease Brother age 42 MD, etoh, tob and drug use Multiple Sclerosis No Family History Coronary Artery Disease Brother Social History Tobacco Use Smoking status: Every Day Packs/day: 1.00 Years: 35.00 Pack years: 35.00 Types: Cigarettes Smokeless tobacco: Never Tobacco comments: since age 14 Substance Use Topics Alcohol use: No Drug use: No PHYSICAL EXAM There were no vitals taken for this visit. General Appearance: well appearing, in no acute distress, alert Skin: Skin color, texture, turgor normal for age; Eyes: conjunctiva pink and moist, no icterus, sclera white, non-injected Lungs: Lungs clear to auscultation. No wheezing, rhonchi, rales. Heart: RRR without murmur, gallop, or rubs. No ectopy Abdomen: Abdomen soft, non-tender. Bowel sounds normal. No masses, organomegaly Extremities: No deformities, edema, skin discoloration, clubbing or cyanosis. Good capillary refill. HEPATITIS C SCREENING Never done HIV SCREENING Never done BP CONTROLLED (<130/80) Never done DTAP,TDAP,TD(1 - Tdap) due on 11/19/2007 SHINGRIX VACCINE(1 of 2) Never done PNEUMOCOCCAL(2 - PCV) due on 09/08/2012 COVID-19 VACCINE(4 - Booster for Pfizer series) due on 10/08/2021 ANNUAL PCP TEAM CHRONIC DISEASE VISIT due on 05/23/2022 LDL CHOLESTEROL due on 06/24/2022 DEPRESSION ASSESSMENT Never done MAMMOGRAM due on 02/06/2023 INFLUENZA(Season Ended) due on 05/04/2023 DIABETES SCREEN due on 06/24/2024 LIPID SCREEN due on 06/24/2026 COLORECTAL CANCER SCREENING due on 12/05/2032 PAP TESTING Discontinued HPV TESTING Discontinued DATA REVIEWED: Outside chart from [facility] reviewed. ASSESSMENT/PLAN: 1. History of recent hospitalization - ICD9: V13.9, ICD10: Z92.89 (primary diagnosis) - no further concerns of GI bleeding since scopes. Has appointment upcoming with Dr. Barrera. - CBC + DIFF - COMP METABOLIC PANEL - go to ER for abdominal pain, rectal bleeding, fatigue, shortness of breath, or any other urgent concerns. 2. Gastrointestinal hemorrhage associated with duodenal ulcer - ICD9: 532.40, ICD10: K26.4 Resolved As above - CBC + DIFF - COMP METABOLIC PANEL 3. Vitamin D deficiency - ICD9: 268.9, ICD10: E55.9 - VITAMIN D 25 HYDROXY 4. Hypokalemia - ICD9: 276.8, ICD10: E87.6 - will recheck and order supplementation if indicated - CBC + DIFF - COMP METABOLIC PANEL 5. Anemia, unspecified type - ICD9: 285.9, ICD10: D64.9 -needs re-evaluated for - CBC + DIFF - COMP METABOLIC PANEL 6. Anxiety and depression - ICD9: 300.00, 311, ICD10: F41.9, F32.A - uncontrolled, restarting lexapro - ESCITALOPRAM 10 MG TABLET - Reviewed concept of neurochemical imbalance wth depression/anxiety, treatment options and benefits of counseling in combination with medication. Also reviewed benefits of sleep hygeine, diet and exercise - Instructed patient to contact office or [id number] after-hours promptly should condition worsen or any new symptoms appear. - [facility] and after hours crisis line 7. Essential hypertension - ICD9: 401.9, ICD10: I10 - poor control, per patient this is directly related to mental health. Was crying throughout visit understandably so as a result of recent loss of pet. Patient feeling this is affecting her blood pressure and will call if BP is over 150/90 to come in earlier than 4 week follow up. Hopefully with decreased anxiety with the Lexapro will improve blood pressure. - Continue current medication(s) - Encouraged dietary sodium restriction/DASH diet - Recommended regular aerobic exercise. - Recommend home blood pressure monitoring, to bring results in on next visit - Goal of BP <130/80 8. Mixed hyperlipidemia - ICD9: 272.2, ICD10: E78.2 - to be determined upon return of lab results - Continue current medication. - Encouraged following a low fat, low cholesterol diet. - Discussed the benefits of regular aerobic exercise and weight loss. - LIPID PANEL BASIC Prescription instructions reviewed with patient as applicable. Potential red flag symptoms discussed with the patient. Reviewed appropriate action plan to take if red flag symptoms occur. Patient agreeable to treatment plan. Usha Gomes APRN.CNP documented in this encounter [facility] 12-08-2022 Miscellaneous Notes Pt called in and set up with Usha Gomes NP on 12/11/22 at 720 am. Called and left a voicemail for the Patient to call back and ask for a nurse to receive the providers message. Sharon Lopez RN Unfortunately patient has not been seen in almost 2 years. Needs to have a post hospital appointment [facility] so lab work can be ordered. Thank you Usha Gomes APRN.CNP Patient calls asking about status of this request. Please review and advise, Steffi Gómez RN Patient called to report that Dr. Barrera has instructed her to have a CBC lab drawn within the next 3 to 5 days following her colonoscopy. He is requesting for the lab order to be submitted by her PCP. She is to follow up with Dr. Barrera in one month. Please refer to discharge summary in scanned documents from 12/05/22. Please notify the patient if she needs to be seen by her PCP or if the lab order can be submitted without an office visit. Please notify the patient when the lab order is available in her chart. documented in this encounter [facility] 09-01-2022 Evaluation + Plan note Extrac dandre from: Title:Clinical Document Author:SIDDHARTH CALVO PM Date:09/01/22 [facility] ADMISSION HISTORY AN D PHYSICIAL CHIEF COMPLAINT: HISTORY OF PRESENT ILLNESS: REVIEW OF SYSTEMS: ACTIVE PROBLEMS: (6) CAD (coronary artery disease) (20388200) Hard of hearing (45305298) Heart murmur (769963982) Hypertension (8241115185) Osteoarthritis (4357486468) Tobacco use ([id number]) MEDICATIONS: Active Inpt Meds: cefOXitin Start: 09/01/22 6:23:00 EST, Dose = 1 gram(s), IV Piggyback, PREOP pharm, 18 hour(s), Stop: 09/02/22 0:22:00 EST, Rate: 200 mL/hr, Infuse over: 30 minute(s), 0, 09/01/22 6:23:00 EST Active PRN Meds: None One Time Meds: None Active IV Meds: Lactated Ringers Infusion 1,000 mL (LR 1,000 mL) Start: 09/01/22 6:23:00 EST, Rate: 125 mL/hr, 09/01/22 6:23:00 EST ALLERGIES: (1) codeine FAMILY HISTORY: SOCIAL HISTORY: PHYSICAL EXAM: VITALS: [id number](kg) 09/01 06:3836.5--[id number]/30 63.6 24 Hr Tmax: 36.5 at 09/01 06:38 36 Hr Tmax: 36.5 at 09/01 06:38 Vital Signs are the last 5 in the past 48 hours. Weights display the last 5 within 7 days. Initial Wt: 09/01 63.6 kg 140 lb Current Wt: 09/01 63.6 kg 140 lb GENERAL: HEENT: CARDIOVASCULAR: RESPIRATORY: ABDOMEN: EXREMETIES: NEUROLOGICAL: PSYCHIATRIC: LABS: No 36hr Lab Data DIAGNOSTICS: IMPRESSION: PLAN: History and Physical Update I have examined the patient; reviewed the H&P and there are no changes to the H&P unless noted below. [facility] 12-30-2022 Hospital Discharge instructions Patient Education 09/01/2022 07:56:35 Metatarsal Osteotomy, Care After Metatarsal Osteotomy, Care After This sheet gives you information about how to care for yourself after your procedure. Your health care provider may also give you more specific instructions. If you have problems or questions, contact your health care provider. What can I expect after the procedure? After the procedure, it is common to have: Soreness. Pain. Stiffness. Swelling. Follow these instructions at home: Medicines Take suwe-yuv-zcytyme and prescription medicines only as told by your health care provider. Ask your health care provider if the medicine prescribed to you can cause constipation. You may need to take steps to prevent or treat constipation, such as: ?Drink enough fluid to keep your urine pale yellow. ?Take iwri-qwz-ierhnjj or prescription medicines. ?Eat foods that are high in fiber, such as beans, whole grains, and fresh fruits and vegetables. ?Limit foods that are high in fat and processed sugars, such as fried or sweet foods. If you have a splint or walking boot: Wear it as told by your health care provider. Remove it only as told by your health care provider. Loosen it if your toes tingle, become numb, or turn cold and blue. Keep it clean. If it is not waterproof: ?Do not let it get wet. ?Cover it with a watertight covering when you take a bath or shower. Bathing Do not take baths, swim, or use a hot tub until your health care provider approves. Ask your healthcare provider if you may take showers. You may only be allowed to take sponge baths. Keep the bandage (dressing) dry. Incision care Follow instructions from your health care provider about how to take care of your incision. Make sure you: ?Wash your hands with soap and water before you change your bandage (dressing). If soap and water are not available, use hand vice president pharmacy. ?Change your dressing as told by your health care provider. ?Leave stitches (sutures), skin glue, or adhesive strips in place. These skin closures may need to stay in place for 2 weeks or longer. If adhesive strip edges start to loosen and curl up, you may trim the loose edges. Do not remove adhesive strips completely unless your health care provider tells you to do that. Check your incision area every day for signs of infection. Check for: ?More redness, swelling, or pain. ?Fluid or blood. ?Warmth. ?Pus or a bad smell. Managing pain, stiffness, and swelling If directed, put ice on the injured area. ?If you have a removable splint, remove it as told by your health care provider. ?Put ice in a plastic bag. ?Place a towel between your skin and the bag. ?Leave the ice on for 20 minutes, 2 3 times a day. Move your toes often to avoid stiffness and to lessen swelling. Raise (elevate) the injured area above the level of your heart while you are sitting or lying down. Driving Do not drive or use heavy machinery while taking prescription pain medicine. Do not drive for 24 hours if you were given a sedative during your procedure. Ask your health care provider when it is safe to drive if you have a dressing, splint, special shoe, or walking boot on your foot. General instructions Do not remove the bandage (dressing) around your foot until directed by your health care provider. If you were given a splint, special shoe, or walking boot, wear it as told by your health care provider. Do not use the injured limb to support your body weight until your health care provider says that you can. Use crutches or a walker as told by your health care provider. Return to your normal activities as told by your health care provider. Ask your health care provider what activities are safe for you. Do not use any products that contain nicotine or tobacco, such as cigarettes, e- cigarettes, and chewing tobacco. These can delay bone healing. If you need help quitting, ask your health care provider. Keep all follow-up visits as told by your health care provider. This is important. Contact a health care provider if: You have a fever. Your dressing becomes wet, loose, or stained with blood or discharge. You have pus or a bad smell coming from your incision or bandage. Your foot becomes red, swollen, or tender. You have pain or stiffness that does not get better or gets worse. You have tingling or numbness in your foot that does not get better or gets worse. Get help right away if: You develop a warm and tender swelling in your leg. You have chest pain. You have trouble breathing. Summary After the procedure, it is common to have soreness, pain, stiffness, and swelling. Follow instructions on caring for your incision, changing your dressing, and using weight support to protect your foot. Contact your health care provider if you have a fever, pus or a bad smell coming from your wound ordressing, or pain and stiffness do not get better. Get help right away if you develop a warm and tender swelling in your leg, have chest pain, or trouble breathing. This information is not intended to replace advice given to you by your health care provider. Make sure you discuss any questions you have with your health care provider. Document Released: 07/31/2016 Document Revised: 07/04/2019 Document Reviewed: 07/04/2019 [employer] Patient Education 2020 [employer]. 09/01/2022 07:55:59 Moderate Conscious Sedation, Adult, Care After Moderate Conscious Sedation, Adult, Care After These instructions provide you with information about caring for yourself after your procedure. Your health care provider may also give you more specific instructions. Your treatment has been plannedaccording to current medical practices, but problems sometimes occur. Call your health care provider if you have any problems or questions after your procedure. What can I expect after the procedure? After your procedure, it is common: To feel sleepy for several hours. To feel clumsy and have poor balance for several hours. To have poor judgment for several hours. To vomit if you eat too soon. Follow these instructions at home: For at least 24 hours after the procedure: Do not: ?Participate in activities where you could fall or become injured. ?Drive. ?Use heavy machinery. ?Drink alcohol. ?Take sleeping pills or medicines that cause drowsiness. ?Make important decisions or sign legal documents. ?Take care of children on your own. Rest. Eating and drinking Follow the diet recommended by your health care provider. If you vomit: ?Drink water, juice, or soup when you can drink without vomiting. ?Make sure you have little or no nausea before eating solid foods. General instructions Have a responsible adult stay with you until you are awake and alert. Take fnmi-pmx-nmrhlcm and prescription medicines only as told by your health care provider. If you smoke, do not smoke without supervision. Keep all follow-up visits as told by your health care provider. This is important. Contact a health care provider if: You keep feeling nauseous or you keep vomiting. You feel light-headed. You develop a rash. You have a fever. Get help right away if: You have trouble breathing. This information is not intended to replace advice given to you by your health care provider. Make sure you discuss any questions you have with your health care provider. Document Released: 06/10/2014 Document Revised: 08/02/2018 Document Reviewed: 12/09/2016 [employer] Patient Education 2020 [employer] Follow Up Care 07/19/2022 08:03:06 With:SIDDHARTH CALVO DPM, Surgery Address: [address] [place] [address], [place] [address] [facility] [place] [address]- When: Unknown Comments:Follow up Sep 07 @ 4:20 [facility] 12-30-2022 Summary of episode note Discharge Instructions Thank you for allowing [facility] to assist you with your healthcare needs. The following is importantdischarge information regarding your hospital visit. Your Care Team SHIRA BULLARD MD What to do next Follow Up Appointments Follow Up with SIDDHARTH CALVO DPM, Surgery When Why: Follow up Sep 07 @ 4:20 Where: [address] [place] [address], [address] [facility] [place] [address]- The Following Activity and Diet Have Been Ordered for You Discharge Activity - Ordered -- Other, Follow the post-operative/post-procedure activity instructions provided by your physician's office., 09/01/22 7:41:00 EST No qualifying data available. The Following Equipment Has Been Ordered for You Discharge Home Equipment Discharge Wound Care - Ordered -- Follow the post-operative/post-procedure wound care instructions provided by your physician's office., 09/01/22 7:41:00 EST The Following Treatments Have Been Ordered for You Discharge Labs No qualifying data available. Discharge Radiology No qualifying data available. Other Therapies No qualifying data available. Post Acute Orders No qualifying data available. Someone Will Contact You Regarding These Home Health Referrals No home referrals have been ordered for you. No one will call you. Allergies codeine (Nausea and vomiting) Medications Please ask your primary doctor or pharmacist before taking any other medication not listed, including over the counter drugs, herbal medications, vitamins and or supplements as they may interact withyour home medications. What How Much When Instructions Last Dose Unchanged amLODIPine (amLODIPine 2.5 mg oral tablet) 2 tab(s) by mouth Once a day Unchanged aspirin 81 Milligram by mouth Every day Take 81 mg aspirin twice daily with food for 4 weeks postoperatively for DVT prophylaxis Unchanged atenolol (atenolol 25 mg oral tablet) 1 tab(s) by mouth Every day Unchanged atorvastatin (atorvastatin 80 mg oral tablet) 1 tab(s) by mouth Every day Unchanged clopidogrel (clopidogrel 75 mg oral tablet) 1 tab(s) by mouth Every day Unchanged ramipril (ramipril 10 mg oral capsule) 2 cap by mouth Every day Please take this list to your next doctor s visit. Bring all medications you take, including over the counter medications, herbals and other supplements with you to your doctor s visit. Patients and families are reminded to discard old lists and to update any records with all medication providers or retail pharmacies. Education Materials Metatarsal Osteotomy, Care After This sheet gives you information about how to care for yourself after your procedure. Your health care provider may also give you more specific instructions. If you have problems or questions, contact your health care provider. What can I expect after the procedure? After the procedure, it is common to have: Soreness. Pain. Stiffness. Swelling. Follow these instructions at home: Medicines Take qtge-pyx-avwtavv and prescription medicines only as told by your health care provider. Ask your health care provider if the medicine prescribed to you can cause constipation. You may need to take steps to prevent or treat constipation, such as: ? Drink enough fluid to keep your urine pale yellow. ? Take cfyc-rav-mjmgtmw or prescription medicines. ? Eat foods that are high in fiber, such as beans, whole grains, and fresh fruits and vegetables. ? Limit foods that are high in fat and processed sugars, such as fried or sweet foods. If you have a splint or walking boot: Wear it as told by your health care provider. Remove it only as told by your health care provider. Loosen it if your toes tingle, become numb, or turn cold and blue. Keep it clean. If it is not waterproof: ? Do not let it get wet. ? Cover it with a watertight covering when you take a bath or shower. Bathing Do not take baths, swim, or use a hot tub until your health care provider approves. Ask your healthcare provider if you may take showers. You may only be allowed to take sponge baths. Keep the bandage (dressing) dry. Incision care Follow instructions from your health care provider about how to take care of your incision. Make sure you: ? Wash your hands with soap and water before you change your bandage (dressing). If soap and water are not available, use hand vice president pharmacy. ? Change your dressing as told by your health care provider. ? Leave stitches (sutures), skin glue, or adhesive strips in place. These skin closures may need to stay in place for 2 weeks or longer. If adhesive strip edges start to loosen and curl up, you may trim the loose edges. Do not remove adhesive strips completely unless your health care provider tells you to do that. Check your incision area every day for signs of infection. Check for: ? More redness, swelling, or pain. ? Fluid or blood. ? Warmth. ? Pus or a bad smell. Managing pain, stiffness, and swelling If directed, put ice on the injured area. ? If you have a removable splint, remove it as told by your health care provider. ? Put ice in a plastic bag. ? Place a towel between your skin and the bag. ? Leave the ice on for 20 minutes, 2 3 times a day. Move your toes often to avoid stiffness and to lessen swelling. Raise (elevate) the injured area above the level of your heart while you are sitting or lying down. Driving Do not drive or use heavy machinery while taking prescription pain medicine. Do not drive for 24 hours if you were given a sedative during your procedure. Ask your health care provider when it is safe to drive if you have a dressing, splint, special shoe, or walking boot on your foot. General instructions Do not remove the bandage (dressing) around your foot until directed by your health care provider. If you were given a splint, special shoe, or walking boot, wear it as told by your health care provider. Do not use the injured limb to support your body weight until your health care provider says that you can. Use crutches or a walker as told by your health care provider. Return to your normal activities as told by your health care provider. Ask your health care provider what activities are safe for you. Do not use any products that contain nicotine or tobacco, such as cigarettes, e- cigarettes, and chewing tobacco. These can delay bone healing. If you need help quitting, ask your health care provider. Keep all follow-up visits as told by your health care provider. This is important. Contact a health care provider if: You have a fever. Your dressing becomes wet, loose, or stained with blood or discharge. You have pus or a bad smell coming from your incision or bandage. Your foot becomes red, swollen, or tender. You have pain or stiffness that does not get better or gets worse. You have tingling or numbness in your foot that does not get better or gets worse. Get help right away if: You develop a warm and tender swelling in your leg. You have chest pain. You have trouble breathing. Summary After the procedure, it is common to have soreness, pain, stiffness, and swelling. Follow instructions on caring for your incision, changing your dressing, and using weight support to protect your foot. Contact your health care provider if you have a fever, pus or a bad smell coming from your wound ordressing, or pain and stiffness do not get better. Get help right away if you develop a warm and tender swelling in your leg, have chest pain, or trouble breathing. This information is not intended to replace advice given to you by your health care provider. Make sure you discuss any questions you have with your health care provider. Document Released: 07/31/2016 Document Revised: 07/04/2019 Document Reviewed: 07/04/2019 [employer] Patient Education [employer] Moderate Conscious Sedation, Adult, Care After These instructions provide you with information about caring for yourself after your procedure. Your health care provider may also give you more specific instructions. Your treatment has been plannedaccording to current medical practices, but problems sometimes occur. Call your health care provider if you have any problems or questions after your procedure. What can I expect after the procedure? After your procedure, it is common: To feel sleepy for several hours. To feel clumsy and have poor balance for several hours. To have poor judgment for several hours. To vomit if you eat too soon. Follow these instructions at home: For at least 24 hours after the procedure: Do not: ? Participate in activities where you could fall or become injured. ? Drive. ? Use heavy machinery. ? Drink alcohol. ? Take sleeping pills or medicines that cause drowsiness. ? Make important decisions or sign legal documents. ? Take care of children on your own. Rest. Eating and drinking Follow the diet recommended by your health care provider. If you vomit: ? Drink water, juice, or soup when you can drink without vomiting. ? Make sure you have little or no nausea before eating solid foods. General instructions Have a responsible adult stay with you until you are awake and alert. Take fjfz-nnp-ceydzju and prescription medicines only as told by your health care provider. If you smoke, do not smoke without supervision. Keep all follow-up visits as told by your health care provider. This is important. Contact a health care provider if: You keep feeling nauseous or you keep vomiting. You feel light-headed. You develop a rash. You have a fever. Get help right away if: You have trouble breathing. This information is not intended to replace advice given to you by your health care provider. Make sure you discuss any questions you have with your health care provider. Document Released: 06/10/2014 Document Revised: 08/02/2018 Document Reviewed: 12/09/2016 [employer] Patient Education [employer] Additional Information VACCINATE! IT SAVES LIVES! Members of the community who have not yet received the COVID-19 vaccine and would like to receive it can visit one of [facility] vaccine clinics. There are many vaccine clinic locations within the [facility]. For locations and available times, please visit [email or web address]/. It is important to note that some COVID mobile vaccine clinics are held outdoors and may be canceled in rainy or stormy conditions. To learn more about pediatric vaccinations (ages 5-11), we invite you to visit the [facility] webpage. [email or web address] learn more about the COVID-19 vaccine, we invite you to visit the [facility] website for a list of frequently asked questions. [email or web address].pdf [facility] Patient Portal Access Instructions: Stay connected with your healthcare team and access your personal medical information anytime with the [facility] Patient Portal.If you would like a full copy of your medical records, please contact the [facility] Medical Records Department, Sunday through Sunday between 8a.m. and 4:30p.m. Please follow the directions below to access the portal: 1.Access the email account you provided upon registration to the hospital.2.Look for an invitation email from [facility].3.Open the email and access the invitation link: Accept Invitation to [facility])4.Fill in the required arias to create your account. Sign into [email or web address] with your username and password that you created in the above steps to stay up to date. You can then view a summary of results, a summary of your visits, and the ability to download your summaries to your computer or send the information securely to a physician. Remember that your healthcare information is confidential, so carefully consider who you will allow to register on the [facility] Patient Portal for access to your information. You can also access the [facility] Patient Portal on the [employer]. Simply click on Health Records under [place] and then click on the [employer] logo. HOW TO SAFELY DISPOSE OF PRESCRIPTION MEDICATIONS Please use one of the following methods to safely dispose of your unused medications. 1.Use a drug disposal kit: the drug disposal pouch allows you to safely discard your old and unuseddrugs. Ask your nurse to give you one when you are discharged.2.Visit a local take-back location: Many local pharmacies and police departments have programs that collect old and unwanted prescriptiondrugs. Call your local pharmacy or go to http://AT Internet.Bfly/6C5Yo7b to find one close to you.3.Make use of household items: Use cat litter or old coffee grounds to dispose medications if other options arenot available. Mix your drugs with these household products, seal them in an airtight container andthrow it into the garbage. Call [facility]: [phone] to be sure your drugs can be disposed of in this way. Some medicines may require a different approach.4.Never flush your medications down the toilet. IF YOU HAVE BEEN PRESCRIBED AN OPIOID FOR PAIN If you have been prescribed an opioid (such as hydrocodone, oxycodone or morphine), it is critical to understand the possible side effects and risks of opioid pain medications. Even when taken as directed, opioids can have several side effects including: Tolerance, meaning you might need to take more of a medication for the same pain relief. Nausea, vomiting and/or constipation. Sleepiness, dizziness, dry mouth, confusion, depression or itching. Physical dependence, meaning you have withdrawal symptoms when a medication is stopped, can develop within a few days. KNOW YOUR RESPONSIBILITIES It is important to know exactly how much and how often to take the opioid pain medications you are prescribed. Never take opioids in higher amounts or more often than prescribed. Do not combine opioids with alcohol or other drugs that cause drowsiness, such as benzodiazepines, also known as benzos, including diazepam and alprazolam, muscle relaxants or sleep aids. Never sell or share prescription opioids. This is illegal. Store opioids in a secure place and out of reach of others (including children, family, friends and visitors). The last page of this document has been signed and retained as a CHART COPY. Signatures Patient Education Materials Metatarsal Osteotomy, Care After Moderate Conscious Sedation, Adult, Care After Medication Leaflets My discharge plan and instructions have been reviewed and explained to me and I,NAHEED LYNCH understand my current condition and have read and understand these discharge instructions. I have received a written copy of the plan/instructions. If I have questions, I am aware that I should contact my doctor. 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 Signature: Date/Time: Relationship to Patient: Witness Name/Signature: Date/Time: [facility]12-30-2022 Anesthesiology Consult note Patient: NAHEED LYNCH Age: 62 years Sex: Female : 1960 Associated Diagnoses: None Author: ALVIN MACK APRN-[employer] REPRESENTATIVE Assessment Postanesthesia assessment Vitals: Vital signs from flowsheet : Vital Signs 09/01/2022 7:30 EST Heart Rate Monitored 46 bpm bpm Respiratory Rate - Anes 24 br/min br/min Systolic Blood Pressure Non-Invasive 98 mmHg mmHg Diastolic Blood Pressure Non-Invasive 57 mmHg mmHg 09/01/2022 7:25 EST Heart Rate Monitored 48 bpm bpm Respiratory Rate - Anes 15 br/min br/min Systolic Blood Pressure Non-Invasive 110 mmHg mmHg Diastolic Blood Pressure Non-Invasive 61 mmHg mmHg 09/01/2022 7:20 EST Heart Rate Monitored 50 bpm bpm Respiratory Rate - Anes 13 br/min br/min Systolic Blood Pressure Non-Invasive 122 mmHg mmHg Diastolic Blood Pressure Non-Invasive 66 mmHg mmHg 09/01/2022 7:15 EST Heart Rate Monitored 50 bpm bpm Respiratory Rate - Anes 16 br/min br/min Systolic Blood Pressure Non-Invasive 144 mmHg mmHg Diastolic Blood Pressure Non-Invasive 68 mmHg mmHg 09/01/2022 7:10 EST Heart Rate Monitored 50 bpm bpm Respiratory Rate - Anes 17 br/min br/min Systolic Blood Pressure Non-Invasive 136 mmHg mmHg Diastolic Blood Pressure Non-Invasive 62 mmHg mmHg 09/01/2022 7:05 EST Heart Rate Monitored 51 bpm bpm Respiratory Rate - Anes 13 br/min br/min Systolic Blood Pressure Non-Invasive 151 mmHg mmHg Diastolic Blood Pressure Non-Invasive 73 mmHg mmHg 09/01/2022 7:00 EST Heart Rate Monitored 52 bpm bpm Respiratory Rate - Anes 0 br/min br/min Systolic Blood Pressure Non-Invasive 147 mmHg mmHg Diastolic Blood Pressure Non-Invasive 100 mmHg mmHg 09/01/2022 6:38 EST Temperature Temporal Artery 36.5 DegC Peripheral Pulse Rate 52 bpm LOW Respiratory Rate 10 br/min Systolic Blood Pressure Non-Invasive 158 mmHg HI Diastolic Blood Pressure Non-Invasive 80 mmHg , Measurements from flowsheet . Mental status: alert & oriented x 4. Respiratory function: respirations are non-labored. Respiratory support: none. CV function: Normal rate. Cardiovascular support: none. Pain. Nausea status: see nursing documentation of medications. Postoperative hydration status: within normal limits. Digitally Signed by ALVIN MACK on 09/01/2022 07:35 AM [facility]12-30-2022 Anesthesiology Consult note Patient: NAHEED LYNCH Age: 62 years Sex: Female : 1960 Associated Diagnoses: None Author: ALVIN MACK Preoperative Information Time of last food or liquid consumption: 09/01/2022 00:00:00 Anesthesia history Patient's history: negative. Family's history: negative. Health Status Allergies: Nonallergic Reactions (Selected) Severity Not Documented Codeine- Nausea and vomiting., Allergies (1) ActiveReaction codeineNausea and vomiting Current medications: (Selected) Inpatient Medications Ordered LR 1,000 mL: 125 mL/hr, Intravenous Documented Medications Documented amLODIPine 2.5 mg oral tablet: 5 mg, 2 tab(s), Oral, qDay, 30 tab(s), 0 Refill(s) aspirin: 81 mg, 1 tab(s), Oral, Daily, Take 81 mg aspirin twice daily with food for 4 weeks postoperatively for DVT prophylaxis, 0 Refill(s) atenolol 25 mg oral tablet: 25 mg, 1 tab(s), Oral, Daily, 0 Refill(s) atorvastatin 80 mg oral tablet: 80 mg, 1 tab(s), Oral, Daily, 0 Refill(s) clopidogrel 75 mg oral tablet: 75 mg, 1 tab(s), Oral, Daily, 0 Refill(s) ramipril 10 mg oral capsule: 20 mg, 2 cap(s), Oral, Daily, 0 Refill(s), Medications (1) Active Scheduled: (0) Continuous: (1) Lactated Ringers 1,000 mL 1,000 mL, Intravenous, 125 mL/hr PRN: (0) Problem list: Active Problems (6) CAD (coronary artery disease) Hard of hearing Heart murmur Hypertension Osteoarthritis Tobacco use Histories Past Medical History: No active or resolved past medical history items have been selected or recorded. Family History: Hypertension Mother Father Cardiovascular disease Mother Father Brother Procedure history: Left hip ([id number]) on 05/24/2021 at 61 Years. ORIF - Open reduction and internal fixation of fracture ([id number]) in 2019 at 59 Years. Comments: 05/13/2021 12:00 JOANA Guaman LEFT HIP Hysterectomy ([id number]). Shoulder ([id number]). Comments: 05/13/2021 12:00 JOANA Guaman SURGERY, RIGHT Neck ([id number]). Comments: 05/24/2021 9:27 Lalita Sellers RN neck surgery on her spine. Stented coronary artery ([id number]). Cardiac catheterization ([id number]). Comments: 04/18/2022 10:23 Karen Mackenzie RN x2 Cervical spinal fusion ([id number]). Comments: 04/18/2022 10:22 Karen Mackenzie RN [id number] Social History Social & Psychosocial Habits Alcohol 05/13/2021 Use: Never Substance Abuse 05/13/2021 Use: Never Tobacco 04/18/2022 Tobacco Use: 10 or more cigarettes (1/ Type: Cigarettes Number of years: 40 Home/Environment 05/24/2021 Domestic Concerns Denies Living situation: Home with assistance Lives In Single level home Current Home Treatments None Special Services and Community Resources None Financial concerns: No Spouse Name JERRY Marital Status of Patient if Patient Independent Adult: Nutrition/Health 05/24/2021 Type of diet: Regular Appetite Good Eating Difficulties None Enteral Feedings No TPN Feedings No Skin Breakdown/Decubitus Ulcers No Caffeine intake amount: coffee/tea . Physical Examination Vital Signs 09/01/2022 6:38 EST Temperature Temporal Artery 36.5 DegC Peripheral Pulse Rate 52 bpm LOW Respiratory Rate 10 br/min Systolic Blood Pressure Non-Invasive 158 mmHg HI Diastolic Blood Pressure Non-Invasive 80 mmHg Vital Signs(last 24 hrs) Last Charted Resp Rate C 10br/min (SEP 01:38) SBPH 158mmHg (SEP 01:) DBP80 mmHg (SEP 01) Measurements from flowsheet : Measurements 09/01/2022 6:38 EST Height 171 cm Height in inches 67.3 inch(es) Admission Weight 63.6 kg Weight Lbs 139.9 lb Weight Method Stated [place] Body Weight 62.34 kg Admission Body Mass Index 21.75 m2 Pain assessment: Pain Assessment 09/01/2022 6:38 EST Primary Pain Intensity 4 Pain Scale Type 0-10 Pain scale . General: Alert and oriented. Airway: Normal temporomandibular joint mobility, Normal mouth, Normal neck range of motion. Mallampati classification: III (soft palate, base of uvula visible). Dentition Evaluation: Dentures, partial plate, Denies loose/chipped teeth. Respiratory: Respirations are non-labored. Cardiovascular: Normal rate. Neurologic: Alert, Oriented. Review / Management Results review: No qualifying data available , Lab results 09/01/2022 7:03 EST cefOXitin 1 gram(s) gram(s) Sodium Chloride 0.9% 100 mL mL 09/01/2022 6:57 EST SN - Preop - CTm Pt in SDS Room 09/01/2022 6:22 SN - Preop - CTm Pt Ready for OR/Proced 09/01/2022 6:43 09/01/2022 6:57 EST SN - CTm - Anesthesia Start Time Anesthesia Start 09/01/2022 6:52 EST [place] History and Physical 09/01/2022 6:45 EST SN - SP - Prep Agents Chloraprep SN - SP - HR - Method N/A 09/01/2022 6:44 EST SN - Proc - Anesthesia Type General SN - Proc - Actual Procedure OSTEOTOMY 5TH METATARSAL LEFT FOOT 09/01/2022 6:44 EST SN - PP - Body Position Supine Standard Intra-op 09/01/2022 6:43 EST SN - PTCare - Anti-thromboembolism Tatiana Sequential Compression Device (SCD) 09/01/2022 6:43 EST SN - Assess - LOC Alert, Awake SN - Assess - Orientation Oriented X 3 SN - Assess - Post-op Skin Integrity Intact/Dry 09/01/2022 6:43 EST SN - MD - Medication MARCAINE BUPIVACAINE 0.5% 30ML SN - MD - Route of Administration Local SN - MD - By (Single) SN - MD - By (Single) 09/01/2022 6:42 EST SN - GCD - Post-operative Diagnosis TAILORS BUNION, LEFT FOOT SN - GCD - Case Level Level 4 09/01/2022 6:42 EST SN - Cul - Culture Type No Specimen per Surgeon 09/01/2022 6:41 EST SN - CAt - Case Attendee SN - CAt - Case Attendee SN - CAt - Case Attendee SN - CAt - Case Attendee SN - CAt - Case Attendee SN - CAt - Case Attendee SN - CAt - Case Attendee SN - CAt - Case Attendee SN - CAt - Case Attendee SN - CAt - Case Attendee SN - CAt - Role Performed Primary Surgeon SN - CAt - Role Performed Cutting And Printing Machine Operator 1 SN - CAt - Role Performed Scrub 1 SN - CAt - Role Performed Java Lead 1 SN - CAt - Role Performed PLAYERS CLUB REPRESENTATIVE 09/01/2022 6:38 EST Height 171 cm Height in inches 67.3 inch(es) Admission Weight 63.6 kg Weight Lbs 139.9 lb Weight Method Stated [place] Body Weight 62.34 kg Admission Body Mass Index 21.75 m2 Temperature Temporal Artery 36.5 DegC Peripheral Pulse Rate 52 bpm LOW Respiratory Rate 10 br/min Systolic Blood Pressure Non-Invasive 158 mmHg HI Diastolic Blood Pressure Non-Invasive 80 mmHg Primary Pain Intensity 4 Pain Scale Type 0-10 Pain scale Monitor Alarms On and Limits Checked Heart Sounds ICU S1S2 Heart Rhythm Regular Oxygen Therapy Room air Oxygen Saturation 96 % Abdomen Description Non-distended, Symmetric, Soft Abdomen Palpation Non-Tender, Soft Bowel Sounds All Quadrants Present Urinary Elimination Voiding, no difficulties Skin Temperature Warm Skin Description [place] Skin Integrity Intact IV Present Present Antecubital Right 09/01/2022 20 gauge Peripheral IV Activity: Insert new site Peripheral IV Dressing Condition: Clean, Dry, Intact Peripheral IV Dressing Activity: Transparent dressing Peripheral IV Line Status/Patency: Flushes easily Peripheral IV Line Care: Secured with tape Peripheral IV Site Condition: No complications Peripheral IV Equipment: Extension set, PRN Adaptor Peripheral IV Number of Attempts: 1 Extremity Movement Equal Characteristics of Speech Clear Level of Consciousness Alert HIMA Yes Strength All Extremities Strong Affect/Behavior Appropriate, Calm, Cooperative Orientation Oriented x 4 Allergies Yes Mortgage Manager On Yes Consent Form Signed Yes Patient Dressed In Hospital gown, No undergarments CHG Preoperative Wash/Wipe Night before procedure, Day of procedure History & Physical Update On Chart Yes History & Physical On Chart Yes Orientation Assessment Oriented x 4 Activity Status ADL Awake Assistive Device None SCD On/Re-applied right knee high NPO Status Maintained Standard Safety ID band on, Call device within reach, Bed in low position, Wheels locked, Upper/Half-Length side-rails up, Safety level maintained, Non- Slip footwear Demonstrates Correct Call Light Use Yes Lactated Ringers Injection Begin Bag 1,000 mL mL Patient ID Band on and Verified Yes Implants Verified Yes Pacemaker/AICD Verified Yes Anesthesia Consent Signed Yes Blood Consent Signed Yes Last Fluid Intake 08/31/2022 20:00 Last Food Intake 08/31/2022 20:00 Last Void 09/01/2022 6:00 09/01/2022 6:28 EST Privacy Restrictions Requested None Sensory Deficits Hearing deficit, left ear, Hearing deficit, right ear Safety Brochure Information Reviewed Unable to complete [place] Welcome Video Viewed No Teaching Evaluation No further teaching needed Admission Note-Nursing Same Day Patient History (Modified) . Assessment and Plan [place] [employer]hesi[employer] (ASA) physical status classification: Class III. Anesthetic Preoperative Plan Anesthetic technique: MAC. Informed consent: signed by patient. Digitally Signed by ALVIN MACK on 09/01/2022 07:09 AM [facility]12-30-2022 Note [facility] ADMISSION HISTORY AND PHYSICIAL CHIEF COMPLAINT: HISTORY OF PRESENT ILLNESS: REVIEW OF SYSTEMS: ACTIVE PROBLEMS: (6) CAD (coronary artery disease) ([id number]) Hard of hearing (87680037) Heart murmur (832860249) Hypertension (4971940476) Osteoarthritis ([id number]) Tobacco use ([id number]) MEDICATIONS: Active Inpt Meds: cefOXitin Start: 09/01/22 6:23:00 EST, Dose = 1 gram(s), IV Piggyback, PREOP pharm, 18 hour(s), Stop: 09/02/22 0:22:00 EST, Rate: 200 mL/hr, Infuse over: 30 minute(s), 0, 09/01/22 6:23:00 EST Active PRN Meds: None One Time Meds: None Active IV Meds: Lactated Ringers Infusion 1,000 mL (LR 1,000 mL) Start: 09/01/22 6:23:00 EST, Rate: 125 mL/hr, 09/01/22 6:23:00 EST ALLERGIES: (1) codeine FAMILY HISTORY: SOCIAL HISTORY: PHYSICAL EXAM: VITALS: [id number](kg) 09/01 06:3836.5--[id number]/30 63.6 24 Hr Tmax: 36.5 at 09/01 06:38 36 Hr Tmax: 36.5 at 09/01 06:38 Vital Signs are the last 5 in the past 48 hours. Weights display the last 5 within 7 days. Initial Wt: 09/01 63.6 kg 140 lb Current Wt: 09/01 63.6 kg 140 lb GENERAL: HEENT: CARDIOVASCULAR: RESPIRATORY: ABDOMEN: EXREMETIES: NEUROLOGICAL: PSYCHIATRIC: LABS: No 36hr Lab Data DIAGNOSTICS: IMPRESSION: PLAN: History and Physical Update I have examined the patient; reviewed the H&P and there are no changes to the H&P unless noted below. Digitally Signed by SIDDHARTH CALVO DPM on 09/01/2022 06:52 AM [facility]08-26-2022 Evaluation + Plan noteExtracted from: Title:Clinical Document Author:SIDDHARTH CALVO PM Date:04/28/22 [place] ADMISSION HISTORY AN D PHYSICIAL CHIEF COMPLAINT: HISTORY OF PRESENT ILLNESS: REVIEW OF SYSTEMS: ACTIVE PROBLEMS: (6) CAD (coronary artery disease) ([id number]) Hard of hearing (56656088) Heart murmur (915594499) Hypertension (8946873495) Osteoarthritis (0466779324) Tobacco use ([id number]) MEDICATIONS: Active Inpt Meds: None Active PRN Meds: HYDROmorphone (Dilaudid ( PACU )) Start: 04/28/22 7:12:00 EDT, Dose = 0.25 mg, IV Push, q5min, PRN, Pain, scale 4-6, 8 dose(s), Stop: Limited # of times, 04/28/22 7:12:00 EDT fentaNYL (fentaNYL ( PACU )) Start: 04/28/22 7:12:00 EDT, Dose = 50 mcg, = 1 mL, IV Push, q5min, PRN, Pain, breakthrough, 4 dose(s), Stop: Limited # of times, 04/28/22 7:12:00 EDT meperidine (Demerol (PACU)) Start: 04/28/22 7:12:00 EDT, Dose = 25 mg, = 1 mL, IV Bolus, q3h, PRN, Pain, breakthrough, 04/28/22 7:12:00 EDT ondansetron (Zofran ( PACU )) Start: 04/28/22 7:12:00 EDT, Dose = 4 mg, = 2 mL, IV Push, AsDirected, PRN, Nausea/Vomiting, 1 dose(s), Stop: Limited # of times, 04/28/22 7:12:00 EDT One Time Meds: None Active IV Meds: Lactated Ringers Infusion 1000 mL (LR 1000 mL) Start: 04/28/22 6:02:00 EDT, Rate: 125 mL/hr, 04/28/22 6:02:00 EDT Lactated Ringers Infusion 1000 mL (LR 1000 mL) Start: 04/28/22 7:12:00 EDT, Rate: 20 mL/hr, 04/28/22 7:12:00 EDT ALLERGIES: (1) codeine FAMILY HISTORY: SOCIAL HISTORY: PHYSICAL EXAM: VITALS: [id number](kg) 04/28 06:[id number]/26 63.6 24 Hr Tmax: 36 at 04/28 06:15 36 Hr Tmax: 36 at 04/28 06:15 Vital Signs are the last 5 in the past 48 hours. Weights display the last 5 within 7 days. Initial Wt: 04/28 63.6 kg 140 lb Current Wt: 04/28 63.6 kg 140 lb GENERAL: HEENT: CARDIOVASCULAR: RESPIRATORY: ABDOMEN: EXREMETIES: NEUROLOGICAL: PSYCHIATRIC: LABS: No 36hr Lab Data DIAGNOSTICS: IMPRESSION: PLAN: History and Physical Update I have examined the patient; reviewed the H&P and there are no changes to the H&P unless noted below. [facility] 08-26-2022 Hospital Discharge instructions Patient Education 04/28/2022 08:20:12 Hand Washing, Oikq-ox-Vkyu Hand Washing Germs such as bacteria, viruses, and parasites are found everywhere. They can be in the air and water. They can also be on surfaces like food, door handles, and your skin. Every day, your hands touchgerms. Many of these germs can make you and your family sick. Washing your hands is one of the bestways to lower your risk of getting and sharing germs. When should I wash my hands? You should wash your hands whenever you think they are dirty. You should also wash your hands: Before: ?Visiting a baby or anyone with a weakened disease-fighting system (immunesystem). ?Putting in and taking out contact lenses. After: ?Using the bathroom or helping someone else use the bathroom. ?Working or playing outside. ?Touching or taking out the garbage. ?Touching anything dirty around your home. ?Sneezing, coughing, or blowing your nose. ?Using a phone, including your mobile phone. ?Touching an animal, animal food, animal poop, or its toys or leash. ?Touching money. ?Using household ceiling cleaner or poisonous chemicals. ?Handling dirty clothes, bedding, or rags. ?Using public transportation. ?Going shopping, especially if you use a shopping cart or basket. ?Shaking hands. ?Handling livestock, such as cows or sheep. Before and after: ?Preparing food. ?Eating. ?Visiting or taking care of someone who is sick. This includes touching used tissues, toys, and clothes. ?Changing a bandage (dressing). ?Taking care of an injury or wound. ?Giving or taking medicine. ?Preparing a bottle for a baby. ?Feeding a baby or young child. ?Changing a diaper. What is the right way to wash my hands? 1.Wet your hands with clean, running water. Turn off the water or move your hands out of the running water. 2.Apply liquid soap or bar soap to your hands. 3.Rub your hands together quickly to create lather. 4.Keep rubbing your hands together for at least 20 seconds. Thoroughly scrub all parts of your hands. This includes scrubbing under your fingernails and between your fingers. 5.Rinse your hands with clean, running water. Do this until all the soap is gone. 6.Dry your hands using an air dryer or a clean paper or cloth towel, or let your hands air-dry. Do not use your clothing or a dirty towel to dry your hands. If you are in a public restroom, use your towel: To turn off the water faucet. To open the bathroom door. How can I clean my hands if I do not have soap and water? If soap and clean water are not available, use a hand-washing wipe, spray, or gel (hand vice president pharmacy).Use one that contains at least 60% alcohol. If you are handling food, gels are not recommended as areplacement for hand washing with soap and water. To use these products, follow the directions on the product, and: Apply enough product to cover your hands. Make sure you wipe, rub, or spray the product so that it reaches every part of your hands and wrists. Include the backs of your hands, between your fingers, and under your fingernails. Rub the product onto your hands until it dries. Summary Every day, your hands touch germs. Many of these germs can make you and your family sick. Washing your hands is one of the best ways to lower your risk of getting and sharing germs. If soap and clean water are not available, use a hand-washing wipe, spray, or gel. This information is not intended to replace advice given to you by your health care provider. Make sure you discuss any questions you have with your health care provider. Document Released: 08/02/2009 Document Revised: 05/29/2018 Document Reviewed: 05/29/2018 [employer] Patient Education 2020 [employer]. 04/28/2022 08:19:55 How to Use Cold Therapy, Xzse-iq-Tczs How to Use Cold Therapy Cold therapy, or cryotherapy, is a treatment that uses cold temperatures to treat an injury or medical condition. It includes using cold packs or ice packs to reduce pain and swelling. Only use cold therapy if your doctor says it is okay. What are the risks? Generally, cold therapy is a safe treatment. However, it is not safe for: People who are not able to say they are in pain. These include small children and people who have memory problems. People who have certain conditions, such as: ?A problem in the vessels that slows blood flow to the fingers and toes (Raynaud's syndrome). ?Feeling very cold easily (cold hypersensitivity). ?Lack of feeling in the area being iced. Cold therapy may not be safe for people who have other conditions. Do not use it without talking toyour doctor if you have: A heart condition. High blood pressure. Open or healing wounds. An infection. Pain and swelling in your joints (rheumatoid arthritis). Poor blood flow in the body. Diabetes. Certain skin conditions. How can I make a cold pack? When using a cold pack at home to reduce pain and swelling, you can use: A silica gel cold pack that has been left in the freezer. You can buy this online or in stores. A sealable plastic bag that has been filled with crushed ice. A washcloth or paper towels soaked in cold (or ice) water. A plastic bag of frozen vegetables. Throw them away when you are finished using them as a cold pack. Supplies needed: A cold pack. A towel. This can be dry or damp, based on what you like. How to use cold therapy 1.Have your cold pack ready. 2.Place a towel between the cold pack and your skin. You may also wrap the cold pack in a towel. 3.Put the cold pack on the affected area. Keep it on for no more than 20 minutes at a time. 4.Check your skin after 5 minutes to make sure that there is no damage to the area. Check for: White spots on your skin. Your skin may look blotchy or mottled. Skin that looks blue or pale. Skin that feels waxy or hard. 5.Repeat these steps as many times each day as told by your doctor. Always use a towel to avoid direct contact with your skin. Contact a doctor if: You start to have white spots on your skin. This may give your skin a blotchy or mottled look. Your skin turns blue or pale. Your skin becomes waxy or hard. Your swelling gets worse. Summary Cold therapy, or cryotherapy, is used to treat an injury or other conditions. It includes using cold packs or ice packs to reduce pain and swelling. Cold therapy is not safe for people who are not able to say they are in pain. When using cold packs or ice packs, always place a towel between the cold source and your skin. Check your skin after 5 minutes of icing it. This is to make sure that there is no skin damage. Contact your doctor if you notice changes in your skin or your swelling gets worse. This information is not intended to replace advice given to you by your health care provider. Make sure you discuss any questions you have with your health care provider. Document Released: 02/05/2009 Document Revised: 05/19/2019 Document Reviewed: 05/19/2019 [employer] Patient Education 2020 [employer]. 04/28/2022 08:19:42 Monitored Anesthesia Care, Care After Monitored Anesthesia Care, Care After These instructions provide you with information about caring for yourself after your procedure. Your health care provider may also give you more specific instructions. Your treatment has been plannedaccording to current medical practices, but problems sometimes occur. Call your health care provider if you have any problems or questions after your procedure. What can I expect after the procedure? After your procedure, you may: Feel sleepy for several hours. Feel clumsy and have poor balance for several hours. Feel forgetful about what happened after the procedure. Have poor judgment for several hours. Feel nauseous or vomit. Have a sore throat if you had a breathing tube during the procedure. Follow these instructions at home: For at least 24 hours after the procedure: Have a responsible adult stay with you. It is important to have someone help care for you until youare awake and alert. Rest as needed. Do not: ?Participate in activities in which you could fall or become injured. ?Drive. ?Use heavy machinery. ?Drink alcohol. ?Take sleeping pills or medicines that cause drowsiness. ?Make important decisions or sign legal documents. ?Take care of children on your own. Eating and drinking Follow the diet that is recommended by your health care provider. If you vomit, drink water, juice, or soup when you can drink without vomiting. Make sure you have little or no nausea before eating solid foods. General instructions Take dstn-eti-atszydq and prescription medicines only as told by your health care provider. If you have sleep apnea, surgery and certain medicines can increase your risk for breathing problems. Follow instructions from your health care provider about wearing your sleep device: ?Anytime you are sleeping, including during daytime naps. ?While taking prescription pain medicines, sleeping medicines, or medicines that make you drowsy. If you smoke, do not smoke without supervision. Keep all follow-up visits as told by your health care provider. This is important. Contact a health care provider if: You keep feeling nauseous or you keep vomiting. You feel light-headed. You develop a rash. You have a fever. Get help right away if: You have trouble breathing. Summary For several hours after your procedure, you may feel sleepy and have poor judgment. Have a responsible adult stay with you for at least 24 hours or until you are awake and alert. This information is not intended to replace advice given to you by your health care provider. Make sure you discuss any questions you have with your health care provider. Document Released: 12/10/2016 Document Revised: 11/18/2018 Document Reviewed: 12/10/2016 [employer] Patient Education 2020 [employer]. 04/28/2022 08:19:29 Bunion Surgery, Care After Bunion Surgery, Care After This sheet gives you information about how to care for yourself after your procedure. Your health care provider may also give you more specific instructions. If you have problems or questions, contact your health care provider. What can I expect after the procedure? After the procedure, it is common to have: Pain. Swelling. A small amount of fluid coming from your incision. Follow these instructions at home: If you have a post-operative brace, boot, or shoe: Wear the post-op (post-operative) brace, boot, or shoe as told by your health care provider. Removeit only as told by your health care provider. Loosen the brace, boot, or shoe if your toes tingle, become numb, or turn cold and blue. Keep the brace, boot, or shoe clean and dry. If you have a cast: Do not stick anything inside the cast to scratch your skin. Doing that increases your risk of infection. Check the skin around the cast every day. Tell your health care provider about any concerns. You may put lotion on dry skin around the edges of the cast. Do not put lotion on the skin underneath the cast. Keep the cast clean and dry. Bathing Do not take baths, swim, or use a hot tub until your health care provider approves. Ask your healthcare provider if you may take showers. If your brace, boot, shoe, or cast is not waterproof: ?Do not let it get wet. ?Cover it with a watertight covering when you take a bath or a shower. Keep your bandage (dressing) dry until your health care provider says it can be removed. Incision care The dressing holds your toe in the correct position. Do not change the dressing until your health care provider approves. Follow instructions from your health care provider about how to take care of your incision. Make sure you: ?Wash your hands with soap and water before you change your dressing. If soap and water are not available, use hand vice president pharmacy. ?Change your dressing as told by your health care provider. ?Leave stitches (sutures), skin glue, or adhesive strips in place. These skin closures may need to stay in place for 2 weeks or longer. If adhesive strip edges start to loosen and curl up, you may trim the loose edges. Do not remove adhesive strips completely unless your health care provider tells you to do that. Check your incision area every day for signs of infection. Check for: ?More redness, swelling, or pain. ?Blood or more fluid. ?Warmth. ?Pus or a bad smell. Managing pain, stiffness, and swelling If directed, put ice on the affected area. ?If you have a removable brace, boot, or shoe, remove it as told by your health care provider. ?Put ice in a plastic bag. ?Place a towel between your skin and the bag or between your cast and the bag. ?Leave the ice on for 20 minutes, 2 3 times a day. Move your toes often to avoid stiffness and to lessen swelling. Raise (elevate) your foot above the level of your heart while you are sitting or lying down. Driving Do not drive for 24 hours if you were given a medicine to help you relax (sedative) during your procedure. Do not drive or use heavy machinery while taking prescription pain medicine. Ask your health care provider when it is safe to drive if you have a brace, boot, shoe, or cast on your foot. Activity Return to your normal activities as told by your health care provider. Ask your health care provider what activities are safe for you. If physical therapy was prescribed, do exercises as told by your health care provider. Safety Do not use the affected leg to support (bear) your body weight until your health care provider saysthat you can. Follow weight-bearing restrictions as told. Use crutches, a cane, or a walker as toldby your health care provider. General instructions Do not use any products that contain nicotine or tobacco, such as cigarettes and e-cigarettes. These can delay bone healing. If you need help quitting, ask your health care provider. Take tdue-jbd-fbdjwwv and prescription medicines only as told by your health care provider. If you are taking prescription pain medicine, take actions to prevent or treat constipation. Your health care provider may recommend that you: ?Drink enough fluid to keep your urine pale yellow. ?Eat foods that are high in fiber, such as fresh fruits and vegetables, whole grains, and beans. ?Limit foods that are high in fat and processed sugars, such as fried or sweet foods. ?Take an dnrq-cfh-wdiiged or prescription medicine for constipation. Do not wear high heels or tight-fitting shoes, even after you heal. Keep all follow-up visits as told by your health care provider. This is important. Contact a health care provider if: You have more redness, swelling, or pain around your incision. You have more fluid or blood coming from the incision. Your incision feels warm to the touch. There is pus or a bad smell coming from your incision. You have a fever or chills. Your dressing gets wet or it falls off. You have swelling in your lower leg. You have numbness or stiffness in your toes. Get help right away if: You have a rash. You have difficulty breathing. Summary Do not use the affected leg to support (bear) your body weight until your health care provider saysthat you can. Follow weight-bearing restrictions as told. Use crutches, a cane, or a walker as toldby your health care provider. If directed, put ice on the affected area. Leave the ice on for 20 minutes, 2 3 times a day. Do not drive or use heavy machinery while taking prescription pain medicine. This information is not intended to replace advice given to you by your health care provider. Make sure you discuss any questions you have with your health care provider. Document Released: 03/09/2006 Document Revised: 08/02/2018 Document Reviewed: 05/27/2018 [employer] Patient Education 2020 [employer]. Follow Up Care 03/14/2022 15:39:59 With:SIDDHARTH CALVO DPM, Surgery Address: [address] [place] [address], [place] [address] [facility] [place], [place] [id number]- When: Unknown Comments:YOUR FOLLOW UP APPOINTMENT IS 2021 AT 3:00 PM . IF YOU CANNOT MAKE THIS APPOINTMENT, PLEASE CALL TO RESCHEDULE. CALL DR CALVO WITH ANY QUESTIONS OR CONCERNS. GO TO THE EMERGENCY ROOM WITH ANY URGENT CONCERNS. [facility] 08-26-2022 Summary of episode note Discharge Instructions Thank you for allowing [facility] to assist you with your healthcare needs. The following is importantdischarge information regarding your hospital visit. Your Care Team SHIRA BULLARD MD, DR.. Your Diagnosis TAILORS BUNIONECTOMY/OSTECTOMY LEFT FOOT. What to do next Follow Up Appointments Follow Up with SIDDHARTH CALVO DPM, Surgery When Why: YOUR FOLLOW UP APPOINTMENT IS 2021 AT 3:00 PM . IF YOU CANNOT MAKE THISAPPOINTMENT, PLEASE CALL TO RESCHEDULE. CALL DR CALVO WITH ANY QUESTIONS OR CONCERNS. GO TO THE EMERGENCY ROOM WITH ANY URGENT CONCERNS. Where: [facility] [place], [place] [address] [facility] [place], [place] [id number]- The Following Activity and Diet Have Been Ordered for You Discharge Activity - Ordered -- Other, Follow the post-operative/post-procedure activity instructions provided by your physician's office., 08/26/22 8:05:00 EDT No qualifying data available. Allergies codeine (Nausea and vomiting) Medications Please ask your primary doctor or pharmacist before taking any other medication not listed, including over the counter drugs, herbal medications, vitamins and or supplements as they may interact withyour home medications. What How Much When Instructions Last Dose Unchanged amLODIPine (amLODIPine 2.5 mg oral tablet) 2 tab(s) by mouth Once a day Unchanged aspirin 81 Milligram by mouth Every day Take 81 mg aspirin twice daily with food for 4 weeks postoperatively for DVT prophylaxis Unchanged atenolol (atenolol 25 mg oral tablet) 1 tab(s) by mouth Every day Unchanged atorvastatin (atorvastatin 80 mg oral tablet) 1 tab(s) by mouth Every day Unchanged cholecalciferol (Vitamin D3) 1,000 unit(s) by mouth Every day Unchanged clopidogrel (clopidogrel 75 mg oral tablet) 1 tab(s) by mouth Every day Unchanged ferrous sulfate (FeroSul 325 mg (65 mg elemental iron) oral tablet) 2 tab(s) Once a day Unchanged ramipril (ramipril 10 mg oral capsule) 2 cap by mouth Every day Please take this list to your next doctor s visit. Bring all medications you take, including over the counter medications, herbals and other supplements with you to your doctor s visit. Patients and families are reminded to discard old lists and to update any records with all medication providers or retail pharmacies. Education Materials Hand Washing Germs such as bacteria, viruses, and parasites are found everywhere. They can be in the air and water. They can also be on surfaces like food, door handles, and your skin. Every day, your hands touchgerms. Many of these germs can make you and your family sick. Washing your hands is one of the bestways to lower your risk of getting and sharing germs. When should I wash my hands? You should wash your hands whenever you think they are dirty. You should also wash your hands: Before: ? Visiting a baby or anyone with a weakened disease-fighting system (immunesystem). ? Putting in and taking out contact lenses. After: ? Using the bathroom or helping someone else use the bathroom. ? Working or playing outside. ? Touching or taking out the garbage. ? Touching anything dirty around your home. ? Sneezing, coughing, or blowing your nose. ? Using a phone, including your mobile phone. ? Touching an animal, animal food, animal poop, or its toys or leash. ? Touching money. ? Using household ceiling cleaner or poisonous chemicals. ? Handling dirty clothes, bedding, or rags. ? Using public transportation. ? Going shopping, especially if you use a shopping cart or basket. ? Shaking hands. ? Handling livestock, such as cows or sheep. Before and after: ? Preparing food. ? Eating. ? Visiting or taking care of someone who is sick. This includes touching used tissues, toys, and clothes. ? Changing a bandage (dressing). ? Taking care of an injury or wound. ? Giving or taking medicine. ? Preparing a bottle for a baby. ? Feeding a baby or young child. ? Changing a diaper. What is the right way to wash my hands? 1. Wet your hands with clean, running water. Turn off the water or move your hands out of the running water. 2. Apply liquid soap or bar soap to your hands. 3. Rub your hands together quickly to create lather. 4. Keep rubbing your hands together for at least 20 seconds. Thoroughly scrub all parts of your hands.This includes scrubbing under your fingernails and between your fingers. 5. Rinse your hands with clean, running water. Do this until all the soap is gone. 6. Dry your hands using an air dryer or a clean paper or cloth towel, or let your hands air-dry. Do not use your clothing or a dirty towel to dry your hands. If you are in a public restroom, use your towel: To turn off the water faucet. To open the bathroom door. How can I clean my hands if I do not have soap and water? If soap and clean water are not available, use a hand-washing wipe, spray, or gel (hand vice president pharmacy).Use one that contains at least 60% alcohol. If you are handling food, gels are not recommended as areplacement for hand washing with soap and water. To use these products, follow the directions on the product, and: Apply enough product to cover your hands. Make sure you wipe, rub, or spray the product so that it reaches every part of your hands and wrists. Include the backs of your hands, between your fingers, and under your fingernails. Rub the product onto your hands until it dries. Summary Every day, your hands touch germs. Many of these germs can make you and your family sick. Washing your hands is one of the best ways to lower your risk of getting and sharing germs. If soap and clean water are not available, use a hand-washing wipe, spray, or gel. This information is not intended to replace advice given to you by your health care provider. Make sure you discuss any questions you have with your health care provider. Document Released: 08/02/2009 Document Revised: 05/29/2018 Document Reviewed: 05/29/2018 [employer] Patient Education 2020 [employer]. How to Use Cold Therapy Cold therapy, or cryotherapy, is a treatment that uses cold temperatures to treat an injury or medical condition. It includes using cold packs or ice packs to reduce pain and swelling. Only use cold therapy if your doctor says it is okay. What are the risks? Generally, cold therapy is a safe treatment. However, it is not safe for: People who are not able to say they are in pain. These include small children and people who have memory problems. People who have certain conditions, such as: ? A problem in the vessels that slows blood flow to the fingers and toes (Raynaud's syndrome). ? Feeling very cold easily (cold hypersensitivity). ? Lack of feeling in the area being iced. Cold therapy may not be safe for people who have other conditions. Do not use it without talking toyour doctor if you have: A heart condition. High blood pressure. Open or healing wounds. An infection. Pain and swelling in your joints (rheumatoid arthritis). Poor blood flow in the body. Diabetes. Certain skin conditions. How can I make a cold pack? When using a cold pack at home to reduce pain and swelling, you can use: A silica gel cold pack that has been left in the freezer. You can buy this online or in stores. A sealable plastic bag that has been filled with crushed ice. A washcloth or paper towels soaked in cold (or ice) water. A plastic bag of frozen vegetables. Throw them away when you are finished using them as a cold pack. Supplies needed: A cold pack. A towel. This can be dry or damp, based on what you like. How to use cold therapy 1. Have your cold pack ready. 2. Place a towel between the cold pack and your skin. You may also wrap the cold pack in a towel. 3. Put the cold pack on the affected area. Keep it on for no more than 20 minutes at a time. 4. Check your skin after 5 minutes to make sure that there is no damage to the area. Check for: White spots on your skin. Your skin may look blotchy or mottled. Skin that looks blue or pale. Skin that feels waxy or hard. 5. Repeat these steps as many times each day as told by your doctor. Always use a towel to avoid direct contact with your skin. Contact a doctor if: You start to have white spots on your skin. This may give your skin a blotchy or mottled look. Your skin turns blue or pale. Your skin becomes waxy or hard. Your swelling gets worse. Summary Cold therapy, or cryotherapy, is used to treat an injury or other conditions. It includes using cold packs or ice packs to reduce pain and swelling. Cold therapy is not safe for people who are not able to say they are in pain. When using cold packs or ice packs, always place a towel between the cold source and your skin. Check your skin after 5 minutes of icing it. This is to make sure that there is no skin damage. Contact your doctor if you notice changes in your skin or your swelling gets worse. This information is not intended to replace advice given to you by your health care provider. Make sure you discuss any questions you have with your health care provider. Document Released: 02/05/2009 Document Revised: 05/19/2019 Document Reviewed: 05/19/2019 [employer] Patient Education 2020 [employer] Monitored Anesthesia Care, Care After These instructions provide you with information about caring for yourself after your procedure. Your health care provider may also give you more specific instructions. Your treatment has been plannedaccording to current medical practices, but problems sometimes occur. Call your health care provider if you have any problems or questions after your procedure. What can I expect after the procedure? After your procedure, you may: Feel sleepy for several hours. Feel clumsy and have poor balance for several hours. Feel forgetful about what happened after the procedure. Have poor judgment for several hours. Feel nauseous or vomit. Have a sore throat if you had a breathing tube during the procedure. Follow these instructions at home: For at least 24 hours after the procedure: Have a responsible adult stay with you. It is important to have someone help care for you until youare awake and alert. Rest as needed. Do not: ? Participate in activities in which you could fall or become injured. ? Drive. ? Use heavy machinery. ? Drink alcohol. ? Take sleeping pills or medicines that cause drowsiness. ? Make important decisions or sign legal documents. ? Take care of children on your own. Eating and drinking Follow the diet that is recommended by your health care provider. If you vomit, drink water, juice, or soup when you can drink without vomiting. Make sure you have little or no nausea before eating solid foods. General instructions Take pstr-ksw-jivayex and prescription medicines only as told by your health care provider. If you have sleep apnea, surgery and certain medicines can increase your risk for breathing problems. Follow instructions from your health care provider about wearing your sleep device: ? Anytime you are sleeping, including during daytime naps. ? While taking prescription pain medicines, sleeping medicines, or medicines that make you drowsy. If you smoke, do not smoke without supervision. Keep all follow-up visits as told by your health care provider. This is important. Contact a health care provider if: You keep feeling nauseous or you keep vomiting. You feel light-headed. You develop a rash. You have a fever. Get help right away if: You have trouble breathing. Summary For several hours after your procedure, you may feel sleepy and have poor judgment. Have a responsible adult stay with you for at least 24 hours or until you are awake and alert. This information is not intended to replace advice given to you by your health care provider. Make sure you discuss any questions you have with your health care provider. Document Released: 12/10/2016 Document Revised: 11/18/2018 Document Reviewed: 12/10/2016 [employer] Patient Education 2020 [employer] Bunion Surgery, Care After This sheet gives you information about how to care for yourself after your procedure. Your health care provider may also give you more specific instructions. If you have problems or questions, contact your health care provider. What can I expect after the procedure? After the procedure, it is common to have: Pain. Swelling. A small amount of fluid coming from your incision. Follow these instructions at home: If you have a post-operative brace, boot, or shoe: Wear the post-op (post-operative) brace, boot, or shoe as told by your health care provider. Removeit only as told by your health care provider. Loosen the brace, boot, or shoe if your toes tingle, become numb, or turn cold and blue. Keep the brace, boot, or shoe clean and dry. If you have a cast: Do not stick anything inside the cast to scratch your skin. Doing that increases your risk of infection. Check the skin around the cast every day. Tell your health care provider about any concerns. You may put lotion on dry skin around the edges of the cast. Do not put lotion on the skin underneath the cast. Keep the cast clean and dry. Bathing Do not take baths, swim, or use a hot tub until your health care provider approves. Ask your healthcare provider if you may take showers. If your brace, boot, shoe, or cast is not waterproof: ? Do not let it get wet. ? Cover it with a watertight covering when you take a bath or a shower. Keep your bandage (dressing) dry until your health care provider says it can be removed. Incision care The dressing holds your toe in the correct position. Do not change the dressing until your health care provider approves. Follow instructions from your health care provider about how to take care of your incision. Make sure you: ? Wash your hands with soap and water before you change your dressing. If soap and water are not available, use hand vice president pharmacy. ? Change your dressing as told by your health care provider. ? Leave stitches (sutures), skin glue, or adhesive strips in place. These skin closures may need to stay in place for 2 weeks or longer. If adhesive strip edges start to loosen and curl up, you may trim the loose edges. Do not remove adhesive strips completely unless your health care provider tells you to do that. Check your incision area every day for signs of infection. Check for: ? More redness, swelling, or pain. ? Blood or more fluid. ? Warmth. ? Pus or a bad smell. Managing pain, stiffness, and swelling If directed, put ice on the affected area. ? If you have a removable brace, boot, or shoe, remove it as told by your health care provider. ? Put ice in a plastic bag. ? Place a towel between your skin and the bag or between your cast and the bag. ? Leave the ice on for 20 minutes, 2 3 times a day. Move your toes often to avoid stiffness and to lessen swelling. Raise (elevate) your foot above the level of your heart while you are sitting or lying down. Driving Do not drive for 24 hours if you were given a medicine to help you relax (sedative) during your procedure. Do not drive or use heavy machinery while taking prescription pain medicine. Ask your health care provider when it is safe to drive if you have a brace, boot, shoe, or cast on your foot. Activity Return to your normal activities as told by your health care provider. Ask your health care provider what activities are safe for you. If physical therapy was prescribed, do exercises as told by your health care provider. Safety Do not use the affected leg to support (bear) your body weight until your health care provider saysthat you can. Follow weight-bearing restrictions as told. Use crutches, a cane, or a walker as toldby your health care provider. General instructions Do not use any products that contain nicotine or tobacco, such as cigarettes and e-cigarettes. These can delay bone healing. If you need help quitting, ask your health care provider. Take qviv-ycl-tcykxvh and prescription medicines only as told by your health care provider. If you are taking prescription pain medicine, take actions to prevent or treat constipation. Your health care provider may recommend that you: ? Drink enough fluid to keep your urine pale yellow. ? Eat foods that are high in fiber, such as fresh fruits and vegetables, whole grains, and beans. ? Limit foods that are high in fat and processed sugars, such as fried or sweet foods. ? Take an tcmo-dzx-aroekza or prescription medicine for constipation. Do not wear high heels or tight-fitting shoes, even after you heal. Keep all follow-up visits as told by your health care provider. This is important. Contact a health care provider if: You have more redness, swelling, or pain around your incision. You have more fluid or blood coming from the incision. Your incision feels warm to the touch. There is pus or a bad smell coming from your incision. You have a fever or chills. Your dressing gets wet or it falls off. You have swelling in your lower leg. You have numbness or stiffness in your toes. Get help right away if: You have a rash. You have difficulty breathing. Summary Do not use the affected leg to support (bear) your body weight until your health care provider saysthat you can. Follow weight-bearing restrictions as told. Use crutches, a cane, or a walker as toldby your health care provider. If directed, put ice on the affected area. Leave the ice on for 20 minutes, 2 3 times a day. Do not drive or use heavy machinery while taking prescription pain medicine. This information is not intended to replace advice given to you by your health care provider. Make sure you discuss any questions you have with your health care provider. Document Released: 03/09/2006 Document Revised: 08/02/2018 Document Reviewed: 05/27/2018 [employer] Patient Education 2020 [employer]. Additional Information VACCINATE! IT SAVES LIVES! Members of the community who have not yet received the COVID-19 vaccine and would like to receive it can visit one of [facility] vaccine clinics. There are many vaccine clinic locations within the [facility]. For locations and available times, please visit https://[email or web address].[place].gov/. It is important to note that some COVID mobile vaccine clinics are held outdoors and may be canceled in rainy or stormy conditions. To learn more about pediatric vaccinations (ages 5-11), we invite you to visit the [facility] webpage. [email or web address]/[email or web address] [email or web address].htmlTo learn more about the [email or web address] vaccine, we invite you to visit the [facility] website for a list of frequently asked questions. [email or web address] [employer] Patient Portal Access Instructions: Stay connected with your healthcare team and access your personal medical information anytime with the [employer] Patient Portal.If you would like a full copy of your medical records, please contact the [facility] Medical Records Department, Sunday through Sunday between 8a.m. and 4:30p.m. Please follow the directions below to access the portal: 1.Access the email account you provided upon registration to the hospital.2.Look for an invitation email from [facility].3.Open the email and access the invitation link: Accept Invitation to [facility] ([facility])4.Fill in the required arias to create your account. Sign into [email or web address] with your username and password that you created in the above steps to stay up to date. You can then view a summary of results, a summary of your visits, and the ability to download your summaries to your computer or send the information securely to a physician. Remember that your healthcare information is confidential, so carefully consider who you will allow to register on the [place] [facility] Patient Portal for access to your information. You can also access the [facility] ([facility]) Patient Portal on the [employer] joe. Simply click on Health Records under [place] and then click on the [facility] logo. HOW TO SAFELY DISPOSE OF PRESCRIPTION MEDICATIONS Please use one of the following methods to safely dispose of your unused medications. 1.Use a drug disposal kit: the drug disposal pouch allows you to safely discard your old and unuseddrugs. Ask your nurse to give you one when you are discharged.2.Visit a local take-back location: Many local pharmacies and police departments have programs that collect old and unwanted prescriptiondrugs. Call your local pharmacy or go to http://AT Internet.Bfly/5I9El6z to find one close to you.3.Make use of household items: Use cat litter or old coffee grounds to dispose medications if other options arenot available. Mix your drugs with these household products, seal them in an airtight container andthrow it into the garbage. Call [facility]: [phone] to be sure your drugs can be disposed of in this way. Some medicines may require a different approach.4.Never flush your medications down the toilet. IF YOU HAVE BEEN PRESCRIBED AN OPIOID FOR PAIN If you have been prescribed an opioid (such as hydrocodone, oxycodone or morphine), it is critical to understand the possible side effects and risks of opioid pain medications. Even when taken as directed, opioids can have several side effects including: Tolerance, meaning you might need to take more of a medication for the same pain relief. Nausea, vomiting and/or constipation. Sleepiness, dizziness, dry mouth, confusion, depression or itching. Physical dependence, meaning you have withdrawal symptoms when a medication is stopped, can develop within a few days. KNOW YOUR RESPONSIBILITIES It is important to know exactly how much and how often to take the opioid pain medications you are prescribed. Never take opioids in higher amounts or more often than prescribed. Do not combine opioids with alcohol or other drugs that cause drowsiness, such as benzodiazepines, also known as benzos, including diazepam and alprazolam, muscle relaxants or sleep aids. Never sell or share prescription opioids. This is illegal. Store opioids in a secure place and out of reach of others (including children, family, friends and visitors). The last page of this document has been signed and retained as a CHART COPY. Signatures Patient Education Materials Hand Washing, [id number] How to Use Cold Therapy, Vzwm-am-Libp Monitored Anesthesia Care, Care After Bunion Surgery, Care After Medication Leaflets My discharge plan and instructions have been reviewed and explained to me and I,NAHEED LYNCH Thao understand my current condition and have read and understand these discharge instructions. I have received a written copy of the plan/instructions. If I have questions, I am aware that I should contact my doctor. 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 Mental status: at preoperative baseline. Respiratory function: lungs are clear to auscultation. Respiratory support: none. CV function: Normal rate. Cardiovascular support: none. Pain. Nausea status: denies nausea. Postoperative hydration status: within normal limits. Digitally Signed by JOVANY METCALF on 04/28/2022 08:06 AM [facility]08-26-2022 Note [facility] ADMISSION HISTORY AND PHYSICIAL CHIEF COMPLAINT: HISTORY OF PRESENT ILLNESS: REVIEW OF SYSTEMS: ACTIVE PROBLEMS: (6) CAD (coronary artery disease) (14280565) Hard of hearing (23142788) Heart murmur (790296365) Hypertension (1642186589) Osteoarthritis (7965014578) Tobacco use ([id number]) MEDICATIONS: Active Inpt Meds: None Active PRN Meds: HYDROmorphone (Dilaudid ( PACU )) Start: 04/28/22 7:12:00 EDT, Dose = 0.25 mg, IV Push, q5min, PRN,Pain, scale 4-6, 8 dose(s), Stop: Limited # of times, 04/28/22 7:12:00 EDT fentaNYL (fentaNYL ( PACU )) Start: 04/28/22 7:12:00 EDT, Dose = 50 mcg, = 1 mL, IV Push, q5min, PRN, Pain, breakthrough, 4 dose(s), Stop: Limited # of times, 04/28/22 7:12:00 EDT meperidine (Demerol (PACU)) Start: 04/28/22 7:12:00 EDT, Dose = 25 mg, = 1 mL, IV Bolus, q3h, PRN, Pain, breakthrough, 04/28/22 7:12:00 EDT ondansetron (Zofran ( PACU )) Start: 04/28/22 7:12:00 EDT, Dose = 4 mg, = 2 mL, IV Push, AsDirected, PRN, Nausea/Vomiting, 1 dose(s), Stop: Limited # of times, 04/28/22 7:12:00 EDT One Time Meds: None Active IV Meds: Lactated Ringers Infusion 1000 mL (LR 1000 mL) Start: 04/28/22 6:02:00 EDT, Rate: 125 mL/hr, 04/28/22 6:02:00 EDT Lactated Ringers Infusion 1000 mL (LR 1000 mL) Start: 04/28/22 7:12:00 EDT, Rate: 20 mL/hr, 04/28/22 7:12:00 EDT ALLERGIES: (1) codeine FAMILY HISTORY: SOCIAL HISTORY: PHYSICAL EXAM: VITALS: [id number](kg) 04/28 06:[id number]/26 63.6 24 Hr Tmax: 36 at 04/28 06:15 36 Hr Tmax: 36 at 04/28 06:15 Vital Signs are the last 5 in the past 48 hours. Weights display the last 5 within 7 days. Initial Wt: 04/28 63.6 kg 140 lb Current Wt: 04/28 63.6 kg 140 lb GENERAL: HEENT: CARDIOVASCULAR: RESPIRATORY: ABDOMEN: EXREMETIES: NEUROLOGICAL: PSYCHIATRIC: LABS: No 36hr Lab Data DIAGNOSTICS: IMPRESSION: PLAN: History and Physical Update I have examined the patient; reviewed the H&P and there are no changes to the H&P unless noted below. Digitally Signed by SIDDHARTH CALVO DPM on 04/28/2022 07:23 AM [facility]08-26-2022 Anesthesiology Consult note Patient: NAHEED LYNCH Age: 61 years Sex: Female : 1960 Associated Diagnoses: None Author: JOVANY METCALF Preoperative Information Time of last food or liquid consumption: 04/28/2022 00:00:00 Anesthesia history Patient's history: negative. Family's history: negative. Health Status Allergies: Allergic Reactions (Selected) Severity Not Documented Codeine- Nausea and vomiting., Allergies (1) ActiveReaction codeineNausea and vomiting Current medications: (Selected) Inpatient Medications Ordered LR 1000 mL: 125 mL/hr, Intravenous Documented Medications Documented FeroSul 325 mg (65 mg elemental iron) oral tablet: 650 mg, 2 tab(s), qDay, 0 Refill(s) Vitamin D3: 1,000 unit(s), 1 tab(s), Oral, Daily, 0 Refill(s) amLODIPine 2.5 mg oral tablet: 5 mg, 2 tab(s), Oral, qDay, 30 tab(s), 0 Refill(s) aspirin: 81 mg, 1 tab(s), Oral, Daily, Take 81 mg aspirin twice daily with food for 4 weeks postoperatively for DVT prophylaxis, 0 Refill(s) atenolol 25 mg oral tablet: 25 mg, 1 tab(s), Oral, Daily, 0 Refill(s) atorvastatin 80 mg oral tablet: 80 mg, 1 tab(s), Oral, Daily, 0 Refill(s) clopidogrel 75 mg oral tablet: 75 mg, 1 tab(s), Oral, Daily, 0 Refill(s) ramipril 10 mg oral capsule: 20 mg, 2 cap(s), Oral, Daily, 0 Refill(s), Medications (1) Active Scheduled: (0) Continuous: (1) Lactated Ringers Infusion 1000 mL 1,000 mL, Intravenous, 125 mL/hr PRN: (0) Problem list: Active Problems (6) CAD (coronary artery disease) Hard of hearing Heart murmur Hypertension Osteoarthritis Tobacco use Histories Past Medical History: No active or resolved past medical history items have been selected or recorded., CAD, Stent/cardiac 2008, smoker, HTN, MVP, Family History: Hypertension Mother Father Cardiovascular disease Mother Father Brother Procedure history: Left hip ([id number]) on 05/24/2021 at 61 Years. ORIF - Open reduction and internal fixation of fracture ([id number]) in 2019 at 59 Years. Comments: 05/13/2021 12:00 JOANA Guaman LEFT HIP Hysterectomy ([id number]). Shoulder ([id number]). Comments: 05/13/2021 12:00 JOANA Guaman SURGERY, RIGHT Neck ([id number]). Comments: 05/24/2021 9:27 GANESHT - Lalita Pascual RN neck surgery on her spine. Stented coronary artery ([id number]). Cardiac catheterization ([id number]). Comments: 04/18/2022 10:23 GANESHT Karen De La oRsa RN x2 Cervical spinal fusion ([id number]). Comments: 04/18/2022 10:22 Karen Mackenzie RN [id number] Social History Social & Psychosocial Habits Alcohol 05/13/2021 Use: Never Substance Abuse 05/13/2021 Use: Never Tobacco 04/18/2022 Tobacco Use: 10 or more cigarettes (1/ Type: Cigarettes Number of years: 40 Home/Environment 05/24/2021 Domestic Concerns Denies Living situation: Home with assistance Lives In Single level home Current Home Treatments None Special Services and Community Resources None Financial concerns: No Spouse Name JERRY Marital Status of Patient if Patient Independent Adult: Nutrition/Health 05/24/2021 Type of diet: Regular Appetite Good Eating Difficulties None Enteral Feedings No TPN Feedings No Skin Breakdown/Decubitus Ulcers No Caffeine intake amount: coffee/tea . Physical Examination Vital Signs 04/28/2022 6:15 EDT Temperature Temporal Artery 36 DegC Peripheral Pulse Rate 47 bpm Respiratory Rate 16 br/min Systolic Blood Pressure NBP 161 mmHg >HHI Diastolic Blood Pressure NBP 74 mmHg Vital Signs(last 24 hrs) Last Charted Resp Rate 16 br/min (APR 28 06:15) SBPC 161mmHg (APR 28 06:15) DBP74 mmHg (APR 28 06:15) Measurements from flowsheet : Measurements 04/28/2022 6:15 EDT Height 170.2 cm Height in inches 67 inch(es) Admission Weight 63.6 kg Weight Lbs 139.9 lb Weight Method Stated Dilley Body Weight 61.62 kg Admission Body Mass Index 21.96 m2 Pain assessment: Pain Assessment 04/28/2022 6:15 EDT Primary Pain Intensity 0 Pain Scale Type 0-10 Pain scale . General: Alert and oriented. Airway: Normal temporomandibular joint mobility. Mallampati classification: II (soft palate, fauces, uvula visible). Head: Normocephalic. Dentition Evaluation: Intact. Neck: Supple. Respiratory: Lungs are clear to auscultation. Cardiovascular: Normal rate. Heart Sounds: Normal. Gastrointestinal: Soft. Musculoskeletal Normal range of motion. Integumentary: Intact. Neurologic: Alert. Review / Management Results review: No qualifying data available , Lab results 04/28/2022 6:32 EDT SN - Preop - CTm Pt in SDS Room 04/28/2022 6:02 SN - Preop - CTm Pt Ready for OR/Proced 04/28/2022 6:30 04/28/2022 6:31 EDT Lactated Ringers Injection Begin Bag 1,000 mL mL 04/28/2022 6:15 EDT Height 170.2 cm Height in inches 67 inch(es) Admission Weight 63.6 kg Weight Lbs 139.9 lb Weight Method Stated Dil[place] Body Weight 61.62 kg Admission Body Mass Index 21.96 m2 Temperature Temporal Artery 36 DegC Peripheral Pulse Rate 47 bpm Respiratory Rate 16 br/min Systolic Blood Pressure NBP 161 mmHg >HHI Diastolic Blood Pressure NBP 74 mmHg Primary Pain Intensity 0 Pain Scale Type 0-10 Pain scale Monitor Alarms On and Limits Checked Nail Bed Color [place] Capillary Refill < 2 seconds Heart Sounds ICU S1S2 Heart Rhythm Regular All Lobes Breath Sounds Clear Oxygen Therapy Room air Oxygen Saturation 97 % Abdomen Description Non-distended, Symmetric, Soft Abdomen Palpation Non-Tender, Soft Bowel Sounds All Quadrants Present Urinary Elimination Voiding, no difficulties Skin Temperature Warm Skin Description [place] Skin Integrity Intact IV Present Present Antecubital Left 04/28/2022 20 gauge Peripheral IV Activity: Insert new site Peripheral IV Dressing Condition: Clean, Dry, Intact Peripheral IV Dressing Activity: Transparent dressing Peripheral IV Line Status/Patency: Flushes easily Peripheral IV Line Care: Secured with tape Peripheral IV Site Condition: No complications Peripheral IV Equipment: Extension set, PRN Adaptor Peripheral IV Number of Attempts: 1 Extremity Movement Equal Characteristics of Speech Clear Level of Consciousness Alert HIMA Yes Strength All Extremities Strong Affect/Behavior Appropriate, Calm, Cooperative Orientation Oriented x 4 Allergies Yes Mortgage Manager On Yes Consent Form Signed Yes Patient Dressed In Hospital gown, No undergarments Pre-op Preparation Jewelry removed CHG Preoperative Wash/Wipe Night before procedure, Day of procedure History & Physical Update On Chart Yes History & Physical On Chart Yes Obstructive Sleep Apnea Assess Completed Yes Orientation Assessment Oriented x 4 Activity Status ADL Awake Assistive Device None SCD On/Re-applied right knee high NPO Status Maintained Allergy Band on and Verified Yes Blood Band on and Verified Yes Patient ID Band on and Verified Yes Implants Verified Yes Pacemaker/AICD Verified Yes Anesthesia Consent Signed Yes Blood Consent Signed Yes Last Fluid Intake 04/27/2022 22:00 Last Food Intake 04/27/2022 22:00 Last Void 04/28/2022 6:21 04/28/2022 6:14 EDT Infectious Disease Symptoms Patient states no symptoms Safety Brochure Information Reviewed Unable to complete [facility] Video Viewed No Teaching Evaluation No further teaching needed Admission Note-Nursing Same Day Patient History (Modified) . Assessment and Plan [place] [employer] Anesthesiologists (ASA) physical status classification: Class III. Anesthetic Preoperative Plan Premedication: intravenous. Anesthetic technique: MAC. Induction: intravenously. Postoperative pain management: Per surgeon. Risks discussed: nausea, vomiting, headache, sore throat, dental injury, hypotension, allergic reaction, serious complications. Informed consent: signed by patient. Digitally Signed by JOVANY METCALF on 04/28/2022 07:12 AM [facility]06-06-2022 Miscellaneous Notes* Letter - Mammography Coordinator - 02/06/2022 9:53 AM EDT February 06, 2022 PID: [id number] Naheed Meadows Syed [address] [place] [address] Dear Tamra Lynch, We are pleased to inform you that the results of your recent breast imaging exam on 02/06/2022 are normal. Early detection of cancer is very important. We also understand recommendations regarding breast cancer screening are controversial. Please discuss with your primary care provider which strategy is best for you and whether a mammogram is right for you. Your imaging studies and report will be kept on file at [facility] as part of your permanent medical record and are available for your continuing care. Thank you for allowing us to help in meeting your health care needs. Sincerely, Dr. Zurita Interpreting Radiologist [facility] (Normal over 40) [facility] History of Present illness Narrative* RT Cassandra(R) - 02/06/2022 9:30 AM EDT Radiology Service Progress Note PATIENT NAME: Naheed Lynch DATE OF SERVICE: February 06, 2022 TIME: 9:31 AM PATIENT IDENTITY VERIFICATION COMPLETED USING TWO (2) IDENTIFIERS: Name and Date of confirmedby patient verbally. FALL SCREENING: Has the patient had 2 falls in the last year or 1 fall with injury or currently using an Ambulatory Assistive Device (Walker, Cane, Wheelchair, Crutches, etc.)? No PATIENT GENDER DATA: Female. status: : No status: NO. PATIENT RELEVANT IMPLANT DATA REVIEWED: Not Applicable RADIOLOGY DEPARTMENT: Mammography PERIPHERAL IV DATA: Not applicable SIGNED BY: RT Cassandra(R) February 06, 2022 9:31 AM [facility] Evaluation note* Diagnosis Onset Date Resolution Status [id number] chronic Essential (primary) hypertension chronic History of coronary artery stent placement March, chronic Pure hypercholesterolemia ch ronic Valvular heart disease [facility] Work Phone: 1(330) 965-733907-01-2008 Evaluation note* Diagnosis Onset Date Resolution Status Abnormal ECG acute [id number] chronic Essential (primary) hypertension chronic History of coronary artery stent placement March, chronic Nicotine dependence, cigarettes, uncomplicated chronic Pure hypercholesterolemia ch ronic Valvular heart disease [facility] Pre-operative cardiovascular examination noneactive [facility] Work Phone: 1(824) 101-286207-01-2008 Evaluation note* Diagnosis Onset Date Resolution Status Essential (primary) hypertension chronic History of coronary artery stent placement March, chronic Nicotine dependence, cigarettes, uncomplicated chronic Pure hypercholesterolemia ch ronic Valvular heart disease [facility] Work Phone: 1(286) 792-782312-12-2005 History of Past illness Narrative* Problem Noted Date Resolved Date LATERAL EPICONDYLITIS right 08/14/200505/04 documented as of this encounter (statuses as of 02/07/2022) [facility]12-12-2005 History of Past illness Narrative* Problem Noted Date Resolved Date LATERAL EPICONDYLITIS right 08/14/200505/04 documented as of this encounter (statuses as of 02/08/2022) [address]12-2005 History of Past illness Narrative* Problem Noted Date Resolved Date LATERAL EPICONDYLITIS right 08/14/200505/04 documented as of this encounter (statuses as of 12/08/2022) [address]12-2005 History of Past illness Narrative* Problem Noted Date Resolved Date LATERAL EPICONDYLITIS right 08/14/200505/04 documented as of this encounter (statuses as of 12/11/2022) [address]12-2005 History of Past illness Narrative* Problem Noted Date Resolved Date LATERAL EPICONDYLITIS right 08/14/200505/04 documented as of this encounter (statuses as of 01/08/2023) [address]12-2005 History of Past illness Narrative* Problem Noted Date Resolved Date LATERAL EPICONDYLITIS right 08/14/200505/04 documented as of this encounter (statuses as of 01/09/2023) [address]12-2005 History of Past illness Narrative* Problem Noted Date Resolved Date LATERAL EPICONDYLITIS right 08/14/200505/04 documented as of this encounter (statuses as of 01/11/2023) [address]12-2005 History of Past illness Narrative* Problem Noted Date Diagnosed Date Resolved Date LATERAL EPICONDYLITIS right 08/14/2005 05/16/2006 documented as of this encounter (statuses as of 03/26/2023) [address]12-2005 History of Past illness Narrative* Problem Noted Date Diagnosed Date Resolved Date LATERAL EPICONDYLITIS right 08/14/2005 05/16/2006 documented as of this encounter (statuses as of 03/28/2023) [address]12-2005 History of Past illness Narrative* Problem Noted Date Diagnosed Date Resolved Date LATERAL EPICONDYLITIS right 08/14/2005 05/16/2006 documented as of this encounter (statuses as of 06/15/2023) [address]12-2005 History of Past illness Narrative* Problem Noted Date Diagnosed Date Resolved Date LATERAL EPICONDYLITIS right 08/14/2005 05/16/2006 documented as of this encounter (statuses as of 07/08/2023) [address]12-2005 History of Past illness Narrative* Problem Noted Date Diagnosed Date Resolved Date LATERAL EPICONDYLITIS right 08/14/2005 05/16/2006 documented as of this encounter (statuses as of 07/13/2023) [facility] History of Past illness Narrative* Problem Noted Date Diagnosed Date Resolved Date LATERAL EPICONDYLITIS right 08/14/2005 05/16/2006 documented as of this encounter (statuses as of 08/07/2023) [facility]2005 History of Past illness Narrative* Problem Noted Date Diagnosed Date Resolved Date LATERAL EPICONDYLITIS right 08/14/2005 05/16/2006 documented as of this encounter (statuses as of 08/12/2023) [facility] History of Past illness Narrative* Problem Noted Date Diagnosed Date Resolved Date LATERAL EPICONDYLITIS right 08/14/2005 05/16/2006 documented as of this encounter (statuses as of 12/10/2023) [facility]* ALVIN MACK APRN-[employer] REPRESENTATIVE: PERFORM, SIGN, VERIFY Event Display: Anesthesiology Consultation Authored Date: Patient: NAHEED LYNCH Age: 62 years Sex: Female : 1960 Associated Diagnoses: None Author: ALVIN MACK APRN-[employer] REPRESENTATIVE Assessment Postanesthesia assessment Vitals: Vital signs from flowsheet : Vital Signs 09/01/2022 7:30 EST Heart Rate Monitored 46 bpm bpm Respiratory Rate - Anes 24 br/min br/min Systolic Blood Pressure Non-Invasive 98 mmHg mmHg Diastolic Blood Pressure Non-Invasive 57 mmHg mmHg 09/01/2022 7:25 EST Heart Rate Monitored 48 bpm bpm Respiratory Rate - Anes 15 br/min br/min Systolic Blood Pressure Non-Invasive 110 mmHg mmHg Diastolic Blood Pressure Non-Invasive 61 mmHg mmHg 09/01/2022 7:20 EST Heart Rate Monitored 50 bpm bpm Respiratory Rate - Anes 13 br/min br/min Systolic Blood Pressure Non-Invasive 122 mmHg mmHg Diastolic Blood Pressure Non-Invasive 66 mmHg mmHg 09/01/2022 7:15 EST Heart Rate Monitored 50 bpm bpm Respiratory Rate - Anes 16 br/min br/min Systolic Blood Pressure Non-Invasive 144 mmHg mmHg Diastolic Blood Pressure Non-Invasive 68 mmHg mmHg 09/01/2022 7:10 EST Heart Rate Monitored 50 bpm bpm Respiratory Rate - Anes 17 br/min br/min Systolic Blood Pressure Non-Invasive 136 mmHg mmHg Diastolic Blood Pressure Non-Invasive 62 mmHg mmHg 09/01/2022 7:05 EST Heart Rate Monitored 51 bpm bpm Respiratory Rate - Anes 13 br/min br/min Systolic Blood Pressure Non-Invasive 151 mmHg mmHg Diastolic Blood Pressure Non-Invasive 73 mmHg mmHg 09/01/2022 7:00 EST Heart Rate Monitored 52 bpm bpm Respiratory Rate - Anes 0 br/min br/min Systolic Blood Pressure Non-Invasive 147 mmHg mmHg Diastolic Blood Pressure Non-Invasive 100 mmHg mmHg 09/01/2022 6:38 EST Temperature Temporal Artery 36.5 DegC Peripheral Pulse Rate 52 bpm LOW Respiratory Rate 10 br/min <LLOW Systolic Blood Pressure Non-Invasive 158 mmHg HI Diastolic Blood Pressure Non-Invasive 80 mmHg , Measurements from flowsheet . Mental status: alert & oriented x 4. Respiratory function: respirations are non-labored. Respiratory support: none. CV function: Normal rate. Cardiovascular support: none. Pain. Nausea status: see nursing documentation of medications. Postoperative hydration status: within normal limits. Digitally Signed by ALVIN MACK on 09/01/2022 07:35 AM * ALVIN MACK: PERFORM, SIGN, VERIFY Event Display: Anesthesiology Consultation Authored Date: Patient: NAHEED LYNCH Age: 62 years Sex: Female : 1960 Associated Diagnoses: None Author: ALVIN MACK Preoperative Information Time of last food or liquid consumption: 09/01/2022 00:00:00 Anesthesia history Patient's history: negative. Family's history: negative. Health Status Allergies: Nonallergic Reactions (Selected) Severity Not Documented Codeine- Nausea and vomiting., Allergies (1) ActiveReaction codeineNausea and vomiting Current medications: (Selected) Inpatient Medications Ordered LR 1,000 mL: 125 mL/hr, Intravenous Documented Medications Documented amLODIPine 2.5 mg oral tablet: 5 mg, 2 tab(s), Oral, qDay, 30 tab(s), 0 Refill(s) aspirin: 81 mg, 1 tab(s), Oral, Daily, Take 81 mg aspirin twice daily with food for 4 weeks postoperatively for DVT prophylaxis, 0 Refill(s) atenolol 25 mg oral tablet: 25 mg, 1 tab(s), Oral, Daily, 0 Refill(s) atorvastatin 80 mg oral tablet: 80 mg, 1 tab(s), Oral, Daily, 0 Refill(s) clopidogrel 75 mg oral tablet: 75 mg, 1 tab(s), Oral, Daily, 0 Refill(s) ramipril 10 mg oral capsule: 20 mg, 2 cap(s), Oral, Daily, 0 Refill(s), Medications (1) Active Scheduled: (0) Continuous: (1) Lactated Ringers 1,000 mL 1,000 mL, Intravenous, 125 mL/hr PRN: (0) Problem list: Active Problems (6) CAD (coronary artery disease) Hard of hearing Heart murmur Hypertension Osteoarthritis Tobacco use Histories Past Medical History: No active or resolved past medical history items have been selected or recorded. Family History: Hypertension Mother Father Cardiovascular disease Mother Father Brother Procedure history: Left hip ([id number]) on 05/24/2021 at 61 Years. ORIF - Open reduction and internal fixation of fracture ([id number]) in 2019 at 59 Years. Comments: 05/13/2021 12:00 JOANA Guaman LEFT HIP Hysterectomy ([id number]). Shoulder ([id number]). Comments: 05/13/2021 12:00 JOANA Guaman SURGERY, RIGHT Neck ([id number]). Comments: 05/24/2021 9:27 Lalita Sellers RN neck surgery on her spine. Stented coronary artery ([id number]). Cardiac catheterization ([id number]). Comments: 04/18/2022 10:23 Karen Mackenzie RN x2 Cervical spinal fusion ([id number]). Comments: 04/18/2022 10:22 Karen Mackenzie RN [id number] Social History Social & Psychosocial Habits Alcohol 05/13/2021 Use: Never Substance Abuse 05/13/2021 Use: Never Tobacco 04/18/2022 Tobacco Use: 10 or more cigarettes (1/ Type: Cigarettes Number of years: 40 Home/Environment 05/24/2021 Domestic Concerns Denies Living situation: Home with assistance Lives In Single level home Current Home Treatments None Special Services and Community Resources None Financial concerns: No Spouse Name JERRY Marital Status of Patient if Patient Independent Adult: Nutrition/Health 05/24/2021 Type of diet: Regular Appetite Good Eating Difficulties None Enteral Feedings No TPN Feedings No Skin Breakdown/Decubitus Ulcers No Caffeine intake amount: coffee/tea . Physical Examination Vital Signs 09/01/2022 6:38 EST Temperature Temporal Artery 36.5 DegC Peripheral Pulse Rate 52 bpm LOW Respiratory Rate 10 br/min <LLOW Systolic Blood Pressure Non-Invasive 158 mmHg HI Diastolic Blood Pressure Non-Invasive 80 mmHg Vital Signs(last 24 hrs) Last Charted Resp Rate C 10br/min (SEP 01:38) SBPH 158mmHg (SEP 01:38) DBP80 mmHg (SEP 01:) Measurements from flowsheet : Measurements 09/01/2022 6:38 EST Height 171 cm Height in inches 67.3 inch(es) Admission Weight 63.6 kg Weight Lbs 139.9 lb Weight Method Stated [place] Body Weight 62.34 kg Admission Body Mass Index 21.75 m2 Pain assessment: Pain Assessment 09/01/2022 6:38 EST Primary Pain Intensity 4 Pain Scale Type 0-10 Pain scale . General: Alert and oriented. Airway: Normal temporomandibular joint mobility, Normal mouth, Normal neck range of motion. Mallampati classification: III (soft palate, base of uvula visible). Dentition Evaluation: Dentures, partial plate, Denies loose/chipped teeth. Respiratory: Respirations are non-labored. Cardiovascular: Normal rate. Neurologic: Alert, Oriented. Review / Management Results review: No qualifying data available , Lab results 09/01/2022 7:03 EST cefOXitin 1 gram(s) gram(s) Sodium Chloride 0.9% 100 mL mL 09/01/2022 6:57 EST SN - Preop - CTm Pt in SDS Room 09/01/2022 6:22 SN - Preop - CTm Pt Ready for OR/Proced 09/01/2022 6:43 09/01/2022 6:57 EST SN - CTm - Anesthesia Start Time Anesthesia Start 09/01/2022 6:52 EST [place] History and Physical 09/01/2022 6:45 EST SN - SP - Prep Agents Chloraprep SN - SP - HR - Method N/A 09/01/2022 6:44 EST SN - Proc - Anesthesia Type General SN - Proc - Actual Procedure OSTEOTOMY 5TH METATARSAL LEFT FOOT 09/01/2022 6:44 EST SN - PP - Body Position Supine Standard Intra-op 09/01/2022 6:43 EST SN - PTCare - Anti-thromboembolism Tatiana Sequential Compression Device (SCD) 09/01/2022 6:43 EST SN - Assess - LOC Alert, Awake SN - Assess - Orientation Oriented X 3 SN - Assess - Post-op Skin Integrity Intact/Dry 09/01/2022 6:43 EST SN - MD - Medication MARCAINE BUPIVACAINE 0.5% 30ML SN - MD - Route of Administration Local SN - MD - By (Single) SN - MD - By (Single) 09/01/2022 6:42 EST SN - GCD - Post-operative Diagnosis TAILORS BUNION, LEFT FOOT SN - GCD - Case Level Level 4 09/01/2022 6:42 EST SN - Cul - Culture Type No Specimen per Surgeon 09/01/2022 6:41 EST SN - CAt - Case Attendee SN - CAt - Case Attendee SN - CAt - Case Attendee SN - CAt - Case Attendee SN - CAt - Case Attendee SN - CAt - Case Attendee SN - CAt - Case Attendee SN - CAt - Case Attendee SN - CAt - Case Attendee SN - CAt - Case Attendee SN - CAt - Role Performed Primary Surgeon SN - CAt - Role Performed Cutting And Printing Machine Operator 1 SN - CAt - Role Performed Scrub 1 SN - CAt - Role Performed Java Lead 1 SN - CAt - Role Performed PLAY[employer] REPRESENTATIVE 09/01/2022 6:38 EST Height 171 cm Height in inches 67.3 inch(es) Admission Weight 63.6 kg Weight Lbs 139.9 lb Weight Method Stated [place] Body Weight 62.34 kg Admission Body Mass Index 21.75 m2 Temperature Temporal Artery 36.5 DegC Peripheral Pulse Rate 52 bpm LOW Respiratory Rate 10 br/min <LLOW Systolic Blood Pressure Non-Invasive 158 mmHg HI Diastolic Blood Pressure Non-Invasive 80 mmHg Primary Pain Intensity 4 Pain Scale Type 0-10 Pain scale Monitor Alarms On and Limits Checked Heart Sounds ICU S1S2 Heart Rhythm Regular Oxygen Therapy Room air Oxygen Saturation 96 % Abdomen Description Non-distended, Symmetric, Soft Abdomen Palpation Non-Tender, Soft Bowel Sounds All Quadrants Present Urinary Elimination Voiding, no difficulties Skin Temperature Warm Skin Description [place] Skin Integrity Intact IV Present Present Antecubital Right 09/01/2022 20 gauge Peripheral IV Activity: Insert new site Peripheral IV Dressing Condition: Clean, Dry, Intact Peripheral IV Dressing Activity: Transparent dressing Peripheral IV Line Status/Patency: Flushes easily Peripheral IV Line Care: Secured with tape Peripheral IV Site Condition: No complications Peripheral IV Equipment: Extension set, PRN Adaptor Peripheral IV Number of Attempts: 1 Extremity Movement Equal Characteristics of Speech Clear Level of Consciousness Alert HIMA Yes Strength All Extremities Strong Affect/Behavior Appropriate, Calm, Cooperative Orientation Oriented x 4 Allergies Yes Mortgage Manager On Yes Consent Form Signed Yes Patient Dressed In Hospital gown, No undergarments CHG Preoperative Wash/Wipe Night before procedure, Day of procedure History & Physical Update On Chart Yes History & Physical On Chart Yes Orientation Assessment Oriented x 4 Activity Status ADL Awake Assistive Device None SCD On/Re-applied right knee high NPO Status Maintained Standard Safety ID band on, Call device within reach, Bed in low position, Wheels locked, Upper/Half-Length side-rails up, Safety level maintained, Non- Slip footwear Demonstrates Correct Call Light Use Yes Lactated Ringers Injection Begin Bag 1,000 mL mL Patient ID Band on and Verified Yes Implants Verified Yes Pacemaker/AICD Verified Yes Anesthesia Consent Signed Yes Blood Consent Signed Yes Last Fluid Intake 08/31/2022 20:00 Last Food Intake 08/31/2022 20:00 Last Void 09/01/2022 6:00 09/01/2022 6:28 EST Privacy Restrictions Requested None Sensory Deficits Hearing deficit, left ear, Hearing deficit, right ear Safety Brochure Information Reviewed Unable to complete [facility] Video Viewed No Teaching Evaluation No further teaching needed Admission Note-Nursing Same Day Patient History (Modified) . Assessment and Plan [place] [employer]esthesi[employer] (ASA) physical status classification: Class III. Anesthetic Preoperative Plan Anesthetic technique: MAC. Informed consent: signed by patient. Digitally Signed by ALVIN MACK on 09/01/2022 07:09 AM [facility] Evaluation + Plan note Future Appointments [facility] Evaluation note* Diagnosis Encounter for screening mammogram for [facility] Diagnosis Onset Date Resolution Status Acute GI bleeding acute [facility] Work Phone: Evaluation note* Diagnosis History of recent hospitalization- Primary Personal history of unspecified disease Gastrointestinal hemorrhage associated with duodenal ulcer Vitamin D deficiency Unspecified vitamin D deficiency Hypokalemia Hypopotassemia Anemia, unspecified type Anxiety and depression Dysthymic disorder Essential hypertension Unspecified essential hypertension Mixed hyperlipidemia [facility] Diagnosis Annual physical exam- Primary Routine general medical examination at a health care facility Acute cough Wheezing Anxiety and depression Dysthymic disorder Essential hypertension Unspecified essential hypertension Coronary artery disease involving [place] coronary artery of [place] heart without angina pectoris Mixed hyperlipidemia Elevated glucose Other abnormal glucose Anemia, unspecified type Vitamin D deficiency Unspecified vitamin D deficiency [facility] Diagnosis Encounter for screening mammogram for breast cancer- Primary [facility] Diagnosis Encounter for screening mammogram for breast cancer [facility] Diagnosis Essential hypertension- Primary Unspecified essential hypertension Anxiety and depression Dysthymic disorder Insomnia, unspecified type Coronary artery disease involving [place] coronary artery of [place] heart without angina pectoris Tobacco use disorder Mixed hyperlipidemia Elevated glucose Other abnormal glucose Vitamin D deficiency Unspecified vitamin D deficiency [facility] Diagnosis Essential hypertension- Primary Unspecified essential hypertension Mixed hyperlipidemia Coronary artery disease involving [place] coronary artery of [place] heart without angina pectoris Anxiety and depression Dysthymic disorder Insomnia, unspecified type [facility] Diagnosis Coronary artery disease involving [place] coronary artery of [place] heart without angina pectoris- Primary Essential hypertension Unspecified essential hypertension Mixed hyperlipidemia Encounter for screening for lung cancer Screening for osteoporosis Special screening for osteoporosis Asymptomatic menopause [facility] Diagnosis Ankle swelling, unspecified laterality- Primary [facility] Diagnosis Encounter for screening for lung cancer- Primary Tobacco use current [facility] Diagnosis Screening for osteoporosis Special screening for osteoporosis Asymptomatic menopause [facility] Diagnosis Tobacco use current [facility] Diagnosis Tobacco use current- Primary [facility] Diagnosis Encounter for screening mammogram for high-risk patient- Primary Insomnia, unspecified type Coronary artery disease involving [place] coronary artery of [place] heart without angina pectoris Essential hypertension Unspecified essential hypertension Mixed hyperlipidemia Tobacco abuse disorder Tobacco use disorder Encounter for screening mammogram for breast cancer [facility] Diagnosis Encounter for screening mammogram for high-risk patient- Primary Insomnia, unspecified type Coronary artery disease involving [place] coronary artery of [place] heart without angina pectoris Essential hypertension Unspecified essential hypertension Mixed hyperlipidemia Tobacco abuse disorder Tobacco use disorder Acute cough Wheezing [facility] Diagnosis Encounter for screening mammogram for high-risk patient- Primary Insomnia, unspecified type Coronary artery disease involving [place] coronary artery of [place] heart without angina pectoris Essential hypertension Unspecified essential hypertension Mixed hyperlipidemia Tobacco abuse disorder Tobacco use disorder Essential hypertension- Primary Unspecified essential hypertension Coronary artery disease involving [place] coronary artery of [place] heart without angina pectoris Anxiety and depression Dysthymic disorder [facility] Diagnosis Segmental and somatic dysfunction of cervical region Spondylosis without myelopathy or radiculopathy, cervical region documented in this encounter [facility] Work Phone: Evaluation note* Diagnosis Encounter for screening mammogram for high-risk patient- Primary Insomnia, unspecified type Coronary artery disease involving [place] coronary artery of [place] heart without angina pectoris Essential hypertension Unspecified essential hypertension Mixed hyperlipidemia Tobacco abuse disorder Tobacco use disorder Essential hypertension Unspecified essential hypertension Mixed hyperlipidemia Medication management Encounter for long-term (current) use of other medications [facility] Diagnosis Encounter for screening mammogram for high-risk patient- Primary Insomnia, unspecified type Coronary artery disease involving [place] coronary artery of [place] heart without angina pectoris Essential hypertension Unspecified essential hypertension Mixed hyperlipidemia Tobacco abuse disorder Tobacco use disorder Medicare annual wellness visit, subsequent- Primary Routine general medical examination at a health care facility Tobacco use disorder [facility] Diagnosis Encounter for screening mammogram for high-risk patient- Primary Insomnia, unspecified type Coronary artery disease involving [place] coronary artery of [place] heart without angina pectoris Essential hypertension Unspecified essential hypertension Mixed hyperlipidemia Tobacco abuse disorder Tobacco use disorder Encounter for screening [facility] for [facility] cancer [facility] Encounter for screening mammogram for high-risk patient- Primary Insomnia, unspecified type Coronary artery disease involving [place] coronary artery of [place] heart without angina pectoris Essential hypertension Unspecified essential hypertension Mixed hyperlipidemia Tobacco abuse disorder Tobacco use disorder Cigarette smoker- Primary Tobacco use disorder [facility] N[facility] No data available for this section [facility] Hospital Discharge instructions No data available for this section [facility] Progress note No data available for this section [facility] Reason for referral (narrative)* Diagnostic Procedure Only (Routine) - Closed Specialty Diagnoses / Procedures Referred By Radha t Referred To Contact [facility] Diagnoses Encounter for screening mammogram for breast cancer Procedures TRINA SCREENING SCREENING MAMMOGRAPHY BI 2-VIEW BREAST INC CAD Shaylee Gomes APRN.CNP [address] [place] [address] [facility] [address] [address] Referral ID Status Reason Start Date Expiration Date V isits Requested Visits Authorized [id number] Closed Auto-Generate d Referral 03/02/2023 03/30/2024 1 1 [facility] for referral (narrative)* Diagnostic Procedure Only (Routine) - Closed Specialty Diagnoses / Procedures Referred By Radha t Referred To Contact BR IM[facility] Diagnoses Encounter for screening mammogram for breast cancer Procedures TRINA SCREENING SCREENING MAMMOGRAPHY BI 2-VIEW BREAST INC CAD Shaylee Gomes APRN.CNP [address] [place] [address] [facility] [address] [place] [address] Referral ID Status Reason Start Date Expiration Date V isits Requested Visits Authorized [id number] Closed Auto-Generate d Referral 03/02/2023 03/30/2024 1 1 [facility] for referral (narrative)* Diagnostic Procedure Only (Routine) - Authorized Specialty Diagnoses / Procedures Referred By Contac t Referred To Contact XR IMAGING Diagnoses Screening for osteoporosis Asymptomatic menopause Procedures DXA-AXIAL SKELETON Usha Gomes APRN.CAMPUS REP [address] [place] [address] [place] [address] Referral ID Status Reason Start Date Expiration Date Visits Requested Visits Authorized [id number] Authorized Auto-Generat ed Referral 12/10/2023 01/08/2025 1 1 * Transition of Care (Routine) - Ref Not Required Specialty Diagnoses / Procedures Referred By Contac t Referred To Contact Diagnoses Encounter for screening for lung cancer Procedures CONSULT LUNG CANCER SCREENING CLINIC Usha Gomes APRN.CAMPUS REP [address] [place] [address] Referral ID Status Reason Start Date Expiration Date Visits Requested Visits Authorized [id number] Ref Not Required PCP Requested Referral 12/10/2023 03/09/2024 1 1 [facility] Diagnostic Procedure Only (Routine) - Closed Specialty Diagnoses / Procedures Referred By Contac t Referred To Contact XR IMAGING Diagnoses Screening for osteoporosis Asymptomatic menopause Procedures DXA-AXIAL SKELETON Usha Gomes APRN.CAMPUS REP [address] [place] [address] [place] [address] Referral ID Status Reason Start Date Expiration Date V isits Requested Visits Authorized [id number] Closed Auto-Generate d Referral 12/10/2023 01/08/2025 1 1 [facility] Diagnostic Procedure Only (Routine) - New Request Specialty Diagnoses / Procedures Referred By Contac t Referred To Contact [facility] Diagnoses Encounter for screening mammogram for breast cancer Procedures TRINA SCREENING W MIHIR SCREENING DIGITAL BREAST TOMOSYNTHESIS BI SCREENING MAMMOGRAPHY BI 2-VIEW BREAST INC Shira Dinh MD [address] [place] [address] [facility] [address] [place] [address] Referral ID Status Reason Start Date Expiration Date Visits Requested Visits Authorized [id number] New Request Auto-Generat ed Referral 04/30/2024 05/30/2025 1 1 [facility] for visit Narrative* Diagnostic Procedure Only (Routine) - Closed Specialty Diagnoses / Procedures Referred By Contac t Referred To Contact BR IMAGING Diagnoses Encounter for screening mammogram for breast cancer Procedures TRINA SCREENING SCREENING MAMMOGRAPHY BI 2-VIEW BREAST INC CAD Shaylee Gomes, [employer].CAMPUS REP [address] [place] [address] [facility] [address] [place] [address] Referral ID Status Reason Start Date Expiration Date V isits Requested Visits Authorized [id number] Closed Auto-Generate d Referral 03/02/2023 03/30/2024 1 1 [facility] for visit Narrative* Diagnostic Procedure Only (Routine) - Closed Specialty Diagnoses / Procedures Referred By Contac t Referred To Contact XR IMAGING Diagnoses Screening for osteoporosis Asymptomatic menopause Procedures DXA-AXIAL SKELETON Usha Gomes, [employer].CAMPUS REP [address] [place] [address] [place] [address] Referral ID Status Reason Start Date Expiration Date V isits Requested Visits Authorized [id number] Closed Auto-Generate d Referral 12/10/2023 01/08/2025 1 1 [facility] for visit Narrative* Imaging (Routine) - Pending Review Specialty Diagnoses / Procedures Referred By Contac t Referred To Contact Radiology Diagnoses Segmental and somatic dysfunction of cervical region Spondylosis without myelopathy or radiculopathy, cervical region Procedures XR cervical spine complete 6+ views XR cervical spine complete 4-5 views Belle Grider, MARCUS [address] [place] [address] Phone: tel: fax: Referral ID Status Reason Start Date Expiration Date Visits Requested Visits Authorized [id number] Pending Review Perform Procedure 4 06/30/2025 1 1 [facility] Work Phone: Reason for visit Narrative* Diagnostic Procedure Only (Routine) - Closed Specialty Diagnoses / Procedures Referred By Contac t Referred To Contact [facility] Diagnoses Encounter for screening mammogram for breast cancer Procedures TRINA SCREENING W MIHIR SCREENING DIGITAL BREAST TOMOSYNTHESIS BI SCREENING MAMMOGRAPHY BI 2-VIEW BREAST INC CAD Shira Bullard MD [address] [place] [address] Phone: tel: fax: [facility] [address] [facility] [place] [address] Referral ID Status Reason Start Date Expiration Date V isits Requested Visits Authorized [id number] Closed Auto-Generate d Referral 04/30/2024 05/30/2025 1 1 [facility] Chief Complaint and Reason for Visit Chief Complaint 10 M FU E ORDERS ENDOCARDITIS-VALVE, MURMUR Reason for Visit [id number] Essential (primary) hypertension History of coronary artery stent placement Pure hypercholesterolemia Valvular heart disease Chief Complaint cardiac clearance ABN EKG ABN EKG Reason for Visit Abnormal ECG [id number] Essential (primary) hypertension History of coronary artery stent placement Nicotine dependence, cigarettes, uncomplicated Pure hypercholesterolemia Valvular heart disease Pre-operative cardiovascular examination Chief Complaint GI BLEED Reason for Visit Acute GI bleeding Chief Complaint 1 Y FU PREV PFM ENDOCARDITIS, VALVE UNSPECIFIED Amb Documentation Reason for Visit Essential (primary) hypertension History of coronary artery stent placement Nicotine dependence, cigarettes, uncomplicated Pure hypercholesterolemia Valvular heart disease Family History Relationship Condition Age at Onset Recorded Date/T jona father Myocardial infarction Unknown mother Myocardial infarction Unknown brother Coronary artery disease Unknown Hypertension Unknown sister Hypertension Unknown Advance Directives Advance Directive Response Recorded Date/ Time Living Will No April 13 0 7:55pm Power of Mail List Librarian No April 13 020 7:55pm Documents on File Type Date Recorded 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 Advance Directive(s) 04/25/2019 7:07 AM Advance Directive(s) 08/23/2018 5:49 AM Advance Directive(s) 07/31/2018 3:56 PM Documents on File Type Date Recorded 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 Advance Directive(s) 04/25/2019 7:07 AM Advance Directive(s) 08/23/2018 5:49 AM Advance Directive(s) 07/31/2018 3:56 PM Advance Directive Response Recorded Date/ Time Living Will Yes December 04, 2022 12:19pm Power of Mail List Librarian Yes December 04 12:19pm Name of Medical Power of Mail List Librarian Jerry cuadra December 04, 2022 12:19pm Advance Directive Response Recorded Date/ Time Living Will Yes December 04, 2022 2:34pm Power of Mail List Librarian Yes December 04 2:34pm Summary Purpose Reason for Referral Specialty Diagnoses / Procedures Referred By Contac t Referred To Contact CT IMAGING Diagnoses Tobacco use current Procedures CT LUNG SCREEN WO IVCON COMPUTED TOMOGRAPHY THORAX LW DOSE LNG CA Tiny Soto APRN.CAMPUS REP [address] [place] [id number] [id number] Referral ID Status Reason Start Date Expiration Date Visits Requested Visits Authorized [id number] Pending Review Auto-Generat ed Referral 01/14/2024 02/12/2025 1 1 Additional Source Comments Goals (unrecognized section and content) Goals may be documented in a n alternate section No data available for this sectionGoals may be documented in an alternate section No data available for this section No data available for this sectionGoals may be documented in an alternate sectionGoals may be documented in an alternate section Source Comments (unrecognize d section and content) In the event this informatio n is protected by the Federal Confidentiality of Alcohol and Drug Abuse Patient Records regulations: The Federal rules restrict any use of the information to criminally investigate or prosecute any alcohol or drug abuse patient.[facility] event this information is protected by the Federal Confidentiality of Alcohol and Drug Abuse Patient Records regulations: The Federal rules restrict any use of the information to criminally investigate or prosecute any alcohol or drug abuse patient.[facility] the event this information is protected by the Federal Confidentiality of Alcohol and Drug Abuse Patient Records regulations: The Federal rules restrict any use of the information to criminally investigate or prosecute any alcohol or drug abuse patient.[facility]In the event this information is protected by the Federal Confidentiality of Alcohol and Drug Abuse Patient Records regulations: The Federal rules restrict any use of the information to criminally investigate or prosecute any alcohol or drug abuse patient.[facility] DaytonIn the event this information is protected by the Federal Confidentiality of Alcohol and Drug Abuse Patient Records regulations: The Federal rules restrict any use of the information to criminally investigate or prosecute any alcohol or drug abuse patient.[facility] DaytonIn the event this information is protected by the Federal Confidentiality of Alcohol and Drug Abuse Patient Records regulations: The Federal rules restrict any use of the information to criminally investigate or prosecute any alcohol or drug abuse patient.[facility] DaytonIn the event this information is protected by the Federal Confidentiality of Alcohol and Drug Abuse Patient Records regulations: The Federal rules restrict any use of the information to criminally investigate or prosecute any alcohol or drug abuse patient.[facility] DaytonIn the event this information is protected by the Federal Confidentiality of Alcohol and Drug Abuse Patient Records regulations: The Federal rules restrict any use of the information to criminally investigate or prosecute any alcohol or drug abuse patient.[facility] DaytonIn the event this information is protected by the Federal Confidentiality of Alcohol and Drug Abuse Patient Records regulations: The Federal rules restrict any use of the information to criminally investigate or prosecute any alcohol or drug abuse patient.[facility] DaytonIn the event this information is protected by the Federal Confidentiality of Alcohol and Drug Abuse Patient Records regulations: The Federal rules restrict any use of the information to criminally investigate or prosecute any alcohol or drug abuse patient.[facility] DaytonIn the event this information is protected by the Federal Confidentiality of Alcohol and Drug Abuse Patient Records regulations: The Federal rules restrict any use of the information to criminally investigate or prosecute any alcohol or drug abuse patient.[facility] DaytonIn the event this information is protected by the Federal Confidentiality of Alcohol and Drug Abuse Patient Records regulations: The Federal rules restrict any use of the information to criminally investigate or prosecute any alcohol or drug abuse patient.[facility] DaytonIn the event this information is protected by the Federal Confidentiality of Alcohol and Drug Abuse Patient Records regulations: The Federal rules restrict any use of the information to criminally investigate or prosecute any alcohol or drug abuse patient.[facility] DaytonIn the event this information is protected by the Federal Confidentiality of Alcohol and Drug Abuse Patient Records regulations: The Federal rules restrict any use of the information to criminally investigate or prosecute any alcohol or drug abuse patient.[facility] DaytonIn the event this information is protected by the Federal Confidentiality of Alcohol and Drug Abuse Patient Records regulations: The Federal rules restrict any use of the information to criminally investigate or prosecute any alcohol or drug abuse patient.[facility] DaytonIn the event this information is protected by the Federal Confidentiality of Alcohol and Drug Abuse Patient Records regulations: The Federal rules restrict any use of the information to criminally investigate or prosecute any alcohol or drug abuse patient.[facility] DaytonIn the event this information is protected by the Federal Confidentiality of Alcohol and Drug Abuse Patient Records regulations: The Federal rules restrict any use of the information to criminally investigate or prosecute any alcohol or drug abuse patient.[facility] DaytonIn the event this information is protected by the Federal Confidentiality of Alcohol and Drug Abuse Patient Records regulations: The Federal rules restrict any use of the information to criminally investigate or prosecute any alcohol or drug abuse patient.[facility] DaytonIn the event this information is protected by the Federal Confidentiality of Alcohol and Drug Abuse Patient Records regulations: The Federal rules restrict any use of the information to criminally investigate or prosecute any alcohol or drug abuse patient.[facility] DaytonIn the event this information is protected by the Federal Confidentiality of Alcohol and Drug Abuse Patient Records regulations: The Federal rules restrict any use of the information to criminally investigate or prosecute any alcohol or drug abuse patient.[facility] DaytonIn the event this information is protected by the Federal Confidentiality of Alcohol and Drug Abuse Patient Records regulations: The Federal rules restrict any use of the information to criminally investigate or prosecute any alcohol or drug abuse patient.[facility] DaytonIn the event this information is protected by the Federal Confidentiality of Alcohol and Drug Abuse Patient Records regulations: The Federal rules restrict any use of the information to criminally investigate or prosecute any alcohol or drug abuse patient.[facility] DaytonIn the event this information is protected by the Federal Confidentiality of Alcohol and Drug Abuse Patient Records regulations: The Federal rules restrict any use of the information to criminally investigate or prosecute any alcohol or drug abuse patient.[facility] DaytonIn the event this information is protected by the Federal Confidentiality of Alcohol and Drug Abuse Patient Records regulations: The Federal rules restrict any use of the information to criminally investigate or prosecute any alcohol or drug abuse patient.[facility] DaytonIn the event this information is protected by the Federal Confidentiality of Alcohol and Drug Abuse Patient Records regulations: The Federal rules restrict any use of the information to criminally investigate or prosecute any alcohol or drug abuse patient.[facility] DaytonIn the event this information is protected by the Federal Confidentiality of Alcohol and Drug Abuse Patient Records regulations: The Federal rules restrict any use of the information to criminally investigate or prosecute any alcohol or drug abuse patient.[facility] DaytonIn the event this information is protected by the Federal Confidentiality of Alcohol and Drug Abuse Patient Records regulations: The Federal rules restrict any use of the information to criminally investigate or prosecute any alcohol or drug abuse patient.[facility] DaytonIn the event this information is protected by the Federal Confidentiality of Alcohol and Drug Abuse Patient Records regulations: The Federal rules restrict any use of the information to criminally investigate or prosecute any alcohol or drug abuse patient.[facility] DaytonIn the event this information is protected by the Federal Confidentiality of Alcohol and Drug Abuse Patient Records regulations: The Federal rules restrict any use of the information to criminally investigate or prosecute any alcohol or drug abuse patient.[facility] DaytonIn the event this information is protected by the Federal Confidentiality of Alcohol and Drug Abuse Patient Records regulations: The Federal rules restrict any use of the information to criminally investigate or prosecute any alcohol or drug abuse patient.[facility] DaytonIn the event this information is protected by the Federal Confidentiality of Alcohol and Drug Abuse Patient Records regulations: The Federal rules restrict any use of the information to criminally investigate or prosecute any alcohol or drug abuse patient.[facility] Reason for Visit (unrecogniz ed section and content) Specialty Diagnoses / Procedures Referred By Radha t Referred To Contact Radiology / [facility] Diagnoses trina screening Procedures SCREENING MAMMOGRAPHY BI 2-VIEW BREAST INC CAD MAMMOGRAM SCREENING Shira Bullard MD [address] [place] [address] Radio Mammo [facility] [address] [place] [address] Referral ID Status Reason Start Date Expiration Date V isits Requested Visits Authorized [id number] New Request 01/31/2022 2022 1 1 Reason Comments Patient Question Reason Comments Patient Update Lab Orders Reason Comments Recheck Hosp follow up, GI b leed Reason Comments Yearly Exam Annual Exam Reason Comments Results Reason Comments Mammogram order Reason Comments Refill Request Reason Comments Recheck 6 month follow up Reason Comments Med Change Request Reason Comments Recheck BP meds Reason Comments F/U HTN 3 Month Reason Onset Date Comments Refill Request 12/26/2023 Reason Comments Edema bilateral feet Reason Comments New Patient LCS Specialty Diagnoses / Procedures Referred By Radha jacobsen Referred To Contact Diagnoses Encounter for screening for lung cancer Procedures CONSULT LUNG CANCER SCREENING CLINIC Usha Gomes [facility] [address] [place] [address] Referral ID Status Reason Start Date Expiration Date Visits Requested Visits Authorized [id number] Ref Not Required PCP Requested Referral 12/10/2023 03/09/2024 [address] Specialty Diagnoses / Procedures Referred By Radha jacobsen Referred To Contact CT IMAGING Diagnoses Tobacco use current Procedures CT LUNG SCREEN WO IVCON COMPUTED TOMOGRAPHY THORAX LW DOSE LNG CA SCR C- Tiny Caldreon, [facility] [address] [place] [address] [place] [address] Referral ID Status Reason Start Date Expiration Date V isits Requested Visits Authorized [id number] Closed Auto-Generate d Referral 01/15/2024 02/13/2024 1 1 Reason Comments Recheck 6 month follow up Reason Comments Medicare Wellness Exam Care Teams (unrecognized sec tion and content) Melt Down Furnace Operator Relationship Specialty Start Date End Date Shira Bullard MD [address] [place], [place] [id number] PCP - General Internal Medicine 04/16/18 Melt Down Furnace Operator Relationship Specialty Start Date End Date Shira Bullard MD [address] [place], [place] [id number] PCP - General Internal Medicine 04/16/18 Melt Down Furnace Operator Relationship Specialty Start Date End Date Shira Bullard MD [address] [place], [place] [id number] [phone] PCP - General Internal Medicine 04/16/18 Team Status: Active Member Role Status Dates Dr. Shira Bullard MD Family Provider Active Dr. Shira Bullard MD Primary Care Provider Active Team Status: Active Member Role Status Dates Dr. Shira Bullard MD Primary Care Provider Active Dr. Sammy Anderson MD Emergency Provider Active Dr. Vicki Barnes MD Admit Provider, Attending Prov ider Active Melt Down Furnace Operator Relationship Specialty Start Date End Date Shira Bullard MD [address] [facility] [place] [address] PCP - General Internal Medicine 04/16/18 Melt Down Furnace Operator Relationship Specialty Start Date End Date Shira Bullard MD [address] [facility] [place] [place] [address] PCP - General Internal Medicine 04/16/18 Melt Down Furnace Operator Relationship Specialty Start Date End Date Shira Bullard MD [address] [facility] [place] [address] PCP - General Internal Medicine 04/16/18 Melt Down Furnace Operator Relationship Specialty Start Date End Date Shira Bullard MD [address] [facility] [place] [place] [address] PCP - General Internal Medicine 04/16/18 Melt Down Furnace Operator Relationship Specialty Start Date End Date Shira Bullard MD [address] [facility] [place] [address] PCP - General Internal Medicine 04/16/18 Melt Down Furnace Operator Relationship Specialty Start Date End Date Shira Bullard MD [address] [facility] [place] [address] PCP - General Internal Medicine 04/16/18 Melt Down Furnace Operator Relationship Specialty Start Date End Date Shira Bullard MD [address] [facility] [place] [address] PCP - General Internal Medicine 04/16/18 Melt Down Furnace Operator Relationship Specialty Start Date End Date Shira Bullard MD [address] [place] [address] PCP - General Internal Medicine 04/16/18 Melt Down Furnace Operator Relationship Specialty Start Date End Date Shira Bullard MD [address] [place] [address] PCP - General Internal Medicine 04/16/18 Melt Down Furnace Operator Relationship Specialty Start Date End Date Shira Bullard MD [address] [place], [place] [address] PCP - General Internal Medicine 04/16/18 Team Status: Active Member Role Status Dates Dr. Shira Bullard MD Family Provider Active USHA GOMES , VERTICAL CONTOUR BAND SAW OPERATOR-C Primary Care Provider Active Team Status: Inactive Member Role Status Dates Dr. Shira Bullard MD Primary Care Provider, Referring Provider Active Dr. Feliz Clancy MD Active Jerry Pizarro VERTICAL CONTOUR BAND SAW OPERATOR, VERTICAL CONTOUR BAND SAW OPERATOR-C Attending Provider Active Team Status: Active Member Role Status Dates USHA GOMES , VERTICAL CONTOUR BAND SAW OPERATOR-C Primary Care Provider Active Dr. Hao Pantoja MD Attending Provider Active Team Status: Active Member Role Status Dates USHA GOMES , VERTICAL CONTOUR BAND SAW OPERATOR-C Primary Care Provider Active Jerry Pizarro VERTICAL CONTOUR BAND SAW OPERATOR, VERTICAL CONTOUR BAND SAW OPERATOR-C Attending Provider Active Team Status: Inactive Member Role Status Dates Jerry Pizarro VERTICAL CONTOUR BAND SAW OPERATOR, VERTICAL CONTOUR BAND SAW OPERATOR-C Attending Provider, Referring Pro vider Active USHA GOMES , VERTICAL CONTOUR BAND SAW OPERATOR-C Primary Care Provider Active Melt Down Furnace Operator Relationship Specialty Start Date End Date Shira Bullard MD [address] [place] [address] PCP - General Internal Medicine 04/16/18 Melt Down Furnace Operator Relationship Specialty Start Date End Date Shira Bullard MD [address] [place], [place] [address] PCP - General Internal Medicine 04/16/18 Melt Down Furnace Operator Relationship Specialty Start Date End Date Shira Bullard MD [address] [place] [address] PCP - General Internal Medicine 04/16/18 Melt Down Furnace Operator Relationship Specialty Start Date End Date Shira Bullard MD [address] [place] [address] PCP - General Internal Medicine 04/16/18 Melt Down Furnace Operator Relationship Specialty Start Date End Date Shira Bullard MD [address] [place] [address] PCP - General Internal Medicine 04/16/18 Melt Down Furnace Operator Relationship Specialty Start Date End Date Shira Bullard MD [address] [place] [address] PCP - General Internal Medicine 04/16/18 Melt Down Furnace Operator Relationship Specialty Start Date End Date Shira Bullard MD [address] [place] [address] PCP - General Internal Medicine 04/16/18 Melt Down Furnace Operator Relationship Specialty Start Date End Date Shira Bullard MD [address] [place] [address] PCP - General Internal Medicine 04/16/18 Melt Down Furnace Operator Relationship Specialty Start Date End Date Shira Bullard MD [address] [place] [address] PCP - General Internal Medicine 04/16/18 Melt Down Furnace Operator Relationship Specialty Start Date End Date Shira Bullard MD [address] [place] [address] PCP - General Internal Medicine 04/16/18 Melt Down Furnace Operator Relationship Specialty Start Date End Date Usha Gomes [facility] [address] [place] [address] PCP - General 06/30/24 Melt Down Furnace Operator Relationship Specialty Start Date End Date Shira Bullard MD [address] [place] [address] PCP - General Internal Medicine 04/16/18 Usha Gomes [facility] RE[facility] [address] [place] [address] Tactical Debriefer Internal Medicine 08/10/24 Melt Down Furnace Operator Relationship Specialty Start Date End Date Shira Bullard MD [address] [place] [address] PCP - General Internal Medicine 04/16/18 Usha Gomes [facility] RE[facility] [address] [place] [address] Tactical Debriefer Internal Medicine 08/10/24 Melt Down Furnace Operator Relationship Specialty Start Date End Date Shira Bullard MD [address] [place] [address] PCP - General Internal Medicine 04/16/18 Usha Gomes [facility] [address] [place] [address] Tactical Debriefer Internal Medicine 08/10/24 Melt Down Furnace Operator Relationship Specialty Start Date End Date Shira Bullard MD [address] [place] [address] PCP - General Internal Medicine 04/16/18 Older, [facility] [address] [place] [address] Tactical Debriefer Internal Medicine 08/10/24 Care Team (unrecognized sect ion and content) Care Team Personnel Name: SHIRA BULLARD MD Member Role: Primary Care Physician Address: Address: [address] [place], [place] [id number] Care Team Related Persons Name: JERRY LYNCH Address: Home [address] [place] [address] Care Team Personnel Name: SHIRA BULLARD MD Member Role: Primary Care Physician Address: Address: [address] [place], [place] [id number] Care Team Related Persons Name: JERRY LYNCH Address: Home [address] [place] [address] Care Team Personnel Name: SHIRA BULLARD MD Member Role: Primary Care Physician Address: Address: [address] [place] [address] Care Team Related Persons Name: JERRY LYNCH Address: Home [address] [place] [address] INFORMATION SOURCE (unrecogn ized section and content) DATE CREATED AUTHOR 09/01/2022 [facility] ([place]) DATE CREATED AUTHOR AUTHOR'S ORGANIZ ATION 07/04/2024 [facility] DATE CREATED AUTHOR AUTHOR'S ORGANIZ ATION 12/09/2024 [facility] DATE CREATED AUTHOR AUTHOR'S ORGANIZ ATION 01/07/[address] [facility] FOR RECORDS PERTAINING TO PATIENTS WHO ARE OR HAVE BEEN ENROLLED IN A CHEMICAL DEPENDENCY/SUBSTANCEABUSE PROGRAM, SOME INFORMATION MAY BE OMITTED. This clinical summary was aggregated from multiple sources. Caution should be exercised in using it in the provision of clinical care. This summary normalizes information from multiple sources, and as a consequence, information in this document may materially change the coding, format and clinical context of patient data. In addition, data may be omitted in some cases. CLINICAL DECISIONS SHOULD BE BASED ON THE PRIMARY CLINICAL RECORDS. [email or web address] provides no warranty or guarantee of the accuracy or completeness of information in this document.
== END | disposition home or self-care (01) ==
LOC: OPMRI 07:05
PROVIDERS: PCP Nurse Practitioner; Referring Provider Physician Assistant Surgical; Visit Provider Physician Assistant Surgical
DX: S83.8X1A Sprain of other specified parts of right knee, initial encounter (principal); M25.361 Other instability, right knee; X58.XXXA Exposure to other specified factors, initial encounter
CPT/HCPCS: 73721